=== PATIENT | male | born 1945 | race Caucasian/White ===

== ENCOUNTER 2020-02-05 09:10 | Outpatient (CLI) | payer MEDICARE, SELFPAY ==
[2020-02-05 10:41] LABS: Anion Gap 6 mmol/L (8-16); Blood Urea Nitrogen 26 mg/dL (9-20); Calcium 9.4 mg/dL (8.4-10.2); Carbon Dioxide 30 mmol/L (22-30); Chloride 105 mmol/L (98-107); Estimated Glomerular Filt Rate > 60; Glucose 106 mg/dL (75-110); Potassium 3.5 mmol/L (3.4-5.0); Sodium 141 mmol/L (137-145)
== END 2020-02-05 09:11 | disposition home or self-care (01) ==
PROVIDERS: PCP Nurse Practitioner Family; Visit Provider Nurse Practitioner Adult Health
DX: R79.89 Other specified abnormal findings of blood chemistry (principal)
CPT/HCPCS: 36415; 80048

== ENCOUNTER 2020-03-25 09:34 | Emergency (ER) | payer MEDICARE, SELFPAY ==
--- NOTE | ~2020-03-25 | XR_ITS ---
EXAMINATION: XR chest 1V portable DATE: 03/25/2020 11:19 INDICATION: Edema TECHNIQUE: frontal view of the chest was obtained. COMPARISON: Chest radiograph dated 06/01/2009 FINDINGS: Eventration along the right hemidiaphragm. Opacities at the lateral aspect of both the left and right lung bases and favor atelectasis over pneumonia. No pulmonary edema, pleural effusion or pneumothora x. Heart size is normal with small bilateral paracardial fat pads. Atherosclerotic aorta. IMPRESSION: 1. Bibasilar opacities and favor atelectasis over pneumonia. Reviewed, dictated and finalized at location A. UNITY RELATIONS SPECIALIST
[2020-03-25 10:17] VITALS: BP 119/77; PULSE 74; RESP 18; TEMP 36.6; O2SAT 97
--- NOTE | 2020-03-25 10:24 | ECG_ITS ---
Measurements Intervals [place] Rate: 66 P: 25 TX: 152 QRS: 30 QRSD: 100 T: 57 QT: 406 QTc: 428 Interpretive Statements SINUS RHYTHM DELAYED PRECORDIAL R/S TRANSITION BASELINE ARTIFACT- I, III, AVR, AVL BORDERLINE ECG Electronically Signed On 03-25-2020 10:37:47 DAY SPA MANAGER by All Morrison D.O.
--- NOTE | 2020-03-25 10:25 | ED.GENADULT ---
HPI - General Adult General Chief complaint: Extremity Injury, Lower Stated complaint: Bilateral Leg Edema Time Seen by Provider: 03/25/20 10:02 Source: patient Mode of arrival: ambulatory Limitations: no limitations History of Present Illness HPI narrative: 74 years old white male presented to the ED because of swelling of the lower extremity noticed yesterday slight itching, patient had similar symptoms in the past and got better on Lasix for 2 days and Adderall. Which he stopped because of possible kidney trouble. Patient denies any fever, chills, nausea, vomiting, chest pain, shortness of breath. History of varicose veins. Related Data Home Medications Medication Instructions Recorded Confirmed albuterol mcg INHALATION 03/25/20 amlodipine 10 mg PO DAILY 03/25/20 aspirin mg PO 03/25/20 finasteride 5 mg PO DAILY 03/25/20 fluoxetine 40 mg PO DAILY 03/25/20 hydrochlorothiazide 25 mg PO DAILY 03/25/20 losartan 100 mg PO DAILY 03/25/20 rosuvastatin 40 mg PO DAILY 03/25/20 umeclidinium-vilanterol [Anoro 1 inh INHALATION DAILY 03/25/20 Ellipta] Allergies Allergy/AdvReac Type Severity Reaction Status Date / Time Quinolones Allergy Mild RASH Verified 03/25/20 10:20 celecoxib Allergy Unknown Unknown Verified 03/25/20 10:20 levofloxacin Allergy Unknown Unknown Verified 03/25/20 10:20 Penicillins Allergy Unknown Unknown Verified 03/25/20 10:20 Review of Systems Review of Systems: Narrative: CONSTITUTIONAL: Denies fever, chills, or sweats. EYES: Denies visual changes, redness, or discharge. ENT: Denies rhinorrhea, congestion, sore throat, or otalgia. CARDIOVASCULAR: Denies chest pain, palpitations, or edema. RESPIRATORY: Denies cough or dyspnea. GASTROINTESTINAL: Denies abdominal pain, nausea, vomiting, or diarrhea. GENITOURINARY: Denies dysuria or hematuria. SKIN: Denies rash or itching. MUSCULOSKELETAL: Denies back pain, joint pain, or myalgia. NEUROLOGIC: Denies headache, numbness, or weakness. PSYCHIATRIC: Denies anxiety or depression. [facility] Social History Social History Smoking end date: 04/16/96 Alcohol intake: never Exam Narrative: Exam Narrative: General appearance: Well-developed, well-nourished Skin: Normal color, 1+ edema at the ankles bilaterally up to the mid lower legs, with slight erythematous changes, and diffuse tenderness anteriorly significant on the right lower extremity more than the left. Varicose veins bilaterally Head: Normocephalic, nontraumatic Eyes: Clear conjunctiva ENT: Oropharynx normal, ears normal, nose normal Neck: Supple, nontender Chest and respiratory: Airway patent, no respiratory distress, no accessory muscle use Heart: Regular rate/rhythm Abdomen: Soft, nontender, no organomegaly, quiet bowel sounds Vascular: Normal peripheral pulses, normal capillary refill. Musculoskeletal: Normal range of motion, nontender back Neurologic: Alert and oriented ?3, DRY DIP WORKER is normal as tested, no gross motor deficit Course Course Emergency Course: Stable DISTRIBUTION LINEMAN/PA Physician Supervision Dr. Tavares Consultations Date: 03/25/20 Time: 13:35 Vital Signs Vital signs: Vital Signs Temperature 36.6 C 03/25/20 10:17 Pulse Rate 74 03/25/20 10:17 Respiratory Rate 18 03/25/20 10:17 Blood Pressure 119/77 03/25/20 10:17 Pulse Oximetry 97 03/25/20 10:17 Temperature 36.6 C 03/25/20 10:17 Pulse Rate 74 03/25/20 10:17 Respiratory Rate 18 03/25/20 10:17 Blood Pressure 119/77 03/25/20 10:17 Pulse Oximetry 97 03/25/20 10:17 Medical Decision Making MDM Narrative Medical decision making narrative: Varicose vein insufficiency with
[2020-03-25 10:47] LABS: Basophils Percent Auto 0.3 % (0.2-1.2); Eosinophils Absolute Auto 0.2 K/mm3 (0-0.3); Eosinophils Percent Auto 2.4 % (0-4.4); Hematocrit 42.4 % (42.0-52.0); Immature Granulocyte Absolute 0.02 K/mm3 (0.00-0.031); Immature Granulocyte Percent A 0.3 % (0-0.5); Lymphocytes Absolute Auto 1.15 K/mm3 (0.9-3.2); Mean Corpuscular Volume 84.8 fl (80-100); Mean Platelet Volume 10.5 fl (7.4-10.4); Monocytes Absolute Auto 0.7 K/mm3 (0.1-0.6); Monocytes Percent Auto 9.7 % (2.6-8.5); Neutrophils Absolute Auto 5.5 K/mm3 (1.3-6.7); Neutrophils Percent Auto 72.3 % (45.5-73.1); Platelet Count Result 173 k/mm3 (150-375); Red Cell Distribution Width 14.6 % (11.5-14.5); White Blood Count 7.7 K/mm3 (4.5-10.0)
[2020-03-25 10:48] LABS: Add Urine Microscopic? NO; Appearance Urine Clear (Clear); Bilirubin Urine Negative (Negative); Blood Urine Negative (Negative); Color Urine Straw (Yellow); Glucose Urine UA Negative (Negative); Ketones Urine Negative (Negative); Leukocyte Esterase Ur Negative LEU/UL (Negative); Nitrate Urine Negative (Negative); Protein Urine Negative (Negative); Specific Grav Ur 1.012 (1.001-1.035); Urobilinogen Urine Negative mg/dL (<2.0)
[2020-03-25 11:02] LABS: Alanine Aminotransferase 30 U/L (4-50); Albumin Level 3.6 g/dL (3.5-5.1); Alkaline Phosphatase 91 U/L (38-126); Anion Gap 5 mmol/L (8-16); Aspartate Amino Transferase 24 U/L (17-59); Bilirubin,Total 0.3 mg/dL (0.2-1.3); Blood Urea Nitrogen 22 mg/dL (9-20); Calcium 9.4 mg/dL (8.4-10.2); Carbon Dioxide 28 mmol/L (22-30); Chloride 106 mmol/L (98-107); Estimated CRCL calculation 68 ml/min; Estimated Glomerular Filt Rate > 60; Glucose 120 mg/dL (75-110); Potassium 3.6 mmol/L (3.4-5.0); Sodium 139 mmol/L (137-145)
[2020-03-25 11:10] LABS: NT Pro B Type Natriuretic Pept 112 PG/ML (5-100)
[2020-03-25 13:45] VITALS: BP 122/78; PULSE 76; RESP 18; O2SAT 99
== END 2020-03-25 13:46 | disposition home or self-care (01) ==
PROVIDERS: Emergency Provider Emergency Medicine; PCP Nurse Practitioner Family
DX: R60.0 Localized edema (principal); L03.115 Cellulitis of right lower limb; Z79.82 Long term (current) use of aspirin; R94.31 Abnormal electrocardiogram [ECG] [EKG]
CPT/HCPCS: 36415; 71045; 80053; 81003; 83880; 85025; 93005; 99283

== ENCOUNTER 2021-07-08 10:14 | Outpatient (CLI) | payer MEDICARE, SELFPAY ==
--- NOTE | ~2021-07-08 | US_ITS ---
EXAMINATION: US carotid duplex BI DATE: 07/08/2021 10:50 INDICATION: Left carotid bruit TECHNIQUE: Grayscale, color Doppler, and pulsed Doppler images of the cervical carotid arteries were obtained. The degree of vessel stenosis is placed in one of the following categories: normal, <50%, 5 0-69%, >=70% but less than near-occlusion, near-occlusion, or total occlusion. Note that percent sten osis relative to normal distal artery lumen diameter is indirectly measured from velocity measurement s as described by Efra, et al. Radiology 2003; 229:340-346. COMPARISON: None. FINDINGS: RIGHT: The right common carotid artery (CCA) peak systolic velocity (PSV) is 150 cm/s. The right internal ca rotid artery (ICA) PSV is 77 cm/s. The right ICA end-diastolic velocity (EDV) is 6 cm/s. The right IC A/CCA PSV ratio is 0.5. Grayscale and color Doppler images yield an estimate of <50% diameter reducti on from plaque in the ICA. The external carotid artery (ECA) PSV is 192 cm/s. There is antegrade flow in the right vertebral artery. LEFT: The left CCA PSV is 108 cm/s. The left ICA PSV is 124 cm/s. The left ICA EDV is 27 cm/s. The left ICA /CCA PSV ratio is 1.2. Grayscale and color Doppler images yield an estimate of <50% diameter reductio n from plaque in the ICA. The ECA PSV is 185 cm/s. There is antegrade flow in the left vertebral meryl ry. IMPRESSION: 1. <50% stenosis in the right internal carotid artery. 2. <50% stenosis in the left internal carotid artery. Reviewed, dictated and finalized at location A.
== END 2021-07-08 10:15 | disposition home or self-care (01) ==
PROVIDERS: PCP Hospitalist; Visit Provider Internal Medicine Cardiovascular Disease
DX: R09.89 Other specified symptoms and signs involving the circulatory and respiratory systems (principal); I65.23 Occlusion and stenosis of bilateral carotid arteries
CPT/HCPCS: 93880

== ENCOUNTER 2024-04-28 09:46 | Outpatient (CLI) | payer MEDICARE, SELFPAY ==
--- NOTE | 2024-04-28 09:54 | ECG_ITS ---
Test Date: 2024-04-28 10:21:02 Measurements Intervals [place] Rate: 67 P: 62 PA: 205 QRS: 30 QRSD: 113 T: 71 QT: 408 QTc: 433 Interpretive Statements SINUS RHYTHM MODERATE INTRAVENTRICULAR CONDUCTION DELAY [110+ ms QRS DURATION] Poor R wave progression WARNING: DATA QUALITY MAY AFFECT INTERPRETATION No previous ECG available for comparison Electronically Signed On 04-28-2024 13:09:40 BOOT LINER MAKER by Maria A Seymour M.D.
[2024-04-28 10:43] LABS: Hematocrit 42.5 % (42.0-52.0); Hemoglobin 13.2 g/dL (14.0-18.0); Prothrombin Time 14.1 Seconds (11.1-14.7)
[2024-04-28 10:44] LABS: Partial Thromboplastin Time 27.9 Seconds (22.3-36.8)
[2024-04-28 10:45] LABS: Anion Gap 9 mmol/L (4-12); Blood Urea Nitrogen 25 mg/dL (9-20); Calcium 9.5 mg/dL (8.4-10.2); Carbon Dioxide 24 mmol/L (22-30); Chloride 109 mmol/L (98-107); Estimated Glomerular Filt Rate 44; Glucose 100 mg/dL (65-110); Potassium 3.7 mmol/L (3.4-5.0); Sodium 142 mmol/L (137-145)
== END 2024-04-28 09:47 | disposition home or self-care (01) ==
LOC: ANHSURGERY 09:51
PROVIDERS: Anesthesiology; PCP Hospitalist; Visit Provider Urology
DX: E78.5 Hyperlipidemia, unspecified (principal); D64.9 Anemia, unspecified; I12.9 Hypertensive chronic kidney disease with stage 1 through stage 4 chronic kidney disease, or unspecified chronic kidney disease; N18.32 Chronic kidney disease, stage 3b; Z01.818 Encounter for other preprocedural examination
CPT/HCPCS: 36415; 80048; 85014; 85018; 85610; 85730; 93005

== ENCOUNTER 2024-08-02 10:48 | Emergency (ER) | payer MEDICARE, SELFPAY ==
--- NOTE | ~2024-08-02 | CT_ITS ---
EXAMINATION: CT abdomen pelvis w con DATE: 08/02/2024 12:34 INDICATION: Right lower quadrant abdominal pain TECHNIQUE: Computed tomography (CT) of the abdomen and pelvis was performed with 100 mL Omnipaque-350 intravenous contrast. Automated exposure control and iterative reconstruction technique were employe d. The dose-length product was 870.17 mGy-cm. COMPARISON: CT dated 11/25/2008 FINDINGS: There is some irregular septal line thickening at the periphery of the bilateral lung bases which cou ld be due to atelectasis, mild pulmonary edema or chronic interstitial lung disease with nonspecific interstitial pneumonia (NSIP) pattern. Heart size is normal. No pericardial or pleural effusion. Subc entimeter hepatic cyst. Gallbladder, spleen, pancreas, bilateral adrenal glands and kidneys are tawana l. Small bowel and appendix are normal. There is moderate diverticula along the sigmoid colon with fo steve wall thickening and inflammatory stranding centered about a diverticulum at the mid sigmoid colon consistent with diverticular colitis. No abscess or free peritoneal gas or fluid. Bladder is normal. Small to moderate-sized fat-containing left inguinal hernia. No pathologically enlarged abdominal or pelvic lymphadenopathy. There is calcified atherosclerosis of the aorta and many of the other arteri es. Mild lumbar and lower thoracic spondylosis. IMPRESSION: 1. Radiographically uncomplicated sigmoid diverticulitis. 2. Small to moderate-sized fat-containing left inguinal hernia. 3. Mild paraseptal and thickening at the bilateral lung bases which could be due to atelectasis, mild pulmonary edema or NSIP pattern chronic interstitial lung disease. Reviewed, dictated and finalized at location A. IMPRESSION: 1. Radiographically uncomplicated sigmoid diverticulitis. 2. Small to moderate-sized fat-containing left inguinal hernia. 3. Mild paraseptal and thickening at the bilateral lung bases which could be du e to atelectasis, mild pulmonary edema or NSIP pattern chronic interstitial yumiko g disease.
--- OUTSIDE RECORDS SUMMARY | 2024-08-02 10:50 | XMS_ITS | Patient Health Record ---
Author Organization [facility] Address [address] [place] [address] Care Team Providers Care Industrial Equipment Wirer Name Role Phone Jony Wilcox Unavailable [phone] REASON FOR REFERRAL No Information MEDICATIONS Medication SIG (Take, Route, Frequency, Duration) Notes Start Date End Date Status Losartan Potassium 50 MG TAKE 1 TABLET B Y MOUTH DAILY for 90 Active PROBLEMS Problem Type ICD Code Onset Dates Problem Status W/U Status Risk SNOMED Code Notes Problem Type 2 diabetes mellitus with hyperglycemia (E11.65) Active confirmed Hyperglycemia due to type 2 diabetes mellitus (765287695214978 ) Problem Obesity, unspecified (E66.9) Active confirmed Obesity (602685646) Problem Anxiety disorder, unspecified (F41.9) Active confirmed Anxiety disorde r (876455665) Problem Essential (primary) hypertension (I10) Active confirmed Essential hypertension (86718848) Problem Chronic kidney disease, stage 3b (N18.32) Active confirmed Chronic kidney disease stage 3B (disorder) (217806493) Encounters Encounter Location [place] [address] 09/12/2023 Jony Wilcox Chronic kidney disease, stage 3b N18.32 ; Essential (primary) hypertension I10 ; Type 2 diabetes mellitus with hyperglycemia E11.65 ; Obesity, unspecified E66.9 and Anxiety disorder, unspecified F41.9 [place] [address] 11/14/2023 Jony Wilcox Chronic kidney disease, stage 3b N18.32 ; Essential (primary) hypertension I10 ; Type 2 diabetes mellitus with hyperglycemia E11.65 ; Obesity, unspecified E66.9 and Anxiety disorder, unspecified F41.9 [place] [address] 02/07/2024 [place] [address] 02/08/2024 Jony Wilcox [place] [facility] [address] [facility] [address] [place] [address] 09/12/2023 Jony Wilcox ASSESSMENTS Encounter Date Diagnosis Assessment Notes Treatment Notes Treatment Clinical Notes Section Notes 09/12/2023 Chronic kidney disease, stage 3b (ICD-10 - N18.32) 11/14/2023 Chronic kidney disease, stage 3b (ICD-10 - N18.32) 09/12/2023 Essential (primary) hypertension (ICD-10 - I10) 11/14/2023 Essential (primary) hypertension (ICD-10 - I10) 11/14/2023 Type 2 diabetes mellitus with hyperglycemia (ICD-10 - E11.65) 09/12/2023 Type 2 diabetes mellitus with hyperglycemia (ICD-10 - E11.65) 09/12/2023 Obesity, unspecified (ICD-10 - E66.9) 11/14/2023 Obesity, unspecified (ICD-10 - E66.9) 11/14/2023 Anxiety disorder, unspecified (ICD-10 - F41.9) 09/12/2023 Anxiety disorder, unspecified (ICD-10 - F41.9) PLAN OF TREATMENT No Information
--- OUTSIDE RECORDS SUMMARY | 2024-08-02 10:50 | XMS_ITS ---
Author Organization [facility] Address [address] [address] Care Team Providers Care Embedded Nurse Name Role Phone Jony Wilcox Unavailable [phone] MEDICATIONS Medication SIG (Take, Route, Frequency, Duration) Notes Start Date End Date Status Ergocalciferol 1.25 MG (45400 UT) 1 capsule Orally Once a week for 90 day(s) 09/12/2023 06/07/2024 Active Farxiga 10 MG 1 tablet Orally Once a day for 90 09/12/2023 06/07/2024 Active Losartan Potassium 50 MG 1 tablet Orally Once a day for 90 07/11/2023 Active Calcitriol 0.25 MCG 1 capsule Orally Onc e a day for 90 day(s) 07/11/2023 04/05/2024 Active Ergocalciferol 1.25 MG (04081 UT) 1 capsule Orally Once a week for 90 day(s) 07/11/2023 04/05/2024 Active Calcitriol 0.25 MCG 1 capsule Orally Onc e a day for 90 day(s) 09/12/2023 06/07/2024 Active Allopurinol 100 MG 1 tablet Orally Once a day for 90 day(s) 09/12/2023 06/07/2024 Active Encounters Encounter Location Date Provider Diagnosis Jairo Bruno [address] [place] [address] 11/14/2023 Jony Wilcox Chronic kidney disea se, stage 3b N18.32 ; Essential (primary) hypertension I10 ; Type 2 diabetes mellitus with hyperglycemia E11.65 ; Obesity, unspecified E66.9 and Anxiety disorder, unspecified F41.9 ASSESSMENTS Encounter Date Diagnosis Assessment Notes Treatment Notes Treatment Clinical Notes Section Notes 11/14/2023 Chronic kidney disease, stage 3b (ICD-10 - N18.32) 11/14/2023 Essential (primary) hypertension (ICD-10 - I10) 11/14/2023 Type 2 diabetes mellitus with hyperglycemia (ICD-10 - E11.65) 11/14/2023 Obesity, unspecified (ICD-10 - E66.9) 11/14/2023 Anxiety disorder, unspecified (ICD-10 - F41.9) PLAN OF TREATMENT No Information Progress Notes * Ravinder HINOJOSA EDOB:[birth year] (78 yo M)Acc No.[id number]:11/14/2023 Progress Notes Patient: Ravinder HINOJOSA Provider: MD JEANIE, F.A.C.P, F.A.S.N. :1945 Age:77 Y Sex:Male Date:11/14/2023 Address:[address] [place] [address] Subjective: * Chief Complaints: * * Medical History: * Medications: Taking Losartan Potassium 50 MG Tablet 1 tablet Orally Once a day , Taking Calcitriol 0.25 MCG Capsule 1 capsule Orally Once a day , stop date 04/05/2024, Taking Ergocalciferol 1.25 MG (28376 UT) Capsule 1 capsule Orally Once a week , stop date 04/05/2024, Taking Calcitriol 0.25 MCG Capsule 1 capsule Orally Once a day , stop date 06/07/2024, Taking Allopurinol 100 MG Tablet 1 tablet Orally Once a day , stop date 06/07/2024, Taking Farxiga 10 MG Tablet 1 tablet Orally Once a day , stop date 06/07/2024, Taking Ergocalciferol 1.25 MG (60896 UT) Capsule 1 capsule Orally Once a week , stop date 06/07/2024 Objective: Assessment: * Assessment: 1. Chronic kidney disease, stage 3b - N18.32 (Primary) 2. Essential (primary) hypertension - I10 3. Type 2 diabetes mellitus with hyperglycemia - E11.65 4. Obesity, unspecified - E66.9 5. Anxiety disorder, unspecified - F41.9 Plan: * Treatment: * Billing Information: * Visit Code: 13654 Office Visit, Est Pt., Level 4. * Procedure Codes: * Sign off status: Pending * Provider: MD JEANIE, F.A.C.P, F.A.S.N. Date: 11/14/2023
--- OUTSIDE RECORDS SUMMARY | 2024-08-02 10:50 | XMS_ITS | Continuity of Care Document ---
Author Organization [email or web address] [facility] Address [address] [place] [address] Phone Care Team Providers Care Refinery Operator Visbreaking Name Role Phone Lucas KRAUSE, Jamal Unavailable Unavailable Allergies, Adverse Reactions, Alerts Substance Reaction Status Criticality carbocysteine Active No Information levofloxacin Active No Information PENICILLIN Active No Information Medications Medication Instructions Dosage Effective Dates (start - stop) Status Comments Vigamox 0.5 % eye drops Instill 1 drop in the operated eye QID x 1 week, and then TID until bottle runs out - Active ok to substitute Polytrim with same instructions 5ML bottle prednisolone acetate 1 % eye drops,suspension instill 1 drop in the operated eye QID x 1 week, TIDx 1 week, BID x 1 week then Qday x 1 week then stop - Active ketorolac 0.5 % eye drops instill 1 drop in the operated eye 3 times a day for 4 weeks - Active Vigamox 0.5 % eye drops Instill 1 drop in the operated eye QID x 1 week, and then TID until bottle runs out - Active ok to substitute Polytrim with same instructions 5ML bottle prednisolone acetate 1 % eye drops,suspension instill 1 drop in the operated eye QID x 1 week, TIDx 1 week, BID x 1 week then Qday x 1 week then stop - Active ketorolac 0.5 % eye drops instill 1 drop in the operated eye 3 times a day for 4 weeks - Active Aspirin Low Dose 81 mg tablet,delayed release take 1 tablet by oral route every day 81 MG - Active Fish Oil 1,000 mg (120 mg-180 mg) capsule take 1 capsule by oral route every day 1 capsule - Active Crestor 20 mg tablet take 1 tablet by oral route every day 20 MG - Active fluoxetine 40 mg capsule take 1 capsule by oral route every day in the morning 40 MG - Active amlodipine 10 mg tablet take 1 tablet by oral route every day 10 MG - Active losartan 25 mg tablet take 1 tablet by oral route every day 25 MG - Active Anoro Ellipta 62.5 mcg-25 mcg/actuation powder for inhalation inhale 1 puff by inhalation route every day at the same time each day 1.00 puff - Active Procedures Procedure Date Remove Cataract, Insert Lens IOLMaster-Professional Remove Cataract, Insert Lens IOLMaster-Professional No Charge Orbscan No Charge Refraction IOLMaster-Technical No Charge AScan No Charge GDX Retina Office/outpatient Visit, [facility] Advance Directives Directive Yes / No Effective Date File Name No Information Encounters Encounter Description Practice Location Reason(s) For Visit Diagnoses Date Provider Providers Copied on Encounter [facility], [address] [place], [place] [address], [place], [place], [id number], tel:[phone] [facility] No Information Jan- 0 9 Lucas Berry. [address] [place], [place], [address], [place]. tel:[phone] Referring Provider: Agnieszka Rodriguez OD, [place], [address]. tel:[phone] [facility], [address] [place] [address] [address], [place], [place], [address], tel:[phone] [facility] Professional No Information Jan- 9-201 9 Lucas Berry. [address] [facility] [place], [address], [place]. tel:[phone] Referring Provider: Agnieszka Rodriguez OD, [place], [address]. tel:[phone] [facility], [address], [place], [place], [address], [place] tel:[phone] SEC Idalia Greenberg No Information Oct-1 7- 9 Lucas Berry. [address], [place], [place], [address], [place]. tel:[phone] [facility], [address], [place], [place], [address], [place] tel:[phone] [facility] No Information Oct-0 2- 9 Lucas Berry. [address], [place], [place], [address], [place]. tel:[phone] Referring Provider: Agnieszka Rodriguez OD, [address] [place], [address]. tel:[phone] [facility], [address], [place], [place], [address], [place] tel:[phone] SEC Reed ESTEBAN Professional No Information Oct-0 9 Lucas Berry. [address] [facility], [address], [place], [place], [address], [place]. tel:[phone] Referring Provider: Agnieszka Rodriguez OD, [address] [place], [address]. tel:[phone] [facility], [address], [place], [place], [address], [place] [phone] SEC Idalia Greenberg No Information Sep-2 9 Lucas Berry. [address], [address] [place], [address], [place]. tel:[phone] Office/outpa tient Visit, [facility], [address], [place], [place], [address], tel:[phone] SEC Idalia Greenberg Cataract evaluation (chief complaint) Combined forms of age-related cataract, bilateralVitr eous degeneration, left eyePinguecula , bilateralCorn eal opacity of left eye Dec- 0201 9 Lucas Berry. [address], [place], [place], [address], [place]. tel:[phone] Specialist : Agnieszka Rodriguez OD, [address], [place], [address]. tel:[phone] erring Provider: Agnieszka Rodriguez OD, [address] [place], [address]. tel:[phone] Family History Family Member Type Diagnosis Age At Onset No Information Payers Payer name Insurance type Covered green party ID Lul garcía(s) [facility] Mdcr Adv CI [id number] Social History Type Description Quantity Date Captured Comments Sex Male Smoking Status No Information Chief Complaint And Reason For Visit No Information Reason For Referral Reason For Referral No Information Plan Of Treatment Date Type Action Status Patient Education Cataract Surgery: What to Expect at H~ completed History Of Present Illness Encounter Date Complaint History Of Prese nt Illness Cataract evaluation The 73 year old male presents for evaluation of Cataract evaluation in the right eye and left eye. Pt referred by Dr. Rodriguez in [place], [place] - waiting on notes. Pt states that vision in OS seems to be darker than with OD. Pt reports this morning his eyes have been itching. Pt denies flashes and floaters OU. Pt reports noticing more difficulty driving on bright days or at night because of glare. Pt states reading has been a little more difficult OU with glasses. Pt reports in spiritism if the light is shining in the windows he has difficulty recognizing peoples faces. Pt reports these have all been gradual over the past 6 months or so. Functional Status Date Functional Assessmen t No Information Instructions Date Instruction Additional Infor mak Impression/Plan Assessments Type Assessment Date No Information Patient Care Teams Name Effective Dates (start - stop) Status Members No Information
--- OUTSIDE RECORDS SUMMARY | 2024-08-02 10:51 | XMS_ITS | Clinical Summary ---
Author Organization [facility] [employer] Address [address] [place] [address] Care Team Providers Care Certified Alcohol And Drug Counselor Name Role Phone Michael Cheney MD Unavailable [phone] Nick Almanzar MD Primary Care Provider [phone] Source Comments [facility],non-owned Affiliates and Associated Physician Practices is amultiple site organization consisting of ambulatory clinics and hospital sitesin [place], [place], [place] and [place]. This disclosure is being madepursuant to the Care Everywhere program and may not contain all information available regarding this patient. Last updated 18.[facility] [employer] Allergies Active Allergy Reactions Criticality Noted Date Comments Levofloxacin Other Reaction: feels funny, Moxifloxacin Other Reaction: didnt feel well, Penicillins Other Reaction: hair loss, dents in arms, Medications * Be aware that medications may not be up to date on this document. Alwaysverify current medications with the patient. losartan (COZAAR) 50 MG tablet 8 Active hydroCHLOROthia zide (HYDRODIURIL) 25 MG tablet 8 Active finasteride (PROSCAR) 5 MG tablet 8 Active amLODIPine (NORVASC) 10 MG tablet 8 Active albuterol (PROVENTIL;VENT ROSEANNE) (2.5 MG/3ML) 0.083% nebulizer solution 8 Active acetaminophen-c odeine (TYLENOL #3) 300-30 MG tablet TK 1 T PO Q 4 H PRN P 0 8 Active tiZANidine (ZANAFLEX) 4 MG tabletIndicatio ns:Muscle Spasm Take 1 tablet by mouth every 8 hours as needed for Muscle Spasms Reasons: Muscle Spasm 50 tablet 1 0 Active Additional Information Patient not taking.Reported on 04/05/2021 sertraline (ZOLOFT) 100 MG tablet Take 100 mg by mouth once daily 1 Active Quinwood-3 1000 MG Take 1 capsule by mouth once daily 1 Active Fluticasone-Ume clidin-Vilant (TRELEGY ELLIPTA) 200-62.5-25 MCG/INH AEPB Inhale 1 puff by mouth once daily Active clotrimazole (MYCELEX) 10 MG loco Take 10 mg by mouth as needed 1 Active ferrous sulfate 325 (65 FE) MG tablet Take 325 mg by mouth once daily Active benzonatate (TESSALON) 200 MG capsule Take 200 mg by mouth 3 times daily 1 Active cetirizine (ZYRTEC) 10 MG tablet Take 10 mg by mouth once daily Active fluticasone propionate (FLONASE) 50 MCG/ACT nasal spray 1 Active losartan (COZAAR) 100 MG tablet Take 100 mg by mouth once daily 1 Active albuterol HFA (PROVENTIL; VENTOLIN; PROAIR) 108 (90 Base) MCG/ACT inhaler INHALE 2 PUFFS BY MOUTH EVERY 4 TO 6 HOURS NEEDED 1 Active rosuvastatin (CRESTOR) 40 MG tablet Take 40 mg by mouth once daily 1 Active aspirin (ASPIRIN) 81 MG chew tablet Take 81 mg by mouth once daily Active Active Problems Problem Noted Date Diagnosed Date Personal history of colonic polyps 01/27/2021 Overview (01/16/2024): Added automatically from request for surgery [id number] IMO Replacement Utility 01/16/2024 Bilateral primary osteoarthritis of knee 021 AMAYA on CPAP 12/23/2020 CAP (community acquired pneumonia) 10/27/2020 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 09/16/2020 Overview (02/25/2021): Last Assessment & Plan: Vestibular rehab for vestibular dysfunction Good hydration Dry skin dermatitis 07/19/2020 Overview (02/25/2021): Last Assessment & Plan: Will check TSH, CMP. Gave triamcinolone cream to use and encouraged to continue good lotion usage. Generalized weakness 07/19/2020 Overview (02/25/2021): Last Assessment & Plan: Encouraged exericse/ walking. Will check labs as ordered. Change antidepressants. F/u 1 month LBBB (left bundle branch block) 06/08/2020 COPD (chronic obstructive pulmonary disease) Overview (02/25/2021): Last Assessment & Plan: Continues to have significant cough, barking cough; no wheezes and good air movement; completed pulmonary rehab -some improvement with use of nebulizer and standing up from sitting -continue with albuterol nebulizer, will evaluate hiatal hernia as source of GERD and/or coughing; consider starting PPI if limted response BPH (benign prostatic hyperplasia) 05/06/2020 Overview (02/25/2021): Last Assessment & Plan: Patient does report increased urine frequency. UA negative for UTI. On Finasteride at home. Replaced with Dutasteride while here. Vertigo 04/07/2020 Overview (02/25/2021): Last Assessment & Plan: Vestibular rehab for vestibular dysfunction Good hydration Coronary artery calcification 03/27/2019 Primary osteoarthritis of left knee 01/25/2018 Synovial cyst of left popliteal space 11/04/2017 Benign paroxysmal positional vertigo due to bilateral vestibular disorder 10/03/2016 Overview (01/25/2018): Last Assessment & Plan: Will try meclizine, PT and obtain EKG today. Labs just drawn and were normal. Immunizations Immunization Administration Dates Next Due Covid Pfizer primary monoval ent 12+ yr 0.3mL Purple cap 01/26/2021,06/29/2020,06/08/2020 Family History Medical History Relation Name Comments Alzheimer's Disease Father CVA Father Hypertension Father CVA Mother Cancer - Breast Mother Hypertension Mother Relation Name Status Comments Father Mother Social History Tobacco Use Types Packs/Day Years Used Date Smoking Tobacco: Former Cigarettes Q uit: 1996 Smokeless Tobacco: Never Alcohol Use Standard Drinks/Week Comments Yes 0 (1 standard drink = 0.6 oz pur e alcohol) Seldomly Sex and Gender Information Value Date Recorded Sex Assigned at Male 03/25/2021 3:11 PM 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 OPERATOR Legal Sex Male 6:25 AM FRINGING MACHINE OPERATOR Gender Identity Male 03/25/2021 3:11 PM FRINGING MACHINE OPERATOR Sexual Orientation Straight 03/25/2021 3: 11 PM FRINGING MACHINE OPERATOR Last Filed Vital Signs Vital Sign Reading Time Taken Comments Blood Pressure - - Pulse - - Temperature - - Respiratory Rate - - Oxygen Saturation - - Inhaled Oxygen Concentration - - Weight 93.9 kg (207 lb) 04/05/2021 2:31 PM FRINGING MACHINE OPERATOR Height 171.5 cm (5' 7.5 ) 04/05/2021 2:31 PM FRINGING MACHINE OPERATOR Body Mass Index 31.94 04/05/2021 2:31 PM FRINGING MACHINE OPERATOR Plan of Treatment Health Maintenance Due Date Last Done Comments HEPATITIS C SCREENING 11/23/1964 DTAP/TDAP/TD VACCINES (1 - Tdap) 1965 PNEUMOCOCCAL VACCINE 50+ (1 of 2 - PCV) 1965 ZOSTER VACCINE (1 of 2) 1996 Respiratory Syncytial Virus (RSV) Vaccine Pt: or over 60 yrs (1 - 1-dose 75+ series) 2021 COVID-19 VACCINE ( season) 2023 01/26/2021, 06/29/2020, 06/08/2020 DEPRESSION SCREENING 04/16/2024 MEDICARE AWV CALENDAR YEAR 2024 INFLUENZA VACCINE (Season Ended) 2024 03/04/2019, 03/12/2018, 03/12/2018, Additional history exists HEPATITIS B VACCINE Aged Out No longe r eligible based on patient's age to complete this topic HIB VACCINE Aged Out No longer eligi ble based on patient's age to complete this topic HPV VACCINE Aged Out No longer eligi ble based on patient's age to complete this topic MENINGOCOCCAL (Group B) VACCINE SHARED DECISION-MAKING Aged Out No longer eligible based on patient's age to complete this topic MENINGOCOCCAL GROUPS A/C/Y/W VACCINE Aged Out No longer eligible based on patient's age to complete this topic Insurance [facility] MANAGED MEDICARE ADV AETNA MEDICARE ADV SELF PAY NO INSURANCE Member Subscriber Plan / Payer (Ef fective for All Dates) Name:Ravinder Hinojosa Member ID:Not on file Relation to Subscriber:Not on file Name:RAVINDER HINOJOSA Subscriber ID:Not on file (Home) Address: [address] [place] [id number] Payer ID:Not on file Group ID:Not on file Type:Self Pay Address: [place], [place] Care Teams Certified Alcohol And Drug Counselor Relationship Specialty Start Date End Date Nick Almanzar MD [address] [place] [address] PCP - General Family Medicine 02/25/21 [place] [address] [address] [address] Orthopedic Surgery 01/25/18
--- OUTSIDE RECORDS SUMMARY | 2024-08-02 10:51 | XMS_ITS ---
Author Organization [facility] Address [address] [facility] [address] [facility] [address] [place] [address] Care Team Providers Care Pilot Plant Technician Name Role Phone Jony Wilcox Unavailable [phone] Encounters Encounter Location Date Provider Diagnosis Jairo Bruno [address] [place] [address] 02/07/2024 I maykel Wilcox PLAN OF TREATMENT No Information Progress Notes * Ravinder HINOJOSA EDOB:[birth year] (78 yo M)Acc No.[id number]:02/07/2024 Progress Notes Patient: Ravinder HINOJOSA Provider: MD JEANIE, Ester.Lorin.C.P, F.A.S.N. :1945 Age:78 Y Sex:Male Date:02/07/2024 Address:[address] [place] [address] Subjective: * Chief Complaints: * * Medical History: Objective: Assessment: Plan: * Treatment: * Billing Information: * Visit Code: * Procedure Codes: * Sign off status: Pending * Provider: MD JEANIE, Ester.Lorin.C.P, F.A.S.N. Date: 02/07/2024
--- OUTSIDE RECORDS SUMMARY | 2024-08-02 10:51 | XMS_ITS ---
Author Organization [facility] Address [address] [facility] [address] [facility] [address] [place] [address] Care Team Providers Care Supervisor Finish End Name Role Phone Jony Wilcox Unavailable [phone] Encounters Encounter Location Date Provider Diagnosis Jairo Bruno [address] [place] [address] 02/08/2024 Ivonne Wilcox PLAN OF TREATMENT No Information Progress Notes * Ravinder CHAPMAN EDOB:[birth year] (78 yo M)Acc No.[id number]:02/08/2024 Patient: Ravinder CHAPMAN Provider: MD JEANIE, Ester.Lorin.C.P, F.A.S.N. :1945 Age:78 Y Sex:Male Date:02/08/2024 Address:[address] [place], [place] [id number] Subjective: * Chief Complaints: Objective: Assessment: Plan: * Billing Information: * Visit Code: * Procedure Codes: * Sign off status: Pending * Provider: MD JEANIE, Ester.Lorin.C.P, F.A.S.N. Date: 02/08/2024
[2024-08-02 10:57] VITALS: BP 177/67; PULSE 62; RESP 20; TEMP 36.6; O2SAT 96
--- OUTSIDE RECORDS SUMMARY | 2024-08-02 11:07 | XMS_ITS | Continuity of Care Document ---
Author Organization [employer] [facility] Address [address] [facility] [address] [place] [address] Phone Care Team Providers Care Level Vial Sealer Name Role Phone Lucas KRAUSE, Jamal Unavailable [...] AScan No Charge GDX Retina Office/outpatient Visit, [facility] Advance Directives Directive Yes / No Effective Date File Name No Information Encounters Encounter Description Practice Location Reason(s) For Visit Diagnoses Date Provider Providers Copied on Encounter [facility], [address] [place], [place] [address], [place], [place], [address], tel:[phone] [facility] No Information Jan- 0 9 Lucas Berry. [address] [place], [place], [address], [place]. tel:[phone] Referring Provider: Agnieszka Rodriguez OD, [place], [address]. tel:[phone] [facility] [place] [facility], [address] [place] [address] [address], [place], [place], [address], tel:[phone] [facility] Professional No Information Jan- 9-201 9 Lucas Berry. [address] [facility], [facility] [place], [address], [place]. tel:[phone] Referring Provider: Agnieszka Rodriguez OD, [place], [address]. tel:[phone] [facility] [place] [facility], [address], [place], [place], [address], [place] tel:[phone] SEC Idalia Greenberg No Information Oct-1 7- 9 Lucas Berry. [address], [place], [place], [address], [place]. tel:[phone] [facility], [address], [place], [place], [address], [place] tel:[phone] [facility] No Information Oct-0 2- 9 Lucas Berry. [address], [place], [place], [address], [place]. tel:[phone] Referring Provider: Agnieszka Rodriguez OD, [address] [place], [address]. tel:[phone] [facility], [address], [place], [place], [address], [place] tel:[phone] SEC Reed ESTEBAN Professional No Information Oct-0 9 Lucas Berry. [address] [facility], [address], [place], [place], [address], [place]. tel:[phone] Referring Provider: Agnieszka Rodriguez OD, [address] [place], [address]. tel:[phone] [facility], [address], [place], [place], [address], [place] [phone] SEC Idalia Greenberg No Information Sep-2 9 Lucas Berry. [address] [place], [address], [place]. tel:[phone] Office/outpa tient Visit, [facility], [address], [place], [place], [address], tel:[phone] SEC Idalia Greenberg Cataract evaluation (chief complaint) Combined forms of age-related cataract, bilateralVitr eous degeneration, left eyePinguecula , bilateralCorn eal opacity of left eye Dec- 0201 9 Lucas Berry. [address], [place], [place], [address], [place]. tel:[phone] Specialist : Agnieszka Rodriguez OD, [address] [place], [place], [address]. tel:[phone] erring Provider: Agnieszka Rodriguez OD, [address] [place], [address]. tel:[phone] Family History Family Member Type Diagnosis Age At Onset No Information Payers Payer name Insurance type Covered libertarian ID Lul garcía(s) [facility] Mdcr Adv CI [id number] Social History Type Description Quantity Date Captured [...] eye. Pt referred by Dr. Rodriguez in [place], [place] - waiting on notes. Pt states that vision in OS seems to be darker than with OD. Pt reports this morning his eyes have been itching. Pt denies flashes and floaters OU. Pt reports noticing more difficulty driving on bright days or at night because of glare. Pt states reading has been a little more difficult OU with glasses. Pt reports in sabianism if the light is shining in the [...]
--- OUTSIDE RECORDS SUMMARY | 2024-08-02 11:07 | XMS_ITS | Encounter Summary ---
Author Organization [facility] Healthcare Address [address] [place] [address] Care Team Providers Care Rn Clinical Coordinator Name Role Phone Luke Santiago MD Unavailable Michael Lynch MD Unavailable Nick Almanzar MD Primary Care Provider [phone] Maribell Diaz LPN Unavailable [phone] Savannah Staton MA Unavailable [phone] Savannah Staton MA Unavailable Emmanuel Rodriguez LPN Unavailable Jony Wilcox MD Unavailable [phone] Maria A Seymour MD Unavailable [phone] Alex Urbina MD Unavailable Millicent Mccracken RN Unavailable Vanessa Darling NP Unavailable Encounter Details Date Type Department Care Team (Latest Contact Info) Description 05/23/2022 Documentation Neurology Ana Mendez MD Social History Tobacco Use Types Packs/Day Years Used Date Smoking Tobacco: Former Cigarettes 1 30.6 1 967 - 1996 Smokeless Tobacco: Never Alcohol Use Standard Drinks/Week Comments No 0 (1 standard drink = 0.6 oz pur e alcohol) Social Connection and Isolat ion Panel [NHANES] Answer Date Recorded In a typical week, how many times do you talk on the phone with family, friends, or neighbors? More than three times a week 04/07/2022 How often do you get togethe r with friends or relatives? More than three times a week 04/07/2022 How often do you attend chur or mandaen services? More than 4 times per year 04/07/2022 Do you belong to any clubs o r organizations such as latter-day groups, unions, fraternal or athletic groups, or school groups? No 04/07/2022 How often do you attend meet ings of the clubs or organizations you belong to? Never 04/07/2022 Are you , , di vorced, , never , or living with a partner? 04/07/2022 AUDIT-C Answer Date Recorded Q1: How often do you have a drink containing alc ohol? Monthly or less 03/15/2022 Q2: How many drinks containi ng alcohol do you have on a typical day when you are drinking? 1 or 2 03/15/2022 Q3: How often do you have si x or more drinks on one occasion? Never 03/15/2022 Overall Financial Resource Strain (CARDIA) Answe r Date Recorded How hard is it for you to pa y for the very basics like food, housing, medical care, and heating? Not hard at all 04/07/2022 PHQ-2 Answer Date Recorded PHQ-2 Total Score 1 12/14/2021 Hunger Vital Sign Answer Date Recorded Within the past 12 months, y ou worried that your food would run out before you got the money to buy more. Never true 04/07/20 22 Within the past 12 months, t he food you bought just didn't last and you didn't have money to get more. Never true 04/07/2022 PRAPARE - Transportation Answer Date Re corded In the past 12 months, has l ack of transportation kept you from medical appointments or from getting medications? No 03/17 In the past 12 months, has l ack of transportation kept you from meetings, work, or from getting things needed for daily living? No 04/07/2022 Housing Stability Vital Sign Answer José Miguel e Recorded In the last 12 months, was t here a time when you were not able to pay the mortgage or rent on time? No 04/07/2022 In the last 12 months, how many places have you lived? 1 04/07/2022 In the last 12 months, was t here a time when you did not have a steady place to sleep or slept in a snf (including now)? No 04/07/2022 Sex and Gender Information Value Date Recorded Sex Assigned at Not on file Legal Sex Male 1:30 PM [employer]ARITY DEVELOPER Gender Identity Male 02/21/2021 12:31 PM [employer]ARITY DEVELOPER Sexual Orientation Straight 12/22/2020 11 :36 AM CDT documented as of this encounter Plan of Treatment Not on file documented as of this encounter Visit Diagnoses Not on filedocumented in this encounter Additional Health Concerns Infection Onset Date Last Indicated Resolved Time COVID: Suspected 05/30/2022 05/30/2022 05/30/2022 6:01 AM CLARITY DEVELOPER Coronavirus, contact + droplet 05/30/2022 05/30/2022 06/10/2022 10:20 AM CLARITY DEVELOPER COVID19 Comment:06/10/2022 This patient has recovered from a previous COVID infection and can be managed with routine PPE Opal Sorto RN 05/30/2022 05/30/2022 06/10/2022 10:17 AM CLARITY DEVELOPER COVID: Recovered Comment:Added based on recent COVID infection. 06/10/2022 06/10/2022 09/08/2022 3:05 AM C DT COVID: Suspected 07/18/2022 07/18/2022 07/18/2022 10:05 AM CDT COVID19 Comment:Patient is COVID recovered. 07/18/2022 Lei Arnold 07/18/2022 07/18/2022 07/18/2022 11:47 AM CDT COVID: Recovered Comment:Added based on recent COVID infection. 07/18/2022 09/14/2022 10/16/2022 3:05 AM C DT COVID: Suspected 06/16/2023 06/16/2023 06/16/2023 6:46 PM CLARITY DEVELOPER documented as of this encounter Care Teams Rn Clinical Coordinator Relationship Specialty Start Date End Date Nick Almanzar MD [address] [place] [address] PCP - General Family Medicine 12/23/20 Luke Santiago MD Consulting Physician Pulmonary Disease 05/15/20 [place] [address] [facility] [address] [place] [address] Consulting Physician Pulmonary Disease 11/02/20 Maribell Diaz LPN [address] [place] [address] [address] [place] [address] Account Officer 08/16/22 09/06/22 Savannah Staton MA [address] [place] [address] [address] [place] [address] ACO Care Visual C Developer 02/22/23 02/22/23 Savannah Staton MA [address] [place] [address] [address] [place] [address] ACO Care Visual C Developer 02/23/23 02/23/23 Emmanuel Rodriguez LPN [address] [place] [address] [address] [place] [address] ACO Care Visual C Developer 05/21/23 06/20/23 Jony Wilcox MD [address] [place] [address] [address] [place] [address] Consulting Physician Nephrology 06/19/23 Maria A Seymour MD [address] [facility] [address], [place] [id number] Consulting Physician Interventional Cardiology 06/19/23 Alex Urbina MD [address] [facility] [address] [place], [place] [id number] Consulting Physician Cardiology 06/19/23 Millicent Mccracken, RN [address] [place] [address] [address] [place] [address] Account Officer 06/20/23 07/18/23 [place] [address] [address] [facility] [address] [place] [address] Nurse Practitioner Order Booker 02/27/24 documented as of this encounter
--- OUTSIDE RECORDS SUMMARY | 2024-08-02 11:07 | XMS_ITS ---
Author Organization [facility] Address [address] [place] [address] Care Team Providers Care Photogrammetric Technician Name Role Phone Luke Santiago MD Unavailable Michael Lynch MD Unavailable [phone] Nick Almanzar MD Primary Care Provider [phone] Jony Wilcox MD Unavailable [phone] Maria A Seymour MD Unavailable [phone] Alex Urbina MD Unavailable Vanessa Darling NP Unavailable Dialysis Access Sites Type Status Location Placement Date Removal Da te Hemodialysis Cath Double 05/02/22 Tunneled catheter Right Internal Jugular Inactive Right Neck (side) - Anterior 05/02/2022 05/25/2022 Hemodialysis Cath Triple 04/30/22 Non-tunneled catheter Left Femoral Inactive Left Thigh - Anterior 04/30/202204/16 Hemodialysis Cath Triple 04/11/22 Right Internal Jugular Inactive Right Neck (side) - Anterior 04/11/2022 04/30/2022 Hemodialysis Cath Triple 03/30/22 Right Femoral Inactive Right Thigh - Anterior 03/30/2022 Procedures Procedure Name Priority Date/Time Associated Diagnosis Comments EGFR Routine 07/09/2024 10:04 AM CDT PROTEIN / CREATININE RATIO, URINE, RANDOM Routine 07/09/2024 10:04 AM CDT PTH Routine 07/09/2024 10:04 AM CDT RENAL FUNCTION PANEL Routine 07/09/2024 10:04 AM CDT URIC ACID Routine 07/09/2024 10:04 AM CDT CBC WITHOUT DIFFERENTIAL Routine 07/09/2024 10:04 AM CDT VITAMIN D 25 HYDROXY Routine 07/09/2024 10:04 AM CDT VITAMIN D 25 HYDROXY Routine 06/18/2024 10:33 AM HOG SAWYER Age-related osteoporosis without current pathological fracture Vitamin D deficiency DEXA TBS AXIAL SKELETON BONE DENSITY 1 OR MORE SITES Schedule Routine, Read Routine (OP Routine) 06/17/2024 12:57 PM HOG SAWYER Age-related osteoporosis without current pathological fracture US ABDOMINAL AORTIC ANEURYSM SCREENING Schedule Routine, Read Routine (OP Routine) 02/12/2024 9:07 AM CDT Screening for abdominal aortic aneurysm COLONOSCOPY 03/28/2021 7:23 AM HOG SAWYER HEPATITIS C ANTIBODY Routine 01/19/2020 2:11 PM CDT Encounter for hepatitis C screening test for low risk patient from Last 3 Months or Most Recently Relevant to Health Maintenance Allergies Active Allergy Reactions Criticality Noted Date Comments Doxycycline Muscle pain Medium 05/23/2023 Levofloxacin Other (See comments) Low Reaction: feels funny, Moxifloxacin Other (See comments) Low Reaction: didnt feel well, Penicillins Other (See comments) Low Reaction: hair loss, dents in arms, Spironolactone Other (See comments) Low 06/27/2021 Gynecomastia Medications albuterol HFA (PROVENTIL HFA,VENTOLIN HFA,PROAIR HFA) 90 mcg/actuation inhaler Inhale 2 puffs every 6 (six) hours as needed for wheezing or shortness of breath 05/26/19 21 Active albuterol 2.5 mg /3 mL (0.083 %) nebulizer solution Take 3 mL (2.5 mg total) by nebulization every 6 (six) hours as needed for shortness of breath 05/26/19 21 Active ferrous sulfate 325 mg (65 mg of elemental iron) tabletIndications: Iron Deficiency Anemia Take 1 tablet (325 mg total) by mouth daily with breakfast Currently taking one tablet of 27 mg ferrous gluconate by mouth daily. Active omega-3 fatty acids 1,000 mg capsuleIndications :per md advisement Take 1 capsule by mouth every morning fish oil; patient taking 1200 mg softgels. 10/28/19 21 Active Trelegy Ellipta 200-62.5-25 mcg inhaler USE 1 INHALATION BY MOUTH DAILY 120 each 5 02/10/20 22 Active acetaminophen (TYLENOL) 500 mg tabletIndications: Pain Take 1 tablet (500 mg total) by mouth every 6 (six) hours as needed for pain Active finasteride (PROSCAR) 5 mg tablet Take 1 tablet (5 mg total) by mouth daily 90 tablet 3 08/17/19 23 Active aspirin 81 mg enteric coated tablet Take 1 tablet (81 mg total) by mouth daily Active meclizine (ANTIVERT) 12.5 mg tabletIndications: Middle ear effusion, bilateral,Dizzines s Take 1 tablet (12.5 mg total) by mouth 3 (three) times a day as needed for dizziness 90 tablet 05/15/19 24 Active nitroglycerin (NITROSTAT) 0.4 mg SL tabletIndications: Coronary artery disease of [place] artery of [place] heart with stable angina pectoris Place 1 tablet (0.4 mg total) under the tongue every 5 (five) minutes as needed for chest pain May repeat dose every 5 minutes for up to 3 doses total. 25 tablet 3 07/19/19 24 Active amLODIPine (NORVASC) 10 mg tablet Take 1 tablet (10 mg total) by mouth daily 90 tablet 3 08/13/19 24 Active sertraline (ZOLOFT) 25 mg tablet Take 1 tablet (25 mg total) by mouth daily 90 tablet 4 08/13/[address] (CYMBALTA) 30 mg capsule Take 1 capsule (30 mg total) by mouth daily 90 capsule 3 08/15/19 24 025 Active carvediloL (COREG) 25 mg tablet Take 1 tablet (25 mg total) by mouth 2 (two) times a day with meals 180 tablet 3 08/27/19 24 025 Active dapagliflozin propanediol (Farxiga) 10 mg tablet Take 1 tablet (10 mg total) by mouth daily 90 tablet 3 12/12/19 24 Active HYDROcodone-acetam inophen (NORCO) 5-325 mg per tabletIndications: Pain Take 1 tablet by mouth every 8 (eight) hours as needed for pain 10 tablet 02/13/20 24 Active rosuvastatin (CRESTOR) 40 mg tabletIndications: Mixed hyperlipidemia Take 1 tablet (40 mg total) by mouth daily 100 tablet 3 05/23/19 25 Active ergocalciferol (VITAMIN D) 50,000 unit capsuleIndications :Osteoporosis,Mallorie min D Deficiency Take 1 capsule (50,000 Units total) by mouth every 14 (fourteen) days 6 capsule 3 06/18/19 25 026 Active allopurinoL (ZYLOPRIM) 100 mg tablet Take 1 tablet (100 mg total) by mouth daily 90 tablet 3 06/25/19 25 026 Active losartan (COZAAR) 50 mg tablet Take 1 tablet (50 mg total) by mouth daily 90 tablet 3 06/25/19 25 026 Active Active Problems Problem Noted Date Diagnosed Date Secondary hyperparathyroidism, not elsewhere cla ssified 06/02/2024 Lumbar stenosis with neurogenic claudication Atrophy of muscle of back at cervical level 10/14 Cervical post-laminectomy syndrome 11/01/2023 Chest pain, unspecified type 06/16/2023 Unstable angina 06/16/2023 Assessment & Plan (12/27/2023 1:35 PM CDT): Stable, well controlled; no significant episodes of chest pain; recent cardiac catheterization demonstrated moderate disease with no need for intervention; continue with aggressive lifestyle and risk modification Continue rosuvastatin 40 mg daily, ASA 81 mg daily Assessment & Plan (10/16/2023 4:10 PM CDT): Continues to have some chest pain Continue ASA 81 mg daily, rosuvastatin 40 mg daily Assessment & Plan (07/17/2023 4:24 PM CDT): Patient admitted for chest pain; cardiac workup generally negative; continue to reduce risk of cardiac disease, continue ASA 81 mg daily, rosuvastatin 40 mg daily History of DVT (deep vein thrombosis) 03/18/2023 Chronic anticoagulation 03/18/2023 Stage 3b chronic kidney disease (CKD) 03/18/2023 Assessment & Plan (12/27/2023 1:34 PM CDT): Stable, follows with nephrology; no major advancement disease; patient would like 2nd opinion, will refer to Dr. Mcduffie Continue Farxiga 10 mg daily Assessment & Plan (10/16/2023 4:10 PM CDT): Stable, EGFR sitting around 38-42; will continue to monitor closely Assessment & Plan (07/17/2023 4:24 PM CDT): Stable, well controlled; no major changes to EGFR; will continue to monitor, avoid nephrotoxic agents; control blood pressure Mild cognitive impairment 12/20/2022 Assessment & Plan (12/27/2023 1:35 PM CDT): Stable, improving; patient reports he continues to have some word-finding difficulty forgetfulness, but generally improved since brain injury approximately 2 years ago; continue with regular physical activity; Assessment & Plan (10/16/2023 4:10 PM CDT): Stable, 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; difficulty with word finding, helps with answering some questions, at plateau in recovery and patient accepts where use Functions well around the house without assistance, is able to drive short distances Assessment & Plan (12/20/2022 1:09 PM CDT): Has been improving; was acutely worsened after hospitlaization; has beeni ncognitive rehab -starting to read again; starting to perform old activities Given TBI occurred approximately 9 months ago; patient may continue to benefit from cognitive rehabilitation; will provide referral options for patient Swelling of both lower extremities 08/07/2022 Assessment & Plan (08/07/2022 3:07 PM CDT): Elevate legs, Anupam hose on in am and off at hour of sleep. Muscle weakness (generalized) 07/25/2022 Assessment & Plan (11/10/2022 9:32 AM CDT): Stable, improving; continues to engage with physical therapy, using cane for movement and ambulation outside; does not require cane inside the house Continue with regular physical exercise, home exercises to regain strength Assessment & Plan (08/07/2022 3:08 PM CDT): Physical and occupational therapy for strengthening. Maintain respiratory droplet precautions per pandemic. Vital signs every shift including oxygen saturation. Assessment & Plan (07/31/2022 11:47 AM CDT): Physical and occupational therapy for strengthening. Maintain respiratory droplet precautions per pandemic. Vital signs every shift including oxygen saturation. Assessment & Plan (07/25/2022 5:08 PM CDT): Physical and occupational therapy for strengthening Left shoulder pain 07/24/2022 Assessment & Plan (07/31/2022 11:47 AM CDT): Discussed with the nurse to give pain medication. On Tylenol 500 mg po every 6 hours as needed and Tramadol 25 mg po twice daily. Continue with Ice Hot on neck and shoulder application. Assessment & Plan (07/24/2022 2:21 PM CDT): Discussed with the nurse to give pain medication. On Tylenol 500 mg po every 6 hours as needed. Started Ice Hot on neck and shoulder application. Iron deficiency anemia 07/22/2022 Overview (07/22/2022): Ferrous sulfate patient do a CBC with diff Assessment & Plan (10/30/2022 4:54 PM CDT): Anemia generally stable from prior; no increase from 2 months ago Will continue to monitor closely, evaluate if continues to need iron supplementation Vomiting 06/17/2022 Assessment & Plan (07/16/2022 10:07 AM CDT): Intermittent vomiting noted on TF in June. - GI consulted 06/26 - recommend scheduled Zofran, reglan, n/v now resolved will trial off scheduled anti-emetics Assessment & Plan (06/26/2022 5:17 PM CDT): Per nursing over last few weeks has had intermittent vomiting. - Changed from continuous to bolus TF to see if this helped. Recurrent emesis with suspected aspiration 06/21 on bolus feeds based on suctioning tube feeds from mouth. CXR neg for PNA. Added reglan 5mg q8hrs for GERD, then DCed. D/w IR and converted G to GJ tube 06/21/22 Resumed TF via J tube 06/21 and initially tolerating. Park Worker re advanced TFlushes & spot bolus IVF to match losses. Continue Strict aspiration precautions. KUB recently NAD, no constipation. Recurrent emesis of tube feed 06/25. Verified TF via J port. Antiemetics PRN, advance as needed. CT abd/p w/o 06/[address] findings in the abdomen or pelvis. No bowel obstruction. Appropriately positioned gastrojejunostomy tube. Stranding throughout the left omentum is decreased compared to prior and likely represents resolving inflammatory surgical changes. Trace bibasilar aspiration. Afebrile, no leukocytosis. GI consulted 06/26 - recommend scheduled Zofran. If persistent vomiting vent G tube and resume J feeds at 50% 06/26 post MRI Assessment & Plan (06/25/2022 10:25 AM CDT): Per nursing over last few weeks has had intermittent vomiting. - Changed from continuous to bolus TF to see if this helped. Recurrent emesis with suspected aspiration 06/21 on bolus feeds based on suctioning tube feeds from mouth. CXR neg for PNA. Added reglan 5mg q8hrs for GERD, then DCed. D/w IR and converted G to GJ tube 06/21/22 Resumed TF via J tube 38 and initially tolerating. Park Worker re advanced TFlushes & spot bolus IVF to match losses. Continue Strict aspiration precautions. - KUBhargavi recently NAD, no constipation. Recurrent emesis of tube feed 06/25. Verified TF via J port. Antiemetics PRN, advance as needed. CT abd/p w/o 06/[address] findings in the abdomen or pelvis. No bowel obstruction. Appropriately positioned gastrojejunostomy tube. Stranding throughout the left omentum is decreased compared to prior and likely represents resolving inflammatory surgical changes. Trace bibasilar aspiration. Afebrile, no leukocytosis. Assessment & Plan (06/24/2022 5:08 PM HOG SAWYER): Per nursing over last few weeks has had intermittent vomiting. - Changed from continuous to bolus TF to see if this helped. Recurrent emesis with suspected aspiration 3/8 on bolus feeds based on suctioning tube feeds from mouth. CXR neg for PNA. Added reglan 5mg q8hrs for GERD, then DCed. D/w IR and converted G to GJ tube 06/21/22 Resumed TF via J tube 06/21 and tolerating. Park Worker re TFlushes. Continue Strict aspiration precautions. - ANIA recently NAD, no constipation. Assessment & Plan (06/23/2022 4:00 PM HOG SAWYER): Per nursing over last few weeks has had intermittent vomiting. - Started bolus TF to see if this helps. Recurrence with suspected aspiration 3/8 on bolus feeds based on suctioning tube feeds from mouth. CXR neg for PNA. Added reglan 5mg q8hrs for GERD. D/w IR and converted G to GJ tube 06/21/22 Resumed TF via J tube 8. Continue Strict aspiration precautions. - KUBhargavi recently NAD, no constipation. Assessment & Plan (06/22/2022 4:16 PM HOG SAWYER): Per nursing over last few weeks has had intermittent vomiting. - Started bolus TF to see if this helps. Rrecurrence with suspected aspiration 3/8 on bolus feeds. CXR neg for PNA. Add reglan q8hrs for GERD D/w IR and converted G to GJ tube 06/21/22 Resumed TF via J tube 06/21. Add low dose reglan for reflux 06/21. Continue Strict aspiration precautions. - Cont to observe. - KUB recently NAD. Assessment & Plan (06/21/2022 3:29 PM HOG SAWYER): Per nursing over last few weeks has had intermittent vomiting. - Started bolus TF to see if this helps. Rrecurrence with suspected aspiration 06/21 on bolus feeds. CXR neg for PNA. Add reglan q8hrs for GERD D/w IR and converted G to GJ tube 06/21/22 Resumed TF via J tube 06/21. Continue Strict aspiration precautions. - Cont to observe. - KUB recently NAD. Assessment & Plan (06/20/2022 6:17 PM HOG SAWYER): Per nursing over last few weeks has had intermittent vomiting. - Started bolus TF to see if this helps. No recurrence on bolus feeds. Strict aspiration precautions. - Cont to observe. - KUB recently NAD. UTI due to Klebsiella species 06/15/2022 Assessment & Plan (07/24/2022 2:19 PM CDT): S/p hospitalization. Patient treated for Klebsiella variicola which included ceftriaxone. Completed 14 doy course on 06/29/2022 Assessment & Plan (07/14/2022 12:14 PM CDT): Urine Cx 06/15 growing Klebsiella variicola. Sensitivities include ceftriaxone. Completed ~14d treatment course 06/29/22. Checked for urinary retention, bladder scan negative. Assessment & Plan (06/26/2022 5:15 PM CDT): UA on 06/15 with nitrates and >50 WBC. No urine cultures with MDR. Started IV ceftriaxone. Might be adding some component to the AMS, but no change noted with treatment with IV Ceftriaxone (06/15-c). Urine Cx growing Klebsiella variicola. Sensitivities include ceftriaxone. Completed 7 day course 06/22/22. Checked for urinary retention, bladder scan negative. Assessment & Plan (06/25/2022 10:21 AM CDT): UA on 3/2 with nitrates and >50 WBC. No urine cultures with MDR. Started IV ceftriaxone. Might be adding some component to the AMS, but no change noted with treatment with IV Ceftriaxone (3/2-c). Urine Cx growing Klebsiella variicola. Sensitivities include ceftriaxone. Completed 7 day course 06/22/22. Checked for urinary retention, bladder scan negative. Assessment & Plan (06/24/2022 5:06 PM HOG SAWYER): UA on 3/2 with nitrates and >50 WBC. No urine cultures with MDR. Started IV ceftriaxone. Might be adding some component to the AMS, but no change noted with treatment with IV Ceftriaxone (3/2-c). Urine Cx growing Klebsiella variicola. Sensitivities include ceftriaxone. Pt completed 7 day course 06/22/22. Checked for urinary retention, bladder scan negative. Assessment & Plan (06/23/2022 3:59 PM HOG SAWYER): UA on 3/2 with nitrates and >50 WBC. No urine cultures with MDR. Started IV ceftriaxone. Might be adding some component to the AMS, but no change noted with treatment with IV Ceftriaxone (3/2-c). Urine Cx growing Klebsiella variicola. Sensitivities include ceftriaxone. Pt completed 7 day course 06/22/22. Checked for urinary retention, bladder scan negative. Assessment & Plan (06/22/2022 4:16 PM HOG SAWYER): UA on 3/2 with nitrates and >50 WBC. No urine cultures with MDR. Started IV ceftriaxone. Might be adding some component to the AMS, but no change noted with treatment with IV Ceftriaxone (3/2-c). Pt completed 7 day course 06/22/22. Checked for urinary retention, bladder scan negative. -Urine Cx growing Klebsiella variicola. Sensitivities back. S to CTX Assessment & Plan (06/21/2022 3:31 PM HOG SAWYER): UA on 3/2 with nitrates and >50 WBC. No urine cultures with MDR. Started IV ceftriaxone. Might be adding some component to the AMS. -Ceftriaxone 3/2- completes 7 day course on 06/22/22. Check for urinary retention, bladder scan negative. -Urine Cx growing Klebsiella variicola. Sensitivities back. S to CTX Assessment & Plan (06/19/2022 10:12 PM HOG SAWYER): UA on 32 with nitrates and >50 WBC. No urine cultures with MDR. Will start him on ceftriaxone while urine culture results. Might be adding some component to the AMS. -Ceftriaxone 3/2- complete 7 day course. Check for urinary retention. -Urine Cx growing Klebsiella variicola. Sensitivities back. S to CTX Assessment & Plan (06/16/2022 12:04 PM HOG SAWYER): UA on 32 with nitrates and >50 WBC. No urine cultures with MDR. Will start him on ceftriaxone while urine culture results. Might be adding some component to the AMS. -Ceftriaxone 3/2- -Urine Cx growing Klebsiella variicola. Sensitivities pending. Assessment & Plan (06/15/2022 1:24 PM HOG SAWYER): UA on 06/15 with nitrates and >50 WBC. No urine cultures with MDR. Will start him on ceftriaxone while urine culture results. -Ceftriaxone 3/2- Anemia 05/26/2022 Assessment & Plan (12/20/2022 1:08 PM CDT): Stable, mildly improving since hospitalization; recheck CBC today to look for continued improvement Assessment & Plan (07/22/2022 12:25 PM CDT): Patient is on ferrous sulfate CBC with diff Assessment & Plan (07/17/2022 11:51 AM CDT): Normocytic. AOCD pattern on labs. Likely from GIN, serious illness, frequent blood draws, etc. -Intermittently requiring PRBC last 07/05/22. F/u Hb stable in 7's-9's, limit routine labs. No evidence of hematuria, melena or hematochezia. CT abd/p w/o 06/25 unremarkable. Tsat 15% (07/04/22)-- IV Fe x1 dose (07/05) Assessment & Plan (06/26/2022 5:11 PM CDT): Normocytic. AOCD pattern on labs. Likely from GIN, serious illness, frequent blood draws, etc. -Intermittently requiring PRBC last 06/03/22. F/u Hb stable in 7's, limit routine labs. No evidence of hematuria, melena or hematochezia. CT abd/p w/o 06/25 unremarkable. Assessment & Plan (06/25/2022 10:19 AM CDT): Normocytic. AOCD pattern on labs. Likely from GIN, serious illness, frequent blood draws, etc. -Intermittently requiring PRBC last 06/03/22. F/u Hb 7.8, limit routine labs. No evidence of hematuria, melena or hematochezia. CT abd/p w/o 06/25 unremarkable. Assessment & Plan (06/24/2022 5:03 PM HOG SAWYER): Normocytic. AOCD pattern on labs. Likely from GIN, serious illness, frequent blood draws, etc. -Intermittently requiring PRBC last 06/03/22. F/u Hb 7.8, limit routine labs. No evidence of hematuria, melena or hematochezia. Assessment & Plan (06/23/2022 3:48 PM HOG SAWYER): Normocytic. AOCD pattern on labs. Likely from GIN, serious illness, frequent blood draws, etc. -Intermittently requiring PRBC last 06/03/22. F/u Hb 7.3, limit routine labs. No evidence of hematuria, melena or hematochezia. Assessment & Plan (06/22/2022 4:08 PM HOG SAWYER): Normocytic. AOCD pattern on labs. Likely from GIN, serious illness, frequent blood draws, etc. -Intermittently requiring PRBC last 06/03/22. F/u Hb 7.3, limit routine labs. No evidence of hematuria, melena or hematochezia. Assessment & Plan (06/21/2022 3:23 PM HOG SAWYER): Normocytic. AOCD pattern on labs. Likely from GIN, serious illness, frequent blood draws, etc. -Intermittently requiring PRBC last 06/03/22. F/u Hb 7.5, limit routine labs. Assessment & Plan (06/20/2022 6:09 PM HOG SAWYER): Normocytic. AOCD pattern on labs. Likely from GIN, serious illness, frequent blood draws, etc. -Intermittently requiring PRBC last 06/03/21. F/u Hb 7.5, limit routine labs. Assessment & Plan (06/16/2022 11:57 AM HOG SAWYER): Normocytic. AOCD pattern on labs. Likely from GIN, serious illness, frequent blood draws, etc. -Intermittently requiring PRBC last 06/03/21. Assessment & Plan (06/15/2022 1:22 PM HOG SAWYER): Normocytic. AOCD pattern on labs. Likely from GIN, serious illness, frequent blood draws, etc. -Intermittently requiring PRBC last 06/03/21. Assessment & Plan (06/14/2022 2:26 PM HOG SAWYER): Normocytic. AOCD pattern on labs. Likely from GIN, serious illness, frequent blood draws, etc. -Intermittently requiring PRBC last 06/03/21. F/u Hb 8.1. Assessment & Plan (06/13/2022 4:10 PM HOG SAWYER): Normocytic. AOCD pattern on labs. Likely from GIN, serious illness, frequent blood draws, etc. -Intermittently requiring PRBC last 06/03/21. F/u Hb 8.1. Assessment & Plan (06/12/2022 6:17 PM HOG SAWYER): Normocytic. AOCD pattern on labs. Likely from GIN, serious illness, frequent blood draws, etc. - intermittently requiring PRBC last 06/03/21. F/u Hb 8.1. Billing statement. I have reviewed current Hb 8.5, remains stable post recent transfusion with HD stability. Plan to limit blood draws, monitor serial counts for additional needs. Transfuse PRN Hb<7. Assessment & Plan (06/11/2022 4:33 PM HOG SAWYER): Normocytic. AOCD pattern on labs. Likely from GIN, serious illness, frequent blood draws, etc. - intermittently requiring PRBC last 06/03/21. F/u Hb 8.1. Billing statement. I have reviewed current Hb 8.5, remains stable post recent transfusion with HD stability. Plan to limit blood draws, monitor serial counts for additional needs. Transfuse PRN Hb<7 Assessment & Plan (06/10/2022 3:23 PM HOG SAWYER): Normocytic. AOCD pattern on labs. Likely from GIN, serious illness, frequent blood draws, etc. - intermittently requiring PRBC last 06/03/21. F/u Hb 8.1. Billing statement. I have reviewed current Hb 8.1, remains stable post recent transfusion with HD stability. Plan to limit blood draws, monitor serial counts for additional needs. Transfuse PRN Hb<7 Assessment & Plan (06/10/2022 9:24 AM HOG SAWYER): Normocytic. AOCD pattern on labs. Likely from GIN, serious illness, frequent blood draws, etc. - intermittently requiring PRBC last 06/03/21. F/u Hb 8.1. Billing statement. I have reviewed current Hb 8.1, remains stable post recent transfusion with HD stability. Plan to limit blood draws, monitor serial counts for additional needs. Transfuse PRN Hb<7 Assessment & Plan (06/08/2022 4:02 PM HOG SAWYER): Normocytic. AOCD pattern on labs. Likely from GIN, serious illness, frequent blood draws, etc. - intermittently requiring PRBC last 06/03/21. F/u Hb 8.1. Billing statement. I have reviewed current Hb 8.1, remains stable post recent transfusion with HD stability. Plan to limit blood draws, monitor serial counts for additional needs. Assessment & Plan (06/07/2022 11:00 AM HOG SAWYER): Normocytic. AOCD pattern on labs. Likely from GIN, serious illness, frequent blood draws, etc. - intermittently requiring PRBC last 06/03/21 Billing statement. I have reviewed current Hb 8.1, remains stable post recent transfusion with HD stability. Plan to limit blood draws, monitor serial counts for additional needs. Assessment & Plan (06/06/2022 6:31 PM HOG SAWYER): Normocytic. 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 - intermittently requiring PRBC last 06/03 Billing statement. I have reviewed current Hb 8.1, remains stable post transfusion. Plan to limit blood draws, monitor serial counts. Assessment & Plan (06/05/2022 2:00 PM HOG SAWYER): - Normocytic. 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 - intermittently requiring PRBC last 06/03 Assessment & Plan (06/04/2022 11:09 AM HOG SAWYER): - Normocytic. 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 - f/u CBC today p 1 unit PRBC 06/03 Assessment & Plan (06/03/2022 2:57 PM HOG SAWYER): - Normocytic. 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 - requiring 1 unit PRBC today for slow drop likely AOCD and lab draws Assessment & Plan (06/02/2022 2:26 PM HOG SAWYER): - Normocytic. 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 - cont to monitor H/H, transfuse for Hb < 7, remains relatively stable but at borderline of requiring PRBC Assessment & Plan (06/01/2022 2:18 PM [facility]OG [facility]WYER): - Normocytic. 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 - cont to monitor H/H, transfuse for Hb < 7, remains relatively stable but at borderline of requiring PRBC Assessment & Plan (05/31/2022 2:57 PM [facility]OG SAWYER): - Normocytic. 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 - cont to monitor H/H, transfuse for Hb < 7 Assessment & Plan (05/30/2022 2:03 PM [facility]OG [facility]WYER): - Normocytic. 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 - cont to monitor H/H, transfuse for Hb < 7 Assessment & Plan (05/29/2022 3:13 PM [facility]OG SAWYER): Normocytic. B12, folate normal. Likely from GIN, serious illness, frequent blood draws, etc. Drop over last 24 hrs likely dilutional due to IVF. No e/o bleeding - cont to monitor H/H, transfuse for Hb < 7 - ferritin high, c/w anemia of chronic dz Assessment & Plan (05/28/2022 1:53 PM [facility]OG SAWYER): Normocytic. B12, folate normal. Likely from GIN, serious illness, frequent blood draws, etc. Drop over last 24 hrs likely dilutional due to IVF. No e/o bleeding - cont to monitor H/H, transfuse for Hb < 7 - ferritin high, c/w anemia of chronic dz Assessment & Plan (05/27/2022 3:53 PM [facility]OG SAWYER): Normocytic. B12, folate normal. Likely from GIN, serious illness, frequent blood draws, etc. Drop over last 24 hrs likely dilutional due to IVF. No e/o bleeding - cont to monitor H/H, transfuse for Hb < 7 - ferritin high, c/w anemia of chronic dz Assessment & Plan (05/26/2022 1:22 PM [facility]OG SAWYER): Normocytic. B12, folate normal. Likely from GIN, serious illness, frequent blood draws, etc. Drop over last 24 hrs likely dilutional due to IVF. No e/o bleeding - cont to monitor H/H, transfuse for Hb < 7 - check iron profile, ferritin Hypercalcemia 05/25/2022 Assessment & Plan (07/14/2022 12:13 PM CDT): Normocalcemic on arrival. Uncorrected Ca as high as 13s this admission. Vit D, PTH are WNL. 1,25 Vit D low. Likely 2/2 renal dysfunction. Now resolved after denosumab on 06/20. Assessment & Plan (06/26/2022 5:15 PM CDT): Normocalcemic on arrival. Uncorrected Ca as high as 13s this admission. Vit D, PTH are WNL. 1,25 Vit D low. No evidence of malignancy on imaging; trended up as renal function worsened. Etiology not completely clear but overall workup most c/f secondary hyperparathyroidism in s/o renal failure vs immobility, though hasn't fully improved as renal failure has improved (would expect low PTH if it was all just immobility), rest of workup has been negative (low vit D levels, neg immunofix on SPEP/UPEP) -Apparently can get denosumab but would need DIRECTOR OF EPIDEMIOLOGY approval. Appreciate nephrology help sensipar not an option. -Very clearly related to renal fxn- started rising after HD discontinued. Consult nephrology tomorrow regarding crushing sensipar given literature that suggest it can be done. -Has already had SPEP/UPEP -Manage immobility contribution by mobilize in bed given current confusion, appreciate nursing input on getting him further mobilized safely. Ideally OOB daily to chair initially quite hampered by persistent safety concerns with agitated behavior. Daily trials pending level of agitation. -S/p spot IV NS to help with dehydration associated with hypercalcemia -Obtained iCa and elevated 5.98 off saline, renal input greatly appreciated. Spoke with pharmacy regarding inpt denosumab approval and Denosumab 60mg SQ x1 given on 06/20. Monitor response, tx hypernatremia. Repeat iCa slightly improved, serum calcium normalized with marked improvement in mental status. Assessment & Plan (06/25/2022 10:21 AM CDT): Normocalcemic on arrival. Uncorrected Ca as high as 13s this admission. Vit D, PTH are WNL. 1,25 Vit D low. No evidence of malignancy on imaging; trended up as renal function worsened. Etiology not completely clear but overall workup most c/f secondary hyperparathyroidism in s/o renal failure vs immobility, though hasn't fully improved as renal failure has improved (would expect low PTH if it was all just immobility), rest of workup has been negative (low vit D levels, neg immunofix on SPEP/UPEP) -Apparently can get denosumab but would need DIRECTOR OF EPIDEMIOLOGY approval. Appreciate nephrology help sensipar not an option. -Very clearly related to renal fxn- started rising after HD discontinued. Consult nephrology tomorrow regarding crushing sensipar given literature that suggest it can be done. -Has already had SPEP/UPEP -Manage immobility contribution by mobilize in bed given current confusion, appreciate nursing input on getting him further mobilized safely. Ideally OOB daily to chair hampered by persistent safety concerns with agitated behavior. Daily trials pending level of agitation. -S/p spot IV NS to help with dehydration associated with hypercalcemia -Obtained iCa and elevated 5.98 off saline, renal input greatly appreciated. Spoke with pharmacy regarding inpt denosumab approval and Denosumab 60mg SQ x1 given on 06/20. Monitor response, tx hypernatremia. Repeat iCa slightly improved. No change in mental status. Assessment & Plan (06/24/2022 5:06 PM [facility]OG SAWYER): Normocalcemic on arrival. Uncorrected Ca as high as 13s this admission. Vit D, PTH are WNL. 1,25 Vit D low. No evidence of malignancy on imaging; trended up as renal function worsened. Etiology not completely clear but overall workup most c/f secondary hyperparathyroidism in s/o renal failure vs immobility, though hasn't fully improved as renal failure has improved (would expect low PTH if it was all just immobility), rest of workup has been negative (low vit D levels, neg immunofix on SPEP/UPEP) -Apparently can get denosumab but would need DIRECTOR OF EPIDEMIOLOGY approval. Appreciate nephrology help sensipar not an option. -Very clearly related to renal fxn- started rising after HD discontinued. Consult nephrology tomorrow regarding crushing sensipar given literature that suggest it can be done. -Has already had SPEP/UPEP -Manage immobility contribution by mobilize in bed given current confusion, appreciate nursing input on getting him further mobilized safely. Ideally OOB daily to chair hampered by persistent safety concerns with agitated behavior. Daily trials pending level of agitation. -S/p spot IV NS to help with dehydration associated with hypercalcemia -Obtained iCa and elevated 5.98 off saline, renal input greatly appreciated. Spoke with pharmacy regarding inpt denosumab approval and Denosumab 60mg SQ x1 given on 06/20. Monitor response, tx hypernatremia. Repeat iCa unchanged 06/23. Repeat in am. Assessment & Plan (06/23/2022 3:58 PM HOG SAWYER): Normocalcemic on arrival. Uncorrected Ca as high as 13s this admission. Vit D, PTH are WNL. 1,25 Vit D low. No evidence of malignancy on imaging; trended up as renal function worsened. Etiology not completely clear but overall workup most c/f secondary hyperparathyroidism in s/o renal failure vs immobility, though hasn't fully improved as renal failure has improved (would expect low PTH if it was all just immobility), rest of workup has been negative (low vit D levels, neg immunofix on SPEP/UPEP) -Apparently can get denosumab but would need DIRECTOR OF EPIDEMIOLOGY approval. Appreciate nephrology help sensipar not an option. -Very clearly related to renal fxn- started rising after HD discontinued. Consult nephrology tomorrow regarding crushing sensipar given literature that suggest it can be done. -Has already had SPEP/UPEP -Manage immobility contribution by mobilize in bed given current confusion, appreciate nursing input on getting him further mobilized safely. Ideally OOB daily to chair hampered by persistent safety concerns with agitated behavior. -S/p spot IV NS to help with dehydration associated with hypercalcemia -Obtained iCa and elevated 5.98 off saline, renal input greatly appreciated. Spoke with pharmacy regarding inpt denosumab approval and Denosumab 60mg SQ x1 given on 06/20. Monitor response, tx hypernatremia. Repeat iCa unchanged 06/23. Assessment & Plan (06/22/2022 4:15 PM HOG [facility]WYER): Normocalcemic on arrival. Uncorrected Ca as high as 13s this admission. Vit D, PTH are WNL. 1,25 Vit D low. No evidence of malignancy on imaging; trended up as renal function worsened. Etiology not completely clear but overall workup most c/f secondary hyperparathyroidism in s/o renal failure vs immobility, though hasn't fully improved as renal failure has improved (would expect low PTH if it was all just immobility), rest of workup has been negative (low vit D levels, neg immunofix on SPEP/UPEP) -Apparently can get denosumab but would need DIRECTOR OF EPIDEMIOLOGY approval. Appreciate nephrology help sensipar not an option. -Very clearly related to renal fxn- started rising after HD discontinued. Consult nephrology tomorrow regarding crushing sensipar given literature that suggest it can be done. -Has already had SPEP/UPEP -Manage immobility contribution by mobilize in bed given current confusion, appreciate nursing input on getting him further mobilized safely. Ideally OOB daily to chair, but persistent safety concerns with agitated behavior. -S/p spot IV NS to help with dehydration associated with hypercalcemia -Obtained iCa and elevated 5.98 off saline, renal input greatly appreciated. Spoke with pharmacy regarding inpt denosumab approval and Denosumab 60mg SQ x1 given on 06/20. Monitor response, tx hypernatremia. Repeat iCa. Assessment & Plan (06/21/2022 3:27 PM HOG SAWYER): Normocalcemic on arrival. Uncorrected Ca as high as 13s this admission. Vit D, PTH are WNL. 1,25 Vit D low. No evidence of malignancy on imaging; trended up as renal function worsened. Etiology not completely clear but overall workup most c/f secondary hyperparathyroidism in s/o renal failure vs immobility, though hasn't fully improved as renal failure has improved (would expect low PTH if it was all just immobility), rest of workup has been negative (low vit D levels, neg immunofix on SPEP/UPEP) -Apparently can get denosumab but would need DIRECTOR OF EPIDEMIOLOGY approval. Appreciate nephrology help sensipar not an option. -Very clearly related to renal fxn- started rising after HD discontinued. Consult nephrology tomorrow regarding crushing sensipar given literature that suggest it can be done. -Has already had SPEP/UPEP -Manage immobility contribution by mobilize in bed given current confusion, appreciate nursing input on getting him further mobilized safely. OOB daily to chair. -S/p spot IV NS to help with dehydration associated with hypercalcemia -Obtained iCa and elevated 5.98 off saline, renal input greatly appreciated. Spoke with pharmacy regarding inpt denosumab approval and Denosumab 60mg SQ x1 given on 06/20. Monitor response. Assessment & Plan (06/20/2022 6:15 PM HOG SAWYER): Normocalcemic on arrival. Uncorrected Ca as high as 13s this admission. Vit D, PTH are WNL. 1,25 Vit D low. No evidence of malignancy on imaging; trended up as renal function worsened. Etiology not completely clear but overall workup most c/f secondary hyperparathyroidism in s/o renal failure vs immobility, though hasn't fully improved as renal failure has improved (would expect low PTH if it was all just immobility), rest of workup has been negative (low vit D levels, neg immunofix on SPEP/UPEP) -Apparently can get denosumab but would need DIRECTOR OF EPIDEMIOLOGY approval. Appreciate nephrology help sensipar not an option. -Very clearly related to renal fxn- started rising after HD discontinued. Consult nephrology tomorrow regarding crushing sensipar given literature that suggest it can be done. -Has already had SPEP/UPEP -Manage immobility contribution by mobilize in bed given current confusion- high fowlers- will need nursing input on getting him further mobilized safely. -S/p spot IV NS to help with dehydration associated with hypercalcemia -Obtained iCa and elevated 5.98 off saline, renal input greatly appreciated. Spoke with pharmacy regarding inpt denosumab approval. Assessment & Plan (06/16/2022 11:57 AM HOG SAWYER): Normocalcemic on arrival. Uncorrected Ca as high as 13s this admission. Vit D, PTH are WNL. 1,25 Vit D low. No evidence of malignancy on imaging; trended up as renal function worsened. Etiology not completely clear but overall workup most c/f secondary hyperparathyroidism in s/o renal failure vs immobility, though hasn't fully improved as renal failure has improved (would expect low PTH if it was all just immobility), rest of workup has been negative (low vit D levels, neg immunofix on SPEP/UPEP) -May be contributing to encephalopathy and unfortunately can't get bisphosphonate (renal failure) or denosumab (not on hospital formulary), also considered sensipar but can't be crushed via tube so unless passes swallow eval or renal failure improves may be stuck with low level hyperCa. Recommend continued NPO by [facility] [place] 06/08. - Continue water flushes per tube (300 q4). - Ca++ increased today: 12.1 (11.9). - if Cr continues to downtrend may be able to consider bisphosphonate. 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 - Cosyntropin test within normal limits, AI ruled out. - 1L of IVF today Assessment & Plan (06/15/2022 1:22 PM HOG SAWYER): Normocalcemic on arrival. Uncorrected Ca as high as 13s this admission. Vit D, PTH are WNL. 1,25 Vit D low. No evidence of malignancy on imaging; trended up as renal function worsened. Etiology not completely clear but overall workup most c/f secondary hyperparathyroidism in s/o renal failure vs immobility, though hasn't fully improved as renal failure has improved (would expect low PTH if it was all just immobility), rest of workup has been negative (low vit D levels, neg immunofix on SPEP/UPEP) -May be contributing to encephalopathy and unfortunately can't get bisphosphonate (renal failure) or denosumab (not on hospital formulary), also considered sensipar but can't be crushed via tube so unless passes swallow eval or renal failure improves may be stuck with low level hyperCa. Recommend continued NPO by [facility] [place] 06/08. - Continue water flushes per tube (300 q4). - Ca++ increased today: 12.1 (11.9). - if Cr continues to downtrend may be able to consider bisphosphonate. 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 - Cosyntropin test within normal limits, AI ruled out. Assessment & Plan (06/14/2022 2:26 PM HOG SAWYER): Normocalcemic on arrival. Uncorrected Ca as high as 13s this admission. Vit D, PTH are WNL. 1,25 Vit D low. No evidence of malignancy on imaging; trended up as renal function worsened. Etiology not completely clear but overall workup most c/f secondary hyperparathyroidism in s/o renal failure though hasn't fully improved as renal failure has improved (would expect low PTH if it was all just immobility), rest of workup has been negative (low vit D levels, neg immunofix on SPEP/UPEP) -May be contributing to encephalopathy and unfortunately can't get bisphosphonate (renal failure) or denosumab (not on hospital formulary), also considered sensipar but can't be crushed via tube so unless passes swallow eval or renal failure improves may be stuck with low level hyperCa. Recommend continued NPO by [facility] [place] 06/08. - Continue water flushes per tube (300 q4). - Ca++ increased today: 12.1 (11.9). - if Cr continues to downtrend may be able to consider bisphosphonate. 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 Recommending ordering cosyntropin to rule out adrenal insufficiency. Assessment & Plan (06/13/2022 4:03 PM HOG SAWYER): Normocalcemic on arrival. Uncorrected Ca as high as 13s this admission. Vit D, PTH are WNL. 1,25 Vit D low. No evidence of malignancy on imaging; trended up as renal function worsened. Etiology not completely clear but overall workup most c/f secondary hyperparathyroidism in s/o renal failure though hasn't fully improved as renal failure has improved (would expect low PTH if it was all just immobility), rest of workup has been negative (low vit D levels, neg immunofix on SPEP/UPEP) -May be contributing to encephalopathy and unfortunately can't get bisphosphonate (renal failure) or denosumab (not on hospital formulary), also considered sensipar but can't be crushed via tube so unless passes swallow eval or renal failure improves may be stuck with low level hyperCa. Recommend continued NPO by [facility] [place] 06/08. - Continue water flushes per tube (300 q4). - Ca++ decreased today: 11.9 (12.8). - if Cr continues to downtrend may be able to consider bisphosphonate. - Continue to monitor Assessment & Plan (06/12/2022 6:20 PM HOG SAWYER): Normocalcemic on arrival. Uncorrected Ca as high as 13s this admission. Vit D, PTH are WNL. 1,25 Vit D low. No evidence of malignancy on imaging; trended up as renal function worsened. Etiology not completely clear but overall workup most c/f secondary hyperparathyroidism in s/o renal failure though hasn't fully improved as renal failure has improved (would expect low PTH if it was all just immobility), rest of workup has been negative (low vit D levels, neg immunofix on SPEP/UPEP) - may be contributing to encephalopathy and unfortunately can't get bisphosphonate (renal failure) or denosumab (not on hospital formulary), also considered sensipar but can't be crushed via tube so unless passes swallow eval or renal failure improves may be stuck with low level hyperCa. Recommend continued NPO by [facility] 06/08. - cont water per tube (300 q4 is relatively high volume already), Ca remains stable but high despite increased water per tube; still NPO so can't take in sufficient po water to assist in treatment - if Cr continues to downtrend may be able to consider bisphosphonate which may help as CrCl now just under 30 (uptodate recommends GFR >35) or if passes speech eval to take some po can consider cinacalcet 30 bid, but can't be crushed so can't start now Billing statement. I have personally reviewed hypercalcemia trends and f/u lab - with stabilization of renal dysfunction. Plan NPO, on tube feeds. Plan OP consideration of sensipar 30mg PO daily if able to tolerate PO and to continue hydration per tube, serial calcium monitoring, & avoid supplementation. Assessment & Plan (06/11/2022 4:35 PM HOG SAWYER): Normocalcemic on arrival. Uncorrected Ca as high as 13s this admission. Vit D, PTH are WNL. 1,25 Vit D low. No evidence of malignancy on imaging; trended up as renal function worsened. Etiology not completely clear but overall workup most c/f secondary hyperparathyroidism in s/o renal failure though hasn't fully improved as renal failure has improved (would expect low PTH if it was all just immobility), rest of workup has been negative (low vit D levels, neg immunofix on SPEP/UPEP) - may be contributing to encephalopathy and unfortunately can't get bisphosphonate (renal failure) or denosumab (not on hospital formulary), also considered sensipar but can't be crushed via tube so unless passes swallow eval or renal failure improves may be stuck with low level hyperCa. Recommend continued NPO by [facility] [place] 06/08. - cont water per tube (300 q4 is relatively high volume already), Ca remains stable but high despite increased water per tube; still NPO so can't take in sufficient po water to assist in treatment - if Cr continues to downtrend may be able to consider bisphosphonate which may help as CrCl now just under 30 (uptodate recommends GFR >35) or if passes speech eval to take some po can consider cinacalcet 30 bid, but can't be crushed so can't start now Billing statement. I have personally reviewed hypercalcemia trends and f/u lab - with stabilization of renal dysfunction. Plan NPO, on tube feeds. Plan OP consideration of sensipar 30mg PO daily and to continue hydration per tube, serial calcium monitoring, & avoid supplementation. Assessment & Plan (06/10/2022 3:28 PM HOG SAWYER): Normocalcemic on arrival. Uncorrected Ca as high as 13s this admission. Vit D, PTH are WNL. 1,25 Vit D low. No evidence of malignancy on imaging; trended up as renal function worsened. Etiology not completely clear but overall workup most c/f secondary hyperparathyroidism in s/o renal failure though hasn't fully improved as renal failure has improved (would expect low PTH if it was all just immobility), rest of workup has been negative (low vit D levels, neg immunofix on SPEP/UPEP) - may be contributing to encephalopathy and unfortunately can't get bisphosphonate (renal failure) or denosumab (not on hospital formulary), also considered sensipar but can't be crushed via tube so unless passes swallow eval or renal failure improves may be stuck with low level hyperCa. Recommend continued NPO by [facility] [place] 06/08. - cont water per tube (300 q4 is relatively high volume already), Ca remains stable but high despite increased water per tube; still NPO so can't take in sufficient po water to assist in treatment - if Cr continues to downtrend may be able to consider bisphosphonate which may help as CrCl now just under 30 (uptodate recommends GFR >35) or if passes speech eval to take some po can consider cinacalcet 30 bid, but can't be crushed so can't start now Billing statement. I have personally reviewed hypercalcemia trends and f/u lab 10-11 with stabilization of renal dysfunction. Plan NPO, on tube feeds. Plan OP consideration of sensipar 30mg PO daily and to continue hydration per tube, serial calcium monitoring, & avoid supplementation. Assessment & Plan (06/10/2022 9:27 AM HOG SAWYER): Normocalcemic on arrival. Uncorrected Ca as high as 13s this admission. Vit D, PTH are WNL. 1,25 Vit D low. 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 Advanced tolerance of PO by [facility] [place] 06/08. - cont water per tube (300 q4 is relatively high volume already), Ca remains stable but high despite increased water per tube; still NPO so can't take in sufficient po water to assist in treatment - if Cr continues to downtrend may be able to consider bisphosphonate which may help as CrCl now just under 30 (uptodate recommends GFR >35) or if passes speech eval to take some po can consider cinacalcet 30 bid, but can't be crushed so can't start now Billing statement. I have reviewed hypercalcemia trends and f/u lab 10-11 with stabilization. Plan OP consideration of sensipar 30mg PO daily and to continue hydration per tube, serial calcium monitoring, & avoid supplementation. Assessment & Plan (06/08/2022 4:09 PM HOG SAWYER): Normocalcemic on arrival. Uncorrected Ca as high as 13s this admission. Vit D, PTH are WNL. 1,25 Vit D low. 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 Advanced tolerance of PO by [facility] [place] 06/08. Start sensipar and monitor response. - cont water per tube (300 q4 is relatively high volume already), Ca remains stable but high despite increased water per tube; still NPO so can't take in sufficient po water to assist in treatment - if Cr continues to downtrend may be able to consider bisphosphonate which may help as CrCl now just under 30 (uptodate recommends GFR >35) or if passes speech eval to take some po can consider cinacalcet 30 bid, but can't be crushed so can't start now Billing statement. I have reviewed hypercalcemia trends and f/u lab - with stabilization. Plan sensipar 30mg PO daily and to continue hydration per tube, serial calcium monitoring, & avoid supplementation. Assessment & Plan (06/07/2022 11:04 AM HOG [facility]WYER): Normocalcemic on arrival. Uncorrected Ca as high as 13s this admission. Vit D, PTH are WNL. 1,25 Vit D low. No evidence of malignancy on imaging; trended up as renal function worsened - Etiology not completely clear but overall workup most c/f hyperPTH in s/o renal failure though hasn't fully improved as renal failure has improved (would expect low PTH if it was all just immobility), rest of workup has been negative (low vit D levels, neg immunofix on SPEP/UPEP) - may be contributing to encephalopathy and unfortunately can't get bisphosphonate (renal failure) or denosumab (not on hospital formulary), also considered sensipar but can't be crushed via tube so unless passes swallow eval or renal failure improves may be stuck with low level hyperCa - cont water per tube (300 q4 is relatively high volume already), Ca remains stable but high despite increased water per tube; still NPO so can't take in sufficient po water to assist in treatment - if Cr continues to downtrend may be able to consider bisphosphonate which may help as CrCl now just under 30 (uptodate recommends GFR >35) or if passes speech eval to take some po can consider cinacalcet 30 bid, but can't be crushed so can't start now Billing statement. I have reviewed hypercalcemia trends and f/u lab 10- with stabilization. Plan to continue hydration per tube, serial calcium monitoring, & avoid supplementation. Assessment & Plan (06/06/2022 6:40 PM HOG SAWYER): Normocalcemic on arrival. Uncorrected Ca as high as 13s this admission. Vit D, PTH are WNL. 1,25 Vit D low. No evidence of malignancy on imaging; trended up as renal function worsened - Etiology not completely clear but overall workup most c/f hyperPTH in s/o renal failure though hasn't fully improved as renal failure has improved (would expect low PTH if it was all just immobility), rest of workup has been negative (low vit D levels, neg immunofix on SPEP/UPEP) - may be contributing to encephalopathy and unfortunately can't get bisphosphonate (renal failure) or denosumab (not on hospital formulary), also considered sensipar but can't be crushed via tube so unless passes swallow eval or renal failure improves may be stuck with low level hyperCa - cont water per tube (300 q4 is relatively high volume already), Ca remains stable but high despite increased water per tube; still NPO so can't take in sufficient po water to assist in treatment - if Cr continues to downtrend may be able to consider bisphosphonate which may help as CrCl now just under 30 (uptodate recommends GFR >35) or if passes speech eval to take some po can consider cinacalcet 30 bid, but can't be crushed so can't start now Billing statement. I have reviewed hypercalcemia trends and f/u lab 10.6 with some improvement. Plan to continue hydration per tube, serial monitoring, avoid supplementation. Assessment & Plan (06/05/2022 1:59 PM HOG SAWYER): - Normocalcemic on arrival. Uncorrected Ca as high as 13s this admission. Vit D, PTH are WNL. 1,25 Vit D low. No evidence of malignancy on imaging; trended up as renal function worsened - Etiology not completely clear but overall workup most c/f hyperPTH in s/o renal failure though hasn't fully improved as renal failure has improved (would expect low PTH if it was all just immobility), rest of workup has been negative (low vit D levels, neg immunofix on SPEP/UPEP) - may be contributing to encephalopathy and unfortunately can't get bisphosphonate (renal failure) or denosumab (not on hospital formulary), also considered sensipar but can't be crushed via tube so unless passes swallow eval or renal failure improves may be stuck with low level hyperCa - cont water per tube (300 q4 is relatively high volume already), Ca remains stable but high despite increased water per tube; still NPO so can't take in sufficient po water to assist in treatment - if Cr continues to downtrend may be able to consider bisphosphonate which may help as CrCl now just under 30 (uptodate recommends GFR >35) or if passes speech eval to take some po can consider cinacalcet 30 bid, but can't be crushed so can't start now Assessment & Plan (06/04/2022 11:09 AM HOG SAWYER): - Normocalcemic on arrival. Uncorrected Ca as high as 13s this admission. Vit D, PTH are WNL. 1,25 Vit D low. No evidence of malignancy on imaging - Likely due to immobility +/- volume status, though PTH is unusual and may have some mild Hyper PTH effect > will repeat PTH - SPEP/UPEP negative on immunofixation - may be contributing to encephalopathy and unfortunately can't get bisphosphonate (renal failure) or denosumab (not on hospital formulary) - cont water per tube, Ca remains stable but high despite increased water per tube; still NPO so can't take in sufficient po water to assist in treatment; will check repeat PTH and Ca+2; dont' have much more room on [facility] as already getting 300 q4 but if cont to rise will need to consider it - if Cr continues to downtrend may be able to consider bisphosphonate which may help as CrCl now just under 30 (uptodate recommends GFR >35); if can't and PTH remains normal/high suggestive of primary HyperPTH then cinacalcet 30 bid could be considered Assessment & Plan (06/03/2022 2:56 PM HOG SAWYER): - Normocalcemic on arrival. Uncorrected Ca as high as 13s this admission. Vit D, PTH are WNL. 1,25 Vit D low. No evidence of malignancy on imaging - Likely due to immobility +/- volume status - SPEP/UPEP negative on immunofixation - may be contributing to encephalopathy and unfortunately can't get bisphosphonate (renal failure) or denosumab (not on hospital formulary) - cont water per tube > uptitrate further to 300 q4 as Ca still 11.4 Assessment & Plan (06/02/2022 2:25 PM HOG SAWYER): - Normocalcemic on arrival. Uncorrected Ca as high as 13s this admission. Vit D, PTH are WNL. 1,25 Vit D low. No evidence of malignancy on imaging - Likely due to immobility +/- volume status - SPEP/UPEP negative on immunofixation - may be contributing to encephalopathy and unfortunately can't get bisphosphonate (renal failure) or denosumab (not on hospital formulary) - cont water per tube > uptitrate from 200 to 250 q4, Ca cont to slowly improve, hold on resuming IVF Assessment & Plan (06/01/2022 2:18 PM HOG SAWYER): - Normocalcemic on arrival. Uncorrected Ca as high as 13s this admission. Vit D, PTH are WNL. 1,25 Vit D low. No evidence of malignancy on imaging - Likely due to immobility +/- volume status - SPEP/UPEP negative on immunofixation - may be contributing to encephalopathy and unfortunately can't get bisphosphonate (renal failure) or denosumab (not on hospital formulary) - cont water per tube, Ca cont to slowly improve, will stop IVF today and monitor Ca w/out IVF to ensure stable/improving prior to d/c Assessment & Plan (05/31/2022 2:57 PM HOG [facility]WYER): - Normocalcemic on arrival. Uncorrected Ca as high as 13s this admission. Vit D, PTH are WNL. 1,25 Vit D low. No evidence of malignancy on imaging - Likely due to immobility +/- volume status - SPEP/UPEP negative on immunofixation - may be contributing to encephalopathy and unfortunately can't get bisphosphonate (renal failure) or denosumab (not on hospital formulary) - cont water per tube, on 75/hr IVF and will need to d/c prior to transfer to SNF; repeat Ca level tonight and will cont to down titrate the IVF if Ca stable/downtrending Assessment & Plan (05/30/2022 2:01 PM HOG SAWYER): - Normocalcemic on arrival. Uncorrected Ca as high as 13s this admission. Vit D, PTH are WNL. 1,25 Vit D low. No evidence of malignancy on imaging - Likely due to immobility +/- volume status - SPEP/UPEP negative on immunofixation - likely contributing to encephalopathy and unfortunately can't get bisphosphonate (renal failure) or denosumab (not on hospital formulary) - received 1 dose of calcitonin earlier this hospitalization; consider given additional doses if calcium worsens, though this would only have short-term effect - cont water per tube, on 75/hr IVF and will need to d/c prior to transfer to SNF; will reduce IVF to 50/hr today and monitor Ca level - check daily BMP - continues to slowly improve Assessment & Plan (05/29/2022 3:13 PM [facility]OG [facility]WYER): - Normocalcemic on arrival. Uncorrected Ca as high as 13s this admission. Vit D, PTH are WNL. 1,25 Vit D low. No evidence of malignancy on imaging - Likely due to immobility +/- volume status - SPEP/UPEP pending - likely contributing to encephalopathy and unfortunately can't get bisphosphonate (renal failure) or denosumab (not on hospital formulary) - received 1 dose of calcitonin earlier this hospitalization; consider given additional doses if calcium worsens, though this would only have short-term effect - cont IVF and per tube water - check daily BMP - continues to slowly improve Assessment & Plan (05/28/2022 1:52 PM HOG [facility]WYER): - Normocalcemic on arrival. Uncorrected Ca as high as 13s this admission. Vit D, PTH are WNL. 1,25 Vit D low. No evidence of malignancy on imaging - Likely due to immobility +/- volume status - SPEP/UPEP pending - likely contributing to encephalopathy and unfortunately can't get bisphosphonate (renal failure) or denosumab (not on hospital formulary) - received 1 dose of calcitonin earlier this hospitalization; consider given additional doses if calcium worsens, though this would only have short-term effect - cont IVF and per tube water - check daily BMP - continues to slowly improve Assessment & Plan (05/27/2022 3:52 PM HOG [facility]WYER): - Normocalcemic on arrival. Uncorrected Ca as high as 13s this admission. Vit D, PTH are WNL. 1,25 Vit D low. No evidence of malignancy on imaging - Likely due to immobility +/- volume status - SPEP/UPEP pending - likely contributing to encephalopathy and unfortunately can't get bisphosphonate (renal failure) or denosumab (not on hospital formulary) - received 1 dose of calcitonin earlier this hospitalization; consider given additional doses if calcium worsens, though this would only have short-term effect - cont IVF and per tube water - check daily BMP - slightly improved today Assessment & Plan (05/26/2022 1:19 PM HOG [facility]WYER): - Normocalcemic on arrival. Uncorrected Ca as high as 13s this admission. Vit D, PTH are WNL. 1,25 Vit D low. No evidence of malignancy on imaging - Likely due to immobility +/- volume status - SPEP/UPEP pending - likely contributing to encephalopathy and unfortunately can't get bisphosphonate (renal failure) or denosumab (not on hospital formulary) - cont IVF and per tube water - check daily BMP, check ionized calcium in the am Hypernatremia 05/25/2022 Assessment & Plan (07/16/2022 10:06 AM CDT): - Has been hypo- and hypernatremic during course. Most recently, hypernatremic in setting of NPO after GJ pulled out, now on dysphagia diet, tolerating well, Na wnl off IVF Assessment & Plan (05/27/2022 3:53 PM HOG [facility]WYER): - Has been hypo- and hypernatremic during course Sodium now normal, cont to monitor daily BMP Assessment & Plan (05/26/2022 1:19 PM HOG [facility]WYER): - Has been hypo- and hypernatremic during course Sodium now normal, cont to monitor daily BMP Cervical stenosis of spine 09/19/2021 Overview (09/19/2021): Added automatically from request for surgery [id number] Assessment & Plan (11/10/2022 9:33 AM CDT): Patient reports decreased pain of neck; continues to have weakness as part of post surgical recovery Continue to monitor Assessment & Plan (10/30/2022 4:55 PM CDT): Patient reports improvement in pain since surgery; has improved mobility Continues to have weakness, now graduated from walker, using cane for balance, but walk short distances without cane Has low endurance, continues engage closely physical therapy twice weekly Independent at home Continue tramadol 50 mg p.r.n. for severe pain Assessment & Plan (08/16/2022 5:37 PM CDT): Stable, improving; continues to have some pain in neck, as well as lumbar spine Continue tramadol 25 mg p.r.n. for severe pain, duloxetine 30 mg daily Assessment & Plan (07/22/2022 12:17 PM CDT): Presented for elective C 3-5 ACDF and C3-7 posterior fusion on 03/17/22. Sutures out. NSurg f/u appreciated. 06/26/22: Repeat brain, spinal C/T MRIs under anesthesia 06/26 to further evaluate for structural or demyelinating process: per NSGY no new findings of concern, no new recommendations. Will need NSGY to arrange OP follow up. Surgical incision healed well. No muscular spasticity noted on LE exam. Bilateral strength intact. Patient do physical and occupational therapy for strengthening Assessment & Plan (07/17/2022 11:46 AM CDT): Presented for elective C 3-5 ACDF and C3-7 posterior fusion on 03/17/22. Sutures out. NSurg f/u appreciated. MRI C-T spine done 06/26: Postoperative changes of anterior and posterior cervical instrumented fusion; No significant cervicothoracic spinal canal stenosis or signal abnormality within the cervicothoracic spinal cord Will need NSGY clinic OP follow up at [place]; NSGY to arrange; Dr. Casas no longer at [facility] Assessment & Plan (06/26/2022 5:11 PM CDT): Presented for elective C 3-5 ACDF and C3-7 posterior fusion on 03/17/22. Sutures out. NSurg f/u appreciated. Plan MRI c/t spine as above, assess for structural or occult infection (unlikely). Touch base with neurosurgery when imaging available Elevated ESR, CRP. Will need NSGY clinic OP follow up at [place]. Surgical incision healed well. No muscular spasticity noted on LE exam. Bilateral strength intact. Therapy per neurosurgery, if able to participate, currently doesn't follow commands. Assessment & Plan (06/25/2022 10:20 AM CDT): Presented for elective C 3-5 ACDF and C3-7 posterior fusion on 03/17/22. Sutures out. NSurg f/u appreciated. Plan MRI c/t spine as above, assess for structural or occult infection (unlikely). Elevated ESR, CRP. Will need NSGY clinic OP follow up at [place]. Surgical incision healed well. No muscular spasticity noted on LE exam. Bilateral strength intact. Therapy per neurosurgery, if able to participate, currently doesn't follow commands. Assessment & Plan (06/24/2022 5:04 PM HOG [facility]WYER): Presented for elective C 3-5 ACDF and C3-7 posterior fusion on 03/17/22. Sutures out. NSurg f/u appreciated. Plan MRI c/t spine as above, assess for structural or occult infection (unlikely). Will need NSGY clinic OP follow up at [place]. Surgical incision healed well. No muscular spasticity noted on LE exam. Bilateral strength intact. Therapy per neurosurgery, if able to participate, currently doesn't follow commands. Assessment & Plan (06/23/2022 3:49 PM HOG [facility]WYER): Presented for elective C 3-5 ACDF and C3-7 posterior fusion on 03/17/22. Sutures out. NSurg f/u appreciated. Will need NSGY clinic OP follow up at [place]. Surgical incision healed well. No muscular spasticity noted on LE exam. Bilateral strength intact. Therapy per neurosurgery, if able to participate, currently doesn't follow commands. Assessment & Plan (06/22/2022 4:10 PM HOG SAWYER): Presented for elective C 3-5 ACDF and C3-7 posterior fusion on 03/17/22. Sutures out. Will need NSGY clinic OP follow up at [place]. Surgical incision healed well. No muscular spasticity noted on LE exam. Bilateral strength intact. Therapy per neurosurgery, if able to participate, currently doesn't follow commands. Assessment & Plan (06/21/2022 3:24 PM HOG SAWYER): Presented for elective C 3-5 ACDF and C3-7 posterior fusion on 03/17/22. Sutures out. Will need NSGY clinic OP follow up at [place]. Surgical incision healed well. No muscular spasticity noted on LE exam. Therapy per neurosurgery, if able to participate. Assessment & Plan (06/20/2022 6:10 PM HOG SAWYER): Presented for elective C 3-5 ACDF and C3-7 posterior fusion on 03/17/22. Sutures out. Will need NSGY clinic OP follow up at [place]. Surgical incision healed well. No muscular spasticity noted on LE exam. Therapy per neurosurgery, if able to participate. Assessment & Plan (06/16/2022 11:56 AM HOG [facility]WYER): Presented for elective C 3-5 ACDF and C3-7 posterior fusion on 03/17/22. Sutures out. Will need NSGY clinic OP follow up at [place]. Surgical incision healed well. No muscular spasticity noted on LE exam. Therapy per neurosurgery, if able to participate. Assessment & Plan (06/15/2022 1:19 PM HOG SAWYER): Presented for elective C 3-5 ACDF and C3-7 posterior fusion on 03/17/22. Sutures out. Will need NSGY clinic OP follow up at [place]. Surgical incision healed well. No muscular spasticity noted on LE exam. Therapy per neurosurgery, if able to participate. Assessment & Plan (06/14/2022 2:19 PM HOG SAWYER): Presented for elective C 3-5 ACDF and C3-7 posterior fusion on 03/17/22. Sutures out. Will need NSGY clinic OP follow up at [place]. Surgical incision healed well. No muscular spasticity noted on LE exam. Therapy per neurosurgery, if able to participate. Assessment & Plan (06/13/2022 3:58 PM HOG SAWYER): Presented for elective C 3-5 ACDF and C3-7 posterior fusion on 03/17/22. Sutures out. Will need NSGY clinic OP follow up at [place]. Surgical incision healed well. No muscular spasticity noted on LE exam. Therapy per neurosurgery, if able to participate. Assessment & Plan (06/12/2022 6:18 PM HOG SAWYER): Presented for elective C 3-5 ACDF and C3-7 posterior fusion on 03/17/22. Sutures out. Will need NSGY clinic OP follow up at [place]. Surgical incision healed well. No muscular spasticity noted on LE exam. Therapy per neurosurgery, if able to participate. Plan DC to SNF once bed available. Assessment & Plan (06/11/2022 4:33 PM HOG SAWYER): Presented for elective C 3-5 ACDF and C3-7 posterior fusion on 03/17/22. Sutures out. Will need NSGY clinic OP follow up at [place]. Surgical incision healed well. No muscular spasticity noted on exam. Therapy per neurosurgery. Plan DC to SNF once bed available. Assessment & Plan (06/10/2022 3:23 PM HOG SAWYER): Presented for elective C 3-5 ACDF and C3-7 posterior fusion on 03/17/22. Sutures out. Will need NSGY clinic OP follow up at [place]. Surgical incision healing well. No muscular spasticity noted on exam. Therapy per neurosurgery. Plan DC to SNF once bed available. Assessment & Plan (06/10/2022 9:24 AM HOG SAWYER): Presented for elective C 3-5 ACDF and C3-7 posterior fusion on 03/17/22. Sutures out. Will need NSGY clinic OP follow up at [place]. Surgical incision healing well. No muscular spasticity noted on exam. Therapy per neurosurgery. Plan DC to SNF Assessment & Plan (06/08/2022 3:56 PM HOG SAWYER): Presented for elective C 3-5 ACDF and C3-7 posterior fusion on 03/17/22. Sutures out. Will need NSGY clinic OP follow up at [place]. Surgical incision healing well. No muscular spasticity noted on exam. Assessment & Plan (06/07/2022 10:57 AM HOG SAWYER): Presented for elective C 3-5 ACDF and C3-7 posterior fusion on 03/17/22. Sutures out. Will need NSGY clinic OP follow up [place]. Surgical incision healing well. No muscular spasticity noted on exam. Assessment & Plan (06/06/2022 6:33 PM HOG SAWYER): Presented for elective C 3-5 ACDF and C3-7 posterior fusion on 03/17. Sutures out. Will need NSGY follow up at [place]. Surgical incision healing well. No muscular spasticity noted on exam. Assessment & Plan (06/05/2022 2:02 PM HOG SAWYER): - Presented for elective C 3-5 ACDF and C3-7 posterior fusion on 03/17. Sutures out. Will need NSGY follow up [place]. Assessment & Plan (05/31/2022 2:57 PM HOG SAWYER): - Presented for elective C 3-5 ACDF and C3-7 posterior fusion on 03/17. Sutures out. Will need NSGY follow up [place]. Assessment & Plan (05/30/2022 2:04 PM HOG SAWYER): - Presented for elective C 3-5 ACDF and C3-7 posterior fusion on 03/17. Sutures out. Will need NSGY follow up [place]. Assessment & Plan (05/29/2022 3:13 PM HOG SAWYER): - Presented for elective C 3-5 ACDF and C3-7 posterior fusion on 03/17. Sutures out. Will need NSGY follow up [place]. Assessment & Plan (05/28/2022 1:53 PM HOG SAWYER): - Presented for elective C 3-5 ACDF and C3-7 posterior fusion on 03/17. Sutures out. Will need NSGY follow up [place]. Assessment & Plan (05/27/2022 3:53 PM HOG SAWYER): - Presented for elective C 3-5 ACDF and C3-7 posterior fusion on 03/17. Sutures out. Will need NSGY follow up [place]. Assessment & Plan (05/25/2022 3:16 PM HOG SAWYER): - Presented for elective C 3-5 ACDF and C3-7 posterior fusion on 03/17. Sutures out. Will need [place]GY follow up [place]. Strangulated inguinal hernia 09/19/2021 Overview (04/09/2022): Added automatically from request for surgery [id number] Assessment & Plan (08/16/2022 5:36 PM CDT): Stable, surgically treated; no further episodes of abdominal pain; Assessment & Plan (07/11/2022 12:48 PM CDT): S/p ex lap and repair 04/09. Had evidence of intestinal ischemia. Well healed incision. F/u CT 3 no obstruction, improving left sided stranding. Assessment & Plan (06/26/2022 5:18 PM CDT): S/p ex lap and repair 04/09. Had evidence of intestinal ischemia. Well healed incision. -Still NPO, swallow study redone given his being more awake, but speech recommends continued NPO status. On J tube feeds with complications as elsewhere. F/u CT 3 no obstruction, improving left sided stranding. Improved mental status, will ask speech to reassess swallow. Assessment & Plan (06/25/2022 10:24 AM CDT): S/p ex lap and repair 04/09. Had evidence of intestinal ischemia. Well healed incision. -Still NPO, swallow study redone given his being more awake, but speech recommends continued NPO status. On J tube feeds. F/u CT 3 no obstruction, improving left sided stranding. Assessment & Plan (06/23/2022 4:00 PM HOG SAWYER): S/p ex lap and repair 04/09. Had evidence of intestinal ischemia. Well healed incision. -Still NPO, swallow study redone given his being more awake, but speech recommends continued NPO status. On J tube feeds. Assessment & Plan (06/22/2022 4:16 PM HOG SAWYER): S/p ex lap and repair 04/09. Had evidence of intestinal ischemia. Well healed incision. -Still NPO, swallow study redone given his being more awake, but speech recommends continued NPO status. Assessment & Plan (06/21/2022 3:27 PM HOG SAWYER): S/p ex lap and repair 04/09. Had evidence of intestinal ischemia. Well healed incision. -Still NPO, swallow study redone given his being more awake, but speech recommends continued NPO status. Assessment & Plan (06/20/2022 6:16 PM HOG SAWYER): S/p ex lap and repair 04/09. Had evidence of intestinal ischemia. Well healed incision. -Still NPO, swallow study redone given his being more awake, but speech recommends continued NPO status. Assessment & Plan (06/16/2022 11:56 AM HOG SAWYER): S/p ex lap and repair 04/09. Had evidence of intestinal ischemia. Well healed incision. -Tolerating TF at goal per Gtube. Nutritional needs appear to be getting met. -Remains NPO per speech follow up on 06/14. Ok to do ice chips. Assessment & Plan (06/15/2022 1:20 PM HOG SAWYER): S/p ex lap and repair 04/09. Had evidence of intestinal ischemia. Well healed incision. -Tolerating TF at goal per Gtube. Nutritional needs appear to be getting met. -Remains NPO per speech follow up on 06/14. Ok to do ice chips. Assessment & Plan (06/14/2022 2:20 PM HOG SAWYER): S/p ex lap and repair 04/09. Had evidence of intestinal ischemia. Well healed incision. -Tolerating TF at goal per Gtube. Nutritional needs appear to be getting met. -Remains NPO per speech follow up on 06/08. Ok to do ice chips. Assessment & Plan (06/13/2022 3:59 PM HOG SAWYER): S/p ex lap and repair 04/09. Had evidence of intestinal ischemia. Well healed incision. -Tolerating TF at goal per Gtube. Nutritional needs appear to be getting met. -Remains NPO per speech follow up on 06/08. Assessment & Plan (06/12/2022 6:20 PM HOG SAWYER): S/p ex lap and repair 04/09. Had evidence of intestinal ischemia. Well healed incision. - tolerating TF per Gtube. Nutritional needs appear to be getting met. -Remains NPO per speech f/u 06/08. Billing statement I have reviewed electrolytes, K 3.6, ca 12.5. Discussed with RN and no tube feed residuals. Plan strict aspiration precautions, further advance diet and adjust tube feeds per senior sql server developer. Plan to recheck bed weight. Assessment & Plan (06/11/2022 4:35 PM HOG SAWYER): S/p ex lap and repair 04/09. Had evidence of intestinal ischemia. Well healed incision. - tolerating TF per Gtube. Nutritional needs appear to be getting met. -Remains NPO per speech f/u 06/08. Billing statement I have reviewed electrolytes, K 3.6, ca 12.5. Discussed with RN and no tube feed residuals. Plan strict aspiration precautions, further advance diet and adjust tube feeds per senior sql server developer. Plan to recheck bed weight. Assessment & Plan (06/10/2022 3:30 PM HOG SAWYER): S/p ex lap and repair 04/09. Had evidence of intestinal ischemia. Well healed incision. - tolerating TF per Gtube. Nutritional needs appear to be getting met. -Remains NPO per speech f/u 06/08. Billing statement I have reviewed electrolytes, K 3.6, ca 12.8. Discussed with RN and no tube feed residuals. Plan strict aspiration precautions, further advance diet and adjust tube feeds per senior sql server developer. Plan to recheck bed weight. Assessment & Plan (06/10/2022 9:27 AM HOG SAWYER): S/p ex lap and repair 04/09. Had evidence of intestinal ischemia. Well healed incision. - tolerating TF per Gtube. Nutritional needs appear to be getting met. - ADAT per speech. Billing statement I have reviewed electrolytes, K 3.3, ca 10.6. Discussed with RN and no tube feed residuals. Plan strict aspiration precautions, further advance diet and adjust tube feeds per senior sql server developer. Plan to recheck bed weight. Assessment & Plan (06/08/2022 4:11 PM HOG SAWYER): S/p ex lap and repair 04/09. Had evidence of intestinal ischemia. Well healed incision. - tolerating TF per Gtube. Nutritional needs appear to be getting met. - ADAT per speech. Billing statement I have reviewed electrolytes, K 3.3, ca 10.6. Discussed with RN and no tube feed residuals. Plan further advance diet and adjust tube feeds per senior sql server developer. Plan to recheck bed weight. Assessment & Plan (06/07/2022 11:08 AM HOG SAWYER): S/p ex lap and repair 04/09. Had evidence of intestinal ischemia. Well healed incision. - tolerating TF per Gtube. Nutritional needs appear to be getting met. - NPO per speech. Billing statement I have reviewed electrolytes, K 3.3, ca 10.6. Discussed with RN and no tube feed residuals. Plan to continue tube feeds at current rate. Plan to recheck bed weight. Assessment & Plan (06/06/2022 6:41 PM HOG SAWYER): - S/p ex lap and repair 04/09. Had evidence of intestinal ischemia. Well healed incision. - tolerating TF per Gtube. - NPO per speech. Billing statement I have reviewed electrolytes, K 3.3, ca 10.6. Discussed with RN and no tube feed residuals. Plan to continue tube feeds at current rate. Assessment & Plan (06/05/2022 2:01 PM HOG SAWYER): - S/p ex lap and repair 04/09. Had evidence of intestinal ischemia. Well healed incision. - tolerating TF - NPO per speech Assessment & Plan (06/04/2022 11:09 AM HOG SAWYER): - S/p ex lap and repair 04/09. Had evidence of intestinal ischemia. Well healed incision. - tolerating TF - NPO per speech Assessment & Plan (06/02/2022 2:26 PM HOG SAWYER): - S/p ex lap and repair 04/09. Had evidence of intestinal ischemia. Well healed incision. - tolerating TF - NPO per speech Assessment & Plan (06/01/2022 2:18 PM HOG SAWYER): - S/p ex lap and repair 04/09. Had evidence of intestinal ischemia. Well healed incision. - tolerating TF - NPO per speech Assessment & Plan (05/31/2022 2:57 PM HOG SAWYER): - S/p ex lap and repair 04/09. Had evidence of intestinal ischemia. Well healed incision. - tolerating TF - NPO per speech Assessment & Plan (05/30/2022 2:04 PM HOG SAWYER): - S/p ex lap and repair 04/09. Had evidence of intestinal ischemia. Well healed incision. - tolerating TF - NPO 2/2 mental status Assessment & Plan (05/29/2022 3:13 PM HOG SAWYER): - S/p ex lap and repair 04/09. Had evidence of intestinal ischemia. Well healed incision. Assessment & Plan (05/28/2022 1:53 PM HOG SAWYER): - S/p ex lap and repair 04/09. Had evidence of intestinal ischemia. Well healed incision. Assessment & Plan (05/27/2022 3:53 PM HOG SAWYER): - S/p ex lap and repair 04/09. Had evidence of intestinal ischemia. Well healed incision. Assessment & Plan (05/25/2022 3:17 PM HOG SAWYER): - S/p ex lap and repair 04/09. Had evidence of intestinal ischemia. Well healed incision. Age-related osteoporosis wit hout current pathological fracture 08/23/2021 Assessment & Plan (10/25/2021 3:35 PM CDT): Not well controlled, patient also has hypo vitamin-D Will start alendronate 70 mg weekly Continue ergocalciferol 14295 units weekly Ensure calcium approximately 1000 mg daily Assessment & Plan (08/23/2021 10:51 AM CDT): Diagnosed on DEXA scan; patient referred to bone health clinic; however appointment is over one year out DEXA reviewed, z-score of -2.7% in left femoral neck -will get Vitamin D, PTH and Calcium levels; if appropriate can start bisphosphonate thearpy DDD (degenerative disc disease), lumbar 08/03/19 22 Lumbar radiculopathy 08/02/2021 Assessment & Plan (12/27/2023 1:34 PM CDT): Stable, generally well controlled, though does have some chronic back pain; follows with pain management; recent injection Has some possible neurogenic claudication at nighttime Assessment & Plan (10/16/2023 4:09 PM CDT): Completed physical therapy, continues to have low back pain; to get MRI and x- ray to evaluate symptoms Pain radiates to both legs Uses cushions to relieve low back pain; can not stand for long durations Facet hypertrophy of lumbar region 08/02/2021 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 Assessment & Plan (08/23/2021 10:48 AM CDT): Well controlled; patient reports good response to injections from pain management. Left carotid bruit 06/20/2021 Personal history of colonic polyps 01/27/2021 Overview (01/27/2021): Added automatically from request for surgery [id number] Bilateral primary osteoarthritis of knee 021 Assessment & Plan (12/20/2021 2:08 PM CDT): Not well controlled, continues to have significant pain in bilateral legs Continue to monitor encourage follow-up with orthopedics as needed AMAYA on CPAP 12/23/2020 Assessment & Plan (12/27/2023 1:34 PM CDT): Stable well controlled, uses CPAP Assessment & Plan (10/16/2023 4:09 PM CDT): Uses CPAP nightly Assessment & Plan (12/20/2021 2:08 PM CDT): Stable, continues to CPAP at night History of 2019 novel coronavirus disease (COVID -19) 09/22/2020 Assessment & Plan (07/18/2022 1:55 PM CDT): Patient has history of COVID 19 infection and tested positive on 05/30/22. He is considered Covid recovered and has no COVID related symptoms. A test was ordered today at request of accepting facility, and returned positive (07/18/22). Hospital policy is typically not to retest asymptomatic patients within a 3 month period as it can be persistently positive. Do not believe that patient has an active COVID infection. Assessment & Plan (09/22/2020 9:05 PM CDT): Post covid syndrome with fatigue, cough, vertigo. Treating symptoms Medicare annual wellness visit, subsequent 09/22 Assessment & Plan (12/27/2023 1:32 PM CDT): 78-year-old male in fair overall health; chronic medical conditions generally well controlled, with improvement in cognitive function and general activity since prolonged hospitalization Assessment & Plan (09/22/2020 9:10 PM CDT): -Recommended: Healthy diet. Avoiding junk food/fast food. -30 minutes of exercise most days of the week. Increase to 45 minutes for weight loss. Immunizations: Recommended shingrex at his convenience increase physical activity, follow low fat diet, call if any problems Follow-up in 1 month. 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 09/16/2020 Assessment & Plan (12/27/2023 1:34 PM CDT): Stable, well controlled; patient uses cane when leaving house, does not need support when it home No recent falls The patient remains unstable, has increased risk of falls or has multiple falls, would refer to physical therapy Assessment & Plan (08/23/2021 10:47 AM CDT): Continues to have some gait instability, uses cane for ambulation Assessment & Plan (04/29/2021 11:06 AM HOG SAWYER): Stable, patient reports occasional episodes of vertigo, generally well controlled, uses cane as needed for steadiness Assessment & Plan (09/16/2020 11:50 AM CDT): Vestibular rehab for vestibular dysfunction Good hydration LBBB (left bundle branch block) 06/08/2020 Thrush 05/14/2020 Hypophosphatemia 05/10/2020 Hyperglycemia 05/08/2020 COPD (chronic obstructive pulmonary disease) Assessment & Plan (12/27/2023 1:33 PM CDT): Stable, well controlled; breathing is generally good with some coughing at night Continue Trelegy Ellipta 1 puff daily; recommend use of nebulizer solution at bedtime to help reduce nighttime coughing Assessment & Plan (10/16/2023 4:08 PM CDT): Stable, gets dyspneic at time; uses nebulizer p.r.n. Continue albuterol nebulizer; Trelegy Ellipta 1 puff daily Assessment & Plan (07/17/2023 4:24 PM CDT): Stable, well controlled; no issues with breathing; continue Trelegy Ellipta 1 puff daily Assessment & Plan (12/20/2022 1:08 PM CDT): Stable, well controlled; no significant dyspnea; the patient has limited physical activity Continue Trelegy Ellipta 1 puff daily, albuterol p.r.n. Assessment & Plan (11/10/2022 9:32 AM CDT): Stable, generally well controlled; continue Trelegy Ellipta 1 puff daily Assessment & Plan (10/30/2022 4:54 PM CDT): Stable, well controlled; no major issues with breathing Continue Trelegy Ellipta 1 puff daily, nebulizer p.r.n. for dyspnea Assessment & Plan (08/16/2022 5:37 PM CDT): Stable, generally well controlled, continue Trelegy Ellipta 1 puff daily Assessment & Plan (07/22/2022 12:07 PM CDT): Patient on Trelegy and on albuterol nebulizers as well as Atrovent nebs Patient minimal shortness of breath Assessment & Plan (07/16/2022 10:06 AM CDT): History of COPD. Managed with Budesonide nebs and PRN albuterol. Prior exacerbation treatment this stay, currently controlled, on RA. Assessment & Plan (06/26/2022 5:12 PM CDT): History of COPD. Managed with Budesonide nebs and PRN albuterol. Prior exacerbation treatment this stay, currently controlled. Currently on RA, no wheezing. Quie a long duration of being unable to follow commands for MDI, continue nebulizers with RT and doing well. Stable pulmonary status. Improving mental status, as above. Assessment & Plan (06/25/2022 10:20 AM CDT): History of COPD. Managed with Budesonide nebs and PRN albuterol. Prior exacerbation treatment this stay, currently controlled. Currently on RA, no wheezing. Unable to follow commands for MDI, continue nebulizers with RT and doing well. Stable. Assessment & Plan (06/24/2022 5:04 PM HOG SAWYER): History of COPD. Managed with Budesonide nebs and PRN albuterol. Prior exacerbation treatment this stay, currently controlled. Currently on RA, no wheezing. Unable to follow commands for MDI, continue nebulizers with RT and doing well. Stable. Assessment & Plan (06/23/2022 3:49 PM HOG SAWYER): History of COPD. Managed with Budesonide nebs and PRN albuterol. Prior exacerbation treatment this stay, currently controlled. Currently on RA, no wheezing. -Unable to follow commands for MDI, continue nebulizers with RT and doing well. Assessment & Plan (06/22/2022 4:10 PM HOG SAWYER): History of COPD. Managed with Budesonide nebs and PRN albuterol. Prior exacerbation treatment this stay, currently controlled. Currently on RA, no wheezing. -Unable to follow commands for MDI, continue nebulizers and doing well. Assessment & Plan (06/21/2022 3:24 PM HOG SAWYER): History of COPD. Managed with Budesonide nebs and PRN albuterol. Prior exacerbation treatment this stay, currently controlled. Currently on RA, no wheezing. -Unable to follow commands for MDI, continue nebs. Doing well. Assessment & Plan (06/20/2022 6:10 PM HOG SAWYER): History of COPD. Managed with Budesonide nebs and PRN albuterol. Prior exacerbation treatment this stay, currently controlled. Currently on RA, no wheezing. -Unable to follow commands for MDI, continue nebs. Doing well. Assessment & Plan (06/16/2022 11:50 AM HOG SAWYER): History of COPD. Managed with Budesonide nebs and PRN albuterol. Prior exacerbation treatment this stay, currently controlled. Currently on RA, no wheezing. -Unable to follow commands for MDI, continue nebs. Assessment & Plan (06/15/2022 1:18 PM HOG SAWYER): History of COPD. Managed with Budesonide nebs and PRN albuterol. Prior exacerbation treatment this stay, currently controlled. Currently on RA, no wheezing. -Unable to follow commands for MDI, continue nebs. Assessment & Plan (06/14/2022 2:19 PM HOG SAWYER): History of COPD. Managed with Budesonide nebs and PRN albuterol. Prior exacerbation treatment this stay, currently controlled. Currently on RA, no wheezing. -Unable to follow commands for MDI, continue nebs. Assessment & Plan (06/13/2022 3:55 PM HOG SAWYER): History of COPD. Managed with Budesonide nebs and PRN albuterol. Prior exacerbation treatment this stay, currently controlled. Currently on RA, no wheezing. -Unable to follow commands for MDI, continue nebs. Assessment & Plan (06/12/2022 6:18 PM HOG SAWYER): Hx COPD. Managed Budesonide nebs and PRN albuterol. Prior exacerbation treatment this stay, currently controlled On 2L, weaned to RA. Unable to follow commands for MDI, continue nebs. Stable. Billing statement Reviewed O2 requirements last 24hrs and recent chest imaging, exam without wheezing but encephalopathy limits use of MDIs. Plan to continue nebs as prescribed. No change in current plan. Assessment & Plan (06/11/2022 4:33 PM HOG SAWYER): Hx COPD. Managed Budesonide nebs and PRN albuterol. Prior exacerbation treatment this stay, currently controlled On 2L, weaned to RA. Unable to follow commands for MDI, continue nebs. Billing statement Reviewed O2 requirements last 24hrs and recent chest imaging, exam without wheezing but encephalopathy limits use of MDIs. Plan to continue nebs as prescribed. No change in current plan. Assessment & Plan (06/10/2022 3:24 PM HOG SAWYER): Hx COPD. Managed Budesonide nebs and PRN albuterol. Prior exacerbation treatment this stay, currently controlled On 2L-RA. Unable to follow commands for MDI, continue nebs. Billing statement Reviewed O2 requirements last 24hrs and recent chest imaging, exam without wheezing but encephalopathy limits use of MDIs. Plan to continue nebs as prescribed. No change in current plan. Assessment & Plan (06/10/2022 9:25 AM HOG SAWYER): Hx COPD. Managed Budesonide nebs and PRN albuterol. Prior exacerbation treatment this stay, currently controlled On 2L-RA. Billing statement Reviewed O2 requirements last 24hrs and recent chest imaging, exam without wheezing but encephalopathy limits use of MDIs. Plan to continue nebs as prescribed. No change in current plan. Assessment & Plan (06/08/2022 4:03 PM HOG SAWYER): Hx COPD. Managed Budesonide nebs and PRN albuterol. Prior exacerbation treatment this stay, currently controlled On 2L-RA. Billing statement Reviewed O2 requirements last 24hrs and recent chest imaging, exam without wheezing but encephalopathy limits use of MDIs. Plan to continue nebs as prescribed. Assessment & Plan (06/07/2022 11:02 AM HOG SAWYER): - Budesonide nebs and PRN albuterol. Prior exacerbation treatment this stay, currently controlled On RA Billing statement Reviewed O2 requirements last 24hrs and recent chest imaging, exam without wheezing but encephalopathy limits use of MDIs. Plan to continue nebs as prescribed. Assessment & Plan (06/06/2022 6:34 PM HOG SAWYER): - Budesonide nebs and PRN albuterol. Prior exacerbation treatment this stay, currently controlled On RA Billing statement Reviewed O2 requirements and recent chest imaging. Plan DC continuous O2 sat monitoring. Assessment & Plan (06/05/2022 2:02 PM HOG SAWYER): - Budesonide nebs and PRN albuterol. Prior exacerbation treatment this stay, currently controlled On RA Assessment & Plan (05/30/2022 2:04 PM HOG SAWYER): - Budesonide nebs and PRN albuterol. Prior exacerbation treatment this stay, currently controlled On RA Assessment & Plan (05/29/2022 3:13 PM HOG SAWYER): - Budesonide nebs and PRN albuterol. Prior exacerbation treatment this stay, currently controlled On RA Assessment & Plan (05/28/2022 1:53 PM HOG SAWYER): - Budesonide nebs and PRN albuterol. Prior exacerbation treatment this stay, currently controlled On RA Assessment & Plan (05/27/2022 3:53 PM HOG SAWYER): - Budesonide nebs and PRN albuterol. Prior exacerbation treatment this stay, currently controlled On RA Assessment & Plan (05/26/2022 1:17 PM HOG SAWYER): - Budesonide nebs and PRN albuterol. Prior exacerbation treatment this stay, currently controlled On RA Assessment & Plan (12/20/2021 2:07 PM CDT): Stable, generally well controlled; the patient reports difficulty when wearing N95 mask Uses rescue inhaler 1-2 times per day Continue albuterol p.r.n.; Trelegy Ellipta 1 puff daily Assessment & Plan (08/23/2021 10:49 AM CDT): Stable, well controlled; continue with Trelegy Ellipta Assessment & Plan (06/07/2021 4:52 PM HOG SAWYER): Stable, well controlled; quit smoking approximately 24 years ago Active in pulmonary rehab, walking for up to 60 minutes at a time new line rare use of rescue inhaler Continue Trelegy Ellipta 1 puff daily Assessment & Plan (04/29/2021 11:07 AM HOG SAWYER): Stable, well controlled; patient reports he does get dyspneic especially significant exertion Follows with pulmonology for management Continue Trelegy Ellipta 1 puff daily, albuterol p.r.n. for dyspnea Assessment & Plan (02/21/2021 8:31 PM HOG SAWYER): Continues to have significant cough, barking cough; no wheezes and good air movement; completed pulmonary rehab -some improvement with use of nebulizer and standing up from sitting -continue with albuterol nebulizer, will evaluate hiatal hernia as source of GERD and/or coughing; consider starting PPI if limted response BPH (benign prostatic hyperplasia) 05/06/2020 Assessment & Plan (12/27/2023 1:33 PM CDT): Stable, generally well controlled with some difficulty at night Continue finasteride 5 mg daily Assessment & Plan (10/16/2023 4:09 PM CDT): Stable, well controlled, urination is improving, occasional urinary incontinence with consist serial Continue finasteride 5 mg daily Assessment & Plan (12/20/2021 2:06 PM CDT): Stable, well controlled; good urination Continue finasteride 5 mg daily Assessment & Plan (06/07/2021 4:51 PM HOG SAWYER): Stable, well controlled; continue to monitor Assessment & Plan (04/29/2021 11:07 AM HOG SAWYER): Stable, well controlled; patient reports occasional episodes of nocturia x1 Continue finasteride 5 mg daily Assessment & Plan (05/06/2020 12:57 PM HOG SAWYER): Patient does report increased urine frequency. UA negative for UTI. On Finasteride at home. Replaced with Dutasteride while here. 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 p.r.n. for vertigo. He is going to start the sertraline 50 mg daily while he is tapering off of the fluoxetine. Refer to ear nose and throat for possible BPPV. I would also like him to see Neurology for his ongoing complaint of vertigo and balance issues. Assessment & Plan (05/06/2020 12:56 PM HOG SAWYER): Continue meclizine prn. Assessment & Plan (04/08/2020 3:22 AM HOG SAWYER): Patient feels ataxic but [id number] and [id number] were normal. MRI is pending. Neurology has been consulted. Meclizine has not helped. Fall precautions. May need PT after MRI is completed. Assessment & Plan (04/07/2020 1:52 PM HOG SAWYER): With new lethargy, orthostatic hypotension- I believe pt needs lab work and CT head to r/o cva/ bleed. Differential includes dehydration or vertigo. Pt was agreeable to ER for evaluation Gynecomastia 03/27/2019 Coronary artery calcification 03/27/2019 Assessment & Plan (10/16/2023 4:09 PM CDT): No chest pain or pressure Continue ASA 81 mg daily; rosuvastatin 40 mg daily Numbness and tingling 03/04/2019 Assessment & Plan (03/04/2019 2:55 PM HOG SAWYER): Will do emg/ncs . Recommended cock-up wrist brace, especially to be worn at night. Nsaids. Primary osteoarthritis of left knee 01/25/2018 Synovial cyst of left popliteal space 11/04/2017 Essential hypertension 02/26/2013 Overview (07/20/2016): Hypertension Assessment & Plan (12/27/2023 1:32 PM CDT): Stable, well controlled, blood pressure at goal; no chest pain pressure or orthostatics Continue amlodipine 10 mg daily, carvedilol 25 mg b.i.d., losartan 50 mg daily Assessment & Plan (10/16/2023 4:08 PM CDT): Stable, well controlled, blood pressure at goal Continue losartan 50 mg daily, carvedilol 25 mg b.i.d., amlodipine 10 mg daily Assessment & Plan (07/17/2023 4:24 PM CDT): Stable, well controlled, blood pressure goal; Continue amlodipine 10 mg daily, carvedilol 25 mg b.i.d. Assessment & Plan (12/20/2022 1:07 PM CDT): Stable, well controlled; BP at goal; continue amlodipine 10 mg daily, carvedilol 25 mg daily Assessment & Plan (11/10/2022 9:32 AM CDT): Not well controlled, blood pressure mildly elevated today; no chest pain or headaches Continue amlodipine 10 mg daily, carvedilol 25 mg b.i.d. Assessment & Plan (08/16/2022 5:35 PM CDT): Stable, well controlled; blood pressure at target today No episodes of orthostatics Continue amlodipine 10 mg daily, carvedilol 25 mg b.i.d. Assessment & Plan (07/22/2022 12:09 PM CDT): Patient to continue Norvasc, aspirin and Coreg basic metabolic panel Assessment & Plan (07/11/2022 12:49 PM CDT): Continue amlodipine 10 mg daily. Discontinued home HCTZ on admit. On coreg and uptitrated to 50mg BID - Mostly normotensive, will continue to monitor serial renal function, volume status. Assessment & Plan (06/26/2022 5:12 PM CDT): Continue amlodipine 10 mg daily. Discontinued home HCTZ on admit. On coreg and uptitrated to 25 BID on 06/05/22. Volume stable off dialysis. No peripheral edema. -Mostly normotensive, will continue to monitor serial renal function, volume status. Assessment & Plan (06/25/2022 10:20 AM CDT): Continue amlodipine 10 mg daily. Discontinued home HCTZ on admit. On coreg and uptitrated to 25 BID on 06/05/22. Volume stable off dialysis. No peripheral edema. -Mostly normotensive, will continue to monitor. Assessment & Plan (06/24/2022 5:05 PM HOG SAWYER): Continue amlodipine 10 mg daily. Discontinued home HCTZ on admit. On coreg and uptitrated to 25 BID on 06/05/22. Volume stable off dialysis. No peripheral edema. -Mostly normotensive, will continue to monitor. Assessment & Plan (06/23/2022 3:49 PM HOG SAWYER): Continue amlodipine 10 mg daily. Discontinued home HCTZ on admit. On coreg and uptitrated to 25 BID on 06/05/22. Volume stable off dialysis. -Mostly normotensive, will continue to monitor. Assessment & Plan (06/22/2022 4:11 PM HOG SAWYER): Continue amlodipine 10 mg daily. Discontinued home HCTZ on admit. On coreg and uptitrated to 25 BID on 06/05/22. Volume stable off dialysis. -Mostly normotensive, will continue to monitor. Assessment & Plan (06/21/2022 3:25 PM HOG SAWYER): Continue amlodipine 10 mg daily. Discontinued home HCTZ on admit. On coreg and uptitrated to 25 BID on 06/05. Volume stable. -Mostly normotensive, will continue to monitor. Assessment & Plan (06/20/2022 6:10 PM HOG SAWYER): -Continue amlodipine 10 mg daily -Continue coreg. Uptitrated coreg 25 BID on 06/05. Volume stable. -Mostly normotensive, will continue to monitor. Assessment & Plan (06/16/2022 11:50 AM HOG SAWYER): -Continue amlodipine 10 mg daily -Continue coreg. Uptitrated coreg 25 BID on 06/05. -Mostly normotensive, will continue to monitor. Assessment & Plan (06/15/2022 1:17 PM HOG SAWYER): -Continue amlodipine 10 mg daily -Continue coreg. Uptitrated coreg 25 BID on 06/05. -Mostly normotensive, will continue to monitor. Assessment & Plan (06/14/2022 2:19 PM HOG SAWYER): -Continue amlodipine 10 mg daily -Continue coreg. Uptitrated coreg 25 BID on 06/05. -Mostly normotensive, will continue to monitor. Assessment & Plan (06/13/2022 3:54 PM HOG SAWYER): -Continue amlodipine 10 mg daily -Continue coreg. Uptitrated coreg 25 BID on 06/05. -Mostly normotensive, will continue to monitor. Assessment & Plan (06/12/2022 6:19 PM HOG SAWYER): Cont amlodipine, coreg, uptitrated coreg to 25 bid given persistent HTN 2/20. Improved trend, continue dosing at this level. Billing statement Plan continue dual agent control. Plan monitor renal function as OP. Assessment & Plan (06/11/2022 4:34 PM HOG SAWYER): Cont amlodipine, coreg, uptitrated coreg to 25 bid given persistent HTN 2/20. Improved trend, continue dosing at this level. Billing statement Plan continue dual agent control. Plan monitor renal function. Assessment & Plan (06/10/2022 3:25 PM HOG SAWYER): Cont amlodipine, coreg, uptitrated coreg to 25 bid given persistent HTN 2/20. Improved trend, continue dosing at this level. Billing statement Plan continue dual agent control. Plan monitor renal function. Assessment & Plan (06/10/2022 9:25 AM HOG SAWYER): Cont amlodipine, coreg, uptitrated coreg to 25 bid given persistent HTN 2/20. Improved trend, continue dosing at this level. Billing statement Plan continue dual agent control. Assessment & Plan (06/08/2022 4:04 PM HOG SAWYER): Cont amlodipine, coreg, uptitrated coreg to 25 bid given persistent HTN 2/20. Improved trend, continue dosing at this level. Billing statement Plan dual agent control. Assessment & Plan (06/07/2022 11:03 AM HOG SAWYER): Cont amlodipine, coreg, uptitrated coreg to 25 bid given persistent HTN 2/20. Improved trend, continue dosing at this level. Assessment & Plan (06/06/2022 6:35 PM HOG SAWYER): Cont amlodipine, coreg, uptitrated coreg to 25 bid given persistent HTN 2/20. Improved trend, will hold dosing at this level. Assessment & Plan (06/05/2022 2:02 PM HOG SAWYER): Cont amlodipine, coreg, uptitrated coreg to 25 bid given persistent HTN 06/05 Assessment & Plan (05/30/2022 2:05 PM HOG SAWYER): Cont amlodipine, coreg Assessment & Plan (05/29/2022 3:13 PM HOG SAWYER): Cont current meds Assessment & Plan (05/28/2022 1:53 PM HOG SAWYER): Cont current meds Assessment & Plan (05/27/2022 3:53 PM HOG SAWYER): Cont current meds Assessment & Plan (05/26/2022 1:17 PM HOG SAWYER): Cont current meds Assessment & Plan (12/20/2021 2:04 PM CDT): Stable, well controlled; blood pressure at target, with no headaches, no chest pain No orthostatics Continue amlodipine 10 mg daily, hydrochlorothiazide 25 mg daily, losartan 100 mg daily, metoprolol 25 mg daily Assessment & Plan (08/23/2021 10:46 AM CDT): -stable, mildly elevated today, has some gait instability but denies orhostatics -continue amlodipine 10 mg daily, HCTZ 25 mg, Losartan 100 mg, Metoprolol 25 mg Assessment & Plan (06/07/2021 4:50 PM HOG SAWYER): Stable, well controlled; blood pressure at target today Continue hydrochlorothiazide 25 mg daily Assessment & Plan (04/29/2021 11:04 AM HOG SAWYER): Controlled; blood pressure at target Continue amlodipine 10 mg, to chlorothiazide 25 mg, losartan 100 mg Assessment & Plan (07/20/2020 7:39 AM CDT): Rechecked in office and was 136/78. Will continue to monitor. May need to change medication. Pt also sees cardiology. Will see him back next month and will recheck Assessment & Plan (05/06/2020 12:55 PM HOG SAWYER): Presented with elevated BP. Presently well controlled. Continue home Amlodipine and Losartan. HCTZ is on hold as patient is currently on iv fluids. Assessment & Plan (04/08/2020 3:18 AM HOG SAWYER): Amlodipine and losartan have been resumed with hold parameters. Holding hydrochlorothiazide as it can cause vertigo. Assessment & Plan (03/24/2020 8:24 AM HOG SAWYER): Blood pressure is adequately controlled on current medication. We will not make any medication changes today. Will have him follow-up in 6 months for continued monitoring and management Assessment & Plan (09/22/2019 4:36 PM CDT): Stable. Continue current medication. Assessment & Plan (10/02/2018 2:25 PM CDT): Hypertension is improving with treatment. Continue current medications. Blood pressure will be reassessed Four weeks. Assessment & Plan (01/14/2018 2:32 PM CDT): Hypertension is improving with treatment. Continue current medications. Blood pressure will be reassessed 6 months and prn. Assessment & Plan (10/03/2016 8:53 AM CDT): Hypertension is improving with treatment. Continue current treatment regimen. Blood pressure will be reassessed at the next regular appointment 6 months. Recurrent major depressive disorder, in full rem ission 02/26/2013 Overview (07/21/2016): Depression, major Assessment & Plan (12/27/2023 1:32 PM CDT): Stable, well controlled; no major issues at this time; patient is feeling improved in his functional status Continue duloxetine 30 mg daily Assessment & Plan (10/16/2023 4:07 PM CDT): Stable, improving; depression is improving as patient is more familiar with what he can and can not do anymore Continue duloxetine 30 mg daily, trazodone 100 mg nightly Assessment & Plan (10/30/2022 4:54 PM CDT): No episodes of depression, the patient reports intrusive dreams; had prolonged hospitalization with ICU Continue duloxetine 30 mg daily, sertraline 25 mg daily Assessment & Plan (08/16/2022 5:36 PM CDT): Improving, patient continues to have some disorientation related to prolonged hospitalization as well as prolonged delirium Continue duloxetine 30 mg daily, will taper sertraline Continue trazodone 100 mg nightly p.r.n. for insomnia Assessment & Plan (12/30/2021 3:01 PM CDT): Mild worsening depression secondary to delay in surgery Continue sertraline 100 mg daily Assessment & Plan (08/23/2021 10:48 AM CDT): Stable, well controlled with Zoloft 100 mg -patient reports he has some mood changes given uncertain treatment plan, having unanswered questions and lack of control going forward -will get recommended labs today and evaluate for starting treatment of osteoporosis as recommended. Assessment & Plan (06/07/2021 4:51 PM HOG SAWYER): Stable, well controlled; continue sertraline 100 mg Assessment & Plan (09/22/2020 9:06 PM CDT): Stable if not improved on zoloft. Not worsened. Will continue zoloft 100mg daily. May f/u 6 months Assessment & Plan (07/19/2020 1:10 PM CDT): Will decrease prozac to 20mg x 15 days, then 10mg x 15 days while concurrently switching him to sertraline 50mg x 15 days, then increase to 100mg x 15 days. Have him f/u in 1 month for recheck. Call in interim if any problems/concerns with medication change. Assessment & Plan (05/06/2020 12:54 PM HOG SAWYER): Continue home Prozac. Mood is stable at this time. Assessment & Plan (04/08/2020 3:18 AM HOG SAWYER): Continue SSRI Assessment & Plan (03/24/2020 8:24 AM HOG SAWYER): Stable on current medication. Continue fluoxetine as ordered. May follow up in 6 months Assessment & Plan (09/22/2019 4:36 PM CDT): Stable. Continue fluoxetine Assessment & Plan (10/02/2018 2:28 PM CDT): Psychological condition is worsening. Medication changes per orders. Psychological condition will be reassessed in 4 weeks He has been on Prozac for many years. Will increase to 40 mg daily. Will have him follow up in 1 month. If no improvement will consider changing to different SSRI . Mixed hyperlipidemia 02/26/2013 Overview (07/21/2016): Hyperlipidemia Assessment & Plan (12/27/2023 1:33 PM CDT): Stable, well controlled; last lipids near optimal; however has been for improvement target of LDL less than 70 for CAD Continue rosuvastatin 40 mg daily Assessment & Plan (10/16/2023 4:08 PM CDT): Stable, well controlled continue to monitor closely Assessment & Plan (12/20/2022 1:08 PM CDT): Stable, well controlled; tolerating medication well Continue rosuvastatin 40 mg daily Assessment & Plan (08/07/2022 3:09 PM CDT): No myalgia, continue with statin Assessment & Plan (12/20/2021 2:05 PM CDT): Stable, well controlled; continue rosuvastatin 40 mg daily Assessment & Plan (08/23/2021 10:46 AM CDT): Stable, continue Rosuvastatin 40 mg Assessment & Plan (06/07/2021 4:50 PM HOG SAWYER): Stable, well controlled; no side effects from current medication Continue rosuvastatin 40 mg daily Assessment & Plan (04/29/2021 11:05 AM HOG SAWYER): Stable, well controlled LDL less than 100; continues to have elevated ASCVD risk score 24.8% Continue rosuvastatin 40 mg daily, good blood pressure control Assessment & Plan (05/06/2020 12:54 PM HOG SAWYER): Continue home statin Assessment & Plan (04/08/2020 3:18 AM HOG SAWYER): Continue Crestor Assessment & Plan (03/24/2020 8:24 AM HOG SAWYER): Lipid abnormalities are stable, reviewed previous lipid levels in [facility]. Pharmacotherapy as ordered. Order for lipid panel was given today to be obtained. Pt voiced understanding of lab drawn and continuation of current medication regimen. Assessment & Plan (09/22/2019 4:35 PM CDT): Lipid abnormalities are stable. Pharmacotherapy as ordered. Lipids will be reassessed in 6 months. Assessment & Plan (10/02/2018 2:25 PM CDT): Lipid abnormalities are unchanged. Pharmacotherapy as ordered. Lipids will be reassessed in 6 months Orders for labs given. Assessment & Plan (01/14/2018 2:32 PM CDT): Lipid abnormalities are improving with treatment. Pharmacotherapy as ordered. Lipids will be reassessed in 6 months. Assessment & Plan (10/03/2016 8:54 AM CDT): Lipid abnormalities are improving with treatment. Pharmacotherapy as ordered. Lipids will be reassessed in 6 months. Immunizations Immunization Administration Dates Next Due Influenza, Quad, Adjuvantate d, Intramuscular 12/26/2021 Influenza, Quadrivalent, Hig h Dose, Preservative Free, Intrr 01/17/2021,02/05/2020 Influenza, Split 02/26/2013 Influenza, Trivalent, High D ose, Split, Preservative Free, Intramuscular 03/04/2019,03/12/2018 Influenza, Trivalent, IM (MDV) 02/26/2013 Influenza, Unspecified 01/08/2024,2022,12/20/2022(Defer red: Patient Refused),12/15/2020(Deferred: Patient Refused),12/15/2020(Deferred: Patient Refused),12/16/2019(Deferred: Patient Refused),12/16/2019(Deferred: Patient Refused),03/12/2018,03/22/2017(Deferre d: Patient Refused) Pfizer SARS-CoV-2 Monovalent Vaccination (12+ Yrs) PURPLE 12/26/2021,08/18/2021,01/26/2021 Pneumococcal Conjugate PCV 13 01/06/2019 Pneumococcal Polysaccharide PPV23 11/30/2019 Tdap 03/12/2018 Social History Tobacco Use Types Packs/Day Years Used Date Smoking Tobacco: Former Cigarettes 1 30.6 1 967 - 1996 Smokeless Tobacco: Never Tobacco Cessation:Counseling Given: Not Answered Alcohol Use Standard Drinks/Week Comments No 0 (1 standard drink = 0.6 oz pur e alcohol) OASIS D0700: Social Isolation Answer Da te Recorded Frequency of experiencing loneliness or isolatio n Never 10/09/2022 OASIS A1250: Transportation Answer Date Recorded Lack of Transportation (Medical) No 10/09/2022 Lack of Transportation (Non-Medical) No 10/09/2022 Patient Unable or Declines to Respond No 10/09/2022 OASIS B1300: Health Literacy Answer José Miguel e Recorded Frequency of needing help to read materials from doctor or pharmacy Sometimes 10/09/2022 [facility] Utilities Answer Date Recorded In the past 12 months has th e [employer], oil, or water [employer] threatened to shut off services in your home? No 06/20/2023 Social Connection and Isolat ion Panel [NHANES] Answer Date Recorded In a typical week, how many times do you talk on the phone with family, friends, or neighbors? Three times a week 06/20/2023 How often do you get togethe r with friends or relatives? Once a week 06/20/2023 How often do you attend chur ch or scientologist services? More than 4 times per year 06/20/2023 Do you belong to any clubs o r organizations such as confucianism groups, unions, fraternal or athletic groups, or school groups? No 06/20/2023 How often do you attend meet ings of the clubs or organizations you belong to? Never 06/20/2023 Are you , , di vorced, , never , or living with a partner? 06/20/2023 AUDIT-C Answer Date Recorded Q1: How often do you have a drink containing alcohol? Never 06/19/2023 Q2: How many drinks containi ng alcohol do you have on a typical day when you are drinking? Patient does not drink Q3: How often do you have si x or more drinks on one occasion? Never 06/19/2023 Overall Financial Resource Strain (CARDIA) Answe r Date Recorded How hard is it for you to pa y for the very basics like food, housing, medical care, and heating? Not hard at all 06/20/2023 PHQ-2 Answer Date Recorded PHQ-2 Total Score (If total score is 3 or more points, staff should administer the PHQ-9) 0 12/27/2023 Hunger Vital Sign Answer Date Recorded Within the past 12 months, y ou worried that your food would run out before you got the money to buy more. Never true 06/20/19 24 Within the past 12 months, t he food you bought just didn't last and you didn't have money to get more. Never true 06/20/2023 PRAPARE - Transportation Answer Date Re corded In the past 12 months, has l ack of transportation kept you from medical appointments or from getting medications? No 09/2023 In the past 12 months, has l ack of transportation kept you from meetings, work, or from getting things needed for daily living? No 06/20/2023 Housing Stability Vital Sign Answer José Miguel e Recorded In the last 12 months, was t here a time when you were not able to pay the mortgage or rent on time? No 06/20/2023 In the last 12 months, how many places have you lived? 1 06/20/2023 In the last 12 months, was t here a time when you did not have a steady place to sleep or slept in a senior living (including now)? No 06/20/2023 Personal Safety Answer Date Recorded Have you ever been in or are you currently in a harmful physical or emotional relationship or is someone making you feel afraid or unsafe? Denies 06/16/2023 Sex and Gender Information Value Date Recorded Sex Assigned at Not on file Legal Sex Male 1:30 PM HOG SAWYER Gender Identity Male 02/21/2021 12:31 PM HOG SAWYER Sexual Orientation Straight 12/22/2020 11 :36 AM CDT Last Filed Vital Signs Vital Sign Reading Time Taken Comments Blood Pressure 155/69 02/27/2024 11:30 AM HOG SAWYER Pulse 64 02/27/2024 11:30 AM HOG SAWYER Temperature 36.8 C (98.3 F) 02/13/2024 8:35 AM CDT Respiratory Rate 18 02/27/2024 11:30 AM HOG SAWYER Oxygen Saturation 95% 02/27/2024 11:30 AM HOG SAWYER Inhaled Oxygen Concentration - - Weight 92.4 kg (203 lb 9.6 oz) 06/17/2024 1:18 P M HOG SAWYER Height 172.7 cm (5' 8 ) 06/17/2024 1:18 PM HOG SAWYER Body Mass Index 30.96 06/17/2024 1:18 PM HOG SAWYER Results * (ABNORMAL) eGFR (07/09/2024 10:04 AM CDT) eGFR 39(L) >=60 mL/min/1. 73 m2 Comment: Interpretive Data Reference Interval Normal >/= 90 mL/min/1.73m2 Mildly decreased* 60 - 89 mL/min/1.73m2 Mildly to moderately decreased 45 - 59 mL/min/1.73m2 Moderately to severely decreased 30 - 44 mL/min/1.73m2 Severely decreased 15 - 29 mL/min/1.73m2 Kidney Failure < 15 mL/min/1.73m2 *Relative to young adult level Estimated glomerular filtration rate is determined by the 2020 CKD-EPI equation recommended by the National Kidney Foundation (A Unifying Approach to GFR Estimation: Recommendations of the NKF-ASK Task Force on Reassessing the Inclusion of Race in Diagnosing Kidney Disease, JASN 2021). The CKD-EPI equation should not be used for patients with unstable renal function and has not been validated in children and those over 70. Current interpretive data was last reviewed 2021. Testing performed by: [address] [id number] Blood 07/09/2024 10:0 4 AM CDT 07/09/2024 1:21 PM CDT Sanford Mcduffie MD LAB BLOOD ORDERABLES Final R esult Performing Organization Address [facility] Co de Phone Number SHONA FRY (MEDFORD) 1 [facility] [place] [address] * Protein / creatinine ratio, urine, random (07/09/2024 10:04 AM CDT) Protein, ur, quant 16.4 mg/dL Comment: Interpretive Data No reference range established. Current interpretive data was last revised 2018. Testing performed by: [facility], [address] [place] [address]., [id number] Creatinine Ur 182.8 mg/dL SHONA FRY (PAM) Comment: Interpretive Data No reference range established. Current interpretive data was last revised 2018. Testing performed by: [facility], [address] [place] [address]., [id number] Protein/creatinin e ratio 89.7 0.0 - 180.0 mg/g CR SHONA FRY (PAM) Comment:Testing performed by : [address] [address] Urine 07/09/2024 10:0 4 AM CDT 07/09/2024 10:05 AM CDT Sanford Mcduffie MD LAB URINE ORDERABLES Final R esult Performing Organization Address [facility] Co de Phone Number SHONA FRY (PAM) 1 [facility] [place] [address] * Vitamin D 25 hydroxy (07/09/2024 10:04 AM CDT) Pathologist [facility] Vitamin D 25-OH 72 30 - 80 ng/mL Comment:Testing performed by : [facility], [address] [place] [address], [id number] Blood 07/09/2024 10:0 4 AM CDT 07/09/2024 10:04 AM CDT Sanford Mcduffie MD LAB BLOOD ORDERABLES Final R esult [facility] (PAM) 1 [facility] Department [place] [address] * (ABNORMAL) CBC without differential (07/09/2024 10:04 AM CDT) [facility] WBC 7.6 3.8 - 9.9 K/cumm Comment:Testing performed by : [facility], [address] [place] [address], [id number] Hgb 12.3(L) 13.0 - 17.5 g/dL [facility] (PAM) Comment:Testing performed by : [address], [address] Hct 40.4 38.9 - 50.3 % [facility] (PAM) Comment:Testing performed by : [address], [address] Plt 173 150 - 400 K/cumm [facility] (PAM) Comment:Testing performed by : [address], [address] MPV 11.8 9.1 - 12.3 fL [facility] (PAM) Comment:Testing performed by : [address], [address] RBC 4.62 4.30 - 5.80 M/cumm [facility] (PAM) Comment:Testing performed by : [address], [address] MCV 87.4 81.3 - 96.4 fL [facility] (PAM) Comment:Testing performed by : [address], [address] MCH 26.6(L) 27.1 - 33.3 pg [facility] (PAM) Comment:Testing performed by : [facility], [address] [place] [address], [id number] MCHC 30.4(L) 32.3 - 35.7 g/dL SHONA FRY (PAM) Comment:Testing performed by : [facility], [address] [place] [address], [id number] RDW CV 15.7(H) 11.1 - 14.9 % SHONA FRY (PAM) Comment:Testing performed by : [facility], [address] [place] [address], [id number] RDW SD 49.9(H) 35.7 - 48.1 fL SHONA FRY (PAM) Comment:Testing performed by : [facility], [address] [place] [address], [id number] NRBC abs 0.00 0.00 - 0.01 K/cumm SHONA FRY (PAM) Comment:Testing performed by : [facility], [address] [place] [address], [id number] Blood 07/09/2024 10:0 4 AM CDT 07/09/2024 10:04 AM CDT Snaford Mcduffie MD LAB BLOOD ORDERABLES Final R esult Performing Organization Address City/[facility]/ZIP Co de Phone Number SHONA FRY (MEDFORD) 1 [facility] [place] [address] * Uric acid (07/09/2024 10:04 AM CDT) Uric acid 5.0 3.0 - 8.0 mg/dL Comment:Testing performed by : [facility], [address] [place] [address], [id number] Blood 07/09/2024 10:0 4 AM CDT 07/09/2024 10:05 AM CDT Sanford Mcduffie MD LAB BLOOD ORDERABLES Final R esult SHONA FRY (MEDFORD) 1 [facility] [place] [address] * PTH (07/09/2024 10:04 AM CDT) PTH 65 15 - 65 pg/mL Comment:Testing performed by : [address], [address] Blood 07/09/2024 10:0 4 AM CDT 07/09/2024 10:05 AM CDT Sanford Mcduffie MD LAB BLOOD ORDERABLES Final R esult [facility] (PAM) 1 [facility] Department [place] [address] * (ABNORMAL) Renal function panel (07/09/2024 10:04 AM CDT) Pathologist [facility] Sodium 145 135 - 145 mmol/L Comment:Testing performed by : [address], [address] Potassium, pl 4.2 3.3 - 4.9 mmol/L [facility] (PAM) Comment:Testing performed by : [address], [address] Chloride 111(H) 97 - 110 mmol/L [facility] (PAM) Comment:Testing performed by : [address], [address] CO2 26 22 - 32 mmol/L [facility] (PAM) Comment:Testing performed by : [address], [address] Anion gap 8 2 - 15 mmol/L [facility] (PAM) Comment:Testing performed by : [address], [address] BUN 37(H) 6 - 25 mg/dL [facility] (PAM) Comment:Testing performed by : [address], [address] Creatinine 1.76(H) 0.80 - 1.30 mg/dL [facility] (PAM) Comment:Testing performed by : [address], [address] Glucose 98 70 - 199 mg/dL [facility] (PAM) Comment: Interpretive Data Fasting glucose >/= 126 mg/dl is diagnostic for diabetes. Fasting is defined as no caloric intake for at least 8 hours. Fasting glucose between 100 mg/dl to 125 mg/dl is diagnostic of prediabetes. In a patient with classic symptoms of hyperglycemia or hyperglycemic crisis, a random glucose >/= 200 mg/dl is diagnostic for diabetes. In the absence of unequivocal hyperglycemia, results should be confirmed by repeat testing. The classification and Diagnosis of Diabetes Diabetes Care 2021; 46: S19-S40. Current interpretive data was last revised 2022. Testing performed by: [facility], [address] [place] [address]., [id number] Calcium 10.0 8.5 - 10.3 mg/dL SHONA FRY (PAM) Comment:Testing performed by : [address] [address] Phosphorus, pl 3.7 2.3 - 4.5 mg/dL SHONA FRY (PAM) Comment:Testing performed by : [facility], [address] [place] [address], [id number] Albumin 3.9 3.5 - 5.0 g/dL [facility] (PAM) Comment:Testing performed by : [facility], [address] [place] [address]., [id number] Blood 07/09/2024 10:0 4 AM CDT 07/09/2024 10:05 AM CDT Sanford Mcduffie MD LAB BLOOD ORDERABLES Final R esult SHONA FRY ([place]) 1 [facility] Department [place] [address] * Vitamin D 25 hydroxy (06/18/2024 10:33 AM HOG SAWYER) [facility] Vitamin D 25-OH 63 30 - 80 ng/mL Comment:Testing performed by : [address], [address] Blood 06/18/2024 10:3 3 AM HOG SAWYER 06/18/2024 6:40 PM HOG SAWYER Venita Granda DNP LAB BLOOD ORDERABLES Final Resu lt SHONA FRY PAM 1 [facility] Department [place] [address] * Dexa TBS Axial Skeleton Bone Density 1 or more sites (06/17/2024 12:57 PM HOG SAWYER) Anatomical Region Laterality Modality Wrist, Body N/A Radiographic Jenna ging Narrative 06/17/2024 1:15 PM [facility] Patient Name: Ravinder Chapman Date of : 1945 Date of scan: 06/17/2024 Bone mineral density was performed on a [employer] Discovery Densitometer. Based on machine cross-calibration and precision studies the least significant changes of this densitometer is 0.024 g/cm2 at the spine, 0.020 g/cm2 at the total proximal femur, and 0.014g/cm2 at the forearm. HISTORY: This is a 78 y.o. male with a history of asthma, osteoporosis, and vitamin D deficiency. He reports that he quit smoking about 27 years ago. His smoking use included cigarettes. He started smoking about 58 years ago. He has a 30.6 pack-year smoking history. He has never used smokeless tobacco. Currently on treatment with vitamin D and anticoagulants, previously treated with zoledronic acid (Reclast), and current complaint of leg pain. INDICATIONS: Vitamin D deficiency, history of osteoporosis, and male over age 70. FINDINGS: BONE MINERAL DENSITY OF THE LUMBAR SPINE Bone Mineral Density (BMD) of the lumbar spine was measured from L1-L4 and the average density was calculated to be 0.945 gm/cm2. This corresponds to a T-score (standard deviations from the mean of young adults) of -1.3. When compared to the previous study of 01/31/2023 there has been no significant changes in bone density. BONE MINERAL DENSITY OF THE PROXIMAL FEMUR Bone Mineral Density (BMD) of the left hip total was found to be 0.839 gm/cm2. This corresponds to a T-score standard deviations from the mean of young adults of -1.3. Femoral neck is 0.612 gm/cm2 with a T-score (standard deviations from the mean of young adults) of -2.3. When compared to the previous study of 01/31/2023 there has been no significant changes in bone density. BONE MINERAL DENSITY OF THE FOREARM Bone Mineral density (BMD) of the right proximal 1/3 of the radius measures 0.753 gm/cm2. This corresponds to a T-score (standard deviations from the mean of young adults) of -1.2. When compared to the previous study of 01/31/2023 there has been no significant changes in bone density. A forearm bone density study was performed in addition to the routine study due to the need to provide a comparison to the previous exam. SUMMARY: Bone mineral density shows evidence of low bone mass at the lumbar spine, proximal femur, and forearm and moderately increased fracture risk (Osteopenia). There has been no significant changes in bone density since previous measurement. The lumbar spine Trabecular Bone Score is 1.264 which suggests partially degraded bone microarchitecture compared to the general population. Final decisions regarding diagnostic or therapeutic recommendations should include BMD, TBS, additional clinical risk factors as well the clinical context of the patient. Please see attached TBS results for further details. ADDITIONAL COMMENTS: Postmenopausal Women and Men Over 50: Diagnostic criteria: Osteoporosis: BMD at or below -2.5 T-score; Osteopenia (low bone mass): BMD between -1.0 and -2.5 T-score. If the patient has a history of a fragility fracture, a fracture that occurred with trauma equivalent to a fall from a standing position or less, then the diagnosis is osteoporosis regardless of bone density. The history and data sections of the bone mineral density scan were prepared by Elin Rainey (R)([facility]) who is accredited by the International Society of Clinical Densitometry. The overall patient assessment and scan interpretation were performed by Erin Long M.D. who is certified by the International Society of Clinical Densitometry. [id number] Venita Granda [facility] DXA PROCEDURES Final Result * US Abdominal Aortic Aneurysm Screening (02/12/2024 9:07 AM CDT) Anatomical Region Laterality Modality Abdomen Ultrasound 02/12/2024 9:46 AM CDT Impressions 02/12/2024 9:46 AM CDT There is no abdominal aortic aneurysm. Electronically signed by: Lani Simmons M.D. Narrative 02/12/2024 9:46 AM CDT EXAMINATION: US ABDOMINAL AORTIC ANEURYSM SCREENING HISTORY: The patient is a 78-year-old male who is having screening for abdominal aortic aneurysm. TECHNIQUE: Transverse and sagittal images were obtained through the abdominal aorta with grayscale imaging. FINDINGS: The proximal abdominal aorta measures 2.1 x 2.2 cm in diameter. The mid abdominal aorta measures 1.5 x 1.5 cm in diameter. The distal abdominal aorta measures 1.5 x 1.5 cm in diameter. Procedure Note Lani Simmons MD - 02/12/2024 EXAMINATION: US ABDOMINAL AORTIC ANEURYSM SCREENING HISTORY: The patient is a 78-year-old male who is having screening for abdominal aortic aneurysm. TECHNIQUE: Transverse and sagittal images were obtained through the abdominal aorta with grayscale imaging. FINDINGS: The proximal abdominal aorta measures 2.1 x 2.2 cm in diameter. The mid abdominal aorta measures 1.5 x 1.5 cm in diameter. The distal abdominal aorta measures 1.5 x 1.5 cm in diameter. IMPRESSION: There is no abdominal aortic aneurysm. Electronically signed by: Lani Simmons M.D. Reymundo Bloom MD [facility] [place] US PROCEDURES Final Result * COLONOSCOPY (03/28/2021 7:23 AM [facility]) Anatomical Region Laterality Modality Other Narrative Procedure Note Roe Dior MD - 03/28/2021 7:23 AM CST [facility] Patient Name: Ravinder Chapman Procedure Date: 03/28/2021 7:23 AM Date of : 1945 Admit Type: Outpatient Age: 75 Gender: Male Attending MD: Roe Dior M.D. Room: [facility] ENDOSCOPY ROOM 2 Note Status: Finalized Patient Profile: Refer to note in patient chart for documentation of history and physical. Procedure: Colonoscopy Indications: High risk colon cancer surveillance: Personalhistory of colonic polyps, Last colonoscopy: March2017 Referring MD: Nick Almanzar M.D. Providers: Roe Dior M.D. Impression: - Hemorrhoids found on perianal exam. - One 5 mm polyp in the transverse colon, removedwith a cold snare. Resected and retrieved. - Diverticulosis in the sigmoid colon. - The examination was otherwise normal. Recommendation: - Discharge patient to home. - Resume previous diet. - Continue present medications. - Await pathology results. - Repeat colonoscopy in 5 years for surveillance. - Return to primary care physician as previously scheduled. Medicines: Propofol per Anesthesia Complications: No immediate complications. Estimated Blood Loss: Estimated blood loss: none. Procedure: Pre-Anesthesia Assessment: - This assessment was completed [Time ofAssessment] prior to the administration of sedation. The benefits, risks and alternatives of theprocedure and sedation were discussed and informed consentwas obtained. All questions were answered. Please referto the signed informed consent document in the medical record. The bowel preparation used was Miralax via single dose instruction. The bowel preparation used was bisacodyl tablets via single dose instruction.The scope was passed under direct vision. TheColonoscope [id number] was introduced through the anus and advanced to the the cecum, identified by appendiceal orifice and ileocecal valve. The colonoscopy was performed without difficulty. The patient tolerated the procedure well. The qualityof the bowel preparation was adequate to identifypolyps 6 mm and larger in size. Findings: Hemorrhoids were found on perianal exam. A 5 mm polyp was found in the transverse colon. The polyp wassessile. The polyp was removed with a cold snare. Resection and retrieval were complete. Verification of patient identification for the specimen was done by the physician and nurse using the patient's name and birthdate. Estimated blood loss was minimal. Multiple small and large-mouthed diverticula were found in thesigmoid colon. The exam was otherwise without abnormality. Electronically signed by Roe Dior M.D. Roe Dior M.D. 03/28/2021 9:09:32 AM Number of Addenda: 0 Note Initiated On: 03/28/2021 7:23 AM Procedure Code(s): --- Professional --- 61990, Colonoscopy, flexible; with removal of tumor(s), polyp(s), or other lesion(s) by snare technique Diagnosis Code(s): --- Professional --- K57.30, Diverticulosis of large intestine without perforation orabscess without bleeding K63.5, Polyp of colon K64.9, Unspecified hemorrhoids Z86.010, Personal history of colonic polyps CPT copyright 2019 [employer] [place] [employer]. All rights reserved. The codes documented in this report are preliminary and upon academic counselor reviewmay be revised to meet current compliance requirements. Recognized by the [place] [employer] for promoting quality in endoscopy us Roe Dior MD ENDOSCOPY PROCEDURES Final Re sult * Hepatitis C antibody (01/19/2020 2:11 PM CDT) Hep C Ab Nonreactive Nonreactive [facility] Comment: Interpretive Data Nonreactive: Antibodies to HCV not detected. Does NOT exclude the possibility of recent exposure to HCV. Equivocal: Equivocal for HCV antibodies. Supplemental molecular testing will be automatically performed to determine infection status in accordance with current CDC screening recommendations. Reactive: Positive for HCV antibodies. This may represent current or past HCV infection. Supplemental molecular testing will be automatically performed to determine current infection status in accordance with current CDC screening recommendations. Interpretive data was last revised on 2019. Blood specimen (specimen) 01/19/2020 2:11 PM CDT 01/19/2020 7:17 PM CDT Dana Hernandez NP LAB MICROBIOLOGY - GENERAL OR DERABLES Final Result [facility] [id number] [address] [place] [address] from Last 3 Months or Most Recently Relevant to Health Maintenance
--- OUTSIDE RECORDS SUMMARY | 2024-08-02 11:08 | XMS_ITS | Referral Summary ---
Author Organization [facility] Address [address] [place] [address] Care Team Providers Care Inspector Metal Can Name Role Phone Luke Santiago MD Unavailable Michael Lynch MD Unavailable Nick Almanzar MD Primary Care Provider [phone] Jony Wilcox MD Unavailable [phone] Maria A Seymour MD Unavailable [phone] Alex Urbina MD Unavailable Vanessa Darling NP Unavailable Encounters Date Type Department Care Team Description 07/09/2024 9:55 AM CDT Lab [facility] [address] [place] [facility] [place] [address] 06/19/2024 Results Follow-Up [address] [place] [address] Venita Granda DNP 06/18/2024 10:35 AM LOGISTICS PROGRAM MANAGER Lab [facility] [address] [place] [address] Age-related osteoporosis without current pathological fracture; Vitamin D deficiency 06/17/[address] [place] [address] Venita Granda DNP 06/17/2024 1:10 PM LOGISTICS PROGRAM MANAGER Clinical Support [address] [place] [address] Age-related osteoporosis without current pathological fracture 06/17/2024 1:40 PM LOGISTICS PROGRAM MANAGER Office Visit [address] [place] [address] Venita Granda DNP Age-related osteoporosis without current pathological fracture (Primary Dx); Vitamin D deficiency 06/02/2024 Telephone [facility] [address] [address] Nick Almanzar MD Reschedule 05/20/2024 Orders Only [address] 5[address] [place] [address] [place] [address] Venita Granda DNP Age-related osteoporosis without current pathological fracture (Primary Dx) from Last 3 Months Allergies Active Allergy Reactions Criticality Noted Date [...] mg SL tabletIndications: Coronary artery disease of [place] artery of [place] heart with stable angina pectoris Place 1 [...] tube 06/21/22 Resumed TF via J tube 8 and initially tolerating. Animal Biologist re advanced TFlushes & spot bolus IVF [...] via J tube 06/21 and initially tolerating. Animal Biologist re advanced TFlushes & spot bolus IVF to match losses. Continue Strict aspiration precautions. - KUB recently NAD, no constipation. Recurrent emesis [...] leukocytosis. Assessment & Plan (06/24/2022 5:08 PM LOGISTICS PROGRAM MANAGER): Per nursing over last few weeks has [...] Resumed TF via J tube 38 and tolerating. Animal Biologist re TFlushes. Continue Strict aspiration precautions. - ANIA recently NAD, no constipation. Assessment & Plan (06/23/2022 4:00 PM LOGISTICS PROGRAM MANAGER): Per nursing over last few weeks has had intermittent vomiting. - Started bolus TF to see if this helps. Recurrence with suspected aspiration 3/8 on bolus feeds based on suctioning tube feeds from mouth. CXR neg for PNA. Added reglan 5mg q8hrs for GERD. D/w IR and converted G to GJ tube 06/21/22 Resumed TF via J tube 38. Continue Strict aspiration precautions. - ANIA recently NAD, no constipation. Assessment & Plan (06/22/2022 4:16 PM LOGISTICS PROGRAM MANAGER): Per nursing over last few weeks has had intermittent vomiting. - Started bolus TF to see if this helps. Rrecurrence with suspected aspiration 3/8 on bolus feeds. CXR neg for PNA. Add reglan q8hrs for GERD D/w IR and converted G to GJ tube 06/21/22 Resumed TF via J tube 38. Add low dose reglan for reflux 3/8. Continue Strict aspiration precautions. - Cont to observe. - ANIA recently [place]. Assessment & Plan (06/21/2022 3:29 PM LOGISTICS PROGRAM MANAGER): Per nursing over last few weeks has [...] NAD. Assessment & Plan (06/20/2022 6:17 PM LOGISTICS PROGRAM MANAGER): Per nursing over last few weeks has [...] change noted with treatment with IV Ceftriaxone (32-c). Urine Cx growing Klebsiella variicola. Sensitivities include ceftriaxone. Completed 7 day course 06/22/22. Checked for urinary retention, bladder scan negative. Assessment & Plan (06/25/2022 10:21 AM CDT): UA on 06/15 with nitrates and >50 WBC. No urine cultures with MDR. Started IV ceftriaxone. Might be adding some component to the AMS, but no change noted with treatment with IV Ceftriaxone (32-c). Urine Cx growing Klebsiella variicola. Sensitivities include ceftriaxone. Completed 7 day course 06/22/22. Checked for urinary retention, bladder scan negative. Assessment & Plan (06/24/2022 5:06 PM LOGISTICS PROGRAM MANAGER): UA on 3/2 with nitrates and >50 WBC. No urine cultures with MDR. Started IV ceftriaxone. Might be adding some component to the AMS, but no change noted with treatment with IV Ceftriaxone (3/2-c). Urine Cx growing Klebsiella variicola. Sensitivities include ceftriaxone. Pt completed 7 day course 06/22/22. Checked for urinary retention, bladder scan negative. Assessment & Plan (06/23/2022 3:59 PM LOGISTICS PROGRAM MANAGER): UA on 32 with nitrates and >50 WBC. No urine cultures with MDR. Started IV ceftriaxone. Might be adding some component to the AMS, but no change noted with treatment with IV Ceftriaxone (3/2-c). Urine Cx growing Klebsiella variicola. Sensitivities include ceftriaxone. Pt completed 7 day course 06/22/22. Checked for urinary retention, bladder scan negative. Assessment & Plan (06/22/2022 4:16 PM LOGISTICS PROGRAM MANAGER): UA on 3 with nitrates and >50 WBC. No urine cultures with MDR. Started IV ceftriaxone. Might be adding some component to the AMS, but no change noted with treatment with IV Ceftriaxone (3/2-c). Pt completed 7 day course 06/22/22. Checked for urinary retention, bladder scan negative. -Urine Cx growing Klebsiella variicola. Sensitivities back. S to CTX Assessment & Plan (06/21/2022 3:31 PM LOGISTICS PROGRAM MANAGER): UA on 3/2 with nitrates and >50 WBC. No urine cultures with MDR. Started IV ceftriaxone. Might be adding some component to the AMS. -Ceftriaxone 3/2- completes 7 day course on 06/22/22. Check for urinary retention, bladder scan negative. -Urine Cx growing Klebsiella variicola. Sensitivities back. S to CTX Assessment & Plan (06/19/2022 10:12 PM LOGISTICS PROGRAM MANAGER): UA on 3/2 with nitrates and >50 WBC. No urine cultures with MDR. Will start him on ceftriaxone while urine culture results. Might be adding some component to the AMS. -Ceftriaxone 3/2- complete 7 day course. Check for urinary retention. -Urine Cx growing Klebsiella variicola. Sensitivities back. S to CTX Assessment & Plan (06/16/2022 12:04 PM LOGISTICS PROGRAM MANAGER): UA on 06/15 with nitrates and >50 WBC. No urine cultures with MDR. Will start him on ceftriaxone while urine culture results. Might be adding some component to the AMS. -Ceftriaxone 06/15- -Urine Cx growing Klebsiella variicola. Sensitivities pending. Assessment & Plan (06/15/2022 1:24 PM LOGISTICS PROGRAM MANAGER): UA on 06/15 with nitrates and >50 WBC. No urine cultures with MDR. Will start him on ceftriaxone while urine culture results. -Ceftriaxone 06/15- Anemia 05/26/2022 Assessment & Plan (12/20/2022 1:08 [...] unremarkable. Assessment & Plan (06/24/2022 5:03 PM LOGISTICS PROGRAM MANAGER): Normocytic. AOCD pattern on labs. Likely from GIN, serious illness, frequent blood draws, etc. -Intermittently requiring PRBC last 06/03/22. F/u Hb 7.8, limit routine labs. No evidence of hematuria, melena or hematochezia. Assessment & Plan (06/23/2022 3:48 PM LOGISTICS PROGRAM MANAGER): Normocytic. AOCD pattern on labs. Likely from GIN, serious illness, frequent blood draws, etc. -Intermittently requiring PRBC last 06/03/22. F/u Hb 7.3, limit routine labs. No evidence of hematuria, melena or hematochezia. Assessment & Plan (06/22/2022 4:08 PM LOGISTICS PROGRAM MANAGER): Normocytic. AOCD pattern on labs. Likely from GIN, serious illness, frequent blood draws, etc. -Intermittently requiring PRBC last 06/03/22. F/u Hb 7.3, limit routine labs. No evidence of hematuria, melena or hematochezia. Assessment & Plan (06/21/2022 3:23 PM LOGISTICS PROGRAM MANAGER): Normocytic. AOCD pattern on labs. Likely from GIN, serious illness, frequent blood draws, etc. -Intermittently requiring PRBC last 06/03/22. F/u Hb 7.5, limit routine labs. Assessment & Plan (06/20/2022 6:09 PM LOGISTICS PROGRAM MANAGER): Normocytic. AOCD pattern on labs. Likely from GIN, serious illness, frequent blood draws, etc. -Intermittently requiring PRBC last 06/03/21. F/u Hb 7.5, limit routine labs. Assessment & Plan (06/16/2022 11:57 AM LOGISTICS PROGRAM MANAGER): Normocytic. AOCD pattern on labs. Likely from GIN, serious illness, frequent blood draws, etc. -Intermittently requiring PRBC last 06/03/21. Assessment & Plan (06/15/2022 1:22 PM LOGISTICS PROGRAM MANAGER): Normocytic. AOCD pattern on labs. Likely from GIN, serious illness, frequent blood draws, etc. -Intermittently requiring PRBC last 06/03/21. Assessment & Plan (06/14/2022 2:26 PM LOGISTICS PROGRAM MANAGER): Normocytic. AOCD pattern on labs. Likely from GIN, serious illness, frequent blood draws, etc. -Intermittently requiring PRBC last 06/03/21. F/u Hb 8.1. Assessment & Plan (06/13/2022 4:10 PM LOGISTICS PROGRAM MANAGER): Normocytic. AOCD pattern on labs. Likely from GIN, serious illness, frequent blood draws, etc. -Intermittently requiring PRBC last 06/03/21. F/u Hb 8.1. Assessment & Plan (06/12/2022 6:17 PM LOGISTICS PROGRAM MANAGER): Normocytic. AOCD pattern on labs. Likely from GIN, serious illness, frequent blood draws, etc. - intermittently requiring PRBC last 06/03/21. F/u Hb 8.1. Billing statement. I have reviewed current Hb 8.5, remains stable post recent transfusion with HD stability. Plan to limit blood draws, monitor serial counts for additional needs. Transfuse PRN Hb<7. Assessment & Plan (06/11/2022 4:33 PM LOGISTICS PROGRAM MANAGER): Normocytic. AOCD pattern on labs. Likely from GIN, serious illness, frequent blood draws, etc. - intermittently requiring PRBC last 06/03/21. F/u Hb 8.1. Billing statement. I have reviewed current Hb 8.5, remains stable post recent transfusion with HD stability. Plan to limit blood draws, monitor serial counts for additional needs. Transfuse PRN Hb<7 Assessment & Plan (06/10/2022 3:23 PM LOGISTICS PROGRAM MANAGER): Normocytic. AOCD pattern on labs. Likely from GIN, serious illness, frequent blood draws, etc. - intermittently requiring PRBC last 06/03/21. F/u Hb 8.1. Billing statement. I have reviewed current Hb 8.1, remains stable post recent transfusion with HD stability. Plan to limit blood draws, monitor serial counts for additional needs. Transfuse PRN Hb<7 Assessment & Plan (06/10/2022 9:24 AM LOGISTICS PROGRAM MANAGER): Normocytic. AOCD pattern on labs. Likely from GIN, serious illness, frequent blood draws, etc. - intermittently requiring PRBC last 06/03/21. F/u Hb 8.1. Billing statement. I have reviewed current Hb 8.1, remains stable post recent transfusion with HD stability. Plan to limit blood draws, monitor serial counts for additional needs. Transfuse PRN Hb<7 Assessment & Plan (06/08/2022 4:02 PM LOGISTICS PROGRAM MANAGER): Normocytic. AOCD pattern on labs. Likely from GIN, serious illness, frequent blood draws, etc. - intermittently requiring PRBC last 06/03/21. F/u Hb 8.1. Billing statement. I have reviewed current Hb 8.1, remains stable post recent transfusion with HD stability. Plan to limit blood draws, monitor serial counts for additional needs. Assessment & Plan (06/07/2022 11:00 AM LOGISTICS PROGRAM MANAGER): Normocytic. AOCD pattern on labs. Likely from GIN, serious illness, frequent blood draws, etc. - intermittently requiring PRBC last 06/03/21 Billing statement. I have reviewed current Hb 8.1, remains stable post recent transfusion with HD stability. Plan to limit blood draws, monitor serial counts for additional needs. Assessment & Plan (06/06/2022 6:31 PM LOGISTICS PROGRAM MANAGER): Normocytic. 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 - intermittently requiring PRBC last 06/03 Billing statement. I have reviewed current Hb 8.1, remains stable post transfusion. Plan to limit blood draws, monitor serial counts. Assessment & Plan (06/05/2022 2:00 PM LOGISTICS PROGRAM MANAGER): - Normocytic. 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 - intermittently requiring PRBC last 06/03 Assessment & Plan (06/04/2022 11:09 AM LOGISTICS PROGRAM MANAGER): - Normocytic. 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 - f/u CBC today p 1 unit PRBC 06/03 Assessment & Plan (06/03/2022 2:57 PM LOGISTICS PROGRAM MANAGER): - Normocytic. AOCD pattern on labs > Likely from IGN, serious illness, frequent blood draws, etc. - requiring 1 unit PRBC today for slow drop likely AOCD and lab draws Assessment & Plan (06/02/2022 2:26 PM LOGISTICS PROGRAM MANAGER): - Normocytic. 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 - cont to monitor H/H, transfuse for Hb < 7, remains relatively stable but at borderline of requiring PRBC Assessment & Plan (06/01/2022 2:18 PM LOGISTICS PROGRAM MANAGER): - Normocytic. 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 - cont to monitor H/H, transfuse for Hb < 7, remains relatively stable but at borderline of requiring PRBC Assessment & Plan (05/31/2022 2:57 PM LOGISTICS PROGRAM MANAGER): - Normocytic. 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 - cont to monitor H/H, transfuse for Hb < 7 Assessment & Plan (05/30/2022 2:03 PM LOGISTICS PROGRAM MANAGER): - Normocytic. 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 - cont to monitor H/H, transfuse for Hb < 7 Assessment & Plan (05/29/2022 3:13 PM LOGISTICS PROGRAM MANAGER): Normocytic. B12, folate normal. Likely from GIN, serious illness, frequent blood draws, etc. Drop over last 24 hrs likely dilutional due to IVF. No e/o bleeding - cont to monitor H/H, transfuse for Hb < 7 - ferritin high, c/w anemia of chronic dz Assessment & Plan (05/28/2022 1:53 PM LOGISTICS PROGRAM MANAGER): Normocytic. B12, folate normal. Likely from GIN, serious illness, frequent blood draws, etc. Drop over last 24 hrs likely dilutional due to IVF. No e/o bleeding - cont to monitor H/H, transfuse for Hb < 7 - ferritin high, c/w anemia of chronic dz Assessment & Plan (05/27/2022 3:53 PM LOGISTICS PROGRAM MANAGER): Normocytic. B12, folate normal. Likely from GIN, serious illness, frequent blood draws, etc. Drop over last 24 hrs likely dilutional due to IVF. No e/o bleeding - cont to monitor H/H, transfuse for Hb < 7 - ferritin high, c/w anemia of chronic dz Assessment & Plan (05/26/2022 1:22 PM LOGISTICS PROGRAM MANAGER): Normocytic. B12, folate normal. Likely from GIN, [...] -Apparently can get denosumab but would need NUCLEAR AUXILIARY OPERATOR approval. Appreciate nephrology help sensipar not an [...] -Apparently can get denosumab but would need NUCLEAR AUXILIARY OPERATOR approval. Appreciate nephrology help sensipar not an [...] status. Assessment & Plan (06/24/2022 5:06 PM LOGISTICS PROGRAM MANAGER): Normocalcemic on arrival. Uncorrected Ca as high [...] -Apparently can get denosumab but would need NUCLEAR AUXILIARY OPERATOR approval. Appreciate nephrology help sensipar not an [...] am. Assessment & Plan (06/23/2022 3:58 PM LOGISTICS PROGRAM MANAGER): Normocalcemic on arrival. Uncorrected Ca as high [...] -Apparently can get denosumab but would need NUCLEAR AUXILIARY OPERATOR approval. Appreciate nephrology help sensipar not an [...] 06/23. Assessment & Plan (06/22/2022 4:15 PM LOGISTICS PROGRAM MANAGER): Normocalcemic on arrival. Uncorrected Ca as high [...] -Apparently can get denosumab but would need NUCLEAR AUXILIARY OPERATOR approval. Appreciate nephrology help sensipar not an [...] iCa. Assessment & Plan (06/21/2022 3:27 PM LOGISTICS PROGRAM MANAGER): Normocalcemic on arrival. Uncorrected Ca as high [...] -Apparently can get denosumab but would need NUCLEAR AUXILIARY OPERATOR approval. Appreciate nephrology help sensipar not an [...] response. Assessment & Plan (06/20/2022 6:15 PM LOGISTICS PROGRAM MANAGER): Normocalcemic on arrival. Uncorrected Ca as high [...] -Apparently can get denosumab but would need NUCLEAR AUXILIARY OPERATOR approval. Appreciate nephrology help sensipar not an [...] approval. Assessment & Plan (06/16/2022 11:57 AM LOGISTICS PROGRAM MANAGER): Normocalcemic on arrival. Uncorrected Ca as high [...] Recommend continued NPO by [facility] 06/08. - Continue water flushes per tube (300 q4). - Ca++ increased today: 12.1 (11.9). - if Cr continues to downtrend may be able to consider bisphosphonate. 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 - Cosyntropin test within normal limits, AI ruled out. - 1L of IVF today Assessment & Plan (06/15/2022 1:22 PM LOGISTICS PROGRAM MANAGER): Normocalcemic on arrival. Uncorrected Ca as high [...] low level hyperCa. Recommend continued NPO by [facility] 06/08. - Continue water flushes per tube (300 q4). - Ca++ increased today: 12.1 (11.9). - if Cr continues to downtrend may be able to consider bisphosphonate. 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 - Cosyntropin test within normal limits, AI ruled out. Assessment & Plan (06/14/2022 2:26 PM LOGISTICS PROGRAM MANAGER): Normocalcemic on arrival. Uncorrected Ca as high [...] low level hyperCa. Recommend continued NPO by [facility] 06/08. - Continue water flushes per tube (300 q4). - Ca++ increased today: 12.1 (11.9). - if Cr continues to downtrend may be able to consider bisphosphonate. 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 Recommending ordering cosyntropin to rule out adrenal insufficiency. Assessment & Plan (06/13/2022 4:03 PM LOGISTICS PROGRAM MANAGER): Normocalcemic on arrival. Uncorrected Ca as high [...] low level hyperCa. Recommend continued NPO by [facility] 06/08. - Continue water flushes per tube (300 q4). - Ca++ decreased today: 11.9 (12.8). - if Cr continues to downtrend may be able to consider bisphosphonate. - Continue to monitor Assessment & Plan (06/12/2022 6:20 PM LOGISTICS PROGRAM MANAGER): Normocalcemic on arrival. Uncorrected Ca as high [...] low level hyperCa. Recommend continued NPO by [facility] 06/08. - cont water per tube (300 [...] supplementation. Assessment & Plan (06/11/2022 4:35 PM LOGISTICS PROGRAM MANAGER): Normocalcemic on arrival. Uncorrected Ca as high [...] low level hyperCa. Recommend continued NPO by [facility] 06/08. - cont water per tube (300 [...] supplementation. Assessment & Plan (06/10/2022 3:28 PM LOGISTICS PROGRAM MANAGER): Normocalcemic on arrival. Uncorrected Ca as high [...] low level hyperCa. Recommend continued NPO by [facility] 06/08. - cont water per tube (300 [...] supplementation. Assessment & Plan (06/10/2022 9:27 AM LOGISTICS PROGRAM MANAGER): Normocalcemic on arrival. Uncorrected Ca as high [...] level hyperCa. Advanced tolerance of PO by [facility] 06/08. - cont water per tube (300 [...] and f/u lab 10- with stabilization. Plan OP consideration of sensipar 30mg PO daily and to continue hydration per tube, serial calcium monitoring, & avoid supplementation. Assessment & Plan (06/08/2022 4:09 PM LOGISTICS PROGRAM MANAGER): Normocalcemic on arrival. Uncorrected Ca as high [...] level hyperCa. Advanced tolerance of PO by [facility] 06/08. Start sensipar and monitor response. - [...] have reviewed hypercalcemia trends and f/u lab 01-24 with stabilization. Plan sensipar 30mg PO daily and to continue hydration per tube, serial calcium monitoring, & avoid supplementation. Assessment & Plan (06/07/2022 11:04 AM LOGISTICS PROGRAM MANAGER): Normocalcemic on arrival. Uncorrected Ca as high [...] and f/u lab 10-11 with stabilization. Plan to continue hydration per tube, serial calcium monitoring, & avoid supplementation. Assessment & Plan (06/06/2022 6:40 PM LOGISTICS PROGRAM MANAGER): Normocalcemic on arrival. Uncorrected Ca as high [...] supplementation. Assessment & Plan (06/05/2022 1:59 PM LOGISTICS PROGRAM MANAGER): - Normocalcemic on arrival. Uncorrected Ca as [...] now Assessment & Plan (06/04/2022 11:09 AM LOGISTICS PROGRAM MANAGER): - Normocalcemic on arrival. Uncorrected Ca as [...] considered Assessment & Plan (06/03/2022 2:56 PM LOGISTICS PROGRAM MANAGER): - Normocalcemic on arrival. Uncorrected Ca as [...] 11.4 Assessment & Plan (06/02/2022 2:25 PM LOGISTICS PROGRAM MANAGER): - Normocalcemic on arrival. Uncorrected Ca as [...] IVF Assessment & Plan (06/01/2022 2:18 PM LOGISTICS PROGRAM MANAGER): - Normocalcemic on arrival. Uncorrected Ca as [...] d/c Assessment & Plan (05/31/2022 2:57 PM LOGISTICS PROGRAM MANAGER): - Normocalcemic on arrival. Uncorrected Ca as [...] stable/downtrending Assessment & Plan (05/30/2022 2:01 PM LOGISTICS PROGRAM MANAGER): - Normocalcemic on arrival. Uncorrected Ca as [...] improve Assessment & Plan (05/29/2022 3:13 PM LOGISTICS PROGRAM MANAGER): - Normocalcemic on arrival. Uncorrected Ca as [...] improve Assessment & Plan (05/28/2022 1:52 PM LOGISTICS PROGRAM MANAGER): - Normocalcemic on arrival. Uncorrected Ca as [...] improve Assessment & Plan (05/27/2022 3:52 PM LOGISTICS PROGRAM MANAGER): - Normocalcemic on arrival. Uncorrected Ca as [...] today Assessment & Plan (05/26/2022 1:19 PM LOGISTICS PROGRAM MANAGER): - Normocalcemic on arrival. Uncorrected Ca as [...] IVF Assessment & Plan (05/27/2022 3:53 PM LOGISTICS PROGRAM MANAGER): - Has been hypo- and hypernatremic during course Sodium now normal, cont to monitor daily BMP Assessment & Plan (05/26/2022 1:19 PM LOGISTICS PROGRAM MANAGER): - Has been hypo- and hypernatremic during course Sodium now normal, cont to monitor daily BMP Cervical stenosis of spine 09/19/2021 Overview (09/19/2021): Added automatically from request for surgery [id number] Assessment & Plan (11/10/2022 9:33 AM CDT): [...] need NSGY clinic OP follow up at [place]; NSGY to arrange; Dr. Casas no longer [...] need NSGY clinic OP follow up at [place]. Surgical incision healed well. No muscular spasticity [...] need NSGY clinic OP follow up at [place]. Surgical incision healed well. No muscular spasticity noted on LE exam. Bilateral strength intact. Therapy per neurosurgery, if able to participate, currently doesn't follow commands. Assessment & Plan (06/24/2022 5:04 PM LOGISTICS PROGRAM MANAGER): Presented for elective C 3-5 ACDF and C3-7 posterior fusion on 03/17/22. Sutures out. NSurg f/u appreciated. Plan MRI c/t spine as above, assess for structural or occult infection (unlikely). Will need NSGY clinic OP follow up at [place]. Surgical incision healed well. No muscular spasticity noted on LE exam. Bilateral strength intact. Therapy per neurosurgery, if able to participate, currently doesn't follow commands. Assessment & Plan (06/23/2022 3:49 PM LOGISTICS PROGRAM MANAGER): Presented for elective C 3-5 ACDF and C3-7 posterior fusion on 03/17/22. Sutures out. NSurg f/u appreciated. Will need NSGY clinic OP follow up at [place]. Surgical incision healed well. No muscular spasticity noted on LE exam. Bilateral strength intact. Therapy per neurosurgery, if able to participate, currently doesn't follow commands. Assessment & Plan (06/22/2022 4:10 PM LOGISTICS PROGRAM MANAGER): Presented for elective C 3-5 ACDF and C3-7 posterior fusion on 03/17/22. Sutures out. Will need NSGY clinic OP follow up at [place]. Surgical incision healed well. No muscular spasticity noted on LE exam. Bilateral strength intact. Therapy per neurosurgery, if able to participate, currently doesn't follow commands. Assessment & Plan (06/21/2022 3:24 PM LOGISTICS PROGRAM MANAGER): Presented for elective C 3-5 ACDF and C3-7 posterior fusion on 03/17/22. Sutures out. Will need NSGY clinic OP follow up at [place]. Surgical incision healed well. No muscular spasticity noted on LE exam. Therapy per neurosurgery, if able to participate. Assessment & Plan (06/20/2022 6:10 PM LOGISTICS PROGRAM MANAGER): Presented for elective C 3-5 ACDF and C3-7 posterior fusion on 03/17/22. Sutures out. Will need NSGY clinic OP follow up at [place]. Surgical incision healed well. No muscular spasticity noted on LE exam. Therapy per neurosurgery, if able to participate. Assessment & Plan (06/16/2022 11:56 AM LOGISTICS PROGRAM MANAGER): Presented for elective C 3-5 ACDF and C3-7 posterior fusion on 03/17/22. Sutures out. Will need NSGY clinic OP follow up at [place]. Surgical incision healed well. No muscular spasticity noted on LE exam. Therapy per neurosurgery, if able to participate. Assessment & Plan (06/15/2022 1:19 PM LOGISTICS PROGRAM MANAGER): Presented for elective C 3-5 ACDF and C3-7 posterior fusion on 03/17/22. Sutures out. Will need NSGY clinic [place] at [place] Surgical incision healed well. No muscular spasticity noted on LE exam. Therapy per neurosurgery, if able to participate. Assessment & Plan (06/14/2022 2:19 PM LOGISTICS PROGRAM MANAGER): Presented for elective C 3-5 ACDF and C3-7 posterior fusion on 03/17/22. Sutures out. Will need NSGY clinic [place] Surgical incision healed well. No muscular spasticity noted on LE exam. Therapy per neurosurgery, if able to participate. Assessment & Plan (06/13/2022 3:58 PM LOGISTICS PROGRAM MANAGER): Presented for elective C 3-5 ACDF and C3-7 posterior fusion on 03/17/22. Sutures out. Will need NSGY clinic [place] Surgical incision healed well. No muscular spasticity noted on LE exam. Therapy per neurosurgery, if able to participate. Assessment & Plan (06/12/2022 6:18 PM LOGISTICS PROGRAM MANAGER): Presented for elective C 3-5 ACDF and C3-7 posterior fusion on 03/17/22. Sutures out. Will need NSGY clinic [place] Surgical incision healed well. No muscular spasticity noted on LE exam. Therapy per neurosurgery, if able to participate. Plan DC to SNF once bed available. Assessment & Plan (06/11/2022 4:33 PM LOGISTICS PROGRAM MANAGER): Presented for elective C 3-5 ACDF and C3-7 posterior fusion on 03/17/22. Sutures out. Will need NSGY clinic [place] Surgical incision healed well. No muscular spasticity noted on exam. Therapy per neurosurgery. Plan DC to SNF once bed available. Assessment & Plan (06/10/2022 3:23 PM LOGISTICS PROGRAM MANAGER): Presented for elective C 3-5 ACDF and C3-7 posterior fusion on 03/17/22. Sutures out. Will need NSGY clinic OP follow up at [place]. Surgical incision healing well. No muscular spasticity noted on exam. Therapy per neurosurgery. Plan DC to SNF once bed available. Assessment & Plan (06/10/2022 9:24 AM LOGISTICS PROGRAM MANAGER): Presented for elective C 3-5 ACDF and C3-7 posterior fusion on 03/17/22. Sutures out. Will need NSGY clinic [place] Surgical incision healing well. No muscular spasticity noted on exam. Therapy per neurosurgery. Plan DC to SNF Assessment & Plan (06/08/2022 3:56 PM LOGISTICS PROGRAM MANAGER): Presented for elective C 3-5 ACDF and C3-7 posterior fusion on 03/17/22. Sutures out. Will need NSGY clinic OP follow up at [place]. Surgical incision healing well. No muscular spasticity noted on exam. Assessment & Plan (06/07/2022 10:57 AM LOGISTICS PROGRAM MANAGER): Presented for elective C 3-5 ACDF and C3-7 posterior fusion on 03/17/22. Sutures out. Will need NSGY clinic OP follow up at [place]. Surgical incision healing well. No muscular spasticity noted on exam. Assessment & Plan (06/06/2022 6:33 PM LOGISTICS PROGRAM MANAGER): Presented for elective C 3-5 ACDF and C3-7 posterior fusion on 03/17. Sutures out. Will need NSGY follow up at [place]. Surgical incision healing well. No muscular spasticity noted on exam. Assessment & Plan (06/05/2022 2:02 PM LOGISTICS PROGRAM MANAGER): - Presented for elective C 3-5 ACDF and C3-7 posterior fusion on 03/17. Sutures out. Will need [place]GY follow up at [place]. Assessment & Plan (05/31/2022 2:57 PM LOGISTICS PROGRAM MANAGER): - Presented for elective C 3-5 ACDF and C3-7 posterior fusion on 03/17. Sutures out. Will need [place]GY follow up at [place]. Assessment & Plan (05/30/2022 2:04 PM LOGISTICS PROGRAM MANAGER): - Presented for elective C 3-5 ACDF and C3-7 posterior fusion on 03/17. Sutures out. [place] need [place]. Assessment & Plan (05/29/2022 3:13 PM LOGISTICS PROGRAM MANAGER): - Presented for elective C 3-5 ACDF and C3-7 posterior fusion on 03/17. Sutures out. [place] need [place]. Assessment & Plan (05/28/2022 1:53 PM LOGISTICS PROGRAM MANAGER): - Presented for elective C 3-5 ACDF and C3-7 posterior fusion on 03/17. Sutures out. [place] need [place]. Assessment & Plan (05/27/2022 3:53 PM LOGISTICS PROGRAM MANAGER): - Presented for elective C 3-5 ACDF and C3-7 posterior fusion on 03/17. Sutures out. [place] need [place]. Assessment & Plan (05/25/2022 3:16 PM LOGISTICS PROGRAM MANAGER): - Presented for elective C 3-5 ACDF and C3-7 posterior fusion on 03/17. Sutures out. [place] need [place]. Strangulated inguinal hernia 09/19/2021 Overview (04/09/2022): Added automatically from request for surgery [id number] Assessment & Plan (08/16/2022 5:36 PM CDT): Stable, surgically treated; no further episodes of abdominal pain; Assessment & Plan (07/11/2022 12:48 PM CDT): S/p ex lap and repair 04/09. Had evidence of intestinal ischemia. Well healed incision. F/u CT 06/25 no obstruction, improving left sided stranding. Assessment & Plan (06/26/2022 5:18 PM CDT): S/p ex lap and repair 04/09. Had evidence of intestinal ischemia. Well healed incision. -Still NPO, swallow study redone given his being more awake, but speech recommends continued NPO status. On J tube feeds with complications as elsewhere. F/u CT 06/25 no obstruction, improving left sided stranding. Improved mental status, will ask speech to reassess swallow. Assessment & Plan (06/25/2022 10:24 AM CDT): S/p ex lap and repair 04/09. Had evidence of intestinal ischemia. Well healed incision. -Still NPO, swallow study redone given his being more awake, but speech recommends continued NPO status. On J tube feeds. F/u CT 06/25 no obstruction, improving left sided stranding. Assessment & Plan (06/23/2022 4:00 PM LOGISTICS PROGRAM MANAGER): S/p ex lap and repair 04/09. Had evidence of intestinal ischemia. Well healed incision. -Still NPO, swallow study redone given his being more awake, but speech recommends continued NPO status. On J tube feeds. Assessment & Plan (06/22/2022 4:16 PM LOGISTICS PROGRAM MANAGER): S/p ex lap and repair 04/09. Had evidence of intestinal ischemia. Well healed incision. -Still NPO, swallow study redone given his being more awake, but speech recommends continued NPO status. Assessment & Plan (06/21/2022 3:27 PM LOGISTICS PROGRAM MANAGER): S/p ex lap and repair 04/09. Had evidence of intestinal ischemia. Well healed incision. -Still NPO, swallow study redone given his being more awake, but speech recommends continued NPO status. Assessment & Plan (06/20/2022 6:16 PM LOGISTICS PROGRAM MANAGER): S/p ex lap and repair 04/09. Had evidence of intestinal ischemia. Well healed incision. -Still NPO, swallow study redone given his being more awake, but speech recommends continued NPO status. Assessment & Plan (06/16/2022 11:56 AM LOGISTICS PROGRAM MANAGER): S/p ex lap and repair 04/09. Had evidence of intestinal ischemia. Well healed incision. -Tolerating TF at goal per Gtube. Nutritional needs appear to be getting met. -Remains NPO per speech follow up on 3/1. Ok to do ice chips. Assessment & Plan (06/15/2022 1:20 PM LOGISTICS PROGRAM MANAGER): S/p ex lap and repair 04/09. Had evidence of intestinal ischemia. Well healed incision. -Tolerating TF at goal per Gtube. Nutritional needs appear to be getting met. -Remains NPO per speech follow up on 06/14. Ok to do ice chips. Assessment & Plan (06/14/2022 2:20 PM LOGISTICS PROGRAM MANAGER): S/p ex lap and repair 04/09. Had evidence of intestinal ischemia. Well healed incision. -Tolerating TF at goal per Gtube. Nutritional needs appear to be getting met. -Remains NPO per speech follow up on 06/08. Ok to do ice chips. Assessment & Plan (06/13/2022 3:59 PM LOGISTICS PROGRAM MANAGER): S/p ex lap and repair 04/09. Had evidence of intestinal ischemia. Well healed incision. -Tolerating TF at goal per Gtube. Nutritional needs appear to be getting met. -Remains NPO per speech follow up on 06/08. Assessment & Plan (06/12/2022 6:20 PM LOGISTICS PROGRAM MANAGER): S/p ex lap and repair 04/09. Had evidence of intestinal ischemia. Well healed incision. - tolerating TF per Gtube. Nutritional needs appear to be getting met. -Remains NPO per speech f/u 06/08. Billing statement I have reviewed electrolytes, K 3.6, ca 12.5. Discussed with RN and no tube feed residuals. Plan strict aspiration precautions, further advance diet and adjust tube feeds per packager or packer and weigher. Plan to recheck bed weight. Assessment & Plan (06/11/2022 4:35 PM LOGISTICS PROGRAM MANAGER): S/p ex lap and repair 04/09. Had evidence of intestinal ischemia. Well healed incision. - tolerating TF per Gtube. Nutritional needs appear to be getting met. -Remains NPO per speech f/u 06/08. Billing statement I have reviewed electrolytes, K 3.6, ca 12.5. Discussed with RN and no tube feed residuals. Plan strict aspiration precautions, further advance diet and adjust tube feeds per packager or packer and weigher. Plan to recheck bed weight. Assessment & Plan (06/10/2022 3:30 PM LOGISTICS PROGRAM MANAGER): S/p ex lap and repair 04/09. Had evidence of intestinal ischemia. Well healed incision. - tolerating TF per Gtube. Nutritional needs appear to be getting met. -Remains NPO per speech f/u 06/08. Billing statement I have reviewed electrolytes, K 3.6, ca 12.8. Discussed with RN and no tube feed residuals. Plan strict aspiration precautions, further advance diet and adjust tube feeds per packager or packer and weigher. Plan to recheck bed weight. Assessment & Plan (06/10/2022 9:27 AM LOGISTICS PROGRAM MANAGER): S/p ex lap and repair 04/09. Had evidence of intestinal ischemia. Well healed incision. - tolerating TF per Gtube. Nutritional needs appear to be getting met. - ADAT per speech. Billing statement I have reviewed electrolytes, K 3.3, ca 10.6. Discussed with RN and no tube feed residuals. Plan strict aspiration precautions, further advance diet and adjust tube feeds per packager or packer and weigher. Plan to recheck bed weight. Assessment & Plan (06/08/2022 4:11 PM LOGISTICS PROGRAM MANAGER): S/p ex lap and repair 04/09. Had evidence of intestinal ischemia. Well healed incision. - tolerating TF per Gtube. Nutritional needs appear to be getting met. - ADAT per speech. Billing statement I have reviewed electrolytes, K 3.3, ca 10.6. Discussed with RN and no tube feed residuals. Plan further advance diet and adjust tube feeds per packager or packer and weigher. Plan to recheck bed weight. Assessment & Plan (06/07/2022 11:08 AM LOGISTICS PROGRAM MANAGER): S/p ex lap and repair 04/09. Had [...] weight. Assessment & Plan (06/06/2022 6:41 PM LOGISTICS PROGRAM MANAGER): - S/p ex lap and repair 04/09. Had evidence of intestinal ischemia. Well healed incision. - tolerating TF per Gtube. - NPO per speech. Billing statement I have reviewed electrolytes, K 3.3, ca 10.6. Discussed with RN and no tube feed residuals. Plan to continue tube feeds at current rate. Assessment & Plan (06/05/2022 2:01 PM LOGISTICS PROGRAM MANAGER): - S/p ex lap and repair 04/09. Had evidence of intestinal ischemia. Well healed incision. - tolerating TF - NPO per speech Assessment & Plan (06/04/2022 11:09 AM LOGISTICS PROGRAM MANAGER): - S/p ex lap and repair 04/09. Had evidence of intestinal ischemia. Well healed incision. - tolerating TF - NPO per speech Assessment & Plan (06/02/2022 2:26 PM LOGISTICS PROGRAM MANAGER): - S/p ex lap and repair 04/09. Had evidence of intestinal ischemia. Well healed incision. - tolerating TF - NPO per speech Assessment & Plan (06/01/2022 2:18 PM LOGISTICS PROGRAM MANAGER): - S/p ex lap and repair 04/09. Had evidence of intestinal ischemia. Well healed incision. - tolerating TF - NPO per speech Assessment & Plan (05/31/2022 2:57 PM LOGISTICS PROGRAM MANAGER): - S/p ex lap and repair 04/09. Had evidence of intestinal ischemia. Well healed incision. - tolerating TF - NPO per speech Assessment & Plan (05/30/2022 2:04 PM LOGISTICS PROGRAM MANAGER): - S/p ex lap and repair 04/09. Had evidence of intestinal ischemia. Well healed incision. - tolerating TF - NPO 2/2 mental status Assessment & Plan (05/29/2022 3:13 PM LOGISTICS PROGRAM MANAGER): - S/p ex lap and repair 04/09. Had evidence of intestinal ischemia. Well healed incision. Assessment & Plan (05/28/2022 1:53 PM LOGISTICS PROGRAM MANAGER): - S/p ex lap and repair 04/09. Had evidence of intestinal ischemia. Well healed incision. Assessment & Plan (05/27/2022 3:53 PM LOGISTICS PROGRAM MANAGER): - S/p ex lap and repair 04/09. Had evidence of intestinal ischemia. Well healed incision. Assessment & Plan (05/25/2022 3:17 PM LOGISTICS PROGRAM MANAGER): - S/p ex lap and repair 04/09. Had evidence of intestinal ischemia. Well healed incision. Age-related osteoporosis wit hout current pathological fracture 08/23/2021 Assessment & Plan (10/25/2021 3:35 PM CDT): Not well controlled, patient also has hypo vitamin-D Will start alendronate 70 mg weekly Continue ergocalciferol 54447 units weekly Ensure calcium approximately 1000 mg [...] (01/27/2021): Added automatically from request for surgery [id number] Bilateral primary osteoarthritis of knee 021 Assessment [...] ambulation Assessment & Plan (04/29/2021 11:06 AM LOGISTICS PROGRAM MANAGER): Stable, patient reports occasional episodes of vertigo, [...] Stable. Assessment & Plan (06/24/2022 5:04 PM LOGISTICS PROGRAM MANAGER): History of COPD. Managed with Budesonide nebs and PRN albuterol. Prior exacerbation treatment this stay, currently controlled. Currently on RA, no wheezing. Unable to follow commands for MDI, continue nebulizers with RT and doing well. Stable. Assessment & Plan (06/23/2022 3:49 PM LOGISTICS PROGRAM MANAGER): History of COPD. Managed with Budesonide nebs and PRN albuterol. Prior exacerbation treatment this stay, currently controlled. Currently on RA, no wheezing. -Unable to follow commands for MDI, continue nebulizers with RT and doing well. Assessment & Plan (06/22/2022 4:10 PM LOGISTICS PROGRAM MANAGER): History of COPD. Managed with Budesonide nebs and PRN albuterol. Prior exacerbation treatment this stay, currently controlled. Currently on RA, no wheezing. -Unable to follow commands for MDI, continue nebulizers and doing well. Assessment & Plan (06/21/2022 3:24 PM LOGISTICS PROGRAM MANAGER): History of COPD. Managed with Budesonide nebs and PRN albuterol. Prior exacerbation treatment this stay, currently controlled. Currently on RA, no wheezing. -Unable to follow commands for MDI, continue nebs. Doing well. Assessment & Plan (06/20/2022 6:10 PM LOGISTICS PROGRAM MANAGER): History of COPD. Managed with Budesonide nebs and PRN albuterol. Prior exacerbation treatment this stay, currently controlled. Currently on RA, no wheezing. -Unable to follow commands for MDI, continue nebs. Doing well. Assessment & Plan (06/16/2022 11:50 AM LOGISTICS PROGRAM MANAGER): History of COPD. Managed with Budesonide nebs and PRN albuterol. Prior exacerbation treatment this stay, currently controlled. Currently on RA, no wheezing. -Unable to follow commands for MDI, continue nebs. Assessment & Plan (06/15/2022 1:18 PM LOGISTICS PROGRAM MANAGER): History of COPD. Managed with Budesonide nebs and PRN albuterol. Prior exacerbation treatment this stay, currently controlled. Currently on RA, no wheezing. -Unable to follow commands for MDI, continue nebs. Assessment & Plan (06/14/2022 2:19 PM LOGISTICS PROGRAM MANAGER): History of COPD. Managed with Budesonide nebs and PRN albuterol. Prior exacerbation treatment this stay, currently controlled. Currently on RA, no wheezing. -Unable to follow commands for MDI, continue nebs. Assessment & Plan (06/13/2022 3:55 PM LOGISTICS PROGRAM MANAGER): History of COPD. Managed with Budesonide nebs and PRN albuterol. Prior exacerbation treatment this stay, currently controlled. Currently on RA, no wheezing. -Unable to follow commands for MDI, continue nebs. Assessment & Plan (06/12/2022 6:18 PM LOGISTICS PROGRAM MANAGER): Hx COPD. Managed Budesonide nebs and PRN [...] plan. Assessment & Plan (06/11/2022 4:33 PM LOGISTICS PROGRAM MANAGER): Hx COPD. Managed Budesonide nebs and PRN [...] plan. Assessment & Plan (06/10/2022 3:24 PM LOGISTICS PROGRAM MANAGER): Hx COPD. Managed Budesonide nebs and PRN albuterol. Prior exacerbation treatment this stay, currently controlled On 2L-RA. Unable to follow commands for MDI, continue nebs. Billing statement Reviewed O2 requirements last 24hrs and recent chest imaging, exam without wheezing but encephalopathy limits use of MDIs. Plan to continue nebs as prescribed. No change in current plan. Assessment & Plan (06/10/2022 9:25 AM LOGISTICS PROGRAM MANAGER): Hx COPD. Managed Budesonide nebs and PRN albuterol. Prior exacerbation treatment this stay, currently controlled On 2L-RA. Billing statement Reviewed O2 requirements last 24hrs and recent chest imaging, exam without wheezing but encephalopathy limits use of MDIs. Plan to continue nebs as prescribed. No change in current plan. Assessment & Plan (06/08/2022 4:03 PM LOGISTICS PROGRAM MANAGER): Hx COPD. Managed Budesonide nebs and PRN albuterol. Prior exacerbation treatment this stay, currently controlled On 2L-RA. Billing statement Reviewed O2 requirements last 24hrs and recent chest imaging, exam without wheezing but encephalopathy limits use of MDIs. Plan to continue nebs as prescribed. Assessment & Plan (06/07/2022 11:02 AM LOGISTICS PROGRAM MANAGER): - Budesonide nebs and PRN albuterol. Prior exacerbation treatment this stay, currently controlled On RA Billing statement Reviewed O2 requirements last 24hrs and recent chest imaging, exam without wheezing but encephalopathy limits use of MDIs. Plan to continue nebs as prescribed. Assessment & Plan (06/06/2022 6:34 PM LOGISTICS PROGRAM MANAGER): - Budesonide nebs and PRN albuterol. Prior exacerbation treatment this stay, currently controlled On RA Billing statement Reviewed O2 requirements and recent chest imaging. Plan DC continuous O2 sat monitoring. Assessment & Plan (06/05/2022 2:02 PM LOGISTICS PROGRAM MANAGER): - Budesonide nebs and PRN albuterol. Prior exacerbation treatment this stay, currently controlled On RA Assessment & Plan (05/30/2022 2:04 PM LOGISTICS PROGRAM MANAGER): - Budesonide nebs and PRN albuterol. Prior exacerbation treatment this stay, currently controlled On RA Assessment & Plan (05/29/2022 3:13 PM LOGISTICS PROGRAM MANAGER): - Budesonide nebs and PRN albuterol. Prior exacerbation treatment this stay, currently controlled On RA Assessment & Plan (05/28/2022 1:53 PM LOGISTICS PROGRAM MANAGER): - Budesonide nebs and PRN albuterol. Prior exacerbation treatment this stay, currently controlled On RA Assessment & Plan (05/27/2022 3:53 PM LOGISTICS PROGRAM MANAGER): - Budesonide nebs and PRN albuterol. Prior exacerbation treatment this stay, currently controlled On RA Assessment & Plan (05/26/2022 1:17 PM LOGISTICS PROGRAM MANAGER): - Budesonide nebs and PRN albuterol. Prior [...] Ellipta Assessment & Plan (06/07/2021 4:52 PM LOGISTICS PROGRAM MANAGER): Stable, well controlled; quit smoking approximately 24 years ago Active in pulmonary rehab, walking for up to 60 minutes at a time new line rare use of rescue inhaler Continue Trelegy Ellipta 1 puff daily Assessment & Plan (04/29/2021 11:07 AM LOGISTICS PROGRAM MANAGER): Stable, well controlled; patient reports he does get dyspneic especially significant exertion Follows with pulmonology for management Continue Trelegy Ellipta 1 puff daily, albuterol p.r.n. for dyspnea Assessment & Plan (02/21/2021 8:31 PM LOGISTICS PROGRAM MANAGER): Continues to have significant cough, barking cough; [...] daily Assessment & Plan (06/07/2021 4:51 PM LOGISTICS PROGRAM MANAGER): Stable, well controlled; continue to monitor Assessment & Plan (04/29/2021 11:07 AM LOGISTICS PROGRAM MANAGER): Stable, well controlled; patient reports occasional episodes of nocturia x1 Continue finasteride 5 mg daily Assessment & Plan (05/06/2020 12:57 PM LOGISTICS PROGRAM MANAGER): Patient does report increased urine frequency. UA [...] issues. Assessment & Plan (05/06/2020 12:56 PM LOGISTICS PROGRAM MANAGER): Continue meclizine prn. Assessment & Plan (04/08/2020 3:22 AM LOGISTICS PROGRAM MANAGER): Patient feels ataxic but [id number] and [id number] were normal. MRI is pending. Neurology has been consulted. Meclizine has not helped. Fall precautions. May need PT after MRI is completed. Assessment & Plan (04/07/2020 1:52 PM LOGISTICS PROGRAM MANAGER): With new lethargy, orthostatic hypotension- I believe [...] 03/04/2019 Assessment & Plan (03/04/2019 2:55 PM LOGISTICS PROGRAM MANAGER): Will do emg/ncs . Recommended cock-up wrist [...] monitor. Assessment & Plan (06/24/2022 5:05 PM LOGISTICS PROGRAM MANAGER): Continue amlodipine 10 mg daily. Discontinued home HCTZ on admit. On coreg and uptitrated to 25 BID on 06/05/22. Volume stable off dialysis. No peripheral edema. -Mostly normotensive, will continue to monitor. Assessment & Plan (06/23/2022 3:49 PM LOGISTICS PROGRAM MANAGER): Continue amlodipine 10 mg daily. Discontinued home HCTZ on admit. On coreg and uptitrated to 25 BID on 06/05/22. Volume stable off dialysis. -Mostly normotensive, will continue to monitor. Assessment & Plan (06/22/2022 4:11 PM LOGISTICS PROGRAM MANAGER): Continue amlodipine 10 mg daily. Discontinued home HCTZ on admit. On coreg and uptitrated to 25 BID on 06/05/22. Volume stable off dialysis. -Mostly normotensive, will continue to monitor. Assessment & Plan (06/21/2022 3:25 PM LOGISTICS PROGRAM MANAGER): Continue amlodipine 10 mg daily. Discontinued home HCTZ on admit. On coreg and uptitrated to 25 BID on 06/05. Volume stable. -Mostly normotensive, will continue to monitor. Assessment & Plan (06/20/2022 6:10 PM LOGISTICS PROGRAM MANAGER): -Continue amlodipine 10 mg daily -Continue coreg. Uptitrated coreg 25 BID on 06/05. Volume stable. -Mostly normotensive, will continue to monitor. Assessment & Plan (06/16/2022 11:50 AM LOGISTICS PROGRAM MANAGER): -Continue amlodipine 10 mg daily -Continue coreg. Uptitrated coreg 25 BID on 06/05. -Mostly normotensive, will continue to monitor. Assessment & Plan (06/15/2022 1:17 PM LOGISTICS PROGRAM MANAGER): -Continue amlodipine 10 mg daily -Continue coreg. Uptitrated coreg 25 BID on 06/05. -Mostly normotensive, will continue to monitor. Assessment & Plan (06/14/2022 2:19 PM LOGISTICS PROGRAM MANAGER): -Continue amlodipine 10 mg daily -Continue coreg. Uptitrated coreg 25 BID on 06/05. -Mostly normotensive, will continue to monitor. Assessment & Plan (06/13/2022 3:54 PM LOGISTICS PROGRAM MANAGER): -Continue amlodipine 10 mg daily -Continue coreg. Uptitrated coreg 25 BID on 06/05. -Mostly normotensive, will continue to monitor. Assessment & Plan (06/12/2022 6:19 PM LOGISTICS PROGRAM MANAGER): Cont amlodipine, coreg, uptitrated coreg to 25 bid given persistent HTN 06/05. Improved trend, continue dosing at this level. Billing statement Plan continue dual agent control. Plan monitor renal function as OP. Assessment & Plan (06/11/2022 4:34 PM LOGISTICS PROGRAM MANAGER): Cont amlodipine, coreg, uptitrated coreg to 25 bid given persistent HTN 2/20. Improved trend, continue dosing at this level. Billing statement Plan continue dual agent control. Plan monitor renal function. Assessment & Plan (06/10/2022 3:25 PM LOGISTICS PROGRAM MANAGER): Cont amlodipine, coreg, uptitrated coreg to 25 bid given persistent HTN 2/20. Improved trend, continue dosing at this level. Billing statement Plan continue dual agent control. Plan monitor renal function. Assessment & Plan (06/10/2022 9:25 AM LOGISTICS PROGRAM MANAGER): Cont amlodipine, coreg, uptitrated coreg to 25 bid given persistent HTN 2/20. Improved trend, continue dosing at this level. Billing statement Plan continue dual agent control. Assessment & Plan (06/08/2022 4:04 PM LOGISTICS PROGRAM MANAGER): Cont amlodipine, coreg, uptitrated coreg to 25 bid given persistent HTN 2/20. Improved trend, continue dosing at this level. Billing statement Plan dual agent control. Assessment & Plan (06/07/2022 11:03 AM LOGISTICS PROGRAM MANAGER): Cont amlodipine, coreg, uptitrated coreg to 25 bid given persistent HTN 2/20. Improved trend, continue dosing at this level. Assessment & Plan (06/06/2022 6:35 PM LOGISTICS PROGRAM MANAGER): Cont amlodipine, coreg, uptitrated coreg to 25 bid given persistent HTN 2/20. Improved trend, will hold dosing at this level. Assessment & Plan (06/05/2022 2:02 PM LOGISTICS PROGRAM MANAGER): Cont amlodipine, coreg, uptitrated coreg to 25 bid given persistent HTN 2/20 Assessment & Plan (05/30/2022 2:05 PM LOGISTICS PROGRAM MANAGER): Cont amlodipine, coreg Assessment & Plan (05/29/2022 3:13 PM LOGISTICS PROGRAM MANAGER): Cont current meds Assessment & Plan (05/28/2022 1:53 PM LOGISTICS PROGRAM MANAGER): Cont current meds Assessment & Plan (05/27/2022 3:53 PM LOGISTICS PROGRAM MANAGER): Cont current meds Assessment & Plan (05/26/2022 1:17 PM LOGISTICS PROGRAM MANAGER): Cont current meds Assessment & Plan (12/20/2021 [...] mg Assessment & Plan (06/07/2021 4:50 PM LOGISTICS PROGRAM MANAGER): Stable, well controlled; blood pressure at target today Continue hydrochlorothiazide 25 mg daily Assessment & Plan (04/29/2021 11:04 AM LOGISTICS PROGRAM MANAGER): Controlled; blood pressure at target Continue amlodipine 10 mg, to chlorothiazide 25 mg, losartan 100 mg Assessment & Plan (07/20/2020 7:39 AM CDT): Rechecked in office and was 136/78. Will continue to monitor. May need to change medication. Pt also sees cardiology. Will see him back next month and will recheck Assessment & Plan (05/06/2020 12:55 PM LOGISTICS PROGRAM MANAGER): Presented with elevated BP. Presently well controlled. Continue home Amlodipine and Losartan. HCTZ is on hold as patient is currently on iv fluids. Assessment & Plan (04/08/2020 3:18 AM LOGISTICS PROGRAM MANAGER): Amlodipine and losartan have been resumed with hold parameters. Holding hydrochlorothiazide as it can cause vertigo. Assessment & Plan (03/24/2020 8:24 AM LOGISTICS PROGRAM MANAGER): Blood pressure is adequately controlled on current [...] recommended. Assessment & Plan (06/07/2021 4:51 PM LOGISTICS PROGRAM MANAGER): Stable, well controlled; continue sertraline 100 mg [...] change. Assessment & Plan (05/06/2020 12:54 PM LOGISTICS PROGRAM MANAGER): Continue home Prozac. Mood is stable at this time. Assessment & Plan (04/08/2020 3:18 AM LOGISTICS PROGRAM MANAGER): Continue SSRI Assessment & Plan (03/24/2020 8:24 AM LOGISTICS PROGRAM MANAGER): Stable on current medication. Continue fluoxetine as [...] mg Assessment & Plan (06/07/2021 4:50 PM LOGISTICS PROGRAM MANAGER): Stable, well controlled; no side effects from current medication Continue rosuvastatin 40 mg daily Assessment & Plan (04/29/2021 11:05 AM LOGISTICS PROGRAM MANAGER): Stable, well controlled LDL less than 100; continues to have elevated ASCVD risk score 24.8% Continue rosuvastatin 40 mg daily, good blood pressure control Assessment & Plan (05/06/2020 12:54 PM LOGISTICS PROGRAM MANAGER): Continue home statin Assessment & Plan (04/08/2020 3:18 AM LOGISTICS PROGRAM MANAGER): Continue Crestor Assessment & Plan (03/24/2020 8:24 AM LOGISTICS PROGRAM MANAGER): Lipid abnormalities are stable, reviewed previous lipid levels in [facility]. Pharmacotherapy as ordered. Order for lipid panel [...] Lipids will be reassessed in 6 months. Resolved Problems Problem Noted Date Diagnosed Date Resolved Date Deep vein thrombosis (DVT) d uring current hospitalization 03/18/2023 10/08/2023 Intermittent headache 07/17/20222022 Assessment & Plan (07/31/2022 11:45 AM CDT): Complains of headache since yesterday. States it is worse when moving a certain way. Tylenol given. Patient is on Tylenol 500 mg po every 6 hours as needed, Tramadol 25 mg po twice daily. Continue with the same. Assessment & Plan (07/17/2022 11:56 AM CDT): Patient reports intermittent frontal headache x 2 weeks, 5/10 at worst. No associated neurological symptoms and no n/v. Perhaps scheduled zofran was contributing. -zofran prn -continue tylenol PRN as provides relief. Malnutrition 07/14/2022 12/27/2023 Assessment & Plan (07/17/2022 11:53 AM CDT): Was tube feed dependent d/t encephalopathy, pulled out GJ tube 07/11, passed MBS for dysphagia 2 diet 07/13. He is doing well with dysphagia 2 diet. - monitor PO intake - aspiration precautions Hyperkalemia 07/09/2022 07/14/2022 Assessment & Plan (07/11/2022 12:48 PM CDT): K 5.8 on 07/05. No EKG changes. S/p lokelma - Changed TF's to Nepro w/ improved K Laboratory confirmed diagnosis of COVID-19 05/30/2022 03/18/2023 Assessment & Plan (06/17/2022 5:35 PM LOGISTICS PROGRAM MANAGER): New dx after mild coughing noted and then called in 05/29 to note she tested positive at home. Remdesivir x 3 doses. No hypoxia/fever. COVID RECOVERED Assessment & Plan (06/16/2022 11:58 AM LOGISTICS PROGRAM MANAGER): New dx after mild coughing noted and then called in 05/29 to note she tested positive at home. Remdesivir x 3 doses. No hypoxia/fever. COVID RECOVERED Assessment & Plan (06/15/2022 1:22 PM LOGISTICS PROGRAM MANAGER): New dx after mild coughing noted and then called in 05/29 to note she tested positive at home. Remdesivir x 3 doses. No hypoxia/fever. COVID RECOVERED Assessment & Plan (06/14/2022 2:26 PM LOGISTICS PROGRAM MANAGER): New dx after mild coughing noted and then called in 05/29 to note she tested positive at home. Remdesivir x 3 doses. No hypoxia/fever. COVID RECOVERED Assessment & Plan (06/13/2022 4:14 PM LOGISTICS PROGRAM MANAGER): New dx after mild coughing noted and then called in 05/29 to note she tested positive at home. Remdesivir x 3 doses. No hypoxia/fever. COVID RECOVERED Assessment & Plan (06/12/2022 6:19 PM LOGISTICS PROGRAM MANAGER): - new dx after mild coughing noted and then called in 05/29 to note she tested positive at home - given high risk for worsening and has mild cough gave remdesivir x 3 doses - remains on isolation (05/30 day 1) - anticipate 10 days - thus far no hypoxia/fever, still having intermittent cough, no oxygen requirement. Await SNF bed, medically stable for transfer. Spoke with Infection Prevention. Now COVID RECOVERED Billing statement I have reviewed labs, venous doppler results and O2 requirements. Clinically resolved infection, Completed quarantine for total of 10d per hospital policy 06/10, awaiting private room at SNF. Assessment & Plan (06/11/2022 4:34 PM LOGISTICS PROGRAM MANAGER): - new dx after mild coughing noted and then called in 05/29 to note she tested positive at home - given high risk for worsening and has mild cough gave remdesivir x 3 doses - remains on isolation (05/30 day 1) - anticipate 10 days - thus far no hypoxia/fever, still having intermittent cough, no oxygen requirement. Await SNF bed, medically stable for transfer. Spoke with Infection Prevention. Now COVID RECOVERED Billing statement I have reviewed labs, venous doppler results and O2 requirements. Clinically resolved infection, Completed quarantine for total of 10d per hospital policy 06/10, awaiting private room at SNF. Assessment & Plan (06/10/2022 3:25 PM LOGISTICS PROGRAM MANAGER): - new dx after mild coughing noted and then called in 05/29 to note she tested positive at home - given high risk for worsening and has mild cough gave remdesivir x 3 doses - remains on isolation (05/30 day 1) - anticipate 10 days - thus far no hypoxia/fever, still having intermittent cough, no oxygen requirement. Await SNF bed, medically stable for transfer. Spoke with Infection Prevention. Await IP clearance of precautions. Billing statement I have reviewed labs, venous doppler results and O2 requirements. Clinically resolved infection, Completed quarantine for total of 10d per hospital policy, awaiting private room at SNF. Assessment & Plan (06/10/2022 9:25 AM LOGISTICS PROGRAM MANAGER): - new dx after mild coughing noted and then called in 05/29 to note she tested positive at home - given high risk for worsening and has mild cough gave remdesivir x 3 doses - remains on isolation (05/30 day 1) - anticipate 10 days - thus far no hypoxia/fever, still having intermittent cough, no oxygen requirement. Await SNF bed, medically stable for transfer. Await IP clearance of precautions. Billing statement I have reviewed labs, venous doppler results and O2 requirements. Clinically resolved infection, Plan continue quarantine for total of 10d per hospital policy, awaiting private room at SNF. Assessment & Plan (06/08/2022 4:04 PM LOGISTICS PROGRAM MANAGER): - new dx after mild coughing noted and then called in 05/29 to note she tested positive at home - given high risk for worsening and has mild cough gave remdesivir x 3 doses - remains on isolation (05/30 day 1) - anticipate 10 days - thus far no hypoxia/fever, still having intermittent cough, no oxygen requirement. Await SNF bed, medically stable for transfer. Billing statement I have reviewed labs, venous doppler results and O2 requirements. Clinically resolved infection, Plan continue quarantine for total of 10d per hospital policy, awaiting private room at SNF. Assessment & Plan (06/07/2022 11:03 AM LOGISTICS PROGRAM MANAGER): - new dx after mild coughing noted and then called in 05/29 to note she tested positive at home - given high risk for worsening and has mild cough gave remdesivir x 3 doses - remains on isolation (05/30 day 1) - anticipate 10 days - thus far no hypoxia/fever, still having intermittent cough, no oxygen requirement. Billing statement I have reviewed labs, venous doppler results and O2 requirements. Clinically resolved infection, Plan continue quarantine for total of 10d per hospital policy, awaiting private room at SNF. Assessment & Plan (06/06/2022 6:33 PM LOGISTICS PROGRAM MANAGER): - new dx after mild coughing noted and then called in 05/29 to note she tested positive at home - given high risk for worsening and has mild cough gave remdesivir x 3 doses - remains on isolation (05/30 day 1) - anticipate 10 days - thus far no hypoxia/fever, still having intermittent cough, no oxygen requirement. Billing statement I have reviewed labs, dopplers and O2 requirements. Clinically resolved infection, Plan continue quarantine for total of 10d per hospital policy. Assessment & Plan (06/05/2022 1:56 PM LOGISTICS PROGRAM MANAGER): - new dx after mild coughing noted and then called in 05/29 to note she tested positive at home - given high risk for worsening and has mild cough gave remdesivir x 3 doses - remains on isolation (05/30 day 1) - anticipate 10 days - thus far no hypoxia/fever, still having intermittent cough Assessment & Plan (06/04/2022 11:00 AM LOGISTICS PROGRAM MANAGER): - new dx after mild coughing noted and then called in 05/29 to note she tested positive at home - given high risk for worsening and has mild cough gave remdesivir x 3 doses - remains on isolation (05/30 day 1) - anticipate 10 days - thus far no hypoxia/fever and cough slowly improving Assessment & Plan (06/03/2022 2:56 PM LOGISTICS PROGRAM MANAGER): - new dx after mild coughing noted and then called in 05/29 to note she tested positive at home - given high risk for worsening and has mild cough gave remdesivir x 3 doses - cough seems to be improving today, remains on isolation (05/30 day 1) - monitor for hypoxia/fever Assessment & Plan (06/02/2022 2:25 PM LOGISTICS PROGRAM MANAGER): - new dx after mild coughing noted and then called in 05/29 to note she tested positive at home - given high risk for worsening and has mild cough gave remdesivir x 3 doses - thus far still coughing, had one cough induced emesis event 06/01 PM - monitor for hypoxia/fever Assessment & Plan (06/01/2022 2:17 PM LOGISTICS PROGRAM MANAGER): - new dx after mild coughing noted and then called in 05/29 to note she tested positive at home - given high risk for worsening and has mild cough gave remdesivir x 3 doses which he finishes today; no further complication as of now - monitor for hypoxia, currently on RA Assessment & Plan (05/31/2022 2:56 PM LOGISTICS PROGRAM MANAGER): - new dx after mild coughing noted and then called in 05/29 to note she tested positive at home - given high risk for worsening and has mild cough will complete Remdesivir 200 mg x1 then 100 mg x 2 additional doses (completes 06/01) - monitor for hypoxia, currently on RA Assessment & Plan (05/30/2022 1:59 PM LOGISTICS PROGRAM MANAGER): - new dx after mild coughing noted and then called in last night to note she tested positive at home - given high risk for worsening and has mild cough will start Remdesivir 200 mg x1 then 100 mg x 2 additional doses - monitor for hypoxia, currently on RA Transaminitis 05/30/2022 06/17/2022 Assessment & Plan (06/17/2022 5:35 PM LOGISTICS PROGRAM MANAGER): Mild increase noted when diagnosed with Covid. Statin held. Now resolved. -Continue Crestor 10mg Assessment & Plan (06/16/2022 11:58 AM LOGISTICS PROGRAM MANAGER): Mild increase noted when diagnosed with Covid. Statin held. Now resolved. -Continue Crestor 10mg Assessment & Plan (06/15/2022 1:23 PM LOGISTICS PROGRAM MANAGER): Mild increase noted when diagnosed with Covid. Statin held. Now resolved. -Re-starting Crestor 10mg Assessment & Plan (06/14/2022 2:26 PM LOGISTICS PROGRAM MANAGER): Mild increase noted when diagnosed with Covid. Statin held. Now resolved. -Re-starting Crestor 10mg Assessment & Plan (06/13/2022 4:19 PM LOGISTICS PROGRAM MANAGER): Mild increase noted when diagnosed with Covid. Statin held. Now resolved. -Re-starting Crestor 10mg Assessment & Plan (06/05/2022 2:01 PM LOGISTICS PROGRAM MANAGER): - mild noted on recent labs, ?2/2 covid - still mild uptrend - holding statin as well in meantime, reviewed med list and rest of meds aren't big offenders for LFT issues Assessment & Plan (06/03/2022 2:57 PM LOGISTICS PROGRAM MANAGER): - mild noted on recent labs, ?viral vs. Other >meds - cont to hold statin and monitor > mildly better today, cont to watch Assessment & Plan (06/02/2022 2:26 PM LOGISTICS PROGRAM MANAGER): - mild noted on recent labs, ?viral vs. Other >meds - cont to hold statin and monitor Assessment & Plan (06/01/2022 2:19 PM LOGISTICS PROGRAM MANAGER): - mild noted on recent labs, ?viral vs. Other >meds - still mildly worsening so will hold statin at this point and observe course Assessment & Plan (05/31/2022 2:58 PM LOGISTICS PROGRAM MANAGER): - mild noted on recent labs, ?viral vs. Other; repeat CMP this evening and assess Acute deep vein thrombosis ( DVT) of femoral vein of right lower extremity 05/30/2022 12/27/2023 Assessment & Plan (11/10/2022 9:33 AM CDT): Well controlled, no significant bruising or bleeding; continue Eliquis 5 mg b.i.d. Assessment & Plan (08/16/2022 5:35 PM CDT): Patient has history of DVT during prolonged hospitalization; will continue apixaban 5 mg b.i.d.; re-evaluate in 3 months, discontinue if no further risk factors for developing DVTs Assessment & Plan (07/17/2022 11:53 AM CDT): R femoral v DVT noted on US 05/08. No pitting edema appreciated on RLE. Was on apixaban, but transitioned to lovenox during hospitalization. Transitioned to PO apixaban today, prior to discharge. Assessment & Plan (06/26/2022 5:10 PM CDT): R femoral v DVT noted on US 05/08. No pitting edema appreciated on RLE. Plan: Continue Apixaban 5 BID. Monitoring serial blood counts and Hb remains stable on serial monitoring. Assessment & Plan (06/25/2022 10:18 AM CDT): R femoral v DVT noted on US 05/08. No pitting edema appreciated on RLE. Plan: Continue Apixaban 5 BID. Monitoring serial blood counts and Hb remains stable on serial monitoring. Assessment & Plan (06/24/2022 5:02 PM LOGISTICS PROGRAM MANAGER): R femoral v DVT noted on US 05/08. No pitting edema appreciated on RLE. Plan: Continue Apixaban 5 BID. Monitoring serial blood counts and Hb remains stable on serial monitoring. Assessment & Plan (06/23/2022 3:48 PM LOGISTICS PROGRAM MANAGER): R femoral v DVT noted on US 05/08. No pitting edema appreciated on RLE. Plan: - Continue Apixaban 5 BID. Monitoring serial blood counts and Hb remains stable on serial monitoring. Assessment & Plan (06/22/2022 4:07 PM LOGISTICS PROGRAM MANAGER): R femoral v DVT noted on US 05/08. No pitting edema appreciated on RLE. - Continue Apixaban 5 BID. Monitoring serial blood counts and Hb remains stable. Assessment & Plan (06/21/2022 3:22 PM LOGISTICS PROGRAM MANAGER): R femoral v DVT noted on US 05/08. No pitting edema appreciated on RLE. - Continue Apixaban 5 BID. Monitoring serial blood counts and remains stable. Assessment & Plan (06/20/2022 6:08 PM LOGISTICS PROGRAM MANAGER): R femoral v DVT noted on US 05/08. No pitting edema appreciated on RLE. - Continue Apixaban 5 BID. Assessment & Plan (06/16/2022 12:00 PM LOGISTICS PROGRAM MANAGER): R femoral v DVT noted on US 05/08. No pitting edema appreciated on RLE. - Continue Apixaban 5 BID Assessment & Plan (06/15/2022 1:23 PM LOGISTICS PROGRAM MANAGER): R femoral v DVT noted on US 05/08. No pitting edema appreciated on RLE. - Continue Apixaban 5 BID Assessment & Plan (06/14/2022 2:26 PM LOGISTICS PROGRAM MANAGER): R femoral v DVT noted on US 05/08. No pitting edema appreciated on RLE. - Continue Apixaban 5 BID Assessment & Plan (06/13/2022 4:20 PM LOGISTICS PROGRAM MANAGER): R femoral v DVT noted on US 05/08. No pitting edema appreciated on RLE. - Continue Apixaban 5 BID Assessment & Plan (06/12/2022 6:16 PM LOGISTICS PROGRAM MANAGER): R femoral v DVT noted on US 05/08. Treating with apixaban 5 bid No pitting edema appreciated on RLE. F/u Hb 8.5 on anticoagulation. Billing statement Personally reviewed doppler results with RLE DVT and agree with continued plan for apixiban therapy for acute DVT for 3mo duration (triggered). Assessment & Plan (06/11/2022 4:32 PM LOGISTICS PROGRAM MANAGER): R femoral v DVT noted on US 05/08. Treating with apixaban 5 bid No pitting edema appreciated on RLE. F/u Hb 8.5 on anticoagulation. Billing statement Personally reviewed doppler results with RLE DVT and agree with continued plan for apixiban therapy for acute DVT for 3mo duration (triggered). Assessment & Plan (06/10/2022 3:21 PM LOGISTICS PROGRAM MANAGER): R femoral v DVT noted on US 05/08. Treating with apixaban 5 bid No pitting edema appreciated on RLE. F/u Hb 8.1 on anticoagulation. Billing statement I have reviewed doppler results with RLE DVT and agree with continued plan for apixiban therapy for acute DVT for 3mo duration (triggered). Assessment & Plan (06/10/2022 9:23 AM LOGISTICS PROGRAM MANAGER): R femoral v DVT noted on US 05/08. Treating with apixaban 5 bid No pitting edema appreciated on RLE. F/u Hb 8.1 on anticoagulation. Billing statement I have reviewed doppler results with RLE DVT and agree with continuing apixiban therapy for acute DVT for 3mo duration (triggered). Assessment & Plan (06/08/2022 4:01 PM LOGISTICS PROGRAM MANAGER): R femoral v DVT noted on US 05/08 - cont apixaban 5 bid No pitting edema appreciated. F/u Hb 8.1 on anticoagulation. Billing statement I have reviewed doppler results with RLE DVT and agree with continuing apixiban therapy for acute DVT for 3mo duration (triggered). Assessment & Plan (06/07/2022 10:59 AM LOGISTICS PROGRAM MANAGER): - noted on US 05/08 - cont apixaban 5 bid No pitting edema appreciated. Billing statement I have reviewed doppler results with RLE DVT and agree with continuing apixiban therapy for acute DVT for 3mo duration (triggered). Assessment & Plan (06/06/2022 6:28 PM LOGISTICS PROGRAM MANAGER): - noted on US 05/08 - cont apixaban 5 bid No pitting edema appreciated. Billing statement I have reviewed doppler results with RLE DVT and agree with continuing apixiban therapy for acute DVT. Assessment & Plan (06/05/2022 2:01 PM LOGISTICS PROGRAM MANAGER): - noted on US 05/08 - cont apixaban 5 bid Assessment & Plan (06/04/2022 11:09 AM LOGISTICS PROGRAM MANAGER): - noted on US 05/08 - cont apixaban 5 bid Assessment & Plan (06/03/2022 2:57 PM LOGISTICS PROGRAM MANAGER): - noted on US 05/08 - cont apixaban 5 bid Assessment & Plan (06/02/2022 2:26 PM LOGISTICS PROGRAM MANAGER): - noted on US 05/08 - cont apixaban 5 bid Assessment & Plan (06/01/2022 2:18 PM LOGISTICS PROGRAM MANAGER): - noted on US 05/08 - cont apixaban 5 bid Assessment & Plan (05/31/2022 2:57 PM LOGISTICS PROGRAM MANAGER): - noted on US 05/08 - cont apixaban 5 bid Assessment & Plan (05/30/2022 2:04 PM LOGISTICS PROGRAM MANAGER): - noted on US 05/08 - cont apixaban 5 bid Goals of care, counseling/discussion 05/27/2022 03/18/2023 Assessment & Plan (07/14/2022 12:11 PM CDT): Multiple discussions throughout prolonged course, present goal is short term SNF placement w/ eventual goal of returning home. 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 Much appreciated. Assessment & Plan (06/26/2022 5:14 PM CDT): Poor prognosis for most of hospitalization with severe encephalopathy. Was not following commands with behavioral issues that prevented patient from going SNF as skilled (insurance will not cover SNF if he is unable to skill for rehab, which requires following commands). Awaited family decision on facility for penitentiary care at SNF (vs [facility] with private duty, which family declines). CM following and spoke with in f/u 06/21, 06/22, 06/23. Remains full code. Concern for recurrent aspiration events despite tube feeds and ongoing lack of progress seen in mental status. Marked improvement with normalization of calcium 06/26. Will ask PT/OT to reassess. Anticipate family meeting once MRI results obtained to firm up DC plans. 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 Much appreciated. Assessment & Plan (06/25/2022 10:21 AM CDT): Poor prognosis. Really not following commands and has behavioral issues that are preventing patient from going SNF as skilled (insurance will not cover SNF if he is unable to skill for rehab, which requires following commands). Awaiting family decision on facility for penitentiary care at SNF (vs [facility] with private duty, which family declines). CM following and spoke with in f/u 06/21, 06/22, 06/23. Remains full code. Concern for recurrent aspiration events despite tube feeds and ongoing lack of progress seen in mental status. Anticipate family meeting once MRI results obtained to firm up DC plans. Consulted palliative care for assistance in jail goals. Much appreciated. Assessment & Plan (06/24/2022 5:05 PM LOGISTICS PROGRAM MANAGER): Poor prognosis. Really not following commands and has behavioral issues that are preventing patient from going SNF as skilled (insurance will not cover SNF if he is unable to skill for rehab, which requires following commands). Awaiting family decision on facility for penitentiary care at SNF (vs [facility] with private duty, which family declines). CM following and spoke with in f/u 06/21, 06/22, 06/23. Remains full code. Concern for recurrent aspiration events despite tube feeds and ongoing lack of progress seen in mental status. Anticipate family meeting once MRI results obtained to firm up DC plans. 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 Much appreciated. Assessment & Plan (06/23/2022 3:57 PM LOGISTICS PROGRAM MANAGER): Really not following commands and has behavioral issues that are preventing patient from going SNF as skilled (insurance will not cover SNF if he is unable to skill for rehab, which requires following commands). Awaiting family decision on facility for penitentiary care at SNF (vs [facility] with private duty, which family declines). CM following and spoke with in f/u 06/21, 06/22. Remains full code. Concern for recurrent aspiration events despite tube feeds and ongoing lack of progress seen in mental status. Anticipate family meeting once MRI results obtained to firm up DC plans. 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 Much appreciated. Assessment & Plan (06/22/2022 4:13 PM LOGISTICS PROGRAM MANAGER): Really not following commands and has behavioral issues that are preventing patient from going SNF (insurance will not cover SNF if he is unable to skill for rehab, which requires following commands). Looking at [facility] care at SNF as OP (vs [facility] with private duty, family declines). CM following and spoke with in f/u 3. Remains full code. Concern for recurrent aspiration events despite tube feeds and ongoing lack of progress seen in mental status. Anticipate family meeting once MRI results obtained to firm up DC plans. Consulted palliative care for assistance in jail goals. Assessment & Plan (06/21/2022 3:26 PM LOGISTICS PROGRAM MANAGER): Really not following commands and has behavioral issues that are preventing patient from going SNF (insurance will not cover SNF if he is unable to skill for rehab, which requires following commands). Looking at penitentiary care at SNF as OP vs [facility] with private duty. CM following and spoke with in f/u 38. Remains full code. Anticipate family meeting once MRI results obtained to firm up DC plans. Consider palliative care involvement. Assessment & Plan (06/20/2022 6:11 PM LOGISTICS PROGRAM MANAGER): Really not following commands and has behavioral issues that are preventing patient from going SNF (insurance will not cover SNF if he is unable to skill for rehab, which requires following commands). CM following and spoke with in f/u 3. Remains full code. Assessment & Plan (06/16/2022 11:58 AM LOGISTICS PROGRAM MANAGER): Multiple discussions with from prior teams (Dr. Barksdale and Dr. Marley) > cont supportive treatments with goal of improvement of encephalopathy and d/c to SNF; remains Full Code. - Spouse, Normal, willing to accept MRI after today's discussion. - Anticipate d/c to SNF, however not medically ready yet. Assessment & Plan (06/15/2022 1:22 PM LOGISTICS PROGRAM MANAGER): Multiple discussions with from prior teams (Dr. Barksdael and Dr. Marley) > cont supportive treatments with goal of improvement of encephalopathy and d/c to SNF; remains Full Code. - Spouse, Normal, willing to accept MRI after today's discussion. - Anticipate d/c to SNF, however not medically ready yet. Assessment & Plan (06/14/2022 2:26 PM LOGISTICS PROGRAM MANAGER): Multiple discussions with from prior teams (Dr. Barksdale and Dr. Marley) > cont supportive treatments with goal of improvement of encephalopathy and d/c to SNF; remains Full Code. - Spouse, Normal, willing to accept MRI after today's discussion. - Anticipate d/c to SNF, however not medically ready yet. Assessment & Plan (06/13/2022 4:22 PM LOGISTICS PROGRAM MANAGER): Multiple discussions with from prior teams (Dr. Barksdale and Dr. Marley) > cont supportive treatments with goal of improvement of encephalopathy and d/c to SNF; remains Full Code. - Spouse, Normal, willing to accept MRI after today's discussion. - Anticipate d/c to SNF, however not medically ready yet. Assessment & Plan (06/12/2022 6:19 PM LOGISTICS PROGRAM MANAGER): multiple discussions with , several times over past week and she reiterated similar goals as to Dr. Marley's note from 05/29 > cont supportive treatments with goal of improvement of encephalopathy and d/c to SNF; remains Full Code; does not want to pursue MRI for now at least - denied at [facility]; anticipate d/c to SNF once bed available, has accepting facility but no beds until late in week ([facility], [place], [facility]). Needs private room for nebulizer use (??), as unable to use MDIs. Additional updated 06/11 with same plan for full code and no MRI. Assessment & Plan (06/11/2022 4:34 PM LOGISTICS PROGRAM MANAGER): multiple discussions with , several times over past week and she reiterated similar goals as to Dr. Marley's note from 05/29 > cont supportive treatments with goal of improvement of encephalopathy and d/c to SNF; remains Full Code; does not want to pursue MRI for now at least - denied at [facility]; anticipate d/c to SNF once bed available, has accepting facility but no beds until late in week ([facility], [place], [facility]). Needs private room for nebulizer use, as unable to use MDIs. Additional updated 06/11 with same plan for full code and no MRI. Assessment & Plan (06/10/2022 3:25 PM LOGISTICS PROGRAM MANAGER): multiple discussions with , several times over past week and she reiterated similar goals as to Dr. Marley's note from 05/29 > cont supportive treatments with goal of improvement of encephalopathy and d/c to SNF; remains Full Code; does not want to pursue MRI for now at least - denied at [facility]; anticipate d/c to SNF once bed available, has accepting facility but no beds until late in week ([facility] extended care, [facility]). Needs private room for nebulizer use, as unable to use MDIs. Assessment & Plan (06/10/2022 9:26 AM LOGISTICS PROGRAM MANAGER): multiple discussions with , several times over past week and she reiterated similar goals as to Dr. Marley's note from 05/29 > cont supportive treatments with goal of improvement of encephalopathy and d/c to SNF; remains Full Code; does not want to pursue MRI for now at least - denied at [facility]; anticipate d/c to SNF once bed available, has accepting facility but no beds until late in week ([facility], [place], [facility]). Needs private room for nebulizer use, as unable to use MDIs. Assessment & Plan (06/08/2022 4:05 PM LOGISTICS PROGRAM MANAGER): multiple discussions with , several times over past week and she reiterated similar goals as to Dr. Marley's note from 05/29 > cont supportive treatments with goal of improvement of encephalopathy and d/c to SNF; remains FC; does not want to pursue MRI for now at least - denied at [facility]; anticipate d/c to SNF once bed available, has accepting facility but no beds until late in week ([facility] extended care, [facility]). Needs private room for Covid, nebulizer use. Assessment & Plan (06/07/2022 11:04 AM LOGISTICS PROGRAM MANAGER): multiple discussions with , several times over past week and she reiterated similar goals as to Dr. Marley's note from 05/29 > cont supportive treatments with goal of improvement of encephalopathy and d/c to SNF; remains FC; does not want to pursue MRI for now at least - denied at [facility]; anticipate d/c to SNF once bed available, has accepting facility but no beds until late in week ([facility], [place], [facility]) Assessment & Plan (06/06/2022 6:38 PM LOGISTICS PROGRAM MANAGER): multiple discussions with , several times over past week and she reiterated similar goals as to Dr. Marley's note from 05/29 > cont supportive treatments with goal of improvement of encephalopathy and d/c to SNF; remains FC; does not want to pursue MRI for now at least - denied at [facility]; anticipate d/c to SNF once bed available, has accepting facility but no beds until late in week ([facility], [place]) Assessment & Plan (06/05/2022 2:00 PM LOGISTICS PROGRAM MANAGER): - as above again d/w'd multiple times over past week and she reiterated similar goals as to Dr. Marley's note from 05/29 > cont supportive treatments with goal of improvement of encephalopathy and d/c to SNF; remains FC; does not want to pursue MRI for now at least - denied at [facility]; anticipate d/c to SNF later this week if stable, has accepting facility but no beds until late in week ([facility], [place]) Assessment & Plan (06/04/2022 11:09 AM LOGISTICS PROGRAM MANAGER): - as above again d/w'd 05/30 and she reiterated similar goals as to Dr. Marley's note from 05/29 > cont supportive treatments with goal of improvement of encephalopathy and d/c to SNF; remains FC; does not want to pursue MRI for now at least - denied at [facility]; anticipate d/c to SNF later this week if stable, has accepting facility but no beds until late in week ([facility], [place]) Assessment & Plan (06/03/2022 2:58 PM LOGISTICS PROGRAM MANAGER): - as above again d/w'd 05/30 and she reiterated similar goals as to Dr. Marley's note from 05/29 > cont supportive treatments with goal of improvement of encephalopathy and d/c to SNF; remains FC; does not want to pursue MRI for now at least - denied at [facility]; anticipate d/c to SNF next week if stable, has accepting facility but no beds until late in week ([facility], [place]) Assessment & Plan (06/02/2022 2:26 PM LOGISTICS PROGRAM MANAGER): - as above again d/w'd 05/30 and she reiterated similar goals as to Dr. Marley's note from 05/29 > cont supportive treatments with goal of improvement of encephalopathy and d/c to SNF; remains FC; does not want to pursue MRI for now at least Assessment & Plan (06/01/2022 2:18 PM LOGISTICS PROGRAM MANAGER): - as above again d/w'd 05/30 and she reiterated similar goals as to Dr. Marley's note from 05/29 > cont supportive treatments with goal of improvement of encephalopathy and d/c to SNF; remains FC; does not want to pursue MRI for now at least Assessment & Plan (05/31/2022 2:57 PM LOGISTICS PROGRAM MANAGER): - as above again d/w'd 05/30 and she reiterated similar goals as to Dr. Marley's note from 05/29 > cont supportive treatments with goal of improvement of encephalopathy and d/c to SNF; remains FC; does not want to pursue MRI for now at least Assessment & Plan (05/30/2022 2:03 PM LOGISTICS PROGRAM MANAGER): - as above again d/w'd and she reiterated similar goals as to Dr. Marley's note from 05/29 > cont supportive treatments with goal of improvement of encephalopathy and d/c to SNF; remains FC; does not want to pursue MRI for now at least Assessment & Plan (05/29/2022 3:14 PM LOGISTICS PROGRAM MANAGER): Ongoing discussions with patient's that I am unsure how much his mental status will improve, or how quickly. Also, he has now been essentially bedbound for 3 months, lessening his chances of good functional recovery. For now she would like to continue aggressive care, though she realizes that his prognosis will worsen as more time elapses without improvement. Full Code Assessment & Plan (05/28/2022 1:54 PM LOGISTICS PROGRAM MANAGER): Discussed with patient's yesterday and today that I am unsure how much his mental status will improve, or how quickly. Also, he has now been essentially bedbound for 3 months, lessening his chances of good functional recovery. For now she would like to continue aggressive care, though she realizes that his prognosis will worsen as more time elapses without improvement. Will continue goals of care discussions. Assessment & Plan (05/27/2022 3:55 PM LOGISTICS PROGRAM MANAGER): Discussed with patient's yesterday and today that I am unsure how much his mental status will improve, or how quickly. Also, he has now been essentially bedbound for 3 months, lessening his chances of good functional recovery. For now she would like to continue aggressive care, though she realizes that his prognosis will worsen as more time elapses without improvement. Will continue goals of care discussions. Encephalopathy 05/25/2022 03/18/2023 Assessment & Plan (07/14/2022 12:09 PM CDT): Likely multifactorial. Thought to be acute delirium and toxic-metabolic encephalopathy in setting of prolonged, complicated hospital course. Now improved to A&Ox2, actively participating in therapy, taking PO. - of note, rEEG 05/23/22 showed mod gen slowing without seizure activity, MRI under general anesthesia 06/26 without acute intercranial abnormality and Generalized brain atrophy and probable superimposed mild chronic microvascular ischemic change, similar to prior exams. - 07/05 placed in L shoe 05/18 c/f foot drop - Has accepting facility, has to be off of restraints for 48 hours which pt has been as off 07/14 Assessment & Plan (06/26/2022 5:09 PM CDT): Likely multifactorial. Initially thought to be acute delirium and toxic- metabolic encephalopathy, however a structural pathology hasn't been ruled out with MRI despite extensive counseling. Pt had complicated, prolonged course with PNA/aspiration, UTI, renal failure, pneumothorax, hypotension, ischemic bowel s/p ex lap. His rEEG showed mod gen slowing without seizure activity. CTH in past with frontal lesion but motion limited brain MR shows no evidence of acute large CVA. Apparently some concern about anoxic injury in the notes from earlier in hospitalization. - Awake, initially responded with high pitched moaning, shouting out episodically. Short words/phrases occasionally, but not conversational and not appropriate responses to questions and not redirect, so uanble to work with therapy at that time. No significant improvement over extended duration, trials of various meds outlined as below. 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 - E- Has become more awake with lower calcium levels p IV saline (family has noticed this pattern too). Recur when IVF stopped (TF with extra free water doesn't help). However recurrent hypernatremia with TF held 06/21 and increased vocalizations. Managing mobility limited by chair safely given his agitation. Cont to address this with nursing, family and ongoing fall concerns. Unclear source of water losses, not having diarrhea per RN, occasional small volume emesis, advanced TF flushes and IVF boluses. Replace condom cath as tolreated for more accurate I&O's - L- nurses have noticed that he seems to be in pain but has a hard time verbalizing it, cont ATC APAP. Low dose oxycodone bid (david given his CKD). Trial off the oxycodone 06/19-06/21 with increased agitation, vocalizations. Improved with resuming dosing. - I- Finish treatment of Klebsiella UTI, bryant removed, bladder scan neg for retention. Repeat tx Klebsiella UTI (?colonization) w/o significant change. - R- N/A - I- Plan MRI under general anesthesia. & son wish to proceed, knowing it might cause worsened cognition that might be long lasting, but also understand difficulty of not being sure there isn't a subtle process going on since he was fairly functional before surgery and now has had 3 months of lack of significant improvement in mental status. -u-bladder scan no retention, managed constipation BM with scheduled laxatives, recent KUB not acute. -M- no evidence of active cardiopulm process. -Treat hypercalcemia per renal, d/w pharmacist on approval & s/p denusumab 60mg x1 on 06/20 as inpt. Slow trend with improvement. - Trial of bolus TF in attempt to reduce time tethered to machine (thus less chemical and physical restraints), complicated by aspiration event 06/21. See elsewhere. Await repeat brain, spinal C/T MRIs under anesthesia 06/26 to further evaluate for structural or demyelinating process. Continue TF via GJ tube as of 06/21. No residuals noted. Remains unable to participate in rehab due to encephalopathy, routine services ordered for passive ROM, although near constant movement of extremities with good strength. No evidence of foot drop. DIspo planning: ongoing discussions with & son regarding options. Decline home with [facility] & private duty, agreeable to pursing [facility]it[facility]iary SNF at [place]. [place] requests SNF with therapy . Ongoing CM//SW discussions without decision on facility, ongoing encouragement. 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 Palliative care consulted 06/22 & appreciated. Discussed above at length with son 06/24 at bedside, [place] daily when present (most days). Marked improvement with resolution of hypercalcemia. Able to tolerate up to chair daily. Plan family meeting once MRI results obtained. Plan PT/OT reevaluation and SNF at [place]. List provided by CM. Await family decision. Assessment & Plan (06/25/2022 10:18 AM CDT): Likely multifactorial. Initially thought to be acute delirium and toxic- metabolic encephalopathy, however a structural pathology hasn't been ruled out with MRI despite extensive counseling. Pt had complicated, prolonged course with PNA/aspiration, UTI, renal failure, pneumothorax, hypotension, ischemic bowel s/p ex lap. His rEEG showed mod gen slowing without seizure activity. CTH in past with frontal lesion but motion limited brain MR shows no evidence of acute large CVA. Apparently some concern about anoxic injury in the notes from earlier in hospitalization. - Awake, but responds with high pitched moaning, shouting out episodically. Short words/phrases occasionally, but not conversational and not appropriate responses to questions. Does not redirect, uanble to work with therapy. No significant improvement over extended duration, trials of various meds outlined as below. 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 - E- Has become more awake with lower calcium levels p IV saline (family has noticed this pattern too). Recur when IVF stopped (TF with extra free water doesn't help). However recurrent hypernatremia with TF held 06/21 and increased vocalizations. Managing mobility limited by chair safely given his agitation. Cont to address this with nursing, family and ongoing fall concerns. Unclear source of water losses, not having diarrhea per RN, occasional small volume emesis, advanced TF flushes and IVF boluses. Replace condom cath as tolreated for more accurate I&O's - L- nurses have noticed that he seems to be in pain but has a hard time verbalizing it, cont ATC APAP. Low dose oxycodone bid (david given his CKD). Trial off the oxycodone 06/19-06/21 with increased agitation, vocalizations. Improved with resuming dosing. - I- Finish treatment of Klebsiella UTI, bryant removed, bladder scan neg for retention. Repeat tx Klebsiella UTI (?colonization) w/o significant change. - R- N/A - I- Plan MRI under general anesthesia. & son wish to proceed, knowing it might cause worsened cognition that might be long lasting, but also understand difficulty of not being sure there isn't a subtle process going on since he was fairly functional before surgery and now has had 3 months of lack of significant improvement in mental status. -u-bladder scan no retention, managed constipation BM with scheduled laxatives, recent KUB not acute. -M- no evidence of active cardiopulm process. -Treat hypercalcemia per renal, d/w pharmacist on approval & s/p denusumab 60mg x1 on 06/20 as inpt. Slow trend with improvement. - Trial of bolus TF in attempt to reduce time tethered to machine (thus less chemical and physical restraints), complicated by aspiration event 06/21. See elsewhere. Await repeat brain, spinal C/T MRIs under anesthesia 06/26 to further evaluate for structural or demyelinating process. Continue TF via GJ tube as of 06/21. No residuals noted. Remains unable to participate in rehab due to encephalopathy, routine services ordered for passive ROM, although near constant movement of extremities with good strength. No evidence of foot drop. DIspo planning: ongoing discussions with & son regarding options. Decline home with [facility] & private duty, agreeable to pursing [facility] SNF at [place]. [place] requests SNF with therapy . Ongoing CM//SW discussions without decision on facility, ongoing encouragement. Reiterated time may allow brain to heal, discussed benefits of set routine in managing behaviors jail. Palliative care consulted 06/22 & appreciated. Discussed above at length with son 06/24 at bedside. Plan family meeting once MRI results obtained. Plan [facility] SNF at [place]. List provided by CM. Await family decision. Assessment & Plan (06/24/2022 5:02 PM LOGISTICS PROGRAM MANAGER): Likely multifactorial. Initially thought to be acute delirium and toxic- metabolic encephalopathy, however a structural pathology hasn't been ruled out with MRI despite extensive counseling. Pt had complicated, prolonged course with PNA/aspiration, UTI, renal failure, pneumothorax, hypotension, ischemic bowel s/p ex lap. His rEEG showed mod gen slowing without seizure activity. CTH in past with frontal lesion but motion limited brain MR shows no evidence of acute large CVA. Apparently some concern about anoxic injury in the notes from earlier in hospitalization. - Awake, but responds with high pitched moaning, shouting out episodically. Short words/phrases occasionally, but not conversational and not appropriate responses to questions. Does not redirect, uanble to work with therapy. No significant improvement over extended duration, trials of various meds outlined as below. 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 - E- Has become more awake with lower calcium levels p IV saline (family has noticed this pattern too). Recur when IVF stopped (TF with extra free water doesn't help). However recurrent hypernatremia with TF held 06/21 and increased vocalizations. Managing mobility limited by chair safely given his agitation. Cont to address this with nursing, family and ongoing fall concerns. - L- nurses have noticed that he seems to be in pain but has a hard time verbalizing it, cont ATC APAP. Low dose oxycodone bid (david given his CKD). Trial off the oxycodone 06/19-06/21 with increased agitation, vocalizations. Improved with resuming dosing. - I- Finish treatment of Klebsiella UTI, bryant removed, bladder scan neg for retention. Repeat tx Klebsiella UTI (?colonization) w/o significant change. - R- N/A - I- Plan MRI under general anesthesia. & son wish to proceed, knowing it might cause worsened cognition that might be long lasting, but also understand difficulty of not being sure there isn't a subtle process going on since he was fairly functional before surgery and now has had 3 months of lack of significant improvement in mental status. -u-bladder scan no retention, managed constipation BM with scheduled laxatives, recent KUB not acute. -M- no evidence of active cardiopulm process. -Treat hypercalcemia per renal, d/w pharmacist on approval & s/p denusumab 60mg x1 on 06/20 as inpt. - Trial of bolus TF in attempt to reduce time tethered to machine (thus less chemical and physical restraints), complicated by aspiration event 06/21. See elsewhere. Await repeat brain, spinal C/T MRIs under anesthesia 06/26 to further evaluate for structural or demyelinating process. Continue TF via GJ tube as of 06/21. No residuals noted. Remains unable to participate in rehab due to encephalopathy, routine services ordered for passive ROM, although near constant movement of extremities with good strength. No evidence of foot drop. DIspo planning: ongoing discussions with & son regarding options. Decline home with HH & private duty, agreeable to pursing [facility] SNF at [place]. [place] requests SNF with therapy . Ongoing CM//SW discussions without decision on facility, ongoing encouragement. Reiterated time may allow brain to heal, discussed benefits of set routine in managing behaviors jail. Palliative care consulted 06/22 & appreciated. Discussed above at length with son 06/24 at bedside. Plan family meeting once MRI results obtained. Plan SNF at [place]. List provided by CM. Await family decision. Assessment & Plan (06/23/2022 3:47 PM LOGISTICS PROGRAM MANAGER): Likely multifactorial. Initially thought to be acute delirium and toxic- metabolic encephalopathy, however a structural pathology hasn't been ruled out with MRI. Pt had prolonged course with PNA/aspiration, UTI, renal failure, pneumothorax, hypotension, ischemic bowel s/p ex lap. His rEEG showed mod gen slowing without seizure activity. CTH in past with frontal lesion but motion limited brain MR shows no evidence of acute large CVA. Apparently some concern about anoxic injury in the notes from earlier in hospitalization. - Awake, but responds with high pitched moaning, shouting out episodically. Short words/phrases occasionally, but not conversational and not appropriate responses to questions. Does not redirect. 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 - E- Has become more awake again with his calcium being driven down with IV saline (family has noticed this pattern too). Likely will recur when IVF stopped (TF with extra free water doesn't help). However recurrent hypernatremia with TF held 06/21 and increased vocalizations. Not sure how get him out of bed into a chair safely given his agitation. Cont to address this with nursing and ongoing fall concerns. - L- nurses have noticed that he seems to be in pain but has a hard time verbalizing it, cont ATC APAP. Low dose oxycodone bid (david given his CKD). Trial off the oxycodone 06/19-06/21 with increased agitation, vocalizations. - I- Finish treatment of Klebsiella UTI, bryant removed, bladder scan neg for retention. Repeat tx Klebsiella UTI (?colonization) w/o significant change. - R- N/A - I- Plan MRbrain under general anesthesia. wishes to proceed, knowing it might cause worsened cognition that might be long lasting, but also understand difficulty of not being sure there isn't a subtle process going on since he was fairly functional before surgery and now has had 3 months of delirium. -u-bladder scan no retention, managed constipation BM with scheduled laxatives, recent KUB not acute. -M- no evidence of active cardiopulm process. -Treat hypercalcemia per renal, d/w pharmacist on approval & s/p denusumab 60mg x1 on 06/20 as inpt. - Trial of bolus TF in attempt to reduce time tethered to machine (thus less chemical and physical restraints), complicated by aspiration event 06/21. See elsewhere. Await repeat brain MRI under anesthesia 06/26 to further evaluate for structural or demyelinating process. Continue TF via GJ tube as of 06/21. No residuals noted. Unable to participate in rehab due to encephalopathy, routine services ordered for passive ROM. No evidence of foot drop with good strength intact bilaterally. DIspo planning: ongoing discussions with regarding options of home with [facility] & private duty vs penitentiary SNF at [place]. Ayaka requests SNF with therapy . Ongoing CM//SW discussions without decision. Palliative care consulted 06/22. Anticipate son to arrive 06/24. Plan family meeting once MRI results obtained. Assessment & Plan (06/22/2022 4:09 PM LOGISTICS PROGRAM MANAGER): Likely multifactorial. Thought to be acute delirium and toxic-metabolic encephalopathy, however a structural pathology hasn't been ruled out with MRI. Pt had prolonged course with PNA/aspiration, UTI, renal failure, pneumothorax, hypotension, ischemic bowel s/p ex lap. His rEEG showed mod gen slowing without seizure activity. CTH in past with frontal lesion but MR yesterday shows no evidence of acute CVA. Apparently some concerned about anoxic injury in the notes from earlier in hospitalization. - Awake, but responds with high pitched moaning, shouting out episodically. Short words/phrases occasionally, but not conversational and not appropriate responses to questions. 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 - E- Has become more awake again with his calcium being driven down with IV saline (family has noticed this pattern too). Likely will recur when IVF stopped (TF with extra free water doesn't help). However recurrent hypernatremia with TF held 06/21 and increased vocalizations. Not sure how get him out of bed into a chair safely given his agitation. Cont to address this with nursing and ongoing fall concerns. - L- nurses have noticed that he seems to be in pain but has a hard time verbalizing it, cont ATC APAP. Low dose oxycodone bid (david given his CKD). Trial off the oxycodone 06/19-06/21 with increased agitation, vocalizations. - I- Finish treatment of Klebsiella UTI, bryant removed, bladder scan neg for retention. Repeat tx Klebsiella UTI (?colonization) w/o significant change. - R- N/A - I- Plan MRbrain under general anesthesia. wishes to proceed, knowing it might cause worsened cognition that might be long lasting, but also understand difficulty of not being sure there isn't a subtle process going on since he was fairly functional before surgery and now has had 3 months of delirium. -u-bladder scan no retention, managed constipation BM with scheduled laxatives, recent KUB not acute. -M- no evidence of active cardiopulm process. -Treat hypercalcemia per renal, d/w pharmacist on approval & s/p denusumab 60mg x1 on 06/20 as inpt. - Trial of bolus TF in attempt to reduce time tethered to machine (thus less chemical and physical restraints), complicated by aspiration event 06/21. See elsewhere. Await repeat MRI under anesthesia 06/26 to further evaluate for structural or demyelinating process. Continue TF via GJ tube as of 06/21. No residuals noted. Unable to participate in rehab due to encephalopathy, routine services ordered for passive ROM. No evidence of foot drop with good strength intact bilaterally. DIspo planning: ongoing discussions with regarding options of home with [facility] & private duty vs penitentiary SNF at [place]. Ayaka requests SNF with therapy . Ongoing CM//SW discussions without decision. Palliative care consulted 06/22. Plan family meeting once MRI results obtained. Assessment & Plan (06/21/2022 3:22 PM LOGISTICS PROGRAM MANAGER): Likely multifactorial. Thought to be acute delirium and toxic-metabolic encephalopathy, however a structural pathology hasn't been ruled out with MRI. Pt had prolonged course with PNA/aspiration, UTI, renal failure, pneumothorax, hypotension, ischemic bowel s/p ex lap. His rEEG showed mod gen slowing without seizure activity. CTH in past with frontal lesion but MR yesterday shows no evidence of acute CVA. Apparently some concerned about anoxic injury in the notes from earlier in hospitalization. - Much more awake, now but he responds with high pitched moaning at times. 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 - E- Has become more awake again with his calcium being driven down with IV saline (family has noticed this pattern too). Likely will recur when IVF stopped (TF with extra free water doesn't help). Not sure how get him out of bed into a chair safely given his agitation. Cont to address this with nursing. - L- nurses have noticed that he seems to be in pain but has a hard time verbalizing it, cont ATC APAP. Low dose oxycodone bid (david given his CKD). Can trial off the oxycodone too to see if it helps. - I- Finish treatment of Klebsiella UTI, bryant removed, check bladder scan to see if he's retaining. - R- N/A - I- Cont discussions regarding MRbrain under general anesthesia knowing it might cause worsened cognition that might be long lasting, but also understand difficulty of not being sure there isn't a subtle process going on since he was fairly functional before surgery and now has had 3 months of delirium. -u-bladder scan no retention, managed constipation BM with scheduled laxatives, recent KUB not acute. -M- no evidence of active cardiopulm process. -Treat hypercalcemia per renal, d/w pharmacist on approval & s/p denusumab 60mg x1 on 06/20 as inpt. - Trial of bolus TF to reduce time tethered to machine (thus less chemical and physical restraints), complicated by aspiration event 06/21. See elsewhere. Await repeat MRI under anesthesia to further evaluate for structural or demyelinating process. Unable to participate in rehab due to encephalopathy, plan home with [facility] vs penitentiary SNF at [place]. Ongoing CM//SW discussions for dispo planning. Will attempt family meeting once MRI results obtained. Assessment & Plan (06/20/2022 6:08 PM LOGISTICS PROGRAM MANAGER): Likely multifactorial. Thought to be acute delirium and toxic-metabolic encephalopathy, however a structural pathology hasn't been ruled out with MRI. Pt had prolonged course with PNA/aspiration, UTI, renal failure, pneumothorax, hypotension, ischemic bowel s/p ex lap. His rEEG showed mod gen slowing without seizure activity. CTH in past with frontal lesion but MR yesterday shows no evidence of acute CVA. Apparently some concerned about anoxic injury in the notes from earlier in hospitalization. - Much more awake, now but he responds with high pitched moaning at times. 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 - E- Has become more awake again with his calcium being driven down with IV saline (family has noticed this pattern too). Likely will recur when IVF stopped (TF with extra free water doesn't help). Not sure how get him out of bed into a chair safely given his agitation. Cont to address this with nursing. - L- nurses have noticed that he seems to be in pain but has a hard time verbalizing it, cont ATC APAP. Low dose oxycodone bid (david given his CKD). Can trial off the oxycodone too to see if it helps. - I- Finish treatment of Klebsiella UTI, bryant removed, check bladder scan to see if he's retaining. - R- N/A - I- Cont discussions regarding MRbrain under general anesthesia knowing it might cause worsened cognition that might be long lasting, but also understand difficulty of not being sure there isn't a subtle process going on since he was fairly functional before surgery and now has had 3 months of delirium. -u-bladder scan pending, no BM the last few days started on laxatives, recent KUB not acute. -M- no evidence of active cardiopulm process. -Treat hypercalcemia per renal, d/w pharmacist on approval for dosing denusumab as inpt. - bolus TF to reduce time tethered to machine (thus less chemical and physical restraints). Assessment & Plan (06/16/2022 11:57 AM LOGISTICS PROGRAM MANAGER): Likely multifactorial. Thought to be acute delirium and toxic-metabolic encephalopathy, however a structural pathology hasn't been ruled out with MRI. Pt had prolonged course with PNA/aspiration, UTI, renal failure, pneumothorax, hypotension, ischemic bowel s/p ex lap. His rEEG showed mod gen slowing without seizure activity. CT head most recently with apparent new area of hypodensity in anterior right frontal lobe which may be artifactual vs infarction, which Neuro thinks better from prior. - Neurology recommended brain MRI. Initially with CrCl<30 and family deferring test. Readdressed it today and , Ayaka, is willing to accept getting the MRI. We will make medication changes today and reassess tomorrow. - Ayaka understands overall that this is going to be a long recovery (if he's able to fully recover), but wants to continue supportive measures to help his encephalopathy - continue management of hypercalcemia as below - possible this is contributing some though confusion seemed to precede Ca issues too - renal function continues to stabilize so uremia less likely to be playing an ongoing role -S/p PEG tube for feeding, seen by speech 05/30 NPO. Advanced to dysphagia 1 diet with nectar thick liquids, poor tolerance and resumed NPO status. -Continue Zoloft to 50 mg -Discontinue Seroquel -Scheduling tylenol q6h for its benefit with acute agitation. -Not medically ready to discharge. -Continue aspiration precautions. -Trial dose of oxycodone Assessment & Plan (06/15/2022 1:22 PM LOGISTICS PROGRAM MANAGER): Likely multifactorial. Thought to be acute delirium and toxic-metabolic encephalopathy, however a structural pathology hasn't been ruled out with MRI. Pt had prolonged course with PNA/aspiration, UTI, renal failure, pneumothorax, hypotension, ischemic bowel s/p ex lap. His rEEG showed mod gen slowing without seizure activity. CT head most recently with apparent new area of hypodensity in anterior right frontal lobe which may be artifactual vs infarction, which Neuro thinks better from prior. - Neurology recommended brain MRI. Initially with CrCl<30 and family deferring test. Readdressed it today and , Ayaka, is willing to accept getting the MRI. We will make medication changes today and reassess tomorrow. - Ayaka understands overall that this is going to be a long recovery (if he's able to fully recover), but wants to continue supportive measures to help his encephalopathy - continue management of hypercalcemia as below - possible this is contributing some though confusion seemed to precede Ca issues too - renal function continues to stabilize so uremia less likely to be playing an ongoing role -S/p PEG tube for feeding, seen by speech 05/30 NPO. Advanced to dysphagia 1 diet with nectar thick liquids, poor tolerance and resumed NPO status. -Continue Zoloft to 50 mg -Discontinue Seroquel -Scheduling tylenol q6h for its benefit with acute agitation. -Not medically ready to discharge. -Continue aspiration precautions. Assessment & Plan (06/14/2022 2:26 PM LOGISTICS PROGRAM MANAGER): Likely multifactorial. Thought to be acute delirium and toxic-metabolic encephalopathy, however a structural pathology hasn't been ruled out with MRI. Pt had prolonged course with PNA/aspiration, UTI, renal failure, pneumothorax, hypotension, ischemic bowel s/p ex lap. His rEEG showed mod gen slowing without seizure activity. CT head most recently with apparent new area of hypodensity in anterior right frontal lobe which may be artifactual vs infarction, which Neuro thinks better from prior. - Neurology recommended brain MRI. Initially with CrCl<30 and family deferring test. Readdressed it today and , Ayaka, is willing to accept getting the MRI. We will make medication changes today and reassess tomorrow. - Ayaka understands overall that this is going to be a long recovery (if he's able to fully recover), but wants to continue supportive measures to help his encephalopathy - continue management of hypercalcemia as below - possible this is contributing some though confusion seemed to precede Ca issues too - renal function continues to stabilize so uremia less likely to be playing an ongoing role -S/p PEG tube for feeding, seen by speech 05/30 NPO. Advanced to dysphagia 1 diet with nectar thick liquids, poor tolerance and resumed NPO status. -Continue Zoloft to 50 mg -Discontinue Seroquel -Scheduling tylenol q6h for its benefit with acute agitation. -Not medically ready to discharge. -Continue aspiration precautions. Assessment & Plan (06/13/2022 4:10 PM LOGISTICS PROGRAM MANAGER): Likely multifactorial. Thought to be acute delirium and toxic-metabolic encephalopathy, however a structural pathology hasn't been ruled out with MRI. Pt had prolonged course with PNA/aspiration, UTI, renal failure, pneumothorax, hypotension, ischemic bowel s/p ex lap. His rEEG showed mod gen slowing without seizure activity. CT head most recently with apparent new area of hypodensity in anterior right frontal lobe which may be artifactual vs infarction, which Neuro thinks better from prior. - Neurology recommended brain MRI. Initially with CrCl<30 and family deferring test. Readdressed it today and , Ayaka, is willing to accept getting the MRI. We will make medication changes today and reassess tomorrow. - Ayaka understands overall that this is going to be a long recovery (if he's able to fully recover), but wants to continue supportive measures to help his encephalopathy - continue management of hypercalcemia as below - possible this is contributing some though confusion seemed to precede Ca issues too - renal function continues to stabilize so uremia less likely to be playing an ongoing role -S/p PEG tube for feeding, seen by speech 05/30 NPO. Advanced to dysphagia 1 diet with nectar thick liquids, poor tolerance and resumed NPO status. -Continue Zoloft to 50 mg -Discontinue Seroquel -Scheduling tylenol q6h for its benefit with acute agitation. -Not medically ready to discharge. -Continue aspiration precautions. Assessment & Plan (06/12/2022 6:16 PM LOGISTICS PROGRAM MANAGER): Likely multifactorial ISO initial delirium and toxic-metabolic encephalopathy. Pt had prolonged course with PNA/aspiration, UTI, renal failure, pneumothorax, hypotension, ischemic bowel s/p ex lap. His rEEG showed mod gen slowing without seizure activity. CT head most recently with apparent new area of hypodensity in anterior right frontal lobe which may be artifactual vs infarction, which Neuro thinks better from prior. - Neurology recommended brain MRI. Shouldn't get IV contrast due to current creat clearance (30), and he may need it under anesthesia . Ultimately his said she'd like to defer MRI for now (readdressed multiple times over last week , including 06/11 and she wants to defer) - Ayaka understands overall that this is going to be a long recovery (if he's able to fully recover), but wants to continue supportive measures to help his encephalopathy - continue management of hypercalcemia as below - possible this is contributing some though confusion seemed to precede Ca issues too - renal function continues to stabilize so uremia less likely to be playing an ongoing role -S/p PEG tube for feeding, seen by speech 05/30 NPO. Advanced to dysphagia 1 diet with nectar thick liquids, poor tolerance and resumed NPO status. - decreased Zoloft to 50 mg at 's request - Stable new baseline, potential for very slow recover from this prolonged encephalopathy/hospitalization. NO significant change in weeks. - cont nightly Seroquel (started 05/28) -unclear contribution of recent covid diagnosis, but unlikely given symptoms predated infection. Continue aspiration precautions. Awaiting SNF, medically stable for transfer. DCed tylenol PRN.Covid precautions lifted, spoke with IP to clear. Billing statement I have personally reviewed HCT findings with R frontal lobe abnormality, neurology recs for brain MRI & assessed clinical response to seroquel Plan to follow family wishes to defer imaging at this time. No acute decline in clinical status. Plan to continue current medications (SSRI, seroquel) and ADAT. Removed covid Precautions. Plan transfer to SNF once bed available. Discussed with CM expanding SNF search 06/12 Assessment & Plan (06/11/2022 4:30 PM LOGISTICS PROGRAM MANAGER): Likely multifactorial ISO initial delirium and toxic-metabolic encephalopathy. Pt had prolonged course with PNA/aspiration, UTI, renal failure, pneumothorax, hypotension, ischemic bowel s/p ex lap. His rEEG showed mod gen slowing without seizure activity. CT head most recently with apparent new area of hypodensity in anterior right frontal lobe which may be artifactual vs infarction, which Neuro thinks better from prior. - Neurology recommended brain MRI. Shouldn't get IV contrast due to current creat clearance (30), and he may need it under anesthesia . Ultimately his said she'd like to defer MRI for now (readdressed multiple times over last week , including 06/11 and she wants to defer) - Ayaka understands overall that this is going to be a long recovery (if he's able to fully recover), but wants to continue supportive measures to help his encephalopathy - continue management of hypercalcemia as below - possible this is contributing some though confusion seemed to precede Ca issues too - renal function continues to stabilize so uremia less likely to be playing an ongoing role -S/p PEG tube for feeding, seen by speech 05/30 NPO. Advanced to dysphagia 1 diet with nectar thick liquids. - decreased Zoloft to 50 mg at 's request - May be developing new baseline, or may be very slow to recover from this prolonged delirium/hospitalization. NO significant change in weeks. - cont nightly Seroquel (started 05/28) -unclear contributing of recent covid diagnosis, but unlikely given predating symptoms. Continue aspiration precautions. Calorie count. Awaiting SNF, medically stable for transfer. DCed tylenol PRN. Await covid precautions lifted, spoke with IP to clear. Billing statement I have personally reviewed HCT findings with R frontal lobe abnormality, neurology recs for brain MRI & assessed clinical response to seroquel Plan to follow family wishes to defer imaging at this time. No acute decline in clinical status. Plan to continue current medications (SSRI, seroquel) and ADAT. Removed covid Precautions. Plan transfer to SNF once bed available. Assessment & Plan (06/10/2022 3:21 PM LOGISTICS PROGRAM MANAGER): 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 Pt had prolonged course with PNA/aspiration, UTI, renal failure, pneumothorax, hypotension, ischemic bowel s/p ex lap. His rEEG showed mod gen slowing without seizure activity. CT head most recently with apparent new area of hypodensity in anterior right frontal lobe which may be artifactual vs infarction, which Neuro thinks better from prior. - Neurology recommended brain MRI. Shouldn't get IV contrast due to current creat clearance (30), and he may need it under anesthesia . Ultimately his said she'd like to defer MRI for now (readdressed multiple times over last week > she wants to defer) - Ayaka understands overall that this is going to be a long recovery (if he's able to fully recover), but wants to continue supportive measures to help his encephalopathy - continue management of hypercalcemia as below - possible this is contributing some though delirium seemed to precede Ca issues too - renal function continues to stabilize so uremia less likely to be playing an ongoing role -PEG tube for feeding, seen by speech 05/30 NPO. Advanced to dysphagia 1 diet with nectar thick liquids. - decreased Zoloft to 50 mg at 's request - May be developing new baseline, or may be very slow to recover from this prolonged delirium/hospitalization - cont nightly Seroquel (started 05/28) -unclear contributing of recent covid diagnosis, but unlikely given predating symptoms. MBS 06/08 advanced to regular diet with nectar thick liquids. Continue aspiration precautions. Calorie count. Awaiting SNF, medically stable for transfer. DCed tylenol PRN. Await covid precautions lifted, spoke with IP to clear. Billing statement I have personally reviewed HCT findings with R frontal lobe abnormality, neurology recs for brain MRI & assessed clinical response to seroquel Plan to follow family wishes to defer imaging at this time. No acute decline in clinical status. Plan to continue current medications (SSRI, seroquel) and ADAT. Plan remove covid Precautions and transfer to SNF once bed available. Assessment & Plan (06/10/2022 9:22 AM LOGISTICS PROGRAM MANAGER): 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 Pt had prolonged course with PNA/aspiration, UTI, renal failure, pneumothorax, hypotension, ischemic bowel s/p ex lap. His rEEG showed mod gen slowing without seizure activity. CT head most recently with apparent new area of hypodensity in anterior right frontal lobe which may be artifactual vs infarction, which Neuro thinks better from prior. - Neurology recommended brain MRI. Shouldn't get IV contrast due to current creat clearance (30), and he may need it under anesthesia . Ultimately his said she'd like to defer MRI for now (readdressed multiple times over last week > she wants to defer) - Ayaka understands overall that this is going to be a long recovery (if he's able to fully recover), but wants to continue supportive measures to help his encephalopathy - continue management of hypercalcemia as below - possible this is contributing some though delirium seemed to precede Ca issues too - renal function continues to stabilize so uremia less likely to be playing an ongoing role -PEG tube for feeding, seen by speech 2/14 NPO. Advanced to dysphagia 1 diet with nectar thick liquids. - decreased Zoloft to 50 mg at 's request - May be developing new baseline, or may be very slow to recover from this prolonged delirium/hospitalization - cont nightly Seroquel (started 05/28) -unclear contributing of recent covid diagnosis, but unlikely given predating symptoms. MBS 06/08 advanced to regular diet with nectar thick liquids. Continue aspiration precautions. Calorie count. Awaiting SNF, medically stable for transfer. Await covid precautions lifted. Billing statement I have personally reviewed HCT findings with R frontal lobe abnormality, neurology recs for brain MRI & assessed clinical response to seroquel Plan to follow family wishes to defer imaging at this time. No acute decline in clinical status. Plan to continue current medications (SSRI, seroquel) and ADAT. 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 Pt had prolonged course with PNA/aspiration, UTI, renal failure, pneumothorax, hypotension, ischemic bowel s/p ex lap. His rEEG showed mod gen slowing without seizure activity. CT head most recently with apparent new area of hypodensity in anterior right frontal lobe which may be artifactual vs infarction, which Neuro thinks better from prior. - Neurology recommended brain MRI. Shouldn't get IV contrast due to current creat clearance (30), and he may need it under anesthesia . Ultimately his said she'd like to defer MRI for now (readdressed multiple times over last week > she wants to defer) - Ayaka understands overall that this is going to be a long recovery (if he's able to fully recover), but wants to continue supportive measures to help his encephalopathy - continue management of hypercalcemia as below - possible this is contributing some though delirium seemed to precede Ca issues too - renal function continues to stabilize so uremia less likely to be playing an ongoing role -PEG tube for feeding, seen by speech 2/14 NPO. Advanced to dysphagia 1 diet with nectar thick liquids. - decreased Zoloft to 50 mg at 's request - May be developing new baseline, or may be very slow to recover from this prolonged delirium/hospitalization - cont nightly Seroquel (started 05/28) -unclear contributing of recent covid diagnosis, but unlikely given predating symptoms. MBS 06/08 advanced to regular diet with nectar thick liquids. Continue aspiration precautions. Calorie count. Awaiting SNF, medically stable for transfer. Billing statement I have personally reviewed HCT findings with R frontal lobe abnormality, neurology recs for brain MRI & assessed clinical response to seroquel Plan to follow family wishes to defer imaging at this time. No acute decline in clinical status. Plan to continue current medications (SSRI, seroquel) and ADAT until reaches calorie goals/adequacy. 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 Pt had prolonged course with PNA/aspiration, UTI, renal failure, pneumothorax, hypotension, ischemic bowel s/p ex lap. His rEEG showed mod gen slowing without seizure activity. CT head most recently with apparent new area of hypodensity in anterior right frontal lobe which may be artifactual vs infarction, which Neuro thinks better from prior. - Neurology recommended brain MRI. Shouldn't get IV contrast due to current creat clearance (30), and he may need it under anesthesia . Ultimately his said she'd like to defer MRI for now (readdressed multiple times over last week > she wants to defer) - Ayaka understands overall that this is going to be a long recovery (if he's able to fully recover), but wants to continue supportive measures to help his encephalopathy - continue management of hypercalcemia as below - possible this is contributing some though delirium seemed to precede Ca issues too - renal function continues to stabilize so uremia less likely to be playing an ongoing role -PEG tube for feeding, seen by speech 05/30 still recommend NPO - decreased Zoloft to 50 mg at 's request - May be developing new baseline, or may be very slow to recover from this prolonged delirium/hospitalization - cont nightly Seroquel (started 05/28) -unclear contributing of recent covid diagnosis, but unlikely given predating symptoms. Billing statement I have personally reviewed HCT findings with R frontal lobe abnormality, neurology recs for brain MRI & assessed clinical response to seroquel Plan to follow family wishes and consistently wishes to defer imaging at this time. No acute decline in clinical status. 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 Pt had prolonged course with PNA/aspiration, UTI, renal failure, pneumothorax, hypotension, ischemic bowel s/p ex lap. His rEEG showed mod gen slowing without seizure activity. CT head most recently with apparent new area of hypodensity in anterior right frontal lobe which may be artifactual vs infarction, which Neuro thinks better from prior. - Neurology recommended brain MRI. Shouldn't get IV contrast due to current creat clearance (30), and he may need it under anesthesia . Ultimately his said she'd like to defer MRI for now (readdressed multiple times over last week > she wants to defer) - Ayaka understands overall that this is going to be a long recovery (if he's able to fully recover), but wants to continue supportive measures to help his encephalopathy - continue management of hypercalcemia as below - possible this is contributing some though delirium seemed to precede Ca issues too - renal function continues to stabilize so uremia less likely to be playing an ongoing role -PEG tube for feeding, seen by speech 05/30 still recommend NPO - decreased Zoloft to 50 mg at 's request - May be developing new baseline, or may be very slow to recover from this prolonged delirium/hospitalization - cont nightly Seroquel (started 05/28) -unclear contributing of recent covid diagnosis, but unlikely given predating symptoms. Billing statement I have personally reviewed HCT findings with R frontal lobe abnormality, neurology recs for brain MRI Plan to follow family wishes and defer imaging at this time. No acute decline in clinical status. 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 Pt had prolonged course with PNA/aspiration, UTI, renal failure, pneumothorax, hypotension, ischemic bowel s/p ex lap. His rEEG showed mod gen slowing without seizure activity. CT head most recently with apparent new area of hypodensity in anterior right frontal lobe which may be artifactual vs infarction, which Neuro thinks better from prior. - Neurology recommended brain MRI. Shouldn't get IV contrast due to current creat clearance, and he may need it under anesthesia . Ultimately his said she'd like to defer MRI for now (readdressed multiple times over last week > she wants to defer) - Ayaka understands overall that this is going to be a long recovery (if he's able to fully recover), but wants to continue supportive measures to help his encephalopathy - continue management of hypercalcemia as below - possible this is contributing some though delirium seemed to precede Ca issues too - renal function continues to stabilize so uremia less likely to be playing an ongoing role -PEG tube for feeding, seen by speech 05/30 still recommend NPO - decreased Zoloft to 50 mg at 's request - May be developing new baseline, or may be very slow to recover from this prolonged delirium/hospitalization - cont nightly Seroquel (started 05/28) Assessment & Plan (06/04/2022 10:59 AM LOGISTICS PROGRAM MANAGER): - 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 Pt had prolonged course with PNA/aspiration, UTI, renal failure, pneumothorax, hypotension, ischemic bowel s/p ex lap. His rEEG showed mod gen slowing without seizure activity. CT head most recently with apparent new area of hypodensity in anterior right frontal lobe which may be artifactual vs infarction, which Neuro thinks better from prior. - Neurology recommended brain MRI. Shouldn't get IV contrast due to current creat clearance, and he would likely need it under anesthesia . Ultimately his said she'd like to defer MRI for now (readdressed again on 06/03 > again wants to defer) - Ayaka understands overall that this is going to be a long recovery (if he's able to fully recover), but wants to continue supportive measures to help his encephalopathy - continue management of hypercalcemia as below - possible this is contributing some though delirium seemed to precede Ca issues too - renal function continues to stabilize so uremia less likely to be playing an ongoing role -PEG tube for feeding, seen by speech 05/30 still recommend NPO - decreased Zoloft to 50 mg at 's request - May be developing new baseline, or may be very slow to recover from this prolonged delirium/hospitalization - cont nightly Seroquel (started 05/28) Assessment & Plan (06/03/2022 2:55 PM LOGISTICS PROGRAM MANAGER): - 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 Pt had prolonged course with PNA/aspiration, UTI, renal failure, pneumothorax, hypotension, ischemic bowel s/p ex lap. His rEEG showed mod gen slowing without seizure activity. CT head most recently with apparent new area of hypodensity in anterior right frontal lobe which may be artifactual vs infarction, which Neuro thinks better from prior. - Neurology recommended brain MRI. Shouldn't get IV contrast due to current creat clearance, and he would likely need it under anesthesia . Ultimately his said she'd like to defer MRI for now (readdressed again on 06/03 > again wants to defer) - Ayaka understands overall that this is going to be a long recovery (if he's able to fully recover), but wants to continue supportive measures to help his encephalopathy -continue management of hypercalcemia as below - renal function continues to stabilize so uremia less likely to be playing an ongoing role -PEG tube for feeding, seen by speech 05/30 still recommend NPO - decreased Zoloft to 50 mg at 's request - May be developing new baseline, or may be very slow to recover from this prolonged delirium/hospitalization - cont nightly Seroquel (started 05/28) Assessment & Plan (06/02/2022 2:24 PM LOGISTICS PROGRAM MANAGER): - 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 Pt had prolonged course with PNA/aspiration, UTI, renal failure, pneumothorax, hypotension, ischemic bowel s/p ex lap. His rEEG showed mod gen slowing without seizure activity. CT head most recently with apparent new area of hypodensity in anterior right frontal lobe which may be artifactual vs infarction, which Neuro thinks better from prior. - Neurology recommended brain MRI. Shouldn't get IV contrast due to current creat clearance, and he would likely need it under anesthesia . Ultimately his said she'd like to defer MRI for now - Ayaka understands overall that this is going to be a long recovery (if he's able to fully recover), but wants to continue supportive measures to help his encephalopathy -continue management of hypercalcemia as below - renal function continues to stabilize so uremia less likely to be playing an ongoing role -PEG tube for feeding, seen by speech 05/30 still recommend NPO - decreased Zoloft to 50 mg at 's request - May be developing new baseline, or may be very slow to recover from this prolonged delirium/hospitalization - cont nightly Seroquel (started 05/28) Assessment & Plan (06/01/2022 2:17 PM LOGISTICS PROGRAM MANAGER): - 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 Pt had prolonged course with PNA/aspiration, UTI, renal failure, pneumothorax, hypotension, ischemic bowel s/p ex lap. His rEEG showed mod gen slowing without seizure activity. CT head most recently with apparent new area of hypodensity in anterior right frontal lobe which may be artifactual vs infarction, which Neuro thinks better from prior. - Neurology recommended brain MRI. Shouldn't get IV contrast due to current creat clearance, and he would likely need it under anesthesia . Ultimately his said she'd like to defer MRI for now - Ayaka understands overall that this is going to be a long recovery (if he's able to fully recover), but wants to continue supportive measures to help his encephalopathy -continue management of hypercalcemia as below > improving - renal function continues to slowly improve so uremia less likely to be playing an ongoing role -PEG tube for feeding, seen by speech 05/30 still recommend NPO - decreased Zoloft to 50 mg at 's request - May be developing new baseline, or may be very slow to recover from this prolonged delirium/hospitalization - cont nightly Seroquel (started 05/28) Assessment & Plan (05/31/2022 2:55 PM LOGISTICS PROGRAM MANAGER): - 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 Pt had prolonged course with PNA/aspiration, UTI, renal failure, pneumothorax, hypotension, ischemic bowel s/p ex lap. His rEEG showed mod gen slowing without seizure activity. CT head most recently with apparent new area of hypodensity in anterior right frontal lobe which may be artifactual vs infarction, which Neuro thinks better from prior. - Neurology recommended brain MRI. Shouldn't get IV contrast due to current creat clearance, and he would likely need it under anesthesia . Ultimately his said she'd like to defer MRI for now - I updated his Ayaka 05/30 and 05/31 via phone > She understands overall that this is going to be a long recovery (if he's able to fully recover), but wants to continue supportive measures to help his encephalopathy -continue management of hypercalcemia as below - renal function stable but mild uremia could be playing a role -PEG tube for feeding, seen by speech 05/30 still recommend NPO - decreased Zoloft to 50 mg at 's request -May be developing new baseline, or may be very slow to recover from this prolonged delirium/hospitalization - cont nightly Seroquel (started 05/28) Assessment & Plan (05/30/2022 1:58 PM LOGISTICS PROGRAM MANAGER): - 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 Pt had prolonged course with PNA/aspiration, UTI, renal failure, pneumothorax, hypotension, ischemic bowel s/p ex lap. His rEEG showed mod gen slowing without seizure activity. CT head most recently with apparent new area of hypodensity in anterior right frontal lobe which may be artifactual vs infarction, which Neuro thinks better from prior. - , Neurology recommended brain MRI. Probably can't get IV contrast due to current creat clearance, and concerned that he might need it under anesthesia though he was calmer and more cooperative on 05/29. Ultimately his said she'd like to defer MRI for now, can continue to discuss. - I updated his Ayaka via phone 05/30 and she reiterated her wishes - does not want MRI under anesthesia and may reconsider MRI if he gets to a point where he may tolerate it (I think at this point he would not sit still for it). 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 Pt had prolonged course with PNA/aspiration, UTI, renal failure, pneumothorax, hypotension, ischemic bowel s/p ex lap. His rEEG showed mod gen slowing without seizure activity. CT head most recently with apparent new area of hypodensity in anterior right frontal lobe which may be artifactual vs infarction, which Neuro thinks better from prior. -As above, Neurology recommended brain MRI. Probably can't get IV contrast due to current creat clearance, and concerned that he might need it under anesthesia though he was calmer and more cooperative on 05/29. Ultimately his said she'd like to defer MRI for now, can continue to discuss. -Recent ammonia, tsh, lactate, HIV, ABG are negative or normal -continue management of hypernatremia (now resolved) and hypercalcemia - renal function stable but mild uremia could be playing a role -PEG tube for feeding -appreciate neurology recommendations, discussed with Dr. 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 Pt had prolonged course with PNA/aspiration, UTI, renal failure, pneumothorax, hypotension, ischemic bowel s/p ex lap. His rEEG showed mod gen slowing without seizure activity. CT head most recently with apparent new area of hypodensity in anterior right frontal lobe which may be artifactual vs infarction, which Neuro thinks better from prior. -Currently unable to obtain recommend bMRI w con due to resolving GIN and inability to cooperate; will obtain when able, or ultimately might have to do with anesthesia. His is very hesitant for him to undergo anesthesia, and brain MRI seems unlikely to roll changer. -Recent ammonia, tsh, lactate, HIV, ABG are negative or normal -continue management of hypernatremia (now resolved) and hypercalcemia -PEG tube for feeding -appreciate neurology recommendations, discussed with Dr. 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 Pt had prolonged course with PNA/aspiration, UTI, renal failure, pneumothorax, hypotension, ischemic bowel s/p ex lap. His rEEG showed mod gen slowing without seizure activity. CT head most recently with apparent new area of hypodensity in anterior right frontal lobe which may be artifactual vs infarction, which Neuro thinks better from prior. -Currently unable to obtain recommend bMRI w con due to resolving GIN and inability to cooperate; will obtain when able, or ultimately might have to do with anesthesia. His is very hesitant for him to undergo anesthesia, and brain MRI seems unlikely to roll changer. 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 Pt had prolonged course with PNA/aspiration, UTI, renal failure, pneumothorax, hypotension, ischemic bowel s/p ex lap. His rEEG showed mod gen slowing without seizure activity. CT head most recently with apparent new area of hypodensity in anterior right frontal lobe which may be artifactual vs infarction, which Neuro thinks better from prior. -Currently unable to obtain recommend bMRI w con due to resolving GIN and inability to cooperate; will obtain when able, or ultimately might have to do with anesthesia -Recent ammonia, tsh, lactate, HIV, ABG are negative -continue management of hypernatremia (now resolved) and hypercalcemia -PEG tube for feeding -appreciate neurology recommendations -May be developing new baseline, or may be very slow to recover from this prolonged delirium/hospitalization Pneumothorax 03/21/2022 05/25/2022 Cervical myelopathy 03/17/2022 05/25/19 23 Acute hypoxemic respiratory failure 09/19/2021 06/17/2022 Overview (04/03/2022): Added automatically from request for surgery [id number] Assessment & Plan (06/17/2022 5:35 PM LOGISTICS PROGRAM MANAGER): In setting of shock, PNA, pneumothorax, and AMS in post-op setting. Tracheostomy placed in ICU and decannulated 05/13, did well on 2L, weaned to RA. Remains stable. Small anterior cervical os with tiny air leak, occlusion dressing placed. Pt unable to stent when speaking due to encephalopathy. Assessment & Plan (06/16/2022 11:56 AM LOGISTICS PROGRAM MANAGER): In setting of shock, PNA, pneumothorax, and AMS in post-op setting. Tracheostomy placed in ICU and decannulated 05/13, did well on 2L, weaned to RA. Remains stable. Small anterior cervical os with tiny air leak, occlusion dressing placed. Pt unable to stent when speaking due to encephalopathy. Assessment & Plan (06/15/2022 1:20 PM LOGISTICS PROGRAM MANAGER): In setting of shock, PNA, pneumothorax, and AMS in post-op setting. Tracheostomy placed in ICU and decannulated 05/13, did well on 2L, weaned to RA. Remains stable. Small anterior cervical os with tiny air leak, occlusion dressing placed. Pt unable to stent when speaking due to encephalopathy. Assessment & Plan (06/14/2022 2:20 PM LOGISTICS PROGRAM MANAGER): In setting of shock, PNA, pneumothorax, and AMS in post-op setting. Tracheostomy placed in ICU and decannulated 05/13, did well on 2L, weaned to RA. Remains stable. Small anterior cervical os with tiny air leak, occlusion dressing placed. Pt unable to stent when speaking due to encephalopathy. Assessment & Plan (06/13/2022 3:58 PM LOGISTICS PROGRAM MANAGER): In setting of shock, PNA, pneumothorax, and AMS in post-op setting. Tracheostomy placed in ICU and decannulated 05/13, did well on 2L, weaned to RA. Remains stable. Small anterior cervical os with tiny air leak, occlusion dressing placed. Pt unable to stent when speaking due to encephalopathy. Assessment & Plan (06/12/2022 6:20 PM LOGISTICS PROGRAM MANAGER): In setting of shock, PNA, pneumothorax, and AMS in post-op setting. Tracheostomy placed in ICU and decannulated 05/13, now doing well on 2L, weaned to RA. Remains stable. Small anterior cervical os with tiny air leak, occlusion dressing placed. Pt unable to stent when speaking due to encephalopathy. Assessment & Plan (06/10/2022 3:30 PM LOGISTICS PROGRAM MANAGER): In setting of shock, PNA, pneumothorax, and AMS in post-op setting. Tracheostomy placed in ICU and decannulated 05/13, now doing well on 2L, weaned to RA. Remains stable. Small anterior cervical os with tiny air leak, occlusion dressing placed. Pt unable to stent when speaking due to encephalopathy. Assessment & Plan (06/10/2022 9:27 AM LOGISTICS PROGRAM MANAGER): In setting of shock, PNA, pneumothorax, and AMS in post-op setting. Tracheostomy placed in ICU and decannulated 05/13, now doing well on 2L, wean to RA Assessment & Plan (06/08/2022 4:11 PM LOGISTICS PROGRAM MANAGER): In setting of shock, PNA, pneumothorax, and AMS in post-op setting. Tracheostomy placed in ICU and decannulated 05/13, now doing well on 2L, wean to RA Assessment & Plan (05/30/2022 2:04 PM LOGISTICS PROGRAM MANAGER): - In setting of shock, PNA, pneumothorax, and AMS in post-op setting. Tracheostomy placed in ICU and decannulated 05/13, now doing well on RA Assessment & Plan (05/29/2022 3:13 PM LOGISTICS PROGRAM MANAGER): - In setting of shock, PNA, pneumothorax, and AMS in post-op setting. Tracheostomy placed in ICU and decannulated 05/13, now doing well on RA Assessment & Plan (05/28/2022 1:53 PM LOGISTICS PROGRAM MANAGER): - In setting of shock, PNA, pneumothorax, and AMS in post-op setting. Tracheostomy placed in ICU and decannulated 05/13, now doing well on RA Assessment & Plan (05/27/2022 3:53 PM LOGISTICS PROGRAM MANAGER): - In setting of shock, PNA, pneumothorax, and AMS in post-op setting. Tracheostomy placed in ICU and decannulated 05/13, now doing well on RA Assessment & Plan (05/25/2022 3:17 PM LOGISTICS PROGRAM MANAGER): - In setting of shock, PNA, pneumothorax, and AMS in post-op setting. Tracheostomy placed in ICU and decannulated 05/13, now doing well on RA Assessment & Plan (04/05/2022 12:16 PM LOGISTICS PROGRAM MANAGER): Ravinder Chapman is a 76 y.o. male with a PMHx of cervical myelopathy, COPD/AMAYA (CPAP at home), and obesity initially admitted to the [facility] floor s/p C3-7 ACDF and C3-7 PSF then transferred to the NNICU on 03/20 with ARDS secondary to aspiration PNA. 1. ARDS 2. Aspiration pneumonitis 3. COPD 4. Severe AMAYA (2013 PSG) 5. HSV + (BAL) Overt aspiration event 03/20 (intubated) with subsequent worsening oxygenation and decreased P/F. Paralyzed 03/29-03/31. CXR with RUL predominant infiltrates (though appearing more homogenous on R lung subsequent CXR). Overall picture suggests aspiration pneumonitis complicated by ARDS. Some component of fluid overload in setting of acute renal failure is contributing to hypoxemia. Oxygenation is significantly improving, now off paralytic, pressures on ventilator are at goal. Bronch with BAL 03/30 -- studies negative thus far except for +HSV in BAL. Underwent surgical tracheostomy (ENT, [facility]s 6-0) on 04/04. He has been on PSV since 04/04 evening. Overall, pulmonary mechanics are markedly improved and appears to be on the right trajectory Recommendations: - vent weaning per ICU team/protocols - continue fluid removal as tolerated by hemodynamics with CRRT - consider treatment of the +HSV in BAL, typically with acyclovir x 14 days. Unclear to what extent this may be contributing to respiratory failure, but not felt to be an oral contaminant Spinal stenosis of lumbar re gion with neurogenic claudication 08/02/2021 05/25/2022 CAP (community acquired pneumonia) 10/27/2020 10/30/2022 Dry skin dermatitis 07/19/2020 03/18/20 23 Assessment & Plan (07/19/2020 1:12 PM CDT): Will check TSH, CMP. Gave triamcinolone cream to use and encouraged to continue good lotion usage. Generalized weakness 07/19/2020 023 Assessment & Plan (07/24/2022 2:22 PM CDT): Physical and occupational therapy for strengthening. Maintain respiratory droplet precautions per pandemic. Vital signs every shift including oxygen saturation. Assessment & Plan (04/05/2021 5:48 PM LOGISTICS PROGRAM MANAGER): Patient reports no significant vertigo, but loses balance when walking on treadmill; walks with cane speak disease sensation of falling however does not fall to 1 side Occasional episodes of word searching will refer to neurology for further evaluation, concerns for Parkinson's disease or other movement disorders Assessment & Plan (07/19/2020 1:12 PM CDT): Encouraged exericse/ walking. Will check labs as ordered. Change antidepressants. F/u 1 month Hyponatremia 05/19/2020 07/19/2020 Hypokalemia 05/08/2020 07/19/2020 Positive D dimer 05/06/2020 07/19/2020 Assessment & Plan (05/06/2020 12:58 PM LOGISTICS PROGRAM MANAGER): D- dimer is 815. Slightly elevated as age adjusted normal value for this patient is 730. Possibly secondary to current inflammatory process given acute colitis. Do not suspect PE or DVT. Colitis 05/05/2020 07/19/2020 Assessment & Plan (05/06/2020 12:54 PM LOGISTICS PROGRAM MANAGER): Presented with abdominalo pain X 2 days. CRP elevated to 32. CT abdomen pelvis with contrast reported minimal focal fat stranding along the lateral margin of the cecum that could be due to minimal edema or inflammation. Patient was started on antibiotics for suspected acute colitis, and admitted with a GI consultation. Will continue Ceftriaxone and Flagyl. on clear liquid diet at this time. Advance as toelrated. Continued iv fludis. Monitor for fevers or leukocytosis. Continue pain meds prn. Nipple pain 03/04/2019 09/22/2019 Assessment & Plan (03/04/2019 2:55 PM LOGISTICS PROGRAM MANAGER): Family hx of breast ca. Will order mammogram and us if needed Preoperative clearance 01/06/201903/27 Assessment & Plan (01/06/2019 8:46 AM CDT): Low risk for cataract surgery. Doing well. Chronic conditions controlled. Class 2 drug-induced obesity with serious comorbidity and body mass index (BMI) of 36.0 to 36.9 in adult 12/23/2018 08/16/2022 Assessment & Plan (12/20/2021 2:05 PM CDT): Not well controlled, worsening; patient has had increasing weight; patient generally has a light diet, but is limited activity due to low back pain Continue to encourage regular exercise, including water aerobics in order to reduce weight-bearing; Assessment & Plan (04/29/2021 11:06 AM LOGISTICS PROGRAM MANAGER): Stable, patient has been working on weight loss, working with for dietary changes; working decreasing portion sizes Assessment & Plan (09/22/2019 4:37 PM CDT): BMI Follow-up includes: exercise counseling. History of depression 12/23/20182019 Other chest pain 10/15/2018 09/22/2019 Assessment & Plan (10/17/2018 8:09 AM CDT): No further incidents. F/u from hospital. Referral to cardiology for outpatient stress testing Acute midline thoracic back pain 08/16/2018 03/27/2019 New daily persistent headache (ndph) 01/14/2018 07/19/2020 Assessment & Plan (01/14/2018 2:34 PM CDT): - persistent pain in left occipital area of head. Persistent over last week. Differentials include migraine, bleed, cva Will order labs and CT hold and call, of head. OME (otitis media with effusion), right 04/10/2017 01/14/2018 Assessment & Plan (04/10/2017 9:35 AM LOGISTICS PROGRAM MANAGER): Will treat with omnicef. Overall he's improved. Lung sounds have improved. Explained it may take him up to a month or more to feel a lot better. Benign paroxysmal positional vertigo due to bilateral vestibular disorder 10/03/2016 10/02/2018 Assessment & Plan (10/03/2016 8:11 AM CDT): Will try meclizine, PT and obtain EKG today. Labs just drawn and were normal. Altered mental status 2022 Acute renal failure (ARF) Assessment & Plan (07/15/2022 10:46 AM CDT): Severe GIN/ATN requiring APPLICATION OPERATIONS ENGINEER in setting of critical illness. Making reasonable amount of urine, creatinine stabilized off dialysis. Tunneled line removed 05/25. Cr appears to have improved to 1.2-1.3. GIN resolved. 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 -Continue to avoid nephrotoxins - encourage PO intake Assessment & Plan (06/26/2022 5:10 PM CDT): Severe GIN/ATN requiring APPLICATION OPERATIONS ENGINEER in setting of critical illness. Making reasonable amount of urine, creatinine stabilized off dialysis. Tunneled line removed 05/25. Cr appears to be plateaued <2. GIN resolved. 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 -Continue to avoid nephrotoxins -Cont intermittent IVF as needed for hypernatremia, as TF FW flushes doesn't seem to help as much, but further advanced. Animal Biologist reconsulted to address volume of flushes, water needs. -Volume status on exam appears good. Tx hypercalcemia as elsewhere, iCr 1.90 with holding of TF for recurrent vomiting. Assessment & Plan (06/25/2022 10:19 AM CDT): Severe GIN/ATN requiring APPLICATION OPERATIONS ENGINEER in setting of critical illness. Making reasonable amount of urine, creatinine stabilized off dialysis. Tunneled line removed 05/25. Cr appears to be plateaued <2. GIN resolved. 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 -Continue to avoid nephrotoxins -Cont intermittent IVF as needed for hypernatremia, as TF FW flushes doesn't seem to help as much, but further advanced. Animal Biologist reconsulted to address volume of flushes, water needs. -Volume status on exam appears good. Tx hypercalcemia as elsewhere, improvign trend. Assessment & Plan (06/24/2022 5:03 PM LOGISTICS PROGRAM MANAGER): Severe GIN/ATN requiring APPLICATION OPERATIONS ENGINEER in setting of critical illness. Making reasonable amount of urine, creatinine stabilized off dialysis. Tunneled line removed 05/25. Cr appears to be plateaued <2. GIN resolved. 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 -Continue to avoid nephrotoxins -Cont intermittent IVF as needed for hypernatremia, as TF FW flushes doesn't seem to help as much. Animal Biologist reconsulted to address volume of flushes, water needs. -Volume status on exam appears good. Tx hypercalcemia as elsewhere. Assessment & Plan (06/23/2022 3:48 PM LOGISTICS PROGRAM MANAGER): Severe GIN/ATN requiring APPLICATION OPERATIONS ENGINEER in setting of critical illness. Making reasonable amount of urine, creatinine stabilized off dialysis. Tunneled line removed 05/25. Cr appears to be plateaued <2. GIN resolved. 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 -Continue to avoid nephrotoxins -Cont intermittent IVF as needed for hypernatremia, as TF FW flushes doesn't seem to help as much. -Volume status on exam appears good. Tx hypercalcemia as elsewhere. Assessment & Plan (06/22/2022 4:08 PM LOGISTICS PROGRAM MANAGER): Severe GIN/ATN requiring APPLICATION OPERATIONS ENGINEER in setting of critical illness. Making reasonable amount of urine, creatinine stabilized off dialysis. Tunneled line removed 2. Cr appears to be plateaued <2. GIN resolved. 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 -Continue to avoid nephrotoxins -Cont intermittent IVF as needed for hypernatremia, as TF FW flushes doesn't seem to help as much. Tx hypercalcemia as elsewhere. Assessment & Plan (06/21/2022 3:23 PM LOGISTICS PROGRAM MANAGER): Severe GIN/ATN requiring APPLICATION OPERATIONS ENGINEER in setting of critical illness. Making reasonable amount of urine, creatinine stabilizing off dialysis. Tunneled line removed 2. Cr appears to be plateaued <2. GIN resolved. 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 -Continue to avoid nephrotoxins -Cont intermittent D5w IV as needed for hypernatremia, as TF FW flushes doesn't seem to help as much. Assessment & Plan (06/20/2022 6:09 PM LOGISTICS PROGRAM MANAGER): Severe GIN/ATN requiring APPLICATION OPERATIONS ENGINEER in setting of critical illness. Making reasonable amount of urine, creatinine stabilizing off dialysis. Tunneled line removed 2. Cr appears to be plateaued <2. GIN resolved. 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 -Continue to avoid nephrotoxins -Cont NS IV as needed for hypernatremia, -TF FW flushes doesn't seem to help as much. Assessment & Plan (06/16/2022 11:56 AM LOGISTICS PROGRAM MANAGER): Severe GIN/ATN requiring APPLICATION OPERATIONS ENGINEER in setting of critical illness. Making reasonable amount of urine, creatinine stabilizing off dialysis. Tunneled line removed 2. Cr appears to be plateaued <2. GIN resolved. -Continue to avoid nephrotoxins Assessment & Plan (06/15/2022 1:19 PM LOGISTICS PROGRAM MANAGER): Severe GIN/ATN requiring APPLICATION OPERATIONS ENGINEER in setting of critical illness. Making reasonable amount of urine, creatinine stabilizing off dialysis. Tunneled line removed 2. Cr appears to be plateaued <2. GIN resolved. -Continue to avoid nephrotoxins Assessment & Plan (06/14/2022 2:19 PM LOGISTICS PROGRAM MANAGER): Severe GIN/ATN requiring APPLICATION OPERATIONS ENGINEER in setting of critical illness. Making reasonable amount of urine, creatinine stabilizing off dialysis. Tunneled line removed 2/9. Cr appears to be plateaued <2. GIN resolved. -Continue to avoid nephrotoxins Assessment & Plan (06/13/2022 3:57 PM LOGISTICS PROGRAM MANAGER): Severe GIN/ATN requiring APPLICATION OPERATIONS ENGINEER in setting of critical illness. Making reasonable amount of urine, creatinine stabilizing off dialysis. Tunneled line removed 2/9. Cr appears to be plateaued <2. GIN resolved. -Continue to avoid nephrotoxins Assessment & Plan (06/12/2022 6:17 PM LOGISTICS PROGRAM MANAGER): Severe GIN/ATN requiring APPLICATION OPERATIONS ENGINEER in setting of critical illness. Making reasonable amount of urine, creatinine stabilizing off dialysis - tunneled line removed 2/9 - cont to avoid nephrotoxins - Cr appears to be plateaued <2 , f/u 1.8-1.9. No pitting edema peripherally. On RA. GIN resolved. Billing statement I have personally reviewed prior renal function labs and current Cr 1.84. I conclude GIN has resolved, now below baseline, and plan to monitor electrolytes, off telemetry and volume status on serial exams. Plan OP f/u with PCP Assessment & Plan (06/11/2022 4:33 PM LOGISTICS PROGRAM MANAGER): Severe GIN/ATN requiring APPLICATION OPERATIONS ENGINEER in setting of critical illness. Making reasonable amount of urine, creatinine stabilizing off dialysis - tunneled line removed 2/9 - cont to avoid nephrotoxins - Cr appears to be plateaued <2 , f/u 1.84 Billing statement I have personally reviewed prior renal function labs and current Cr 1.84. I conclude GIN has resolved, now below baseline, and plan to monitor electrolytes, off telemetry and volume status on serial exams. Plan OP f/u with PCP Assessment & Plan (06/10/2022 3:23 PM LOGISTICS PROGRAM MANAGER): Severe GIN/ATN requiring APPLICATION OPERATIONS ENGINEER in setting of critical illness. Making reasonable amount of urine, creatinine stabilizing off dialysis - tunneled line removed 2/9 - cont to avoid nephrotoxins - Cr appears to be plateaued <2 , f/u 1.83 Billing statement I have personally reviewed prior renal function labs and current Cr 1.83. I conclude GIN has resolved, now below baseline, and plan to monitor electrolytes, off telemetry and volume status on serial exams. Assessment & Plan (06/10/2022 9:23 AM LOGISTICS PROGRAM MANAGER): Severe GIN/ATN requiring APPLICATION OPERATIONS ENGINEER in setting of critical illness. Making reasonable amount of urine, creatinine stabilizing off dialysis - tunneled line removed 2/9 - cont to avoid nephrotoxins - Cr appears to be leveling off around 2 thus far, f/u 1.91 Billing statement I have reviewed prior renal function labs and current Cr 1.83. I conclude GIN has resolved, now below baseline, and plan to monitor electrolytes, off telemetry and volume status on serial exams. Assessment & Plan (06/08/2022 4:02 PM LOGISTICS PROGRAM MANAGER): Severe GIN/ATN requiring APPLICATION OPERATIONS ENGINEER in setting of critical illness. Making reasonable amount of urine, creatinine stabilizing off dialysis - tunneled line removed 2/9 - cont to avoid nephrotoxins - Cr appears to be leveling off around 2 thus far, f/u 1.91 Billing statement I have reviewed prior renal function labs and current Cr 1.91. I conclude GIN has resolved, now below baseline, and plan to monitor electrolytes, off telemetry and volume status on serial exams. Assessment & Plan (06/07/2022 11:00 AM LOGISTICS PROGRAM MANAGER): Severe GIN/ATN requiring APPLICATION OPERATIONS ENGINEER in setting of critical illness. Making reasonable amount of urine, creatinine stabilizing off dialysis - tunneled line removed 2/9 - cont to avoid nephrotoxins - Cr appears to be leveling off around 2 thus far Billing statement I have reviewed prior renal function labs and current Cr 1.92. I conclude GIN is improving, now below baseline, and plan to continue monitoring of electrolytes, off telemetry and monitoring volume status on serial exams. Assessment & Plan (06/06/2022 6:29 PM LOGISTICS PROGRAM MANAGER): - Severe GIN/ATN requiring APPLICATION OPERATIONS ENGINEER in setting of critical illness. Making reasonable amount of urine, creatinine stabilizing off dialysis - tunneled line removed 2/9 - cont to avoid nephrotoxins - Cr appears to be leveling off around 2 thus far Billing statement I have reviewed prior renal function labs and current Cr 1.95. I conclude GIN is improving and plan to continue monitoring of electrolytes, DC telemetry and monitor volume status on serial exams. Assessment & Plan (06/05/2022 2:00 PM LOGISTICS PROGRAM MANAGER): - Severe GIN/ATN requiring APPLICATION OPERATIONS ENGINEER in setting of critical illness. Making reasonable amount of urine, creatinine stabilizing off dialysis - tunneled line removed 2/9 - cont to avoid nephrotoxins - Cr appears to be leveling off around 2 thus far Assessment & Plan (06/04/2022 11:03 AM LOGISTICS PROGRAM MANAGER): - Severe GIN/ATN requiring APPLICATION OPERATIONS ENGINEER in setting of critical illness. Making reasonable amount of urine, creatinine stabilizing off dialysis - tunneled line removed 2/9 - cont to avoid nephrotoxins Assessment & Plan (06/03/2022 2:56 PM LOGISTICS PROGRAM MANAGER): - Severe GIN/ATN requiring APPLICATION OPERATIONS ENGINEER in setting of critical illness. Making reasonable amount of urine, creatinine stabilizing off dialysis - tunneled line removed 2/9 - cont to avoid nephrotoxins Assessment & Plan (06/02/2022 2:25 PM LOGISTICS PROGRAM MANAGER): - Severe GIN/ATN requiring APPLICATION OPERATIONS ENGINEER in setting of critical illness. Making reasonable amount of urine, creatinine stabilizing off dialysis - tunneled line removed 2/9 - cont to avoid nephrotoxins Assessment & Plan (06/01/2022 2:18 PM LOGISTICS PROGRAM MANAGER): - Severe GIN/ATN requiring APPLICATION OPERATIONS ENGINEER in setting of critical illness. Making reasonable amount of urine, creatinine stabilizing off dialysis - tunneled line removed 2/9 - cont to avoid nephrotoxins Assessment & Plan (05/31/2022 2:57 PM LOGISTICS PROGRAM MANAGER): - Severe GIN/ATN requiring APPLICATION OPERATIONS ENGINEER in setting of critical illness. Making reasonable amount of urine, creatinine stabilizing off dialysis - tunneled line removed 2/9 - cont to avoid nephrotoxins Assessment & Plan (05/30/2022 2:02 PM LOGISTICS PROGRAM MANAGER): - Severe GIN/ATN requiring APPLICATION OPERATIONS ENGINEER in setting of critical illness. Making reasonable amount of urine, creatinine stabilizing off dialysis - tunneled line removed 2/9 - cont to avoid nephrotoxins Assessment & Plan (05/29/2022 3:13 PM LOGISTICS PROGRAM MANAGER): - Severe GIN/ATN requiring APPLICATION OPERATIONS ENGINEER in setting of critical illness. Making good urine, creatinine stable off dialysis - tunneled line removed 2/9 - cont to avoid nephrotoxins Assessment & Plan (05/28/2022 1:53 PM LOGISTICS PROGRAM MANAGER): - Severe GIN/ATN requiring APPLICATION OPERATIONS ENGINEER in setting of critical illness. Making good urine, creatinine stable off dialysis - tunneled line removed 2/9 - cont to avoid nephrotoxins Assessment & Plan (05/27/2022 3:52 PM LOGISTICS PROGRAM MANAGER): - Severe GIN/ATN requiring APPLICATION OPERATIONS ENGINEER in setting of critical illness. Making good urine, creatinine slowly improving off dialysis - tunneled line removed 2 - cont to avoid nephrotoxins Assessment & Plan (05/26/2022 1:17 PM LOGISTICS PROGRAM MANAGER): - Severe GIN/ATN requiring APPLICATION OPERATIONS ENGINEER in setting of critical illness. Making good urine, creatinine has stabilized off dialysis - tunneled line removed 2 - cont to avoid nephrotoxins Immunizations Immunization Administration Dates Next Due Influenza, [...] materials from doctor or pharmacy Sometimes 10/09/2022 [facility] Utilities Answer Date Recorded In the past 12 months has th e trippiece, oil, or water [employer] threatened to shut off services in your home? No 06/20/2023 Social Connection and Isolat ion Panel [NHANES] Answer Date Recorded In a typical week, how many times do you talk on the phone with family, friends, or neighbors? Three times a week 06/20/2023 How often do you get togethe r with friends or relatives? Once a week 06/20/2023 How often do you attend [facility] or evangelical services? More than 4 times per year 06/20/2023 Do you belong to any clubs o r organizations such as mormon groups, unions, fraternal or athletic groups, or [...] place to sleep or slept in a prison (including now)? No 06/20/2023 Personal Safety Answer Date Recorded Have you ever been in or are you currently in a harmful physical or emotional relationship or is someone making you feel afraid or unsafe? Denies 06/16/2023 Sex and Gender Information Value Date Recorded Sex Assigned at Not on file Legal Sex Male 1:30 PM LOGISTICS PROGRAM MANAGER Gender Identity Male 02/21/2021 12:31 PM LOGISTICS PROGRAM MANAGER Sexual Orientation Straight 12/22/2020 11 :36 AM CDT Last Filed Vital Signs Vital Sign Reading Time Taken Comments Blood Pressure 155/69 02/27/2024 11:30 AM LOGISTICS PROGRAM MANAGER Pulse 64 02/27/2024 11:30 AM LOGISTICS PROGRAM MANAGER Temperature 36.8 C (98.3 F) 02/13/2024 8:35 AM CDT Respiratory Rate 18 02/27/2024 11:30 AM LOGISTICS PROGRAM MANAGER Oxygen Saturation 95% 02/27/2024 11:30 AM LOGISTICS PROGRAM MANAGER Inhaled Oxygen Concentration - - Weight 92.4 kg (203 lb 9.6 oz) 06/17/2024 1:18 P M LOGISTICS PROGRAM MANAGER Height 172.7 cm (5' 8 ) 06/17/2024 1:18 PM LOGISTICS PROGRAM MANAGER Body Mass Index 30.96 06/17/2024 1:18 PM LOGISTICS PROGRAM MANAGER Plan of Treatment Not on file Medical Devices Implanted Type Area Customer Care Associate Device Identifier Shelf Expiration Date Model / Serial / Lot [employer] Device Vascular Closure Femoral Artery Bioabsorbable Dual Method Vascade 6-7fr Collagen [id number] - [id number] Implanted:Qty: 1 on 06/18/2023 by Maria A Seymour MD at [facility] Right: Common Femoral Artery [employer] 02/07/2025 [id number] / / [id number] [employer] Allograft Bone Putty 2.5cc 700-025 - [id number] Implanted:Qty: 1 on 03/17/2022 by Boogie Casas MD at [facility] Spine Cervical [employer] [id number] 09/13/2024 700-025 / / [id number] [employer] Screw Trelloss-C Sa 3.5x12mm [id number] - [id number] Implanted:Qty: 1 on 03/17/2022 by Boogie Casas MD at [facility] Spine Cervical [employer] [id number] 01/04/2027 [id number] / / [id number] [employer] Spacer Trelloss-C Sa [id number] 6deg [id number] - [id number] Implanted:Qty: 1 on 03/17/2022 by Boogie Casas MD at [facility] Spine Cervical [employer] [id number] 02/10/2025 [id number] / / [id number] [employer] Spacer Trelloss-C Sa [id number] 6deg [id number] - [id number] Implanted:Qty: 1 on 03/17/2022 by Boogie Casas MD at [facility] Spine Cervical [employer] [id number] 01/28/2025 [id number] / / [id number] [employer] Inqu Paste Mix Plus Shore Hand Dredge Or Barge 10cc Bone Graft Hyaluronic Acid Poly [id number] - [id number] Implanted:Qty: 1 on 03/17/2022 by Boogie Casas MD at [facility] Spine Cervical [employer] 08/31/2022 [id number] / / [id number] [employer] Virage 3.5mm 16mm Polyaxial Spine Screw Bone Nonsterile 07.73672.009 - [id number] Implanted:Qty: 7 on 03/17/2022 by Boogie Casas MD at [facility] Spine Cervical [employer] [id number] / / [employer] Virage 3.5mm 14mm Polyaxial Spine Screw Bone Nonsterile 07.43959.007 - [id number] Implanted:Qty: 2 on 03/17/2022 by Boogie Casas MD at [facility] Spine Cervical [employer] [id number]. [id number] / / [employer] Virage 4mm 20mm Self Tap Polyaxial Spine Screw Bone Titanium Gold 07.55006.056 - [id number] Implanted:Qty: 1 on 03/17/2022 by Boogie Casas MD at [facility] Spine Cervical [employer] [id number]. [id number] / / Prasanna Straight Cocr 3.5mm X 400mm - [id number] Implanted:Qty: 1 on 03/17/2022 by Boogie Casas MD at [facility] Spine Cervical [employer] 07.01170. 002 / / [employer] Virage Closure Top Lid Sterilization Nonsterile Disposable Screw 07.59062.001 - [id number] Implanted:Qty: 10 on 03/17/2022 by Boogie Casas MD at [facility] Spine Cervical [employer] 07.97775. 001 / / [employer] Nonpurge Frozen Graft 50cc Bone [id number] - [id number] Implanted:Qty: 1 on 03/17/2022 by Boogie Casas MD at [facility] Spine Cervical [employer] 06/23/2026 [id number] / / [id number] [employer] Screw Trelloss-C Sa 3.5x14mm [id number] - [id number] Implanted:Qty: 1 on 03/17/2022 by Boogie Casas MD at [facility] Spine Cervical [employer] [id number] 03/01/2025 [id number] / / [id number] Procedures Procedure Name Priority Date/Time Associated Diagnosis [...] D 25 HYDROXY Routine 06/18/2024 10:33 AM LOGISTICS PROGRAM MANAGER Age-related osteoporosis without current pathological fracture Vitamin D deficiency DEXA TBS AXIAL SKELETON BONE DENSITY 1 OR MORE SITES Schedule Routine, Read Routine (OP Routine) 06/17/2024 12:57 PM LOGISTICS PROGRAM MANAGER Age-related osteoporosis without current pathological fracture US ABDOMINAL AORTIC ANEURYSM SCREENING Schedule Routine, Read Routine (OP Routine) 02/12/2024 9:07 AM CDT Screening for abdominal aortic aneurysm COLONOSCOPY 03/28/2021 7:23 AM LOGISTICS PROGRAM MANAGER HEPATITIS C ANTIBODY Routine 01/19/2020 2:11 PM CDT Encounter for hepatitis C screening test for low risk patient from Last 3 Months or Most Recently Relevant to Health Maintenance Results * (ABNORMAL) eGFR (07/09/2024 10:04 AM [...] of Race in Diagnosing Kidney Disease, JASN 2020). The CKD-EPI equation should not be used for patients with unstable renal function and has not been validated in children and those over 70. Current interpretive data was last reviewed 2021. Testing performed by: [address] [place]., [address] Blood 07/09/2024 10:0 4 AM CDT 07/09/2024 1:21 PM CDT us Sanford Mcduffie MD LAB BLOOD ORDERABLES Final R esult NWJKPS OVD ([place]) 8 [facility] Department [place] [address] * Protein / creatinine ratio, urine, random (07/09/2024 10:04 AM CDT) Protein, ur, quant 16.4 mg/dL Comment: Interpretive Data No reference range established. Current interpretive data was last revised 2018. Testing performed by: [address], [place]., [address] Creatinine Ur 182.8 mg/dL SHONA FRY (PAM) Comment: Interpretive Data No reference range established. Current interpretive data was last revised 2018. Testing performed by: [address] [address] Protein/creatinin e ratio 89.7 0.0 - 180.0 mg/g CR SHONA FRY (PAM) Comment:Testing performed by : [address], [address] Urine 07/09/2024 10:0 4 AM CDT 07/09/2024 10:05 AM CDT Sanford Mcduffie MD LAB URINE ORDERABLES Final R esult Performing Organization Address [facility] Co de Phone Number SHONA FRY (PAM) 1 [facility] [place] [address] * Vitamin D 25 hydroxy (07/09/2024 10:04 AM CDT) Pathologist [facility] [place] Vitamin D 25-OH 72 30 - 80 ng/mL Comment:Testing performed by : [facility], [address] [place] [address], [address] Blood 07/09/2024 10:0 4 AM CDT 07/09/2024 10:04 AM CDT Sanford Mcduffie MD LAB BLOOD ORDERABLES Final R esult Performing Organization Address [facility]/ZIP Co de Phone Number SHONA FRY (PAM) 1 [facility] [place] [address] * (ABNORMAL) CBC without differential (07/09/2024 10:04 AM CDT) Pathologist [facility] [place] WBC 7.6 3.8 - 9.9 K/cumm Comment:Testing performed by : [address], [address] Hgb 12.3(L) 13.0 - 17.5 g/dL SHONA FRY (PAM) Comment:Testing performed by : [address], [address] Hct 40.4 38.9 - 50.3 % [facility] (PAM) Comment:Testing performed by : [address], [address] Plt 173 150 - 400 K/cumm [facility] (PAM) Comment:Testing performed by : [address], [address] MPV 11.8 9.1 - 12.3 fL [facility] (PAM) Comment:Testing performed by : [address], [address] RBC 4.62 4.30 - 5.80 M/cumm [facility] (PAM) Comment:Testing performed by : [address], [address] MCV 87.4 81.3 - 96.4 fL [facility] (PAM) Comment:Testing performed by : [address], [address] MCH 26.6(L) 27.1 - 33.3 pg [facility] (PAM) Comment:Testing performed by : [address], [address] MCHC 30.4(L) 32.3 - 35.7 g/dL [facility] (PAM) Comment:Testing performed by : [address], [address] RDW CV 15.7(H) 11.1 - 14.9 % [facility] (PAM) Comment:Testing performed by : [address], [address] RDW SD 49.9(H) 35.7 - 48.1 fL [facility] (PAM) Comment:Testing performed by : [address], [address] NRBC abs 0.00 0.00 - 0.01 K/cumm [facility] (PAM) Comment:Testing performed by : [address], [address] Blood 07/09/2024 10:0 4 AM CDT 07/09/2024 10:04 AM CDT Sanford Mcduffie MD LAB BLOOD ORDERABLES Final R esult Performing Organization Address [facility] Co de Phone Number SHONA ANG ([place]) 1 [facility] [place] [address] * Uric acid (07/09/2024 10:04 AM CDT) Uric acid 5.0 3.0 - 8.0 mg/dL Comment:Testing performed by : [facility], [address] [place] [address], [address] Blood 07/09/2024 10:0 4 AM CDT 07/09/2024 10:05 AM CDT Sanford Mcduffie MD LAB BLOOD ORDERABLES Final R esult Performing Organization Address [facility] Co de Phone Number SHONA FRY ([place]) 1 [facility] [place] [address] * PTH (07/09/2024 10:04 AM CDT) PTH 65 15 - 65 pg/mL Comment:Testing performed by : [facility], [address] [place] [address], [address] Blood 07/09/2024 10:0 4 AM CDT 07/09/2024 10:05 AM CDT Sanford Mcduffie MD LAB BLOOD ORDERABLES Final R esult Performing Organization Address [facility] Co de Phone Number SHONA FRY ([place]) 1 [place] [address] * (ABNORMAL) Renal function panel (07/09/2024 10:04 AM CDT) Sodium 145 135 - 145 mmol/L Comment:Testing performed by : [facility], [address] [place] [address], [facility], [address] Potassium, pl 4.2 3.3 - 4.9 mmol/L [facility] (PAM) Comment:Testing performed by : [facility], [address] [place] [address]., [address] Chloride 111(H) 97 - 110 mmol/L [facility] (PAM) Comment:Testing performed by : [facility], [address] [place] [address]., [address] CO2 26 22 - 32 mmol/L [facility] (PAM) Comment:Testing performed by : [address], [address] Anion gap 8 2 - 15 mmol/L [facility] (PAM) Comment:Testing performed by : [facility], [address] [place] [address], [address] BUN 37(H) 6 - 25 mg/dL [facility] (PAM) Comment:Testing performed by : [address], [address] Creatinine 1.76(H) 0.80 - 1.30 mg/dL [facility] (PAM) Comment:Testing performed by : [address], [address] Glucose 98 70 - 199 mg/dL CERNER [...] classification and Diagnosis of Diabetes Diabetes Care 202; 46: S19-S40. Current interpretive data was last revised 2022. Testing performed by: [facility], [address] [place] [address]., [address] Calcium 10.0 8.5 - 10.3 mg/dL [facility] (PAM) Comment:Testing performed by : [address] [address] Phosphorus, pl 3.7 2.3 - 4.5 mg/dL [facility] (PAM) Comment:Testing performed by : [address], [address] Albumin 3.9 3.5 - 5.0 g/dL SHONA FRY ([place]) Comment:Testing performed by : [facility], [address] [place] [address], [address] Blood 07/09/2024 10:0 4 AM CDT 07/09/2024 10:05 AM CDT us Sanford Mcduffie MD LAB BLOOD ORDERABLES Final R esult Performing Organization Address [facility] de Phone Number SHONA FRY ([place]) 1 [facility] [place] [address] * Vitamin D 25 hydroxy (06/18/2024 10:33 AM LOGISTICS PROGRAM MANAGER) [facility] Vitamin D 25-OH 63 30 - 80 ng/mL Comment:Testing performed by : [facility], [address] [place] [address], [address] Blood 06/18/2024 10:3 3 AM LOGISTICS PROGRAM MANAGER 06/18/2024 6:40 PM LOGISTICS PROGRAM MANAGER us Venita Granda DNP LAB BLOOD ORDERABLES Final Resu lt Performing Organization Address [facility] de Phone Number SHONA FRY ([place]) 1 [facility] [place] [address] * Dexa TBS Axial Skeleton Bone Density 1 or more sites (06/17/2024 12:57 PM LOGISTICS PROGRAM MANAGER) Anatomical Region Laterality Modality Wrist, Body N/A Radiographic Jenna ging Narrative 06/17/2024 1:15 PM LOGISTICS PROGRAM MANAGER Patient Name: Ravinder Chapman Date of : 1945 Date of scan: 06/17/2024 Bone mineral density was performed on a [email or web address] Discovery Densitometer. Based on machine cross-calibration and [...] density scan were prepared by Elin Rainey (R)(CBDT) who is accredited by the International Society of Clinical Densitometry. The overall patient assessment and scan interpretation were performed by Erin Long M.D. who is certified by the International Society of Clinical Densitometry. [id number] Venita Granda [facility] IM DXA PROCEDURES Final Result * US Abdominal [...] by: Lani Simmons M.D. Reymundo Bloom MD [facility] PROCEDURES Final Result * COLONOSCOPY (03/28/2021 7:23 AM LOGISTICS PROGRAM MANAGER) Anatomical Region Laterality Modality Other Narrative Procedure Note Roe Dior MD - 03/28/2021 7:23 AM CST [facility] Patient Name: Ravinder Chapman Procedure Date: 03/28/2021 7:23 AM Date of : 1945 Admit Type: Outpatient Age: 75 Gender: Male Attending MD: Roe Dior M.D. Room: [facility] ENDOSCOPY ROOM 2 Note Status: Finalized Patient [...] scope was passed under direct vision. TheColonoscope [id number] was introduced through the anus and advanced [...] 7:23 AM Procedure Code(s): --- Professional --- 38376, Colonoscopy, flexible; with removal of tumor(s), polyp(s), or other lesion(s) by snare technique Diagnosis Code(s): --- Professional --- K57.30, Diverticulosis of large intestine without perforation orabscess without bleeding K63.5, Polyp of colon K64.9, Unspecified hemorrhoids Z86.010, Personal history of colonic polyps CPT copyright 2019 [employer]. All rights reserved. The codes documented in this report are preliminary and upon office clerk assistant reviewmay be revised to meet current compliance requirements. Recognized by the [employer] for promoting quality in endoscopy Roe Dior MD ENDOSCOPY PROCEDURES Final Re [...] - GENERAL OR DERABLES Final Result SHONA SQUIRES [address] Department of [place] [address] from Last 3 Months or Most Recently Relevant to Health Maintenance Insurance A[employer] MEDICARE AET MEDICARE AET MEDICARE AETNA MEDICARE Advance Directives For more information, please contact: [phone] Documents on File Type Date Recorded Patient Therapy Administrative Assistant Expl anation ADVANCE DIRECTIVE 01/03/2022 2:56 PM POWER OF CONDUIT CLEANER[employer]ICAL * Full Code (Latest Code Status on File) Date Activated Date Inactivated Comments 06/16/2023 10:55 PM 06/19/2023 9:22 PM * Full Code Date Activated Date Inactivated Comments 03/17/2022 9:36 PM 07/19/2022 2:28 AM * Full Code Date Activated Date Inactivated Comments 03/28/2021 7:23 AM 03/28/2021 2:13 PM * Full Code Date Activated Date Inactivated Comments 10/27/2020 1:42 PM 11/02/2020 5:01 PM * Full Code Date Activated Date Inactivated Comments 05/19/2020 6:30 PM 05/24/2020 4:53 PM Care Teams Inspector Metal Can Relationship Specialty Start Date End Date Nick Almanzar MD [address] [place] [address] PCP - General Family Medicine 12/23/20 Luke Santiago MD Consulting Physician Pulmonary Disease 05/15/20 [place] [address] [facility] [address] [place] [address] Consulting Physician Pulmonary Disease 11/02/20 Jony Wilcox MD [address] [place] [address] [address] [place] [address] Consulting Physician Nephrology 06/19/23 Maria A Seymour MD [address] [facility] [address], [place] [address] Consulting Physician Interventional Cardiology 06/19/23 Alex Urbina MD [address] [facility] [address] [place], [place] [id number] Consulting Physician Cardiology 06/19/23 [place] [address] [address] [facility] [address] [place] [address] Nurse Practitioner Feed Handler 02/27/24
--- OUTSIDE RECORDS SUMMARY | 2024-08-02 11:08 | XMS_ITS | Encounter Summary ---
Author Organization [facility] Address [address] [place] [address] Phone Care Team Providers Care Spring Coiler Name Role Phone Luke Santiago MD Unavailable Michael Lynch MD Unavailable Nick Almanzar MD Primary Care Provider [phone] Jony Wilcox MD Unavailable [phone] Maria A Seymour MD Unavailable [phone] Alex Urbina MD Unavailable Vanessa Darling NP Unavailable [phone] Encounter Details Date Type Department Care Team (Late st Contact Info) Description 06/19/2024 Results Follow-Up [facility] [address] [facility] [address] [place] [address] Venita Granda DNP [address] [place] [address] [address] [place], [place] [id number] Social History Tobacco Use Types Packs/Day Years [...] materials from doctor or pharmacy Sometimes 10/09/2022 [facility] Utilities Answer Date Recorded In the past 12 months has e [employer], gas, oil, or water [employer] threatened to shut off services in your [...] often do you attend chur ch or buddhist services? More than 4 times per year 06/20/2023 Do you belong to any clubs o r organizations such as denominational groups, unions, fraternal or athletic groups, or [...] place to sleep or slept in a nursing home (including now)? No 06/20/2023 Personal Safety Answer Date Recorded Have you ever been in or are you currently in a harmful physical or emotional relationship or is someone making you feel afraid or unsafe? Denies 06/16/2023 Sex and Gender Information Value Date Recorded Sex Assigned at Not on file Legal Sex Male 1:30 PM PARTS SALVAGER Gender Identity Male 02/21/2021 12:31 PM PARTS SALVAGER Sexual Orientation Straight 12/22/2020 11 :36 AM CDT documented as of this encounter Plan of Treatment Not on file documented as of this encounter Visit Diagnoses Not on filedocumented in this encounter Care Teams Spring Coiler Relationship Specialty Start Date End Date Nick Almanzar MD [address] [place] [place] [address] PCP - General Family Medicine 12/23/20 Luke Santiago MD Consulting Physician Pulmonary Disease 05/15/20 [place] [address] [address] [place], [place] [id number] Consulting Physician Pulmonary Disease 11/02/20 Jony Wilcox MD [address] [place] [address] [address] [place], [place] [id number] Consulting Physician Nephrology 06/19/23 Maria A Seymour MD [address] [facility] [address] [place] [address] Consulting Physician Interventional Cardiology 06/19/23 Alex Urbina MD [address] [facility] [address] [place] [address] Consulting Physician Cardiology 06/19/23 [place] [address] [address] [place] [address] Nurse Practitioner Residential Direct Support Professional 02/27/24 documented as of this encounter
--- OUTSIDE RECORDS SUMMARY | 2024-08-02 11:08 | XMS_ITS | Clinical Summary ---
Author Organization [facility] Address [address] [place] [address] Care Team Providers Care Metal Technician Name Role Phone Luke Santiago MD Unavailable [phone] Michael Lynch MD Unavailable [phone] Nick Almanzar MD Primary Care Provider [phone] Jony Wilcox MD Unavailable [phone] Maria A Seymour MD Unavailable [phone] Alex Urbina MD Unavailable [phone] Vanessa Darling NP Unavailable Allergies Active Allergy Reactions Criticality Noted Date [...] mg SL tabletIndications: Coronary artery disease of [place] artery of [place] heart with stable angina pectoris Place 1 [...] this helped. Recurrent emesis with suspected aspiration 3/ on bolus feeds based on suctioning tube feeds from mouth. CXR neg for PNA. Added reglan 5mg q8hrs for GERD, then DCed. D/w IR and converted G to GJ tube 06/21/22 Resumed TF via J tube 06/21 and initially tolerating. Lead Welder re advanced TFlushes & spot bolus IVF [...] via J tube 06/21 and initially tolerating. Lead Welder re advanced TFlushes & spot bolus IVF [...] leukocytosis. Assessment & Plan (06/24/2022 5:08 PM RN ONCOLOGY): Per nursing over last few weeks has [...] TF via J tube 06/21 and tolerating. Lead Welder re TFlushes. Continue Strict aspiration precautions. - ANIA recently NAD, no constipation. Assessment & Plan (06/23/2022 4:00 PM RN ONCOLOGY): Per nursing over last few weeks has [...] constipation. Assessment & Plan (06/22/2022 4:16 PM RN ONCOLOGY): Per nursing over last few weeks has had intermittent vomiting. - Started bolus TF to see if this helps. Rrecurrence with suspected aspiration 3/8 on bolus feeds. CXR neg for PNA. Add reglan q8hrs for GERD D/w IR and converted G to GJ tube 06/21/22 Resumed TF via J tube 8. Add low dose reglan for reflux 3/8. Continue Strict aspiration precautions. - Cont to observe. - ANIA recently NAD. Assessment & Plan (06/21/2022 3:29 PM RN ONCOLOGY): Per nursing over last few weeks has had intermittent vomiting. - Started bolus TF to see if this helps. Rrecurrence with suspected aspiration 06/21 on bolus feeds. CXR neg for PNA. Add reglan q8hrs for GERD D/w IR and converted G to GJ tube 06/21/22 Resumed TF via J tube 06/21. Continue Strict aspiration precautions. - Cont to observe. - ANIA recently NAD. Assessment & Plan (06/20/2022 6:17 PM RN ONCOLOGY): Per nursing over last few weeks has had intermittent vomiting. - Started bolus TF to see if this helps. No recurrence on bolus feeds. Strict aspiration precautions. - Cont to observe. - ANIA recently NAD. UTI due to Klebsiella species [...] negative. Assessment & Plan (06/24/2022 5:06 PM RN ONCOLOGY): UA on 3/2 with nitrates and >50 WBC. No urine cultures with MDR. Started IV ceftriaxone. Might be adding some component to the AMS, but no change noted with treatment with IV Ceftriaxone (3/2-c). Urine Cx growing Klebsiella variicola. Sensitivities include ceftriaxone. Pt completed 7 day course 06/22/22. Checked for urinary retention, bladder scan negative. Assessment & Plan (06/23/2022 3:59 PM RN ONCOLOGY): UA on 3/2 with nitrates and >50 WBC. No urine cultures with MDR. Started IV ceftriaxone. Might be adding some component to the AMS, but no change noted with treatment with IV Ceftriaxone (3/2-c). Urine Cx growing Klebsiella variicola. Sensitivities include ceftriaxone. Pt completed 7 day course 06/22/22. Checked for urinary retention, bladder scan negative. Assessment & Plan (06/22/2022 4:16 PM RN ONCOLOGY): UA on 3 with nitrates and >50 WBC. No urine cultures with MDR. Started IV ceftriaxone. Might be adding some component to the AMS, but no change noted with treatment with IV Ceftriaxone (3/2-c). Pt completed 7 day course 06/22/22. Checked for urinary retention, bladder scan negative. -Urine Cx growing Klebsiella variicola. Sensitivities back. S to CTX Assessment & Plan (06/21/2022 3:31 PM RN ONCOLOGY): UA on 3/2 with nitrates and >50 WBC. No urine cultures with MDR. Started IV ceftriaxone. Might be adding some component to the AMS. -Ceftriaxone 3/2- completes 7 day course on 06/22/22. Check for urinary retention, bladder scan negative. -Urine Cx growing Klebsiella variicola. Sensitivities back. S to CTX Assessment & Plan (06/19/2022 10:12 PM RN ONCOLOGY): UA on 3/2 with nitrates and >50 WBC. No urine cultures with MDR. Will start him on ceftriaxone while urine culture results. Might be adding some component to the AMS. -Ceftriaxone 3/2- complete 7 day course. Check for urinary retention. -Urine Cx growing Klebsiella variicola. Sensitivities back. S to CTX Assessment & Plan (06/16/2022 12:04 PM RN ONCOLOGY): UA on 3/2 with nitrates and >50 WBC. No urine cultures with MDR. Will start him on ceftriaxone while urine culture results. Might be adding some component to the AMS. -Ceftriaxone 3/2- -Urine Cx growing Klebsiella variicola. Sensitivities pending. Assessment & Plan (06/15/2022 1:24 PM RN ONCOLOGY): UA on 3/2 with nitrates and >50 [...] unremarkable. Assessment & Plan (06/24/2022 5:03 PM RN ONCOLOGY): Normocytic. AOCD pattern on labs. Likely from GIN, serious illness, frequent blood draws, etc. -Intermittently requiring PRBC last 06/03/22. F/u Hb 7.8, limit routine labs. No evidence of hematuria, melena or hematochezia. Assessment & Plan (06/23/2022 3:48 PM RN ONCOLOGY): Normocytic. AOCD pattern on labs. Likely from GIN, serious illness, frequent blood draws, etc. -Intermittently requiring PRBC last 06/03/22. F/u Hb 7.3, limit routine labs. No evidence of hematuria, melena or hematochezia. Assessment & Plan (06/22/2022 4:08 PM RN ONCOLOGY): Normocytic. AOCD pattern on labs. Likely from GIN, serious illness, frequent blood draws, etc. -Intermittently requiring PRBC last 06/03/22. F/u Hb 7.3, limit routine labs. No evidence of hematuria, melena or hematochezia. Assessment & Plan (06/21/2022 3:23 PM RN ONCOLOGY): Normocytic. AOCD pattern on labs. Likely from GIN, serious illness, frequent blood draws, etc. -Intermittently requiring PRBC last 06/03/22. F/u Hb 7.5, limit routine labs. Assessment & Plan (06/20/2022 6:09 PM RN ONCOLOGY): Normocytic. AOCD pattern on labs. Likely from GIN, serious illness, frequent blood draws, etc. -Intermittently requiring PRBC last 06/03/21. F/u Hb 7.5, limit routine labs. Assessment & Plan (06/16/2022 11:57 AM RN ONCOLOGY): Normocytic. AOCD pattern on labs. Likely from GIN, serious illness, frequent blood draws, etc. -Intermittently requiring PRBC last 06/03/21. Assessment & Plan (06/15/2022 1:22 PM RN ONCOLOGY): Normocytic. AOCD pattern on labs. Likely from GIN, serious illness, frequent blood draws, etc. -Intermittently requiring PRBC last 06/03/21. Assessment & Plan (06/14/2022 2:26 PM RN ONCOLOGY): Normocytic. AOCD pattern on labs. Likely from GIN, serious illness, frequent blood draws, etc. -Intermittently requiring PRBC last 06/03/21. F/u Hb 8.1. Assessment & Plan (06/13/2022 4:10 PM RN ONCOLOGY): Normocytic. AOCD pattern on labs. Likely from GIN, serious illness, frequent blood draws, etc. -Intermittently requiring PRBC last 06/03/21. F/u Hb 8.1. Assessment & Plan (06/12/2022 6:17 PM RN ONCOLOGY): Normocytic. AOCD pattern on labs. Likely from GIN, serious illness, frequent blood draws, etc. - intermittently requiring PRBC last 06/03/21. F/u Hb 8.1. Billing statement. I have reviewed current Hb 8.5, remains stable post recent transfusion with HD stability. Plan to limit blood draws, monitor serial counts for additional needs. Transfuse PRN Hb<7. Assessment & Plan (06/11/2022 4:33 PM RN ONCOLOGY): Normocytic. AOCD pattern on labs. Likely from GIN, serious illness, frequent blood draws, etc. - intermittently requiring PRBC last 06/03/21. F/u Hb 8.1. Billing statement. I have reviewed current Hb 8.5, remains stable post recent transfusion with HD stability. Plan to limit blood draws, monitor serial counts for additional needs. Transfuse PRN Hb<7 Assessment & Plan (06/10/2022 3:23 PM RN ONCOLOGY): Normocytic. AOCD pattern on labs. Likely from GIN, serious illness, frequent blood draws, etc. - intermittently requiring PRBC last 06/03/21. F/u Hb 8.1. Billing statement. I have reviewed current Hb 8.1, remains stable post recent transfusion with HD stability. Plan to limit blood draws, monitor serial counts for additional needs. Transfuse PRN Hb<7 Assessment & Plan (06/10/2022 9:24 AM RN ONCOLOGY): Normocytic. AOCD pattern on labs. Likely from GIN, serious illness, frequent blood draws, etc. - intermittently requiring PRBC last 06/03/21. F/u Hb 8.1. Billing statement. I have reviewed current Hb 8.1, remains stable post recent transfusion with HD stability. Plan to limit blood draws, monitor serial counts for additional needs. Transfuse PRN Hb<7 Assessment & Plan (06/08/2022 4:02 PM RN ONCOLOGY): Normocytic. AOCD pattern on labs. Likely from GIN, serious illness, frequent blood draws, etc. - intermittently requiring PRBC last 06/03/21. F/u Hb 8.1. Billing statement. I have reviewed current Hb 8.1, remains stable post recent transfusion with HD stability. Plan to limit blood draws, monitor serial counts for additional needs. Assessment & Plan (06/07/2022 11:00 AM RN ONCOLOGY): Normocytic. AOCD pattern on labs. Likely from GIN, serious illness, frequent blood draws, etc. - intermittently requiring PRBC last 06/03/21 Billing statement. I have reviewed current Hb 8.1, remains stable post recent transfusion with HD stability. Plan to limit blood draws, monitor serial counts for additional needs. Assessment & Plan (06/06/2022 6:31 PM RN ONCOLOGY): Normocytic. 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 - intermittently requiring PRBC last 06/03 Billing statement. I have reviewed current Hb 8.1, remains stable post transfusion. Plan to limit blood draws, monitor serial counts. Assessment & Plan (06/05/2022 2:00 PM RN ONCOLOGY): - Normocytic. 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 - intermittently requiring PRBC last 06/03 Assessment & Plan (06/04/2022 11:09 AM RN ONCOLOGY): - Normocytic. 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 - f/u CBC today p 1 unit PRBC 06/03 Assessment & Plan (06/03/2022 2:57 PM RN ONCOLOGY): - Normocytic. 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 - requiring 1 unit PRBC today for slow drop likely AOCD and lab draws Assessment & Plan (06/02/2022 2:26 PM RN ONCOLOGY): - Normocytic. 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 - cont to monitor H/H, transfuse for Hb < 7, remains relatively stable but at borderline of requiring PRBC Assessment & Plan (06/01/2022 2:18 PM RN ONCOLOGY): - Normocytic. 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 - cont to monitor H/H, transfuse for Hb < 7, remains relatively stable but at borderline of requiring PRBC Assessment & Plan (05/31/2022 2:57 PM RN ONCOLOGY): - Normocytic. 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 - cont to monitor H/H, transfuse for Hb < 7 Assessment & Plan (05/30/2022 2:03 PM RN ONCOLOGY): - Normocytic. 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 - cont to monitor H/H, transfuse for Hb < 7 Assessment & Plan (05/29/2022 3:13 PM RN ONCOLOGY): Normocytic. B12, folate normal. Likely from GIN, serious illness, frequent blood draws, etc. Drop over last 24 hrs likely dilutional due to IVF. No e/o bleeding - cont to monitor H/H, transfuse for Hb < 7 - ferritin high, c/w anemia of chronic dz Assessment & Plan (05/28/2022 1:53 PM RN ONCOLOGY): Normocytic. B12, folate normal. Likely from GIN, serious illness, frequent blood draws, etc. Drop over last 24 hrs likely dilutional due to IVF. No e/o bleeding - cont to monitor H/H, transfuse for Hb < 7 - ferritin high, c/w anemia of chronic dz Assessment & Plan (05/27/2022 3:53 PM RN ONCOLOGY): Normocytic. B12, folate normal. Likely from GIN, serious illness, frequent blood draws, etc. Drop over last 24 hrs likely dilutional due to IVF. No e/o bleeding - cont to monitor H/H, transfuse for Hb < 7 - ferritin high, c/w anemia of chronic dz Assessment & Plan (05/26/2022 1:22 PM RN ONCOLOGY): Normocytic. B12, folate normal. Likely from GIN, [...] -Apparently can get denosumab but would need COMMUNICATIONS STRATEGIST approval. Appreciate nephrology help sensipar not an [...] -Apparently can get denosumab but would need COMMUNICATIONS STRATEGIST approval. Appreciate nephrology help sensipar not an [...] status. Assessment & Plan (06/24/2022 5:06 PM RN ONCOLOGY): Normocalcemic on arrival. Uncorrected Ca as high [...] -Apparently can get denosumab but would need COMMUNICATIONS STRATEGIST approval. Appreciate nephrology help sensipar not an [...] am. Assessment & Plan (06/23/2022 3:58 PM RN ONCOLOGY): Normocalcemic on arrival. Uncorrected Ca as high [...] -Apparently can get denosumab but would need COMMUNICATIONS STRATEGIST approval. Appreciate nephrology help sensipar not an [...] 06/23. Assessment & Plan (06/22/2022 4:15 PM RN ONCOLOGY): Normocalcemic on arrival. Uncorrected Ca as high [...] -Apparently can get denosumab but would need COMMUNICATIONS STRATEGIST approval. Appreciate nephrology help sensipar not an [...] iCa. Assessment & Plan (06/21/2022 3:27 PM RN ONCOLOGY): Normocalcemic on arrival. Uncorrected Ca as high [...] -Apparently can get denosumab but would need COMMUNICATIONS STRATEGIST approval. Appreciate nephrology help sensipar not an [...] response. Assessment & Plan (06/20/2022 6:15 PM RN ONCOLOGY): Normocalcemic on arrival. Uncorrected Ca as high [...] -Apparently can get denosumab but would need COMMUNICATIONS STRATEGIST approval. Appreciate nephrology help sensipar not an [...] approval. Assessment & Plan (06/16/2022 11:57 AM RN ONCOLOGY): Normocalcemic on arrival. Uncorrected Ca as high [...] today Assessment & Plan (06/15/2022 1:22 PM RN ONCOLOGY): Normocalcemic on arrival. Uncorrected Ca as high [...] low level hyperCa. Recommend continued NPO by [facility] 06/08. - Continue water flushes per tube (300 q4). - Ca++ increased today: 12.1 (11.9). - if Cr continues to downtrend may be able to consider bisphosphonate. 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 - Cosyntropin test within normal limits, AI ruled out. Assessment & Plan (06/14/2022 2:26 PM RN ONCOLOGY): Normocalcemic on arrival. Uncorrected Ca as high [...] low level hyperCa. Recommend continued NPO by [facility] 06/08. - Continue water flushes per tube (300 q4). - Ca++ increased today: 12.1 (11.9). - if Cr continues to downtrend may be able to consider bisphosphonate. 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 Recommending ordering cosyntropin to rule out adrenal insufficiency. Assessment & Plan (06/13/2022 4:03 PM RN ONCOLOGY): Normocalcemic on arrival. Uncorrected Ca as high [...] low level hyperCa. Recommend continued NPO by [facility] 06/08. - Continue water flushes per tube (300 q4). - Ca++ decreased today: 11.9 (12.8). - if Cr continues to downtrend may be able to consider bisphosphonate. - Continue to monitor Assessment & Plan (06/12/2022 6:20 PM RN ONCOLOGY): Normocalcemic on arrival. Uncorrected Ca as high [...] supplementation. Assessment & Plan (06/11/2022 4:35 PM RN ONCOLOGY): Normocalcemic on arrival. Uncorrected Ca as high [...] low level hyperCa. Recommend continued NPO by [facility] 06/08. - cont water per tube (300 [...] personally reviewed hypercalcemia trends and f/u lab 10- with stabilization of renal dysfunction. Plan NPO, on tube feeds. Plan OP consideration of sensipar 30mg PO daily and to continue hydration per tube, serial calcium monitoring, & avoid supplementation. Assessment & Plan (06/10/2022 3:28 PM RN ONCOLOGY): Normocalcemic on arrival. Uncorrected Ca as high [...] low level hyperCa. Recommend continued NPO by [facility] 06/08. - cont water per tube (300 [...] supplementation. Assessment & Plan (06/10/2022 9:27 AM RN ONCOLOGY): Normocalcemic on arrival. Uncorrected Ca as high [...] level hyperCa. Advanced tolerance of PO by [facility] 06/08. - cont water per tube (300 [...] supplementation. Assessment & Plan (06/08/2022 4:09 PM RN ONCOLOGY): Normocalcemic on arrival. Uncorrected Ca as high [...] level hyperCa. Advanced tolerance of PO by [facility] 06/08. Start sensipar and monitor response. - [...] supplementation. Assessment & Plan (06/07/2022 11:04 AM RN ONCOLOGY): Normocalcemic on arrival. Uncorrected Ca as high [...] and f/u lab - with stabilization. Plan to continue hydration per tube, serial calcium monitoring, & avoid supplementation. Assessment & Plan (06/06/2022 6:40 PM RN ONCOLOGY): Normocalcemic on arrival. Uncorrected Ca as high [...] supplementation. Assessment & Plan (06/05/2022 1:59 PM RN ONCOLOGY): - Normocalcemic on arrival. Uncorrected Ca as [...] now Assessment & Plan (06/04/2022 11:09 AM RN ONCOLOGY): - Normocalcemic on arrival. Uncorrected Ca as [...] considered Assessment & Plan (06/03/2022 2:56 PM RN ONCOLOGY): - Normocalcemic on arrival. Uncorrected Ca as [...] 11.4 Assessment & Plan (06/02/2022 2:25 PM RN ONCOLOGY): - Normocalcemic on arrival. Uncorrected Ca as [...] IVF Assessment & Plan (06/01/2022 2:18 PM RN ONCOLOGY): - Normocalcemic on arrival. Uncorrected Ca as [...] d/c Assessment & Plan (05/31/2022 2:57 PM RN ONCOLOGY): - Normocalcemic on arrival. Uncorrected Ca as [...] stable/downtrending Assessment & Plan (05/30/2022 2:01 PM RN ONCOLOGY): - Normocalcemic on arrival. Uncorrected Ca as [...] improve Assessment & Plan (05/29/2022 3:13 PM RN ONCOLOGY): - Normocalcemic on arrival. Uncorrected Ca as [...] improve Assessment & Plan (05/28/2022 1:52 PM RN ONCOLOGY): - Normocalcemic on arrival. Uncorrected Ca as [...] improve Assessment & Plan (05/27/2022 3:52 PM RN ONCOLOGY): - Normocalcemic on arrival. Uncorrected Ca as [...] today Assessment & Plan (05/26/2022 1:19 PM RN ONCOLOGY): - Normocalcemic on arrival. Uncorrected Ca as [...] IVF Assessment & Plan (05/27/2022 3:53 PM RN ONCOLOGY): - Has been hypo- and hypernatremic during course Sodium now normal, cont to monitor daily BMP Assessment & Plan (05/26/2022 1:19 PM RN ONCOLOGY): - Has been hypo- and hypernatremic during course Sodium now normal, cont to monitor daily BMP Cervical stenosis of spine 09/19/2021 Overview (09/19/2021): Added automatically from request for surgery [id number] Assessment & Plan (11/10/2022 9:33 AM CDT): [...] to arrange; Dr. Casas no longer at [facility] Assessment & Plan (06/26/2022 5:11 PM [...] commands. Assessment & Plan (06/24/2022 5:04 PM RN ONCOLOGY): Presented for elective C 3-5 ACDF and [...] commands. Assessment & Plan (06/23/2022 3:49 PM RN ONCOLOGY): Presented for elective C 3-5 ACDF and C3-7 posterior fusion on 03/17/22. Sutures out. NSurg f/u appreciated. Will need NSGY clinic OP follow up at [place]. Surgical incision healed well. No muscular spasticity noted on LE exam. Bilateral strength intact. Therapy per neurosurgery, if able to participate, currently doesn't follow commands. Assessment & Plan (06/22/2022 4:10 PM RN ONCOLOGY): Presented for elective C 3-5 ACDF and C3-7 posterior fusion on 03/17/22. Sutures out. Will need NSGY clinic OP follow up at [place]. Surgical incision healed well. No muscular spasticity noted on LE exam. Bilateral strength intact. Therapy per neurosurgery, if able to participate, currently doesn't follow commands. Assessment & Plan (06/21/2022 3:24 PM RN ONCOLOGY): Presented for elective C 3-5 ACDF and C3-7 posterior fusion on 03/17/22. Sutures out. Will need NSGY clinic OP follow up at [place]. Surgical incision healed well. No muscular spasticity noted on LE exam. Therapy per neurosurgery, if able to participate. Assessment & Plan (06/20/2022 6:10 PM RN ONCOLOGY): Presented for elective C 3-5 ACDF and C3-7 posterior fusion on 03/17/22. Sutures out. Will need NSGY clinic OP follow up at [place]. Surgical incision healed well. No muscular spasticity noted on LE exam. Therapy per neurosurgery, if able to participate. Assessment & Plan (06/16/2022 11:56 AM RN ONCOLOGY): Presented for elective C 3-5 ACDF and C3-7 posterior fusion on 03/17/22. Sutures out. Will need NSGY clinic OP follow up at [place]. Surgical incision healed well. No muscular spasticity noted on LE exam. Therapy per neurosurgery, if able to participate. Assessment & Plan (06/15/2022 1:19 PM RN ONCOLOGY): Presented for elective C 3-5 ACDF and C3-7 posterior fusion on 03/17/22. Sutures out. Will need NSGY clinic OP follow up at [place]. Surgical incision healed well. No muscular spasticity noted on LE exam. Therapy per neurosurgery, if able to participate. Assessment & Plan (06/14/2022 2:19 PM RN ONCOLOGY): Presented for elective C 3-5 ACDF and C3-7 posterior fusion on 03/17/22. Sutures out. Will need NSGY clinic OP follow up at [place]. Surgical incision healed well. No muscular spasticity noted on LE exam. Therapy per neurosurgery, if able to participate. Assessment & Plan (06/13/2022 3:58 PM RN ONCOLOGY): Presented for elective C 3-5 ACDF and C3-7 posterior fusion on 03/17/22. Sutures out. Will need NSGY clinic OP follow up at [place] Surgical incision healed well. No muscular spasticity noted on LE exam. Therapy per neurosurgery, if able to participate. Assessment & Plan (06/12/2022 6:18 PM RN ONCOLOGY): Presented for elective C 3-5 ACDF and C3-7 posterior fusion on 03/17/22. Sutures out. Will need NSGY clinic OP follow up at [place] Surgical incision healed well. No muscular spasticity noted on LE exam. Therapy per neurosurgery, if able to participate. Plan DC to SNF once bed available. Assessment & Plan (06/11/2022 4:33 PM RN ONCOLOGY): Presented for elective C 3-5 ACDF and C3-7 posterior fusion on 03/17/22. Sutures out. Will need NSGY clinic OP follow up [place] Surgical incision healed well. No muscular spasticity noted on exam. Therapy per neurosurgery. Plan DC to SNF once bed available. Assessment & Plan (06/10/2022 3:23 PM RN ONCOLOGY): Presented for elective C 3-5 ACDF and C3-7 posterior fusion on 03/17/22. Sutures out. Will need NSGY clinic OP follow up at [place]. Surgical incision healing well. No muscular spasticity noted on exam. Therapy per neurosurgery. Plan DC to SNF once bed available. Assessment & Plan (06/10/2022 9:24 AM RN ONCOLOGY): Presented for elective C 3-5 ACDF and C3-7 posterior fusion on 03/17/22. Sutures out. Will need NSGY clinic OP follow up [place] Surgical incision healing well. No muscular spasticity noted on exam. Therapy per neurosurgery. Plan DC to SNF Assessment & Plan (06/08/2022 3:56 PM RN ONCOLOGY): Presented for elective C 3-5 ACDF and C3-7 posterior fusion on 03/17/22. Sutures out. Will need NSGY clinic OP follow up at [place] Surgical incision healing well. No muscular spasticity noted on exam. Assessment & Plan (06/07/2022 10:57 AM RN ONCOLOGY): Presented for elective C 3-5 ACDF and C3-7 posterior fusion on 03/17/22. Sutures out. Will need NSGY clinic OP follow up at [place] Surgical incision healing well. No muscular spasticity noted on exam. Assessment & Plan (06/06/2022 6:33 PM RN ONCOLOGY): Presented for elective C 3-5 ACDF and C3-7 posterior fusion on 03/17. Sutures out. Will need NSGY follow up at [place]. Surgical incision healing well. No muscular spasticity noted on exam. Assessment & Plan (06/05/2022 2:02 PM RN ONCOLOGY): - Presented for elective C 3-5 ACDF and C3-7 posterior fusion on 03/17. Sutures out. Will need NSGY follow up at [place]. Assessment & Plan (05/31/2022 2:57 PM RN ONCOLOGY): - Presented for elective C 3-5 ACDF and C3-7 posterior fusion on 03/17. Sutures out. Will need NSGY follow up at [place]. Assessment & Plan (05/30/2022 2:04 PM RN ONCOLOGY): - Presented for elective C 3-5 ACDF and C3-7 posterior fusion on 03/17. Sutures out. Will need NSGY follow up at [place]. Assessment & Plan (05/29/2022 3:13 PM RN ONCOLOGY): - Presented for elective C 3-5 ACDF and C3-7 posterior fusion on 03/17. Sutures out. Will need [facility]GY follow up at [place]. Assessment & Plan (05/28/2022 1:53 PM RN ONCOLOGY): - Presented for elective C 3-5 ACDF and C3-7 posterior fusion on 03/17. Sutures out. Will need NSGY follow up at [place]. Assessment & Plan (05/27/2022 3:53 PM RN ONCOLOGY): - Presented for elective C 3-5 ACDF and C3-7 posterior fusion on 03/17. Sutures out. Will need NSGY follow up at [place]. Assessment & Plan (05/25/2022 3:16 PM RN ONCOLOGY): - Presented for elective C 3-5 ACDF and C3-7 posterior fusion on 03/17. Sutures out. Will need NSGY follow up at [place]. Strangulated inguinal hernia 09/19/2021 Overview (04/09/2022): Added automatically from request for surgery [id number] Assessment & Plan (08/16/2022 5:36 PM CDT): [...] stranding. Assessment & Plan (06/23/2022 4:00 PM RN ONCOLOGY): S/p ex lap and repair 04/09. Had evidence of intestinal ischemia. Well healed incision. -Still NPO, swallow study redone given his being more awake, but speech recommends continued NPO status. On J tube feeds. Assessment & Plan (06/22/2022 4:16 PM RN ONCOLOGY): S/p ex lap and repair 04/09. Had evidence of intestinal ischemia. Well healed incision. -Still NPO, swallow study redone given his being more awake, but speech recommends continued NPO status. Assessment & Plan (06/21/2022 3:27 PM RN ONCOLOGY): S/p ex lap and repair 04/09. Had evidence of intestinal ischemia. Well healed incision. -Still NPO, swallow study redone given his being more awake, but speech recommends continued NPO status. Assessment & Plan (06/20/2022 6:16 PM RN ONCOLOGY): S/p ex lap and repair 04/09. Had evidence of intestinal ischemia. Well healed incision. -Still NPO, swallow study redone given his being more awake, but speech recommends continued NPO status. Assessment & Plan (06/16/2022 11:56 AM RN ONCOLOGY): S/p ex lap and repair 04/09. Had evidence of intestinal ischemia. Well healed incision. -Tolerating TF at goal per Gtube. Nutritional needs appear to be getting met. -Remains NPO per speech follow up on 06/14. Ok to do ice chips. Assessment & Plan (06/15/2022 1:20 PM RN ONCOLOGY): S/p ex lap and repair 04/09. Had evidence of intestinal ischemia. Well healed incision. -Tolerating TF at goal per Gtube. Nutritional needs appear to be getting met. -Remains NPO per speech follow up on 06/14. Ok to do ice chips. Assessment & Plan (06/14/2022 2:20 PM RN ONCOLOGY): S/p ex lap and repair 04/09. Had evidence of intestinal ischemia. Well healed incision. -Tolerating TF at goal per Gtube. Nutritional needs appear to be getting met. -Remains NPO per speech follow up on 06/08. Ok to do ice chips. Assessment & Plan (06/13/2022 3:59 PM RN ONCOLOGY): S/p ex lap and repair 04/09. Had evidence of intestinal ischemia. Well healed incision. -Tolerating TF at goal per Gtube. Nutritional needs appear to be getting met. -Remains NPO per speech follow up on 06/08. Assessment & Plan (06/12/2022 6:20 PM RN ONCOLOGY): S/p ex lap and repair 04/09. Had evidence of intestinal ischemia. Well healed incision. - tolerating TF per Gtube. Nutritional needs appear to be getting met. -Remains NPO per speech f/u 06/08. Billing statement I have reviewed electrolytes, K 3.6, ca 12.5. Discussed with RN and no tube feed residuals. Plan strict aspiration precautions, further advance diet and adjust tube feeds per sap pi architect. Plan to recheck bed weight. Assessment & Plan (06/11/2022 4:35 PM RN ONCOLOGY): S/p ex lap and repair 04/09. Had evidence of intestinal ischemia. Well healed incision. - tolerating TF per Gtube. Nutritional needs appear to be getting met. -Remains NPO per speech f/u 06/08. Billing statement I have reviewed electrolytes, K 3.6, ca 12.5. Discussed with RN and no tube feed residuals. Plan strict aspiration precautions, further advance diet and adjust tube feeds per sap pi architect. Plan to recheck bed weight. Assessment & Plan (06/10/2022 3:30 PM RN ONCOLOGY): S/p ex lap and repair 04/09. Had evidence of intestinal ischemia. Well healed incision. - tolerating TF per Gtube. Nutritional needs appear to be getting met. -Remains NPO per speech f/u 06/08. Billing statement I have reviewed electrolytes, K 3.6, ca 12.8. Discussed with RN and no tube feed residuals. Plan strict aspiration precautions, further advance diet and adjust tube feeds per sap pi architect. Plan to recheck bed weight. Assessment & Plan (06/10/2022 9:27 AM RN ONCOLOGY): S/p ex lap and repair 04/09. Had evidence of intestinal ischemia. Well healed incision. - tolerating TF per Gtube. Nutritional needs appear to be getting met. - ADAT per speech. Billing statement I have reviewed electrolytes, K 3.3, ca 10.6. Discussed with RN and no tube feed residuals. Plan strict aspiration precautions, further advance diet and adjust tube feeds per sap pi architect. Plan to recheck bed weight. Assessment & Plan (06/08/2022 4:11 PM RN ONCOLOGY): S/p ex lap and repair 04/09. Had evidence of intestinal ischemia. Well healed incision. - tolerating TF per Gtube. Nutritional needs appear to be getting met. - ADAT per speech. Billing statement I have reviewed electrolytes, K 3.3, ca 10.6. Discussed with RN and no tube feed residuals. Plan further advance diet and adjust tube feeds per sap pi architect. Plan to recheck bed weight. Assessment & Plan (06/07/2022 11:08 AM RN ONCOLOGY): S/p ex lap and repair 04/09. Had [...] weight. Assessment & Plan (06/06/2022 6:41 PM RN ONCOLOGY): - S/p ex lap and repair 04/09. Had evidence of intestinal ischemia. Well healed incision. - tolerating TF per Gtube. - NPO per speech. Billing statement I have reviewed electrolytes, K 3.3, ca 10.6. Discussed with RN and no tube feed residuals. Plan to continue tube feeds at current rate. Assessment & Plan (06/05/2022 2:01 PM RN ONCOLOGY): - S/p ex lap and repair 04/09. Had evidence of intestinal ischemia. Well healed incision. - tolerating TF - NPO per speech Assessment & Plan (06/04/2022 11:09 AM RN ONCOLOGY): - S/p ex lap and repair 04/09. Had evidence of intestinal ischemia. Well healed incision. - tolerating TF - NPO per speech Assessment & Plan (06/02/2022 2:26 PM RN ONCOLOGY): - S/p ex lap and repair 04/09. Had evidence of intestinal ischemia. Well healed incision. - tolerating TF - NPO per speech Assessment & Plan (06/01/2022 2:18 PM RN ONCOLOGY): - S/p ex lap and repair 04/09. Had evidence of intestinal ischemia. Well healed incision. - tolerating TF - NPO per speech Assessment & Plan (05/31/2022 2:57 PM RN ONCOLOGY): - S/p ex lap and repair 04/09. Had evidence of intestinal ischemia. Well healed incision. - tolerating TF - NPO per speech Assessment & Plan (05/30/2022 2:04 PM RN ONCOLOGY): - S/p ex lap and repair 04/09. Had evidence of intestinal ischemia. Well healed incision. - tolerating TF - NPO 2/2 mental status Assessment & Plan (05/29/2022 3:13 PM RN ONCOLOGY): - S/p ex lap and repair 04/09. Had evidence of intestinal ischemia. Well healed incision. Assessment & Plan (05/28/2022 1:53 PM RN ONCOLOGY): - S/p ex lap and repair 04/09. Had evidence of intestinal ischemia. Well healed incision. Assessment & Plan (05/27/2022 3:53 PM RN ONCOLOGY): - S/p ex lap and repair 04/09. Had evidence of intestinal ischemia. Well healed incision. Assessment & Plan (05/25/2022 3:17 PM RN ONCOLOGY): - S/p ex lap and repair 04/09. Had evidence of intestinal ischemia. Well healed incision. Age-related osteoporosis wit hout current pathological fracture 08/23/2021 Assessment & Plan (10/25/2021 3:35 PM CDT): Not well controlled, patient also has hypo vitamin-D Will start alendronate 70 mg weekly Continue ergocalciferol 71334 units weekly Ensure calcium approximately 1000 mg [...] (01/27/2021): Added automatically from request for surgery [id number] Bilateral primary osteoarthritis of knee 021 Assessment [...] ambulation Assessment & Plan (04/29/2021 11:06 AM RN ONCOLOGY): Stable, patient reports occasional episodes of vertigo, [...] Stable. Assessment & Plan (06/24/2022 5:04 PM RN ONCOLOGY): History of COPD. Managed with Budesonide nebs and PRN albuterol. Prior exacerbation treatment this stay, currently controlled. Currently on RA, no wheezing. Unable to follow commands for MDI, continue nebulizers with RT and doing well. Stable. Assessment & Plan (06/23/2022 3:49 PM RN ONCOLOGY): History of COPD. Managed with Budesonide nebs and PRN albuterol. Prior exacerbation treatment this stay, currently controlled. Currently on RA, no wheezing. -Unable to follow commands for MDI, continue nebulizers with RT and doing well. Assessment & Plan (06/22/2022 4:10 PM RN ONCOLOGY): History of COPD. Managed with Budesonide nebs and PRN albuterol. Prior exacerbation treatment this stay, currently controlled. Currently on RA, no wheezing. -Unable to follow commands for MDI, continue nebulizers and doing well. Assessment & Plan (06/21/2022 3:24 PM RN ONCOLOGY): History of COPD. Managed with Budesonide nebs and PRN albuterol. Prior exacerbation treatment this stay, currently controlled. Currently on RA, no wheezing. -Unable to follow commands for MDI, continue nebs. Doing well. Assessment & Plan (06/20/2022 6:10 PM RN ONCOLOGY): History of COPD. Managed with Budesonide nebs and PRN albuterol. Prior exacerbation treatment this stay, currently controlled. Currently on RA, no wheezing. -Unable to follow commands for MDI, continue nebs. Doing well. Assessment & Plan (06/16/2022 11:50 AM RN ONCOLOGY): History of COPD. Managed with Budesonide nebs and PRN albuterol. Prior exacerbation treatment this stay, currently controlled. Currently on RA, no wheezing. -Unable to follow commands for MDI, continue nebs. Assessment & Plan (06/15/2022 1:18 PM RN ONCOLOGY): History of COPD. Managed with Budesonide nebs and PRN albuterol. Prior exacerbation treatment this stay, currently controlled. Currently on RA, no wheezing. -Unable to follow commands for MDI, continue nebs. Assessment & Plan (06/14/2022 2:19 PM RN ONCOLOGY): History of COPD. Managed with Budesonide nebs and PRN albuterol. Prior exacerbation treatment this stay, currently controlled. Currently on RA, no wheezing. -Unable to follow commands for MDI, continue nebs. Assessment & Plan (06/13/2022 3:55 PM RN ONCOLOGY): History of COPD. Managed with Budesonide nebs and PRN albuterol. Prior exacerbation treatment this stay, currently controlled. Currently on RA, no wheezing. -Unable to follow commands for MDI, continue nebs. Assessment & Plan (06/12/2022 6:18 PM RN ONCOLOGY): Hx COPD. Managed Budesonide nebs and PRN [...] plan. Assessment & Plan (06/11/2022 4:33 PM RN ONCOLOGY): Hx COPD. Managed Budesonide nebs and PRN [...] plan. Assessment & Plan (06/10/2022 3:24 PM RN ONCOLOGY): Hx COPD. Managed Budesonide nebs and PRN albuterol. Prior exacerbation treatment this stay, currently controlled On 2L-RA. Unable to follow commands for MDI, continue nebs. Billing statement Reviewed O2 requirements last 24hrs and recent chest imaging, exam without wheezing but encephalopathy limits use of MDIs. Plan to continue nebs as prescribed. No change in current plan. Assessment & Plan (06/10/2022 9:25 AM RN ONCOLOGY): Hx COPD. Managed Budesonide nebs and PRN albuterol. Prior exacerbation treatment this stay, currently controlled On 2L-RA. Billing statement Reviewed O2 requirements last 24hrs and recent chest imaging, exam without wheezing but encephalopathy limits use of MDIs. Plan to continue nebs as prescribed. No change in current plan. Assessment & Plan (06/08/2022 4:03 PM RN ONCOLOGY): Hx COPD. Managed Budesonide nebs and PRN albuterol. Prior exacerbation treatment this stay, currently controlled On 2L-RA. Billing statement Reviewed O2 requirements last 24hrs and recent chest imaging, exam without wheezing but encephalopathy limits use of MDIs. Plan to continue nebs as prescribed. Assessment & Plan (06/07/2022 11:02 AM RN ONCOLOGY): - Budesonide nebs and PRN albuterol. Prior exacerbation treatment this stay, currently controlled On RA Billing statement Reviewed O2 requirements last 24hrs and recent chest imaging, exam without wheezing but encephalopathy limits use of MDIs. Plan to continue nebs as prescribed. Assessment & Plan (06/06/2022 6:34 PM RN ONCOLOGY): - Budesonide nebs and PRN albuterol. Prior exacerbation treatment this stay, currently controlled On RA Billing statement Reviewed O2 requirements and recent chest imaging. Plan DC continuous O2 sat monitoring. Assessment & Plan (06/05/2022 2:02 PM RN ONCOLOGY): - Budesonide nebs and PRN albuterol. Prior exacerbation treatment this stay, currently controlled On RA Assessment & Plan (05/30/2022 2:04 PM RN ONCOLOGY): - Budesonide nebs and PRN albuterol. Prior exacerbation treatment this stay, currently controlled On RA Assessment & Plan (05/29/2022 3:13 PM RN ONCOLOGY): - Budesonide nebs and PRN albuterol. Prior exacerbation treatment this stay, currently controlled On RA Assessment & Plan (05/28/2022 1:53 PM RN ONCOLOGY): - Budesonide nebs and PRN albuterol. Prior exacerbation treatment this stay, currently controlled On RA Assessment & Plan (05/27/2022 3:53 PM RN ONCOLOGY): - Budesonide nebs and PRN albuterol. Prior exacerbation treatment this stay, currently controlled On RA Assessment & Plan (05/26/2022 1:17 PM RN ONCOLOGY): - Budesonide nebs and PRN albuterol. Prior [...] Ellipta Assessment & Plan (06/07/2021 4:52 PM RN ONCOLOGY): Stable, well controlled; quit smoking approximately 24 years ago Active in pulmonary rehab, walking for up to 60 minutes at a time new line rare use of rescue inhaler Continue Trelegy Ellipta 1 puff daily Assessment & Plan (04/29/2021 11:07 AM RN ONCOLOGY): Stable, well controlled; patient reports he does get dyspneic especially significant exertion Follows with pulmonology for management Continue Trelegy Ellipta 1 puff daily, albuterol p.r.n. for dyspnea Assessment & Plan (02/21/2021 8:31 PM RN ONCOLOGY): Continues to have significant cough, barking cough; [...] daily Assessment & Plan (06/07/2021 4:51 PM RN ONCOLOGY): Stable, well controlled; continue to monitor Assessment & Plan (04/29/2021 11:07 AM RN ONCOLOGY): Stable, well controlled; patient reports occasional episodes of nocturia x1 Continue finasteride 5 mg daily Assessment & Plan (05/06/2020 12:57 PM RN ONCOLOGY): Patient does report increased urine frequency. UA [...] issues. Assessment & Plan (05/06/2020 12:56 PM RN ONCOLOGY): Continue meclizine prn. Assessment & Plan (04/08/2020 3:22 AM RN ONCOLOGY): Patient feels ataxic but [id number] and [id number] were normal. MRI is pending. Neurology has been consulted. Meclizine has not helped. Fall precautions. May need PT after MRI is completed. Assessment & Plan (04/07/2020 1:52 PM RN ONCOLOGY): With new lethargy, orthostatic hypotension- I believe [...] 03/04/2019 Assessment & Plan (03/04/2019 2:55 PM RN ONCOLOGY): Will do emg/ncs . Recommended cock-up wrist [...] monitor. Assessment & Plan (06/24/2022 5:05 PM RN ONCOLOGY): Continue amlodipine 10 mg daily. Discontinued home HCTZ on admit. On coreg and uptitrated to 25 BID on 06/05/22. Volume stable off dialysis. No peripheral edema. -Mostly normotensive, will continue to monitor. Assessment & Plan (06/23/2022 3:49 PM RN ONCOLOGY): Continue amlodipine 10 mg daily. Discontinued home HCTZ on admit. On coreg and uptitrated to 25 BID on 06/05/22. Volume stable off dialysis. -Mostly normotensive, will continue to monitor. Assessment & Plan (06/22/2022 4:11 PM RN ONCOLOGY): Continue amlodipine 10 mg daily. Discontinued home HCTZ on admit. On coreg and uptitrated to 25 BID on 06/05/22. Volume stable off dialysis. -Mostly normotensive, will continue to monitor. Assessment & Plan (06/21/2022 3:25 PM RN ONCOLOGY): Continue amlodipine 10 mg daily. Discontinued home HCTZ on admit. On coreg and uptitrated to 25 BID on 06/05. Volume stable. -Mostly normotensive, will continue to monitor. Assessment & Plan (06/20/2022 6:10 PM RN ONCOLOGY): -Continue amlodipine 10 mg daily -Continue coreg. Uptitrated coreg 25 BID on 06/05. Volume stable. -Mostly normotensive, will continue to monitor. Assessment & Plan (06/16/2022 11:50 AM RN ONCOLOGY): -Continue amlodipine 10 mg daily -Continue coreg. Uptitrated coreg 25 BID on 06/05. -Mostly normotensive, will continue to monitor. Assessment & Plan (06/15/2022 1:17 PM RN ONCOLOGY): -Continue amlodipine 10 mg daily -Continue coreg. Uptitrated coreg 25 BID on 06/05. -Mostly normotensive, will continue to monitor. Assessment & Plan (06/14/2022 2:19 PM RN ONCOLOGY): -Continue amlodipine 10 mg daily -Continue coreg. Uptitrated coreg 25 BID on 06/05. -Mostly normotensive, will continue to monitor. Assessment & Plan (06/13/2022 3:54 PM RN ONCOLOGY): -Continue amlodipine 10 mg daily -Continue coreg. Uptitrated coreg 25 BID on 06/05. -Mostly normotensive, will continue to monitor. Assessment & Plan (06/12/2022 6:19 PM RN ONCOLOGY): Cont amlodipine, coreg, uptitrated coreg to 25 bid given persistent HTN 2/20. Improved trend, continue dosing at this level. Billing statement Plan continue dual agent control. Plan monitor renal function as OP. Assessment & Plan (06/11/2022 4:34 PM RN ONCOLOGY): Cont amlodipine, coreg, uptitrated coreg to 25 bid given persistent HTN 2/20. Improved trend, continue dosing at this level. Billing statement Plan continue dual agent control. Plan monitor renal function. Assessment & Plan (06/10/2022 3:25 PM RN ONCOLOGY): Cont amlodipine, coreg, uptitrated coreg to 25 bid given persistent HTN 2/20. Improved trend, continue dosing at this level. Billing statement Plan continue dual agent control. Plan monitor renal function. Assessment & Plan (06/10/2022 9:25 AM RN ONCOLOGY): Cont amlodipine, coreg, uptitrated coreg to 25 bid given persistent HTN 2/20. Improved trend, continue dosing at this level. Billing statement Plan continue dual agent control. Assessment & Plan (06/08/2022 4:04 PM RN ONCOLOGY): Cont amlodipine, coreg, uptitrated coreg to 25 bid given persistent HTN 2/20. Improved trend, continue dosing at this level. Billing statement Plan dual agent control. Assessment & Plan (06/07/2022 11:03 AM RN ONCOLOGY): Cont amlodipine, coreg, uptitrated coreg to 25 bid given persistent HTN 2/20. Improved trend, continue dosing at this level. Assessment & Plan (06/06/2022 6:35 PM RN ONCOLOGY): Cont amlodipine, coreg, uptitrated coreg to 25 bid given persistent HTN 2/20. Improved trend, will hold dosing at this level. Assessment & Plan (06/05/2022 2:02 PM RN ONCOLOGY): Cont amlodipine, coreg, uptitrated coreg to 25 bid given persistent HTN 2/20 Assessment & Plan (05/30/2022 2:05 PM RN ONCOLOGY): Cont amlodipine, coreg Assessment & Plan (05/29/2022 3:13 PM RN ONCOLOGY): Cont current meds Assessment & Plan (05/28/2022 1:53 PM RN ONCOLOGY): Cont current meds Assessment & Plan (05/27/2022 3:53 PM RN ONCOLOGY): Cont current meds Assessment & Plan (05/26/2022 1:17 PM RN ONCOLOGY): Cont current meds Assessment & Plan (12/20/2021 [...] mg Assessment & Plan (06/07/2021 4:50 PM RN ONCOLOGY): Stable, well controlled; blood pressure at target today Continue hydrochlorothiazide 25 mg daily Assessment & Plan (04/29/2021 11:04 AM RN ONCOLOGY): Controlled; blood pressure at target Continue amlodipine 10 mg, to chlorothiazide 25 mg, losartan 100 mg Assessment & Plan (07/20/2020 7:39 AM CDT): Rechecked in office and was 136/78. Will continue to monitor. May need to change medication. Pt also sees cardiology. Will see him back next month and will recheck Assessment & Plan (05/06/2020 12:55 PM RN ONCOLOGY): Presented with elevated BP. Presently well controlled. Continue home Amlodipine and Losartan. HCTZ is on hold as patient is currently on iv fluids. Assessment & Plan (04/08/2020 3:18 AM RN ONCOLOGY): Amlodipine and losartan have been resumed with hold parameters. Holding hydrochlorothiazide as it can cause vertigo. Assessment & Plan (03/24/2020 8:24 AM RN ONCOLOGY): Blood pressure is adequately controlled on current [...] recommended. Assessment & Plan (06/07/2021 4:51 PM RN ONCOLOGY): Stable, well controlled; continue sertraline 100 mg [...] change. Assessment & Plan (05/06/2020 12:54 PM RN ONCOLOGY): Continue home Prozac. Mood is stable at this time. Assessment & Plan (04/08/2020 3:18 AM RN ONCOLOGY): Continue SSRI Assessment & Plan (03/24/2020 8:24 AM RN ONCOLOGY): Stable on current medication. Continue fluoxetine as [...] mg Assessment & Plan (06/07/2021 4:50 PM RN ONCOLOGY): Stable, well controlled; no side effects from current medication Continue rosuvastatin 40 mg daily Assessment & Plan (04/29/2021 11:05 AM RN ONCOLOGY): Stable, well controlled LDL less than 100; continues to have elevated ASCVD risk score 24.8% Continue rosuvastatin 40 mg daily, good blood pressure control Assessment & Plan (05/06/2020 12:54 PM RN ONCOLOGY): Continue home statin Assessment & Plan (04/08/2020 3:18 AM RN ONCOLOGY): Continue Crestor Assessment & Plan (03/24/2020 8:24 AM RN ONCOLOGY): Lipid abnormalities are stable, reviewed previous lipid levels in [facility]. Pharmacotherapy as ordered. Order for lipid [...] 03/18/2023 Assessment & Plan (06/17/2022 5:35 PM RN ONCOLOGY): New dx after mild coughing noted and then called in 05/29 to note she tested positive at home. Remdesivir x 3 doses. No hypoxia/fever. COVID RECOVERED Assessment & Plan (06/16/2022 11:58 AM RN ONCOLOGY): New dx after mild coughing noted and then called in 05/29 to note she tested positive at home. Remdesivir x 3 doses. No hypoxia/fever. COVID RECOVERED Assessment & Plan (06/15/2022 1:22 PM RN ONCOLOGY): New dx after mild coughing noted and then called in 05/29 to note she tested positive at home. Remdesivir x 3 doses. No hypoxia/fever. COVID RECOVERED Assessment & Plan (06/14/2022 2:26 PM RN ONCOLOGY): New dx after mild coughing noted and then called in 05/29 to note she tested positive at home. Remdesivir x 3 doses. No hypoxia/fever. COVID RECOVERED Assessment & Plan (06/13/2022 4:14 PM RN ONCOLOGY): New dx after mild coughing noted and then called in 05/29 to note she tested positive at home. Remdesivir x 3 doses. No hypoxia/fever. COVID RECOVERED Assessment & Plan (06/12/2022 6:19 PM RN ONCOLOGY): - new dx after mild coughing noted [...] SNF. Assessment & Plan (06/11/2022 4:34 PM RN ONCOLOGY): - new dx after mild coughing noted [...] SNF. Assessment & Plan (06/10/2022 3:25 PM RN ONCOLOGY): - new dx after mild coughing noted [...] SNF. Assessment & Plan (06/10/2022 9:25 AM RN ONCOLOGY): - new dx after mild coughing noted [...] SNF. Assessment & Plan (06/08/2022 4:04 PM RN ONCOLOGY): - new dx after mild coughing noted [...] SNF. Assessment & Plan (06/07/2022 11:03 AM RN ONCOLOGY): - new dx after mild coughing noted [...] per hospital policy, awaiting private room at [facility]. Assessment & Plan (06/06/2022 6:33 PM RN ONCOLOGY): - new dx after mild coughing noted [...] policy. Assessment & Plan (06/05/2022 1:56 PM RN ONCOLOGY): - new dx after mild coughing noted and then called in 05/29 to note she tested positive at home - given high risk for worsening and has mild cough gave remdesivir x 3 doses - remains on isolation (05/30 day 1) - anticipate 10 days - thus far no hypoxia/fever, still having intermittent cough Assessment & Plan (06/04/2022 11:00 AM RN ONCOLOGY): - new dx after mild coughing noted and then called in 05/29 to note she tested positive at home - given high risk for worsening and has mild cough gave remdesivir x 3 doses - remains on isolation (05/30 day 1) - anticipate 10 days - thus far no hypoxia/fever and cough slowly improving Assessment & Plan (06/03/2022 2:56 PM RN ONCOLOGY): - new dx after mild coughing noted and then called in 05/29 to note she tested positive at home - given high risk for worsening and has mild cough gave remdesivir x 3 doses - cough seems to be improving today, remains on isolation ( 1) - monitor for hypoxia/fever Assessment & Plan (06/02/2022 2:25 PM RN ONCOLOGY): - new dx after mild coughing noted and then called in 05/29 to note she tested positive at home - given high risk for worsening and has mild cough gave remdesivir x 3 doses - thus far still coughing, had one cough induced emesis event 06/01 PM - monitor for hypoxia/fever Assessment & Plan (06/01/2022 2:17 PM RN ONCOLOGY): - new dx after mild coughing noted and then called in 05/29 to note she tested positive at home - given high risk for worsening and has mild cough gave remdesivir x 3 doses which he finishes today; no further complication as of now - monitor for hypoxia, currently on RA Assessment & Plan (05/31/2022 2:56 PM RN ONCOLOGY): - new dx after mild coughing noted and then called in 05/29 to note she tested positive at home - given high risk for worsening and has mild cough will complete Remdesivir 200 mg x1 then 100 mg x 2 additional doses (completes 06/01) - monitor for hypoxia, currently on RA Assessment & Plan (05/30/2022 1:59 PM RN ONCOLOGY): - new dx after mild coughing noted and then called in last night to note she tested positive at home - given high risk for worsening and has mild cough will start Remdesivir 200 mg x1 then 100 mg x 2 additional doses - monitor for hypoxia, currently on RA Transaminitis 05/30/2022 06/17/2022 Assessment & Plan (06/17/2022 5:35 PM RN ONCOLOGY): Mild increase noted when diagnosed with Covid. Statin held. Now resolved. -Continue Crestor 10mg Assessment & Plan (06/16/2022 11:58 AM RN ONCOLOGY): Mild increase noted when diagnosed with Covid. Statin held. Now resolved. -Continue Crestor 10mg Assessment & Plan (06/15/2022 1:23 PM RN ONCOLOGY): Mild increase noted when diagnosed with Covid. Statin held. Now resolved. -Re-starting Crestor 10mg Assessment & Plan (06/14/2022 2:26 PM RN ONCOLOGY): Mild increase noted when diagnosed with Covid. Statin held. Now resolved. -Re-starting Crestor 10mg Assessment & Plan (06/13/2022 4:19 PM RN ONCOLOGY): Mild increase noted when diagnosed with Covid. Statin held. Now resolved. -Re-starting Crestor 10mg Assessment & Plan (06/05/2022 2:01 PM RN ONCOLOGY): - mild noted on recent labs, ?2/2 covid - still mild uptrend - holding statin as well in meantime, reviewed med list and rest of meds aren't big offenders for LFT issues Assessment & Plan (06/03/2022 2:57 PM RN ONCOLOGY): - mild noted on recent labs, ?viral vs. Other >meds - cont to hold statin and monitor > mildly better today, cont to watch Assessment & Plan (06/02/2022 2:26 PM RN ONCOLOGY): - mild noted on recent labs, ?viral vs. Other >meds - cont to hold statin and monitor Assessment & Plan (06/01/2022 2:19 PM RN ONCOLOGY): - mild noted on recent labs, ?viral vs. Other >meds - still mildly worsening so will hold statin at this point and observe course Assessment & Plan (05/31/2022 2:58 PM RN ONCOLOGY): - mild noted on recent labs, ?viral [...] monitoring. Assessment & Plan (06/24/2022 5:02 PM RN ONCOLOGY): R femoral v DVT noted on US 05/08. No pitting edema appreciated on RLE. Plan: Continue Apixaban 5 BID. Monitoring serial blood counts and Hb remains stable on serial monitoring. Assessment & Plan (06/23/2022 3:48 PM RN ONCOLOGY): R femoral v DVT noted on US 05/08. No pitting edema appreciated on RLE. Plan: - Continue Apixaban 5 BID. Monitoring serial blood counts and Hb remains stable on serial monitoring. Assessment & Plan (06/22/2022 4:07 PM RN ONCOLOGY): R femoral v DVT noted on US 05/08. No pitting edema appreciated on RLE. - Continue Apixaban 5 BID. Monitoring serial blood counts and Hb remains stable. Assessment & Plan (06/21/2022 3:22 PM RN ONCOLOGY): R femoral v DVT noted on US 05/08. No pitting edema appreciated on RLE. - Continue Apixaban 5 BID. Monitoring serial blood counts and remains stable. Assessment & Plan (06/20/2022 6:08 PM RN ONCOLOGY): R femoral v DVT noted on US 05/08. No pitting edema appreciated on RLE. - Continue Apixaban 5 BID. Assessment & Plan (06/16/2022 12:00 PM RN ONCOLOGY): R femoral v DVT noted on US 05/08. No pitting edema appreciated on RLE. - Continue Apixaban 5 BID Assessment & Plan (06/15/2022 1:23 PM RN ONCOLOGY): R femoral v DVT noted on US 05/08. No pitting edema appreciated on RLE. - Continue Apixaban 5 BID Assessment & Plan (06/14/2022 2:26 PM RN ONCOLOGY): R femoral v DVT noted on US 05/08. No pitting edema appreciated on RLE. - Continue Apixaban 5 BID Assessment & Plan (06/13/2022 4:20 PM RN ONCOLOGY): R femoral v DVT noted on US 05/08. No pitting edema appreciated on RLE. - Continue Apixaban 5 BID Assessment & Plan (06/12/2022 6:16 PM RN ONCOLOGY): R femoral v DVT noted on US 05/08. Treating with apixaban 5 bid No pitting edema appreciated on RLE. F/u Hb 8.5 on anticoagulation. Billing statement Personally reviewed doppler results with RLE DVT and agree with continued plan for apixiban therapy for acute DVT for 3mo duration (triggered). Assessment & Plan (06/11/2022 4:32 PM RN ONCOLOGY): R femoral v DVT noted on US 05/08. Treating with apixaban 5 bid No pitting edema appreciated on RLE. F/u Hb 8.5 on anticoagulation. Billing statement Personally reviewed doppler results with RLE DVT and agree with continued plan for apixiban therapy for acute DVT for 3mo duration (triggered). Assessment & Plan (06/10/2022 3:21 PM RN ONCOLOGY): R femoral v DVT noted on US 05/08. Treating with apixaban 5 bid No pitting edema appreciated on RLE. F/u Hb 8.1 on anticoagulation. Billing statement I have reviewed doppler results with RLE DVT and agree with continued plan for apixiban therapy for acute DVT for 3mo duration (triggered). Assessment & Plan (06/10/2022 9:23 AM RN ONCOLOGY): R femoral v DVT noted on US 05/08. Treating with apixaban 5 bid No pitting edema appreciated on RLE. F/u Hb 8.1 on anticoagulation. Billing statement I have reviewed doppler results with RLE DVT and agree with continuing apixiban therapy for acute DVT for 3mo duration (triggered). Assessment & Plan (06/08/2022 4:01 PM RN ONCOLOGY): R femoral v DVT noted on US 05/08 - cont apixaban 5 bid No pitting edema appreciated. F/u Hb 8.1 on anticoagulation. Billing statement I have reviewed doppler results with RLE DVT and agree with continuing apixiban therapy for acute DVT for 3mo duration (triggered). Assessment & Plan (06/07/2022 10:59 AM RN ONCOLOGY): - noted on US 05/08 - cont apixaban 5 bid No pitting edema appreciated. Billing statement I have reviewed doppler results with RLE DVT and agree with continuing apixiban therapy for acute DVT for 3mo duration (triggered). Assessment & Plan (06/06/2022 6:28 PM RN ONCOLOGY): - noted on US 05/08 - cont apixaban 5 bid No pitting edema appreciated. Billing statement I have reviewed doppler results with RLE DVT and agree with continuing apixiban therapy for acute DVT. Assessment & Plan (06/05/2022 2:01 PM RN ONCOLOGY): - noted on US 05/08 - cont apixaban 5 bid Assessment & Plan (06/04/2022 11:09 AM RN ONCOLOGY): - noted on US 05/08 - cont apixaban 5 bid Assessment & Plan (06/03/2022 2:57 PM RN ONCOLOGY): - noted on 05/08 - cont apixaban 5 bid Assessment & Plan (06/02/2022 2:26 PM RN ONCOLOGY): - noted on 05/08 - cont apixaban 5 bid Assessment & Plan (06/01/2022 2:18 PM RN ONCOLOGY): - noted on 05/08 - cont apixaban 5 bid Assessment & Plan (05/31/2022 2:57 PM RN ONCOLOGY): - noted on 05/08 - cont apixaban 5 bid Assessment & Plan (05/30/2022 2:04 PM RN ONCOLOGY): - noted on US 05/08 - cont apixaban 5 bid Goals of care, counseling/discussion 05/27/2022 03/18/2023 Assessment & Plan (07/14/2022 12:11 PM CDT): Multiple discussions throughout prolonged course, present goal is short term SNF placement w/ eventual goal of returning home. - Consulted palliative care for assistance in alf goals. Much appreciated. Assessment & Plan (06/26/2022 5:14 PM CDT): Poor prognosis for most of hospitalization with severe encephalopathy. Was not following commands with behavioral issues that prevented patient from going SNF as skilled (insurance will not cover SNF if he is unable to skill for rehab, which requires following commands). Awaited family decision on facility for chcf care at SNF (vs [facility] with private duty, which family declines). CM following and spoke with in f/u 06/21, 06/22, 06/23. Remains full code. Concern for recurrent aspiration events despite tube feeds and ongoing lack of progress seen in mental status. Marked improvement with normalization of calcium 3/13. Will ask PT/OT to reassess. Anticipate family meeting once MRI results obtained to firm up DC plans. Consulted palliative care for assistance in social security benefits interviewer goals. Much appreciated. Assessment & Plan (06/25/2022 10:21 AM CDT): Poor prognosis. Really not following commands and has behavioral issues that are preventing patient from going SNF as skilled (insurance will not cover SNF if he is unable to skill for rehab, which requires following commands). Awaiting family decision on facility for chcf care at SNF (vs [facility] with private duty, which family declines). CM following and spoke with in f/u 06/21, 06/22, 06/23. Remains full code. Concern for recurrent aspiration events despite tube feeds and ongoing lack of progress seen in mental status. Anticipate family meeting once MRI results obtained to firm up DC plans. Consulted palliative care for assistance in alf goals. Much appreciated. Assessment & Plan (06/24/2022 5:05 PM RN ONCOLOGY): Poor prognosis. Really not following commands and has behavioral issues that are preventing patient from going SNF as skilled (insurance will not cover SNF if he is unable to skill for rehab, which requires following commands). Awaiting family decision on facility for chcf care at SNF (vs [facility] with private duty, which family declines). CM following and spoke with in f/u 06/21, 06/22, 06/23. Remains full code. Concern for recurrent aspiration events despite tube feeds and ongoing lack of progress seen in mental status. Anticipate family meeting once MRI results obtained to firm up DC plans. Consulted palliative care for assistance in social security benefits interviewer goals. Much appreciated. Assessment & Plan (06/23/2022 3:57 PM RN ONCOLOGY): Really not following commands and has behavioral issues that are preventing patient from going SNF as skilled (insurance will not cover SNF if he is unable to skill for rehab, which requires following commands). Awaiting family decision on facility for chcf care at SNF (vs [facility] with private duty, which family declines). CM following and spoke with in f/u 06/21, 06/22. Remains full code. Concern for recurrent aspiration events despite tube feeds and ongoing lack of progress seen in mental status. Anticipate family meeting once MRI results obtained to firm up DC plans. Consulted palliative care for assistance in social security benefits interviewer goals. Much appreciated. Assessment & Plan (06/22/2022 4:13 PM RN ONCOLOGY): Really not following commands and has behavioral issues that are preventing patient from going SNF (insurance will not cover SNF if he is unable to skill for rehab, which requires following commands). Looking at chcf care at SNF as OP (vs [facility] with private duty, family declines). CM following and spoke with in f/u 38. Remains full code. Concern for recurrent aspiration events despite tube feeds and ongoing lack of progress seen in mental status. Anticipate family meeting once MRI results obtained to firm up DC plans. Consulted palliative care for assistance in social security benefits interviewer goals. Assessment & Plan (06/21/2022 3:26 PM RN ONCOLOGY): Really not following commands and has behavioral issues that are preventing patient from going SNF (insurance will not cover SNF if he is unable to skill for rehab, which requires following commands). Looking at chcf care at SNF as OP vs [facility] with private duty. CM following and spoke with in f/u 38. Remains full code. Anticipate family meeting once MRI results obtained to firm up DC plans. Consider palliative care involvement. Assessment & Plan (06/20/2022 6:11 PM RN ONCOLOGY): Really not following commands and has behavioral issues that are preventing patient from going SNF (insurance will not cover SNF if he is unable to skill for rehab, which requires following commands). CM following and spoke with in f/u 38. Remains full code. Assessment & Plan (06/16/2022 11:58 AM RN ONCOLOGY): Multiple discussions with from prior teams (Dr. Barksdale and Dr. Marley) > cont supportive treatments with goal of improvement of encephalopathy and d/c to SNF; remains Full Code. - Spouse, Normal, willing to accept MRI after today's discussion. - Anticipate d/c to SNF, however not medically ready yet. Assessment & Plan (06/15/2022 1:22 PM RN ONCOLOGY): Multiple discussions with from prior teams (Dr. Barksdale and Dr. Marley) > cont supportive treatments with goal of improvement of encephalopathy and d/c to SNF; remains Full Code. - Spouse, Normal, willing to accept MRI after today's discussion. - Anticipate d/c to SNF, however not medically ready yet. Assessment & Plan (06/14/2022 2:26 PM RN ONCOLOGY): Multiple discussions with from prior teams (Dr. Barksdale and Dr. Marley) > cont supportive treatments with goal of improvement of encephalopathy and d/c to SNF; remains Full Code. - Spouse, Normal, willing to accept MRI after today's discussion. - Anticipate d/c to SNF, however not medically ready yet. Assessment & Plan (06/13/2022 4:22 PM RN ONCOLOGY): Multiple discussions with from prior teams (Dr. Barksdale and Dr. Marley) > cont supportive treatments with goal of improvement of encephalopathy and d/c to SNF; remains Full Code. - Spouse, Normal, willing to accept MRI after today's discussion. - Anticipate d/c to SNF, however not medically ready yet. Assessment & Plan (06/12/2022 6:19 PM RN ONCOLOGY): multiple discussions with , several times over [...] but no beds until late in week ([facility], [facility]). Needs private room for nebulizer use (??), as unable to use MDIs. Additional updated 06/11 with same plan for full code and no MRI. Assessment & Plan (06/11/2022 4:34 PM RN ONCOLOGY): multiple discussions with , several times over [...] but no beds until late in week ([facility], [facility]). Needs private room for nebulizer use, as unable to use MDIs. Additional updated 06/11 with same plan for full code and no MRI. Assessment & Plan (06/10/2022 3:25 PM RN ONCOLOGY): multiple discussions with , several times over [...] but no beds until late in week ([facility], [facility]). Needs private room for nebulizer use, as unable to use MDIs. Assessment & Plan (06/10/2022 9:26 AM RN ONCOLOGY): multiple discussions with , several times over [...] but no beds until late in week ([facility], [facility]). Needs private room for nebulizer use, as unable to use MDIs. Assessment & Plan (06/08/2022 4:05 PM RN ONCOLOGY): multiple discussions with , several times over [...] but no beds until late in week ([facility], [facility]). Needs private room for Covid, nebulizer use. Assessment & Plan (06/07/2022 11:04 AM RN ONCOLOGY): multiple discussions with , several times over [...] but no beds until late in week ([facility] Assessment & Plan (06/06/2022 6:38 PM RN ONCOLOGY): multiple discussions with , several times over [...] but no beds until late in week ([facility]) Assessment & Plan (06/05/2022 2:00 PM RN ONCOLOGY): - as above again d/w'd multiple times [...] but no beds until late in week ([facility]) Assessment & Plan (06/04/2022 11:09 AM RN ONCOLOGY): - as above again d/w'd 05/30 and [...] but no beds until late in week ([facility]) Assessment & Plan (06/03/2022 2:58 PM RN ONCOLOGY): - as above again d/miod 05/30 and she reiterated similar goals as to Dr. Marley's note from 05/29 > cont supportive treatments with goal of improvement of encephalopathy and d/c to SNF; remains FC; does not want to pursue MRI for now at least - denied at [facility]; anticipate d/c to SNF next week if stable, has accepting facility but no beds until late in week ([facility]) Assessment & Plan (06/02/2022 2:26 PM RN ONCOLOGY): - as above again d/miod 05/30 and she reiterated similar goals as to Dr. Marley's note from 05/29 > cont supportive treatments with goal of improvement of encephalopathy and d/c to SNF; remains FC; does not want to pursue MRI for now at least Assessment & Plan (06/01/2022 2:18 PM RN ONCOLOGY): - as above again d/wYamilkad 05/30 and she reiterated similar goals as to Dr. Marley's note from 05/29 > cont supportive treatments with goal of improvement of encephalopathy and d/c to SNF; remains FC; does not want to pursue MRI for now at least Assessment & Plan (05/31/2022 2:57 PM RN ONCOLOGY): - as above again d/wYamilkad 05/30 and she reiterated similar goals as to Dr. Marley's note from 05/29 > cont supportive treatments with goal of improvement of encephalopathy and d/c to SNF; remains FC; does not want to pursue MRI for now at least Assessment & Plan (05/30/2022 2:03 PM RN ONCOLOGY): - as above again d/miod and she reiterated similar goals as to Dr. Marley's note from 05/29 > cont supportive treatments with goal of improvement of encephalopathy and d/c to SNF; remains FC; does not want to pursue MRI for now at least Assessment & Plan (05/29/2022 3:14 PM RN ONCOLOGY): Ongoing discussions with patient's that I am [...] Code Assessment & Plan (05/28/2022 1:54 PM RN ONCOLOGY): Discussed with patient's yesterday and today that [...] discussions. Assessment & Plan (05/27/2022 3:55 PM RN ONCOLOGY): Discussed with patient's yesterday and today that [...] exams. - 07/05 placed in L shoe 2/ c/f foot drop - Has accepting facility, [...] & son regarding options. Decline home with [facility] & private duty, agreeable to pursing chcf SNF at [place]. [place] requests SNF with therapy . Ongoing CM//SW discussions without decision on facility, ongoing encouragement. Reiterated time may allow brain to heal, discussed benefits of set routine in managing behaviors social security benefits interviewer. Palliative care consulted 06/22 & appreciated. Discussed [...] [facility] & private duty, agreeable to pursing chcf SNF at [place]. [place] requests SNF with therapy . Ongoing CM//SW discussions without decision on facility, ongoing encouragement. Reiterated time may allow brain to heal, discussed benefits of set routine in managing behaviors social security benefits interviewer. Palliative care consulted 06/22 & appreciated. Discussed above at length with son 06/24 at bedside. Plan family meeting once MRI results obtained. Plan chcf SNF at [place]. List provided by CM. Await family decision. Assessment & Plan (06/24/2022 5:02 PM RN ONCOLOGY): Likely multifactorial. Initially thought to be acute [...] & son regarding options. Decline home with [facility] & private duty, agreeable to pursing chcf SNF at [place]. [place] requests SNF with therapy . Ongoing CM//SW discussions without decision on facility, ongoing encouragement. Reiterated time may allow brain to heal, discussed benefits of set routine in managing behaviors social security benefits interviewer. Palliative care consulted 06/22 & appreciated. Discussed above at length with son 06/24 at bedside. Plan family meeting once MRI results obtained. Plan SNF at [place]. List provided by CM. Await family decision. Assessment & Plan (06/23/2022 3:47 PM RN ONCOLOGY): Likely multifactorial. Initially thought to be acute [...] discussions with regarding options of home with [facility] & private duty vs [facility] SNF at [place]. [place] requests SNF with therapy . Ongoing CM//SW discussions without decision. Palliative care consulted 06/22. Anticipate son to arrive 06/24. Plan family meeting once MRI results obtained. Assessment & Plan (06/22/2022 4:09 PM RN ONCOLOGY): Likely multifactorial. Thought to be acute delirium [...] discussions with regarding options of home with [facility] & private duty vs [facility] SNF at [place]. [place] requests SNF with therapy . Ongoing CM//SW discussions without decision. Palliative care consulted 06/22. Plan family meeting once MRI results obtained. Assessment & Plan (06/21/2022 3:22 PM RN ONCOLOGY): Likely multifactorial. Thought to be acute delirium [...] rehab due to encephalopathy, plan home with [facility] vs [facility] SNF at [place]. Ongoing CM//SW discussions for dispo planning. Will attempt family meeting once MRI results obtained. Assessment & Plan (06/20/2022 6:08 PM RN ONCOLOGY): Likely multifactorial. Thought to be acute delirium [...] restraints). Assessment & Plan (06/16/2022 11:57 AM RN ONCOLOGY): Likely multifactorial. Thought to be acute delirium [...] oxycodone Assessment & Plan (06/15/2022 1:22 PM RN ONCOLOGY): Likely multifactorial. Thought to be acute delirium [...] precautions. Assessment & Plan (06/14/2022 2:26 PM RN ONCOLOGY): Likely multifactorial. Thought to be acute delirium [...] PEG tube for feeding, seen by speech 2/14 NPO. Advanced to dysphagia 1 diet with nectar thick liquids, poor tolerance and resumed NPO status. -Continue Zoloft to 50 mg -Discontinue Seroquel -Scheduling tylenol q6h for its benefit with acute agitation. -Not medically ready to discharge. -Continue aspiration precautions. Assessment & Plan (06/13/2022 4:10 PM RN ONCOLOGY): Likely multifactorial. Thought to be acute delirium [...] PEG tube for feeding, seen by speech 2/14 NPO. Advanced to dysphagia 1 diet with nectar thick liquids, poor tolerance and resumed NPO status. -Continue Zoloft to 50 mg -Discontinue Seroquel -Scheduling tylenol q6h for its benefit with acute agitation. -Not medically ready to discharge. -Continue aspiration precautions. Assessment & Plan (06/12/2022 6:16 PM RN ONCOLOGY): Likely multifactorial ISO initial delirium and toxic-metabolic [...] 06/12 Assessment & Plan (06/11/2022 4:30 PM RN ONCOLOGY): Likely multifactorial ISO initial delirium and toxic-metabolic [...] available. Assessment & Plan (06/10/2022 3:21 PM RN ONCOLOGY): 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 [...] available. Assessment & Plan (06/10/2022 9:22 AM RN ONCOLOGY): 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 [...] ADAT. Assessment & Plan (06/08/2022 4:00 PM RN ONCOLOGY): 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 [...] goals/adequacy. Assessment & Plan (06/07/2022 10:58 AM RN ONCOLOGY): 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 [...] -PEG tube for feeding, seen by speech 214 still recommend NPO - decreased Zoloft to [...] seroquel) Assessment & Plan (06/06/2022 6:37 PM RN ONCOLOGY): 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 [...] status. Assessment & Plan (06/05/2022 1:56 PM RN ONCOLOGY): - Likely multifactorial ISO delirium and toxic-metabolic [...] 05/28) Assessment & Plan (06/04/2022 10:59 AM RN ONCOLOGY): - Likely multifactorial ISO delirium and toxic-metabolic [...] 05/28) Assessment & Plan (06/03/2022 2:55 PM RN ONCOLOGY): - Likely multifactorial ISO delirium and toxic-metabolic [...] -PEG tube for feeding, seen by speech 14 still recommend NPO - decreased Zoloft to 50 mg at 's request - May be developing new baseline, or may be very slow to recover from this prolonged delirium/hospitalization - cont nightly Seroquel (started 05/28) Assessment & Plan (06/02/2022 2:24 PM RN ONCOLOGY): - Likely multifactorial ISO delirium and toxic-metabolic [...] 05/28) Assessment & Plan (06/01/2022 2:17 PM RN ONCOLOGY): - Likely multifactorial ISO delirium and toxic-metabolic [...] 05/28) Assessment & Plan (05/31/2022 2:55 PM RN ONCOLOGY): - Likely multifactorial ISO delirium and toxic-metabolic [...] 05/28) Assessment & Plan (05/30/2022 1:58 PM RN ONCOLOGY): - Likely multifactorial ISO delirium and toxic-metabolic [...] 05/28) Assessment & Plan (05/29/2022 3:12 PM RN ONCOLOGY): 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 [...] 05/28) Assessment & Plan (05/28/2022 1:53 PM RN ONCOLOGY): 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 [...] anesthesia, and brain MRI seems unlikely to [employer]. -Recent ammonia, tsh, lactate, HIV, ABG are [...] [email or web address] Assessment & Plan (05/27/2022 3:51 PM RN ONCOLOGY): 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 [...] anesthesia, and brain MRI seems unlikely to [employer]. -Recent ammonia, tsh, lactate, HIV, ABG are negative or normal -continue management of hypernatremia (now resolved) and hypercalcemia -PEG tube for feeding -appreciate neurology recommendations -May be developing new baseline, or may be very slow to recover from this prolonged delirium/hospitalization; seemed slightly improved this am Assessment & Plan (05/26/2022 1:25 PM RN ONCOLOGY): 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 [...] (04/03/2022): Added automatically from request for surgery [id number] Assessment & Plan (06/17/2022 5:35 PM RN ONCOLOGY): In setting of shock, PNA, pneumothorax, and AMS in post-op setting. Tracheostomy placed in ICU and decannulated 05/13, did well on 2L, weaned to RA. Remains stable. Small anterior cervical os with tiny air leak, occlusion dressing placed. Pt unable to stent when speaking due to encephalopathy. Assessment & Plan (06/16/2022 11:56 AM RN ONCOLOGY): In setting of shock, PNA, pneumothorax, and AMS in post-op setting. Tracheostomy placed in ICU and decannulated 05/13, did well on 2L, weaned to RA. Remains stable. Small anterior cervical os with tiny air leak, occlusion dressing placed. Pt unable to stent when speaking due to encephalopathy. Assessment & Plan (06/15/2022 1:20 PM RN ONCOLOGY): In setting of shock, PNA, pneumothorax, and AMS in post-op setting. Tracheostomy placed in ICU and decannulated 05/13, did well on 2L, weaned to RA. Remains stable. Small anterior cervical os with tiny air leak, occlusion dressing placed. Pt unable to stent when speaking due to encephalopathy. Assessment & Plan (06/14/2022 2:20 PM RN ONCOLOGY): In setting of shock, PNA, pneumothorax, and AMS in post-op setting. Tracheostomy placed in ICU and decannulated 05/13, did well on 2L, weaned to RA. Remains stable. Small anterior cervical os with tiny air leak, occlusion dressing placed. Pt unable to stent when speaking due to encephalopathy. Assessment & Plan (06/13/2022 3:58 PM RN ONCOLOGY): In setting of shock, PNA, pneumothorax, and AMS in post-op setting. Tracheostomy placed in ICU and decannulated 05/13, did well on 2L, weaned to RA. Remains stable. Small anterior cervical os with tiny air leak, occlusion dressing placed. Pt unable to stent when speaking due to encephalopathy. Assessment & Plan (06/12/2022 6:20 PM RN ONCOLOGY): In setting of shock, PNA, pneumothorax, and AMS in post-op setting. Tracheostomy placed in ICU and decannulated 05/13, now doing well on 2L, weaned to RA. Remains stable. Small anterior cervical os with tiny air leak, occlusion dressing placed. Pt unable to stent when speaking due to encephalopathy. Assessment & Plan (06/10/2022 3:30 PM RN ONCOLOGY): In setting of shock, PNA, pneumothorax, and AMS in post-op setting. Tracheostomy placed in ICU and decannulated 05/13, now doing well on 2L, weaned to RA. Remains stable. Small anterior cervical os with tiny air leak, occlusion dressing placed. Pt unable to stent when speaking due to encephalopathy. Assessment & Plan (06/10/2022 9:27 AM RN ONCOLOGY): In setting of shock, PNA, pneumothorax, and AMS in post-op setting. Tracheostomy placed in ICU and decannulated 05/13, now doing well on 2L, wean to RA Assessment & Plan (06/08/2022 4:11 PM RN ONCOLOGY): In setting of shock, PNA, pneumothorax, and AMS in post-op setting. Tracheostomy placed in ICU and decannulated 05/13, now doing well on 2L, wean to RA Assessment & Plan (05/30/2022 2:04 PM RN ONCOLOGY): - In setting of shock, PNA, pneumothorax, and AMS in post-op setting. Tracheostomy placed in ICU and decannulated 05/13, now doing well on RA Assessment & Plan (05/29/2022 3:13 PM RN ONCOLOGY): - In setting of shock, PNA, pneumothorax, and AMS in post-op setting. Tracheostomy placed in ICU and decannulated 05/13, now doing well on RA Assessment & Plan (05/28/2022 1:53 PM RN ONCOLOGY): - In setting of shock, PNA, pneumothorax, and AMS in post-op setting. Tracheostomy placed in ICU and decannulated 05/13, now doing well on RA Assessment & Plan (05/27/2022 3:53 PM RN ONCOLOGY): - In setting of shock, PNA, pneumothorax, and AMS in post-op setting. Tracheostomy placed in ICU and decannulated 05/13, now doing well on RA Assessment & Plan (05/25/2022 3:17 PM RN ONCOLOGY): - In setting of shock, PNA, pneumothorax, and AMS in post-op setting. Tracheostomy placed in ICU and decannulated 05/13, now doing well on RA Assessment & Plan (04/05/2022 12:16 PM RN ONCOLOGY): Ravinder Chapman is a 76 y.o. male with a PMHx of cervical myelopathy, COPD/AMAYA (CPAP at home), and obesity initially admitted to the [facility] spine floor s/p C3-7 ACDF and C3-7 [...] saturation. Assessment & Plan (04/05/2021 5:48 PM RN ONCOLOGY): Patient reports no significant vertigo, but loses [...] 07/19/2020 Assessment & Plan (05/06/2020 12:58 PM RN ONCOLOGY): D- dimer is 815. Slightly elevated as age adjusted normal value for this patient is 730. Possibly secondary to current inflammatory process given acute colitis. Do not suspect PE or DVT. Colitis 05/05/2020 07/19/2020 Assessment & Plan (05/06/2020 12:54 PM RN ONCOLOGY): Presented with abdominalo pain X 2 days. [...] 09/22/2019 Assessment & Plan (03/04/2019 2:55 PM RN ONCOLOGY): Family hx of breast ca. Will order [...] weight-bearing; Assessment & Plan (04/29/2021 11:06 AM RN ONCOLOGY): Stable, patient has been working on weight [...] 01/14/2018 Assessment & Plan (04/10/2017 9:35 AM RN ONCOLOGY): Will treat with omnicef. Overall he's improved. [...] (07/15/2022 10:46 AM CDT): Severe GIN/ATN requiring DYE AUTOMATION OPERATOR in setting of critical illness. Making reasonable amount of urine, creatinine stabilized off dialysis. Tunneled line removed 05/25. Cr appears to have improved to 1.2-1.3. GIN resolved. 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 -Continue to avoid nephrotoxins - encourage PO intake Assessment & Plan (06/26/2022 5:10 PM CDT): Severe GIN/ATN requiring DYE AUTOMATION OPERATOR in setting of critical illness. Making reasonable amount of urine, creatinine stabilized off dialysis. Tunneled line removed 05/25. Cr appears to be plateaued <2. GIN resolved. 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 -Continue to avoid nephrotoxins -Cont intermittent IVF as needed for hypernatremia, as TF FW flushes doesn't seem to help as much, but further advanced. Lead Welder reconsulted to address volume of flushes, water needs. -Volume status on exam appears good. Tx hypercalcemia as elsewhere, iCr 1.90 with holding of TF for recurrent vomiting. Assessment & Plan (06/25/2022 10:19 AM CDT): Severe GIN/ATN requiring DYE AUTOMATION OPERATOR in setting of critical illness. Making reasonable amount of urine, creatinine stabilized off dialysis. Tunneled line removed 05/25. Cr appears to be plateaued <2. GIN resolved. 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 -Continue to avoid nephrotoxins -Cont intermittent IVF as needed for hypernatremia, as TF FW flushes doesn't seem to help as much, but further advanced. Lead Welder reconsulted to address volume of flushes, water needs. -Volume status on exam appears good. Tx hypercalcemia as elsewhere, improvign trend. Assessment & Plan (06/24/2022 5:03 PM RN ONCOLOGY): Severe GIN/ATN requiring DYE AUTOMATION OPERATOR in setting of critical illness. Making reasonable amount of urine, creatinine stabilized off dialysis. Tunneled line removed 05/25. Cr appears to be plateaued <2. GNI resolved. 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 -Continue to avoid nephrotoxins -Cont intermittent IVF as needed for hypernatremia, as TF FW flushes doesn't seem to help as much. Lead Welder reconsulted to address volume of flushes, water needs. -Volume status on exam appears good. Tx hypercalcemia as elsewhere. Assessment & Plan (06/23/2022 3:48 PM RN ONCOLOGY): Severe GIN/ATN requiring DYE AUTOMATION OPERATOR in setting of critical illness. Making reasonable [...] elsewhere. Assessment & Plan (06/22/2022 4:08 PM RN ONCOLOGY): Severe GIN/ATN requiring DYE AUTOMATION OPERATOR in setting of critical illness. Making reasonable amount of urine, creatinine stabilized off dialysis. Tunneled line removed 2. Cr appears to be plateaued <2. GIN resolved. 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 -Continue to avoid nephrotoxins -Cont intermittent IVF as needed for hypernatremia, as TF FW flushes doesn't seem to help as much. Tx hypercalcemia as elsewhere. Assessment & Plan (06/21/2022 3:23 PM RN ONCOLOGY): Severe GIN/ATN requiring DYE AUTOMATION OPERATOR in setting of critical illness. Making reasonable amount of urine, creatinine stabilizing off dialysis. Tunneled line removed 2. Cr appears to be plateaued <2. GIN resolved. 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 -Continue to avoid nephrotoxins -Cont intermittent D5w IV as needed for hypernatremia, as TF FW flushes doesn't seem to help as much. Assessment & Plan (06/20/2022 6:09 PM RN ONCOLOGY): Severe GIN/ATN requiring DYE AUTOMATION OPERATOR in setting of critical illness. Making reasonable amount of urine, creatinine stabilizing off dialysis. Tunneled line removed 05/25. Cr appears to be plateaued <2. GIN resolved. 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 -Continue to avoid nephrotoxins -Cont NS IV as needed for hypernatremia, -TF FW flushes doesn't seem to help as much. Assessment & Plan (06/16/2022 11:56 AM RN ONCOLOGY): Severe GIN/ATN requiring DYE AUTOMATION OPERATOR in setting of critical illness. Making reasonable amount of urine, creatinine stabilizing off dialysis. Tunneled line removed 2. Cr appears to be plateaued <2. GIN resolved. -Continue to avoid nephrotoxins Assessment & Plan (06/15/2022 1:19 PM RN ONCOLOGY): Severe GIN/ATN requiring DYE AUTOMATION OPERATOR in setting of critical illness. Making reasonable amount of urine, creatinine stabilizing off dialysis. Tunneled line removed 2/9. Cr appears to be plateaued <2. GIN resolved. -Continue to avoid nephrotoxins Assessment & Plan (06/14/2022 2:19 PM RN ONCOLOGY): Severe GIN/ATN requiring DYE AUTOMATION OPERATOR in setting of critical illness. Making reasonable amount of urine, creatinine stabilizing off dialysis. Tunneled line removed 29. Cr appears to be plateaued <2. GIN resolved. -Continue to avoid nephrotoxins Assessment & Plan (06/13/2022 3:57 PM RN ONCOLOGY): Severe GIN/ATN requiring DYE AUTOMATION OPERATOR in setting of critical illness. Making reasonable amount of urine, creatinine stabilizing off dialysis. Tunneled line removed 2. Cr appears to be plateaued <2. GIN resolved. -Continue to avoid nephrotoxins Assessment & Plan (06/12/2022 6:17 PM RN ONCOLOGY): Severe GIN/ATN requiring DYE AUTOMATION OPERATOR in setting of critical illness. Making reasonable [...] PCP Assessment & Plan (06/11/2022 4:33 PM RN ONCOLOGY): Severe GIN/ATN requiring DYE AUTOMATION OPERATOR in setting of critical illness. Making reasonable [...] PCP Assessment & Plan (06/10/2022 3:23 PM RN ONCOLOGY): Severe GIN/ATN requiring DYE AUTOMATION OPERATOR in setting of critical illness. Making reasonable [...] exams. Assessment & Plan (06/10/2022 9:23 AM RN ONCOLOGY): Severe GIN/ATN requiring DYE AUTOMATION OPERATOR in setting of critical illness. Making reasonable [...] exams. Assessment & Plan (06/08/2022 4:02 PM RN ONCOLOGY): Severe GIN/ATN requiring DYE AUTOMATION OPERATOR in setting of critical illness. Making reasonable [...] exams. Assessment & Plan (06/07/2022 11:00 AM RN ONCOLOGY): Severe GIN/ATN requiring DYE AUTOMATION OPERATOR in setting of critical illness. Making reasonable [...] exams. Assessment & Plan (06/06/2022 6:29 PM RN ONCOLOGY): - Severe GIN/ATN requiring DYE AUTOMATION OPERATOR in setting of critical illness. Making reasonable [...] exams. Assessment & Plan (06/05/2022 2:00 PM RN ONCOLOGY): - Severe GIN/ATN requiring DYE AUTOMATION OPERATOR in setting of critical illness. Making reasonable amount of urine, creatinine stabilizing off dialysis - tunneled line removed 2/9 - cont to avoid nephrotoxins - Cr appears to be leveling off around 2 thus far Assessment & Plan (06/04/2022 11:03 AM RN ONCOLOGY): - Severe GIN/ATN requiring DYE AUTOMATION OPERATOR in setting of critical illness. Making reasonable amount of urine, creatinine stabilizing off dialysis - tunneled line removed 2/9 - cont to avoid nephrotoxins Assessment & Plan (06/03/2022 2:56 PM RN ONCOLOGY): - Severe GIN/ATN requiring DYE AUTOMATION OPERATOR in setting of critical illness. Making reasonable amount of urine, creatinine stabilizing off dialysis - tunneled line removed 2/9 - cont to avoid nephrotoxins Assessment & Plan (06/02/2022 2:25 PM RN ONCOLOGY): - Severe GIN/ATN requiring DYE AUTOMATION OPERATOR in setting of critical illness. Making reasonable amount of urine, creatinine stabilizing off dialysis - tunneled line removed 2/9 - cont to avoid nephrotoxins Assessment & Plan (06/01/2022 2:18 PM RN ONCOLOGY): - Severe GIN/ATN requiring DYE AUTOMATION OPERATOR in setting of critical illness. Making reasonable amount of urine, creatinine stabilizing off dialysis - tunneled line removed 2/9 - cont to avoid nephrotoxins Assessment & Plan (05/31/2022 2:57 PM RN ONCOLOGY): - Severe GIN/ATN requiring DYE AUTOMATION OPERATOR in setting of critical illness. Making reasonable amount of urine, creatinine stabilizing off dialysis - tunneled line removed 2/9 - cont to avoid nephrotoxins Assessment & Plan (05/30/2022 2:02 PM RN ONCOLOGY): - Severe GIN/ATN requiring DYE AUTOMATION OPERATOR in setting of critical illness. Making reasonable amount of urine, creatinine stabilizing off dialysis - tunneled line removed 2/9 - cont to avoid nephrotoxins Assessment & Plan (05/29/2022 3:13 PM RN ONCOLOGY): - Severe GIN/ATN requiring DYE AUTOMATION OPERATOR in setting of critical illness. Making good urine, creatinine stable off dialysis - tunneled line removed 2/9 - cont to avoid nephrotoxins Assessment & Plan (05/28/2022 1:53 PM RN ONCOLOGY): - Severe GIN/ATN requiring DYE AUTOMATION OPERATOR in setting of critical illness. Making good urine, creatinine stable off dialysis - tunneled line removed 2/9 - cont to avoid nephrotoxins Assessment & Plan (05/27/2022 3:52 PM RN ONCOLOGY): - Severe GIN/ATN requiring DYE AUTOMATION OPERATOR in setting of critical illness. Making good urine, creatinine slowly improving off dialysis - tunneled line removed 2/9 - cont to avoid nephrotoxins Assessment & Plan (05/26/2022 1:17 PM RN ONCOLOGY): - Severe GIN/ATN requiring DYE AUTOMATION OPERATOR in setting of critical illness. Making good urine, creatinine has stabilized off dialysis - tunneled line removed 2/9 - cont to avoid nephrotoxins Encounters Date Type Department Care Team Description 07/09/2024 9:55 AM CDT Lab [facility] [address] [place] [address] 06/19/2024 Results Follow-Up [address] [place] [address] Venita Granda DNP 06/18/2024 10:35 AM RN ONCOLOGY Lab [facility] [address] [place] [address] Age-related osteoporosis without current pathological fracture; Vitamin D deficiency 06/17/2024 1:40 PM RN ONCOLOGY Office Visit [address] [place] [phone] Venita Granda DNP Age-related osteoporosis without current pathological fracture (Primary Dx); Vitamin D deficiency 06/17/2024 1:10 PM RN ONCOLOGY Clinical Support [address] [place] [phone] Age-related osteoporosis without current pathological fracture 06/17/[address] [place] [phone] Venita Granda DNP 06/02/2024 Telephone [facility] [address] [address] Nick Almanzar MD Reschedule 05/20/2024 Orders Only [address] [place] [address] [place] [address] Venita Granda DNP Age-related osteoporosis without current pathological fracture (Primary Dx) from Last 3 Months Immunizations Immunization Administration Dates Next Due Influenza, [...] 01/06/2019 Pneumococcal Polysaccharide PPV23 11/30/2019 Tdap 03/12/2018 Surgical History Surgery Date Site/Laterality Comments CARPAL TUNNEL RELEASE 04/16/2006 - 04/15/2007 HEMORROIDECTOMY 04/16/1975 - 04/15/1976 CARDIAC CATHETERIZATION 04/16/2001 - 04/15/2002 cardiac cath FRACTURE SURGERY 04/16/1961 - 04/15/1962 compound fracture left arm COLONOSCOPY 03/28/2021, 03/2017 CATARACT EXTRACTION 04/16/2018 - 04/15/2019 TUNNELED LINE PLACEMENT > 5 YEARS 05/02/2022 N/A REMOVE TUNNELED LINE 05/25/2022 Left G TO GJ-TUBE REPLACEMENT 06/21/2022 N/A OTHER SURGICAL HISTORY 04/16/2021 - 04/15/2022 spinal surgery OTHER SURGICAL HISTORY 03/16/2022 - 04/15/2022 small intestinal surgery FLUORO GUIDED ASPIRATION TMJ LEFT 02/13/2024 Left Medical History Medical History Date Comments Sleep apnea Asthma Chronic obstructive pulmonary disease (HCC) COPD Hypertension Hyperlipidemia Fracture compound fractur e Primary osteoarthritis of left knee 01/25/2018 BPH (benign prostatic hyperplasia) Hemorrhoids Coronary artery calcification 03/27/2019 Smoking Quit in 1996 Cataract 2019 Bilateral Pneumonia 2020 Colon polyp Depression 1985 Infection 2020 Cervical stenosis of spinal canal PONV (postoperative nausea and vomiting) x1 as teenager, none since Family History Medical History Relation Name Comments Hip replacement three times Brother Alzheimer's disease Father Memory loss Father Stroke Father Stroke; Breast cancer Mother Kim Cancer Mother Kim Hypertension Mother Kim Stroke Mother Kim Thyroid disease Mother Kim Breast cancer Other 1 Family history of Cancer, breast; Hypertension Other 2 Family history of Hypertension; Stroke Other 3 Family history of Stroke; Anesthesia problems Neg Hx Broken bones Neg Hx Hip fracture Neg Hx Kyphosis Neg Hx Osteoporosis Neg Hx Scoliosis Neg Hx Relation Name Status Comments Brother Alive Father (Age 88) Mother Kim (Age 92) Other 1 Other 2 Other 3 Social History Tobacco Use Types Packs/Day Years [...] materials from doctor or pharmacy Sometimes 10/09/2022 [facility] Utilities Answer Date Recorded In the past 12 months has th e electric, gas, oil, or water company threatened to shut off services in your [...] often do you attend chur ch or yarsanism services? More than 4 times per year 06/20/2023 Do you belong to any clubs o r organizations such as congregational groups, unions, fraternal or athletic groups, or [...] place to sleep or slept in a retirement (including now)? No 06/20/2023 Personal Safety Answer Date Recorded Have you ever been in or are you currently in a harmful physical or emotional relationship or is someone making you feel afraid or unsafe? Denies 06/16/2023 Sex and Gender Information Value Date Recorded Sex Assigned at Not on file Legal Sex Male 1:30 PM RN ONCOLOGY Gender Identity Male 02/21/2021 12:31 PM RN ONCOLOGY Sexual Orientation Straight 12/22/2020 11 :36 AM CDT Obstetrics History Last Filed Vital Signs Vital Sign Reading Time Taken Comments Blood Pressure 155/69 02/27/2024 11:30 AM RN ONCOLOGY Pulse 64 02/27/2024 11:30 AM RN ONCOLOGY Temperature 36.8 C (98.3 F) 02/13/2024 8:35 AM CDT Respiratory Rate 18 02/27/2024 11:30 AM RN ONCOLOGY Oxygen Saturation 95% 02/27/2024 11:30 AM RN ONCOLOGY Inhaled Oxygen Concentration - - Weight 92.4 kg (203 lb 9.6 oz) 06/17/2024 1:18 P M RN ONCOLOGY Height 172.7 cm (5' 8 ) 06/17/2024 1:18 PM RN ONCOLOGY Body Mass Index 30.96 06/17/2024 1:18 PM RN ONCOLOGY Plan of Treatment Health Maintenance Due Date Last Done Comments Hepatitis B Screening 1963 Zoster Vaccine (1 of 2) 1996 Covid-19 Vaccine (2023-2 5 season) 2023 12/26/2021, 12/26/2021, 08/18/2021, Additional history exists Well Visit 65+ 12/21/2023 12/20/2022, 11/16, 09/22/2020 Depression Screening 12/26/2024 12/27/2023, 06/16/2023, 06/16/2023, Additional history exists Fall Risk Assessment 02/26/2025 02/27/2024, 12/27/2023, 05/23/2023, Additional history exists DTaP/Tdap/Td Vaccine (2 - Td or Tdap) 03/12/2028 03/12/2018 Pneumococcal vaccine 65+ Completed 11/30/2019, 12/16 Hepatitis C Screening Completed 01/19/2020 Colon Cancer Screening-CT Colonography Discontinued 03/28/2021, 03/28/2021, 12/28/2015, Additional history exists Colon Cancer Screening-Colonoscopy Discontinued 03/28/2021, 03/28/2021, 12/28/2015, Additional history exists Colon Cancer Screening-DNA Stool Discontinued 03/28/2021, 03/28/2021, 12/28/2015, Additional history exists Colon Cancer Screening-FIT Discontinued 03/28, 03/28/2021, 12/28/2015, Additional history exists Colon Cancer Screening-FOBT Discontinued 03/16, 03/28/2021, 12/28/2015, Additional history exists Colon Cancer Screening-Sigmoidoscopy Discontinued 03/28/2021, 03/28/2021, 12/28/2015, Additional history exists Colorectal Cancer Screening Discontinued Influenza Vaccine Completed 01/08/2024, , 12/26/2021, Additional history exists Abdominal Aortic Aneurysm (A AA) Screen Completed 02/12/2024, 02/21/2023, 06/25/2022, Additional history exists Medical Devices Implanted Type Area Arborist Device Identifier Shelf Expiration Date Model / Serial / Lot [employer] Device Vascular Closure Femoral Artery Bioabsorbable Dual Method Vascade 6-7fr Collagen [id number] - [id number] Implanted:Qty: 1 on 06/18/2023 by Maria A Seymour MD at [facility] Right: Common Femoral Artery [employer] 02/07/2025 [id number] / / [id number] [employer] Inc Allograft Bone Putty 2.5cc 700-025 - [id number] Implanted:Qty: 1 on 03/17/2022 by Boogie Casas MD at [facility] Spine Cervical [employer] [id number] 09/13/2024 700-025 / / [id number] [employer] Screw Trelloss-C Sa 3.5x12mm [id number] - [id number] Implanted:Qty: 1 on 03/17/2022 by Boogie Casas MD at [facility] Spine Cervical [employer] [id number] 01/04/2027 [id number] / / [id number] [employer] Spacer Trelloss-C Sa [id number] 6deg [id number] - [id number] Implanted:Qty: 1 on 03/17/2022 by Boogie Casas MD at [facility] Spine Cervical [employer] [id number] 02/10/2025 [id number] / / [id number] [employer] Spacer Trelloss-C Sa [id number] 6deg [id number] - [id number] Implanted:Qty: 1 on 03/17/2022 by Boogie Casas MD at [facility] Spine Cervical [employer] [id number] 01/28/2025 [id number] / / [id number] [employer] Inqu Paste Mix Plus Stripper And Taper 10cc Bone Graft Hyaluronic Acid Poly [id number] - [id number] Implanted:Qty: 1 on 03/17/2022 by Boogie Casas MD at [facility] Spine Cervical [employer] 08/31/2022 [id number] / / [id number] [employer] Virage 3.5mm 16mm Polyaxial Spine Screw Bone Nonsterile 07.85469.009 - [id number] Implanted:Qty: 7 on 03/17/2022 by Boogie Casas MD at [facility] Spine Cervical [employer] [id number]. [id number] / / [employer] Virage 3.5mm 14mm Polyaxial Spine Screw Bone Nonsterile 07.34173.007 - [id number] Implanted:Qty: 2 on 03/17/2022 by Boogie Casas MD at [facility] Spine Cervical [employer] [id number]. [id number] / / [employer] Virage 4mm 20mm Self Tap Polyaxial Spine Screw Bone Titanium Gold 07.19736.056 - [id number] Implanted:Qty: 1 on 03/17/2022 by Boogie Casas MD at [facility] Spine Cervical [employer] [id number]. [id number] / / Prasanna Straight Cocr 3.5mm X 400mm - [id number] Implanted:Qty: 1 on 03/17/2022 by Boogie Casas MD at [facility] Spine Cervical [employer] [id number]. [id number] / / [employer] Virage Closure Top Lid Sterilization Nonsterile Disposable Screw 07.46154.001 - [id number] Implanted:Qty: 10 on 03/17/2022 by Boogie Casas MD at [facility] Spine Cervical [employer] [id number]. [id number] / / [employer] Canpac Nonpurge Frozen Graft 50cc Bone [id number] - [id number] Implanted:Qty: 1 on 03/17/2022 by Boogie Casas MD at [facility] Spine Cervical [employer] 06/23/2026 [id number] / / [id number] [employer] Screw Trelloss-C Sa 3.5x14mm [id number] - [id number] Implanted:Qty: 1 on 03/17/2022 by Boogie Casas MD at [facility] Spine Cervical [employer] [id number] 03/01/2025 [id number] / / [id number] Procedures Procedure Name Priority Date/Time Associated Diagnosis [...] D 25 HYDROXY Routine 06/18/2024 10:33 AM RN ONCOLOGY Age-related osteoporosis without current pathological fracture Vitamin D deficiency DEXA TBS AXIAL SKELETON BONE DENSITY 1 OR MORE SITES Schedule Routine, Read Routine (OP Routine) 06/17/2024 12:57 PM RN ONCOLOGY Age-related osteoporosis without current pathological fracture US ABDOMINAL AORTIC ANEURYSM SCREENING Schedule Routine, Read Routine (OP Routine) 02/12/2024 9:07 AM CDT Screening for abdominal aortic aneurysm COLONOSCOPY 03/28/2021 7:23 AM RN ONCOLOGY HEPATITIS C ANTIBODY Routine 01/19/2020 2:11 PM [...] was last reviewed 2021. Testing performed by: [address] [address] Blood 07/09/2024 10:0 4 AM CDT 07/09/2024 1:21 PM CDT Sanford Mcduffie MD LAB BLOOD ORDERABLES Final R esult [facility]ONA [facility]Y ([place]) [address] [facility] Department of Laboratories [place], [place] [id number] * Protein / creatinine ratio, urine, random (07/09/2024 10:04 AM CDT) Protein, ur, quant 16.4 mg/dL Comment: Interpretive Data No reference range established. Current interpretive data was last revised 2018. Testing performed by: [address] [address] Creatinine Ur 182.8 mg/dL [facility]ONA [facility] ([facility]) Comment: Interpretive Data No reference range established. Current interpretive data was last revised 2018. Testing performed by: [address] [address] Protein/creatinin e ratio 89.7 0.0 - 180.0 mg/g CR [facility] ([place]) Comment:Testing performed by : [address] [address] Urine 07/09/2024 10:0 4 AM CDT 07/09/2024 10:05 AM CDT Sanford Mcduffie MD LAB URINE ORDERABLES Final R esult Performing Organization Address City/[facility]/ZIP Co de Phone Number SHONA FRY ([place]) 1 [facility] [place] [address] * Vitamin D 25 hydroxy (07/09/2024 10:04 AM CDT) Pathologist [facility] Vitamin D 25-OH 72 30 - 80 ng/mL Comment:Testing performed by : [address], [address] Blood 07/09/2024 10:0 4 AM CDT 07/09/2024 10:04 AM CDT Sanford Mcduffie MD LAB BLOOD ORDERABLES Final R esult Performing Organization Address City/[facility] Co de Phone Number SHONA FRY ([place]) 1 [place] [address] * (ABNORMAL) CBC without differential (07/09/2024 10:04 AM CDT) [facility] WBC 7.6 3.8 - 9.9 K/cumm Comment:Testing performed by : [facility], [address] [place] [address], [address] Hgb 12.3(L) 13.0 - 17.5 g/dL [facility] ([place]) Comment:Testing performed by : [address], [address] Hct 40.4 38.9 - 50.3 % [facility] ([place]) Comment:Testing performed by : [address], [address] Plt 173 150 - 400 K/cumm [facility] ([place]) Comment:Testing performed by : [address], [address] MPV 11.8 9.1 - 12.3 fL [facility] ([place]) Comment:Testing performed by : [facility], [address] [place] [address], [address] RBC 4.62 4.30 - 5.80 M/cumm [facility] ([place]) Comment:Testing performed by : [facility], [address] [place] [address], [address] MCV 87.4 81.3 - 96.4 fL [facility] ([place]) Comment:Testing performed by : [facility], [address] [place] [address], [address] MCH 26.6(L) 27.1 - 33.3 pg [facility] ([place]) Comment:Testing performed by : [facility], [address] [place] [address], [address] MCHC 30.4(L) 32.3 - 35.7 g/dL [facility] ([place]) Comment:Testing performed by : [address], [address] RDW CV 15.7(H) 11.1 - 14.9 % [facility] ([place]) Comment:Testing performed by : [address], [address] RDW SD 49.9(H) 35.7 - 48.1 fL [facility] ([place]) Comment:Testing performed by : [address], [address] NRBC abs 0.00 0.00 - 0.01 K/cumm [facility] ([place]) Comment:Testing performed by : [address], [address] Blood 07/09/2024 10:0 4 AM CDT 07/09/2024 10:04 AM CDT us Sanford Mcduffie MD LAB BLOOD ORDERABLES Final R esult SHONA FRY ([place]) [address] [facility] Department [place] [address] * Uric acid (07/09/2024 10:04 AM CDT) Uric acid 5.0 3.0 - 8.0 mg/dL Comment:Testing performed by : [address] [address] Blood 07/09/2024 10:0 4 AM CDT 07/09/2024 10:05 AM CDT Sanford Mcduffie MD LAB BLOOD ORDERABLES Final R esult Performing Organization Address [facility]/ZIP Co de Phone Number SHONA FRY ([place]) 1 [facility] [place] [address] * PTH (07/09/2024 10:04 AM CDT) PTH 65 15 - 65 pg/mL Comment:Testing performed by : [address], [address] Blood 07/09/2024 10:0 4 AM CDT 07/09/2024 10:05 AM CDT Sanford Mcduffie MD LAB BLOOD ORDERABLES Final R esult Performing Organization Address [facility] Co de Phone Number SHONA FRY ([place]) 1 [place] [address] * (ABNORMAL) Renal function panel (07/09/2024 10:04 AM CDT) Sodium 145 135 - 145 mmol/L Comment:Testing performed by : [facility], [address] [place] [address]., [address] Potassium, pl 4.2 3.3 - 4.9 mmol/L [facility] ([place]) Comment:Testing performed by : [facility], [address] [place] [address]., [address] Chloride 111(H) 97 - 110 mmol/L [facility] ([place]) Comment:Testing performed by : [address] [address] CO2 26 22 - 32 mmol/L [facility] ([place]) Comment:Testing performed by : [address], [address] Anion gap 8 2 - 15 mmol/L [facility] ([place]) Comment:Testing performed by : [facility], [address] [place] [address]., [address] BUN 37(H) 6 - 25 mg/dL [facility] ([place]) Comment:Testing performed by : [facility], [address] [place] [address]., [address] Creatinine 1.76(H) 0.80 - 1.30 mg/dL [facility] ([place]) Comment:Testing performed by : [facility], [address] [place] [address], [address] Glucose 98 70 - 199 mg/dL CERNER [...] was last revised 2022. Testing performed by: [facility], [address] [place] [address]., [address] Calcium 10.0 8.5 - 10.3 mg/dL [facility] ([place]) Comment:Testing performed by : [facility], [address] [place] [address]., [address] Phosphorus, pl 3.7 2.3 - 4.5 mg/dL [facility] ([place]) Comment:Testing performed by : [address] [address] Albumin 3.9 3.5 - 5.0 g/dL [facility] ([place]) Comment:Testing performed by : [address] [address] Blood 07/09/2024 10:0 4 AM CDT 07/09/2024 10:05 AM CDT us Sanford Mcduffie MD LAB BLOOD ORDERABLES Final R esult SHONA FRY ([place]) [address] [facility] Department [place] [address] * Vitamin D 25 hydroxy (06/18/2024 10:33 AM RN ONCOLOGY) Vitamin D 25-OH 63 30 - 80 ng/mL Comment:Testing performed by : [facility], [address] [place] [address], [place]., [address] Blood 06/18/2024 10:3 3 AM RN ONCOLOGY 06/18/2024 6:40 PM RN ONCOLOGY us Venita Granda DNP LAB BLOOD ORDERABLES Final Resu lt [facility] ([place]) [address] [facility] Department [place] [address] * Dexa TBS Axial Skeleton Bone Density 1 or more sites (06/17/2024 12:57 PM RN ONCOLOGY) Anatomical Region Laterality Modality Wrist, Body N/A Radiographic Jenna ging Narrative 06/17/2024 1:15 PM RN ONCOLOGY Patient Name: Ravinder Chapman Date of : 1945 Date of scan: 06/17/2024 Bone mineral density was performed on a Hologic Discovery Densitometer. Based on machine cross-calibration and [...] by the International Society of Clinical Densitometry. [id number] Venita Granda DNP IMG DXA PROCEDURES Final Result * US Abdominal [...] by: Lani Simmons M.D. Reymundo Bloom MD IMG US PROCEDURES Final Result * COLONOSCOPY (03/28/2021 7:23 AM RN ONCOLOGY) Anatomical Region Laterality Modality Other Narrative Procedure Note Roe Dior MD - 03/28/2021 7:23 AM CST [facility] Patient Name: Ravinder Chapman Procedure Date: 03/28/2021 7:23 AM Date of : 1945 Admit Type: Outpatient Age: 75 Gender: Male Attending MD: Roe Dior M.D. Room: [facility] ROOM 2 Note Status: Finalized Patient [...] scope was passed under direct vision. TheColonoscope [id number] was introduced through the anus and advanced [...] 7:23 AM Procedure Code(s): --- Professional --- 34835, Colonoscopy, flexible; with removal of tumor(s), polyp(s), or other lesion(s) by snare technique Diagnosis Code(s): --- Professional --- K57.30, Diverticulosis of large intestine without perforation orabscess without bleeding K63.5, Polyp of colon K64.9, Unspecified hemorrhoids Z86.010, Personal history of colonic polyps CPT copyright 2019 [employer]. All rights reserved. The codes documented in this report are preliminary and upon certified medical records coder reviewmay be revised to meet current compliance requirements. Recognized by the [employer] for promoting quality [...] - GENERAL OR DERABLES Final Result SHONA [id number] [address] Department [place] [address] from Last 3 Months or Most Recently Relevant to Health Maintenance Insurance AET MEDICARE [facility] MEDICARE [facility] MEDICARE [facility] MEDICARE Advance Directives For more information, please contact: [phone] Documents on File Type Date Recorded Patient Trommel Tender Expl anation ADVANCE DIRECTIVE 01/03/2022 2:56 PM POWER OF EQUAL OPPORTUNITY COUNSELOR-MEDICAL * Full Code (Latest Code Status on [...] 6:30 PM 05/24/2020 4:53 PM Care Teams Metal Technician Relationship Specialty Start Date End Date Nick Almanzar MD [address] [place] [address] PCP - General Family Medicine 12/23/20 Luke Santiago MD Consulting Physician Pulmonary Disease 05/15/20 [place] [address] [facility] [address] [place] [address] Consulting Physician Pulmonary Disease 11/02/20 Jony Wilcox MD [address] [place] [address] [address] [place] [address] Consulting Physician Nephrology 06/19/23 Maria A Seymour MD [address] [facility] [address], [place] [id number] Consulting Physician Interventional Cardiology 06/19/23 Alex Urbina MD [address] [facility] [address] [place] [address] Consulting Physician Cardiology 06/19/23 [place] [address] [address] Nurse Practitioner Copy Chaser 02/27/24
[2024-08-02 11:14] LABS: Basophils Percent Auto 0.1 % (0.2-1.2); Eosinophils Absolute Auto 0.2 K/mm3 (0-0.3); Eosinophils Percent Auto 2.1 % (0-4.4); Hematocrit 41.1 % (42.0-52.0); Hemoglobin 12.3 g/dL (14.0-18.0); Immature Granulocyte Absolute 0.02 K/mm3 (0.00-0.031); Immature Granulocyte Percent A 0.3 % (0-0.5); Lymphocytes Absolute Auto 1.17 K/mm3 (0.9-3.2); Lymphocytes Percent Auto 14.7 % (18.3-44.2); Mean Corpuscular HGB Conc 29.9 g/dl (32-36); Mean Corpuscular Hemoglobin 26.7 pg (26-34); Mean Corpuscular Volume 89.3 fl (80-100); Mean Platelet Volume 10.4 fl (7.4-10.4); Monocytes Absolute Auto 0.7 K/mm3 (0.1-0.6); Monocytes Percent Auto 8.7 % (2.6-8.5); Neutrophils Absolute Auto 5.9 K/mm3 (1.3-6.7); Neutrophils Percent Auto 74.1 % (45.5-73.1); Platelet Count Result 129 k/mm3 (150-375); Red Cell Distribution Width 16.2 % (11.5-14.5)
--- NOTE | 2024-08-02 11:22 | PC.NURSE ---
Bedside report provided provided by ABRAHAM Ruiz. Pt. has no requests at this time. This RN to assume care as primary, RN.
[2024-08-02 11:33] LABS: Hypochromasia 1+; Platelet Estimate Slightly Decreased (Adequate); Schistocytes None Seen
[2024-08-02 11:43] LABS: Alanine Aminotransferase 14 U/L (6-50); Albumin Level 3.9 g/dL (3.5-5.1); Alkaline Phosphatase 74 U/L (38-126); Anion Gap 10 mmol/L (4-12); Aspartate Amino Transferase 19 U/L (17-59); Bilirubin,Total 0.5 mg/dL (0.2-1.3); Blood Urea Nitrogen 25 mg/dL (9-20); Calcium 9.4 mg/dL (8.4-10.2); Carbon Dioxide 20 mmol/L (22-30); Chloride 112 mmol/L (98-107); Estimated CRCL calculation 39 ml/min; Estimated Glomerular Filt Rate 44; Glucose 92 mg/dL (65-110); Lipase 56 U/L (23-300); Potassium 4.4 mmol/L (3.4-5.0); Sodium 142 mmol/L (137-145)
[2024-08-02 11:57] LABS: Add Urine Microscopic? YES; Appearance Urine Clear (Clear); Bacteria Urine None Seen /hpf; Bilirubin Urine Negative (Negative); Blood Urine Negative (Negative); Color Urine Yellow (Yellow); Glucose Urine UA 3+ mg/dL (Negative); Ketones Urine Negative (Negative); Leukocyte Esterase Ur Negative LEU/UL (Negative); Nitrate Urine Negative (Negative); Protein Urine 1+ mg/dL (Negative); RBC Urine 0-2 /hpf (0-2); Specific Grav Ur 1.024 (1.001-1.035); Squamous Epithelial Cell Urine None Seen /hpf (Few); Urobilinogen Urine 0.2 mg/dL (<2.0); WBC Urine 0-5 /hpf (0-3)
--- NOTE | 2024-08-02 12:33 | PC.NURSE ---
Dr. Weller at bedside speaking with pt. and pt. visitor.
--- NOTE | 2024-08-02 12:43 | ED_ITS ---
HPI - General Adult General Chief complaint: Abdominal Pain Stated complaint: abd pain Time Seen by Provider: 08/02/24 10:56 History of Present Illness HPI narrative: 78-year-old male presents emergency department for evaluation for diffuse lower abdominal pain and issues with constipation. Patient states symptoms have been going on for the last 3 days. Patient does have a prior history of possible volvulus approximately 2 years ago that was treated at [facility]. Patient denies any current nausea or vomiting. Related Data Home Medications ?Medication ?Instructions ?Recorded ?Confirmed ?Last Taken ?Type albuterol 90 mcg/actuation aerosol 90 mcg inhalation .as needed PRN 03/25/20 07/22/24 Unknown History inhaler bronchospasm amlodipine 10 mg tablet 10 mg PO DAILY 03/25/20 07/22/24 Unknown History aspirin 81 mg capsule,delayed 81 mg PO DAILY 03/25/20 07/22/24 Unknown History release finasteride 5 mg tablet 5 mg PO DAILY 03/25/20 07/22/24 Unknown History rosuvastatin 40 mg tablet 40 mg PO DAILY 03/25/20 07/22/24 Unknown History umeclidinium 62.5 mcg-vilanterol 1 inh inhalation DAILY 03/25/20 07/22/24 Unknown History 25 mcg/actuation powdr for inhalation (Anoro Ellipta) allopurinol 100 mg tablet 100 mg PO DAILY 01/22/24 07/22/24 Unknown History calcitriol 0.25 mcg capsule 0.25 mcg PO DAILY 01/22/24 07/22/24 Unknown History carvedilol 25 mg tablet 25 mg PO Q12H 01/22/24 07/22/24 Unknown History duloxetine 30 mg capsule,delayed 30 mg PO DAILY 01/22/24 07/22/24 Unknown History release ferrous sulfate 325 mg (65 mg 325 mg PO DAILY 01/22/24 07/22/24 04/25/24 History iron) tablet,delayed release losartan 50 mg tablet 50 mg PO DAILY 01/22/24 07/22/24 Unknown History meclizine 12.5 mg tablet 12.5 mg PO TID PRN dizziness 01/22/24 07/22/24 Unknown History nitroglycerin 0.4 mg sublingual 0.4 mg sublingual Q5M PRN chest 01/22/24 07/22/24 Unknown History tablet pain omega-3 fatty acids 1,000 mg 1,000 mg PO DAILY 01/22/24 07/22/24 Unknown History capsule sertraline 25 mg tablet 25 mg PO DAILY 01/22/24 07/22/24 Unknown History Allergies Allergy/AdvReac Type Severity Reaction Status Date / Time Quinolones Allergy Mild RASH Verified 08/02/24 11:07 celecoxib Allergy Unknown Unknown Verified 08/02/24 11:07 levofloxacin Allergy Unknown Unknown Verified 08/02/24 11:07 Penicillins Allergy Unknown Unknown Verified 08/02/24 11:07 Review of Systems 2 Review of Systems: All systems reviewed & are unremarkable except as noted in HPI and below [facility] Social History Social History Smoking packs per day: 1 Smoking cigarettes per day: 20.0 Years smoked: 25 Smoking pack-years: 25.00 Smoking status: Former smoker Smoking end date: 04/16/96 Alcohol intake: never Substance use: never Do You Feel Safe in your Home?: Yes Lack of Transportation: No Lack of Food: Never True Current Housing: I Have Housing Concerned About Future Housing: No Difficulty Paying Gas/Electric Bills: No Difficulty Paying for Meds: No Currently Unemployed: No Difficulty w/ Childcare or Family Care: No Living arrangements: with family Additional living arrangements comments: Gender identity (if verbalized by the patient): Male Sexual Orientation (if Verbalized by the Patient): Straight or Heterosexual Spiritual care concerns: No Exam 2 Narrative: APPEARANCE: Well appearing, no pain, no distress, well-nourished. HEAD: normocephalic, atraumatic. EYES: PERRLA/EOMI, conjunctivae clear. NOSE: Normal no drainage EARS:TMS clear with good light reflex. THROAT: Pharynx clear, no exudate. NECK: Supple. No adenopathy, no masses. RESPIRATORY: Airway patent, respirations nonlabored. Clear to auscultation bilaterally, no rales, rhonchi, wheezing. CARDIOVASCULAR: Regular rate and rhythm without murmurs rubs or gallops. ABDOMINAL: Diffuse lower abdominal tenderness to palpation MUSCULOSKELETAL: Moves all extremities. Strength/ROM intact, No edema, No calf tenderness. NEURO: Alert. Cranial nerves II through XII intact. Good gait. Good coordination SKIN: Warm, dry. Normal Color PSYCHIATRIC: Normal affect/mood. Course Vital Signs Vital signs: Vital Signs Temperature 97.8 F 08/02/24 10:57 Pulse Rate 62 08/02/24 10:57 Respiratory Rate 20 08/02/24 10:57 Blood Pressure 177/67 H 08/02/24 10:57 Pulse Oximetry 96 08/02/24 10:57 Temperature 97.8 F 08/02/24 10:57 Pulse Rate 68 08/02/24 14:14 Respiratory Rate 16 08/02/24 14:14 Blood Pressure 143/118 H 08/02/24 14:14 Pulse Oximetry 98 08/02/24 14:14 Medical Decision Making MDM Narrative Medical decision making narrative: 78-year-old male presents emergency department for evaluation for diffuse lower abdominal pain. Patient is afebrile with no leukocytosis and hemoglobin 12.3. Patient has a creatinine of 1.54 which is similar to his baseline with no other significant acute abnormalities on his CMP UA was negative for infection. CT does show acute uncomplicated diverticulitis. Patient does have allergies to quinolones, levofloxacin and penicillins. Patient will be started on Bactrim and Flagyl. This was started in the emergency department. Patient was encouraged close follow-up with his primary care physician along with GI. Patient and family are also educated on reasons to return to the emergency department. All questions concerns were addressed. Differential Diagnosis Differential Diagnosis: Colitis, diverticulitis, appendicitis, small-bowel obstruction Vital Signs Vital Signs: Vital Signs Temperature 97.8 F 08/02/24 10:57 Pulse Rate 62 08/02/24 10:57 Respiratory Rate 20 08/02/24 10:57 Blood Pressure 177/67 H 08/02/24 10:57 Pulse Oximetry 96 08/02/24 10:57 Temperature 97.8 F 08/02/24 10:57 Pulse Rate 68 08/02/24 14:14 Respiratory Rate 16 08/02/24 14:14 Blood Pressure 143/118 H 08/02/24 14:14 Pulse Oximetry 98 08/02/24 14:14 Lab Data Lab results reviewed: Yes I reviewed the patient's lab results. 08/02/24 11:08 08/02/24 11:08 Labs: Lab Results 08/02/24 08/02/24 Range/Units 11:08 11:48 WBC 8.0 (4.5-10.0) K/mm3 RBC 4.60 (4.6-6.20) M/mm3 Hgb 12.3 L (14.0-18.0) g/dL Hct 41.1 L (42.0-52.0) % MCV 89.3 (80-100) fl MCH 26.7 (26-34) pg MCHC 29.9 L (32-36) g/dl RDW 16.2 H (11.5-14.5) % Plt Count 129 L (150-375) k/mm3 MPV 10.4 (7.4-10.4) fl Immature Gran % (Auto) 0.3 (0-0.5) % Neut % (Auto) 74.1 H (45.5-73.1) % Lymph % (Auto) 14.7 L (18.3-44.2) % Brewster % (Auto) 8.7 H (2.6-8.5) % Eos % (Auto) 2.1 (0-4.4) % Baso % (Auto) 0.1 L (0.2-1.2) % Lymph # (Auto) 1.17 (0.9-3.2) K/mm3 Brewster # (Auto) 0.7 H (0.1-0.6) K/mm3 Eos # (Auto) 0.2 (0-0.3) K/mm3 Baso # (Auto) 0.0 (0.0-0.1) K/mm3 Abs Immat Gran (auto) 0.02 (0.00-0.031) K/mm3 Absolute Neuts (auto) 5.9 (1.3-6.7) K/mm3 Absolute Nucleated RBC 0.000 (0.0-0.012) K/mm3 Band Neutrophils % Not Reportable Nucleated RBC % 0.0 (0.0-0.2) % Platelet Estimate Slightly decreased (Adequate) Hypochromasia 1+ Schistocytes None seen Sodium 142 (137-145) mmol/L Potassium 4.4 (3.4-5.0) mmol/L Chloride 112 H (98-107) mmol/L Carbon Dioxide 20 L (22-30) mmol/L Anion Gap 10 (4-12) mmol/L BUN 25 H (9-20) mg/dL Creatinine 1.54 H (0.7-1.3) mg/dL Estim Creat Clear Calc 39 ml/min Estimated GFR 44 L (59 - ) Glucose 92 (65-110) mg/dL Calcium 9.4 (8.4-10.2) mg/dL Total Bilirubin 0.5 (0.2-1.3) mg/dL AST 19 (17-59) U/L ALT 14 (6-50) U/L Alkaline Phosphatase 74 (38-126) U/L Total Protein 6.0 L (6.3-8.2) g/dL Albumin 3.9 (3.5-5.1) g/dL Lipase 56 (23-300) U/L Urine Color Yellow (Yellow) Urine Appearance Clear (Clear) Urine pH 5.0 (5.0-9.0) Ur Specific [place] 1.024 (1.001-1.035) Urine Protein 1+ H (Negative) mg/dL Urine Glucose (UA) 3+ H (Negative) mg/dL Urine Ketones Negative (Negative) mg/dL Ur Blood (Man) Negative (Negative) Urine Nitrate Negative (Negative) Urine Bilirubin Negative (Negative) Urine Urobilinogen 0.2 (<2.0) mg/dL Leukocyte Esterase Rfl Negative (Negative) MARIA DE JESUS/UL Urine RBC 0-2 (0-2) /hpf Urine WBC 0-5 (0-3) /hpf Ur Squamous Epith Cells None seen (Few) /hpf Urine Bacteria None seen /hpf Urine Casts 3-5 Imaging Data Radiologist's impression: Impressions Abdomen/Pelvis CT 08/02/24 12:59 IMPRESSION: 1. Radiographically uncomplicated sigmoid diverticulitis. 2. Small to moderate-sized fat-containing left inguinal hernia. 3. Mild paraseptal and thickening at the bilateral lung bases which could be due to atelectasis, mild pulmonary edema or NSIP pattern chronic interstitial lung disease. Discharge Plan Discharge Clinical Impression: Diverticulitis Patient Disposition: Home Condition: Stable Instructions: Antibiotic Form, Diverticulitis (DC) Additional Instructions: Antibiotic as directed until completed. Have close follow-up with GI. Have close follow-up with your primary care physician. If you have any worsening symptoms then please call or return to the emergency department. Patient Language: Lithuanian Prescriptions: New sulfamethoxazole-trimethoprim [Bactrim DS] 800-160 mg tablet 1 tablet PO Q12H 7 Days Qty: 14 0RF metronidazole 500 mg tablet 500 mg PO Q12H 7 Days Qty: 14 0RF No Action losartan 50 mg tablet 50 mg PO DAILY allopurinol 100 mg tablet 100 mg PO DAILY calcitriol 0.25 mcg capsule 0.25 mcg PO DAILY carvedilol 25 mg tablet 25 mg PO Q12H Rx Instructions: must administer with a meal/food duloxetine 30 mg capsule,delayed release(DR/EC) 30 mg PO DAILY ferrous sulfate 325 mg (65 mg iron) tablet,delayed release (DR/EC) 325 mg PO DAILY meclizine 12.5 mg tablet 12.5 mg PO TID PRN (Reason: dizziness) nitroglycerin 0.4 mg tablet, sublingual 0.4 mg sublingual Q5M PRN (Reason: chest pain) Rx Instructions: do not exceed 3 doses per episode omega-3 fatty acids 1,000 mg capsule 1,000 mg PO DAILY sertraline 25 mg tablet 25 mg PO DAILY ergocalciferol (vitamin D2) 1,250 mcg (50,000 unit) capsule 1,250 mcg PO .2 weeks Qty: 7 3RF Rx Instructions: 1 cap every 2 weeks aspirin 81 mg Capsule,Delayed Release(Dr/Ec) 81 mg PO DAILY Patient Comments: Pt holding [address] Jeffrey, last dose 04/23/24 amlodipine 10 mg Tablet 10 mg PO DAILY albuterol 90 mcg/actuation Aerosol 90 mcg INHALATION .as needed PRN (Reason: bronchospasm) finasteride 5 mg Tablet 5 mg PO DAILY rosuvastatin 40 mg Tablet 40 mg PO DAILY Anoro Ellipta 62.5-25 mcg/actuation Blister With Device 1 inh INHALATION DAILY dapagliflozin propanediol [Farxiga] 10 mg tablet 10 mg PO DAILY Qty: 30 8RF Follow-up/Referrals: Yohan,MD Nick [Primary Care Provider] - Moreno Templeton MD [Physician] -
[2024-08-02 14:14] VITALS: BP 143/118; PULSE 68; RESP 16; O2SAT 98
[2024-08-02] MEDS: SULFAMETHOXAZOLE/TRIMETHOPRIM 800/160 MG DS TABLET 1 TAB PO (14:16)
[2024-08-02] MEDS: metroNIDAZOLE 500 MG TABLET PO (14:16)
== END 2024-08-02 14:33 | disposition home or self-care (01) ==
PROVIDERS: Emergency Provider Emergency Medicine; PCP Hospitalist
DX: K57.32 Diverticulitis of large intestine without perforation or abscess without bleeding (principal); Z87.891 Personal history of nicotine dependence; Z79.899 Other long term (current) drug therapy; Z79.82 Long term (current) use of aspirin; R91.8 Other nonspecific abnormal finding of lung field; K40.90 Unilateral inguinal hernia, without obstruction or gangrene, not specified as recurrent
CPT/HCPCS: 36415; 74177; 80053; 81001; 83690; 85025; 99284; A9270; Q9967

== ENCOUNTER 2024-10-02 01:43 | Day surgery (SDC) | payer MEDICARE, SELFPAY ==
[2024-09-17 14:53] VITALS: BMI 33.1
--- NOTE | 2024-10-01 09:45 | WPDANESEPP ---
Anes - Eval Pre Procedure Procedure: Operation Date: 10/02/24 11:00 Proposed Procedures p Colonoscopy - Moreno Templeton MD Date/Time: 10/01/24 09:45 Pre Op Diagnosis: Diverticulitis of large intestine Patient Data Age: 78 Gender: M Height: 1.7 m Weight: 96 kg Allergies Allergy/AdvReac Type Severity Reaction Status Date / Time Quinolones Allergy Mild RASH Verified 09/17/24 14:50 celecoxib Allergy Unknown Unknown Verified 09/17/24 14:50 levofloxacin Allergy Unknown Unknown Verified 09/17/24 14:50 Penicillins Allergy Unknown Unknown Verified 09/17/24 14:50 Home Medications ?Medication ?Instructions ?Recorded ?Confirmed ?Type albuterol 90 mcg/actuation aerosol 90 mcg inhalation .as needed PRN 03/25/20 09/17/24 History inhaler bronchospasm amlodipine 10 mg tablet 10 mg PO DAILY 03/25/20 09/17/24 History aspirin 81 mg capsule,delayed 81 mg PO DAILY 03/25/20 09/17/24 History release finasteride 5 mg tablet 5 mg PO DAILY 03/25/20 09/17/24 History rosuvastatin 40 mg tablet 40 mg PO DAILY 03/25/20 09/17/24 History umeclidinium 62.5 mcg-vilanterol 1 inh inhalation DAILY 03/25/20 09/17/24 History 25 mcg/actuation powdr for inhalation (Anoro Ellipta) allopurinol 100 mg tablet 100 mg PO DAILY 01/22/24 09/17/24 History carvedilol 25 mg tablet 25 mg PO Q12H 01/22/24 09/17/24 History duloxetine 30 mg capsule,delayed 30 mg PO DAILY 01/22/24 09/17/24 History release ferrous sulfate 325 mg (65 mg 325 mg PO DAILY 01/22/24 09/17/24 History iron) tablet,delayed release losartan 50 mg tablet 50 mg PO DAILY 01/22/24 09/17/24 History meclizine 12.5 mg tablet 12.5 mg PO TID PRN dizziness 01/22/24 09/17/24 History nitroglycerin 0.4 mg sublingual 0.4 mg sublingual Q5M PRN chest 01/22/24 09/17/24 History tablet pain omega-3 fatty acids 1,000 mg 1,000 mg PO DAILY 10/08/24 06/04/25 History capsule sertraline 25 mg tablet 25 mg PO DAILY 01/22/24 09/17/24 History ergocalciferol (vitamin D2) 1,250 1,250 mcg PO .2 weeks #7 caps 07/21/24 09/17/24 Rx mcg (50,000 unit) capsule Farxiga 10 mg tablet 10 mg PO DAILY #30 tabs 07/30/24 09/17/24 Rx (dapagliflozin propanediol) calcitriol 0.25 mcg capsule 0.25 mcg PO DAILY #90 caps 09/09/24 09/17/24 Rx Results Review: All pre-operative results and documents have been reviewed as part of the pre-operative evaluation. [facility] Past Medical History Medical History (Updated 10/01/24 @ 09:46 by Ravinder Farias DO) DVT (deep venous thrombosis) COPD (chronic obstructive pulmonary disease) Chronic kidney disease, stage 3b Essential (primary) hypertension Hyperlipidemia, unspecified AMAYA (obstructive sleep apnea) CAD (coronary artery disease) Surgical History Surgical History (Updated 10/01/24 @ 09:46 by Ravinder Farias DO) Hx of fusion of cervical spine Social History Social History Smoking packs per day: 1 Smoking cigarettes per day: 20.0 Years smoked: 20 Smoking pack-years: 20.00 Smoking status: Former smoker Tobacco type: cigarettes Smoking end date: 04/16/96 Alcohol intake: never Substance use: never Substance use type: does not use Do You Feel Safe in your Home?: Yes Lack of Transportation: No Lack of Food: Never True Current Housing: I Have Housing Concerned About Future Housing: No Difficulty Paying Gas/Electric Bills: No Difficulty Paying for Meds: No Currently Unemployed: No Difficulty w/ Childcare or Family Care: No Living arrangements: with family Additional living arrangements comments: Gender identity (if verbalized by the patient): Male Sexual Orientation (if Verbalized by the Patient): Straight or Heterosexual Spiritual care concerns: No Exam Day of Procedure 10/01/24 09:45
--- OUTSIDE RECORDS SUMMARY | 2024-10-02 01:51 | XMS_ITS ---
Author Organization [facility] Office Address [address] [facility] [address] [place] [address] Care Team Providers Care Heavy Equipment Supervisor Name Role Phone Brenden Jony Unavailable [phone] Encounters Encounter Location Date Provider Diagnosis Jairo Bruno [address] [place] [address] 02/08/2024 Ivonne Wilcox Plan Of Treatment No Information Progress Notes * Ravinder HINOJOSA EDOB:[birth year] (78 yo M)Acc No.[id number]:02/08/2024 Patient: Ravinder NIÑO Provider: Ivonne WEIR MD, F.A.C.P, F.A.S.N. :1945 A ge:78 Y S ex:Male Date:02/08/2024 Address:[address] [place] [address] Subjective: * Chief Complaints: Objective: Assessment: Plan: * Billing Information: * Visit Code: * Procedure Codes: * Electronic signature of Ad Wilcox MD on 10/02/2024 at 01:51 AM CDT Sign off status: Pending * Provider: Ivonne WEIR MD, F.Lorin.C.P, F.A.S.N. Date: Generated for Printing/Faxing/eTransmitting on: 0 10/02/2024 01:51 AM CDT
--- OUTSIDE RECORDS SUMMARY | 2024-10-02 01:51 | XMS_ITS | Continuity of Care Document ---
Author Organization [facility] [place] Address [address] [place] [address] Phone Care Team Providers Care Graphic Design Teacher Name Role Phone Lucas KRAUSE, Jamal Unavailable [...] Charge [facility]/outpatient Visit, [facility] Advance Directives Directive Yes / No Effective Date File Name No Information Encounters Encounter Description Practice Location Reason(s) For Visit Diagnoses Date Provider Providers Copied on Encounter [facility], [address] [place], [place] [address], [place], [place], [id number], tel:[phone] [facility] No Information Jan- 0 9 Lucas Berry. [address] [place], [place], [address], [place]. tel:[phone] Referring Provider: Agnieszka Rodriguez OD, [place], [address]. tel:[phone] [facility], [address] [place] [address] [address], [place], [place], [address], tel:[phone] [facility] Professional No Information Jan- 9-201 9 Lucas Berry. [address] [facility], [facility] [place], [address], [place]. tel:[phone] Referring Provider: Agnieszka Rodriguez OD, [place], [address]. tel:[phone] [facility], [address], [place], [place], [address], [place] tel:[phone] [facility] No Information Oct-1 7- 9 Lucas Berry. [address], [place], [place], [address], [place]. tel:[phone] [facility], [address], [place], [place], [address], [place] tel:[phone] [facility] No Information Oct-0 2- 9 Lucas Berry. [address], [place], [place], [address], [place]. tel:[phone] Referring Provider: Agnieszka Rodriguez OD, [address] [place], [address]. tel:[phone] [facility], [address], [place], [place], [address], [place] tel:[phone] SEC [facility] Professional No Information Oct-0 9 Lucas Berry. [address] [facility], [place], [place], [address], [place]. tel:[phone] Referring Provider: Agnieszka Rodriguez OD, [address] [place], [address]. tel:[phone] [facility], [address], [place], [place], [address], [place] [phone] [facility] No Information Sep-2 9 Lucas Berry. [address] [place], [address], [place]. tel:[phone] Office/outpa tient Visit, [facility], [address], [place], [place], [address], tel:[phone] [facility] Idalia Greenberg Cataract evaluation (chief complaint) Combined forms of age-related cataract, bilateralVitr eous degeneration, left eyePinguecula , bilateralCorn eal opacity of left eye Dec- 0201 9 Lucas Berry. [address], [place], [place], [address], [place]. tel:[phone] Specialist : Agnieszka Rodriguez OD, [address], [place], [address]. tel:[phone] erring Provider: Agnieszka Rodriguez OD, [address] [place], [address]. tel:[phone] Family History Family Member Type Diagnosis Age At Onset No Information Payers Payer name Insurance type Covered alliance party ID Lul garcía(s) [facility] Mdcr Adv CI [id number] Social History Type Description Quantity Date Captured [...] eye. Pt referred by Dr. Rodriguez in [place], [place] - waiting on notes. Pt states that vision in [place] seems to be darker than with OD. Pt reports this morning his eyes have been itching. Pt denies flashes and floaters OU. Pt reports noticing more difficulty driving on bright days or at night because of glare. Pt states reading has been a little more difficult OU with glasses. Pt reports in [place] if the light is shining in the [...]
--- OUTSIDE RECORDS SUMMARY | 2024-10-02 01:51 | XMS_ITS | Encounter Summary ---
Author Organization [facility] Healthcare Address [address] [place] [address] Care Team Providers Care Ccnp Name Role Phone Luke Santiago MD Unavailable [phone] Michael Lynch MD Unavailable Nick Almanzar MD Primary Care Provider [phone] Maribell Diaz LPN Unavailable Savannah Staton MA Unavailable Savannah Staton MA Unavailable Emmanuel Rodriguez LPN Unavailable Jony Wilcox MD Unavailable [phone] Maria A Seymour MD Unavailable [phone] Alex Urbina MD Unavailable Millicent Mccracken RN Unavailable Vanessa Darling NP Unavailable [phone] Encounter Details Date Type Department Care Team [...] How often do you attend chur or sabianist services? More than 4 times per year 04/07/2022 Do you belong to any clubs o r organizations such as gnosticism groups, unions, fraternal or athletic groups, or [...] place to sleep or slept in a mcfp (including now)? No 04/07/2022 Sex and Gender Information Value Date Recorded Sex Assigned at Not on file Legal Sex Male 1:30 PM ROUGH RICE TENDER Gender Identity Male 02/21/2021 12:31 PM ROUGH RICE TENDER Sexual Orientation Straight 12/22/2020 11 :36 AM CDT documented as of this encounter Plan of Treatment Not on file documented as of this encounter Visit Diagnoses Not on filedocumented in this encounter Additional Health Concerns Infection Onset Date Last Indicated Resolved Time COVID: Suspected 05/30/2022 05/30/2022 05/30/2022 6:01 AM ROUGH RICE TENDER Coronavirus, contact + droplet 05/30/2022 05/30/2022 06/10/2022 10:20 AM ROUGH RICE TENDER COVID19 Comment:06/10/2022 This patient has recovered from a previous COVID infection and can be managed with routine PPE Opal Sorto RN 05/30/2022 05/30/2022 06/10/2022 10:17 AM ROUGH RICE TENDER COVID: Recovered Comment:Added based on recent COVID infection. 06/10/2022 06/10/2022 09/08/2022 3:05 AM C DT COVID: Suspected 07/18/2022 07/18/2022 07/18/2022 10:05 AM CDT COVID19 Comment:Patient is COVID recovered. 07/18/2022 Lei Arnold 07/18/2022 07/18/2022 07/18/2022 11:47 AM CDT COVID: Recovered Comment:Added based on recent COVID infection. 07/18/2022 09/14/2022 10/16/2022 3:05 AM C DT COVID: Suspected 06/16/2023 06/16/2023 06/16/2023 6:46 PM ROUGH RICE TENDER documented as of this encounter Care Teams Ccnp Relationship Specialty Start Date End Date Nick Almanzar MD [address] [place] [address] PCP - General Family Medicine 12/23/20 Luke Santiago MD Consulting Physician Pulmonary Disease 05/15/20 [place] [address] [facility] [address] [place] [address] Consulting Physician Pulmonary Disease 11/02/20 Maribell Diaz LPN [address] [place] [address] [address] [place] [address] Agricultural Aircraft Pilot 08/16/22 09/06/22 Savannah Staton MA [address] [place] [address] [address] [place] [address] ACO Care Anesthesiologist/Physician 02/22/23 02/22/23 Savannah Staton MA [address] [place] [address] [address] [place] [address] ACO Care Anesthesiologist/Physician 02/23/23 02/23/23 Emmanuel Rodriguez LPN [address] [place] [address] [address] [place] [address] ACO Care Anesthesiologist/Physician 05/21/23 06/20/23 Jony Wilcox MD [address] [place] [address] [address] [place] [address] Consulting Physician Nephrology 06/19/23 Maria A Seymour MD [address] [facility] [address], [place] [address] Consulting Physician Interventional Cardiology 06/19/23 Alex Urbina MD [address] [facility] [address], [facility] [address] [place], [place] [id number] Consulting Physician Cardiology 06/19/23 Millicent Mccracken, RN [address] [place] [address] [facility] [address] [place] [address] Agricultural Aircraft Pilot 06/20/23 07/18/23 [place] [address] [facility] [address] [place] [address] Nurse Practitioner Drug And Alcohol Counselor 02/27/24 documented as of this encounter
--- OUTSIDE RECORDS SUMMARY | 2024-10-02 01:51 | XMS_ITS | Patient Health Record ---
Author Organization [facility] Address [address] [facility] [address] [place] [address] Care Team Providers Care Cotton Picking Machine Operator Name Role Phone Jony Wilcox Unavailable [phone] Reason For Referral No Information Medications Medication SIG (Take, Route, Frequency, Duration) Notes Start Date End Date Status Losartan Potassium 50 MG TAKE 1 TABLET B Y MOUTH DAILY for 90 Active Problems Problem Type SNOMED Code ICD Code Onset Dates Problem Status W/U Status Risk Notes Problem Hyperglycemia due to type 2 diabetes mellitus (622913190557688) Type 2 diabetes mellitus with hyperglycemia (E11.65) Active confirmed Problem Obesity (532447151) Obesity, unspecified (E66.9) Active confirmed Problem Anxiety disorder (024835854) Anxiety disorder, unspecified (F41.9) Active confirmed Problem Essential hypertension (01383455) Essential (primary) hypertension (I10) Active confirmed Problem Chronic kidney disease stage 3B (disorder) (915118155) Chronic kidney disease, stage 3b (N18.32) Active confirmed Encounters Encounter Location Date Provider Diagnosis Jairo Bruno [address] [place] [address] 11/14/2023 Jony Wilcox Chronic kidney disea se, [...]
--- OUTSIDE RECORDS SUMMARY | 2024-10-02 01:52 | XMS_ITS ---
Author Organization [facility] Address [address] [place] [address] Care Team Providers Care Compound Finisher Name Role Phone Luke Santiago MD Unavailable [phone] Michael Lynch MD Unavailable Nick Almanzar MD Primary Care Provider [phone] Jony Wilcox MD Unavailable [phone] Maria A Seymour MD Unavailable [phone] Alex Urbina MD Unavailable Vanessa Darling NP [...] Procedure Name Priority Date/Time Associated Diagnosis Comments POCT LIPID PANEL Routine 09/10/2024 8:18 AM CDT Lipid screening EGFR Routine 07/09/2024 10:04 AM CDT PROTEIN / CREATININE RATIO, URINE, RANDOM Routine 07/09/2024 10:04 AM CDT PTH Routine 07/09/2024 10:04 AM CDT RENAL FUNCTION PANEL Routine 07/09/2024 10:04 AM CDT URIC ACID Routine 07/09/2024 10:04 AM CDT CBC WITHOUT DIFFERENTIAL Routine 07/09/2024 10:04 AM CDT VITAMIN D 25 HYDROXY Routine 07/09/2024 10:04 AM CDT US ABDOMINAL AORTIC ANEURYSM SCREENING Schedule Routine, Read Routine (OP Routine) 02/12/2024 9:07 AM CDT Screening for abdominal aortic aneurysm COLONOSCOPY 03/28/2021 7:23 AM NEEDLE CONTROL CHENILLER HEPATITIS C ANTIBODY Routine 01/19/2020 2:11 PM [...] for dizziness 90 tablet 05/15/19 24 Active Additional Information Patient not taking.Reported on 09/10/2024 nitroglycerin (NITROSTAT) 0.4 mg SL tabletIndications: Coronary artery disease of [place] artery of [place] heart with stable angina pectoris Place 1 tablet (0.4 mg total) under the tongue every 5 (five) minutes as needed for chest pain May repeat dose every 5 minutes for up to 3 doses total. 25 tablet 3 07/19/19 24 Active dapagliflozin propanediol (Farxiga) 10 mg tablet Take 1 tablet (10 mg total) by mouth daily 90 tablet 3 12/12/19 24 Active HYDROcodone-acetam inophen (NORCO) 5-325 mg per tabletIndications: Pain Take 1 tablet by mouth every 8 (eight) hours as needed for pain 10 tablet 02/13/20 24 Active Additional Information Patient not taking.Reported on 09/10/2024 rosuvastatin (CRESTOR) 40 mg tabletIndications: Mixed hyperlipidemia [...] 90 tablet 3 06/25/19 25 026 Active sertraline (ZOLOFT) 25 mg tablet Take 1 tablet (25 mg total) by mouth daily 90 tablet 4 08/26/[address] (CYMBALTA) 30 mg capsule Take 1 capsule (30 mg total) by mouth daily 90 capsule 3 08/26/19 25 026 Active amLODIPine (NORVASC) 10 mg tablet Take 1 tablet (10 mg total) by mouth daily 90 tablet 3 08/26/19 25 Active carvediloL (COREG) 25 mg tablet Take 1 tablet (25 mg total) by mouth 2 (two) times a day with meals 180 tablet 3 09/30/19 25 026 Active carvediloL (COREG) 25 mg tablet Take 1 tablet (25 mg total) by mouth 2 (two) times a day with meals 180 tablet 3 08/27/19 24 025 Discontin ued(Reord er) Active Problems Problem Noted Date Diagnosed Date [...] via J tube 06/21 and initially tolerating. [employer] re advanced TFlushes & spot bolus IVF [...] via J tube 06/21 and initially tolerating. [employer] re advanced TFlushes & spot bolus IVF to match losses. Continue Strict aspiration precautions. - ANIA recently NAD, no constipation. Recurrent emesis of [...] leukocytosis. Assessment & Plan (06/24/2022 5:08 PM NEEDLE CONTROL CHENILLER): Per nursing over last few weeks has [...] TF via J tube 06/21 and tolerating. [employer] re TFlushes. Continue Strict aspiration precautions. - ANIA recently NAD, no constipation. Assessment & Plan (06/23/2022 4:00 PM NEEDLE CONTROL CHENILLER): Per nursing over last few weeks has [...] tube 06/21. Continue Strict aspiration precautions. - ANIA recently NAD, no constipation. Assessment & Plan (06/22/2022 4:16 PM NEEDLE CONTROL CHENILLER): Per nursing over last few weeks has [...] NAD. Assessment & Plan (06/21/2022 3:29 PM NEEDLE CONTROL CHENILLER): Per nursing over last few weeks has [...] NAD. Assessment & Plan (06/20/2022 6:17 PM NEEDLE CONTROL CHENILLER): Per nursing over last few weeks has [...] negative. Assessment & Plan (06/24/2022 5:06 PM NEEDLE CONTROL CHENILLER): UA on 3/2 with nitrates and >50 WBC. No urine cultures with MDR. Started IV ceftriaxone. Might be adding some component to the AMS, but no change noted with treatment with IV Ceftriaxone (3/2-c). Urine Cx growing Klebsiella variicola. Sensitivities include ceftriaxone. Pt completed 7 day course 06/22/22. Checked for urinary retention, bladder scan negative. Assessment & Plan (06/23/2022 3:59 PM NEEDLE CONTROL CHENILLER): UA on 3/2 with nitrates and >50 WBC. No urine cultures with MDR. Started IV ceftriaxone. Might be adding some component to the AMS, but no change noted with treatment with IV Ceftriaxone (3/2-c). Urine Cx growing Klebsiella variicola. Sensitivities include ceftriaxone. Pt completed 7 day course 06/22/22. Checked for urinary retention, bladder scan negative. Assessment & Plan (06/22/2022 4:16 PM NEEDLE CONTROL CHENILLER): UA on 3/2 with nitrates and >50 WBC. No urine cultures with MDR. Started IV ceftriaxone. Might be adding some component to the AMS, but no change noted with treatment with IV Ceftriaxone (3/2-c). Pt completed 7 day course 06/22/22. Checked for urinary retention, bladder scan negative. -Urine Cx growing Klebsiella variicola. Sensitivities back. S to CTX Assessment & Plan (06/21/2022 3:31 PM NEEDLE CONTROL CHENILLER): UA on 3/2 with nitrates and >50 WBC. No urine cultures with MDR. Started IV ceftriaxone. Might be adding some component to the AMS. -Ceftriaxone 3/2- completes 7 day course on 06/22/22. Check for urinary retention, bladder scan negative. -Urine Cx growing Klebsiella variicola. Sensitivities back. S to CTX Assessment & Plan (06/19/2022 10:12 PM NEEDLE CONTROL CHENILLER): UA on 3/2 with nitrates and >50 WBC. No urine cultures with MDR. Will start him on ceftriaxone while urine culture results. Might be adding some component to the AMS. -Ceftriaxone 3/2- complete 7 day course. Check for urinary retention. -Urine Cx growing Klebsiella variicola. Sensitivities back. S to CTX Assessment & Plan (06/16/2022 12:04 PM NEEDLE CONTROL CHENILLER): UA on 3/2 with nitrates and >50 WBC. No urine cultures with MDR. Will start him on ceftriaxone while urine culture results. Might be adding some component to the AMS. -Ceftriaxone 3/2- -Urine Cx growing Klebsiella variicola. Sensitivities pending. Assessment & Plan (06/15/2022 1:24 PM NEEDLE CONTROL CHENILLER): UA on 32 with nitrates and >50 [...] unremarkable. Assessment & Plan (06/24/2022 5:03 PM NEEDLE CONTROL CHENILLER): Normocytic. AOCD pattern on labs. Likely from GIN, serious illness, frequent blood draws, etc. -Intermittently requiring PRBC last 06/03/22. F/u Hb 7.8, limit routine labs. No evidence of hematuria, melena or hematochezia. Assessment & Plan (06/23/2022 3:48 PM NEEDLE CONTROL CHENILLER): Normocytic. AOCD pattern on labs. Likely from GIN, serious illness, frequent blood draws, etc. -Intermittently requiring PRBC last 06/03/22. F/u Hb 7.3, limit routine labs. No evidence of hematuria, melena or hematochezia. Assessment & Plan (06/22/2022 4:08 PM NEEDLE CONTROL CHENILLER): Normocytic. AOCD pattern on labs. Likely from GIN, serious illness, frequent blood draws, etc. -Intermittently requiring PRBC last 06/03/22. F/u Hb 7.3, limit routine labs. No evidence of hematuria, melena or hematochezia. Assessment & Plan (06/21/2022 3:23 PM NEEDLE CONTROL CHENILLER): Normocytic. AOCD pattern on labs. Likely from GIN, serious illness, frequent blood draws, etc. -Intermittently requiring PRBC last 06/03/22. F/u Hb 7.5, limit routine labs. Assessment & Plan (06/20/2022 6:09 PM NEEDLE CONTROL CHENILLER): Normocytic. AOCD pattern on labs. Likely from GIN, serious illness, frequent blood draws, etc. -Intermittently requiring PRBC last 06/03/21. F/u Hb 7.5, limit routine labs. Assessment & Plan (06/16/2022 11:57 AM NEEDLE CONTROL CHENILLER): Normocytic. AOCD pattern on labs. Likely from GIN, serious illness, frequent blood draws, etc. -Intermittently requiring PRBC last 06/03/21. Assessment & Plan (06/15/2022 1:22 PM NEEDLE CONTROL CHENILLER): Normocytic. AOCD pattern on labs. Likely from GIN, serious illness, frequent blood draws, etc. -Intermittently requiring PRBC last 06/03/21. Assessment & Plan (06/14/2022 2:26 PM NEEDLE CONTROL CHENILLER): Normocytic. AOCD pattern on labs. Likely from GIN, serious illness, frequent blood draws, etc. -Intermittently requiring PRBC last 06/03/21. F/u Hb 8.1. Assessment & Plan (06/13/2022 4:10 PM NEEDLE CONTROL CHENILLER): Normocytic. AOCD pattern on labs. Likely from GIN, serious illness, frequent blood draws, etc. -Intermittently requiring PRBC last 06/03/21. F/u Hb 8.1. Assessment & Plan (06/12/2022 6:17 PM NEEDLE CONTROL CHENILLER): Normocytic. AOCD pattern on labs. Likely from GIN, serious illness, frequent blood draws, etc. - intermittently requiring PRBC last 06/03/21. F/u Hb 8.1. Billing statement. I have reviewed current Hb 8.5, remains stable post recent transfusion with HD stability. Plan to limit blood draws, monitor serial counts for additional needs. Transfuse PRN Hb<7. Assessment & Plan (06/11/2022 4:33 PM NEEDLE CONTROL CHENILLER): Normocytic. AOCD pattern on labs. Likely from GIN, serious illness, frequent blood draws, etc. - intermittently requiring PRBC last 06/03/21. F/u Hb 8.1. Billing statement. I have reviewed current Hb 8.5, remains stable post recent transfusion with HD stability. Plan to limit blood draws, monitor serial counts for additional needs. Transfuse PRN Hb<7 Assessment & Plan (06/10/2022 3:23 PM NEEDLE CONTROL CHENILLER): Normocytic. AOCD pattern on labs. Likely from GIN, serious illness, frequent blood draws, etc. - intermittently requiring PRBC last 06/03/21. F/u Hb 8.1. Billing statement. I have reviewed current Hb 8.1, remains stable post recent transfusion with HD stability. Plan to limit blood draws, monitor serial counts for additional needs. Transfuse PRN Hb<7 Assessment & Plan (06/10/2022 9:24 AM NEEDLE CONTROL CHENILLER): Normocytic. AOCD pattern on labs. Likely from GIN, serious illness, frequent blood draws, etc. - intermittently requiring PRBC last 06/03/21. F/u Hb 8.1. Billing statement. I have reviewed current Hb 8.1, remains stable post recent transfusion with HD stability. Plan to limit blood draws, monitor serial counts for additional needs. Transfuse PRN Hb<7 Assessment & Plan (06/08/2022 4:02 PM NEEDLE CONTROL CHENILLER): Normocytic. AOCD pattern on labs. Likely from GIN, serious illness, frequent blood draws, etc. - intermittently requiring PRBC last 06/03/21. F/u Hb 8.1. Billing statement. I have reviewed current Hb 8.1, remains stable post recent transfusion with HD stability. Plan to limit blood draws, monitor serial counts for additional needs. Assessment & Plan (06/07/2022 11:00 AM NEEDLE CONTROL CHENILLER): Normocytic. AOCD pattern on labs. Likely from GIN, serious illness, frequent blood draws, etc. - intermittently requiring PRBC last 06/03/21 Billing statement. I have reviewed current Hb 8.1, remains stable post recent transfusion with HD stability. Plan to limit blood draws, monitor serial counts for additional needs. Assessment & Plan (06/06/2022 6:31 PM NEEDLE CONTROL CHENILLER): Normocytic. 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 - intermittently requiring PRBC last 06/03 Billing statement. I have reviewed current Hb 8.1, remains stable post transfusion. Plan to limit blood draws, monitor serial counts. Assessment & Plan (06/05/2022 2:00 PM NEEDLE CONTROL CHENILLER): - Normocytic. 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 - intermittently requiring PRBC last 06/03 Assessment & Plan (06/04/2022 11:09 AM NEEDLE CONTROL CHENILLER): - Normocytic. 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 - f/u CBC today p 1 unit PRBC 06/03 Assessment & Plan (06/03/2022 2:57 PM NEEDLE CONTROL CHENILLER): - Normocytic. 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 - requiring 1 unit PRBC today for slow drop likely AOCD and lab draws Assessment & Plan (06/02/2022 2:26 PM NEEDLE CONTROL CHENILLER): - Normocytic. 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 - cont to monitor H/H, transfuse for Hb < 7, remains relatively stable but at borderline of requiring PRBC Assessment & Plan (06/01/2022 2:18 PM NEEDLE CONTROL CHENILLER): - Normocytic. 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 - cont to monitor H/H, transfuse for Hb < 7, remains relatively stable but at borderline of requiring PRBC Assessment & Plan (05/31/2022 2:57 PM NEEDLE CONTROL CHENILLER): - Normocytic. 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 - cont to monitor H/H, transfuse for Hb < 7 Assessment & Plan (05/30/2022 2:03 PM NEEDLE CONTROL CHENILLER): - Normocytic. 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 - cont to monitor H/H, transfuse for Hb < 7 Assessment & Plan (05/29/2022 3:13 PM NEEDLE CONTROL CHENILLER): Normocytic. B12, folate normal. Likely from GIN, serious illness, frequent blood draws, etc. Drop over last 24 hrs likely dilutional due to IVF. No e/o bleeding - cont to monitor H/H, transfuse for Hb < 7 - ferritin high, c/w anemia of chronic dz Assessment & Plan (05/28/2022 1:53 PM NEEDLE CONTROL CHENILLER): Normocytic. B12, folate normal. Likely from GIN, serious illness, frequent blood draws, etc. Drop over last 24 hrs likely dilutional due to IVF. No e/o bleeding - cont to monitor H/H, transfuse for Hb < 7 - ferritin high, c/w anemia of chronic dz Assessment & Plan (05/27/2022 3:53 PM NEEDLE CONTROL CHENILLER): Normocytic. B12, folate normal. Likely from GIN, serious illness, frequent blood draws, etc. Drop over last 24 hrs likely dilutional due to IVF. No e/o bleeding - cont to monitor H/H, transfuse for Hb < 7 - ferritin high, c/w anemia of chronic dz Assessment & Plan (05/26/2022 1:22 PM NEEDLE CONTROL CHENILLER): Normocytic. B12, folate normal. Likely from GIN, [...] -Apparently can get denosumab but would need HISTORY TEACHER approval. Appreciate nephrology help sensipar not an [...] -Apparently can get denosumab but would need HISTORY TEACHER approval. Appreciate nephrology help sensipar not an [...] status. Assessment & Plan (06/24/2022 5:06 PM NEEDLE CONTROL CHENILLER): Normocalcemic on arrival. Uncorrected Ca as high [...] -Apparently can get denosumab but would need HISTORY TEACHER approval. Appreciate nephrology help sensipar not an [...] am. Assessment & Plan (06/23/2022 3:58 PM NEEDLE CONTROL CHENILLER): Normocalcemic on arrival. Uncorrected Ca as high [...] -Apparently can get denosumab but would need HISTORY TEACHER approval. Appreciate nephrology help sensipar not an [...] 06/23. Assessment & Plan (06/22/2022 4:15 PM NEEDLE CONTROL CHENILLER): Normocalcemic on arrival. Uncorrected Ca as high [...] -Apparently can get denosumab but would need HISTORY TEACHER approval. Appreciate nephrology help sensipar not an [...] iCa. Assessment & Plan (06/21/2022 3:27 PM NEEDLE CONTROL CHENILLER): Normocalcemic on arrival. Uncorrected Ca as high [...] -Apparently can get denosumab but would need HISTORY TEACHER approval. Appreciate nephrology help sensipar not an [...] response. Assessment & Plan (06/20/2022 6:15 PM NEEDLE CONTROL CHENILLER): Normocalcemic on arrival. Uncorrected Ca as high [...] -Apparently can get denosumab but would need HISTORY TEACHER approval. Appreciate nephrology help sensipar not an [...] approval. Assessment & Plan (06/16/2022 11:57 AM NEEDLE CONTROL CHENILLER): Normocalcemic on arrival. Uncorrected Ca as high [...] low level hyperCa. Recommend continued NPO by [facility] 06/08. - Continue water flushes per tube (300 q4). - Ca++ increased today: 12.1 (11.9). - if Cr continues to downtrend may be able to consider bisphosphonate. 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 - Cosyntropin test within normal limits, AI ruled out. - 1L of IVF today Assessment & Plan (06/15/2022 1:22 PM NEEDLE CONTROL CHENILLER): Normocalcemic on arrival. Uncorrected Ca as high [...] low level hyperCa. Recommend continued NPO by [facility] [place] [place] 06/08. - Continue water flushes per tube (300 q4). - Ca++ increased today: 12.1 (11.9). - if Cr continues to downtrend may be able to consider bisphosphonate. 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 - Cosyntropin test within normal limits, AI ruled out. Assessment & Plan (06/14/2022 2:26 PM NEEDLE CONTROL CHENILLER): Normocalcemic on arrival. Uncorrected Ca as high [...] low level hyperCa. Recommend continued NPO by [facility] [place] 06/08. - Continue water flushes per tube (300 q4). - Ca++ increased today: 12.1 (11.9). - if Cr continues to downtrend may be able to consider bisphosphonate. 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 Recommending ordering cosyntropin to rule out adrenal insufficiency. Assessment & Plan (06/13/2022 4:03 PM NEEDLE CONTROL CHENILLER): Normocalcemic on arrival. Uncorrected Ca as high [...] low level hyperCa. Recommend continued NPO by [facility] 06/08. - Continue water flushes per tube (300 q4). - Ca++ decreased today: 11.9 (12.8). - if Cr continues to downtrend may be able to consider bisphosphonate. - Continue to monitor Assessment & Plan (06/12/2022 6:20 PM NEEDLE CONTROL CHENILLER): Normocalcemic on arrival. Uncorrected Ca as high [...] low level hyperCa. Recommend continued NPO by [facility] 06/08. - cont [...] supplementation. Assessment & Plan (06/11/2022 4:35 PM NEEDLE CONTROL CHENILLER): Normocalcemic on arrival. Uncorrected Ca as high [...] low level hyperCa. Recommend continued NPO by [facility] 06/08. - cont [...] supplementation. Assessment & Plan (06/10/2022 3:28 PM NEEDLE CONTROL CHENILLER): Normocalcemic on arrival. Uncorrected Ca as high [...] low level hyperCa. Recommend continued NPO by [facility] 06/08. - cont [...] supplementation. Assessment & Plan (06/10/2022 9:27 AM NEEDLE CONTROL CHENILLER): Normocalcemic on arrival. Uncorrected Ca as high [...] Advanced tolerance of PO by [facility] 06/08. - cont water per [...] supplementation. Assessment & Plan (06/08/2022 4:09 PM NEEDLE CONTROL CHENILLER): Normocalcemic on arrival. Uncorrected Ca as high [...] supplementation. Assessment & Plan (06/07/2022 11:04 AM NEEDLE CONTROL CHENILLER): Normocalcemic on arrival. Uncorrected Ca as high [...] supplementation. Assessment & Plan (06/06/2022 6:40 PM NEEDLE CONTROL CHENILLER): Normocalcemic on arrival. Uncorrected Ca as high [...] supplementation. Assessment & Plan (06/05/2022 1:59 PM NEEDLE CONTROL CHENILLER): - Normocalcemic on arrival. Uncorrected Ca as [...] now Assessment & Plan (06/04/2022 11:09 AM NEEDLE CONTROL CHENILLER): - Normocalcemic on arrival. Uncorrected Ca as [...] considered Assessment & Plan (06/03/2022 2:56 PM NEEDLE CONTROL CHENILLER): - Normocalcemic on arrival. Uncorrected Ca as [...] 11.4 Assessment & Plan (06/02/2022 2:25 PM NEEDLE CONTROL CHENILLER): - Normocalcemic on arrival. Uncorrected Ca as [...] IVF Assessment & Plan (06/01/2022 2:18 PM NEEDLE CONTROL CHENILLER): - Normocalcemic on arrival. Uncorrected Ca as [...] d/c Assessment & Plan (05/31/2022 2:57 PM NEEDLE CONTROL CHENILLER): - Normocalcemic on arrival. Uncorrected Ca as [...] stable/downtrending Assessment & Plan (05/30/2022 2:01 PM NEEDLE CONTROL CHENILLER): - Normocalcemic on arrival. Uncorrected Ca as [...] improve Assessment & Plan (05/29/2022 3:13 PM NEEDLE CONTROL CHENILLER): - Normocalcemic on arrival. Uncorrected Ca as [...] improve Assessment & Plan (05/28/2022 1:52 PM NEEDLE CONTROL CHENILLER): - Normocalcemic on arrival. Uncorrected Ca as [...] improve Assessment & Plan (05/27/2022 3:52 PM NEEDLE CONTROL CHENILLER): - Normocalcemic on arrival. Uncorrected Ca as [...] today Assessment & Plan (05/26/2022 1:19 PM NEEDLE CONTROL CHENILLER): - Normocalcemic on arrival. Uncorrected Ca as [...] IVF Assessment & Plan (05/27/2022 3:53 PM NEEDLE CONTROL CHENILLER): - Has been hypo- and hypernatremic during course Sodium now normal, cont to monitor daily BMP Assessment & Plan (05/26/2022 1:19 PM NEEDLE CONTROL CHENILLER): - Has been hypo- and hypernatremic during course Sodium now normal, cont to monitor daily BMP Cervical stenosis of spine 09/19/2021 Overview (09/19/2021): Added automatically from request for surgery [id number] Assessment & Plan (11/10/2022 9:33 AM CDT): [...] need NSGY clinic OP follow up at [place]; NSGY to arrange; Dr. Casas no longer at /[facility] Assessment & Plan (06/26/2022 5:11 PM CDT): Presented for elective C 3-5 ACDF and C3-7 posterior fusion on 03/17/22. Sutures out. NSurg f/u appreciated. Plan MRI c/t spine as above, assess for structural or occult infection (unlikely). Touch base with neurosurgery when imaging available Elevated ESR, CRP. Will need NSGY clinic OP follow up at [place]. Surgical incision healed well. No muscular spasticity [...] need NSGY clinic OP follow up at [place]. Surgical incision healed well. No muscular spasticity noted on LE exam. Bilateral strength intact. Therapy per neurosurgery, if able to participate, currently doesn't follow commands. Assessment & Plan (06/24/2022 5:04 PM NEEDLE CONTROL CHENILLER): Presented for elective C 3-5 ACDF and C3-7 posterior fusion on 03/17/22. Sutures out. NSurg f/u appreciated. Plan MRI c/t spine as above, assess for structural or occult infection (unlikely). Will need NSGY clinic OP follow up at [place]. Surgical incision healed well. No muscular spasticity noted on LE exam. Bilateral strength intact. Therapy per neurosurgery, if able to participate, currently doesn't follow commands. Assessment & Plan (06/23/2022 3:49 PM NEEDLE CONTROL CHENILLER): Presented for elective C 3-5 ACDF and C3-7 posterior fusion on 03/17/22. Sutures out. NSurg f/u appreciated. Will need NSGY clinic OP follow up at [place]. Surgical incision healed well. No muscular spasticity noted on LE exam. Bilateral strength intact. Therapy per neurosurgery, if able to participate, currently doesn't follow commands. Assessment & Plan (06/22/2022 4:10 PM NEEDLE CONTROL CHENILLER): Presented for elective C 3-5 ACDF and C3-7 posterior fusion on 03/17/22. Sutures out. Will need NSGY clinic OP follow up at [place]. Surgical incision healed well. No muscular spasticity noted on LE exam. Bilateral strength intact. Therapy per neurosurgery, if able to participate, currently doesn't follow commands. Assessment & Plan (06/21/2022 3:24 PM NEEDLE CONTROL CHENILLER): Presented for elective C 3-5 ACDF and C3-7 posterior fusion on 03/17/22. Sutures out. Will need NSGY clinic OP follow up at [place]. Surgical incision healed well. No muscular spasticity noted on LE exam. Therapy per neurosurgery, if able to participate. Assessment & Plan (06/20/2022 6:10 PM NEEDLE CONTROL CHENILLER): Presented for elective C 3-5 ACDF and C3-7 posterior fusion on 03/17/22. Sutures out. Will need NSGY clinic OP follow up at [place]. Surgical incision healed well. No muscular spasticity noted on LE exam. Therapy per neurosurgery, if able to participate. Assessment & Plan (06/16/2022 11:56 AM NEEDLE CONTROL CHENILLER): Presented for elective C 3-5 ACDF and C3-7 posterior fusion on 03/17/22. Sutures out. Will need NSGY clinic OP follow up at [place]. Surgical incision healed well. No muscular spasticity noted on LE exam. Therapy per neurosurgery, if able to participate. Assessment & Plan (06/15/2022 1:19 PM NEEDLE CONTROL CHENILLER): Presented for elective C 3-5 ACDF and C3-7 posterior fusion on 03/17/22. Sutures out. Will need NSGY clinic OP follow up at [place]. Surgical incision healed well. No muscular spasticity noted on LE exam. Therapy per neurosurgery, if able to participate. Assessment & Plan (06/14/2022 2:19 PM NEEDLE CONTROL CHENILLER): Presented for elective C 3-5 ACDF and C3-7 posterior fusion on 03/17/22. Sutures out. Will need NSGY clinic OP follow [place] at [facility]. Surgical incision healed well. No muscular spasticity noted on LE exam. Therapy per neurosurgery, if able to participate. Assessment & Plan (06/13/2022 3:58 PM NEEDLE CONTROL CHENILLER): Presented for elective C 3-5 ACDF and C3-7 posterior fusion on 03/17/22. Sutures out. Will need NSGY clinic OP follow up at [facility]. Surgical incision healed well. No muscular spasticity noted on LE exam. Therapy per neurosurgery, if able to participate. Assessment & Plan (06/12/2022 6:18 PM NEEDLE CONTROL CHENILLER): Presented for elective C 3-5 ACDF and C3-7 posterior fusion on 03/17/22. Sutures out. Will need NSGY clinic OP follow up at [facility]. Surgical incision healed well. No muscular spasticity noted on LE exam. Therapy per neurosurgery, if able to participate. Plan DC to SNF once bed available. Assessment & Plan (06/11/2022 4:33 PM NEEDLE CONTROL CHENILLER): Presented for elective C 3-5 ACDF and C3-7 posterior fusion on 03/17/22. Sutures out. Will need NSGY clinic OP follow up at [facility]. Surgical incision healed well. No muscular spasticity noted on exam. Therapy per neurosurgery. Plan DC to SNF once bed available. Assessment & Plan (06/10/2022 3:23 PM NEEDLE CONTROL CHENILLER): Presented for elective C 3-5 ACDF and C3-7 posterior fusion on 03/17/22. Sutures out. Will need NSGY clinic OP follow up at [facility]. Surgical incision healing well. No muscular spasticity noted on exam. Therapy per neurosurgery. Plan DC to SNF once bed available. Assessment & Plan (06/10/2022 9:24 AM NEEDLE CONTROL CHENILLER): Presented for elective C 3-5 ACDF and C3-7 posterior fusion on 03/17/22. Sutures out. Will need NSGY clinic OP follow up at [facility]. Surgical incision healing well. No muscular spasticity noted on exam. Therapy per neurosurgery. Plan DC to SNF Assessment & Plan (06/08/2022 3:56 PM NEEDLE CONTROL CHENILLER): Presented for elective C 3-5 ACDF and C3-7 posterior fusion on 03/17/22. Sutures out. Will need NSGY clinic OP follow up at [facility]. Surgical incision healing well. No muscular spasticity noted on exam. Assessment & Plan (06/07/2022 10:57 AM NEEDLE CONTROL CHENILLER): Presented for elective C 3-5 ACDF and C3-7 posterior fusion on 03/17/22. Sutures out. Will need NSGY clinic OP follow up at [facility]. Surgical incision healing well. No muscular spasticity noted on exam. Assessment & Plan (06/06/2022 6:33 PM NEEDLE CONTROL CHENILLER): Presented for elective C 3-5 ACDF and C3-7 posterior fusion on 03/17. Sutures out. Will need NSGY follow up at [facility]. Surgical incision healing well. No muscular spasticity noted on exam. Assessment & Plan (06/05/2022 2:02 PM NEEDLE CONTROL CHENILLER): - Presented for elective C 3-5 ACDF and C3-7 posterior fusion on 03/17. Sutures out. Will need [facility]GY follow up at [facility]. Assessment & Plan (05/31/2022 2:57 PM NEEDLE CONTROL CHENILLER): - Presented for elective C 3-5 ACDF and C3-7 posterior fusion on 03/17. Sutures out. Will need NSGY follow up at [facility]. Assessment & Plan (05/30/2022 2:04 PM NEEDLE CONTROL CHENILLER): - Presented for elective C 3-5 ACDF and C3-7 posterior fusion on 03/17. Sutures out. Will need NSGY follow up at [facility]. Assessment & Plan (05/29/2022 3:13 PM NEEDLE CONTROL CHENILLER): - Presented for elective C 3-5 ACDF and C3-7 posterior fusion on 03/17. Sutures out. Will need [facility]GY follow up at [facility]. Assessment & Plan (05/28/2022 1:53 PM NEEDLE CONTROL CHENILLER): - Presented for elective C 3-5 ACDF and C3-7 posterior fusion on 03/17. Sutures out. Will need [facility]GY follow up at [facility]. Assessment & Plan (05/27/2022 3:53 PM NEEDLE CONTROL CHENILLER): - Presented for elective C 3-5 ACDF and C3-7 posterior fusion on 03/17. Sutures out. Will need [facility]GY follow up at [facility]. Assessment & Plan (05/25/2022 3:16 PM NEEDLE CONTROL CHENILLER): - Presented for elective C 3-5 ACDF and C3-7 posterior fusion on 03/17. Sutures out. Will need [facility]GY follow up at [facility]. Strangulated inguinal hernia 09/19/2021 Overview (04/09/2022): Added automatically from request for surgery [id number] Assessment & Plan (08/16/2022 5:36 PM CDT): [...] stranding. Assessment & Plan (06/23/2022 4:00 PM NEEDLE CONTROL CHENILLER): S/p ex lap and repair 04/09. Had evidence of intestinal ischemia. Well healed incision. -Still NPO, swallow study redone given his being more awake, but speech recommends continued NPO status. On J tube feeds. Assessment & Plan (06/22/2022 4:16 PM NEEDLE CONTROL CHENILLER): S/p ex lap and repair 04/09. Had evidence of intestinal ischemia. Well healed incision. -Still NPO, swallow study redone given his being more awake, but speech recommends continued NPO status. Assessment & Plan (06/21/2022 3:27 PM NEEDLE CONTROL CHENILLER): S/p ex lap and repair 04/09. Had evidence of intestinal ischemia. Well healed incision. -Still NPO, swallow study redone given his being more awake, but speech recommends continued NPO status. Assessment & Plan (06/20/2022 6:16 PM NEEDLE CONTROL CHENILLER): S/p ex lap and repair 04/09. Had evidence of intestinal ischemia. Well healed incision. -Still NPO, swallow study redone given his being more awake, but speech recommends continued NPO status. Assessment & Plan (06/16/2022 11:56 AM NEEDLE CONTROL CHENILLER): S/p ex lap and repair 04/09. Had evidence of intestinal ischemia. Well healed incision. -Tolerating TF at goal per Gtube. Nutritional needs appear to be getting met. -Remains NPO per speech follow up on 06/14. Ok to do ice chips. Assessment & Plan (06/15/2022 1:20 PM NEEDLE CONTROL CHENILLER): S/p ex lap and repair 04/09. Had evidence of intestinal ischemia. Well healed incision. -Tolerating TF at goal per Gtube. Nutritional needs appear to be getting met. -Remains NPO per speech follow up on 06/14. Ok to do ice chips. Assessment & Plan (06/14/2022 2:20 PM NEEDLE CONTROL CHENILLER): S/p ex lap and repair 04/09. Had evidence of intestinal ischemia. Well healed incision. -Tolerating TF at goal per Gtube. Nutritional needs appear to be getting met. -Remains NPO per speech follow up on 06/08. Ok to do ice chips. Assessment & Plan (06/13/2022 3:59 PM NEEDLE CONTROL CHENILLER): S/p ex lap and repair 04/09. Had evidence of intestinal ischemia. Well healed incision. -Tolerating TF at goal per Gtube. Nutritional needs appear to be getting met. -Remains NPO per speech follow up on 06/08. Assessment & Plan (06/12/2022 6:20 PM NEEDLE CONTROL CHENILLER): S/p ex lap and repair 04/09. Had evidence of intestinal ischemia. Well healed incision. - tolerating TF per Gtube. Nutritional needs appear to be getting met. -Remains NPO per speech f/u 06/08. Billing statement I have reviewed electrolytes, K 3.6, ca 12.5. Discussed with RN and no tube feed residuals. Plan strict aspiration precautions, further advance diet and adjust tube feeds per animal sitter. Plan to recheck bed weight. Assessment & Plan (06/11/2022 4:35 PM NEEDLE CONTROL CHENILLER): S/p ex lap and repair 04/09. Had evidence of intestinal ischemia. Well healed incision. - tolerating TF per Gtube. Nutritional needs appear to be getting met. -Remains NPO per speech f/u 06/08. Billing statement I have reviewed electrolytes, K 3.6, ca 12.5. Discussed with RN and no tube feed residuals. Plan strict aspiration precautions, further advance diet and adjust tube feeds per animal sitter. Plan to recheck bed weight. Assessment & Plan (06/10/2022 3:30 PM NEEDLE CONTROL CHENILLER): S/p ex lap and repair 04/09. Had evidence of intestinal ischemia. Well healed incision. - tolerating TF per Gtube. Nutritional needs appear to be getting met. -Remains NPO per speech f/u 06/08. Billing statement I have reviewed electrolytes, K 3.6, ca 12.8. Discussed with RN and no tube feed residuals. Plan strict aspiration precautions, further advance diet and adjust tube feeds per animal sitter. Plan to recheck bed weight. Assessment & Plan (06/10/2022 9:27 AM NEEDLE CONTROL CHENILLER): S/p ex lap and repair 04/09. Had evidence of intestinal ischemia. Well healed incision. - tolerating TF per Gtube. Nutritional needs appear to be getting met. - ADAT per speech. Billing statement I have reviewed electrolytes, K 3.3, ca 10.6. Discussed with RN and no tube feed residuals. Plan strict aspiration precautions, further advance diet and adjust tube feeds per animal sitter. Plan to recheck bed weight. Assessment & Plan (06/08/2022 4:11 PM NEEDLE CONTROL CHENILLER): S/p ex lap and repair 04/09. Had evidence of intestinal ischemia. Well healed incision. - tolerating TF per Gtube. Nutritional needs appear to be getting met. - ADAT per speech. Billing statement I have reviewed electrolytes, K 3.3, ca 10.6. Discussed with RN and no tube feed residuals. Plan further advance diet and adjust tube feeds per animal sitter. Plan to recheck bed weight. Assessment & Plan (06/07/2022 11:08 AM NEEDLE CONTROL CHENILLER): S/p ex lap and repair 04/09. Had [...] weight. Assessment & Plan (06/06/2022 6:41 PM NEEDLE CONTROL CHENILLER): - S/p ex lap and repair 04/09. Had evidence of intestinal ischemia. Well healed incision. - tolerating TF per Gtube. - NPO per speech. Billing statement I have reviewed electrolytes, K 3.3, ca 10.6. Discussed with RN and no tube feed residuals. Plan to continue tube feeds at current rate. Assessment & Plan (06/05/2022 2:01 PM NEEDLE CONTROL CHENILLER): - S/p ex lap and repair 04/09. Had evidence of intestinal ischemia. Well healed incision. - tolerating TF - NPO per speech Assessment & Plan (06/04/2022 11:09 AM NEEDLE CONTROL CHENILLER): - S/p ex lap and repair 04/09. Had evidence of intestinal ischemia. Well healed incision. - tolerating TF - NPO per speech Assessment & Plan (06/02/2022 2:26 PM NEEDLE CONTROL CHENILLER): - S/p ex lap and repair 04/09. Had evidence of intestinal ischemia. Well healed incision. - tolerating TF - NPO per speech Assessment & Plan (06/01/2022 2:18 PM NEEDLE CONTROL CHENILLER): - S/p ex lap and repair 04/09. Had evidence of intestinal ischemia. Well healed incision. - tolerating TF - NPO per speech Assessment & Plan (05/31/2022 2:57 PM NEEDLE CONTROL CHENILLER): - S/p ex lap and repair 04/09. Had evidence of intestinal ischemia. Well healed incision. - tolerating TF - NPO per speech Assessment & Plan (05/30/2022 2:04 PM NEEDLE CONTROL CHENILLER): - S/p ex lap and repair 04/09. Had evidence of intestinal ischemia. Well healed incision. - tolerating TF - NPO 2/2 mental status Assessment & Plan (05/29/2022 3:13 PM NEEDLE CONTROL CHENILLER): - S/p ex lap and repair 04/09. Had evidence of intestinal ischemia. Well healed incision. Assessment & Plan (05/28/2022 1:53 PM NEEDLE CONTROL CHENILLER): - S/p ex lap and repair 04/09. Had evidence of intestinal ischemia. Well healed incision. Assessment & Plan (05/27/2022 3:53 PM NEEDLE CONTROL CHENILLER): - S/p ex lap and repair 04/09. Had evidence of intestinal ischemia. Well healed incision. Assessment & Plan (05/25/2022 3:17 PM NEEDLE CONTROL CHENILLER): - S/p ex lap and repair 04/09. Had evidence of intestinal ischemia. Well healed incision. Age-related osteoporosis wit hout current pathological fracture 08/23/2021 Assessment & Plan (10/25/2021 3:35 PM CDT): Not well controlled, patient also has hypo vitamin-D Will start alendronate 70 mg weekly Continue ergocalciferol 02361 units weekly Ensure calcium approximately 1000 mg [...] (01/27/2021): Added automatically from request for surgery [id number] Bilateral primary osteoarthritis of knee 021 Assessment [...] ambulation Assessment & Plan (04/29/2021 11:06 AM NEEDLE CONTROL CHENILLER): Stable, patient reports occasional episodes of vertigo, [...] Stable. Assessment & Plan (06/24/2022 5:04 PM NEEDLE CONTROL CHENILLER): History of COPD. Managed with Budesonide nebs and PRN albuterol. Prior exacerbation treatment this stay, currently controlled. Currently on RA, no wheezing. Unable to follow commands for MDI, continue nebulizers with RT and doing well. Stable. Assessment & Plan (06/23/2022 3:49 PM NEEDLE CONTROL CHENILLER): History of COPD. Managed with Budesonide nebs and PRN albuterol. Prior exacerbation treatment this stay, currently controlled. Currently on RA, no wheezing. -Unable to follow commands for MDI, continue nebulizers with RT and doing well. Assessment & Plan (06/22/2022 4:10 PM NEEDLE CONTROL CHENILLER): History of COPD. Managed with Budesonide nebs and PRN albuterol. Prior exacerbation treatment this stay, currently controlled. Currently on RA, no wheezing. -Unable to follow commands for MDI, continue nebulizers and doing well. Assessment & Plan (06/21/2022 3:24 PM NEEDLE CONTROL CHENILLER): History of COPD. Managed with Budesonide nebs and PRN albuterol. Prior exacerbation treatment this stay, currently controlled. Currently on RA, no wheezing. -Unable to follow commands for MDI, continue nebs. Doing well. Assessment & Plan (06/20/2022 6:10 PM NEEDLE CONTROL CHENILLER): History of COPD. Managed with Budesonide nebs and PRN albuterol. Prior exacerbation treatment this stay, currently controlled. Currently on RA, no wheezing. -Unable to follow commands for MDI, continue nebs. Doing well. Assessment & Plan (06/16/2022 11:50 AM NEEDLE CONTROL CHENILLER): History of COPD. Managed with Budesonide nebs and PRN albuterol. Prior exacerbation treatment this stay, currently controlled. Currently on RA, no wheezing. -Unable to follow commands for MDI, continue nebs. Assessment & Plan (06/15/2022 1:18 PM NEEDLE CONTROL CHENILLER): History of COPD. Managed with Budesonide nebs and PRN albuterol. Prior exacerbation treatment this stay, currently controlled. Currently on RA, no wheezing. -Unable to follow commands for MDI, continue nebs. Assessment & Plan (06/14/2022 2:19 PM NEEDLE CONTROL CHENILLER): History of COPD. Managed with Budesonide nebs and PRN albuterol. Prior exacerbation treatment this stay, currently controlled. Currently on RA, no wheezing. -Unable to follow commands for MDI, continue nebs. Assessment & Plan (06/13/2022 3:55 PM NEEDLE CONTROL CHENILLER): History of COPD. Managed with Budesonide nebs and PRN albuterol. Prior exacerbation treatment this stay, currently controlled. Currently on RA, no wheezing. -Unable to follow commands for MDI, continue nebs. Assessment & Plan (06/12/2022 6:18 PM NEEDLE CONTROL CHENILLER): Hx COPD. Managed Budesonide nebs and PRN [...] plan. Assessment & Plan (06/11/2022 4:33 PM NEEDLE CONTROL CHENILLER): Hx COPD. Managed Budesonide nebs and PRN [...] plan. Assessment & Plan (06/10/2022 3:24 PM NEEDLE CONTROL CHENILLER): Hx COPD. Managed Budesonide nebs and PRN albuterol. Prior exacerbation treatment this stay, currently controlled On 2L-RA. Unable to follow commands for MDI, continue nebs. Billing statement Reviewed O2 requirements last 24hrs and recent chest imaging, exam without wheezing but encephalopathy limits use of MDIs. Plan to continue nebs as prescribed. No change in current plan. Assessment & Plan (06/10/2022 9:25 AM NEEDLE CONTROL CHENILLER): Hx COPD. Managed Budesonide nebs and PRN albuterol. Prior exacerbation treatment this stay, currently controlled On 2L-RA. Billing statement Reviewed O2 requirements last 24hrs and recent chest imaging, exam without wheezing but encephalopathy limits use of MDIs. Plan to continue nebs as prescribed. No change in current plan. Assessment & Plan (06/08/2022 4:03 PM NEEDLE CONTROL CHENILLER): Hx COPD. Managed Budesonide nebs and PRN albuterol. Prior exacerbation treatment this stay, currently controlled On 2L-RA. Billing statement Reviewed O2 requirements last 24hrs and recent chest imaging, exam without wheezing but encephalopathy limits use of MDIs. Plan to continue nebs as prescribed. Assessment & Plan (06/07/2022 11:02 AM NEEDLE CONTROL CHENILLER): - Budesonide nebs and PRN albuterol. Prior exacerbation treatment this stay, currently controlled On RA Billing statement Reviewed O2 requirements last 24hrs and recent chest imaging, exam without wheezing but encephalopathy limits use of MDIs. Plan to continue nebs as prescribed. Assessment & Plan (06/06/2022 6:34 PM NEEDLE CONTROL CHENILLER): - Budesonide nebs and PRN albuterol. Prior exacerbation treatment this stay, currently controlled On RA Billing statement Reviewed O2 requirements and recent chest imaging. Plan DC continuous O2 sat monitoring. Assessment & Plan (06/05/2022 2:02 PM NEEDLE CONTROL CHENILLER): - Budesonide nebs and PRN albuterol. Prior exacerbation treatment this stay, currently controlled On RA Assessment & Plan (05/30/2022 2:04 PM NEEDLE CONTROL CHENILLER): - Budesonide nebs and PRN albuterol. Prior exacerbation treatment this stay, currently controlled On RA Assessment & Plan (05/29/2022 3:13 PM NEEDLE CONTROL CHENILLER): - Budesonide nebs and PRN albuterol. Prior exacerbation treatment this stay, currently controlled On RA Assessment & Plan (05/28/2022 1:53 PM NEEDLE CONTROL CHENILLER): - Budesonide nebs and PRN albuterol. Prior exacerbation treatment this stay, currently controlled On RA Assessment & Plan (05/27/2022 3:53 PM NEEDLE CONTROL CHENILLER): - Budesonide nebs and PRN albuterol. Prior exacerbation treatment this stay, currently controlled On RA Assessment & Plan (05/26/2022 1:17 PM NEEDLE CONTROL CHENILLER): - Budesonide nebs and PRN albuterol. Prior [...] Ellipta Assessment & Plan (06/07/2021 4:52 PM NEEDLE CONTROL CHENILLER): Stable, well controlled; quit smoking approximately 24 years ago Active in pulmonary rehab, walking for up to 60 minutes at a time new line rare use of rescue inhaler Continue Trelegy Ellipta 1 puff daily Assessment & Plan (04/29/2021 11:07 AM NEEDLE CONTROL CHENILLER): Stable, well controlled; patient reports he does get dyspneic especially significant exertion Follows with pulmonology for management Continue Trelegy Ellipta 1 puff daily, albuterol p.r.n. for dyspnea Assessment & Plan (02/21/2021 8:31 PM NEEDLE CONTROL CHENILLER): Continues to have significant cough, barking cough; [...] daily Assessment & Plan (06/07/2021 4:51 PM NEEDLE CONTROL CHENILLER): Stable, well controlled; continue to monitor Assessment & Plan (04/29/2021 11:07 AM NEEDLE CONTROL CHENILLER): Stable, well controlled; patient reports occasional episodes of nocturia x1 Continue finasteride 5 mg daily Assessment & Plan (05/06/2020 12:57 PM NEEDLE CONTROL CHENILLER): Patient does report increased urine frequency. UA [...] issues. Assessment & Plan (05/06/2020 12:56 PM NEEDLE CONTROL CHENILLER): Continue meclizine prn. Assessment & Plan (04/08/2020 3:22 AM NEEDLE CONTROL CHENILLER): Patient feels ataxic but [id number] and exov-ju-ikig were normal. MRI is pending. Neurology has been consulted. Meclizine has not helped. Fall precautions. May need PT after MRI is completed. Assessment & Plan (04/07/2020 1:52 PM NEEDLE CONTROL CHENILLER): With new lethargy, orthostatic hypotension- I believe [...] 03/04/2019 Assessment & Plan (03/04/2019 2:55 PM NEEDLE CONTROL CHENILLER): Will do emg/ncs . Recommended cock-up wrist [...] monitor. Assessment & Plan (06/24/2022 5:05 PM NEEDLE CONTROL CHENILLER): Continue amlodipine 10 mg daily. Discontinued home HCTZ on admit. On coreg and uptitrated to 25 BID on 06/05/22. Volume stable off dialysis. No peripheral edema. -Mostly normotensive, will continue to monitor. Assessment & Plan (06/23/2022 3:49 PM NEEDLE CONTROL CHENILLER): Continue amlodipine 10 mg daily. Discontinued home HCTZ on admit. On coreg and uptitrated to 25 BID on 06/05/22. Volume stable off dialysis. -Mostly normotensive, will continue to monitor. Assessment & Plan (06/22/2022 4:11 PM NEEDLE CONTROL CHENILLER): Continue amlodipine 10 mg daily. Discontinued home HCTZ on admit. On coreg and uptitrated to 25 BID on 06/05/22. Volume stable off dialysis. -Mostly normotensive, will continue to monitor. Assessment & Plan (06/21/2022 3:25 PM NEEDLE CONTROL CHENILLER): Continue amlodipine 10 mg daily. Discontinued home HCTZ on admit. On coreg and uptitrated to 25 BID on 06/05. Volume stable. -Mostly normotensive, will continue to monitor. Assessment & Plan (06/20/2022 6:10 PM NEEDLE CONTROL CHENILLER): -Continue amlodipine 10 mg daily -Continue coreg. Uptitrated coreg 25 BID on 06/05. Volume stable. -Mostly normotensive, will continue to monitor. Assessment & Plan (06/16/2022 11:50 AM NEEDLE CONTROL CHENILLER): -Continue amlodipine 10 mg daily -Continue coreg. Uptitrated coreg 25 BID on 06/05. -Mostly normotensive, will continue to monitor. Assessment & Plan (06/15/2022 1:17 PM NEEDLE CONTROL CHENILLER): -Continue amlodipine 10 mg daily -Continue coreg. Uptitrated coreg 25 BID on 06/05. -Mostly normotensive, will continue to monitor. Assessment & Plan (06/14/2022 2:19 PM NEEDLE CONTROL CHENILLER): -Continue amlodipine 10 mg daily -Continue coreg. Uptitrated coreg 25 BID on 06/05. -Mostly normotensive, will continue to monitor. Assessment & Plan (06/13/2022 3:54 PM NEEDLE CONTROL CHENILLER): -Continue amlodipine 10 mg daily -Continue coreg. Uptitrated coreg 25 BID on 06/05. -Mostly normotensive, will continue to monitor. Assessment & Plan (06/12/2022 6:19 PM NEEDLE CONTROL CHENILLER): Cont amlodipine, coreg, uptitrated coreg to 25 bid given persistent HTN 2/20. Improved trend, continue dosing at this level. Billing statement Plan continue dual agent control. Plan monitor renal function as OP. Assessment & Plan (06/11/2022 4:34 PM NEEDLE CONTROL CHENILLER): Cont amlodipine, coreg, uptitrated coreg to 25 bid given persistent HTN 2/20. Improved trend, continue dosing at this level. Billing statement Plan continue dual agent control. Plan monitor renal function. Assessment & Plan (06/10/2022 3:25 PM NEEDLE CONTROL CHENILLER): Cont amlodipine, coreg, uptitrated coreg to 25 bid given persistent HTN 2/20. Improved trend, continue dosing at this level. Billing statement Plan continue dual agent control. Plan monitor renal function. Assessment & Plan (06/10/2022 9:25 AM NEEDLE CONTROL CHENILLER): Cont amlodipine, coreg, uptitrated coreg to 25 bid given persistent HTN 2/20. Improved trend, continue dosing at this level. Billing statement Plan continue dual agent control. Assessment & Plan (06/08/2022 4:04 PM NEEDLE CONTROL CHENILLER): Cont amlodipine, coreg, uptitrated coreg to 25 bid given persistent HTN 2/20. Improved trend, continue dosing at this level. Billing statement Plan dual agent control. Assessment & Plan (06/07/2022 11:03 AM NEEDLE CONTROL CHENILLER): Cont amlodipine, coreg, uptitrated coreg to 25 bid given persistent HTN 2/20. Improved trend, continue dosing at this level. Assessment & Plan (06/06/2022 6:35 PM NEEDLE CONTROL CHENILLER): Cont amlodipine, coreg, uptitrated coreg to 25 bid given persistent HTN 06/05. Improved trend, will hold dosing at this level. Assessment & Plan (06/05/2022 2:02 PM NEEDLE CONTROL CHENILLER): Cont amlodipine, coreg, uptitrated coreg to 25 bid given persistent HTN 06/05 Assessment & Plan (05/30/2022 2:05 PM NEEDLE CONTROL CHENILLER): Cont amlodipine, coreg Assessment & Plan (05/29/2022 3:13 PM NEEDLE CONTROL CHENILLER): Cont current meds Assessment & Plan (05/28/2022 1:53 PM NEEDLE CONTROL CHENILLER): Cont current meds Assessment & Plan (05/27/2022 3:53 PM NEEDLE CONTROL CHENILLER): Cont current meds Assessment & Plan (05/26/2022 1:17 PM NEEDLE CONTROL CHENILLER): Cont current meds Assessment & Plan (12/20/2021 [...] mg Assessment & Plan (06/07/2021 4:50 PM NEEDLE CONTROL CHENILLER): Stable, well controlled; blood pressure at target today Continue hydrochlorothiazide 25 mg daily Assessment & Plan (04/29/2021 11:04 AM NEEDLE CONTROL CHENILLER): Controlled; blood pressure at target Continue amlodipine 10 mg, to chlorothiazide 25 mg, losartan 100 mg Assessment & Plan (07/20/2020 7:39 AM CDT): Rechecked in office and was 136/78. Will continue to monitor. May need to change medication. Pt also sees cardiology. Will see him back next month and will recheck Assessment & Plan (05/06/2020 12:55 PM NEEDLE CONTROL CHENILLER): Presented with elevated BP. Presently well controlled. Continue home Amlodipine and Losartan. HCTZ is on hold as patient is currently on iv fluids. Assessment & Plan (04/08/2020 3:18 AM NEEDLE CONTROL CHENILLER): Amlodipine and losartan have been resumed with hold parameters. Holding hydrochlorothiazide as it can cause vertigo. Assessment & Plan (03/24/2020 8:24 AM NEEDLE CONTROL CHENILLER): Blood pressure is adequately controlled on current [...] recommended. Assessment & Plan (06/07/2021 4:51 PM NEEDLE CONTROL CHENILLER): Stable, well controlled; continue sertraline 100 mg [...] change. Assessment & Plan (05/06/2020 12:54 PM NEEDLE CONTROL CHENILLER): Continue home Prozac. Mood is stable at this time. Assessment & Plan (04/08/2020 3:18 AM NEEDLE CONTROL CHENILLER): Continue SSRI Assessment & Plan (03/24/2020 8:24 AM NEEDLE CONTROL CHENILLER): Stable on current medication. Continue fluoxetine as [...] mg Assessment & Plan (06/07/2021 4:50 PM NEEDLE CONTROL CHENILLER): Stable, well controlled; no side effects from current medication Continue rosuvastatin 40 mg daily Assessment & Plan (04/29/2021 11:05 AM NEEDLE CONTROL CHENILLER): Stable, well controlled LDL less than 100; continues to have elevated ASCVD risk score 24.8% Continue rosuvastatin 40 mg daily, good blood pressure control Assessment & Plan (05/06/2020 12:54 PM NEEDLE CONTROL CHENILLER): Continue home statin Assessment & Plan (04/08/2020 3:18 AM NEEDLE CONTROL CHENILLER): Continue Crestor Assessment & Plan (03/24/2020 8:24 AM NEEDLE CONTROL CHENILLER): Lipid abnormalities are stable, reviewed previous lipid levels in epic. Pharmacotherapy as ordered. Order for lipid panel [...] materials from doctor or pharmacy Sometimes 10/09/[address] [facility] Utilities Answer Date Recorded In the past 12 months has th e [employer], gas, oil, or water [employer] threatened to shut off services in your [...] often do you attend chur ch or jewish services? More than 4 times per year 06/20/2023 Do you belong to any clubs o r organizations such as druze groups, unions, fraternal or athletic groups, or [...] place to sleep or slept in a [place] [facility] [place] facility (including now)? No 06/20/2023 Personal Safety Answer Date Recorded Have you ever been in or are you currently in a harmful physical or emotional relationship or is someone making you feel afraid or unsafe? Denies 06/16/2023 Sex and Gender Information Value Date Recorded Sex Assigned at Not on file Legal Sex Male 1:30 PM NEEDLE CONTROL CHENILLER Gender Identity Male 02/21/2021 12:31 PM NEEDLE CONTROL CHENILLER Sexual Orientation Straight 12/22/2020 11 :36 AM CDT Last Filed Vital Signs Vital Sign Reading Time Taken Comments Blood Pressure 132/70 09/10/2024 8:23 AM CDT Pulse 59 09/10/2024 8:23 AM CDT Temperature 36.8 C (98.3 F) 02/13/2024 8:35 AM CDT Respiratory Rate 18 09/10/2024 8:23 AM CDT Oxygen Saturation 96% 09/10/2024 8:23 AM CDT Inhaled Oxygen Concentration - - Weight 94.8 kg (209 lb) 09/10/2024 8:23 AM CDT Height 170.2 cm (5' 7) 09/10/2024 8:23 AM CDT Body Mass Index 32.73 09/10/2024 8:23 AM CDT Results * POCT lipid panel (09/10/2024 8:18 AM CDT) Cholesterol, POC 131 <200 MG/DL HDL, POC 48 >=40 mg/dL Triglycerides, POC 94 <=149 mg/dL LDL Cholesterol POC 65 <=129 mg/dL Chol/HDL Ratio, POC 1.3 NONE Non-HDL Cholesterol, POC 83 NONE mg/dL Cholesterol Total, POC 131 30 - 199 mg/dL Capillary blood 09/10/2024 8 :18 AM CDT us Reymundo Bloom MD POINT OF CARE TEST ORDERABLES Fi nal Result * (ABNORMAL) eGFR (07/09/2024 10:04 AM CDT) [...] was last reviewed 2021. Testing performed by: [address] [address] Blood 07/09/2024 10:0 4 AM CDT 07/09/2024 1:21 PM CDT Sanford Mcduffie MD LAB BLOOD ORDERABLES Final R esult [facility] ([place]) 1 [facility] Department [place] [address] * Protein / creatinine ratio, urine, random (07/09/2024 10:04 AM CDT) Protein, ur, quant 16.4 mg/dL Comment: Interpretive Data No reference range established. Current interpretive data was last revised 2018. Testing performed by: [address] [address] Creatinine Ur 182.8 mg/dL [facility] ([place]) Comment: Interpretive Data No reference range established. Current interpretive data was last revised 2018. Testing performed by: [address] [address] Protein/creatinin e ratio 89.7 0.0 - 180.0 mg/g CR [facility] ([place]) Comment:Testing performed by : [facility], [address] [place] [address], [address] Urine 07/09/2024 10:0 4 AM CDT 07/09/2024 10:05 AM CDT Sanford Mcduffie MD LAB URINE ORDERABLES Final R esult Performing Organization Address [facility] Co de Phone Number [facility] ([place]) 1 [facility] [place] [address] * Vitamin D 25 hydroxy (07/09/2024 10:04 AM CDT) [facility] Vitamin D 25-OH 72 30 - 80 ng/mL Comment:Testing performed by : [facility], [address] [place] [address], [address] Blood 07/09/2024 10:0 4 AM CDT 07/09/2024 10:04 AM CDT Sanford Mcduffie MD LAB BLOOD ORDERABLES Final R [facility] Performing Organization Address [facility] de Phone Number [facility] ([place]) 1 [place] [address] * (ABNORMAL) CBC without differential (07/09/2024 10:04 AM CDT) [facility] WBC 7.6 3.8 - 9.9 K/cumm Comment:Testing performed by : [facility], [address] [place] [address], [address] Hgb 12.3(L) 13.0 - 17.5 g/dL [facility] ([place]) Comment:Testing performed by : [facility], [address] [place] [address], [address] Hct 40.4 38.9 - 50.3 % [facility] ([place]) Comment:Testing performed by : [facility], [address] [place] [address], [address] Plt 173 150 - 400 K/cumm [facility] ([place]) Comment:Testing performed by : [facility], [address] [place] [address], [address] MPV 11.8 9.1 - 12.3 fL [facility] ([place]) Comment:Testing performed by : [facility], [address] [place] [address], [address] RBC 4.62 4.30 - 5.80 M/cumm [facility] ([place]) Comment:Testing performed by : [facility], [address] [place] [address], [address] MCV 87.4 81.3 - 96.4 fL [facility] ([place]) Comment:Testing performed by : [address], [address] MCH 26.6(L) 27.1 - 33.3 pg [facility] ([place]) Comment:Testing performed by : [facility], [address] [place] [address], [address] MCHC 30.4(L) 32.3 - 35.7 g/dL [facility] ([place]) Comment:Testing performed by : [address], [address] RDW CV 15.7(H) 11.1 - 14.9 % [facility] ([place]) Comment:Testing performed by : [address], [address] RDW SD 49.9(H) 35.7 - 48.1 fL [facility] ([place]) Comment:Testing performed by : [address], [address] NRBC abs 0.00 0.00 - 0.01 K/cumm [facility] ([place]) Comment:Testing performed by : [address], [address] Blood 07/09/2024 10:0 4 AM CDT 07/09/2024 10:04 AM CDT us Sanford Mcduffie MD LAB BLOOD ORDERABLES Final R esult [facility] ([place]) 1 [facility] [place] [address] * Uric acid (07/09/2024 10:04 AM CDT) [facility] Uric acid 5.0 3.0 - 8.0 mg/dL Comment:Testing performed by : [facility], [address] [place] [address]., [address] Blood 07/09/2024 10:0 4 AM CDT 07/09/2024 10:05 AM CDT Sanford Mcduffie MD LAB BLOOD ORDERABLES Final R esult [facility] ([place]) 1 [facility] [place] [address] * PTH (07/09/2024 10:04 AM CDT) [facility] PTH 65 15 - 65 pg/mL Comment:Testing performed by : [facility], [address] [place] [address], [address] Blood 07/09/2024 10:0 4 AM CDT 07/09/2024 10:05 AM CDT Sanford Mcduffie MD LAB BLOOD ORDERABLES Final R esult [facility] ([place]) 1 [place] [address] * (ABNORMAL) Renal function panel (07/09/2024 10:04 AM CDT) [facility] Sodium 145 135 - 145 mmol/L Comment:Testing performed by : [facility], [address] [place] [address]., [address] Potassium, pl 4.2 3.3 - 4.9 mmol/L [facility] ([place]) Comment:Testing performed by : [facility], [address] [place] [address]., [address] Chloride 111(H) 97 - 110 mmol/L [facility] ([place]) Comment:Testing performed by : [facility], [address] [place] [address]., [address] CO2 26 22 - 32 mmol/L [facility] ([place]) Comment:Testing performed by : [facility], [address] [place] [address], [address] Anion gap 8 2 - 15 mmol/L [facility] ([place]) Comment:Testing performed by : [facility], [address] [place] [address], [address] BUN 37(H) 6 - 25 mg/dL [facility] ([place]) Comment:Testing performed by : [address], [address] Creatinine 1.76(H) 0.80 - 1.30 mg/dL [facility] ([place]) Comment:Testing performed by : [address], [address] Glucose 98 70 - 199 mg/dL [facility] [...] was last revised 2022. Testing performed by: [facility], [address] [place] [address], [address] Calcium 10.0 8.5 - 10.3 mg/dL [facility] ([place]) Comment:Testing performed by : [address], [address] Phosphorus, pl 3.7 2.3 - 4.5 mg/dL [facility] ([place]) Comment:Testing performed by : [address], [address] Albumin 3.9 3.5 - 5.0 g/dL [facility] ([place]) Comment:Testing performed by : [address], [address] Blood 07/09/2024 10:0 4 AM CDT 07/09/2024 10:05 AM CDT Sanford Mcduffie MD LAB BLOOD ORDERABLES Final R esult [facility] [place] 1 [facility] [place] [address] * US Abdominal Aortic Aneurysm Screening (02/12/2024 [...] by: Lani Simmons M.D. Reymundo Bloom MD [facility] [place]ED[place] Final Result * COLONOSCOPY (03/28/2021 7:23 AM NEEDLE CONTROL CHENILLER) Anatomical Region Laterality Modality Other Narrative Procedure Note Roe Dior MD - 03/28/2021 7:23 AM CST [facility] Patient Name: Ravinder Chapman Procedure Date: 03/28/2021 7:23 AM Date of : 1945 Admit Type: Outpatient Age: 75 Gender: Male Attending MD: Roe Dior M.D. Room: [facility] ROOM 2 Note Status: Finalized Patient [...] scope was passed under direct vision. TheColonoscope [id number] was introduced through the anus and advanced [...] 7:23 AM Procedure Code(s): --- Professional --- 66307, Colonoscopy, flexible; with removal of tumor(s), polyp(s), or other lesion(s) by snare technique Diagnosis Code(s): --- Professional --- K57.30, Diverticulosis of large intestine without perforation orabscess without bleeding K63.5, Polyp of colon K64.9, Unspecified hemorrhoids Z86.010, Personal history of colonic polyps CPT copyright 2019 [employer]. All rights reserved. The codes documented in this report are preliminary and upon medical insurance coder reviewmay be revised to meet current compliance requirements. Recognized by the [employer] for promoting quality [...] GENERAL OR DERABLES Final Result [facility] [address] Department [place] [address] from Last 3 Months or Most Recently Relevant to Health Maintenance
--- OUTSIDE RECORDS SUMMARY | 2024-10-02 01:52 | XMS_ITS ---
Author Organization [facility] Office Address [address] [place] [address] Care Team Providers Care Weekend Anchor Name Role Phone Brenden Jony Unavailable [phone] Encounters Encounter Location Date Provider Diagnosis Jairo Bruno [address] [place] [address] 02/07/2024 Ivonne Wilcox Plan Of Treatment No Information Progress Notes * Ravinder HINOJOSA EDOB:[birth year] (78 yo M)Acc No.[id number]:02/07/2024 Progress Notes Patient: Ravinder NIÑO Provider: Ivonne WEIR MD, F.Lorin.C.P, F.A.S.N. :1945 A ge:78 Y S ex:Male Date:02/07/2024 Address:[address] [place] [address] Subjective: * Chief Complaints: * * Medical History: Objective: * Vitals: Assessment: Plan: * Treatment: * Billing Information: * Visit Code: * Procedure Codes: * Electronic signature of Ad Wilcox MD on 10/02/2024 at 01:51 AM CDT Sign off status: Pending * Provider: Ivonne WEIR MD, F.Lorin.C.P, F.A.S.N. Date: Generated for Printing/Faxing/eTransmitting on: 10/02/2024 01:51 AM CDT
--- OUTSIDE RECORDS SUMMARY | 2024-10-02 01:52 | XMS_ITS | Referral Summary ---
Author Organization [facility] Address [address] [place] [address] Care Team Providers Care Enterprise Resource Planning Consultant Name Role Phone Luke Santiago MD Unavailable Michael Lynch MD Unavailable [phone] Nick Almanzar MD Primary Care Provider [phone] Jony Wilcox MD Unavailable [phone] Maria A Seymour MD Unavailable [phone] Alex Urbina MD Unavailable Vanessa Darling NP Unavailable Encounters Date Type Department Care Team Description 09/25/2024 Telephone [facility] [address] [place] [address] Janet Ricks MA Unsuccessful Phone Call 1 ([employer] med adh) 09/10/2024 8:45 AM CDT Office Visit [facility] [address] [place] [address] Reymundo Bloom MD Coronary artery disease of [place] artery of [place] heart with stable angina pectoris (Primary Dx); LBBB (left bundle branch block); Chronic diastolic congestive heart failure (HCC); Essential hypertension; Stage 3b chronic kidney disease (HCC); AMAYA on CPAP; History of DVT (deep vein thrombosis); Lipid screening; History of tobacco abuse 07/09/2024 9:55 AM CDT Lab [facility] [address] [place] [address] from Last 3 Months Allergies Active Allergy [...] via J tube 06/21 and initially tolerating. Earth Science Technical Officer re advanced TFlushes & spot bolus IVF to match losses. Continue Strict aspiration precautions. KUB recently NAD, no constipation. Recurrent emesis of tube feed 3. Verified TF via J port. Antiemetics PRN, advance as needed. CT abd/p w/o [address] findings in the abdomen [...] via J tube 06/21 and initially tolerating. Earth Science Technical Officer re advanced TFlushes & spot bolus IVF [...] leukocytosis. Assessment & Plan (06/24/2022 5:08 PM GEOGRAPHIC INFORMATION SYSTEM ANALYST): Per nursing over last few weeks has [...] TF via J tube 06/21 and tolerating. Earth Science Technical Officer re TFlushes. Continue Strict aspiration precautions. - ANIA recently NAD, no constipation. Assessment & Plan (06/23/2022 4:00 PM GEOGRAPHIC INFORMATION SYSTEM ANALYST): Per nursing over last few weeks has [...] Continue Strict aspiration precautions. - ANIA recently KELTON, no constipation. Assessment & Plan (06/22/2022 4:16 PM GEOGRAPHIC INFORMATION SYSTEM ANALYST): Per nursing over last few weeks has had intermittent vomiting. - Started bolus TF to see if this helps. Rrecurrence with suspected aspiration 38 on bolus feeds. CXR neg for PNA. Add reglan q8hrs for GERD D/w IR and converted G to GJ tube 06/21/22 Resumed TF via J tube 06/21. Add low dose reglan for reflux 06/21. Continue Strict aspiration precautions. - Cont to observe. - ANIA recently KELTON. Assessment & Plan (06/21/2022 3:29 PM GEOGRAPHIC INFORMATION SYSTEM ANALYST): Per nursing over last few weeks has [...] NAD. Assessment & Plan (06/20/2022 6:17 PM GEOGRAPHIC INFORMATION SYSTEM ANALYST): Per nursing over last few weeks has [...] Plan (07/14/2022 12:14 PM CDT): Urine Cx 3/2 growing Klebsiella variicola. Sensitivities include ceftriaxone. Completed [...] negative. Assessment & Plan (06/24/2022 5:06 PM GEOGRAPHIC INFORMATION SYSTEM ANALYST): UA on 2 with nitrates and >50 WBC. No urine cultures with MDR. Started IV ceftriaxone. Might be adding some component to the AMS, but no change noted with treatment with IV Ceftriaxone (3/2-c). Urine Cx growing Klebsiella variicola. Sensitivities include ceftriaxone. Pt completed 7 day course 06/22/22. Checked for urinary retention, bladder scan negative. Assessment & Plan (06/23/2022 3:59 PM GEOGRAPHIC INFORMATION SYSTEM ANALYST): UA on 3 with nitrates and >50 WBC. No urine cultures with MDR. Started IV ceftriaxone. Might be adding some component to the AMS, but no change noted with treatment with IV Ceftriaxone (32-c). Urine Cx growing Klebsiella variicola. Sensitivities include ceftriaxone. Pt completed 7 day course 06/22/22. Checked for urinary retention, bladder scan negative. Assessment & Plan (06/22/2022 4:16 PM GEOGRAPHIC INFORMATION SYSTEM ANALYST): UA on 3/2 with nitrates and >50 WBC. No urine cultures with MDR. Started IV ceftriaxone. Might be adding some component to the AMS, but no change noted with treatment with IV Ceftriaxone (32-c). Pt completed 7 day course 06/22/22. Checked for urinary retention, bladder scan negative. -Urine Cx growing Klebsiella variicola. Sensitivities back. S to CTX Assessment & Plan (06/21/2022 3:31 PM GEOGRAPHIC INFORMATION SYSTEM ANALYST): UA on 32 with nitrates and >50 WBC. No urine cultures with MDR. Started IV ceftriaxone. Might be adding some component to the AMS. -Ceftriaxone 3/2- completes 7 day course on 06/22/22. Check for urinary retention, bladder scan negative. -Urine Cx growing Klebsiella variicola. Sensitivities back. S to CTX Assessment & Plan (06/19/2022 10:12 PM GEOGRAPHIC INFORMATION SYSTEM ANALYST): UA on 3/2 with nitrates and >50 WBC. No urine cultures with MDR. Will start him on ceftriaxone while urine culture results. Might be adding some component to the AMS. -Ceftriaxone 3/2- complete 7 day course. Check for urinary retention. -Urine Cx growing Klebsiella variicola. Sensitivities back. S to CTX Assessment & Plan (06/16/2022 12:04 PM GEOGRAPHIC INFORMATION SYSTEM ANALYST): UA on 3/2 with nitrates and >50 WBC. No urine cultures with MDR. Will start him on ceftriaxone while urine culture results. Might be adding some component to the AMS. -Ceftriaxone 3/2- -Urine Cx growing Klebsiella variicola. Sensitivities pending. Assessment & Plan (06/15/2022 1:24 PM GEOGRAPHIC INFORMATION SYSTEM ANALYST): UA on 3/2 with nitrates and >50 [...] unremarkable. Assessment & Plan (06/24/2022 5:03 PM GEOGRAPHIC INFORMATION SYSTEM ANALYST): Normocytic. AOCD pattern on labs. Likely from GIN, serious illness, frequent blood draws, etc. -Intermittently requiring PRBC last 06/03/22. F/u Hb 7.8, limit routine labs. No evidence of hematuria, melena or hematochezia. Assessment & Plan (06/23/2022 3:48 PM GEOGRAPHIC INFORMATION SYSTEM ANALYST): Normocytic. AOCD pattern on labs. Likely from GIN, serious illness, frequent blood draws, etc. -Intermittently requiring PRBC last 06/03/22. F/u Hb 7.3, limit routine labs. No evidence of hematuria, melena or hematochezia. Assessment & Plan (06/22/2022 4:08 PM GEOGRAPHIC INFORMATION SYSTEM ANALYST): Normocytic. AOCD pattern on labs. Likely from GIN, serious illness, frequent blood draws, etc. -Intermittently requiring PRBC last 06/03/22. F/u Hb 7.3, limit routine labs. No evidence of hematuria, melena or hematochezia. Assessment & Plan (06/21/2022 3:23 PM GEOGRAPHIC INFORMATION SYSTEM ANALYST): Normocytic. AOCD pattern on labs. Likely from GIN, serious illness, frequent blood draws, etc. -Intermittently requiring PRBC last 06/03/22. F/u Hb 7.5, limit routine labs. Assessment & Plan (06/20/2022 6:09 PM GEOGRAPHIC INFORMATION SYSTEM ANALYST): Normocytic. AOCD pattern on labs. Likely from GIN, serious illness, frequent blood draws, etc. -Intermittently requiring PRBC last 06/03/21. F/u Hb 7.5, limit routine labs. Assessment & Plan (06/16/2022 11:57 AM GEOGRAPHIC INFORMATION SYSTEM ANALYST): Normocytic. AOCD pattern on labs. Likely from GIN, serious illness, frequent blood draws, etc. -Intermittently requiring PRBC last 06/03/21. Assessment & Plan (06/15/2022 1:22 PM GEOGRAPHIC INFORMATION SYSTEM ANALYST): Normocytic. AOCD pattern on labs. Likely from GIN, serious illness, frequent blood draws, etc. -Intermittently requiring PRBC last 06/03/21. Assessment & Plan (06/14/2022 2:26 PM GEOGRAPHIC INFORMATION SYSTEM ANALYST): Normocytic. AOCD pattern on labs. Likely from GIN, serious illness, frequent blood draws, etc. -Intermittently requiring PRBC last 06/03/21. F/u Hb 8.1. Assessment & Plan (06/13/2022 4:10 PM GEOGRAPHIC INFORMATION SYSTEM ANALYST): Normocytic. AOCD pattern on labs. Likely from GIN, serious illness, frequent blood draws, etc. -Intermittently requiring PRBC last 06/03/21. F/u Hb 8.1. Assessment & Plan (06/12/2022 6:17 PM GEOGRAPHIC INFORMATION SYSTEM ANALYST): Normocytic. AOCD pattern on labs. Likely from GIN, serious illness, frequent blood draws, etc. - intermittently requiring PRBC last 06/03/21. F/u Hb 8.1. Billing statement. I have reviewed current Hb 8.5, remains stable post recent transfusion with HD stability. Plan to limit blood draws, monitor serial counts for additional needs. Transfuse PRN Hb<7. Assessment & Plan (06/11/2022 4:33 PM GEOGRAPHIC INFORMATION SYSTEM ANALYST): Normocytic. AOCD pattern on labs. Likely from GIN, serious illness, frequent blood draws, etc. - intermittently requiring PRBC last 06/03/21. F/u Hb 8.1. Billing statement. I have reviewed current Hb 8.5, remains stable post recent transfusion with HD stability. Plan to limit blood draws, monitor serial counts for additional needs. Transfuse PRN Hb<7 Assessment & Plan (06/10/2022 3:23 PM GEOGRAPHIC INFORMATION SYSTEM ANALYST): Normocytic. AOCD pattern on labs. Likely from GIN, serious illness, frequent blood draws, etc. - intermittently requiring PRBC last 06/03/21. F/u Hb 8.1. Billing statement. I have reviewed current Hb 8.1, remains stable post recent transfusion with HD stability. Plan to limit blood draws, monitor serial counts for additional needs. Transfuse PRN Hb<7 Assessment & Plan (06/10/2022 9:24 AM GEOGRAPHIC INFORMATION SYSTEM ANALYST): Normocytic. AOCD pattern on labs. Likely from GIN, serious illness, frequent blood draws, etc. - intermittently requiring PRBC last 06/03/21. F/u Hb 8.1. Billing statement. I have reviewed current Hb 8.1, remains stable post recent transfusion with HD stability. Plan to limit blood draws, monitor serial counts for additional needs. Transfuse PRN Hb<7 Assessment & Plan (06/08/2022 4:02 PM GEOGRAPHIC INFORMATION SYSTEM ANALYST): Normocytic. AOCD pattern on labs. Likely from GIN, serious illness, frequent blood draws, etc. - intermittently requiring PRBC last 06/03/21. F/u Hb 8.1. Billing statement. I have reviewed current Hb 8.1, remains stable post recent transfusion with HD stability. Plan to limit blood draws, monitor serial counts for additional needs. Assessment & Plan (06/07/2022 11:00 AM GEOGRAPHIC INFORMATION SYSTEM ANALYST): Normocytic. AOCD pattern on labs. Likely from GIN, serious illness, frequent blood draws, etc. - intermittently requiring PRBC last 06/03/21 Billing statement. I have reviewed current Hb 8.1, remains stable post recent transfusion with HD stability. Plan to limit blood draws, monitor serial counts for additional needs. Assessment & Plan (06/06/2022 6:31 PM GEOGRAPHIC INFORMATION SYSTEM ANALYST): Normocytic. 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 - intermittently requiring PRBC last 06/03 Billing statement. I have reviewed current Hb 8.1, remains stable post transfusion. Plan to limit blood draws, monitor serial counts. Assessment & Plan (06/05/2022 2:00 PM GEOGRAPHIC INFORMATION SYSTEM ANALYST): - Normocytic. 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 - intermittently requiring PRBC last 06/03 Assessment & Plan (06/04/2022 11:09 AM GEOGRAPHIC INFORMATION SYSTEM ANALYST): - Normocytic. 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 - f/u CBC today p 1 unit PRBC 06/03 Assessment & Plan (06/03/2022 2:57 PM GEOGRAPHIC INFORMATION SYSTEM ANALYST): - Normocytic. 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 - requiring 1 unit PRBC today for slow drop likely AOCD and lab draws Assessment & Plan (06/02/2022 2:26 PM GEOGRAPHIC INFORMATION SYSTEM ANALYST): - Normocytic. 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 - cont to monitor H/H, transfuse for Hb < 7, remains relatively stable but at borderline of requiring PRBC Assessment & Plan (06/01/2022 2:18 PM GEOGRAPHIC INFORMATION SYSTEM ANALYST): - Normocytic. 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 - cont to monitor H/H, transfuse for Hb < 7, remains relatively stable but at borderline of requiring PRBC Assessment & Plan (05/31/2022 2:57 PM GEOGRAPHIC INFORMATION SYSTEM ANALYST): - Normocytic. 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 - cont to monitor H/H, transfuse for Hb < 7 Assessment & Plan (05/30/2022 2:03 PM GEOGRAPHIC INFORMATION SYSTEM ANALYST): - Normocytic. 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 - cont to monitor H/H, transfuse for Hb < 7 Assessment & Plan (05/29/2022 3:13 PM GEOGRAPHIC INFORMATION SYSTEM ANALYST): Normocytic. B12, folate normal. Likely from GIN, serious illness, frequent blood draws, etc. Drop over last 24 hrs likely dilutional due to IVF. No e/o bleeding - cont to monitor H/H, transfuse for Hb < 7 - ferritin high, c/w anemia of chronic dz Assessment & Plan (05/28/2022 1:53 PM GEOGRAPHIC INFORMATION SYSTEM ANALYST): Normocytic. B12, folate normal. Likely from GIN, serious illness, frequent blood draws, etc. Drop over last 24 hrs likely dilutional due to IVF. No e/o bleeding - cont to monitor H/H, transfuse for Hb < 7 - ferritin high, c/w anemia of chronic dz Assessment & Plan (05/27/2022 3:53 PM GEOGRAPHIC INFORMATION SYSTEM ANALYST): Normocytic. B12, folate normal. Likely from GIN, serious illness, frequent blood draws, etc. Drop over last 24 hrs likely dilutional due to IVF. No e/o bleeding - cont to monitor H/H, transfuse for Hb < 7 - ferritin high, c/w anemia of chronic dz Assessment & Plan (05/26/2022 1:22 PM GEOGRAPHIC INFORMATION SYSTEM ANALYST): Normocytic. B12, folate normal. Likely from GIN, [...] -Apparently can get denosumab but would need [employer] approval. Appreciate nephrology help sensipar not an [...] -Apparently can get denosumab but would need [employer] W[employer] approval. Appreciate nephrology help sensipar not an [...] status. Assessment & Plan (06/24/2022 5:06 PM GEOGRAPHIC INFORMATION SYSTEM ANALYST): Normocalcemic on arrival. Uncorrected Ca as high [...] -Apparently can get denosumab but would need [employer]OX [employer] W[employer]ER approval. Appreciate nephrology help sensipar not an [...] am. Assessment & Plan (06/23/2022 3:58 PM GEOGRAPHIC INFORMATION SYSTEM ANALYST): Normocalcemic on arrival. Uncorrected Ca as high [...] -Apparently can get denosumab but would need [employer]OX [employer] W[employer]ER approval. Appreciate nephrology help sensipar not an [...] 06/23. Assessment & Plan (06/22/2022 4:15 PM GEOGRAPHIC INFORMATION SYSTEM ANALYST): Normocalcemic on arrival. Uncorrected Ca as high [...] -Apparently can get denosumab but would need [employer]OX [employer] W[employer]ER approval. Appreciate nephrology help sensipar not an [...] iCa. Assessment & Plan (06/21/2022 3:27 PM GEOGRAPHIC INFORMATION SYSTEM ANALYST): Normocalcemic on arrival. Uncorrected Ca as high [...] -Apparently can get denosumab but would need [employer]OX [employer] W[employer]ER approval. Appreciate nephrology help sensipar not an [...] response. Assessment & Plan (06/20/2022 6:15 PM GEOGRAPHIC INFORMATION SYSTEM ANALYST): Normocalcemic on arrival. Uncorrected Ca as high [...] -Apparently can get denosumab but would need [employer] W[employer]ER approval. Appreciate nephrology help sensipar not an [...] approval. Assessment & Plan (06/16/2022 11:57 AM GEOGRAPHIC INFORMATION SYSTEM ANALYST): Normocalcemic on arrival. Uncorrected Ca as high [...] today Assessment & Plan (06/15/2022 1:22 PM GEOGRAPHIC INFORMATION SYSTEM ANALYST): Normocalcemic on arrival. Uncorrected Ca as high [...] low level hyperCa. Recommend continued NPO by [facility] [place] 06/08. - Continue water flushes per tube (300 q4). - Ca++ increased today: 12.1 (11.9). - if Cr continues to downtrend may be able to consider bisphosphonate. 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 - Cosyntropin test within normal limits, AI ruled out. Assessment & Plan (06/14/2022 2:26 PM GEOGRAPHIC INFORMATION SYSTEM ANALYST): Normocalcemic on arrival. Uncorrected Ca as high [...] low level hyperCa. Recommend continued NPO by [facility] 06/08. - Continue water flushes per tube (300 q4). - Ca++ increased today: 12.1 (11.9). - if Cr continues to downtrend may be able to consider bisphosphonate. 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 Recommending ordering cosyntropin to rule out adrenal insufficiency. Assessment & Plan (06/13/2022 4:03 PM GEOGRAPHIC INFORMATION SYSTEM ANALYST): Normocalcemic on arrival. Uncorrected Ca as high [...] low level hyperCa. Recommend continued NPO by [facility] [place] [place] 06/08. - Continue water flushes per tube (300 q4). - Ca++ decreased today: 11.9 (12.8). - if Cr continues to downtrend may be able to consider bisphosphonate. - Continue to monitor Assessment & Plan (06/12/2022 6:20 PM GEOGRAPHIC INFORMATION SYSTEM ANALYST): Normocalcemic on arrival. Uncorrected Ca as high [...] low level hyperCa. Recommend continued NPO by [facility] [place] [place] 06/08. - cont [...] supplementation. Assessment & Plan (06/11/2022 4:35 PM GEOGRAPHIC INFORMATION SYSTEM ANALYST): Normocalcemic on arrival. Uncorrected Ca as high [...] low level hyperCa. Recommend continued NPO by [facility] 06/08. - cont [...] supplementation. Assessment & Plan (06/10/2022 3:28 PM GEOGRAPHIC INFORMATION SYSTEM ANALYST): Normocalcemic on arrival. Uncorrected Ca as high [...] supplementation. Assessment & Plan (06/10/2022 9:27 AM GEOGRAPHIC INFORMATION SYSTEM ANALYST): Normocalcemic on arrival. Uncorrected Ca as high [...] level hyperCa. Advanced tolerance of PO by [facility] 06/08. - cont [...] and f/u lab - with stabilization. Plan OP consideration of sensipar 30mg PO daily and to continue hydration per tube, serial calcium monitoring, & avoid supplementation. Assessment & Plan (06/08/2022 4:09 PM GEOGRAPHIC INFORMATION SYSTEM ANALYST): Normocalcemic on arrival. Uncorrected Ca as high [...] level hyperCa. Advanced tolerance of PO by [facility] [place] 06/08. Start sensipar [...] and f/u lab 10-11 with stabilization. Plan sensipar 30mg PO daily and to continue hydration per tube, serial calcium monitoring, & avoid supplementation. Assessment & Plan (06/07/2022 11:04 AM GEOGRAPHIC INFORMATION SYSTEM ANALYST): Normocalcemic on arrival. Uncorrected Ca as high [...] supplementation. Assessment & Plan (06/06/2022 6:40 PM GEOGRAPHIC INFORMATION SYSTEM ANALYST): Normocalcemic on arrival. Uncorrected Ca as high [...] supplementation. Assessment & Plan (06/05/2022 1:59 PM GEOGRAPHIC INFORMATION SYSTEM ANALYST): - Normocalcemic on arrival. Uncorrected Ca as [...] now Assessment & Plan (06/04/2022 11:09 AM GEOGRAPHIC INFORMATION SYSTEM ANALYST): - Normocalcemic on arrival. Uncorrected Ca as [...] considered Assessment & Plan (06/03/2022 2:56 PM GEOGRAPHIC INFORMATION SYSTEM ANALYST): - Normocalcemic on arrival. Uncorrected Ca as [...] 11.4 Assessment & Plan (06/02/2022 2:25 PM GEOGRAPHIC INFORMATION SYSTEM ANALYST): - Normocalcemic on arrival. Uncorrected Ca as [...] IVF Assessment & Plan (06/01/2022 2:18 PM GEOGRAPHIC INFORMATION SYSTEM ANALYST): - Normocalcemic on arrival. Uncorrected Ca as [...] d/c Assessment & Plan (05/31/2022 2:57 PM GEOGRAPHIC INFORMATION SYSTEM ANALYST): - Normocalcemic on arrival. Uncorrected Ca as [...] stable/downtrending Assessment & Plan (05/30/2022 2:01 PM GEOGRAPHIC INFORMATION SYSTEM ANALYST): - Normocalcemic on arrival. Uncorrected Ca as [...] improve Assessment & Plan (05/29/2022 3:13 PM GEOGRAPHIC INFORMATION SYSTEM ANALYST): - Normocalcemic on arrival. Uncorrected Ca as [...] improve Assessment & Plan (05/28/2022 1:52 PM GEOGRAPHIC INFORMATION SYSTEM ANALYST): - Normocalcemic on arrival. Uncorrected Ca as [...] improve Assessment & Plan (05/27/2022 3:52 PM GEOGRAPHIC INFORMATION SYSTEM ANALYST): - Normocalcemic on arrival. Uncorrected Ca as [...] today Assessment & Plan (05/26/2022 1:19 PM GEOGRAPHIC INFORMATION SYSTEM ANALYST): - Normocalcemic on arrival. Uncorrected Ca as [...] IVF Assessment & Plan (05/27/2022 3:53 PM GEOGRAPHIC INFORMATION SYSTEM ANALYST): - Has been hypo- and hypernatremic during course Sodium now normal, cont to monitor daily BMP Assessment & Plan (05/26/2022 1:19 PM GEOGRAPHIC INFORMATION SYSTEM ANALYST): - Has been hypo- and hypernatremic during course Sodium now normal, cont to monitor daily BMP Cervical stenosis of spine 09/19/2021 Overview (09/19/2021): Added automatically from request for surgery [id number] Assessment & Plan (11/10/2022 9:33 AM CDT): [...] need NSGY clinic OP follow up at [place]; NSGY to arrange; Dr. Casas no longer at /[facility] Assessment & Plan (06/26/2022 5:11 PM CDT): Presented for elective C 3-5 ACDF and C3-7 posterior fusion on 03/17/22. Sutures out. NSurg f/u appreciated. Plan MRI c/t spine as above, assess for structural or occult infection (unlikely). Touch base with neurosurgery when imaging available Elevated ESR, CRP. Will need NSGY clinic OP follow up at [place]. Surgical incision healed well. No muscular spasticity [...] need NSGY clinic OP follow up at [place]. Surgical incision healed well. No muscular spasticity noted on LE exam. Bilateral strength intact. Therapy per neurosurgery, if able to participate, currently doesn't follow commands. Assessment & Plan (06/24/2022 5:04 PM GEOGRAPHIC INFORMATION SYSTEM ANALYST): Presented for elective C 3-5 ACDF and C3-7 posterior fusion on 03/17/22. Sutures out. NSurg f/u appreciated. Plan MRI c/t spine as above, assess for structural or occult infection (unlikely). Will need NSGY clinic OP follow up at [place]. Surgical incision healed well. No muscular spasticity noted on LE exam. Bilateral strength intact. Therapy per neurosurgery, if able to participate, currently doesn't follow commands. Assessment & Plan (06/23/2022 3:49 PM GEOGRAPHIC INFORMATION SYSTEM ANALYST): Presented for elective C 3-5 ACDF and C3-7 posterior fusion on 03/17/22. Sutures out. NSurg f/u appreciated. Will need NSGY clinic OP follow up at [place]. Surgical incision healed well. No muscular spasticity noted on LE exam. Bilateral strength intact. Therapy per neurosurgery, if able to participate, currently doesn't follow commands. Assessment & Plan (06/22/2022 4:10 PM GEOGRAPHIC INFORMATION SYSTEM ANALYST): Presented for elective C 3-5 ACDF and C3-7 posterior fusion on 03/17/22. Sutures out. Will need NSGY clinic OP follow up at [place]. Surgical incision healed well. No muscular spasticity noted on LE exam. Bilateral strength intact. Therapy per neurosurgery, if able to participate, currently doesn't follow commands. Assessment & Plan (06/21/2022 3:24 PM GEOGRAPHIC INFORMATION SYSTEM ANALYST): Presented for elective C 3-5 ACDF and C3-7 posterior fusion on 03/17/22. Sutures out. Will need NSGY clinic OP follow up at [place]. Surgical incision healed well. No muscular spasticity noted on LE exam. Therapy per neurosurgery, if able to participate. Assessment & Plan (06/20/2022 6:10 PM GEOGRAPHIC INFORMATION SYSTEM ANALYST): Presented for elective C 3-5 ACDF and C3-7 posterior fusion on 03/17/22. Sutures out. Will need NSGY clinic OP follow up at [place]. Surgical incision healed well. No muscular spasticity noted on LE exam. Therapy per neurosurgery, if able to participate. Assessment & Plan (06/16/2022 11:56 AM GEOGRAPHIC INFORMATION SYSTEM ANALYST): Presented for elective C 3-5 ACDF and C3-7 posterior fusion on 03/17/22. Sutures out. Will need NSGY clinic OP follow up at [place]. Surgical incision healed well. No muscular spasticity noted on LE exam. Therapy per neurosurgery, if able to participate. Assessment & Plan (06/15/2022 1:19 PM GEOGRAPHIC INFORMATION SYSTEM ANALYST): Presented for elective C 3-5 ACDF and C3-7 posterior fusion on 03/17/22. Sutures out. Will need NSGY clinic OP follow up at [place]. Surgical incision healed well. No muscular spasticity noted on LE exam. Therapy per neurosurgery, if able to participate. Assessment & Plan (06/14/2022 2:19 PM GEOGRAPHIC INFORMATION SYSTEM ANALYST): Presented for elective C 3-5 ACDF and C3-7 posterior fusion on 03/17/22. Sutures out. Will need NSGY clinic OP follow up at [place]. Surgical incision healed well. No muscular spasticity noted on LE exam. Therapy per neurosurgery, if able to participate. Assessment & Plan (06/13/2022 3:58 PM GEOGRAPHIC INFORMATION SYSTEM ANALYST): Presented for elective C 3-5 ACDF and C3-7 posterior fusion on 03/17/22. Sutures out. Will need NSGY clinic OP follow up at [place]. Surgical incision healed well. No muscular spasticity noted on LE exam. Therapy per neurosurgery, if able to participate. Assessment & Plan (06/12/2022 6:18 PM GEOGRAPHIC INFORMATION SYSTEM ANALYST): Presented for elective C 3-5 ACDF and C3-7 posterior fusion on 03/17/22. Sutures out. Will need NSGY clinic OP follow up at [place]. Surgical incision healed well. No muscular spasticity noted on LE exam. Therapy per neurosurgery, if able to participate. Plan DC to SNF once bed available. Assessment & Plan (06/11/2022 4:33 PM GEOGRAPHIC INFORMATION SYSTEM ANALYST): Presented for elective C 3-5 ACDF and C3-7 posterior fusion on 03/17/22. Sutures out. Will need NSGY clinic OP follow up at [place]. Surgical incision healed well. No muscular spasticity noted on exam. Therapy per neurosurgery. Plan DC to SNF once bed available. Assessment & Plan (06/10/2022 3:23 PM GEOGRAPHIC INFORMATION SYSTEM ANALYST): Presented for elective C 3-5 ACDF and C3-7 posterior fusion on 03/17/22. Sutures out. Will need NSGY clinic OP follow up at [place]. Surgical incision healing well. No muscular spasticity noted on exam. Therapy per neurosurgery. Plan DC to SNF once bed available. Assessment & Plan (06/10/2022 9:24 AM GEOGRAPHIC INFORMATION SYSTEM ANALYST): Presented for elective C 3-5 ACDF and C3-7 posterior fusion on 03/17/22. Sutures out. Will need NSGY clinic OP follow up at [place]. Surgical incision healing well. No muscular spasticity noted on exam. Therapy per neurosurgery. Plan DC to SNF Assessment & Plan (06/08/2022 3:56 PM GEOGRAPHIC INFORMATION SYSTEM ANALYST): Presented for elective C 3-5 ACDF and C3-7 posterior fusion on 03/17/22. Sutures out. Will need NSGY clinic OP follow up at [place]. Surgical incision healing well. No muscular spasticity noted on exam. Assessment & Plan (06/07/2022 10:57 AM GEOGRAPHIC INFORMATION SYSTEM ANALYST): Presented for elective C 3-5 ACDF and C3-7 posterior fusion on 03/17/22. Sutures out. Will need NSGY clinic OP follow up at [place]. Surgical incision healing well. No muscular spasticity noted on exam. Assessment & Plan (06/06/2022 6:33 PM GEOGRAPHIC INFORMATION SYSTEM ANALYST): Presented for elective C 3-5 ACDF and C3-7 posterior fusion on 03/17. Sutures out. Will need NSGY follow up at [place]. Surgical incision healing well. No muscular spasticity noted on exam. Assessment & Plan (06/05/2022 2:02 PM GEOGRAPHIC INFORMATION SYSTEM ANALYST): - Presented for elective C 3-5 ACDF and C3-7 posterior fusion on 03/17. Sutures out. Will need NSGY follow up at [place]. Assessment & Plan (05/31/2022 2:57 PM GEOGRAPHIC INFORMATION SYSTEM ANALYST): - Presented for elective C 3-5 ACDF and C3-7 posterior fusion on 03/17. Sutures out. Will need NSGY follow up at [place]. Assessment & Plan (05/30/2022 2:04 PM GEOGRAPHIC INFORMATION SYSTEM ANALYST): - Presented for elective C 3-5 ACDF and C3-7 posterior fusion on 03/17. Sutures out. Will need NSGY follow up at [place]. Assessment & Plan (05/29/2022 3:13 PM GEOGRAPHIC INFORMATION SYSTEM ANALYST): - Presented for elective C 3-5 ACDF and C3-7 posterior fusion on 03/17. Sutures out. Will need NSGY follow up at [place]. Assessment & Plan (05/28/2022 1:53 PM GEOGRAPHIC INFORMATION SYSTEM ANALYST): - Presented for elective C 3-5 ACDF and C3-7 posterior fusion on 03/17. Sutures out. Will need [place] follow up at [place]. Assessment & Plan (05/27/2022 3:53 PM GEOGRAPHIC INFORMATION SYSTEM ANALYST): - Presented for elective C 3-5 ACDF and C3-7 posterior fusion on 03/17. Sutures out. Will need [place] follow up at [place]. Assessment & Plan (05/25/2022 3:16 PM GEOGRAPHIC INFORMATION SYSTEM ANALYST): - Presented for elective C 3-5 ACDF and C3-7 posterior fusion on 03/17. Sutures out. Will need [place]GY follow up at [place]. Strangulated inguinal hernia 09/19/2021 Overview (04/09/2022): Added automatically from request for surgery [id number] Assessment & Plan (08/16/2022 5:36 PM CDT): [...] stranding. Assessment & Plan (06/23/2022 4:00 PM GEOGRAPHIC INFORMATION SYSTEM ANALYST): S/p ex lap and repair 04/09. Had evidence of intestinal ischemia. Well healed incision. -Still NPO, swallow study redone given his being more awake, but speech recommends continued NPO status. On J tube feeds. Assessment & Plan (06/22/2022 4:16 PM GEOGRAPHIC INFORMATION SYSTEM ANALYST): S/p ex lap and repair 04/09. Had evidence of intestinal ischemia. Well healed incision. -Still NPO, swallow study redone given his being more awake, but speech recommends continued NPO status. Assessment & Plan (06/21/2022 3:27 PM GEOGRAPHIC INFORMATION SYSTEM ANALYST): S/p ex lap and repair 04/09. Had evidence of intestinal ischemia. Well healed incision. -Still NPO, swallow study redone given his being more awake, but speech recommends continued NPO status. Assessment & Plan (06/20/2022 6:16 PM GEOGRAPHIC INFORMATION SYSTEM ANALYST): S/p ex lap and repair 04/09. Had evidence of intestinal ischemia. Well healed incision. -Still NPO, swallow study redone given his being more awake, but speech recommends continued NPO status. Assessment & Plan (06/16/2022 11:56 AM GEOGRAPHIC INFORMATION SYSTEM ANALYST): S/p ex lap and repair 04/09. Had evidence of intestinal ischemia. Well healed incision. -Tolerating TF at goal per Gtube. Nutritional needs appear to be getting met. -Remains NPO per speech follow up on 06/14. Ok to do ice chips. Assessment & Plan (06/15/2022 1:20 PM GEOGRAPHIC INFORMATION SYSTEM ANALYST): S/p ex lap and repair 04/09. Had evidence of intestinal ischemia. Well healed incision. -Tolerating TF at goal per Gtube. Nutritional needs appear to be getting met. -Remains NPO per speech follow up on 06/14. Ok to do ice chips. Assessment & Plan (06/14/2022 2:20 PM GEOGRAPHIC INFORMATION SYSTEM ANALYST): S/p ex lap and repair 04/09. Had evidence of intestinal ischemia. Well healed incision. -Tolerating TF at goal per Gtube. Nutritional needs appear to be getting met. -Remains NPO per speech follow up on 06/08. Ok to do ice chips. Assessment & Plan (06/13/2022 3:59 PM GEOGRAPHIC INFORMATION SYSTEM ANALYST): S/p ex lap and repair 04/09. Had evidence of intestinal ischemia. Well healed incision. -Tolerating TF at goal per Gtube. Nutritional needs appear to be getting met. -Remains NPO per speech follow up on 06/08. Assessment & Plan (06/12/2022 6:20 PM GEOGRAPHIC INFORMATION SYSTEM ANALYST): S/p ex lap and repair 04/09. Had evidence of intestinal ischemia. Well healed incision. - tolerating TF per Gtube. Nutritional needs appear to be getting met. -Remains NPO per speech f/u 06/08. Billing statement I have reviewed electrolytes, K 3.6, ca 12.5. Discussed with RN and no tube feed residuals. Plan strict aspiration precautions, further advance diet and adjust tube feeds per dry ice maker. Plan to recheck bed weight. Assessment & Plan (06/11/2022 4:35 PM GEOGRAPHIC INFORMATION SYSTEM ANALYST): S/p ex lap and repair 04/09. Had evidence of intestinal ischemia. Well healed incision. - tolerating TF per Gtube. Nutritional needs appear to be getting met. -Remains NPO per speech f/u 06/08. Billing statement I have reviewed electrolytes, K 3.6, ca 12.5. Discussed with RN and no tube feed residuals. Plan strict aspiration precautions, further advance diet and adjust tube feeds per dry ice maker. Plan to recheck bed weight. Assessment & Plan (06/10/2022 3:30 PM GEOGRAPHIC INFORMATION SYSTEM ANALYST): S/p ex lap and repair 04/09. Had evidence of intestinal ischemia. Well healed incision. - tolerating TF per Gtube. Nutritional needs appear to be getting met. -Remains NPO per speech f/u 06/08. Billing statement I have reviewed electrolytes, K 3.6, ca 12.8. Discussed with RN and no tube feed residuals. Plan strict aspiration precautions, further advance diet and adjust tube feeds per dry ice maker. Plan to recheck bed weight. Assessment & Plan (06/10/2022 9:27 AM GEOGRAPHIC INFORMATION SYSTEM ANALYST): S/p ex lap and repair 04/09. Had evidence of intestinal ischemia. Well healed incision. - tolerating TF per Gtube. Nutritional needs appear to be getting met. - ADAT per speech. Billing statement I have reviewed electrolytes, K 3.3, ca 10.6. Discussed with RN and no tube feed residuals. Plan strict aspiration precautions, further advance diet and adjust tube feeds per dry ice maker. Plan to recheck bed weight. Assessment & Plan (06/08/2022 4:11 PM GEOGRAPHIC INFORMATION SYSTEM ANALYST): S/p ex lap and repair 04/09. Had evidence of intestinal ischemia. Well healed incision. - tolerating TF per Gtube. Nutritional needs appear to be getting met. - ADAT per speech. Billing statement I have reviewed electrolytes, K 3.3, ca 10.6. Discussed with RN and no tube feed residuals. Plan further advance diet and adjust tube feeds per dry ice maker. Plan to recheck bed weight. Assessment & Plan (06/07/2022 11:08 AM GEOGRAPHIC INFORMATION SYSTEM ANALYST): S/p ex lap and repair 04/09. Had [...] weight. Assessment & Plan (06/06/2022 6:41 PM GEOGRAPHIC INFORMATION SYSTEM ANALYST): - S/p ex lap and repair 04/09. Had evidence of intestinal ischemia. Well healed incision. - tolerating TF per Gtube. - NPO per speech. Billing statement I have reviewed electrolytes, K 3.3, ca 10.6. Discussed with RN and no tube feed residuals. Plan to continue tube feeds at current rate. Assessment & Plan (06/05/2022 2:01 PM GEOGRAPHIC INFORMATION SYSTEM ANALYST): - S/p ex lap and repair 04/09. Had evidence of intestinal ischemia. Well healed incision. - tolerating TF - NPO per speech Assessment & Plan (06/04/2022 11:09 AM GEOGRAPHIC INFORMATION SYSTEM ANALYST): - S/p ex lap and repair 04/09. Had evidence of intestinal ischemia. Well healed incision. - tolerating TF - NPO per speech Assessment & Plan (06/02/2022 2:26 PM GEOGRAPHIC INFORMATION SYSTEM ANALYST): - S/p ex lap and repair 04/09. Had evidence of intestinal ischemia. Well healed incision. - tolerating TF - NPO per speech Assessment & Plan (06/01/2022 2:18 PM GEOGRAPHIC INFORMATION SYSTEM ANALYST): - S/p ex lap and repair 04/09. Had evidence of intestinal ischemia. Well healed incision. - tolerating TF - NPO per speech Assessment & Plan (05/31/2022 2:57 PM GEOGRAPHIC INFORMATION SYSTEM ANALYST): - S/p ex lap and repair 04/09. Had evidence of intestinal ischemia. Well healed incision. - tolerating TF - NPO per speech Assessment & Plan (05/30/2022 2:04 PM GEOGRAPHIC INFORMATION SYSTEM ANALYST): - S/p ex lap and repair 04/09. Had evidence of intestinal ischemia. Well healed incision. - tolerating TF - NPO 2/2 mental status Assessment & Plan (05/29/2022 3:13 PM GEOGRAPHIC INFORMATION SYSTEM ANALYST): - S/p ex lap and repair 04/09. Had evidence of intestinal ischemia. Well healed incision. Assessment & Plan (05/28/2022 1:53 PM GEOGRAPHIC INFORMATION SYSTEM ANALYST): - S/p ex lap and repair 04/09. Had evidence of intestinal ischemia. Well healed incision. Assessment & Plan (05/27/2022 3:53 PM GEOGRAPHIC INFORMATION SYSTEM ANALYST): - S/p ex lap and repair 04/09. Had evidence of intestinal ischemia. Well healed incision. Assessment & Plan (05/25/2022 3:17 PM GEOGRAPHIC INFORMATION SYSTEM ANALYST): - S/p ex lap and repair 04/09. Had evidence of intestinal ischemia. Well healed incision. Age-related osteoporosis wit hout current pathological fracture 08/23/2021 Assessment & Plan (10/25/2021 3:35 PM CDT): Not well controlled, patient also has hypo vitamin-D Will start alendronate 70 mg weekly Continue ergocalciferol 19632 units weekly Ensure calcium approximately 1000 mg [...] (01/27/2021): Added automatically from request for surgery [id number] Bilateral primary osteoarthritis of knee 021 Assessment [...] ambulation Assessment & Plan (04/29/2021 11:06 AM GEOGRAPHIC INFORMATION SYSTEM ANALYST): Stable, patient reports occasional episodes of vertigo, [...] Stable. Assessment & Plan (06/24/2022 5:04 PM GEOGRAPHIC INFORMATION SYSTEM ANALYST): History of COPD. Managed with Budesonide nebs and PRN albuterol. Prior exacerbation treatment this stay, currently controlled. Currently on RA, no wheezing. Unable to follow commands for MDI, continue nebulizers with RT and doing well. Stable. Assessment & Plan (06/23/2022 3:49 PM GEOGRAPHIC INFORMATION SYSTEM ANALYST): History of COPD. Managed with Budesonide nebs and PRN albuterol. Prior exacerbation treatment this stay, currently controlled. Currently on RA, no wheezing. -Unable to follow commands for MDI, continue nebulizers with RT and doing well. Assessment & Plan (06/22/2022 4:10 PM GEOGRAPHIC INFORMATION SYSTEM ANALYST): History of COPD. Managed with Budesonide nebs and PRN albuterol. Prior exacerbation treatment this stay, currently controlled. Currently on RA, no wheezing. -Unable to follow commands for MDI, continue nebulizers and doing well. Assessment & Plan (06/21/2022 3:24 PM GEOGRAPHIC INFORMATION SYSTEM ANALYST): History of COPD. Managed with Budesonide nebs and PRN albuterol. Prior exacerbation treatment this stay, currently controlled. Currently on RA, no wheezing. -Unable to follow commands for MDI, continue nebs. Doing well. Assessment & Plan (06/20/2022 6:10 PM GEOGRAPHIC INFORMATION SYSTEM ANALYST): History of COPD. Managed with Budesonide nebs and PRN albuterol. Prior exacerbation treatment this stay, currently controlled. Currently on RA, no wheezing. -Unable to follow commands for MDI, continue nebs. Doing well. Assessment & Plan (06/16/2022 11:50 AM GEOGRAPHIC INFORMATION SYSTEM ANALYST): History of COPD. Managed with Budesonide nebs and PRN albuterol. Prior exacerbation treatment this stay, currently controlled. Currently on RA, no wheezing. -Unable to follow commands for MDI, continue nebs. Assessment & Plan (06/15/2022 1:18 PM GEOGRAPHIC INFORMATION SYSTEM ANALYST): History of COPD. Managed with Budesonide nebs and PRN albuterol. Prior exacerbation treatment this stay, currently controlled. Currently on RA, no wheezing. -Unable to follow commands for MDI, continue nebs. Assessment & Plan (06/14/2022 2:19 PM GEOGRAPHIC INFORMATION SYSTEM ANALYST): History of COPD. Managed with Budesonide nebs and PRN albuterol. Prior exacerbation treatment this stay, currently controlled. Currently on RA, no wheezing. -Unable to follow commands for MDI, continue nebs. Assessment & Plan (06/13/2022 3:55 PM GEOGRAPHIC INFORMATION SYSTEM ANALYST): History of COPD. Managed with Budesonide nebs and PRN albuterol. Prior exacerbation treatment this stay, currently controlled. Currently on RA, no wheezing. -Unable to follow commands for MDI, continue nebs. Assessment & Plan (06/12/2022 6:18 PM GEOGRAPHIC INFORMATION SYSTEM ANALYST): Hx COPD. Managed Budesonide nebs and PRN [...] plan. Assessment & Plan (06/11/2022 4:33 PM GEOGRAPHIC INFORMATION SYSTEM ANALYST): Hx COPD. Managed Budesonide nebs and PRN [...] plan. Assessment & Plan (06/10/2022 3:24 PM GEOGRAPHIC INFORMATION SYSTEM ANALYST): Hx COPD. Managed Budesonide nebs and PRN albuterol. Prior exacerbation treatment this stay, currently controlled On 2L-RA. Unable to follow commands for MDI, continue nebs. Billing statement Reviewed O2 requirements last 24hrs and recent chest imaging, exam without wheezing but encephalopathy limits use of MDIs. Plan to continue nebs as prescribed. No change in current plan. Assessment & Plan (06/10/2022 9:25 AM GEOGRAPHIC INFORMATION SYSTEM ANALYST): Hx COPD. Managed Budesonide nebs and PRN albuterol. Prior exacerbation treatment this stay, currently controlled On 2L-RA. Billing statement Reviewed O2 requirements last 24hrs and recent chest imaging, exam without wheezing but encephalopathy limits use of MDIs. Plan to continue nebs as prescribed. No change in current plan. Assessment & Plan (06/08/2022 4:03 PM GEOGRAPHIC INFORMATION SYSTEM ANALYST): Hx COPD. Managed Budesonide nebs and PRN albuterol. Prior exacerbation treatment this stay, currently controlled On 2L-RA. Billing statement Reviewed O2 requirements last 24hrs and recent chest imaging, exam without wheezing but encephalopathy limits use of MDIs. Plan to continue nebs as prescribed. Assessment & Plan (06/07/2022 11:02 AM GEOGRAPHIC INFORMATION SYSTEM ANALYST): - Budesonide nebs and PRN albuterol. Prior exacerbation treatment this stay, currently controlled On RA Billing statement Reviewed O2 requirements last 24hrs and recent chest imaging, exam without wheezing but encephalopathy limits use of MDIs. Plan to continue nebs as prescribed. Assessment & Plan (06/06/2022 6:34 PM GEOGRAPHIC INFORMATION SYSTEM ANALYST): - Budesonide nebs and PRN albuterol. Prior exacerbation treatment this stay, currently controlled On RA Billing statement Reviewed O2 requirements and recent chest imaging. Plan DC continuous O2 sat monitoring. Assessment & Plan (06/05/2022 2:02 PM GEOGRAPHIC INFORMATION SYSTEM ANALYST): - Budesonide nebs and PRN albuterol. Prior exacerbation treatment this stay, currently controlled On RA Assessment & Plan (05/30/2022 2:04 PM GEOGRAPHIC INFORMATION SYSTEM ANALYST): - Budesonide nebs and PRN albuterol. Prior exacerbation treatment this stay, currently controlled On RA Assessment & Plan (05/29/2022 3:13 PM GEOGRAPHIC INFORMATION SYSTEM ANALYST): - Budesonide nebs and PRN albuterol. Prior exacerbation treatment this stay, currently controlled On RA Assessment & Plan (05/28/2022 1:53 PM GEOGRAPHIC INFORMATION SYSTEM ANALYST): - Budesonide nebs and PRN albuterol. Prior exacerbation treatment this stay, currently controlled On RA Assessment & Plan (05/27/2022 3:53 PM GEOGRAPHIC INFORMATION SYSTEM ANALYST): - Budesonide nebs and PRN albuterol. Prior exacerbation treatment this stay, currently controlled On RA Assessment & Plan (05/26/2022 1:17 PM GEOGRAPHIC INFORMATION SYSTEM ANALYST): - Budesonide nebs and PRN albuterol. Prior [...] Ellipta Assessment & Plan (06/07/2021 4:52 PM GEOGRAPHIC INFORMATION SYSTEM ANALYST): Stable, well controlled; quit smoking approximately 24 years ago Active in pulmonary rehab, walking for up to 60 minutes at a time new line rare use of rescue inhaler Continue Trelegy Ellipta 1 puff daily Assessment & Plan (04/29/2021 11:07 AM GEOGRAPHIC INFORMATION SYSTEM ANALYST): Stable, well controlled; patient reports he does get dyspneic especially significant exertion Follows with pulmonology for management Continue Trelegy Ellipta 1 puff daily, albuterol p.r.n. for dyspnea Assessment & Plan (02/21/2021 8:31 PM GEOGRAPHIC INFORMATION SYSTEM ANALYST): Continues to have significant cough, barking cough; [...] daily Assessment & Plan (06/07/2021 4:51 PM GEOGRAPHIC INFORMATION SYSTEM ANALYST): Stable, well controlled; continue to monitor Assessment & Plan (04/29/2021 11:07 AM GEOGRAPHIC INFORMATION SYSTEM ANALYST): Stable, well controlled; patient reports occasional episodes of nocturia x1 Continue finasteride 5 mg daily Assessment & Plan (05/06/2020 12:57 PM GEOGRAPHIC INFORMATION SYSTEM ANALYST): Patient does report increased urine frequency. UA [...] issues. Assessment & Plan (05/06/2020 12:56 PM GEOGRAPHIC INFORMATION SYSTEM ANALYST): Continue meclizine prn. Assessment & Plan (04/08/2020 3:22 AM GEOGRAPHIC INFORMATION SYSTEM ANALYST): Patient feels ataxic but [id number] and [id number] were normal. MRI is pending. Neurology has been consulted. Meclizine has not helped. Fall precautions. May need PT after MRI is completed. Assessment & Plan (04/07/2020 1:52 PM GEOGRAPHIC INFORMATION SYSTEM ANALYST): With new lethargy, orthostatic hypotension- I believe [...] 03/04/2019 Assessment & Plan (03/04/2019 2:55 PM GEOGRAPHIC INFORMATION SYSTEM ANALYST): Will do emg/ncs . Recommended cock-up wrist [...] monitor. Assessment & Plan (06/24/2022 5:05 PM GEOGRAPHIC INFORMATION SYSTEM ANALYST): Continue amlodipine 10 mg daily. Discontinued home HCTZ on admit. On coreg and uptitrated to 25 BID on 06/05/22. Volume stable off dialysis. No peripheral edema. -Mostly normotensive, will continue to monitor. Assessment & Plan (06/23/2022 3:49 PM GEOGRAPHIC INFORMATION SYSTEM ANALYST): Continue amlodipine 10 mg daily. Discontinued home HCTZ on admit. On coreg and uptitrated to 25 BID on 06/05/22. Volume stable off dialysis. -Mostly normotensive, will continue to monitor. Assessment & Plan (06/22/2022 4:11 PM GEOGRAPHIC INFORMATION SYSTEM ANALYST): Continue amlodipine 10 mg daily. Discontinued home HCTZ on admit. On coreg and uptitrated to 25 BID on 06/05/22. Volume stable off dialysis. -Mostly normotensive, will continue to monitor. Assessment & Plan (06/21/2022 3:25 PM GEOGRAPHIC INFORMATION SYSTEM ANALYST): Continue amlodipine 10 mg daily. Discontinued home HCTZ on admit. On coreg and uptitrated to 25 BID on 06/05. Volume stable. -Mostly normotensive, will continue to monitor. Assessment & Plan (06/20/2022 6:10 PM GEOGRAPHIC INFORMATION SYSTEM ANALYST): -Continue amlodipine 10 mg daily -Continue coreg. Uptitrated coreg 25 BID on 06/05. Volume stable. -Mostly normotensive, will continue to monitor. Assessment & Plan (06/16/2022 11:50 AM GEOGRAPHIC INFORMATION SYSTEM ANALYST): -Continue amlodipine 10 mg daily -Continue coreg. Uptitrated coreg 25 BID on 06/05. -Mostly normotensive, will continue to monitor. Assessment & Plan (06/15/2022 1:17 PM GEOGRAPHIC INFORMATION SYSTEM ANALYST): -Continue amlodipine 10 mg daily -Continue coreg. Uptitrated coreg 25 BID on 06/05. -Mostly normotensive, will continue to monitor. Assessment & Plan (06/14/2022 2:19 PM GEOGRAPHIC INFORMATION SYSTEM ANALYST): -Continue amlodipine 10 mg daily -Continue coreg. Uptitrated coreg 25 BID on 06/05. -Mostly normotensive, will continue to monitor. Assessment & Plan (06/13/2022 3:54 PM GEOGRAPHIC INFORMATION SYSTEM ANALYST): -Continue amlodipine 10 mg daily -Continue coreg. Uptitrated coreg 25 BID on 06/05. -Mostly normotensive, will continue to monitor. Assessment & Plan (06/12/2022 6:19 PM GEOGRAPHIC INFORMATION SYSTEM ANALYST): Cont amlodipine, coreg, uptitrated coreg to 25 bid given persistent HTN 06/05. Improved trend, continue dosing at this level. Billing statement Plan continue dual agent control. Plan monitor renal function as OP. Assessment & Plan (06/11/2022 4:34 PM GEOGRAPHIC INFORMATION SYSTEM ANALYST): Cont amlodipine, coreg, uptitrated coreg to 25 bid given persistent HTN 06/05. Improved trend, continue dosing at this level. Billing statement Plan continue dual agent control. Plan monitor renal function. Assessment & Plan (06/10/2022 3:25 PM GEOGRAPHIC INFORMATION SYSTEM ANALYST): Cont amlodipine, coreg, uptitrated coreg to 25 bid given persistent HTN 06/05. Improved trend, continue dosing at this level. Billing statement Plan continue dual agent control. Plan monitor renal function. Assessment & Plan (06/10/2022 9:25 AM GEOGRAPHIC INFORMATION SYSTEM ANALYST): Cont amlodipine, coreg, uptitrated coreg to 25 bid given persistent HTN 2/20. Improved trend, continue dosing at this level. Billing statement Plan continue dual agent control. Assessment & Plan (06/08/2022 4:04 PM GEOGRAPHIC INFORMATION SYSTEM ANALYST): Cont amlodipine, coreg, uptitrated coreg to 25 bid given persistent HTN 2/20. Improved trend, continue dosing at this level. Billing statement Plan dual agent control. Assessment & Plan (06/07/2022 11:03 AM GEOGRAPHIC INFORMATION SYSTEM ANALYST): Cont amlodipine, coreg, uptitrated coreg to 25 bid given persistent HTN 2/20. Improved trend, continue dosing at this level. Assessment & Plan (06/06/2022 6:35 PM GEOGRAPHIC INFORMATION SYSTEM ANALYST): Cont amlodipine, coreg, uptitrated coreg to 25 bid given persistent HTN 2/20. Improved trend, will hold dosing at this level. Assessment & Plan (06/05/2022 2:02 PM GEOGRAPHIC INFORMATION SYSTEM ANALYST): Cont amlodipine, coreg, uptitrated coreg to 25 bid given persistent HTN 2/20 Assessment & Plan (05/30/2022 2:05 PM GEOGRAPHIC INFORMATION SYSTEM ANALYST): Cont amlodipine, coreg Assessment & Plan (05/29/2022 3:13 PM GEOGRAPHIC INFORMATION SYSTEM ANALYST): Cont current meds Assessment & Plan (05/28/2022 1:53 PM GEOGRAPHIC INFORMATION SYSTEM ANALYST): Cont current meds Assessment & Plan (05/27/2022 3:53 PM GEOGRAPHIC INFORMATION SYSTEM ANALYST): Cont current meds Assessment & Plan (05/26/2022 1:17 PM GEOGRAPHIC INFORMATION SYSTEM ANALYST): Cont current meds Assessment & Plan (12/20/2021 [...] mg Assessment & Plan (06/07/2021 4:50 PM GEOGRAPHIC INFORMATION SYSTEM ANALYST): Stable, well controlled; blood pressure at target today Continue hydrochlorothiazide 25 mg daily Assessment & Plan (04/29/2021 11:04 AM GEOGRAPHIC INFORMATION SYSTEM ANALYST): Controlled; blood pressure at target Continue amlodipine 10 mg, to chlorothiazide 25 mg, losartan 100 mg Assessment & Plan (07/20/2020 7:39 AM CDT): Rechecked in office and was 136/78. Will continue to monitor. May need to change medication. Pt also sees cardiology. Will see him back next month and will recheck Assessment & Plan (05/06/2020 12:55 PM GEOGRAPHIC INFORMATION SYSTEM ANALYST): Presented with elevated BP. Presently well controlled. Continue home Amlodipine and Losartan. HCTZ is on hold as patient is currently on iv fluids. Assessment & Plan (04/08/2020 3:18 AM GEOGRAPHIC INFORMATION SYSTEM ANALYST): Amlodipine and losartan have been resumed with hold parameters. Holding hydrochlorothiazide as it can cause vertigo. Assessment & Plan (03/24/2020 8:24 AM GEOGRAPHIC INFORMATION SYSTEM ANALYST): Blood pressure is adequately controlled on current [...] recommended. Assessment & Plan (06/07/2021 4:51 PM GEOGRAPHIC INFORMATION SYSTEM ANALYST): Stable, well controlled; continue sertraline 100 mg [...] change. Assessment & Plan (05/06/2020 12:54 PM GEOGRAPHIC INFORMATION SYSTEM ANALYST): Continue home Prozac. Mood is stable at this time. Assessment & Plan (04/08/2020 3:18 AM GEOGRAPHIC INFORMATION SYSTEM ANALYST): Continue SSRI Assessment & Plan (03/24/2020 8:24 AM GEOGRAPHIC INFORMATION SYSTEM ANALYST): Stable on current medication. Continue fluoxetine as [...] mg Assessment & Plan (06/07/2021 4:50 PM GEOGRAPHIC INFORMATION SYSTEM ANALYST): Stable, well controlled; no side effects from current medication Continue rosuvastatin 40 mg daily Assessment & Plan (04/29/2021 11:05 AM GEOGRAPHIC INFORMATION SYSTEM ANALYST): Stable, well controlled LDL less than 100; continues to have elevated ASCVD risk score 24.8% Continue rosuvastatin 40 mg daily, good blood pressure control Assessment & Plan (05/06/2020 12:54 PM GEOGRAPHIC INFORMATION SYSTEM ANALYST): Continue home statin Assessment & Plan (04/08/2020 3:18 AM GEOGRAPHIC INFORMATION SYSTEM ANALYST): Continue Crestor Assessment & Plan (03/24/2020 8:24 AM GEOGRAPHIC INFORMATION SYSTEM ANALYST): Lipid abnormalities are stable, reviewed previous lipid [...] 03/18/2023 Assessment & Plan (06/17/2022 5:35 PM GEOGRAPHIC INFORMATION SYSTEM ANALYST): New dx after mild coughing noted and then called in 05/29 to note she tested positive at home. Remdesivir x 3 doses. No hypoxia/fever. COVID RECOVERED Assessment & Plan (06/16/2022 11:58 AM GEOGRAPHIC INFORMATION SYSTEM ANALYST): New dx after mild coughing noted and then called in 05/29 to note she tested positive at home. Remdesivir x 3 doses. No hypoxia/fever. COVID RECOVERED Assessment & Plan (06/15/2022 1:22 PM GEOGRAPHIC INFORMATION SYSTEM ANALYST): New dx after mild coughing noted and then called in 05/29 to note she tested positive at home. Remdesivir x 3 doses. No hypoxia/fever. COVID RECOVERED Assessment & Plan (06/14/2022 2:26 PM GEOGRAPHIC INFORMATION SYSTEM ANALYST): New dx after mild coughing noted and then called in 05/29 to note she tested positive at home. Remdesivir x 3 doses. No hypoxia/fever. COVID RECOVERED Assessment & Plan (06/13/2022 4:14 PM GEOGRAPHIC INFORMATION SYSTEM ANALYST): New dx after mild coughing noted and then called in 05/29 to note she tested positive at home. Remdesivir x 3 doses. No hypoxia/fever. COVID RECOVERED Assessment & Plan (06/12/2022 6:19 PM GEOGRAPHIC INFORMATION SYSTEM ANALYST): - new dx after mild coughing noted [...] SNF. Assessment & Plan (06/11/2022 4:34 PM GEOGRAPHIC INFORMATION SYSTEM ANALYST): - new dx after mild coughing noted [...] hospital policy 06/10, awaiting private room at [facility]. Assessment & Plan (06/10/2022 3:25 PM GEOGRAPHIC INFORMATION SYSTEM ANALYST): - new dx after mild coughing noted [...] SNF. Assessment & Plan (06/10/2022 9:25 AM GEOGRAPHIC INFORMATION SYSTEM ANALYST): - new dx after mild coughing noted [...] per hospital policy, awaiting private room at [facility]. Assessment & Plan (06/08/2022 4:04 PM GEOGRAPHIC INFORMATION SYSTEM ANALYST): - new dx after mild coughing noted [...] per hospital policy, awaiting private room at [facility]. Assessment & Plan (06/07/2022 11:03 AM GEOGRAPHIC INFORMATION SYSTEM ANALYST): - new dx after mild coughing noted [...] per hospital policy, awaiting private room at [facility]. Assessment & Plan (06/06/2022 6:33 PM GEOGRAPHIC INFORMATION SYSTEM ANALYST): - new dx after mild coughing noted [...] policy. Assessment & Plan (06/05/2022 1:56 PM GEOGRAPHIC INFORMATION SYSTEM ANALYST): - new dx after mild coughing noted and then called in 05/29 to note she tested positive at home - given high risk for worsening and has mild cough gave remdesivir x 3 doses - remains on isolation (05/30 day 1) - anticipate 10 days - thus far no hypoxia/fever, still having intermittent cough Assessment & Plan (06/04/2022 11:00 AM GEOGRAPHIC INFORMATION SYSTEM ANALYST): - new dx after mild coughing noted and then called in 05/29 to note she tested positive at home - given high risk for worsening and has mild cough gave remdesivir x 3 doses - remains on isolation (05/30 day 1) - anticipate 10 days - thus far no hypoxia/fever and cough slowly improving Assessment & Plan (06/03/2022 2:56 PM GEOGRAPHIC INFORMATION SYSTEM ANALYST): - new dx after mild coughing noted and then called in 05/29 to note she tested positive at home - given high risk for worsening and has mild cough gave remdesivir x 3 doses - cough seems to be improving today, remains on isolation (05/30 day 1) - monitor for hypoxia/fever Assessment & Plan (06/02/2022 2:25 PM GEOGRAPHIC INFORMATION SYSTEM ANALYST): - new dx after mild coughing noted and then called in 05/29 to note she tested positive at home - given high risk for worsening and has mild cough gave remdesivir x 3 doses - thus far still coughing, had one cough induced emesis event 06/01 PM - monitor for hypoxia/fever Assessment & Plan (06/01/2022 2:17 PM GEOGRAPHIC INFORMATION SYSTEM ANALYST): - new dx after mild coughing noted and then called in 05/29 to note she tested positive at home - given high risk for worsening and has mild cough gave remdesivir x 3 doses which he finishes today; no further complication as of now - monitor for hypoxia, currently on RA Assessment & Plan (05/31/2022 2:56 PM GEOGRAPHIC INFORMATION SYSTEM ANALYST): - new dx after mild coughing noted and then called in 05/29 to note she tested positive at home - given high risk for worsening and has mild cough will complete Remdesivir 200 mg x1 then 100 mg x 2 additional doses (completes 06/01) - monitor for hypoxia, currently on RA Assessment & Plan (05/30/2022 1:59 PM GEOGRAPHIC INFORMATION SYSTEM ANALYST): - new dx after mild coughing noted and then called in last night to note she tested positive at home - given high risk for worsening and has mild cough will start Remdesivir 200 mg x1 then 100 mg x 2 additional doses - monitor for hypoxia, currently on RA Transaminitis 05/30/2022 06/17/2022 Assessment & Plan (06/17/2022 5:35 PM GEOGRAPHIC INFORMATION SYSTEM ANALYST): Mild increase noted when diagnosed with Covid. Statin held. Now resolved. -Continue Crestor 10mg Assessment & Plan (06/16/2022 11:58 AM GEOGRAPHIC INFORMATION SYSTEM ANALYST): Mild increase noted when diagnosed with Covid. Statin held. Now resolved. -Continue Crestor 10mg Assessment & Plan (06/15/2022 1:23 PM GEOGRAPHIC INFORMATION SYSTEM ANALYST): Mild increase noted when diagnosed with Covid. Statin held. Now resolved. -Re-starting Crestor 10mg Assessment & Plan (06/14/2022 2:26 PM GEOGRAPHIC INFORMATION SYSTEM ANALYST): Mild increase noted when diagnosed with Covid. Statin held. Now resolved. -Re-starting Crestor 10mg Assessment & Plan (06/13/2022 4:19 PM GEOGRAPHIC INFORMATION SYSTEM ANALYST): Mild increase noted when diagnosed with Covid. Statin held. Now resolved. -Re-starting Crestor 10mg Assessment & Plan (06/05/2022 2:01 PM GEOGRAPHIC INFORMATION SYSTEM ANALYST): - mild noted on recent labs, ?05/18 covid - still mild uptrend - holding statin as well in meantime, reviewed med list and rest of meds aren't big offenders for LFT issues Assessment & Plan (06/03/2022 2:57 PM GEOGRAPHIC INFORMATION SYSTEM ANALYST): - mild noted on recent labs, ?viral vs. Other >meds - cont to hold statin and monitor > mildly better today, cont to watch Assessment & Plan (06/02/2022 2:26 PM GEOGRAPHIC INFORMATION SYSTEM ANALYST): - mild noted on recent labs, ?viral vs. Other >meds - cont to hold statin and monitor Assessment & Plan (06/01/2022 2:19 PM GEOGRAPHIC INFORMATION SYSTEM ANALYST): - mild noted on recent labs, ?viral vs. Other >meds - still mildly worsening so will hold statin at this point and observe course Assessment & Plan (05/31/2022 2:58 PM GEOGRAPHIC INFORMATION SYSTEM ANALYST): - mild noted on recent labs, ?viral [...] monitoring. Assessment & Plan (06/24/2022 5:02 PM GEOGRAPHIC INFORMATION SYSTEM ANALYST): R femoral v DVT noted on US 05/08. No pitting edema appreciated on RLE. Plan: Continue Apixaban 5 BID. Monitoring serial blood counts and Hb remains stable on serial monitoring. Assessment & Plan (06/23/2022 3:48 PM GEOGRAPHIC INFORMATION SYSTEM ANALYST): R femoral v DVT noted on US 05/08. No pitting edema appreciated on RLE. Plan: - Continue Apixaban 5 BID. Monitoring serial blood counts and Hb remains stable on serial monitoring. Assessment & Plan (06/22/2022 4:07 PM GEOGRAPHIC INFORMATION SYSTEM ANALYST): R femoral v DVT noted on US 05/08. No pitting edema appreciated on RLE. - Continue Apixaban 5 BID. Monitoring serial blood counts and Hb remains stable. Assessment & Plan (06/21/2022 3:22 PM GEOGRAPHIC INFORMATION SYSTEM ANALYST): R femoral v DVT noted on US 05/08. No pitting edema appreciated on RLE. - Continue Apixaban 5 BID. Monitoring serial blood counts and remains stable. Assessment & Plan (06/20/2022 6:08 PM GEOGRAPHIC INFORMATION SYSTEM ANALYST): R femoral v DVT noted on US 05/08. No pitting edema appreciated on RLE. - Continue Apixaban 5 BID. Assessment & Plan (06/16/2022 12:00 PM GEOGRAPHIC INFORMATION SYSTEM ANALYST): R femoral v DVT noted on US 05/08. No pitting edema appreciated on RLE. - Continue Apixaban 5 BID Assessment & Plan (06/15/2022 1:23 PM GEOGRAPHIC INFORMATION SYSTEM ANALYST): R femoral v DVT noted on US 05/08. No pitting edema appreciated on RLE. - Continue Apixaban 5 BID Assessment & Plan (06/14/2022 2:26 PM GEOGRAPHIC INFORMATION SYSTEM ANALYST): R femoral v DVT noted on US 05/08. No pitting edema appreciated on RLE. - Continue Apixaban 5 BID Assessment & Plan (06/13/2022 4:20 PM GEOGRAPHIC INFORMATION SYSTEM ANALYST): R femoral v DVT noted on US 05/08. No pitting edema appreciated on RLE. - Continue Apixaban 5 BID Assessment & Plan (06/12/2022 6:16 PM GEOGRAPHIC INFORMATION SYSTEM ANALYST): R femoral v DVT noted on US 05/08. Treating with apixaban 5 bid No pitting edema appreciated on RLE. F/u Hb 8.5 on anticoagulation. Billing statement Personally reviewed doppler results with RLE DVT and agree with continued plan for apixiban therapy for acute DVT for 3mo duration (triggered). Assessment & Plan (06/11/2022 4:32 PM GEOGRAPHIC INFORMATION SYSTEM ANALYST): R femoral v DVT noted on US 05/08. Treating with apixaban 5 bid No pitting edema appreciated on RLE. F/u Hb 8.5 on anticoagulation. Billing statement Personally reviewed doppler results with RLE DVT and agree with continued plan for apixiban therapy for acute DVT for 3mo duration (triggered). Assessment & Plan (06/10/2022 3:21 PM GEOGRAPHIC INFORMATION SYSTEM ANALYST): R femoral v DVT noted on US 05/08. Treating with apixaban 5 bid No pitting edema appreciated on RLE. F/u Hb 8.1 on anticoagulation. Billing statement I have reviewed doppler results with RLE DVT and agree with continued plan for apixiban therapy for acute DVT for 3mo duration (triggered). Assessment & Plan (06/10/2022 9:23 AM GEOGRAPHIC INFORMATION SYSTEM ANALYST): R femoral v DVT noted on US 05/08. Treating with apixaban 5 bid No pitting edema appreciated on RLE. F/u Hb 8.1 on anticoagulation. Billing statement I have reviewed doppler results with RLE DVT and agree with continuing apixiban therapy for acute DVT for 3mo duration (triggered). Assessment & Plan (06/08/2022 4:01 PM GEOGRAPHIC INFORMATION SYSTEM ANALYST): R femoral v DVT noted on US 05/08 - cont apixaban 5 bid No pitting edema appreciated. F/u Hb 8.1 on anticoagulation. Billing statement I have reviewed doppler results with RLE DVT and agree with continuing apixiban therapy for acute DVT for 3mo duration (triggered). Assessment & Plan (06/07/2022 10:59 AM GEOGRAPHIC INFORMATION SYSTEM ANALYST): - noted on US 05/08 - cont apixaban 5 bid No pitting edema appreciated. Billing statement I have reviewed doppler results with RLE DVT and agree with continuing apixiban therapy for acute DVT for 3mo duration (triggered). Assessment & Plan (06/06/2022 6:28 PM GEOGRAPHIC INFORMATION SYSTEM ANALYST): - noted on US 05/08 - cont apixaban 5 bid No pitting edema appreciated. Billing statement I have reviewed doppler results with RLE DVT and agree with continuing apixiban therapy for acute DVT. Assessment & Plan (06/05/2022 2:01 PM GEOGRAPHIC INFORMATION SYSTEM ANALYST): - noted on 05/08 - cont apixaban 5 bid Assessment & Plan (06/04/2022 11:09 AM GEOGRAPHIC INFORMATION SYSTEM ANALYST): - noted on 05/08 - cont apixaban 5 bid Assessment & Plan (06/03/2022 2:57 PM GEOGRAPHIC INFORMATION SYSTEM ANALYST): - noted on 05/08 - cont apixaban 5 bid Assessment & Plan (06/02/2022 2:26 PM GEOGRAPHIC INFORMATION SYSTEM ANALYST): - noted on 05/08 - cont apixaban 5 bid Assessment & Plan (06/01/2022 2:18 PM GEOGRAPHIC INFORMATION SYSTEM ANALYST): - noted on 05/08 - cont apixaban 5 bid Assessment & Plan (05/31/2022 2:57 PM GEOGRAPHIC INFORMATION SYSTEM ANALYST): - noted on US 05/08 - cont apixaban 5 bid Assessment & Plan (05/30/2022 2:04 PM GEOGRAPHIC INFORMATION SYSTEM ANALYST): - noted on US 05/08 - cont apixaban 5 bid Goals of care, counseling/discussion 05/27/2022 03/18/2023 Assessment & Plan (07/14/2022 12:11 PM CDT): Multiple discussions throughout prolonged course, present goal is short term SNF placement w/ eventual goal of returning home. - Consulted palliative care for assistance in care home goals. Much appreciated. Assessment & Plan (06/26/2022 5:14 PM CDT): Poor prognosis for most of hospitalization with severe encephalopathy. Was not following commands with behavioral issues that prevented patient from going SNF as skilled (insurance will not cover SNF if he is unable to skill for rehab, which requires following commands). Awaited family decision on facility for penitentiary care at SNF (vs [facility] with private duty, which family declines). CM following and spoke with in f/u 3, 06/22, 06/23. Remains full code. Concern for recurrent aspiration events despite tube feeds and ongoing lack of progress seen in mental status. Marked improvement with normalization of calcium 06/26. Will ask PT/OT to reassess. Anticipate family meeting once MRI results obtained to firm up DC plans. Consulted palliative care for assistance in terminal operations supervisor goals. Much appreciated. Assessment & Plan (06/25/2022 10:21 AM CDT): Poor prognosis. Really not following commands and has behavioral issues that are preventing patient from going SNF as skilled (insurance will not cover SNF if he is unable to skill for rehab, which requires following commands). Awaiting family decision on facility for penitentiary care at SNF (vs [facility] with private duty, which family declines). CM following and spoke with in f/u 38, 06/22, 06/23. Remains full code. Concern for recurrent aspiration events despite tube feeds and ongoing lack of progress seen in mental status. Anticipate family meeting once MRI results obtained to firm up DC plans. Consulted palliative care for assistance in care home goals. Much appreciated. Assessment & Plan (06/24/2022 5:05 PM GEOGRAPHIC INFORMATION SYSTEM ANALYST): Poor prognosis. Really not following commands and has behavioral issues that are preventing patient from going SNF as skilled (insurance will not cover SNF if he is unable to skill for rehab, which requires following commands). Awaiting family decision on facility for penitentiary care at SNF (vs [facility] with private duty, which family declines). CM following and spoke with in f/u 06/21, 06/22, 06/23. Remains full code. Concern for recurrent aspiration events despite tube feeds and ongoing lack of progress seen in mental status. Anticipate family meeting once MRI results obtained to firm up DC plans. Consulted palliative care for assistance in terminal operations supervisor goals. Much appreciated. Assessment & Plan (06/23/2022 3:57 PM GEOGRAPHIC INFORMATION SYSTEM ANALYST): Really not following commands and has behavioral issues that are preventing patient from going SNF as skilled (insurance will not cover SNF if he is unable to skill for rehab, which requires following commands). Awaiting family decision on facility for penitentiary care at SNF (vs [facility] with private duty, which family declines). CM following and spoke with in f/u 06/21, 06/22. Remains full code. Concern for recurrent aspiration events despite tube feeds and ongoing lack of progress seen in mental status. Anticipate family meeting once MRI results obtained to firm up DC plans. Consulted palliative care for assistance in terminal operations supervisor goals. Much appreciated. Assessment & Plan (06/22/2022 4:13 PM GEOGRAPHIC INFORMATION SYSTEM ANALYST): Really not following commands and has behavioral issues that are preventing patient from going SNF (insurance will not cover SNF if he is unable to skill for rehab, which requires following commands). Looking at penitentiary care at SNF as OP (vs [facility] with private duty, family declines). CM following and spoke with in f/u 06/21. Remains full code. Concern for recurrent aspiration events despite tube feeds and ongoing lack of progress seen in mental status. Anticipate family meeting once MRI results obtained to firm up DC plans. Consulted palliative care for assistance in care home goals. Assessment & Plan (06/21/2022 3:26 PM GEOGRAPHIC INFORMATION SYSTEM ANALYST): Really not following commands and has behavioral issues that are preventing patient from going SNF (insurance will not cover SNF if he is unable to skill for rehab, which requires following commands). Looking at penitentiary care at SNF as OP vs HHC with private duty. CM following and spoke with in f/u 06/21. Remains full code. Anticipate family meeting once MRI results obtained to firm up DC plans. Consider palliative care involvement. Assessment & Plan (06/20/2022 6:11 PM GEOGRAPHIC INFORMATION SYSTEM ANALYST): Really not following commands and has behavioral issues that are preventing patient from going SNF (insurance will not cover SNF if he is unable to skill for rehab, which requires following commands). CM following and spoke with in f/u 06/21. Remains full code. Assessment & Plan (06/16/2022 11:58 AM GEOGRAPHIC INFORMATION SYSTEM ANALYST): Multiple discussions with from prior teams (Dr. Barksdale and Dr. Marley) > cont supportive treatments with goal of improvement of encephalopathy and d/c to SNF; remains Full Code. - Spouse, Normal, willing to accept MRI after today's discussion. - Anticipate d/c to SNF, however not medically ready yet. Assessment & Plan (06/15/2022 1:22 PM GEOGRAPHIC INFORMATION SYSTEM ANALYST): Multiple discussions with from prior teams (Dr. Barksdale and Dr. Marley) > cont supportive treatments with goal of improvement of encephalopathy and d/c to SNF; remains Full Code. - Spouse, Normal, willing to accept MRI after today's discussion. - Anticipate d/c to SNF, however not medically ready yet. Assessment & Plan (06/14/2022 2:26 PM GEOGRAPHIC INFORMATION SYSTEM ANALYST): Multiple discussions with from prior teams (Dr. Barksdale and Dr. Marley) > cont supportive treatments with goal of improvement of encephalopathy and d/c to SNF; remains Full Code. - Spouse, Normal, willing to accept MRI after today's discussion. - Anticipate d/c to SNF, however not medically ready yet. Assessment & Plan (06/13/2022 4:22 PM GEOGRAPHIC INFORMATION SYSTEM ANALYST): Multiple discussions with from prior teams (Dr. Barksdale and Dr. Marley) > cont supportive treatments with goal of improvement of encephalopathy and d/c to SNF; remains Full Code. - Spouse, Normal, willing to accept MRI after today's discussion. - Anticipate d/c to SNF, however not medically ready yet. Assessment & Plan (06/12/2022 6:19 PM GEOGRAPHIC INFORMATION SYSTEM ANALYST): multiple discussions with , several times over [...] no beds until late in week ([facility], [facility]). Needs private room for nebulizer use (??), as unable to use MDIs. Additional updated 06/11 with same plan for full code and no MRI. Assessment & Plan (06/11/2022 4:34 PM GEOGRAPHIC INFORMATION SYSTEM ANALYST): multiple discussions with , several times over [...] no beds until late in week ([facility], [facility]). Needs private room for nebulizer use, as unable to use MDIs. Additional updated 06/11 with same plan for full code and no MRI. Assessment & Plan (06/10/2022 3:25 PM GEOGRAPHIC INFORMATION SYSTEM ANALYST): multiple discussions with , several times over [...] no beds until late in week ([facility], [facility]). Needs private room for nebulizer use, as unable to use MDIs. Assessment & Plan (06/10/2022 9:26 AM GEOGRAPHIC INFORMATION SYSTEM ANALYST): multiple discussions with , several times over [...] no beds until late in week ([facility], [facility]). Needs private room for nebulizer use, as unable to use MDIs. Assessment & Plan (06/08/2022 4:05 PM GEOGRAPHIC INFORMATION SYSTEM ANALYST): multiple discussions with , several times over [...] no beds until late in week ([facility], [facility]). Needs private room for Covid, nebulizer use. Assessment & Plan (06/07/2022 11:04 AM GEOGRAPHIC INFORMATION SYSTEM ANALYST): multiple discussions with , several times over [...] no beds until late in week ([facility], [facility]) Assessment & Plan (06/06/2022 6:38 PM GEOGRAPHIC INFORMATION SYSTEM ANALYST): multiple discussions with , several times over [...] no beds until late in week ([facility]) Assessment & Plan (06/05/2022 2:00 PM GEOGRAPHIC INFORMATION SYSTEM ANALYST): - as above again d/w'd multiple times [...] no beds until late in week ([facility]) Assessment & Plan (06/04/2022 11:09 AM GEOGRAPHIC INFORMATION SYSTEM ANALYST): - as above again d/w'd 05/30 and [...] no beds until late in week ([facility]) Assessment & Plan (06/03/2022 2:58 PM GEOGRAPHIC INFORMATION SYSTEM ANALYST): - as above again d/w'd 05/30 and [...] no beds until late in week ([facility]) Assessment & Plan (06/02/2022 2:26 PM GEOGRAPHIC INFORMATION SYSTEM ANALYST): - as above again d/w'd 05/30 and she reiterated similar goals as to Dr. Marley's note from 05/29 > cont supportive treatments with goal of improvement of encephalopathy and d/c to SNF; remains FC; does not want to pursue MRI for now at least Assessment & Plan (06/01/2022 2:18 PM GEOGRAPHIC INFORMATION SYSTEM ANALYST): - as above again d/w'd 05/30 and she reiterated similar goals as to Dr. Marley's note from 05/29 > cont supportive treatments with goal of improvement of encephalopathy and d/c to SNF; remains FC; does not want to pursue MRI for now at least Assessment & Plan (05/31/2022 2:57 PM GEOGRAPHIC INFORMATION SYSTEM ANALYST): - as above again d/w'd 05/30 and she reiterated similar goals as to Dr. Marley's note from 05/29 > cont supportive treatments with goal of improvement of encephalopathy and d/c to SNF; remains FC; does not want to pursue MRI for now at least Assessment & Plan (05/30/2022 2:03 PM GEOGRAPHIC INFORMATION SYSTEM ANALYST): - as above again d/w'd and she reiterated similar goals as to Dr. Marley's note from 05/29 > cont supportive treatments with goal of improvement of encephalopathy and d/c to SNF; remains FC; does not want to pursue MRI for now at least Assessment & Plan (05/29/2022 3:14 PM GEOGRAPHIC INFORMATION SYSTEM ANALYST): Ongoing discussions with patient's that I am [...] Code Assessment & Plan (05/28/2022 1:54 PM GEOGRAPHIC INFORMATION SYSTEM ANALYST): Discussed with patient's yesterday and today that [...] discussions. Assessment & Plan (05/27/2022 3:55 PM GEOGRAPHIC INFORMATION SYSTEM ANALYST): Discussed with patient's yesterday and today that [...] duty, agreeable to pursing [facility] [place]. Ayaka requests SNF with therapy. Ongoing CM//SW discussions without decision on facility, ongoing encouragement. 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 Palliative care consulted 06/22 & appreciated. Discussed above at length with son 06/24 at bedside, Ayaak daily when present (most days). Marked improvement with resolution of hypercalcemia. Able to tolerate up to chair daily. Plan family meeting once MRI results obtained. Plan PT/OT reevaluation and SNF at [place]. List provided by CM. Await family decision. [...] duty, agreeable to pursing [facility] at [place]. Ayaka requests SNF with therapy. Ongoing CM//SW discussions without decision on facility, ongoing encouragement. 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 Palliative care consulted 06/22 & appreciated. Discussed above at length with son 11 at bedside. Plan family meeting once MRI results obtained. Plan [facility] at [place]. List provided by CM. Await family decision. Assessment & Plan (06/24/2022 5:02 PM GEOGRAPHIC INFORMATION SYSTEM ANALYST): Likely multifactorial. Initially thought to be acute [...] duty, agreeable to pursing [facility] at [place]. Ayaka requests SNF with therapy. Ongoing CM//SW discussions without decision on facility, ongoing encouragement. Reiterated time may allow brain to heal, discussed benefits of set routine in managing behaviors care home. Palliative care consulted 06/22 & appreciated. Discussed above at length with son 06/24 at bedside. Plan family meeting once MRI results obtained. Plan SNF at [place]. List provided by CM. Await family decision. Assessment & Plan (06/23/2022 3:47 PM GEOGRAPHIC INFORMATION SYSTEM ANALYST): Likely multifactorial. Initially thought to be acute [...] discussions with regarding options of home with [facility] & private duty vs [facility] at [place]. Ayaka requests SNF with therapy. Ongoing CM//SW discussions without decision. Palliative care consulted 06/22. Anticipate son to arrive 06/24. Plan family meeting once MRI results obtained. Assessment & Plan (06/22/2022 4:09 PM GEOGRAPHIC INFORMATION SYSTEM ANALYST): Likely multifactorial. Thought to be acute delirium [...] discussions with regarding options of home with HH & private duty vs [facility] at [place]. Ayaka requests SNF with therapy. Ongoing CM//SW discussions without decision. Palliative care consulted 06/22. Plan family meeting once MRI results obtained. Assessment & Plan (06/21/2022 3:22 PM GEOGRAPHIC INFORMATION SYSTEM ANALYST): Likely multifactorial. Thought to be acute delirium [...] rehab due to encephalopathy, plan home with [facility] vs [facility] SN[facility] at [place]. Ongoing CM//SW discussions for dispo planning. Will attempt family meeting once MRI results obtained. Assessment & Plan (06/20/2022 6:08 PM GEOGRAPHIC INFORMATION SYSTEM ANALYST): Likely multifactorial. Thought to be acute delirium [...] restraints). Assessment & Plan (06/16/2022 11:57 AM GEOGRAPHIC INFORMATION SYSTEM ANALYST): Likely multifactorial. Thought to be acute delirium [...] oxycodone Assessment & Plan (06/15/2022 1:22 PM GEOGRAPHIC INFORMATION SYSTEM ANALYST): Likely multifactorial. Thought to be acute delirium [...] precautions. Assessment & Plan (06/14/2022 2:26 PM GEOGRAPHIC INFORMATION SYSTEM ANALYST): Likely multifactorial. Thought to be acute delirium [...] precautions. Assessment & Plan (06/13/2022 4:10 PM GEOGRAPHIC INFORMATION SYSTEM ANALYST): Likely multifactorial. Thought to be acute delirium [...] precautions. Assessment & Plan (06/12/2022 6:16 PM GEOGRAPHIC INFORMATION SYSTEM ANALYST): Likely multifactorial ISO initial delirium and toxic-metabolic [...] 06/12 Assessment & Plan (06/11/2022 4:30 PM GEOGRAPHIC INFORMATION SYSTEM ANALYST): Likely multifactorial ISO initial delirium and toxic-metabolic [...] available. Assessment & Plan (06/10/2022 3:21 PM GEOGRAPHIC INFORMATION SYSTEM ANALYST): 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 [...] covid diagnosis, but unlikely given predating symptoms. [facility] [place] [place] 06/08 advanced to regular diet with nectar [...] available. Assessment & Plan (06/10/2022 9:22 AM GEOGRAPHIC INFORMATION SYSTEM ANALYST): 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 [...] covid diagnosis, but unlikely given predating symptoms. [facility] [place] 06/08 advanced to regular diet with nectar [...] ADAT. Assessment & Plan (06/08/2022 4:00 PM GEOGRAPHIC INFORMATION SYSTEM ANALYST): 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 [...] covid diagnosis, but unlikely given predating symptoms. [facility] [place] 06/08 advanced to regular diet with nectar [...] goals/adequacy. Assessment & Plan (06/07/2022 10:58 AM GEOGRAPHIC INFORMATION SYSTEM ANALYST): 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 [...] seroquel) Assessment & Plan (06/06/2022 6:37 PM GEOGRAPHIC INFORMATION SYSTEM ANALYST): 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 [...] status. Assessment & Plan (06/05/2022 1:56 PM GEOGRAPHIC INFORMATION SYSTEM ANALYST): - Likely multifactorial ISO delirium and toxic-metabolic [...] 05/28) Assessment & Plan (06/04/2022 10:59 AM GEOGRAPHIC INFORMATION SYSTEM ANALYST): - Likely multifactorial ISO delirium and toxic-metabolic [...] 05/28) Assessment & Plan (06/03/2022 2:55 PM GEOGRAPHIC INFORMATION SYSTEM ANALYST): - Likely multifactorial ISO delirium and toxic-metabolic [...] 05/28) Assessment & Plan (06/02/2022 2:24 PM GEOGRAPHIC INFORMATION SYSTEM ANALYST): - Likely multifactorial ISO delirium and toxic-metabolic [...] 05/28) Assessment & Plan (06/01/2022 2:17 PM GEOGRAPHIC INFORMATION SYSTEM ANALYST): - Likely multifactorial ISO delirium and toxic-metabolic [...] 05/28) Assessment & Plan (05/31/2022 2:55 PM GEOGRAPHIC INFORMATION SYSTEM ANALYST): - Likely multifactorial ISO delirium and toxic-metabolic [...] 05/28) Assessment & Plan (05/30/2022 1:58 PM GEOGRAPHIC INFORMATION SYSTEM ANALYST): - Likely multifactorial ISO delirium and toxic-metabolic [...] 05/28) Assessment & Plan (05/29/2022 3:12 PM GEOGRAPHIC INFORMATION SYSTEM ANALYST): 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 [...] 05/28) Assessment & Plan (05/28/2022 1:53 PM GEOGRAPHIC INFORMATION SYSTEM ANALYST): 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 -Recent ammonia, tsh, lactate, HIV, ABG [...] trazoldone Assessment & Plan (05/27/2022 3:51 PM GEOGRAPHIC INFORMATION SYSTEM ANALYST): 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 -Recent ammonia, tsh, lactate, HIV, ABG are negative or normal -continue management of hypernatremia (now resolved) and hypercalcemia -PEG tube for feeding -appreciate neurology recommendations -May be developing new baseline, or may be very slow to recover from this prolonged delirium/hospitalization; seemed slightly improved this am Assessment & Plan (05/26/2022 1:25 PM GEOGRAPHIC INFORMATION SYSTEM ANALYST): 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 [...] (04/03/2022): Added automatically from request for surgery [id number] Assessment & Plan (06/17/2022 5:35 PM GEOGRAPHIC INFORMATION SYSTEM ANALYST): In setting of shock, PNA, pneumothorax, and AMS in post-op setting. Tracheostomy placed in ICU and decannulated 05/13, did well on 2L, weaned to RA. Remains stable. Small anterior cervical os with tiny air leak, occlusion dressing placed. Pt unable to stent when speaking due to encephalopathy. Assessment & Plan (06/16/2022 11:56 AM GEOGRAPHIC INFORMATION SYSTEM ANALYST): In setting of shock, PNA, pneumothorax, and AMS in post-op setting. Tracheostomy placed in ICU and decannulated 05/13, did well on 2L, weaned to RA. Remains stable. Small anterior cervical os with tiny air leak, occlusion dressing placed. Pt unable to stent when speaking due to encephalopathy. Assessment & Plan (06/15/2022 1:20 PM GEOGRAPHIC INFORMATION SYSTEM ANALYST): In setting of shock, PNA, pneumothorax, and AMS in post-op setting. Tracheostomy placed in ICU and decannulated 05/13, did well on 2L, weaned to RA. Remains stable. Small anterior cervical os with tiny air leak, occlusion dressing placed. Pt unable to stent when speaking due to encephalopathy. Assessment & Plan (06/14/2022 2:20 PM GEOGRAPHIC INFORMATION SYSTEM ANALYST): In setting of shock, PNA, pneumothorax, and AMS in post-op setting. Tracheostomy placed in ICU and decannulated 05/13, did well on 2L, weaned to RA. Remains stable. Small anterior cervical os with tiny air leak, occlusion dressing placed. Pt unable to stent when speaking due to encephalopathy. Assessment & Plan (06/13/2022 3:58 PM GEOGRAPHIC INFORMATION SYSTEM ANALYST): In setting of shock, PNA, pneumothorax, and AMS in post-op setting. Tracheostomy placed in ICU and decannulated 05/13, did well on 2L, weaned to RA. Remains stable. Small anterior cervical os with tiny air leak, occlusion dressing placed. Pt unable to stent when speaking due to encephalopathy. Assessment & Plan (06/12/2022 6:20 PM GEOGRAPHIC INFORMATION SYSTEM ANALYST): In setting of shock, PNA, pneumothorax, and AMS in post-op setting. Tracheostomy placed in ICU and decannulated 05/13, now doing well on 2L, weaned to RA. Remains stable. Small anterior cervical os with tiny air leak, occlusion dressing placed. Pt unable to stent when speaking due to encephalopathy. Assessment & Plan (06/10/2022 3:30 PM GEOGRAPHIC INFORMATION SYSTEM ANALYST): In setting of shock, PNA, pneumothorax, and AMS in post-op setting. Tracheostomy placed in ICU and decannulated 05/13, now doing well on 2L, weaned to RA. Remains stable. Small anterior cervical os with tiny air leak, occlusion dressing placed. Pt unable to stent when speaking due to encephalopathy. Assessment & Plan (06/10/2022 9:27 AM GEOGRAPHIC INFORMATION SYSTEM ANALYST): In setting of shock, PNA, pneumothorax, and AMS in post-op setting. Tracheostomy placed in ICU and decannulated 05/13, now doing well on 2L, wean to RA Assessment & Plan (06/08/2022 4:11 PM GEOGRAPHIC INFORMATION SYSTEM ANALYST): In setting of shock, PNA, pneumothorax, and AMS in post-op setting. Tracheostomy placed in ICU and decannulated 05/13, now doing well on 2L, wean to RA Assessment & Plan (05/30/2022 2:04 PM GEOGRAPHIC INFORMATION SYSTEM ANALYST): - In setting of shock, PNA, pneumothorax, and AMS in post-op setting. Tracheostomy placed in ICU and decannulated 05/13, now doing well on RA Assessment & Plan (05/29/2022 3:13 PM GEOGRAPHIC INFORMATION SYSTEM ANALYST): - In setting of shock, PNA, pneumothorax, and AMS in post-op setting. Tracheostomy placed in ICU and decannulated 05/13, now doing well on RA Assessment & Plan (05/28/2022 1:53 PM GEOGRAPHIC INFORMATION SYSTEM ANALYST): - In setting of shock, PNA, pneumothorax, and AMS in post-op setting. Tracheostomy placed in ICU and decannulated 05/13, now doing well on RA Assessment & Plan (05/27/2022 3:53 PM GEOGRAPHIC INFORMATION SYSTEM ANALYST): - In setting of shock, PNA, pneumothorax, and AMS in post-op setting. Tracheostomy placed in ICU and decannulated 05/13, now doing well on RA Assessment & Plan (05/25/2022 3:17 PM GEOGRAPHIC INFORMATION SYSTEM ANALYST): - In setting of shock, PNA, pneumothorax, and AMS in post-op setting. Tracheostomy placed in ICU and decannulated 05/13, now doing well on RA Assessment & Plan (04/05/2022 12:16 PM GEOGRAPHIC INFORMATION SYSTEM ANALYST): Ravinder Chapman is a 76 y.o. male with a PMHx of cervical myelopathy, COPD/AMAYA (CPAP at home), and obesity initially admitted to the [facility] [place] spine floor s/p C3-7 ACDF and C3-7 [...] 10/27/2020 10/30/2022 Dry skin dermatitis 07/19/2020 03/18/20 Assessment & Plan (07/19/2020 1:12 PM CDT): Will check TSH, CMP. Gave triamcinolone cream to use and encouraged to continue good lotion usage. Generalized weakness 07/19/2020 023 Assessment & Plan (07/24/2022 2:22 PM CDT): Physical and occupational therapy for strengthening. Maintain respiratory droplet precautions per pandemic. Vital signs every shift including oxygen saturation. Assessment & Plan (04/05/2021 5:48 PM GEOGRAPHIC INFORMATION SYSTEM ANALYST): Patient reports no significant vertigo, but loses [...] 07/19/2020 Assessment & Plan (05/06/2020 12:58 PM GEOGRAPHIC INFORMATION SYSTEM ANALYST): D- dimer is 815. Slightly elevated as age adjusted normal value for this patient is 730. Possibly secondary to current inflammatory process given acute colitis. Do not suspect PE or DVT. Colitis 05/05/2020 07/19/2020 Assessment & Plan (05/06/2020 12:54 PM GEOGRAPHIC INFORMATION SYSTEM ANALYST): Presented with abdominalo pain X 2 days. [...] 09/22/2019 Assessment & Plan (03/04/2019 2:55 PM GEOGRAPHIC INFORMATION SYSTEM ANALYST): Family hx of breast ca. Will order [...] weight-bearing; Assessment & Plan (04/29/2021 11:06 AM GEOGRAPHIC INFORMATION SYSTEM ANALYST): Stable, patient has been working on weight [...] 01/14/2018 Assessment & Plan (04/10/2017 9:35 AM GEOGRAPHIC INFORMATION SYSTEM ANALYST): Will treat with omnicef. Overall he's improved. [...] (07/15/2022 10:46 AM CDT): Severe GIN/ATN requiring HCC CODERS in setting of critical illness. Making reasonable amount of urine, creatinine stabilized off dialysis. Tunneled line removed 05/25. Cr appears to have improved to 1.2-1.3. GIN resolved. 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 -Continue to avoid nephrotoxins - encourage PO intake Assessment & Plan (06/26/2022 5:10 PM CDT): Severe GIN/ATN requiring HCC CODERS in setting of critical illness. Making reasonable amount of urine, creatinine stabilized off dialysis. Tunneled line removed 2. Cr appears to be plateaued <2. GIN resolved. 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 -Continue to avoid nephrotoxins -Cont intermittent IVF as needed for hypernatremia, as TF FW flushes doesn't seem to help as much, but further advanced. Earth Science Technical Officer reconsulted to address volume of flushes, water needs. -Volume status on exam appears good. Tx hypercalcemia as elsewhere, iCr 1.90 with holding of TF for recurrent vomiting. Assessment & Plan (06/25/2022 10:19 AM CDT): Severe GIN/ATN requiring HCC CODERS in setting of critical illness. Making reasonable amount of urine, creatinine stabilized off dialysis. Tunneled line removed 05/25. Cr appears to be plateaued <2. GIN resolved. 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 -Continue to avoid nephrotoxins -Cont intermittent IVF as needed for hypernatremia, as TF FW flushes doesn't seem to help as much, but further advanced. Earth Science Technical Officer reconsulted to address volume of flushes, water needs. -Volume status on exam appears good. Tx hypercalcemia as elsewhere, improvign trend. Assessment & Plan (06/24/2022 5:03 PM GEOGRAPHIC INFORMATION SYSTEM ANALYST): Severe GIN/ATN requiring HCC CODERS in setting of critical illness. Making reasonable amount of urine, creatinine stabilized off dialysis. Tunneled line removed 2. Cr appears to be plateaued <2. GIN resolved. 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 -Continue to avoid nephrotoxins -Cont intermittent IVF as needed for hypernatremia, as TF FW flushes doesn't seem to help as much. Earth Science Technical Officer reconsulted to address volume of flushes, water needs. -Volume status on exam appears good. Tx hypercalcemia as elsewhere. Assessment & Plan (06/23/2022 3:48 PM GEOGRAPHIC INFORMATION SYSTEM ANALYST): Severe GIN/ATN requiring HCC CODERS in setting of critical illness. Making reasonable [...] elsewhere. Assessment & Plan (06/22/2022 4:08 PM GEOGRAPHIC INFORMATION SYSTEM ANALYST): Severe GIN/ATN requiring HCC CODERS in setting of critical illness. Making reasonable amount of urine, creatinine stabilized off dialysis. Tunneled line removed 05/25. Cr appears to be plateaued <2. GIN resolved. 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 -Continue to avoid nephrotoxins -Cont intermittent IVF as needed for hypernatremia, as TF FW flushes doesn't seem to help as much. Tx hypercalcemia as elsewhere. Assessment & Plan (06/21/2022 3:23 PM GEOGRAPHIC INFORMATION SYSTEM ANALYST): Severe GIN/ATN requiring HCC CODERS in setting of critical illness. Making reasonable amount of urine, creatinine stabilizing off dialysis. Tunneled line removed 2. Cr appears to be plateaued <2. GIN resolved. 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 -Continue to avoid nephrotoxins -Cont intermittent D5w IV as needed for hypernatremia, as TF FW flushes doesn't seem to help as much. Assessment & Plan (06/20/2022 6:09 PM GEOGRAPHIC INFORMATION SYSTEM ANALYST): Severe GIN/ATN requiring HCC CODERS in setting of critical illness. Making reasonable amount of urine, creatinine stabilizing off dialysis. Tunneled line removed 05/25. Cr appears to be plateaued <2. GIN resolved. 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 -Continue to avoid nephrotoxins -Cont NS IV as needed for hypernatremia, -TF FW flushes doesn't seem to help as much. Assessment & Plan (06/16/2022 11:56 AM GEOGRAPHIC INFORMATION SYSTEM ANALYST): Severe GIN/ATN requiring HCC CODERS in setting of critical illness. Making reasonable amount of urine, creatinine stabilizing off dialysis. Tunneled line removed 05/25. Cr appears to be plateaued <2. GIN resolved. -Continue to avoid nephrotoxins Assessment & Plan (06/15/2022 1:19 PM GEOGRAPHIC INFORMATION SYSTEM ANALYST): Severe GIN/ATN requiring HCC CODERS in setting of critical illness. Making reasonable amount of urine, creatinine stabilizing off dialysis. Tunneled line removed 05/25. Cr appears to be plateaued <2. GIN resolved. -Continue to avoid nephrotoxins Assessment & Plan (06/14/2022 2:19 PM GEOGRAPHIC INFORMATION SYSTEM ANALYST): Severe GIN/ATN requiring HCC CODERS in setting of critical illness. Making reasonable amount of urine, creatinine stabilizing off dialysis. Tunneled line removed 05/25. Cr appears to be plateaued <2. GIN resolved. -Continue to avoid nephrotoxins Assessment & Plan (06/13/2022 3:57 PM GEOGRAPHIC INFORMATION SYSTEM ANALYST): Severe GIN/ATN requiring HCC CODERS in setting of critical illness. Making reasonable amount of urine, creatinine stabilizing off dialysis. Tunneled line removed 05/25. Cr appears to be plateaued <2. GIN resolved. -Continue to avoid nephrotoxins Assessment & Plan (06/12/2022 6:17 PM GEOGRAPHIC INFORMATION SYSTEM ANALYST): Severe GIN/ATN requiring HCC CODERS in setting of critical illness. Making reasonable [...] PCP Assessment & Plan (06/11/2022 4:33 PM GEOGRAPHIC INFORMATION SYSTEM ANALYST): Severe GIN/ATN requiring HCC CODERS in setting of critical illness. Making reasonable [...] PCP Assessment & Plan (06/10/2022 3:23 PM GEOGRAPHIC INFORMATION SYSTEM ANALYST): Severe GIN/ATN requiring HCC CODERS in setting of critical illness. Making reasonable [...] exams. Assessment & Plan (06/10/2022 9:23 AM GEOGRAPHIC INFORMATION SYSTEM ANALYST): Severe GIN/ATN requiring HCC CODERS in setting of critical illness. Making reasonable [...] exams. Assessment & Plan (06/08/2022 4:02 PM GEOGRAPHIC INFORMATION SYSTEM ANALYST): Severe GIN/ATN requiring HCC CODERS in setting of critical illness. Making reasonable [...] exams. Assessment & Plan (06/07/2022 11:00 AM GEOGRAPHIC INFORMATION SYSTEM ANALYST): Severe GIN/ATN requiring HCC CODERS in setting of critical illness. Making reasonable [...] exams. Assessment & Plan (06/06/2022 6:29 PM GEOGRAPHIC INFORMATION SYSTEM ANALYST): - Severe GIN/ATN requiring HCC CODERS in setting of critical illness. Making reasonable [...] exams. Assessment & Plan (06/05/2022 2:00 PM GEOGRAPHIC INFORMATION SYSTEM ANALYST): - Severe GIN/ATN requiring HCC CODERS in setting of critical illness. Making reasonable amount of urine, creatinine stabilizing off dialysis - tunneled line removed 2/9 - cont to avoid nephrotoxins - Cr appears to be leveling off around 2 thus far Assessment & Plan (06/04/2022 11:03 AM GEOGRAPHIC INFORMATION SYSTEM ANALYST): - Severe GIN/ATN requiring HCC CODERS in setting of critical illness. Making reasonable amount of urine, creatinine stabilizing off dialysis - tunneled line removed 2/9 - cont to avoid nephrotoxins Assessment & Plan (06/03/2022 2:56 PM GEOGRAPHIC INFORMATION SYSTEM ANALYST): - Severe GIN/ATN requiring HCC CODERS in setting of critical illness. Making reasonable amount of urine, creatinine stabilizing off dialysis - tunneled line removed 2/9 - cont to avoid nephrotoxins Assessment & Plan (06/02/2022 2:25 PM GEOGRAPHIC INFORMATION SYSTEM ANALYST): - Severe GIN/ATN requiring HCC CODERS in setting of critical illness. Making reasonable amount of urine, creatinine stabilizing off dialysis - tunneled line removed 2/9 - cont to avoid nephrotoxins Assessment & Plan (06/01/2022 2:18 PM GEOGRAPHIC INFORMATION SYSTEM ANALYST): - Severe GIN/ATN requiring HCC CODERS in setting of critical illness. Making reasonable amount of urine, creatinine stabilizing off dialysis - tunneled line removed 2/9 - cont to avoid nephrotoxins Assessment & Plan (05/31/2022 2:57 PM GEOGRAPHIC INFORMATION SYSTEM ANALYST): - Severe GIN/ATN requiring HCC CODERS in setting of critical illness. Making reasonable amount of urine, creatinine stabilizing off dialysis - tunneled line removed 2/9 - cont to avoid nephrotoxins Assessment & Plan (05/30/2022 2:02 PM GEOGRAPHIC INFORMATION SYSTEM ANALYST): - Severe GIN/ATN requiring HCC CODERS in setting of critical illness. Making reasonable amount of urine, creatinine stabilizing off dialysis - tunneled line removed 2/9 - cont to avoid nephrotoxins Assessment & Plan (05/29/2022 3:13 PM GEOGRAPHIC INFORMATION SYSTEM ANALYST): - Severe GIN/ATN requiring HCC CODERS in setting of critical illness. Making good urine, creatinine stable off dialysis - tunneled line removed 2/9 - cont to avoid nephrotoxins Assessment & Plan (05/28/2022 1:53 PM GEOGRAPHIC INFORMATION SYSTEM ANALYST): - Severe GIN/ATN requiring HCC CODERS in setting of critical illness. Making good urine, creatinine stable off dialysis - tunneled line removed 05/25 - cont to avoid nephrotoxins Assessment & Plan (05/27/2022 3:52 PM GEOGRAPHIC INFORMATION SYSTEM ANALYST): - Severe GIN/ATN requiring HCC CODERS in setting of critical illness. Making good urine, creatinine slowly improving off dialysis - tunneled line removed 05/25 - cont to avoid nephrotoxins Assessment & Plan (05/26/2022 1:17 PM GEOGRAPHIC INFORMATION SYSTEM ANALYST): - Severe GIN/ATN requiring HCC CODERS in setting of critical illness. Making good urine, creatinine has stabilized off dialysis - tunneled line removed 05/25 - cont to avoid nephrotoxins Immunizations Immunization [...] materials from doctor or pharmacy Sometimes 10/09/2022 [facility] Utilities Answer Date Recorded In the past 12 months has th e [employer], gas, oil, or water [employer] threatened to shut off services in your home? No 06/20/2023 Social Connection and Isolat ion Panel [NHANES] Answer Date Recorded In a typical week, how many times do you talk on the phone with family, friends, or neighbors? Three times a week 06/20/2023 How often do you get togethe r with friends or relatives? Once a week 06/20/2023 How often do you attend [facility] or pentecostal services? More than 4 times per year 06/20/2023 Do you belong to any clubs o r organizations such as quaker groups, unions, fraternal or athletic groups, or [...] place to sleep or slept in a longterm (including now)? No 06/20/2023 Personal Safety Answer Date Recorded Have you ever been in or are you currently in a harmful physical or emotional relationship or is someone making you feel afraid or unsafe? Denies 06/16/2023 Sex and Gender Information Value Date Recorded Sex Assigned at Not on file Legal Sex Male 1:30 PM GEOGRAPHIC INFORMATION SYSTEM ANALYST Gender Identity Male 02/21/2021 12:31 PM GEOGRAPHIC INFORMATION SYSTEM ANALYST Sexual Orientation Straight 12/22/2020 11 :36 AM [...] Mass Index 32.73 09/10/2024 8:23 AM CDT Plan of Treatment Not on file Medical Devices Implanted Type Area Head Tennis Coach Device Identifier Shelf Expiration Date Model / Serial / Lot [employer] Device Vascular Closure Femoral Artery Bioabsorbable Dual Method Vascade 6-7fr Collagen [id number] - [id number] Implanted:Qty: 1 on 06/18/2023 by Maria A Seymour MD at [facility] Right: Common Femoral Artery [employer] Inc 02/07/2025 [id number] / / [id number] Ceraped[employer] Inc Allograft Bone Putty 2.5cc 700-025 - [id number] Implanted:Qty: 1 on 03/17/2022 by Boogie Casas MD at [facility] Spine Cervical [employer] Inc [id number] 09/13/2024 700-025 / / [id number] [employer] Screw Trelloss-C Sa 3.5x12mm [id number] - [id number] Implanted:Qty: 1 on 03/17/2022 by Boogie Casas MD at [facility] Spine Cervical [employer] [id number] 01/04/2027 [id number] / / [id number] [employer] Spacer Trelloss-C Sa [id number] 6deg [id number] - [id number] Implanted:Qty: 1 on 03/17/2022 by Boogie Casas MD at [facility] Spine Cervical [employer] [id number] 02/10/2025 [id number] / / [id number] [employer] Spacer Trelloss-C Sa [id number] 6deg [id number] - [id number] Implanted:Qty: 1 on 03/17/2022 by Boogie Casas MD at [facility] Spine Cervical [employer] [id number] 01/28/2025 [id number] / / [id number] [employer] Llc Inqu Paste Mix Plus Cotton Broker 10cc Bone Graft Hyaluronic Acid Poly [id number] - [id number] Implanted:Qty: 1 on 03/17/2022 by Boogie Casas MD at [facility] Spine Cervical [employer] 08/31/2022 [id number] / / [id number] James [employer] Inc Virage 3.5mm 16mm Polyaxial Spine Screw Bone Nonsterile 07.11781.009 - [id number] Implanted:Qty: 7 on 03/17/2022 by Boogie Casas MD at [facility] Spine Cervical [employer] 07.62755. 009 / / Ajmes [employer] Inc Virage 3.5mm 14mm Polyaxial Spine Screw Bone Nonsterile 07.28449.007 - [id number] Implanted:Qty: 2 on 03/17/2022 by Boogie Casas MD at [facility] Spine Cervical [employer] 07.91174. 007 / / [employer] Inc Virage 4mm 20mm Self Tap Polyaxial Spine Screw Bone Titanium Gold 07.41030.056 - [id number] Implanted:Qty: 1 on 03/17/2022 by Boogie Casas MD at [facility] Spine Cervical [employer] 07.81725. 056 / / Prasanna Straight Cocr 3.5mm X 400mm - [id number] Implanted:Qty: 1 on 03/17/2022 by Boogie Casas MD at [facility] Spine Cervical [employer] 07.81612. 002 / / James [employer] Inc Virage Closure Top Lid Sterilization Nonsterile Disposable Screw 07.87392.001 - [id number] Implanted:Qty: 10 on 03/17/2022 by Boogie Casas MD at [facility] Spine Cervical [employer] 07.91044. 001 / / Allosource Canpac Nonpurge Frozen Graft 50cc Bone [id number] - [id number] Implanted:Qty: 1 on 03/17/2022 by Boogie Casas MD at [facility] Spine Cervical [employer] 06/23/2026 [id number] / / [id number] Nex[employer] Screw Trelloss-C Sa 3.5x14mm [id number] - [id number] Implanted:Qty: 1 on 03/17/2022 by Boogie Casas MD at [facility] Spine Cervical [employer] [id number] 03/01/2025 [id number] / / [id number] Procedures Procedure Name Priority Date/Time Associated Diagnosis [...] abdominal aortic aneurysm COLONOSCOPY 03/28/2021 7:23 AM GEOGRAPHIC INFORMATION SYSTEM ANALYST HEPATITIS C ANTIBODY Routine 01/19/2020 2:11 PM CDT Encounter for hepatitis C screening test for low risk patient from Last 3 Months or Most Recently Relevant to Health Maintenance Results * POCT lipid panel (09/10/2024 8:18 AM CDT) Cholesterol, POC 131 <200 MG/DL HDL, POC 48 >=40 mg/dL Triglycerides, POC 94 <=149 mg/dL LDL Cholesterol POC 65 <=129 mg/dL Chol/HDL Ratio, POC 1.3 NONE Non-HDL Cholesterol, POC 83 NONE mg/dL Cholesterol Total, POC 131 30 - 199 mg/dL Capillary blood 09/10/2024 8 :18 AM CDT Reymundo Bloom MD POINT OF CARE TEST [...] was last reviewed 2021. Testing performed by: [address] [address] Blood 07/09/2024 10:0 4 AM CDT 07/09/2024 1:21 PM CDT us Sanford Mcduffie MD LAB BLOOD ORDERABLES Final R esult [facility] [place] [facility] Department [place] [address] * Protein / creatinine ratio, urine, random (07/09/2024 10:04 AM CDT) Protein, ur, quant 16.4 mg/dL Comment: Interpretive Data No reference range established. Current interpretive data was last revised 2018. Testing performed by: [address] [address] Creatinine Ur 182.8 mg/dL [facility] (PAM) Comment: Interpretive Data No reference range established. Current interpretive data was last revised 2018. Testing performed by: [address] [address] Protein/creatinin e ratio 89.7 0.0 - 180.0 mg/g CR [facility] (PAM) Comment:Testing performed by : [address], [address] Urine 07/09/2024 10:0 4 AM CDT 07/09/2024 10:05 AM CDT Sanford Mcduffie MD LAB URINE ORDERABLES Final R esult Performing Organization Address City/[facility]/ZIP Co de Phone Number SHONA FRY (PAM) 1 [facility] [place] [address] * Vitamin D 25 hydroxy (07/09/2024 10:04 AM CDT) Pathologist [facility] Vitamin D 25-OH 72 30 - 80 ng/mL Comment:Testing performed by : [address], [address] Blood 07/09/2024 10:0 4 AM CDT 07/09/2024 10:04 AM CDT Sanford Mcduffie MD LAB BLOOD ORDERABLES Final R esult Performing Organization Address City/[facility]/ZIP Co de Phone Number [facility]ONA FRY (PAM) 1 [facility] [address] * (ABNORMAL) CBC without differential (07/09/2024 10:04 AM CDT) Pathologist [facility] WBC 7.6 3.8 - 9.9 K/cumm Comment:Testing performed by : [address], [address] Hgb 12.3(L) 13.0 - 17.5 g/dL [facility] FR[facility] (PAM) Comment:Testing performed by : [address], [address] Hct 40.4 38.9 - 50.3 % [facility] (PAM) Comment:Testing performed by : [address], [address] Plt 173 150 - 400 K/cumm [facility] (PAM) Comment:Testing performed by : [address], [address] MPV 11.8 9.1 - 12.3 fL [facility] ([facility]AM) Comment:Testing performed by : [address], [address] RBC 4.62 4.30 - 5.80 M/cumm [facility] ([facility]AM) Comment:Testing performed by : [address], [address] MCV 87.4 81.3 - 96.4 fL [facility] ([facility]AM) Comment:Testing performed by : [address], [address] MCH 26.6(L) 27.1 - 33.3 pg [facility] ([facility]AM) Comment:Testing performed by : [address], [address] MCHC 30.4(L) 32.3 - 35.7 g/dL [facility] ([facility]AM) Comment:Testing performed by : [address], [address] RDW CV 15.7(H) 11.1 - 14.9 % [facility] ([facility]AM) Comment:Testing performed by : [address], [address] RDW SD 49.9(H) 35.7 - 48.1 fL [facility] ([facility]AM) Comment:Testing performed by : [address], [address] NRBC abs 0.00 0.00 - 0.01 K/cumm [facility] ([facility]AM) Comment:Testing performed by : [address], [address] Blood 07/09/2024 10:0 4 AM CDT 07/09/2024 10:04 AM CDT Sanford Mcduffie MD LAB BLOOD ORDERABLES Final R esult Performing Organization Address [facility] Co de Phone Number [facility] ([place]) 1 [place] [address] * Uric acid (07/09/2024 10:04 AM CDT) Uric acid 5.0 3.0 - 8.0 mg/dL Comment:Testing performed by : [facility], [address] [place] [address], [address] Blood 07/09/2024 10:0 4 AM CDT 07/09/2024 10:05 AM CDT Sanford Mcduffie MD LAB BLOOD ORDERABLES Final R esult Performing Organization Address [facility] de Phone Number [facility] ([place]) 1 [place] [address] * PTH (07/09/2024 10:04 AM CDT) PTH 65 15 - 65 pg/mL Comment:Testing performed by : [address], [facility], [address] Blood 07/09/2024 10:0 4 AM CDT 07/09/2024 10:05 AM CDT Sanford Mcduffie MD LAB BLOOD ORDERABLES Final R esult Performing Organization Address [facility] Co de Phone Number [facility] ([place]) 1 [place] [address] * (ABNORMAL) Renal function panel (07/09/2024 10:04 AM CDT) Sodium 145 135 - 145 mmol/L Comment:Testing performed by : [address], [address] Potassium, pl 4.2 3.3 - 4.9 mmol/L [facility] (PAM) Comment:Testing performed by : [facility] [address] [place] [address]., [address] Chloride 111(H) 97 - 110 mmol/L [facility] ([facility]) Comment:Testing performed by : [address] [address] CO2 26 22 - 32 mmol/L [facility] (APM) Comment:Testing performed by : [address], [address] Anion gap 8 2 - 15 mmol/L [facility] ([facility]AM) Comment:Testing performed by : [address], [address] BUN 37(H) 6 - 25 mg/dL [facility] ([facility]) Comment:Testing performed by : [address], [address] Creatinine 1.76(H) 0.80 - 1.30 mg/dL [facility] ([facility]) Comment:Testing performed by : [address], [address] Glucose 98 70 - 199 mg/dL [facility] [...] was last revised 2022. Testing performed by: [address] [address] Calcium 10.0 8.5 - 10.3 mg/dL [facility] ([facility]) Comment:Testing performed by : [address] [address] Phosphorus, pl 3.7 2.3 - 4.5 mg/dL [facility] ([facility]) Comment:Testing performed by : [address], [address] Albumin 3.9 3.5 - 5.0 g/dL [facility] ([facility]) Comment:Testing performed by : [facility], [address] [place] [address], [place]., [address] Blood 07/09/2024 10:0 4 AM CDT 07/09/2024 10:05 AM CDT Sanford Mcduffie MD LAB BLOOD ORDERABLES Final R esult [facility] ([place]) 1 [facility] Department [place] [address] * US Abdominal Aortic Aneurysm Screening (02/12/2024 [...] by: Lani Simmons M.D. Reymundo Bloom MD [facility] PROCEDURES Final Result * COLONOSCOPY (03/28/2021 7:23 AM GEOGRAPHIC INFORMATION SYSTEM ANALYST) Anatomical Region Laterality Modality Other Narrative Procedure Note Roe Dior MD - 03/28/2021 7:23 AM CST [facility] Patient Name: Ravinder Chapman Procedure Date: 03/28/2021 7:23 AM Date of : 1945 Admit Type: Outpatient Age: 75 Gender: Male Attending MD: Roe Dior M.D. Room: [facility] ENDOSCOPY ROOM 2 Note Status: Finalized Patient [...] scope was passed under direct vision. TheColonoscope [id number] was introduced through the anus and advanced [...] 7:23 AM Procedure Code(s): --- Professional --- 81143, Colonoscopy, flexible; with removal of tumor(s), polyp(s), or other lesion(s) by snare technique Diagnosis Code(s): --- Professional --- K57.30, Diverticulosis of large intestine without perforation orabscess without bleeding K63.5, Polyp of colon K64.9, Unspecified hemorrhoids Z86.010, Personal history of colonic polyps CPT copyright 2019 [employer]. All rights reserved. The codes documented in this report are preliminary and upon cook room supervisor reviewmay be revised to meet current compliance requirements. Recognized by the [employer] for promoting quality [...] - GENERAL OR DERABLES Final Result [facility] [address] Department [place] [address] from Last 3 Months or Most Recently Relevant to Health Maintenance Insurance AETNA MEDICARE AETNA MEDICARE AETNA MEDICARE AETNA MEDICARE Advance Directives For more information, please contact: [phone] Documents on File Type Date Recorded Patient Neck Band Operator Expl anation ADVANCE DIRECTIVE 01/03/2022 2:56 PM POWER OF PHARMACY RETAIL SUPPORT SPECIALIST-MEDICAL * Full Code (Latest Code Status on [...] 6:30 PM 05/24/2020 4:53 PM Care Teams Enterprise Resource Planning Consultant Relationship Specialty Start Date End Date Nick Almanzar MD [address] [place] [address] PCP - General Family Medicine 12/23/20 Luke Santiago MD Consulting Physician Pulmonary Disease 05/15/20 [place] [address] [facility] [place] [address] [place] [address] Consulting Physician Pulmonary Disease 11/02/20 Jony Wilcox MD [address] [place] [address] [address] [place] [address] Consulting Physician Nephrology 06/19/23 Maria A Seymour MD [address] [facility] [address] [place], [place] [address] Consulting Physician Interventional Cardiology 06/19/23 Alex Urbina MD [address] [facility] [address], [facility] [address] [place] [address] Consulting Physician Cardiology 06/19/23 [place] [address] [facility] [address] [place] [address] Nurse Practitioner Dye House Vat Worker 02/27/24
--- OUTSIDE RECORDS SUMMARY | 2024-10-02 01:52 | XMS_ITS ---
Author Organization [facility] Address [address] [address] Care Team Providers Care Auto Body Estimator Name Role Phone Jony Wilcox Unavailable [phone] Medications Medication SIG (Take, Route, Frequency, Duration) Notes Start Date End Date Status Ergocalciferol 1.25 MG (94316 UT) 1 capsule Orally Once a week for 90 day(s) 09/12/2023 06/07/2024 Active Farxiga 10 MG 1 tablet Orally Once a day for 90 09/12/2023 06/07/2024 Active Losartan Potassium 50 MG 1 tablet Orally Once a day for 90 07/11/2023 Active Calcitriol 0.25 MCG 1 capsule Orally Onc e a day for 90 day(s) 07/11/2023 04/05/2024 Active Ergocalciferol 1.25 MG (10772 UT) 1 capsule Orally Once a week for 90 day(s) 07/11/2023 04/05/2024 Active Calcitriol 0.25 MCG 1 capsule Orally Onc e a day for 90 day(s) 09/12/2023 06/07/2024 Active Allopurinol 100 MG 1 tablet Orally Once a day for 90 day(s) 09/12/2023 06/07/2024 Active Encounters Encounter Location Date Provider Diagnosis Jairo Bruno [address] [place] [address] 11/14/2023 Jony Wilcox Chronic kidney disea se, [...] * Ravinder HINOJOSA EDOB:[birth year] (78 yo M)Acc No.[id number]:11/14/2023 Progress Notes Patient: Ravinder NIÑO Provider: Ivonne WEIR MD, F.A.C.P, F.A.S.N. :1945 A ge:77 Y S ex:Male Date:11/14/2023 Address:[address] [place] [address] Subjective: * Chief Complaints: * * Medical History: * Medications: T aking Losartan Potassium 50 MG Tablet 1 tablet Orally Once a day , Taking Calcitriol 0.25 MCG Capsule 1 capsule Orally Once a day , stop date 04/05/2024, Taking Ergocalciferol 1.25 MG (20015 UT) Capsule 1 capsule Orally Once a week , stop date 04/05/2024, Taking Calcitriol 0.25 MCG Capsule 1 capsule Orally Once a day , stop date 06/07/2024, Taking Allopurinol 100 MG Tablet 1 tablet Orally Once a day , stop date 06/07/2024, Taking Farxiga 10 MG Tablet 1 tablet Orally Once a day , stop date 06/07/2024, Taking Ergocalciferol 1.25 MG (23778 UT) Capsule 1 capsule Orally Once a [...] Treatment: * Billing Information: * Visit Code: 90274 Office Visit, Est Pt., Level 4. * Procedure Codes: * Electronic signature of Ad Wilcox MD on 10/02/2024 at 01:52 AM CDT Sign off status: Pending * Provider: Ivonne WEIR MD, F.A.C.P, F.A.S.N. Date: 11/14/2023 Generated for Printing/Faxing/eTransmitting on: 0 10/02/2024 01:52 AM CDT
--- OUTSIDE RECORDS SUMMARY | 2024-10-02 01:53 | XMS_ITS | Clinical Summary ---
Author Organization [facility] [employer] Address [address] [place] [address] Care Team Providers Care Technical Solutions Consultant Name Role Phone Michael Cheney MD Unavailable [phone] Nick Almanzar MD Primary Care Provider [phone] [facility],non-owned Affiliates and Associated Physician Practices is amultiple site organization consisting of ambulatory clinics and hospital sitesin [place], [place], [place] and [place]. This disclosure is being madepursuant to the Care Everywhere program and may not contain all information available regarding this patient. Last updated 18.[facility] [employer] Allergies Active Allergy Reactions Criticality Noted Date [...] mg by mouth once daily 1 Active [place]-3 1000 MG Take 1 capsule by mouth [...] (01/16/2024): Added automatically from request for surgery [id number] IMO Replacement Utility 01/16/2024 Bilateral primary osteoarthritis [...] Sex Assigned at Male 03/25/2021 3:11 PM OIL RIGGER Legal Sex Male 6:25 AM OIL RIGGER Gender Identity Male 03/25/2021 3:11 PM OIL RIGGER Sexual Orientation Straight 03/25/2021 3: 11 PM OIL RIGGER Last Filed Vital Signs Vital Sign Reading Time Taken Comments Blood Pressure - - Pulse - - Temperature - - Respiratory Rate - - Oxygen Saturation - - Inhaled Oxygen Concentration - - Weight 93.9 kg (207 lb) 04/05/2021 2:31 PM OIL RIGGER Height 171.5 cm (5' 7.5) 04/05/2021 2:31 PM OIL RIGGER Body Mass Index 31.94 04/05/2021 2:31 PM OIL RIGGER Plan of Treatment Health Maintenance Due Date [...] to complete this topic Insurance [facility] MANAGED MEDICARE ADV AETNA MEDICARE ADV SELF PAY NO INSURANCE Member Subscriber Plan / Payer (Ef fective for All Dates) Name:Ravinder Hinojosa Member ID:Not on file Relation to Subscriber:Not on file Name:RAVINDER HINOJOSA Subscriber ID:Not on file (Home) Address: [address] [place] [id number] Payer ID:Not on file Group ID:Not on file Type:Self Pay Address: [place], [place] Care Teams Technical Solutions Consultant Relationship Specialty Start Date End Date Nick Almanzar MD [address] [place] [address] PCP - General Family Medicine 02/25/21 [place] [address] [address] [address] Orthopedic Surgery 01/25/18
--- OUTSIDE RECORDS SUMMARY | 2024-10-02 01:53 | XMS_ITS | Clinical Summary ---
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 Home Weatherizing Worker re advanced TFlushes & spot bolus [...] via J tube 06/21 and initially tolerating. Home Weatherizing Worker re advanced TFlushes & spot bolus [...] leukocytosis. Assessment & Plan (06/24/2022 5:08 PM COMMERCIAL COLLECTIONS DRIVER): Per nursing over last few weeks has had intermittent vomiting. - Changed from continuous to bolus TF to see if this helped. Recurrent emesis with suspected aspiration 3 on bolus feeds based on suctioning tube feeds from mouth. CXR neg for PNA. Added reglan 5mg q8hrs for GERD, then DCed. D/w IR and converted G to GJ tube 06/21/22 Resumed TF via J tube 06/21 and tolerating. Home Weatherizing Worker re TFlushes. Continue Strict aspiration precautions. - ANIA recently NAD, no constipation. Assessment & Plan (06/23/2022 4:00 PM COMMERCIAL COLLECTIONS DRIVER): Per nursing over last few weeks has [...] tube 06/21. Continue Strict aspiration precautions. - KUBhargavi recently NAD, no constipation. Assessment & Plan (06/22/2022 4:16 PM COMMERCIAL COLLECTIONS DRIVER): Per nursing over last few weeks has [...] NAD. Assessment & Plan (06/21/2022 3:29 PM COMMERCIAL COLLECTIONS DRIVER): Per nursing over last few weeks has [...] NAD. Assessment & Plan (06/20/2022 6:17 PM COMMERCIAL COLLECTIONS DRIVER): Per nursing over last few weeks has [...] negative. Assessment & Plan (06/24/2022 5:06 PM COMMERCIAL COLLECTIONS DRIVER): UA on 3/2 with nitrates and >50 WBC. No urine cultures with MDR. Started IV ceftriaxone. Might be adding some component to the AMS, but no change noted with treatment with IV Ceftriaxone (3/2-c). Urine Cx growing Klebsiella variicola. Sensitivities include ceftriaxone. Pt completed 7 day course 06/22/22. Checked for urinary retention, bladder scan negative. Assessment & Plan (06/23/2022 3:59 PM COMMERCIAL COLLECTIONS DRIVER): UA on 3/2 with nitrates and >50 WBC. No urine cultures with MDR. Started IV ceftriaxone. Might be adding some component to the AMS, but no change noted with treatment with IV Ceftriaxone (3/2-c). Urine Cx growing Klebsiella variicola. Sensitivities include ceftriaxone. Pt completed 7 day course 06/22/22. Checked for urinary retention, bladder scan negative. Assessment & Plan (06/22/2022 4:16 PM COMMERCIAL COLLECTIONS DRIVER): UA on 3/2 with nitrates and >50 WBC. No urine cultures with MDR. Started IV ceftriaxone. Might be adding some component to the AMS, but no change noted with treatment with IV Ceftriaxone (3/2-c). Pt completed 7 day course 06/22/22. Checked for urinary retention, bladder scan negative. -Urine Cx growing Klebsiella variicola. Sensitivities back. S to CTX Assessment & Plan (06/21/2022 3:31 PM COMMERCIAL COLLECTIONS DRIVER): UA on 3/2 with nitrates and >50 WBC. No urine cultures with MDR. Started IV ceftriaxone. Might be adding some component to the AMS. -Ceftriaxone 3/2- completes 7 day course on 06/22/22. Check for urinary retention, bladder scan negative. -Urine Cx growing Klebsiella variicola. Sensitivities back. S to CTX Assessment & Plan (06/19/2022 10:12 PM COMMERCIAL COLLECTIONS DRIVER): UA on 3/2 with nitrates and >50 WBC. No urine cultures with MDR. Will start him on ceftriaxone while urine culture results. Might be adding some component to the AMS. -Ceftriaxone 3/2- complete 7 day course. Check for urinary retention. -Urine Cx growing Klebsiella variicola. Sensitivities back. S to CTX Assessment & Plan (06/16/2022 12:04 PM COMMERCIAL COLLECTIONS DRIVER): UA on 3/2 with nitrates and >50 WBC. No urine cultures with MDR. Will start him on ceftriaxone while urine culture results. Might be adding some component to the AMS. -Ceftriaxone 3/2- -Urine Cx growing Klebsiella variicola. Sensitivities pending. Assessment & Plan (06/15/2022 1:24 PM COMMERCIAL COLLECTIONS DRIVER): UA on 32 with nitrates and >50 [...] CT abd/p w/o 06/25 unremarkable. Tsat 15% (3/21/23)-- IV Fe x1 dose (07/05) Assessment & [...] unremarkable. Assessment & Plan (06/24/2022 5:03 PM COMMERCIAL COLLECTIONS DRIVER): Normocytic. AOCD pattern on labs. Likely from GIN, serious illness, frequent blood draws, etc. -Intermittently requiring PRBC last 06/03/22. F/u Hb 7.8, limit routine labs. No evidence of hematuria, melena or hematochezia. Assessment & Plan (06/23/2022 3:48 PM COMMERCIAL COLLECTIONS DRIVER): Normocytic. AOCD pattern on labs. Likely from GIN, serious illness, frequent blood draws, etc. -Intermittently requiring PRBC last 06/03/22. F/u Hb 7.3, limit routine labs. No evidence of hematuria, melena or hematochezia. Assessment & Plan (06/22/2022 4:08 PM COMMERCIAL COLLECTIONS DRIVER): Normocytic. AOCD pattern on labs. Likely from GIN, serious illness, frequent blood draws, etc. -Intermittently requiring PRBC last 06/03/22. F/u Hb 7.3, limit routine labs. No evidence of hematuria, melena or hematochezia. Assessment & Plan (06/21/2022 3:23 PM COMMERCIAL COLLECTIONS DRIVER): Normocytic. AOCD pattern on labs. Likely from GIN, serious illness, frequent blood draws, etc. -Intermittently requiring PRBC last 06/03/22. F/u Hb 7.5, limit routine labs. Assessment & Plan (06/20/2022 6:09 PM COMMERCIAL COLLECTIONS DRIVER): Normocytic. AOCD pattern on labs. Likely from GIN, serious illness, frequent blood draws, etc. -Intermittently requiring PRBC last 06/03/21. F/u Hb 7.5, limit routine labs. Assessment & Plan (06/16/2022 11:57 AM COMMERCIAL COLLECTIONS DRIVER): Normocytic. AOCD pattern on labs. Likely from GIN, serious illness, frequent blood draws, etc. -Intermittently requiring PRBC last 06/03/21. Assessment & Plan (06/15/2022 1:22 PM COMMERCIAL COLLECTIONS DRIVER): Normocytic. AOCD pattern on labs. Likely from GIN, serious illness, frequent blood draws, etc. -Intermittently requiring PRBC last 06/03/21. Assessment & Plan (06/14/2022 2:26 PM COMMERCIAL COLLECTIONS DRIVER): Normocytic. AOCD pattern on labs. Likely from GIN, serious illness, frequent blood draws, etc. -Intermittently requiring PRBC last 06/03/21. F/u Hb 8.1. Assessment & Plan (06/13/2022 4:10 PM COMMERCIAL COLLECTIONS DRIVER): Normocytic. AOCD pattern on labs. Likely from GIN, serious illness, frequent blood draws, etc. -Intermittently requiring PRBC last 06/03/21. F/u Hb 8.1. Assessment & Plan (06/12/2022 6:17 PM COMMERCIAL COLLECTIONS DRIVER): Normocytic. AOCD pattern on labs. Likely from GIN, serious illness, frequent blood draws, etc. - intermittently requiring PRBC last 06/03/21. F/u Hb 8.1. Billing statement. I have reviewed current Hb 8.5, remains stable post recent transfusion with HD stability. Plan to limit blood draws, monitor serial counts for additional needs. Transfuse PRN Hb<7. Assessment & Plan (06/11/2022 4:33 PM COMMERCIAL COLLECTIONS DRIVER): Normocytic. AOCD pattern on labs. Likely from GIN, serious illness, frequent blood draws, etc. - intermittently requiring PRBC last 06/03/21. F/u Hb 8.1. Billing statement. I have reviewed current Hb 8.5, remains stable post recent transfusion with HD stability. Plan to limit blood draws, monitor serial counts for additional needs. Transfuse PRN Hb<7 Assessment & Plan (06/10/2022 3:23 PM COMMERCIAL COLLECTIONS DRIVER): Normocytic. AOCD pattern on labs. Likely from GIN, serious illness, frequent blood draws, etc. - intermittently requiring PRBC last 06/03/21. F/u Hb 8.1. Billing statement. I have reviewed current Hb 8.1, remains stable post recent transfusion with HD stability. Plan to limit blood draws, monitor serial counts for additional needs. Transfuse PRN Hb<7 Assessment & Plan (06/10/2022 9:24 AM COMMERCIAL COLLECTIONS DRIVER): Normocytic. AOCD pattern on labs. Likely from GNI, serious illness, frequent blood draws, etc. - intermittently requiring PRBC last 06/03/21. F/u Hb 8.1. Billing statement. I have reviewed current Hb 8.1, remains stable post recent transfusion with HD stability. Plan to limit blood draws, monitor serial counts for additional needs. Transfuse PRN Hb<7 Assessment & Plan (06/08/2022 4:02 PM COMMERCIAL COLLECTIONS DRIVER): Normocytic. AOCD pattern on labs. Likely from GIN, serious illness, frequent blood draws, etc. - intermittently requiring PRBC last 06/03/21. F/u Hb 8.1. Billing statement. I have reviewed current Hb 8.1, remains stable post recent transfusion with HD stability. Plan to limit blood draws, monitor serial counts for additional needs. Assessment & Plan (06/07/2022 11:00 AM COMMERCIAL COLLECTIONS DRIVER): Normocytic. AOCD pattern on labs. Likely from GIN, serious illness, frequent blood draws, etc. - intermittently requiring PRBC last 06/03/21 Billing statement. I have reviewed current Hb 8.1, remains stable post recent transfusion with HD stability. Plan to limit blood draws, monitor serial counts for additional needs. Assessment & Plan (06/06/2022 6:31 PM COMMERCIAL COLLECTIONS DRIVER): Normocytic. 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 - intermittently requiring PRBC last 06/03 Billing statement. I have reviewed current Hb 8.1, remains stable post transfusion. Plan to limit blood draws, monitor serial counts. Assessment & Plan (06/05/2022 2:00 PM COMMERCIAL COLLECTIONS DRIVER): - Normocytic. 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 - intermittently requiring PRBC last 06/03 Assessment & Plan (06/04/2022 11:09 AM COMMERCIAL COLLECTIONS DRIVER): - Normocytic. 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 - f/u CBC today p 1 unit PRBC 06/03 Assessment & Plan (06/03/2022 2:57 PM COMMERCIAL COLLECTIONS DRIVER): - Normocytic. 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 - requiring 1 unit PRBC today for slow drop likely AOCD and lab draws Assessment & Plan (06/02/2022 2:26 PM COMMERCIAL COLLECTIONS DRIVER): - Normocytic. 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 - cont to monitor H/H, transfuse for Hb < 7, remains relatively stable but at borderline of requiring PRBC Assessment & Plan (06/01/2022 2:18 PM COMMERCIAL COLLECTIONS DRIVER): - Normocytic. 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 - cont to monitor H/H, transfuse for Hb < 7, remains relatively stable but at borderline of requiring PRBC Assessment & Plan (05/31/2022 2:57 PM COMMERCIAL COLLECTIONS DRIVER): - Normocytic. 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 - cont to monitor H/H, transfuse for Hb < 7 Assessment & Plan (05/30/2022 2:03 PM COMMERCIAL COLLECTIONS DRIVER): - Normocytic. 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 - cont to monitor H/H, transfuse for Hb < 7 Assessment & Plan (05/29/2022 3:13 PM COMMERCIAL COLLECTIONS DRIVER): Normocytic. B12, folate normal. Likely from GIN, serious illness, frequent blood draws, etc. Drop over last 24 hrs likely dilutional due to IVF. No e/o bleeding - cont to monitor H/H, transfuse for Hb < 7 - ferritin high, c/w anemia of chronic dz Assessment & Plan (05/28/2022 1:53 PM COMMERCIAL COLLECTIONS DRIVER): Normocytic. B12, folate normal. Likely from GIN, serious illness, frequent blood draws, etc. Drop over last 24 hrs likely dilutional due to IVF. No e/o bleeding - cont to monitor H/H, transfuse for Hb < 7 - ferritin high, c/w anemia of chronic dz Assessment & Plan (05/27/2022 3:53 PM COMMERCIAL COLLECTIONS DRIVER): Normocytic. B12, folate normal. Likely from GIN, serious illness, frequent blood draws, etc. Drop over last 24 hrs likely dilutional due to IVF. No e/o bleeding - cont to monitor H/H, transfuse for Hb < 7 - ferritin high, c/w anemia of chronic dz Assessment & Plan (05/26/2022 1:22 PM COMMERCIAL COLLECTIONS DRIVER): Normocytic. B12, folate normal. Likely from GIN, [...] -Apparently can get denosumab but would need SERVICE CONSULTANT approval. Appreciate nephrology help sensipar not an [...] -Apparently can get denosumab but would need SERVICE CONSULTANT approval. Appreciate nephrology help sensipar not an [...] status. Assessment & Plan (06/24/2022 5:06 PM COMMERCIAL COLLECTIONS DRIVER): Normocalcemic on arrival. Uncorrected Ca as high [...] -Apparently can get denosumab but would need SERVICE CONSULTANT approval. Appreciate nephrology help sensipar not an [...] am. Assessment & Plan (06/23/2022 3:58 PM COMMERCIAL COLLECTIONS DRIVER): Normocalcemic on arrival. Uncorrected Ca as high [...] -Apparently can get denosumab but would need SERVICE CONSULTANT approval. Appreciate nephrology help sensipar not an [...] 06/23. Assessment & Plan (06/22/2022 4:15 PM COMMERCIAL COLLECTIONS DRIVER): Normocalcemic on arrival. Uncorrected Ca as high [...] -Apparently can get denosumab but would need SERVICE CONSULTANT approval. Appreciate nephrology help sensipar not an [...] iCa. Assessment & Plan (06/21/2022 3:27 PM COMMERCIAL COLLECTIONS DRIVER): Normocalcemic on arrival. Uncorrected Ca as high [...] -Apparently can get denosumab but would need SERVICE CONSULTANT approval. Appreciate nephrology help sensipar not an [...] response. Assessment & Plan (06/20/2022 6:15 PM COMMERCIAL COLLECTIONS DRIVER): Normocalcemic on arrival. Uncorrected Ca as high [...] -Apparently can get denosumab but would need SERVICE CONSULTANT approval. Appreciate nephrology help sensipar not an [...] approval. Assessment & Plan (06/16/2022 11:57 AM COMMERCIAL COLLECTIONS DRIVER): Normocalcemic on arrival. Uncorrected Ca as high [...] low level hyperCa. Recommend continued NPO by [facility] 06/08. - Continue water flushes per tube (300 q4). - Ca++ increased today: 12.1 (11.9). - if Cr continues to downtrend may be able to consider bisphosphonate. 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 - Cosyntropin test within normal limits, AI ruled out. - 1L of IVF today Assessment & Plan (06/15/2022 1:22 PM COMMERCIAL COLLECTIONS DRIVER): Normocalcemic on arrival. Uncorrected Ca as high [...] low level hyperCa. Recommend continued NPO by [facility] 06/08. - Continue water flushes per tube (300 q4). - Ca++ increased today: 12.1 (11.9). - if Cr continues to downtrend may be able to consider bisphosphonate. 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 - Cosyntropin test within normal limits, AI ruled out. Assessment & Plan (06/14/2022 2:26 PM COMMERCIAL COLLECTIONS DRIVER): Normocalcemic on arrival. Uncorrected Ca as high [...] low level hyperCa. Recommend continued NPO by [facility] 06/08. - Continue water flushes per tube (300 q4). - Ca++ increased today: 12.1 (11.9). - if Cr continues to downtrend may be able to consider bisphosphonate. 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 Recommending ordering cosyntropin to rule out adrenal insufficiency. Assessment & Plan (06/13/2022 4:03 PM COMMERCIAL COLLECTIONS DRIVER): Normocalcemic on arrival. Uncorrected Ca as high [...] low level hyperCa. Recommend continued NPO by [facility] 06/08. - Continue water flushes per tube (300 q4). - Ca++ decreased today: 11.9 (12.8). - if Cr continues to downtrend may be able to consider bisphosphonate. - Continue to monitor Assessment & Plan (06/12/2022 6:20 PM COMMERCIAL COLLECTIONS DRIVER): Normocalcemic on arrival. Uncorrected Ca as high [...] supplementation. Assessment & Plan (06/11/2022 4:35 PM COMMERCIAL COLLECTIONS DRIVER): Normocalcemic on arrival. Uncorrected Ca as high [...] low level hyperCa. Recommend continued NPO by [facility] 06/08. - cont water per tube (300 [...] supplementation. Assessment & Plan (06/10/2022 3:28 PM COMMERCIAL COLLECTIONS DRIVER): Normocalcemic on arrival. Uncorrected Ca as high [...] low level hyperCa. Recommend continued NPO by [facility] 06/08. - cont water per tube (300 [...] supplementation. Assessment & Plan (06/10/2022 9:27 AM COMMERCIAL COLLECTIONS DRIVER): Normocalcemic on arrival. Uncorrected Ca as high [...] supplementation. Assessment & Plan (06/08/2022 4:09 PM COMMERCIAL COLLECTIONS DRIVER): Normocalcemic on arrival. Uncorrected Ca as high [...] supplementation. Assessment & Plan (06/07/2022 11:04 AM COMMERCIAL COLLECTIONS DRIVER): Normocalcemic on arrival. Uncorrected Ca as high [...] supplementation. Assessment & Plan (06/06/2022 6:40 PM COMMERCIAL COLLECTIONS DRIVER): Normocalcemic on arrival. Uncorrected Ca as high [...] supplementation. Assessment & Plan (06/05/2022 1:59 PM COMMERCIAL COLLECTIONS DRIVER): - Normocalcemic on arrival. Uncorrected Ca as [...] now Assessment & Plan (06/04/2022 11:09 AM COMMERCIAL COLLECTIONS DRIVER): - Normocalcemic on arrival. Uncorrected Ca as [...] considered Assessment & Plan (06/03/2022 2:56 PM COMMERCIAL COLLECTIONS DRIVER): - Normocalcemic on arrival. Uncorrected Ca as [...] 11.4 Assessment & Plan (06/02/2022 2:25 PM COMMERCIAL COLLECTIONS DRIVER): - Normocalcemic on arrival. Uncorrected Ca as [...] IVF Assessment & Plan (06/01/2022 2:18 PM COMMERCIAL COLLECTIONS DRIVER): - Normocalcemic on arrival. Uncorrected Ca as [...] d/c Assessment & Plan (05/31/2022 2:57 PM COMMERCIAL COLLECTIONS DRIVER): - Normocalcemic on arrival. Uncorrected Ca as [...] stable/downtrending Assessment & Plan (05/30/2022 2:01 PM COMMERCIAL COLLECTIONS DRIVER): - Normocalcemic on arrival. Uncorrected Ca as [...] improve Assessment & Plan (05/29/2022 3:13 PM COMMERCIAL COLLECTIONS DRIVER): - Normocalcemic on arrival. Uncorrected Ca as [...] improve Assessment & Plan (05/28/2022 1:52 PM COMMERCIAL COLLECTIONS DRIVER): - Normocalcemic on arrival. Uncorrected Ca as [...] improve Assessment & Plan (05/27/2022 3:52 PM COMMERCIAL COLLECTIONS DRIVER): - Normocalcemic on arrival. Uncorrected Ca as [...] today Assessment & Plan (05/26/2022 1:19 PM COMMERCIAL COLLECTIONS DRIVER): - Normocalcemic on arrival. Uncorrected Ca as [...] IVF Assessment & Plan (05/27/2022 3:53 PM COMMERCIAL COLLECTIONS DRIVER): - Has been hypo- and hypernatremic during course Sodium now normal, cont to monitor daily BMP Assessment & Plan (05/26/2022 1:19 PM COMMERCIAL COLLECTIONS DRIVER): - Has been hypo- and hypernatremic during course Sodium now normal, cont to monitor daily BMP Cervical stenosis of spine 09/19/2021 Overview (09/19/2021): Added automatically from request for surgery [id number] Assessment & Plan (11/10/2022 9:33 AM CDT): [...] need NSGY clinic OP follow up at [place]; NSGY to arrange; Dr. Casas no longer at [facility] Assessment & Plan (06/26/2022 5:11 PM CDT): Presented for elective C 3-5 ACDF and C3-7 posterior fusion on 03/17/22. Sutures out. NSurg f/u appreciated. Plan MRI c/t spine as above, assess for structural or occult infection (unlikely). Touch base with neurosurgery when imaging available Elevated ESR, CRP. Will need NSGY clinic OP follow up at [place]. Surgical incision healed well. No muscular spasticity [...] need NSGY clinic OP follow up at [place]. Surgical incision healed well. No muscular spasticity noted on LE exam. Bilateral strength intact. Therapy per neurosurgery, if able to participate, currently doesn't follow commands. Assessment & Plan (06/24/2022 5:04 PM COMMERCIAL COLLECTIONS DRIVER): Presented for elective C 3-5 ACDF and C3-7 posterior fusion on 03/17/22. Sutures out. NSurg f/u appreciated. Plan MRI c/t spine as above, assess for structural or occult infection (unlikely). Will need NSGY clinic OP follow up at [place]. Surgical incision healed well. No muscular spasticity noted on LE exam. Bilateral strength intact. Therapy per neurosurgery, if able to participate, currently doesn't follow commands. Assessment & Plan (06/23/2022 3:49 PM COMMERCIAL COLLECTIONS DRIVER): Presented for elective C 3-5 ACDF and C3-7 posterior fusion on 03/17/22. Sutures out. NSurg f/u appreciated. Will need NSGY clinic OP follow up at [place]. Surgical incision healed well. No muscular spasticity noted on LE exam. Bilateral strength intact. Therapy per neurosurgery, if able to participate, currently doesn't follow commands. Assessment & Plan (06/22/2022 4:10 PM COMMERCIAL COLLECTIONS DRIVER): Presented for elective C 3-5 ACDF and C3-7 posterior fusion on 03/17/22. Sutures out. Will need NSGY clinic OP follow up at [place]. Surgical incision healed well. No muscular spasticity noted on LE exam. Bilateral strength intact. Therapy per neurosurgery, if able to participate, currently doesn't follow commands. Assessment & Plan (06/21/2022 3:24 PM COMMERCIAL COLLECTIONS DRIVER): Presented for elective C 3-5 ACDF and C3-7 posterior fusion on 03/17/22. Sutures out. Will need NSGY clinic OP follow up at [place]. Surgical incision healed well. No muscular spasticity noted on LE exam. Therapy per neurosurgery, if able to participate. Assessment & Plan (06/20/2022 6:10 PM COMMERCIAL COLLECTIONS DRIVER): Presented for elective C 3-5 ACDF and C3-7 posterior fusion on 03/17/22. Sutures out. Will need NSGY clinic OP follow up at [place]. Surgical incision healed well. No muscular spasticity noted on LE exam. Therapy per neurosurgery, if able to participate. Assessment & Plan (06/16/2022 11:56 AM COMMERCIAL COLLECTIONS DRIVER): Presented for elective C 3-5 ACDF and C3-7 posterior fusion on 03/17/22. Sutures out. Will need NSGY clinic OP follow up at [place]. Surgical incision healed well. No muscular spasticity noted on LE exam. Therapy per neurosurgery, if able to participate. Assessment & Plan (06/15/2022 1:19 PM COMMERCIAL COLLECTIONS DRIVER): Presented for elective C 3-5 ACDF and C3-7 posterior fusion on 03/17/22. Sutures out. Will need NSGY clinic OP follow up at [place]. Surgical incision healed well. No muscular spasticity noted on LE exam. Therapy per neurosurgery, if able to participate. Assessment & Plan (06/14/2022 2:19 PM COMMERCIAL COLLECTIONS DRIVER): Presented for elective C 3-5 ACDF and C3-7 posterior fusion on 03/17/22. Sutures out. Will need NSGY clinic OP follow up at [place]. Surgical incision healed well. No muscular spasticity noted on LE exam. Therapy per neurosurgery, if able to participate. Assessment & Plan (06/13/2022 3:58 PM COMMERCIAL COLLECTIONS DRIVER): Presented for elective C 3-5 ACDF and C3-7 posterior fusion on 03/17/22. Sutures out. Will need NSGY clinic OP follow up at [place]. Surgical incision healed well. No muscular spasticity noted on LE exam. Therapy per neurosurgery, if able to participate. Assessment & Plan (06/12/2022 6:18 PM COMMERCIAL COLLECTIONS DRIVER): Presented for elective C 3-5 ACDF and C3-7 posterior fusion on 03/17/22. Sutures out. Will need NSGY clinic OP follow up at [place]. Surgical incision healed well. No muscular spasticity noted on LE exam. Therapy per neurosurgery, if able to participate. Plan DC to SNF once bed available. Assessment & Plan (06/11/2022 4:33 PM COMMERCIAL COLLECTIONS DRIVER): Presented for elective C 3-5 ACDF and C3-7 posterior fusion on 03/17/22. Sutures out. Will need NSGY clinic OP follow up at [place]. Surgical incision healed well. No muscular spasticity noted on exam. Therapy per neurosurgery. Plan DC to SNF once bed available. Assessment & Plan (06/10/2022 3:23 PM COMMERCIAL COLLECTIONS DRIVER): Presented for elective C 3-5 ACDF and C3-7 posterior fusion on 03/17/22. Sutures out. Will need NSGY clinic OP follow up at [place]. Surgical incision healing well. No muscular spasticity noted on exam. Therapy per neurosurgery. Plan DC to SNF once bed available. Assessment & Plan (06/10/2022 9:24 AM COMMERCIAL COLLECTIONS DRIVER): Presented for elective C 3-5 ACDF and C3-7 posterior fusion on 03/17/22. Sutures out. Will need NSGY clinic OP follow up at [place]. Surgical incision healing well. No muscular spasticity noted on exam. Therapy per neurosurgery. Plan DC to SNF Assessment & Plan (06/08/2022 3:56 PM COMMERCIAL COLLECTIONS DRIVER): Presented for elective C 3-5 ACDF and C3-7 posterior fusion on 03/17/22. Sutures out. Will need NSGY clinic OP follow up at [place]. Surgical incision healing well. No muscular spasticity noted on exam. Assessment & Plan (06/07/2022 10:57 AM COMMERCIAL COLLECTIONS DRIVER): Presented for elective C 3-5 ACDF and C3-7 posterior fusion on 03/17/22. Sutures out. Will need NSGY clinic OP follow up at [place]. Surgical incision healing well. No muscular spasticity noted on exam. Assessment & Plan (06/06/2022 6:33 PM COMMERCIAL COLLECTIONS DRIVER): Presented for elective C 3-5 ACDF and C3-7 posterior fusion on 03/17. Sutures out. Will need NSGY follow up at [place]. Surgical incision healing well. No muscular spasticity noted on exam. Assessment & Plan (06/05/2022 2:02 PM COMMERCIAL COLLECTIONS DRIVER): - Presented for elective C 3-5 ACDF and C3-7 posterior fusion on 03/17. Sutures out. Will need NSGY follow up at [place]. Assessment & Plan (05/31/2022 2:57 PM COMMERCIAL COLLECTIONS DRIVER): - Presented for elective C 3-5 ACDF and C3-7 posterior fusion on 03/17. Sutures out. Will need NSGY follow up at [place]. Assessment & Plan (05/30/2022 2:04 PM COMMERCIAL COLLECTIONS DRIVER): - Presented for elective C 3-5 ACDF and C3-7 posterior fusion on 03/17. Sutures out. Will need NSGY follow up at [place]. Assessment & Plan (05/29/2022 3:13 PM COMMERCIAL COLLECTIONS DRIVER): - Presented for elective C 3-5 ACDF and C3-7 posterior fusion on 03/17. Sutures out. Will need NSGY follow up at [place]. Assessment & Plan (05/28/2022 1:53 PM COMMERCIAL COLLECTIONS DRIVER): - Presented for elective C 3-5 ACDF and C3-7 posterior fusion on 03/17. Sutures out. Will need NSGY follow up at [place]. Assessment & Plan (05/27/2022 3:53 PM COMMERCIAL COLLECTIONS DRIVER): - Presented for elective C 3-5 ACDF and C3-7 posterior fusion on 03/17. Sutures out. Will need NSGY follow up at [place]. Assessment & Plan (05/25/2022 3:16 PM COMMERCIAL COLLECTIONS DRIVER): - Presented for elective C 3-5 ACDF and C3-7 posterior fusion on 03/17. Sutures out. Will need NSGY follow up at [place]. Strangulated inguinal hernia 09/19/2021 Overview (04/09/2022): Added automatically from request for surgery [id number] Assessment & Plan (08/16/2022 5:36 PM CDT): [...] stranding. Assessment & Plan (06/23/2022 4:00 PM COMMERCIAL COLLECTIONS DRIVER): S/p ex lap and repair 04/09. Had evidence of intestinal ischemia. Well healed incision. -Still NPO, swallow study redone given his being more awake, but speech recommends continued NPO status. On J tube feeds. Assessment & Plan (06/22/2022 4:16 PM COMMERCIAL COLLECTIONS DRIVER): S/p ex lap and repair 04/09. Had evidence of intestinal ischemia. Well healed incision. -Still NPO, swallow study redone given his being more awake, but speech recommends continued NPO status. Assessment & Plan (06/21/2022 3:27 PM COMMERCIAL COLLECTIONS DRIVER): S/p ex lap and repair 04/09. Had evidence of intestinal ischemia. Well healed incision. -Still NPO, swallow study redone given his being more awake, but speech recommends continued NPO status. Assessment & Plan (06/20/2022 6:16 PM COMMERCIAL COLLECTIONS DRIVER): S/p ex lap and repair 04/09. Had evidence of intestinal ischemia. Well healed incision. -Still NPO, swallow study redone given his being more awake, but speech recommends continued NPO status. Assessment & Plan (06/16/2022 11:56 AM COMMERCIAL COLLECTIONS DRIVER): S/p ex lap and repair 04/09. Had evidence of intestinal ischemia. Well healed incision. -Tolerating TF at goal per Gtube. Nutritional needs appear to be getting met. -Remains NPO per speech follow up on 06/14. Ok to do ice chips. Assessment & Plan (06/15/2022 1:20 PM COMMERCIAL COLLECTIONS DRIVER): S/p ex lap and repair 04/09. Had evidence of intestinal ischemia. Well healed incision. -Tolerating TF at goal per Gtube. Nutritional needs appear to be getting met. -Remains NPO per speech follow up on 06/14. Ok to do ice chips. Assessment & Plan (06/14/2022 2:20 PM COMMERCIAL COLLECTIONS DRIVER): S/p ex lap and repair 04/09. Had evidence of intestinal ischemia. Well healed incision. -Tolerating TF at goal per Gtube. Nutritional needs appear to be getting met. -Remains NPO per speech follow up on 06/08. Ok to do ice chips. Assessment & Plan (06/13/2022 3:59 PM COMMERCIAL COLLECTIONS DRIVER): S/p ex lap and repair 04/09. Had evidence of intestinal ischemia. Well healed incision. -Tolerating TF at goal per Gtube. Nutritional needs appear to be getting met. -Remains NPO per speech follow up on 06/08. Assessment & Plan (06/12/2022 6:20 PM COMMERCIAL COLLECTIONS DRIVER): S/p ex lap and repair 04/09. Had evidence of intestinal ischemia. Well healed incision. - tolerating TF per Gtube. Nutritional needs appear to be getting met. -Remains NPO per speech f/u 06/08. Billing statement I have reviewed electrolytes, K 3.6, ca 12.5. Discussed with RN and no tube feed residuals. Plan strict aspiration precautions, further advance diet and adjust tube feeds per christian science practitioner. Plan to recheck bed weight. Assessment & Plan (06/11/2022 4:35 PM COMMERCIAL COLLECTIONS DRIVER): S/p ex lap and repair 04/09. Had evidence of intestinal ischemia. Well healed incision. - tolerating TF per Gtube. Nutritional needs appear to be getting met. -Remains NPO per speech f/u 06/08. Billing statement I have reviewed electrolytes, K 3.6, ca 12.5. Discussed with RN and no tube feed residuals. Plan strict aspiration precautions, further advance diet and adjust tube feeds per christian science practitioner. Plan to recheck bed weight. Assessment & Plan (06/10/2022 3:30 PM COMMERCIAL COLLECTIONS DRIVER): S/p ex lap and repair 04/09. Had evidence of intestinal ischemia. Well healed incision. - tolerating TF per Gtube. Nutritional needs appear to be getting met. -Remains NPO per speech f/u 06/08. Billing statement I have reviewed electrolytes, K 3.6, ca 12.8. Discussed with RN and no tube feed residuals. Plan strict aspiration precautions, further advance diet and adjust tube feeds per christian science practitioner. Plan to recheck bed weight. Assessment & Plan (06/10/2022 9:27 AM COMMERCIAL COLLECTIONS DRIVER): S/p ex lap and repair 04/09. Had evidence of intestinal ischemia. Well healed incision. - tolerating TF per Gtube. Nutritional needs appear to be getting met. - ADAT per speech. Billing statement I have reviewed electrolytes, K 3.3, ca 10.6. Discussed with RN and no tube feed residuals. Plan strict aspiration precautions, further advance diet and adjust tube feeds per christian science practitioner. Plan to recheck bed weight. Assessment & Plan (06/08/2022 4:11 PM COMMERCIAL COLLECTIONS DRIVER): S/p ex lap and repair 04/09. Had evidence of intestinal ischemia. Well healed incision. - tolerating TF per Gtube. Nutritional needs appear to be getting met. - ADAT per speech. Billing statement I have reviewed electrolytes, K 3.3, ca 10.6. Discussed with RN and no tube feed residuals. Plan further advance diet and adjust tube feeds per christian science practitioner. Plan to recheck bed weight. Assessment & Plan (06/07/2022 11:08 AM COMMERCIAL COLLECTIONS DRIVER): S/p ex lap and repair 04/09. Had [...] weight. Assessment & Plan (06/06/2022 6:41 PM COMMERCIAL COLLECTIONS DRIVER): - S/p ex lap and repair 04/09. Had evidence of intestinal ischemia. Well healed incision. - tolerating TF per Gtube. - NPO per speech. Billing statement I have reviewed electrolytes, K 3.3, ca 10.6. Discussed with RN and no tube feed residuals. Plan to continue tube feeds at current rate. Assessment & Plan (06/05/2022 2:01 PM COMMERCIAL COLLECTIONS DRIVER): - S/p ex lap and repair 04/09. Had evidence of intestinal ischemia. Well healed incision. - tolerating TF - NPO per speech Assessment & Plan (06/04/2022 11:09 AM COMMERCIAL COLLECTIONS DRIVER): - S/p ex lap and repair 04/09. Had evidence of intestinal ischemia. Well healed incision. - tolerating TF - NPO per speech Assessment & Plan (06/02/2022 2:26 PM COMMERCIAL COLLECTIONS DRIVER): - S/p ex lap and repair 04/09. Had evidence of intestinal ischemia. Well healed incision. - tolerating TF - NPO per speech Assessment & Plan (06/01/2022 2:18 PM COMMERCIAL COLLECTIONS DRIVER): - S/p ex lap and repair 04/09. Had evidence of intestinal ischemia. Well healed incision. - tolerating TF - NPO per speech Assessment & Plan (05/31/2022 2:57 PM COMMERCIAL COLLECTIONS DRIVER): - S/p ex lap and repair 04/09. Had evidence of intestinal ischemia. Well healed incision. - tolerating TF - NPO per speech Assessment & Plan (05/30/2022 2:04 PM COMMERCIAL COLLECTIONS DRIVER): - S/p ex lap and repair 04/09. Had evidence of intestinal ischemia. Well healed incision. - tolerating TF - NPO 2/2 mental status Assessment & Plan (05/29/2022 3:13 PM COMMERCIAL COLLECTIONS DRIVER): - S/p ex lap and repair 04/09. Had evidence of intestinal ischemia. Well healed incision. Assessment & Plan (05/28/2022 1:53 PM COMMERCIAL COLLECTIONS DRIVER): - S/p ex lap and repair 04/09. Had evidence of intestinal ischemia. Well healed incision. Assessment & Plan (05/27/2022 3:53 PM COMMERCIAL COLLECTIONS DRIVER): - S/p ex lap and repair 04/09. Had evidence of intestinal ischemia. Well healed incision. Assessment & Plan (05/25/2022 3:17 PM COMMERCIAL COLLECTIONS DRIVER): - S/p ex lap and repair 04/09. Had evidence of intestinal ischemia. Well healed incision. Age-related osteoporosis wit hout current pathological fracture 08/23/2021 Assessment & Plan (10/25/2021 3:35 PM CDT): Not well controlled, patient also has hypo vitamin-D Will start alendronate 70 mg weekly Continue ergocalciferol 37749 units weekly Ensure calcium approximately 1000 mg [...] (01/27/2021): Added automatically from request for surgery [id number] Bilateral primary osteoarthritis of knee 021 Assessment [...] ambulation Assessment & Plan (04/29/2021 11:06 AM COMMERCIAL COLLECTIONS DRIVER): Stable, patient reports occasional episodes of vertigo, [...] Stable. Assessment & Plan (06/24/2022 5:04 PM COMMERCIAL COLLECTIONS DRIVER): History of COPD. Managed with Budesonide nebs and PRN albuterol. Prior exacerbation treatment this stay, currently controlled. Currently on RA, no wheezing. Unable to follow commands for MDI, continue nebulizers with RT and doing well. Stable. Assessment & Plan (06/23/2022 3:49 PM COMMERCIAL COLLECTIONS DRIVER): History of COPD. Managed with Budesonide nebs and PRN albuterol. Prior exacerbation treatment this stay, currently controlled. Currently on RA, no wheezing. -Unable to follow commands for MDI, continue nebulizers with RT and doing well. Assessment & Plan (06/22/2022 4:10 PM COMMERCIAL COLLECTIONS DRIVER): History of COPD. Managed with Budesonide nebs and PRN albuterol. Prior exacerbation treatment this stay, currently controlled. Currently on RA, no wheezing. -Unable to follow commands for MDI, continue nebulizers and doing well. Assessment & Plan (06/21/2022 3:24 PM COMMERCIAL COLLECTIONS DRIVER): History of COPD. Managed with Budesonide nebs and PRN albuterol. Prior exacerbation treatment this stay, currently controlled. Currently on RA, no wheezing. -Unable to follow commands for MDI, continue nebs. Doing well. Assessment & Plan (06/20/2022 6:10 PM COMMERCIAL COLLECTIONS DRIVER): History of COPD. Managed with Budesonide nebs and PRN albuterol. Prior exacerbation treatment this stay, currently controlled. Currently on RA, no wheezing. -Unable to follow commands for MDI, continue nebs. Doing well. Assessment & Plan (06/16/2022 11:50 AM COMMERCIAL COLLECTIONS DRIVER): History of COPD. Managed with Budesonide nebs and PRN albuterol. Prior exacerbation treatment this stay, currently controlled. Currently on RA, no wheezing. -Unable to follow commands for MDI, continue nebs. Assessment & Plan (06/15/2022 1:18 PM COMMERCIAL COLLECTIONS DRIVER): History of COPD. Managed with Budesonide nebs and PRN albuterol. Prior exacerbation treatment this stay, currently controlled. Currently on RA, no wheezing. -Unable to follow commands for MDI, continue nebs. Assessment & Plan (06/14/2022 2:19 PM COMMERCIAL COLLECTIONS DRIVER): History of COPD. Managed with Budesonide nebs and PRN albuterol. Prior exacerbation treatment this stay, currently controlled. Currently on RA, no wheezing. -Unable to follow commands for MDI, continue nebs. Assessment & Plan (06/13/2022 3:55 PM COMMERCIAL COLLECTIONS DRIVER): History of COPD. Managed with Budesonide nebs and PRN albuterol. Prior exacerbation treatment this stay, currently controlled. Currently on RA, no wheezing. -Unable to follow commands for MDI, continue nebs. Assessment & Plan (06/12/2022 6:18 PM COMMERCIAL COLLECTIONS DRIVER): Hx COPD. Managed Budesonide nebs and PRN [...] plan. Assessment & Plan (06/11/2022 4:33 PM COMMERCIAL COLLECTIONS DRIVER): Hx COPD. Managed Budesonide nebs and PRN [...] plan. Assessment & Plan (06/10/2022 3:24 PM COMMERCIAL COLLECTIONS DRIVER): Hx COPD. Managed Budesonide nebs and PRN albuterol. Prior exacerbation treatment this stay, currently controlled On 2L-RA. Unable to follow commands for MDI, continue nebs. Billing statement Reviewed O2 requirements last 24hrs and recent chest imaging, exam without wheezing but encephalopathy limits use of MDIs. Plan to continue nebs as prescribed. No change in current plan. Assessment & Plan (06/10/2022 9:25 AM COMMERCIAL COLLECTIONS DRIVER): Hx COPD. Managed Budesonide nebs and PRN albuterol. Prior exacerbation treatment this stay, currently controlled On 2L-RA. Billing statement Reviewed O2 requirements last 24hrs and recent chest imaging, exam without wheezing but encephalopathy limits use of MDIs. Plan to continue nebs as prescribed. No change in current plan. Assessment & Plan (06/08/2022 4:03 PM COMMERCIAL COLLECTIONS DRIVER): Hx COPD. Managed Budesonide nebs and PRN albuterol. Prior exacerbation treatment this stay, currently controlled On 2L-RA. Billing statement Reviewed O2 requirements last 24hrs and recent chest imaging, exam without wheezing but encephalopathy limits use of MDIs. Plan to continue nebs as prescribed. Assessment & Plan (06/07/2022 11:02 AM COMMERCIAL COLLECTIONS DRIVER): - Budesonide nebs and PRN albuterol. Prior exacerbation treatment this stay, currently controlled On RA Billing statement Reviewed O2 requirements last 24hrs and recent chest imaging, exam without wheezing but encephalopathy limits use of MDIs. Plan to continue nebs as prescribed. Assessment & Plan (06/06/2022 6:34 PM COMMERCIAL COLLECTIONS DRIVER): - Budesonide nebs and PRN albuterol. Prior exacerbation treatment this stay, currently controlled On RA Billing statement Reviewed O2 requirements and recent chest imaging. Plan DC continuous O2 sat monitoring. Assessment & Plan (06/05/2022 2:02 PM COMMERCIAL COLLECTIONS DRIVER): - Budesonide nebs and PRN albuterol. Prior exacerbation treatment this stay, currently controlled On RA Assessment & Plan (05/30/2022 2:04 PM COMMERCIAL COLLECTIONS DRIVER): - Budesonide nebs and PRN albuterol. Prior exacerbation treatment this stay, currently controlled On RA Assessment & Plan (05/29/2022 3:13 PM COMMERCIAL COLLECTIONS DRIVER): - Budesonide nebs and PRN albuterol. Prior exacerbation treatment this stay, currently controlled On RA Assessment & Plan (05/28/2022 1:53 PM COMMERCIAL COLLECTIONS DRIVER): - Budesonide nebs and PRN albuterol. Prior exacerbation treatment this stay, currently controlled On RA Assessment & Plan (05/27/2022 3:53 PM COMMERCIAL COLLECTIONS DRIVER): - Budesonide nebs and PRN albuterol. Prior exacerbation treatment this stay, currently controlled On RA Assessment & Plan (05/26/2022 1:17 PM COMMERCIAL COLLECTIONS DRIVER): - Budesonide nebs and PRN albuterol. Prior [...] Ellipta Assessment & Plan (06/07/2021 4:52 PM COMMERCIAL COLLECTIONS DRIVER): Stable, well controlled; quit smoking approximately 24 years ago Active in pulmonary rehab, walking for up to 60 minutes at a time new line rare use of rescue inhaler Continue Trelegy Ellipta 1 puff daily Assessment & Plan (04/29/2021 11:07 AM COMMERCIAL COLLECTIONS DRIVER): Stable, well controlled; patient reports he does get dyspneic especially significant exertion Follows with pulmonology for management Continue Trelegy Ellipta 1 puff daily, albuterol p.r.n. for dyspnea Assessment & Plan (02/21/2021 8:31 PM COMMERCIAL COLLECTIONS DRIVER): Continues to have significant cough, barking cough; [...] daily Assessment & Plan (06/07/2021 4:51 PM COMMERCIAL COLLECTIONS DRIVER): Stable, well controlled; continue to monitor Assessment & Plan (04/29/2021 11:07 AM COMMERCIAL COLLECTIONS DRIVER): Stable, well controlled; patient reports occasional episodes of nocturia x1 Continue finasteride 5 mg daily Assessment & Plan (05/06/2020 12:57 PM COMMERCIAL COLLECTIONS DRIVER): Patient does report increased urine frequency. UA [...] issues. Assessment & Plan (05/06/2020 12:56 PM COMMERCIAL COLLECTIONS DRIVER): Continue meclizine prn. Assessment & Plan (04/08/2020 3:22 AM COMMERCIAL COLLECTIONS DRIVER): Patient feels ataxic but [id number] and [id number] were normal. MRI is pending. Neurology has been consulted. Meclizine has not helped. Fall precautions. May need PT after MRI is completed. Assessment & Plan (04/07/2020 1:52 PM COMMERCIAL COLLECTIONS DRIVER): With new lethargy, orthostatic hypotension- I believe [...] 03/04/2019 Assessment & Plan (03/04/2019 2:55 PM COMMERCIAL COLLECTIONS DRIVER): Will do emg/ncs . Recommended cock-up wrist [...] monitor. Assessment & Plan (06/24/2022 5:05 PM COMMERCIAL COLLECTIONS DRIVER): Continue amlodipine 10 mg daily. Discontinued home HCTZ on admit. On coreg and uptitrated to 25 BID on 06/05/22. Volume stable off dialysis. No peripheral edema. -Mostly normotensive, will continue to monitor. Assessment & Plan (06/23/2022 3:49 PM COMMERCIAL COLLECTIONS DRIVER): Continue amlodipine 10 mg daily. Discontinued home HCTZ on admit. On coreg and uptitrated to 25 BID on 06/05/22. Volume stable off dialysis. -Mostly normotensive, will continue to monitor. Assessment & Plan (06/22/2022 4:11 PM COMMERCIAL COLLECTIONS DRIVER): Continue amlodipine 10 mg daily. Discontinued home HCTZ on admit. On coreg and uptitrated to 25 BID on 06/05/22. Volume stable off dialysis. -Mostly normotensive, will continue to monitor. Assessment & Plan (06/21/2022 3:25 PM COMMERCIAL COLLECTIONS DRIVER): Continue amlodipine 10 mg daily. Discontinued home HCTZ on admit. On coreg and uptitrated to 25 BID on 06/05. Volume stable. -Mostly normotensive, will continue to monitor. Assessment & Plan (06/20/2022 6:10 PM COMMERCIAL COLLECTIONS DRIVER): -Continue amlodipine 10 mg daily -Continue coreg. Uptitrated coreg 25 BID on 06/05. Volume stable. -Mostly normotensive, will continue to monitor. Assessment & Plan (06/16/2022 11:50 AM COMMERCIAL COLLECTIONS DRIVER): -Continue amlodipine 10 mg daily -Continue coreg. Uptitrated coreg 25 BID on 06/05. -Mostly normotensive, will continue to monitor. Assessment & Plan (06/15/2022 1:17 PM COMMERCIAL COLLECTIONS DRIVER): -Continue amlodipine 10 mg daily -Continue coreg. Uptitrated coreg 25 BID on 06/05. -Mostly normotensive, will continue to monitor. Assessment & Plan (06/14/2022 2:19 PM COMMERCIAL COLLECTIONS DRIVER): -Continue amlodipine 10 mg daily -Continue coreg. Uptitrated coreg 25 BID on 06/05. -Mostly normotensive, will continue to monitor. Assessment & Plan (06/13/2022 3:54 PM COMMERCIAL COLLECTIONS DRIVER): -Continue amlodipine 10 mg daily -Continue coreg. Uptitrated coreg 25 BID on 06/05. -Mostly normotensive, will continue to monitor. Assessment & Plan (06/12/2022 6:19 PM COMMERCIAL COLLECTIONS DRIVER): Cont amlodipine, coreg, uptitrated coreg to 25 bid given persistent HTN 2/20. Improved trend, continue dosing at this level. Billing statement Plan continue dual agent control. Plan monitor renal function as OP. Assessment & Plan (06/11/2022 4:34 PM COMMERCIAL COLLECTIONS DRIVER): Cont amlodipine, coreg, uptitrated coreg to 25 bid given persistent HTN 2/20. Improved trend, continue dosing at this level. Billing statement Plan continue dual agent control. Plan monitor renal function. Assessment & Plan (06/10/2022 3:25 PM COMMERCIAL COLLECTIONS DRIVER): Cont amlodipine, coreg, uptitrated coreg to 25 bid given persistent HTN 2/20. Improved trend, continue dosing at this level. Billing statement Plan continue dual agent control. Plan monitor renal function. Assessment & Plan (06/10/2022 9:25 AM COMMERCIAL COLLECTIONS DRIVER): Cont amlodipine, coreg, uptitrated coreg to 25 bid given persistent HTN 2/20. Improved trend, continue dosing at this level. Billing statement Plan continue dual agent control. Assessment & Plan (06/08/2022 4:04 PM COMMERCIAL COLLECTIONS DRIVER): Cont amlodipine, coreg, uptitrated coreg to 25 bid given persistent HTN 2/20. Improved trend, continue dosing at this level. Billing statement Plan dual agent control. Assessment & Plan (06/07/2022 11:03 AM COMMERCIAL COLLECTIONS DRIVER): Cont amlodipine, coreg, uptitrated coreg to 25 bid given persistent HTN 2/20. Improved trend, continue dosing at this level. Assessment & Plan (06/06/2022 6:35 PM COMMERCIAL COLLECTIONS DRIVER): Cont amlodipine, coreg, uptitrated coreg to 25 bid given persistent HTN 06/05. Improved trend, will hold dosing at this level. Assessment & Plan (06/05/2022 2:02 PM COMMERCIAL COLLECTIONS DRIVER): Cont amlodipine, coreg, uptitrated coreg to 25 bid given persistent HTN 06/05 Assessment & Plan (05/30/2022 2:05 PM COMMERCIAL COLLECTIONS DRIVER): Cont amlodipine, coreg Assessment & Plan (05/29/2022 3:13 PM COMMERCIAL COLLECTIONS DRIVER): Cont current meds Assessment & Plan (05/28/2022 1:53 PM COMMERCIAL COLLECTIONS DRIVER): Cont current meds Assessment & Plan (05/27/2022 3:53 PM COMMERCIAL COLLECTIONS DRIVER): Cont current meds Assessment & Plan (05/26/2022 1:17 PM COMMERCIAL COLLECTIONS DRIVER): Cont current meds Assessment & Plan (12/20/2021 [...] mg Assessment & Plan (06/07/2021 4:50 PM COMMERCIAL COLLECTIONS DRIVER): Stable, well controlled; blood pressure at target today Continue hydrochlorothiazide 25 mg daily Assessment & Plan (04/29/2021 11:04 AM COMMERCIAL COLLECTIONS DRIVER): Controlled; blood pressure at target Continue amlodipine 10 mg, to chlorothiazide 25 mg, losartan 100 mg Assessment & Plan (07/20/2020 7:39 AM CDT): Rechecked in office and was 136/78. Will continue to monitor. May need to change medication. Pt also sees cardiology. Will see him back next month and will recheck Assessment & Plan (05/06/2020 12:55 PM COMMERCIAL COLLECTIONS DRIVER): Presented with elevated BP. Presently well controlled. Continue home Amlodipine and Losartan. HCTZ is on hold as patient is currently on iv fluids. Assessment & Plan (04/08/2020 3:18 AM COMMERCIAL COLLECTIONS DRIVER): Amlodipine and losartan have been resumed with hold parameters. Holding hydrochlorothiazide as it can cause vertigo. Assessment & Plan (03/24/2020 8:24 AM COMMERCIAL COLLECTIONS DRIVER): Blood pressure is adequately controlled on current [...] recommended. Assessment & Plan (06/07/2021 4:51 PM COMMERCIAL COLLECTIONS DRIVER): Stable, well controlled; continue sertraline 100 mg [...] change. Assessment & Plan (05/06/2020 12:54 PM COMMERCIAL COLLECTIONS DRIVER): Continue home Prozac. Mood is stable at this time. Assessment & Plan (04/08/2020 3:18 AM COMMERCIAL COLLECTIONS DRIVER): Continue SSRI Assessment & Plan (03/24/2020 8:24 AM COMMERCIAL COLLECTIONS DRIVER): Stable on current medication. Continue fluoxetine as [...] mg Assessment & Plan (06/07/2021 4:50 PM COMMERCIAL COLLECTIONS DRIVER): Stable, well controlled; no side effects from current medication Continue rosuvastatin 40 mg daily Assessment & Plan (04/29/2021 11:05 AM COMMERCIAL COLLECTIONS DRIVER): Stable, well controlled LDL less than 100; continues to have elevated ASCVD risk score 24.8% Continue rosuvastatin 40 mg daily, good blood pressure control Assessment & Plan (05/06/2020 12:54 PM COMMERCIAL COLLECTIONS DRIVER): Continue home statin Assessment & Plan (04/08/2020 3:18 AM COMMERCIAL COLLECTIONS DRIVER): Continue Crestor Assessment & Plan (03/24/2020 8:24 AM COMMERCIAL COLLECTIONS DRIVER): Lipid abnormalities are stable, reviewed previous lipid [...] 03/18/2023 Assessment & Plan (06/17/2022 5:35 PM COMMERCIAL COLLECTIONS DRIVER): New dx after mild coughing noted and then called in 05/29 to note she tested positive at home. Remdesivir x 3 doses. No hypoxia/fever. COVID RECOVERED Assessment & Plan (06/16/2022 11:58 AM COMMERCIAL COLLECTIONS DRIVER): New dx after mild coughing noted and then called in 05/29 to note she tested positive at home. Remdesivir x 3 doses. No hypoxia/fever. COVID RECOVERED Assessment & Plan (06/15/2022 1:22 PM COMMERCIAL COLLECTIONS DRIVER): New dx after mild coughing noted and then called in 05/29 to note she tested positive at home. Remdesivir x 3 doses. No hypoxia/fever. COVID RECOVERED Assessment & Plan (06/14/2022 2:26 PM COMMERCIAL COLLECTIONS DRIVER): New dx after mild coughing noted and then called in 05/29 to note she tested positive at home. Remdesivir x 3 doses. No hypoxia/fever. COVID RECOVERED Assessment & Plan (06/13/2022 4:14 PM COMMERCIAL COLLECTIONS DRIVER): New dx after mild coughing noted and then called in 05/29 to note she tested positive at home. Remdesivir x 3 doses. No hypoxia/fever. COVID RECOVERED Assessment & Plan (06/12/2022 6:19 PM COMMERCIAL COLLECTIONS DRIVER): - new dx after mild coughing noted [...] [facility]. Assessment & Plan (06/11/2022 4:34 PM COMMERCIAL COLLECTIONS DRIVER): - new dx after mild coughing noted [...] SNF. Assessment & Plan (06/10/2022 3:25 PM COMMERCIAL COLLECTIONS DRIVER): - new dx after mild coughing noted [...] SNF. Assessment & Plan (06/10/2022 9:25 AM COMMERCIAL COLLECTIONS DRIVER): - new dx after mild coughing noted [...] SNF. Assessment & Plan (06/08/2022 4:04 PM COMMERCIAL COLLECTIONS DRIVER): - new dx after mild coughing noted [...] [place]. Assessment & Plan (06/07/2022 11:03 AM COMMERCIAL COLLECTIONS DRIVER): - new dx after mild coughing noted [...] [place]. Assessment & Plan (06/06/2022 6:33 PM COMMERCIAL COLLECTIONS DRIVER): - new dx after mild coughing noted and then called in 05/29 to note she tested positive at home - given high risk for worsening and has mild cough gave remdesivir x 3 doses - remains on isolation ( 1) - anticipate 10 days - thus far no hypoxia/fever, still having intermittent cough, no oxygen requirement. Billing statement I have reviewed labs, dopplers and O2 requirements. Clinically resolved infection, Plan continue quarantine for total of 10d per hospital policy. Assessment & Plan (06/05/2022 1:56 PM COMMERCIAL COLLECTIONS DRIVER): - new dx after mild coughing noted and then called in 05/29 to note she tested positive at home - given high risk for worsening and has mild cough gave remdesivir x 3 doses - remains on isolation ( 1) - anticipate 10 days - thus far no hypoxia/fever, still having intermittent cough Assessment & Plan (06/04/2022 11:00 AM COMMERCIAL COLLECTIONS DRIVER): - new dx after mild coughing noted and then called in 05/29 to note she tested positive at home - given high risk for worsening and has mild cough gave remdesivir x 3 doses - remains on isolation (05/30 day 1) - anticipate 10 days - thus far no hypoxia/fever and cough slowly improving Assessment & Plan (06/03/2022 2:56 PM COMMERCIAL COLLECTIONS DRIVER): - new dx after mild coughing noted and then called in 05/29 to note she tested positive at home - given high risk for worsening and has mild cough gave remdesivir x 3 doses - cough seems to be improving today, remains on isolation (05/30 day 1) - monitor for hypoxia/fever Assessment & Plan (06/02/2022 2:25 PM COMMERCIAL COLLECTIONS DRIVER): - new dx after mild coughing noted and then called in 05/29 to note she tested positive at home - given high risk for worsening and has mild cough gave remdesivir x 3 doses - thus far still coughing, had one cough induced emesis event 06/01 PM - monitor for hypoxia/fever Assessment & Plan (06/01/2022 2:17 PM COMMERCIAL COLLECTIONS DRIVER): - new dx after mild coughing noted and then called in 05/29 to note she tested positive at home - given high risk for worsening and has mild cough gave remdesivir x 3 doses which he finishes today; no further complication as of now - monitor for hypoxia, currently on RA Assessment & Plan (05/31/2022 2:56 PM COMMERCIAL COLLECTIONS DRIVER): - new dx after mild coughing noted and then called in 05/29 to note she tested positive at home - given high risk for worsening and has mild cough will complete Remdesivir 200 mg x1 then 100 mg x 2 additional doses (completes 06/01) - monitor for hypoxia, currently on RA Assessment & Plan (05/30/2022 1:59 PM COMMERCIAL COLLECTIONS DRIVER): - new dx after mild coughing noted and then called in last night to note she tested positive at home - given high risk for worsening and has mild cough will start Remdesivir 200 mg x1 then 100 mg x 2 additional doses - monitor for hypoxia, currently on RA Transaminitis 05/30/2022 06/17/2022 Assessment & Plan (06/17/2022 5:35 PM COMMERCIAL COLLECTIONS DRIVER): Mild increase noted when diagnosed with Covid. Statin held. Now resolved. -Continue Crestor 10mg Assessment & Plan (06/16/2022 11:58 AM COMMERCIAL COLLECTIONS DRIVER): Mild increase noted when diagnosed with Covid. Statin held. Now resolved. -Continue Crestor 10mg Assessment & Plan (06/15/2022 1:23 PM COMMERCIAL COLLECTIONS DRIVER): Mild increase noted when diagnosed with Covid. Statin held. Now resolved. -Re-starting Crestor 10mg Assessment & Plan (06/14/2022 2:26 PM COMMERCIAL COLLECTIONS DRIVER): Mild increase noted when diagnosed with Covid. Statin held. Now resolved. -Re-starting Crestor 10mg Assessment & Plan (06/13/2022 4:19 PM COMMERCIAL COLLECTIONS DRIVER): Mild increase noted when diagnosed with Covid. Statin held. Now resolved. -Re-starting Crestor 10mg Assessment & Plan (06/05/2022 2:01 PM COMMERCIAL COLLECTIONS DRIVER): - mild noted on recent labs, ?2/2 covid - still mild uptrend - holding statin as well in meantime, reviewed med list and rest of meds aren't big offenders for LFT issues Assessment & Plan (06/03/2022 2:57 PM COMMERCIAL COLLECTIONS DRIVER): - mild noted on recent labs, ?viral vs. Other >meds - cont to hold statin and monitor > mildly better today, cont to watch Assessment & Plan (06/02/2022 2:26 PM COMMERCIAL COLLECTIONS DRIVER): - mild noted on recent labs, ?viral vs. Other >meds - cont to hold statin and monitor Assessment & Plan (06/01/2022 2:19 PM COMMERCIAL COLLECTIONS DRIVER): - mild noted on recent labs, ?viral vs. Other >meds - still mildly worsening so will hold statin at this point and observe course Assessment & Plan (05/31/2022 2:58 PM COMMERCIAL COLLECTIONS DRIVER): - mild noted on recent labs, ?viral [...] monitoring. Assessment & Plan (06/24/2022 5:02 PM COMMERCIAL COLLECTIONS DRIVER): R femoral v DVT noted on US 05/08. No pitting edema appreciated on RLE. Plan: Continue Apixaban 5 BID. Monitoring serial blood counts and Hb remains stable on serial monitoring. Assessment & Plan (06/23/2022 3:48 PM COMMERCIAL COLLECTIONS DRIVER): R femoral v DVT noted on US 05/08. No pitting edema appreciated on RLE. Plan: - Continue Apixaban 5 BID. Monitoring serial blood counts and Hb remains stable on serial monitoring. Assessment & Plan (06/22/2022 4:07 PM COMMERCIAL COLLECTIONS DRIVER): R femoral v DVT noted on US 05/08. No pitting edema appreciated on RLE. - Continue Apixaban 5 BID. Monitoring serial blood counts and Hb remains stable. Assessment & Plan (06/21/2022 3:22 PM COMMERCIAL COLLECTIONS DRIVER): R femoral v DVT noted on US 05/08. No pitting edema appreciated on RLE. - Continue Apixaban 5 BID. Monitoring serial blood counts and remains stable. Assessment & Plan (06/20/2022 6:08 PM COMMERCIAL COLLECTIONS DRIVER): R femoral v DVT noted on US 05/08. No pitting edema appreciated on RLE. - Continue Apixaban 5 BID. Assessment & Plan (06/16/2022 12:00 PM COMMERCIAL COLLECTIONS DRIVER): R femoral v DVT noted on US 05/08. No pitting edema appreciated on RLE. - Continue Apixaban 5 BID Assessment & Plan (06/15/2022 1:23 PM COMMERCIAL COLLECTIONS DRIVER): R femoral v DVT noted on US 05/08. No pitting edema appreciated on RLE. - Continue Apixaban 5 BID Assessment & Plan (06/14/2022 2:26 PM COMMERCIAL COLLECTIONS DRIVER): R femoral v DVT noted on US 05/08. No pitting edema appreciated on RLE. - Continue Apixaban 5 BID Assessment & Plan (06/13/2022 4:20 PM COMMERCIAL COLLECTIONS DRIVER): R femoral v DVT noted on US 05/08. No pitting edema appreciated on RLE. - Continue Apixaban 5 BID Assessment & Plan (06/12/2022 6:16 PM COMMERCIAL COLLECTIONS DRIVER): R femoral v DVT noted on US 05/08. Treating with apixaban 5 bid No pitting edema appreciated on RLE. F/u Hb 8.5 on anticoagulation. Billing statement Personally reviewed doppler results with RLE DVT and agree with continued plan for apixiban therapy for acute DVT for 3mo duration (triggered). Assessment & Plan (06/11/2022 4:32 PM COMMERCIAL COLLECTIONS DRIVER): R femoral v DVT noted on US 05/08. Treating with apixaban 5 bid No pitting edema appreciated on RLE. F/u Hb 8.5 on anticoagulation. Billing statement Personally reviewed doppler results with RLE DVT and agree with continued plan for apixiban therapy for acute DVT for 3mo duration (triggered). Assessment & Plan (06/10/2022 3:21 PM COMMERCIAL COLLECTIONS DRIVER): R femoral v DVT noted on US 05/08. Treating with apixaban 5 bid No pitting edema appreciated on RLE. F/u Hb 8.1 on anticoagulation. Billing statement I have reviewed doppler results with RLE DVT and agree with continued plan for apixiban therapy for acute DVT for 3mo duration (triggered). Assessment & Plan (06/10/2022 9:23 AM COMMERCIAL COLLECTIONS DRIVER): R femoral v DVT noted on US 05/08. Treating with apixaban 5 bid No pitting edema appreciated on RLE. F/u Hb 8.1 on anticoagulation. Billing statement I have reviewed doppler results with RLE DVT and agree with continuing apixiban therapy for acute DVT for 3mo duration (triggered). Assessment & Plan (06/08/2022 4:01 PM COMMERCIAL COLLECTIONS DRIVER): R femoral v DVT noted on US 05/08 - cont apixaban 5 bid No pitting edema appreciated. F/u Hb 8.1 on anticoagulation. Billing statement I have reviewed doppler results with RLE DVT and agree with continuing apixiban therapy for acute DVT for 3mo duration (triggered). Assessment & Plan (06/07/2022 10:59 AM COMMERCIAL COLLECTIONS DRIVER): - noted on US 05/08 - cont apixaban 5 bid No pitting edema appreciated. Billing statement I have reviewed doppler results with RLE DVT and agree with continuing apixiban therapy for acute DVT for 3mo duration (triggered). Assessment & Plan (06/06/2022 6:28 PM COMMERCIAL COLLECTIONS DRIVER): - noted on US 05/08 - cont apixaban 5 bid No pitting edema appreciated. Billing statement I have reviewed doppler results with RLE DVT and agree with continuing apixiban therapy for acute DVT. Assessment & Plan (06/05/2022 2:01 PM COMMERCIAL COLLECTIONS DRIVER): - noted on US 05/08 - cont apixaban 5 bid Assessment & Plan (06/04/2022 11:09 AM COMMERCIAL COLLECTIONS DRIVER): - noted on US 05/08 - cont apixaban 5 bid Assessment & Plan (06/03/2022 2:57 PM COMMERCIAL COLLECTIONS DRIVER): - noted on US 05/08 - cont apixaban 5 bid Assessment & Plan (06/02/2022 2:26 PM COMMERCIAL COLLECTIONS DRIVER): - noted on 05/08 - cont apixaban 5 bid Assessment & Plan (06/01/2022 2:18 PM COMMERCIAL COLLECTIONS DRIVER): - noted on 05/08 - cont apixaban 5 bid Assessment & Plan (05/31/2022 2:57 PM COMMERCIAL COLLECTIONS DRIVER): - noted on 05/08 - cont apixaban 5 bid Assessment & Plan (05/30/2022 2:04 PM COMMERCIAL COLLECTIONS DRIVER): - noted on US 05/08 - cont apixaban 5 bid Goals of care, counseling/discussion 05/27/2022 03/18/2023 Assessment & Plan (07/14/2022 12:11 PM CDT): Multiple discussions throughout prolonged course, present goal is short term SNF placement w/ eventual goal of returning home. - Consulted palliative care for assistance in penitentiary goals. Much appreciated. Assessment & Plan (06/26/2022 5:14 PM CDT): Poor prognosis for most of hospitalization with severe encephalopathy. Was not following commands with behavioral issues that prevented patient from going SNF as skilled (insurance will not cover SNF if he is unable to skill for rehab, which requires following commands). Awaited family decision on facility for long term care at SNF (vs [facility] with private duty, which family [...] plans. 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 Much appreciated. Assessment & Plan (06/25/2022 10:21 AM CDT): Poor prognosis. Really not following commands and has behavioral issues that are preventing patient from going SNF as skilled (insurance will not cover SNF if he is unable to skill for rehab, which requires following commands). Awaiting family decision on facility for long term care at SNF (vs [facility] with private duty, which family declines). CM following and spoke with in f/u 06/21, 06/22, 06/23. Remains full code. Concern for recurrent aspiration events despite tube feeds and ongoing lack of progress seen in mental status. Anticipate family meeting once MRI results obtained to firm up DC plans. Consulted palliative care for assistance in penitentiary goals. Much appreciated. Assessment & Plan (06/24/2022 5:05 PM COMMERCIAL COLLECTIONS DRIVER): Poor prognosis. Really not following commands and has behavioral issues that are preventing patient from going SNF as skilled (insurance will not cover SNF if he is unable to skill for rehab, which requires following commands). Awaiting family decision on facility for long term care at SNF (vs [facility] with private duty, which family declines). CM following and spoke with in f/u 06/21, 06/22, 06/23. Remains full code. Concern for recurrent aspiration events despite tube feeds and ongoing lack of progress seen in mental status. Anticipate family meeting once MRI results obtained to firm up DC plans. Consulted palliative care for assistance in penitentiary goals. Much appreciated. Assessment & Plan (06/23/2022 3:57 PM COMMERCIAL COLLECTIONS DRIVER): Really not following commands and has behavioral issues that are preventing patient from going SNF as skilled (insurance will not cover SNF if he is unable to skill for rehab, which requires following commands). Awaiting family decision on facility for long term care at SNF (vs [facility] with private duty, which family declines). CM following and spoke with in f/u 38, 06/22. Remains full code. Concern for recurrent aspiration events despite tube feeds and ongoing lack of progress seen in mental status. Anticipate family meeting once MRI results obtained to firm up DC plans. 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 Much appreciated. Assessment & Plan (06/22/2022 4:13 PM COMMERCIAL COLLECTIONS DRIVER): Really not following commands and has behavioral issues that are preventing patient from going SNF (insurance will not cover SNF if he is unable to skill for rehab, which requires following commands). Looking at long term care at SNF as OP (vs [facility] with private duty, family declines). CM following and spoke with in f/u 06/21. Remains full code. Concern for recurrent aspiration events despite tube feeds and ongoing lack of progress seen in mental status. Anticipate family meeting once MRI results obtained to firm up DC plans. 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 Assessment & Plan (06/21/2022 3:26 PM COMMERCIAL COLLECTIONS DRIVER): Really not following commands and has behavioral issues that are preventing patient from going SNF (insurance will not cover SNF if he is unable to skill for rehab, which requires following commands). Looking at long term care at SNF as OP vs [facility] with private duty. CM following and spoke with in f/u 06/21. Remains full code. Anticipate family meeting once MRI results obtained to firm up DC plans. Consider palliative care involvement. Assessment & Plan (06/20/2022 6:11 PM COMMERCIAL COLLECTIONS DRIVER): Really not following commands and has behavioral issues that are preventing patient from going SNF (insurance will not cover SNF if he is unable to skill for rehab, which requires following commands). CM following and spoke with in f/u 38. Remains full code. Assessment & Plan (06/16/2022 11:58 AM COMMERCIAL COLLECTIONS DRIVER): Multiple discussions with from prior teams (Dr. Barksdale and Dr. Marley) > cont supportive treatments with goal of improvement of encephalopathy and d/c to SNF; remains Full Code. - Spouse, Normal, willing to accept MRI after today's discussion. - Anticipate d/c to SNF, however not medically ready yet. Assessment & Plan (06/15/2022 1:22 PM COMMERCIAL COLLECTIONS DRIVER): Multiple discussions with from prior teams (Dr. Barksdale and Dr. Marley) > cont supportive treatments with goal of improvement of encephalopathy and d/c to SNF; remains Full Code. - Spouse, Normal, willing to accept MRI after today's discussion. - Anticipate d/c to SNF, however not medically ready yet. Assessment & Plan (06/14/2022 2:26 PM COMMERCIAL COLLECTIONS DRIVER): Multiple discussions with from prior teams (Dr. Barksdale and Dr. Marley) > cont supportive treatments with goal of improvement of encephalopathy and d/c to SNF; remains Full Code. - Spouse, Normal, willing to accept MRI after today's discussion. - Anticipate d/c to SNF, however not medically ready yet. Assessment & Plan (06/13/2022 4:22 PM COMMERCIAL COLLECTIONS DRIVER): Multiple discussions with from prior teams (Dr. Barksdale and Dr. Marley) > cont supportive treatments with goal of improvement of encephalopathy and d/c to SNF; remains Full Code. - Spouse, Normal, willing to accept MRI after today's discussion. - Anticipate d/c to SNF, however not medically ready yet. Assessment & Plan (06/12/2022 6:19 PM COMMERCIAL COLLECTIONS DRIVER): multiple discussions with , several times over [...] but no beds until late in week ([facility], [facility]). Needs private room for nebulizer use (??), as unable to use MDIs. Additional updated 06/11 with same plan for full code and no MRI. Assessment & Plan (06/11/2022 4:34 PM COMMERCIAL COLLECTIONS DRIVER): multiple discussions with , several times over [...] but no beds until late in week ([facility], [facility]). Needs private room for nebulizer use, as unable to use MDIs. Additional updated 06/11 with same plan for full code and no MRI. Assessment & Plan (06/10/2022 3:25 PM COMMERCIAL COLLECTIONS DRIVER): multiple discussions with , several times over [...] but no beds until late in week ([facility], [facility]). Needs private room for nebulizer use, as unable to use MDIs. Assessment & Plan (06/10/2022 9:26 AM COMMERCIAL COLLECTIONS DRIVER): multiple discussions with , several times over [...] but no beds until late in week ([facility], [facility]). Needs private room for nebulizer use, as unable to use MDIs. Assessment & Plan (06/08/2022 4:05 PM COMMERCIAL COLLECTIONS DRIVER): multiple discussions with , several times over [...] but no beds until late in week ([facility], [facility]). Needs private room for Covid, nebulizer use. Assessment & Plan (06/07/2022 11:04 AM COMMERCIAL COLLECTIONS DRIVER): multiple discussions with , several times over [...] but no beds until late in week ([facility], [facility]) Assessment & Plan (06/06/2022 6:38 PM COMMERCIAL COLLECTIONS DRIVER): multiple discussions with , several times over [...] but no beds until late in week ([facility]) Assessment & Plan (06/05/2022 2:00 PM COMMERCIAL COLLECTIONS DRIVER): - as above again d/w'd multiple times [...] but no beds until late in week ([facility]) Assessment & Plan (06/04/2022 11:09 AM COMMERCIAL COLLECTIONS DRIVER): - as above again d/w'd 05/30 and [...] but no beds until late in week ([facility]) Assessment & Plan (06/03/2022 2:58 PM COMMERCIAL COLLECTIONS DRIVER): - as above again d/w'd 05/30 and [...] but no beds until late in week ([facility]) Assessment & Plan (06/02/2022 2:26 PM COMMERCIAL COLLECTIONS DRIVER): - as above again d/wYamilkad 05/30 and she reiterated similar goals as to Dr. Marley's note from 05/29 > cont supportive treatments with goal of improvement of encephalopathy and d/c to SNF; remains FC; does not want to pursue MRI for now at least Assessment & Plan (06/01/2022 2:18 PM COMMERCIAL COLLECTIONS DRIVER): - as above again d/miod 05/30 and she reiterated similar goals as to Dr. Marley's note from 05/29 > cont supportive treatments with goal of improvement of encephalopathy and d/c to SNF; remains FC; does not want to pursue MRI for now at least Assessment & Plan (05/31/2022 2:57 PM COMMERCIAL COLLECTIONS DRIVER): - as above again d/miod 05/30 and she reiterated similar goals as to Dr. Marley's note from 05/29 > cont supportive treatments with goal of improvement of encephalopathy and d/c to SNF; remains FC; does not want to pursue MRI for now at least Assessment & Plan (05/30/2022 2:03 PM COMMERCIAL COLLECTIONS DRIVER): - as above again d/w'd and she reiterated similar goals as to Dr. Marley's note from 05/29 > cont supportive treatments with goal of improvement of encephalopathy and d/c to SNF; remains FC; does not want to pursue MRI for now at least Assessment & Plan (05/29/2022 3:14 PM COMMERCIAL COLLECTIONS DRIVER): Ongoing discussions with patient's that I am [...] Code Assessment & Plan (05/28/2022 1:54 PM COMMERCIAL COLLECTIONS DRIVER): Discussed with patient's yesterday and today that [...] discussions. Assessment & Plan (05/27/2022 3:55 PM COMMERCIAL COLLECTIONS DRIVER): Discussed with patient's yesterday and today that [...] & son regarding options. Decline home with [facility] & private duty, agreeable to pursing long term SNF at [place]. Domingo Marley requests SNF with therapy. Ongoing CM//SW discussions without decision on facility, ongoing encouragement. Reiterated time may allow brain to heal, discussed benefits of set routine in managing behaviors [employer] terminal. Palliative care consulted 06/22 & appreciated. Discussed above at length with son 06/24 at bedside, Ayaka daily when present (most days). Marked improvement with resolution of hypercalcemia. Able to tolerate up to chair daily. Plan family meeting once MRI results obtained. Plan PT/OT reevaluation and SNF at [place]. List provided by CM. Await family decision. [...] help). However recurrent hypernatremia with TF held 38 and increased vocalizations. Managing mobility limited by [...] given his CKD). Trial off the oxycodone 3-06/21 with increased agitation, vocalizations. Improved with resuming [...] HHC & private duty, agreeable to pursing long term SNF at [place]. Ayaka requests SNF with therapy. Ongoing CM//SW discussions without decision on facility, ongoing encouragement. Reiterated time may allow brain to heal, discussed benefits of set routine in managing behaviors [employer] container terminal. Palliative care consulted 06/22 & appreciated. Discussed above at length with son 06/24 at bedside. Plan family meeting once MRI results obtained. Plan long term SNF at [place]. List provided by CM. Await family decision. Assessment & Plan (06/24/2022 5:02 PM COMMERCIAL COLLECTIONS DRIVER): Likely multifactorial. Initially thought to be acute [...] HHC & private duty, agreeable to pursing long term SNF at [place]. Ayaka requests SNF with therapy. Ongoing CM//SW discussions without decision on facility, ongoing encouragement. Reiterated time may allow brain to heal, discussed benefits of set routine in managing behaviors penitentiary. Palliative care consulted 06/22 & appreciated. Discussed above at length with son 06/24 at bedside. Plan family meeting once MRI results obtained. Plan SNF at [place]. List provided by CM. Await family decision. Assessment & Plan (06/23/2022 3:47 PM COMMERCIAL COLLECTIONS DRIVER): Likely multifactorial. Initially thought to be acute [...] home with HH & private duty vs long term SNF at [place]. Ayaka requests SNF with therapy. Ongoing CM//SW discussions without decision. Palliative care consulted 06/22. Anticipate son to arrive 06/24. Plan family meeting once MRI results obtained. Assessment & Plan (06/22/2022 4:09 PM COMMERCIAL COLLECTIONS DRIVER): Likely multifactorial. Thought to be acute delirium [...] discussions with regarding options of home with HHC & private duty vs long term SNF at [place]. Ayaka requests SNF with therapy. Ongoing CM//SW discussions without decision. Palliative care consulted 06/22. Plan family meeting once MRI results obtained. Assessment & Plan (06/21/2022 3:22 PM COMMERCIAL COLLECTIONS DRIVER): Likely multifactorial. Thought to be acute delirium [...] rehab due to encephalopathy, plan home with [facility] vs long term SNF at [place]. Ongoing CM//SW discussions for dispo planning. Will attempt family meeting once MRI results obtained. Assessment & Plan (06/20/2022 6:08 PM COMMERCIAL COLLECTIONS DRIVER): Likely multifactorial. Thought to be acute delirium [...] restraints). Assessment & Plan (06/16/2022 11:57 AM COMMERCIAL COLLECTIONS DRIVER): Likely multifactorial. Thought to be acute delirium [...] oxycodone Assessment & Plan (06/15/2022 1:22 PM COMMERCIAL COLLECTIONS DRIVER): Likely multifactorial. Thought to be acute delirium [...] precautions. Assessment & Plan (06/14/2022 2:26 PM COMMERCIAL COLLECTIONS DRIVER): Likely multifactorial. Thought to be acute delirium [...] PEG tube for feeding, seen by speech 2 NPO. Advanced to dysphagia 1 diet with nectar thick liquids, poor tolerance and resumed NPO status. -Continue Zoloft to 50 mg -Discontinue Seroquel -Scheduling tylenol q6h for its benefit with acute agitation. -Not medically ready to discharge. -Continue aspiration precautions. Assessment & Plan (06/13/2022 4:10 PM COMMERCIAL COLLECTIONS DRIVER): Likely multifactorial. Thought to be acute delirium [...] PEG tube for feeding, seen by speech 2 NPO. Advanced to dysphagia 1 diet with nectar thick liquids, poor tolerance and resumed NPO status. -Continue Zoloft to 50 mg -Discontinue Seroquel -Scheduling tylenol q6h for its benefit with acute agitation. -Not medically ready to discharge. -Continue aspiration precautions. Assessment & Plan (06/12/2022 6:16 PM COMMERCIAL COLLECTIONS DRIVER): Likely multifactorial ISO initial delirium and toxic-metabolic [...] 06/12 Assessment & Plan (06/11/2022 4:30 PM COMMERCIAL COLLECTIONS DRIVER): Likely multifactorial ISO initial delirium and toxic-metabolic [...] available. Assessment & Plan (06/10/2022 3:21 PM COMMERCIAL COLLECTIONS DRIVER): 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 [...] covid diagnosis, but unlikely given predating symptoms. [facility] 06/08 advanced to regular diet with nectar [...] available. Assessment & Plan (06/10/2022 9:22 AM COMMERCIAL COLLECTIONS DRIVER): 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 [...] ADAT. Assessment & Plan (06/08/2022 4:00 PM COMMERCIAL COLLECTIONS DRIVER): 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 [...] goals/adequacy. Assessment & Plan (06/07/2022 10:58 AM COMMERCIAL COLLECTIONS DRIVER): 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 [...] seroquel) Assessment & Plan (06/06/2022 6:37 PM COMMERCIAL COLLECTIONS DRIVER): 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 [...] status. Assessment & Plan (06/05/2022 1:56 PM COMMERCIAL COLLECTIONS DRIVER): - Likely multifactorial ISO delirium and toxic-metabolic [...] 05/28) Assessment & Plan (06/04/2022 10:59 AM COMMERCIAL COLLECTIONS DRIVER): - Likely multifactorial ISO delirium and toxic-metabolic [...] 05/28) Assessment & Plan (06/03/2022 2:55 PM COMMERCIAL COLLECTIONS DRIVER): - Likely multifactorial ISO delirium and toxic-metabolic [...] 05/28) Assessment & Plan (06/02/2022 2:24 PM COMMERCIAL COLLECTIONS DRIVER): - Likely multifactorial ISO delirium and toxic-metabolic [...] 05/28) Assessment & Plan (06/01/2022 2:17 PM COMMERCIAL COLLECTIONS DRIVER): - Likely multifactorial ISO delirium and toxic-metabolic [...] 05/28) Assessment & Plan (05/31/2022 2:55 PM COMMERCIAL COLLECTIONS DRIVER): - Likely multifactorial ISO delirium and toxic-metabolic [...] 05/28) Assessment & Plan (05/30/2022 1:58 PM COMMERCIAL COLLECTIONS DRIVER): - Likely multifactorial ISO delirium and toxic-metabolic [...] 05/28) Assessment & Plan (05/29/2022 3:12 PM COMMERCIAL COLLECTIONS DRIVER): 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 [...] 05/28) Assessment & Plan (05/28/2022 1:53 PM COMMERCIAL COLLECTIONS DRIVER): 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 [...] anesthesia, and brain MRI seems unlikely to casino change attendant. -Recent ammonia, tsh, lactate, HIV, ABG are [...] [email or web address] Assessment & Plan (05/27/2022 3:51 PM COMMERCIAL COLLECTIONS DRIVER): 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 [...] anesthesia, and brain MRI seems unlikely to casino change attendant. -Recent ammonia, tsh, lactate, HIV, ABG are negative or normal -continue management of hypernatremia (now resolved) and hypercalcemia -PEG tube for feeding -appreciate neurology recommendations -May be developing new baseline, or may be very slow to recover from this prolonged delirium/hospitalization; seemed slightly improved this am Assessment & Plan (05/26/2022 1:25 PM COMMERCIAL COLLECTIONS DRIVER): 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 [...] (04/03/2022): Added automatically from request for surgery [id number] Assessment & Plan (06/17/2022 5:35 PM COMMERCIAL COLLECTIONS DRIVER): In setting of shock, PNA, pneumothorax, and AMS in post-op setting. Tracheostomy placed in ICU and decannulated 05/13, did well on 2L, weaned to RA. Remains stable. Small anterior cervical os with tiny air leak, occlusion dressing placed. Pt unable to stent when speaking due to encephalopathy. Assessment & Plan (06/16/2022 11:56 AM COMMERCIAL COLLECTIONS DRIVER): In setting of shock, PNA, pneumothorax, and AMS in post-op setting. Tracheostomy placed in ICU and decannulated 05/13, did well on 2L, weaned to RA. Remains stable. Small anterior cervical os with tiny air leak, occlusion dressing placed. Pt unable to stent when speaking due to encephalopathy. Assessment & Plan (06/15/2022 1:20 PM COMMERCIAL COLLECTIONS DRIVER): In setting of shock, PNA, pneumothorax, and AMS in post-op setting. Tracheostomy placed in ICU and decannulated 05/13, did well on 2L, weaned to RA. Remains stable. Small anterior cervical os with tiny air leak, occlusion dressing placed. Pt unable to stent when speaking due to encephalopathy. Assessment & Plan (06/14/2022 2:20 PM COMMERCIAL COLLECTIONS DRIVER): In setting of shock, PNA, pneumothorax, and AMS in post-op setting. Tracheostomy placed in ICU and decannulated 05/13, did well on 2L, weaned to RA. Remains stable. Small anterior cervical os with tiny air leak, occlusion dressing placed. Pt unable to stent when speaking due to encephalopathy. Assessment & Plan (06/13/2022 3:58 PM COMMERCIAL COLLECTIONS DRIVER): In setting of shock, PNA, pneumothorax, and AMS in post-op setting. Tracheostomy placed in ICU and decannulated 05/13, did well on 2L, weaned to RA. Remains stable. Small anterior cervical os with tiny air leak, occlusion dressing placed. Pt unable to stent when speaking due to encephalopathy. Assessment & Plan (06/12/2022 6:20 PM COMMERCIAL COLLECTIONS DRIVER): In setting of shock, PNA, pneumothorax, and AMS in post-op setting. Tracheostomy placed in ICU and decannulated 05/13, now doing well on 2L, weaned to RA. Remains stable. Small anterior cervical os with tiny air leak, occlusion dressing placed. Pt unable to stent when speaking due to encephalopathy. Assessment & Plan (06/10/2022 3:30 PM COMMERCIAL COLLECTIONS DRIVER): In setting of shock, PNA, pneumothorax, and AMS in post-op setting. Tracheostomy placed in ICU and decannulated 05/13, now doing well on 2L, weaned to RA. Remains stable. Small anterior cervical os with tiny air leak, occlusion dressing placed. Pt unable to stent when speaking due to encephalopathy. Assessment & Plan (06/10/2022 9:27 AM COMMERCIAL COLLECTIONS DRIVER): In setting of shock, PNA, pneumothorax, and AMS in post-op setting. Tracheostomy placed in ICU and decannulated 05/13, now doing well on 2L, wean to RA Assessment & Plan (06/08/2022 4:11 PM COMMERCIAL COLLECTIONS DRIVER): In setting of shock, PNA, pneumothorax, and AMS in post-op setting. Tracheostomy placed in ICU and decannulated 05/13, now doing well on 2L, wean to RA Assessment & Plan (05/30/2022 2:04 PM COMMERCIAL COLLECTIONS DRIVER): - In setting of shock, PNA, pneumothorax, and AMS in post-op setting. Tracheostomy placed in ICU and decannulated 05/13, now doing well on RA Assessment & Plan (05/29/2022 3:13 PM COMMERCIAL COLLECTIONS DRIVER): - In setting of shock, PNA, pneumothorax, and AMS in post-op setting. Tracheostomy placed in ICU and decannulated 05/13, now doing well on RA Assessment & Plan (05/28/2022 1:53 PM COMMERCIAL COLLECTIONS DRIVER): - In setting of shock, PNA, pneumothorax, and AMS in post-op setting. Tracheostomy placed in ICU and decannulated 05/13, now doing well on RA Assessment & Plan (05/27/2022 3:53 PM COMMERCIAL COLLECTIONS DRIVER): - In setting of shock, PNA, pneumothorax, and AMS in post-op setting. Tracheostomy placed in ICU and decannulated 05/13, now doing well on RA Assessment & Plan (05/25/2022 3:17 PM COMMERCIAL COLLECTIONS DRIVER): - In setting of shock, PNA, pneumothorax, and AMS in post-op setting. Tracheostomy placed in ICU and decannulated 05/13, now doing well on RA Assessment & Plan (04/05/2022 12:16 PM COMMERCIAL COLLECTIONS DRIVER): Ravinder Chapman is a 76 y.o. male with a PMHx of cervical myelopathy, COPD/AMAYA (CPAP at home), and obesity initially admitted to the [facility] [place] floor s/p C3-7 ACDF and C3-7 PSF then transferred to the ICU on 03/20 with ARDS secondary to aspiration [...] saturation. Assessment & Plan (04/05/2021 5:48 PM COMMERCIAL COLLECTIONS DRIVER): Patient reports no significant vertigo, but loses [...] 07/19/2020 Assessment & Plan (05/06/2020 12:58 PM COMMERCIAL COLLECTIONS DRIVER): D- dimer is 815. Slightly elevated as age adjusted normal value for this patient is 730. Possibly secondary to current inflammatory process given acute colitis. Do not suspect PE or DVT. Colitis 05/05/2020 07/19/2020 Assessment & Plan (05/06/2020 12:54 PM COMMERCIAL COLLECTIONS DRIVER): Presented with abdominalo pain X 2 days. [...] 09/22/2019 Assessment & Plan (03/04/2019 2:55 PM COMMERCIAL COLLECTIONS DRIVER): Family hx of breast ca. Will order [...] weight-bearing; Assessment & Plan (04/29/2021 11:06 AM COMMERCIAL COLLECTIONS DRIVER): Stable, patient has been working on weight [...] 01/14/2018 Assessment & Plan (04/10/2017 9:35 AM COMMERCIAL COLLECTIONS DRIVER): Will treat with omnicef. Overall he's improved. [...] (07/15/2022 10:46 AM CDT): Severe GIN/ATN requiring MANAGER PROGRAMMING in setting of critical illness. Making reasonable amount of urine, creatinine stabilized off dialysis. Tunneled line removed 05/25. Cr appears to have improved to 1.2-1.3. GIN resolved. 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 -Continue to avoid nephrotoxins - encourage PO intake Assessment & Plan (06/26/2022 5:10 PM CDT): Severe GIN/ATN requiring MANAGER PROGRAMMING in setting of critical illness. Making reasonable amount of urine, creatinine stabilized off dialysis. Tunneled line removed 05/25. Cr appears to be plateaued <2. GIN resolved. 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 -Continue to avoid nephrotoxins -Cont intermittent IVF as needed for hypernatremia, as TF FW flushes doesn't seem to help as much, but further advanced. Home Weatherizing Worker reconsulted to address volume of flushes, water needs. -Volume status on exam appears good. Tx hypercalcemia as elsewhere, iCr 1.90 with holding of TF for recurrent vomiting. Assessment & Plan (06/25/2022 10:19 AM CDT): Severe GIN/ATN requiring MANAGER PROGRAMMING in setting of critical illness. Making reasonable amount of urine, creatinine stabilized off dialysis. Tunneled line removed 05/25. Cr appears to be plateaued <2. GIN resolved. 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 -Continue to avoid nephrotoxins -Cont intermittent IVF as needed for hypernatremia, as TF FW flushes doesn't seem to help as much, but further advanced. Home Weatherizing Worker reconsulted to address volume of flushes, water needs. -Volume status on exam appears good. Tx hypercalcemia as elsewhere, improvign trend. Assessment & Plan (06/24/2022 5:03 PM COMMERCIAL COLLECTIONS DRIVER): Severe GIN/ATN requiring MANAGER PROGRAMMING in setting of critical illness. Making reasonable amount of urine, creatinine stabilized off dialysis. Tunneled line removed 05/25. Cr appears to be plateaued <2. GIN resolved. 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 -Continue to avoid nephrotoxins -Cont intermittent IVF as needed for hypernatremia, as TF FW flushes doesn't seem to help as much. Home Weatherizing Worker reconsulted to address volume of flushes, water needs. -Volume status on exam appears good. Tx hypercalcemia as elsewhere. Assessment & Plan (06/23/2022 3:48 PM COMMERCIAL COLLECTIONS DRIVER): Severe GIN/ATN requiring MANAGER PROGRAMMING in setting of critical illness. Making reasonable [...] elsewhere. Assessment & Plan (06/22/2022 4:08 PM COMMERCIAL COLLECTIONS DRIVER): Severe GIN/ATN requiring MANAGER PROGRAMMING in setting of critical illness. Making reasonable amount of urine, creatinine stabilized off dialysis. Tunneled line removed 2. Cr appears to be plateaued <2. GIN resolved. 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 -Continue to avoid nephrotoxins -Cont intermittent IVF as needed for hypernatremia, as TF FW flushes doesn't seem to help as much. Tx hypercalcemia as elsewhere. Assessment & Plan (06/21/2022 3:23 PM COMMERCIAL COLLECTIONS DRIVER): Severe GIN/ATN requiring MANAGER PROGRAMMING in setting of critical illness. Making reasonable amount of urine, creatinine stabilizing off dialysis. Tunneled line removed 2. Cr appears to be plateaued <2. GIN resolved. 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 -Continue to avoid nephrotoxins -Cont intermittent D5w IV as needed for hypernatremia, as TF FW flushes doesn't seem to help as much. Assessment & Plan (06/20/2022 6:09 PM COMMERCIAL COLLECTIONS DRIVER): Severe GIN/ATN requiring MANAGER PROGRAMMING in setting of critical illness. Making reasonable amount of urine, creatinine stabilizing off dialysis. Tunneled line removed 2. Cr appears to be plateaued <2. GIN resolved. 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 -Continue to avoid nephrotoxins -Cont NS IV as needed for hypernatremia, -TF FW flushes doesn't seem to help as much. Assessment & Plan (06/16/2022 11:56 AM COMMERCIAL COLLECTIONS DRIVER): Severe GIN/ATN requiring MANAGER PROGRAMMING in setting of critical illness. Making reasonable amount of urine, creatinine stabilizing off dialysis. Tunneled line removed 2/9. Cr appears to be plateaued <2. GIN resolved. -Continue to avoid nephrotoxins Assessment & Plan (06/15/2022 1:19 PM COMMERCIAL COLLECTIONS DRIVER): Severe GIN/ATN requiring MANAGER PROGRAMMING in setting of critical illness. Making reasonable amount of urine, creatinine stabilizing off dialysis. Tunneled line removed 2/9. Cr appears to be plateaued <2. GIN resolved. -Continue to avoid nephrotoxins Assessment & Plan (06/14/2022 2:19 PM COMMERCIAL COLLECTIONS DRIVER): Severe GIN/ATN requiring MANAGER PROGRAMMING in setting of critical illness. Making reasonable amount of urine, creatinine stabilizing off dialysis. Tunneled line removed 2/9. Cr appears to be plateaued <2. GIN resolved. -Continue to avoid nephrotoxins Assessment & Plan (06/13/2022 3:57 PM COMMERCIAL COLLECTIONS DRIVER): Severe GIN/ATN requiring MANAGER PROGRAMMING in setting of critical illness. Making reasonable amount of urine, creatinine stabilizing off dialysis. Tunneled line removed 2. Cr appears to be plateaued <2. GIN resolved. -Continue to avoid nephrotoxins Assessment & Plan (06/12/2022 6:17 PM COMMERCIAL COLLECTIONS DRIVER): Severe GIN/ATN requiring MANAGER PROGRAMMING in setting of critical illness. Making reasonable [...] PCP Assessment & Plan (06/11/2022 4:33 PM COMMERCIAL COLLECTIONS DRIVER): Severe GIN/ATN requiring MANAGER PROGRAMMING in setting of critical illness. Making reasonable [...] PCP Assessment & Plan (06/10/2022 3:23 PM COMMERCIAL COLLECTIONS DRIVER): Severe GIN/ATN requiring MANAGER PROGRAMMING in setting of critical illness. Making reasonable [...] exams. Assessment & Plan (06/10/2022 9:23 AM COMMERCIAL COLLECTIONS DRIVER): Severe GIN/ATN requiring MANAGER PROGRAMMING in setting of critical illness. Making reasonable [...] exams. Assessment & Plan (06/08/2022 4:02 PM COMMERCIAL COLLECTIONS DRIVER): Severe GIN/ATN requiring MANAGER PROGRAMMING in setting of critical illness. Making reasonable [...] exams. Assessment & Plan (06/07/2022 11:00 AM COMMERCIAL COLLECTIONS DRIVER): Severe GIN/ATN requiring MANAGER PROGRAMMING in setting of critical illness. Making reasonable [...] exams. Assessment & Plan (06/06/2022 6:29 PM COMMERCIAL COLLECTIONS DRIVER): - Severe GIN/ATN requiring MANAGER PROGRAMMING in setting of critical illness. Making reasonable [...] exams. Assessment & Plan (06/05/2022 2:00 PM COMMERCIAL COLLECTIONS DRIVER): - Severe GIN/ATN requiring MANAGER PROGRAMMING in setting of critical illness. Making reasonable amount of urine, creatinine stabilizing off dialysis - tunneled line removed 2/9 - cont to avoid nephrotoxins - Cr appears to be leveling off around 2 thus far Assessment & Plan (06/04/2022 11:03 AM COMMERCIAL COLLECTIONS DRIVER): - Severe GIN/ATN requiring MANAGER PROGRAMMING in setting of critical illness. Making reasonable amount of urine, creatinine stabilizing off dialysis - tunneled line removed 2/9 - cont to avoid nephrotoxins Assessment & Plan (06/03/2022 2:56 PM COMMERCIAL COLLECTIONS DRIVER): - Severe GIN/ATN requiring MANAGER PROGRAMMING in setting of critical illness. Making reasonable amount of urine, creatinine stabilizing off dialysis - tunneled line removed 2/9 - cont to avoid nephrotoxins Assessment & Plan (06/02/2022 2:25 PM COMMERCIAL COLLECTIONS DRIVER): - Severe GIN/ATN requiring MANAGER PROGRAMMING in setting of critical illness. Making reasonable amount of urine, creatinine stabilizing off dialysis - tunneled line removed 2/9 - cont to avoid nephrotoxins Assessment & Plan (06/01/2022 2:18 PM COMMERCIAL COLLECTIONS DRIVER): - Severe GIN/ATN requiring MANAGER PROGRAMMING in setting of critical illness. Making reasonable amount of urine, creatinine stabilizing off dialysis - tunneled line removed 2/9 - cont to avoid nephrotoxins Assessment & Plan (05/31/2022 2:57 PM COMMERCIAL COLLECTIONS DRIVER): - Severe GIN/ATN requiring MANAGER PROGRAMMING in setting of critical illness. Making reasonable amount of urine, creatinine stabilizing off dialysis - tunneled line removed 2/9 - cont to avoid nephrotoxins Assessment & Plan (05/30/2022 2:02 PM COMMERCIAL COLLECTIONS DRIVER): - Severe GIN/ATN requiring MANAGER PROGRAMMING in setting of critical illness. Making reasonable amount of urine, creatinine stabilizing off dialysis - tunneled line removed 2/9 - cont to avoid nephrotoxins Assessment & Plan (05/29/2022 3:13 PM COMMERCIAL COLLECTIONS DRIVER): - Severe GIN/ATN requiring MANAGER PROGRAMMING in setting of critical illness. Making good urine, creatinine stable off dialysis - tunneled line removed 2/9 - cont to avoid nephrotoxins Assessment & Plan (05/28/2022 1:53 PM COMMERCIAL COLLECTIONS DRIVER): - Severe GIN/ATN requiring MANAGER PROGRAMMING in setting of critical illness. Making good urine, creatinine stable off dialysis - tunneled line removed 2/9 - cont to avoid nephrotoxins Assessment & Plan (05/27/2022 3:52 PM COMMERCIAL COLLECTIONS DRIVER): - Severe GIN/ATN requiring MANAGER PROGRAMMING in setting of critical illness. Making good urine, creatinine slowly improving off dialysis - tunneled line removed 2/9 - cont to avoid nephrotoxins Assessment & Plan (05/26/2022 1:17 PM COMMERCIAL COLLECTIONS DRIVER): - Severe GIN/ATN requiring MANAGER PROGRAMMING in setting of critical illness. Making good urine, creatinine has stabilized off dialysis - tunneled line removed 2/9 - cont to avoid nephrotoxins Encounters Date Type Department Care Team Description 09/25/2024 Telephone [facility] [address] [address] Janet Ricks MA Unsuccessful Phone Call 1 ([employer] med adh) 09/10/2024 8:45 AM CDT Office Visit 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); LBBB (left bundle branch block); Chronic diastolic congestive heart failure (HCC); Essential hypertension; Stage 3b chronic kidney disease (HCC); AMAYA on CPAP; History of DVT (deep vein thrombosis); Lipid screening; History of tobacco abuse 07/09/2024 9:55 AM CDT Lab [facility] [address] [place] [address] from Last 3 Months Immunizations Immunization Administration [...] calcification 03/27/2019 Smoking Quit in 1996 Cataract 2018 Bilateral Pneumonia 2020 Colon polyp Depression 1985 [...] materials from doctor or pharmacy Sometimes 10/09/2022 [facility] Utilities Answer Date Recorded In the past [...] often do you attend chur ch or confucianism services? More than 4 times per year 06/20/2023 Do you belong to any clubs o r organizations such as restorationist groups, unions, fraternal or athletic groups, or [...] place to sleep or slept in a intermediate (including now)? No 06/20/2023 Personal Safety Answer Date Recorded Have you ever been in or are you currently in a harmful physical or emotional relationship or is someone making you feel afraid or unsafe? Denies 06/16/2023 Sex and Gender Information Value Date Recorded Sex Assigned at Not on file Legal Sex Male 1:30 PM COMMERCIAL COLLECTIONS DRIVER Gender Identity Male 02/21/2021 12:31 PM COMMERCIAL COLLECTIONS DRIVER Sexual Orientation Straight 12/22/2020 11 :36 AM [...] 09/10/2024 8:23 AM CDT Plan of Treatment Health Maintenance Due Date Last Done Comments Hepatitis B Screening 1963 Zoster Vaccine (1 of 2) 1996 Covid-19 Vaccine (2023- 5 season) 2023 12/26/2021, 12/26/2021, 08/18/2021, Additional [...] history exists Medical Devices Implanted Type Area Raw Products Director Device Identifier Shelf Expiration Date Model / Serial / Lot [employer] Device Vascular Closure Femoral Artery Bioabsorbable Dual Method Vascade 6-7fr Collagen [id number] - [id number] Implanted:Qty: 1 on 06/18/2023 by Maria A Seymour MD at [facility] Collagen Right: Common Femoral Artery [employer] 02/07/2025 [id number] / / [id number] [employer] Allograft Bone Putty 2.5cc 700-025 - [id number] Implanted:Qty: 1 on 03/17/2022 by Boogie Casas MD at [facility] Cervical [employer] [id number] 09/13/2024 700-025 / / [id number] [employer] Screw Trelloss-C Sa 3.5x12mm [id number] - [id number] Implanted:Qty: 1 on 03/17/2022 by Boogie Casas MD at [facility] [employer] [id number] 01/04/2027 [id number] / / [id number] [employer] Spacer Trelloss-C Sa [id number] 6deg [id number] - [id number] Implanted:Qty: 1 on 03/17/2022 by Boogie Casas MD at [facility] Cerv[facility] [employer] [id number] 02/10/2025 [id number] / / [id number] [employer] Spacer Trelloss-C Sa [id number] 6deg [id number] - [id number] Implanted:Qty: 1 on 03/17/2022 by Boogie Casas MD at [facility] Cerv[facility] [employer] [id number] 01/28/2025 [id number] / / [id number] [employer] Inqu Paste Mix Plus Numerical Tool Programmer 10cc Bone Graft Hyaluronic Acid Poly [id number] - [id number] Implanted:Qty: 1 on 03/17/2022 by Boogie Casas MD at [facility] [employer] 08/31/2022 [id number] / / [id number] [employer] Virage 3.5mm 16mm Polyaxial Spine Screw Bone Nonsterile 07.65930.009 - [id number] Implanted:Qty: 7 on 03/17/2022 by Boogie Casas MD at [facility] [employer] [id number]. [id number] / / [employer] Virage 3.5mm 14mm Polyaxial Spine Screw Bone Nonsterile 07.78609.007 - [id number] Implanted:Qty: 2 on 03/17/2022 by Boogie Casas MD at [facility] [employer] [id number]. [id number] / / [employer] Virage 4mm 20mm Self Tap Polyaxial Spine Screw Bone Titanium Gold [id number] - [id number] Implanted:Qty: 1 on 03/17/2022 by Boogie Casas MD at [facility] [employer] [id number]. [id number] / / Prasanna Straight Cocr 3.5mm X 400mm - [id number] Implanted:Qty: 1 on 03/17/2022 by Boogie Casas MD at [facility] [employer] [id number]. [id number] / / [employer] Virage Closure Top Lid Sterilization Nonsterile Disposable Screw 38730.001 - [id number] Implanted:Qty: 10 on 03/17/2022 by Boogie Casas MD at [facility] [id number] .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 73 m2 Comment: [...] was last reviewed 2021. Testing performed by: [address] [address] Blood 07/09/2024 10:0 4 AM CDT 07/09/2024 1:21 PM CDT Sanford Mcduffie MD LAB BLOOD ORDERABLES Final R esult [facility] (MIAMI) 1 [facility] Department [place] [address] * Protein / creatinine ratio, urine, random (07/09/2024 10:04 AM CDT) Protein, ur, quant 16.4 mg/dL Comment: Interpretive Data No reference range established. Current interpretive data was last revised 2018. Testing performed by: [address] [address] Creatinine Ur 182.8 mg/dL [facility] (PAM) Comment: Interpretive Data No reference range established. Current interpretive data was last revised 2018. Testing performed by: [address] [address] Protein/creatinin e ratio 89.7 0.0 - 180.0 mg/g CR [facility] (PAM) Comment:Testing performed by : [address] [address] Urine 07/09/2024 10:0 4 AM CDT 07/09/2024 10:05 AM CDT Sanford Mcduffie MD LAB URINE ORDERABLES Final R esult [facility] FR[facility] (MIAMI) 1 [facility] [place] [address] * Vitamin D 25 hydroxy (07/09/2024 10:04 AM CDT) Pathologist [facility] Vitamin D 25-OH 72 30 - 80 ng/mL Comment:Testing performed by : [facility], [address] [place] [address], [address] Blood 07/09/2024 10:0 4 AM CDT 07/09/2024 10:04 AM CDT Sanford Mcduffie MD LAB BLOOD ORDERABLES Final R esult Performing Organization Address City/[facility]/ZIP Co de Phone Number SHONA FRY (MIAMI) 1 [facility] [place] [address] * (ABNORMAL) CBC without differential (07/09/2024 10:04 AM CDT) [facility] WBC 7.6 3.8 - 9.9 K/cumm Comment:Testing performed by : [facility], [address] [place] [address], [address] Hgb 12.3(L) 13.0 - 17.5 g/dL [facility] (PAM) Comment:Testing performed by : [facility], [address] [place] [address], [address] Hct 40.4 38.9 - 50.3 % [facility] (PAM) Comment:Testing performed by : [facility], [address] [place] [address], [address] Plt 173 150 - 400 K/cumm [facility] (PAM) Comment:Testing performed by : [address], [address] MPV 11.8 9.1 - 12.3 fL [facility] (PAM) Comment:Testing performed by : [facility], [address] [place] [address], [address] RBC 4.62 4.30 - 5.80 M/cumm [facility] (PAM) Comment:Testing performed by : [facility], [address] [place] [address], [address] MCV 87.4 81.3 - 96.4 fL [facility] (PAM) Comment:Testing performed by : [address], [address] MCH 26.6(L) 27.1 - 33.3 pg [facility] (PAM) Comment:Testing performed by : [facility], [address] [place] [address], [address] MCHC 30.4(L) 32.3 - 35.7 g/dL [facility] (PAM) Comment:Testing performed by : [address], [address] RDW CV 15.7(H) 11.1 - 14.9 % [facility] (PAM) Comment:Testing performed by : [address], [address] RDW SD 49.9(H) 35.7 - 48.1 fL [facility] (PAM) Comment:Testing performed by : [address], [address] NRBC abs 0.00 0.00 - 0.01 K/cumm [facility] (PAM) Comment:Testing performed by : [address], [address] Blood 07/09/2024 10:0 4 AM CDT 07/09/2024 10:04 AM CDT us Sanford Mcduffie MD LAB BLOOD ORDERABLES Final R esult [facility] (MI[place]I) 1 [facility] Department [place] [address] * Uric acid (07/09/2024 10:04 AM CDT) Uric acid 5.0 3.0 - 8.0 mg/dL Comment:Testing performed by : [address] [place]., [address] Blood 07/09/2024 10:0 4 AM CDT 07/09/2024 10:05 AM CDT Sanford Mcduffie MD LAB BLOOD ORDERABLES Final R esult Performing Organization Address City/[facility] Co de Phone Number [facility] FRY (PAM) 1 [place] [address] * PTH (07/09/2024 10:04 AM CDT) PTH 65 15 - 65 pg/mL Comment:Testing performed by : [facility], [address] [place] [address], [address] Blood 07/09/2024 10:0 4 AM CDT 07/09/2024 10:05 AM CDT Sanford Mcduffie MD LAB BLOOD ORDERABLES Final R esult Performing Organization Address City/[facility] de Phone Number [facility] FRY (PAM) 1 [place] [address] * (ABNORMAL) Renal function panel (07/09/2024 10:04 AM CDT) Sodium 145 135 - 145 mmol/L Comment:Testing performed by : [facility], [address] [place] [address], [address] Potassium, pl 4.2 3.3 - 4.9 mmol/L [facility] (PAM) Comment:Testing performed by : [facility], [address] [place] [address], [address] Chloride 111(H) 97 - 110 mmol/L [facility] (PAM) Comment:Testing performed by : [address], [address] CO2 26 22 - 32 mmol/L [facility] (PAM) Comment:Testing performed by : [address], [address] Anion gap 8 2 - 15 mmol/L [facility] (PAM) Comment:Testing performed by : [address] [place]., [address] BUN 37(H) 6 - 25 mg/dL [facility] (PAM) Comment:Testing performed by : [facility], [address] [place] [address]., [address] Creatinine 1.76(H) 0.80 - 1.30 mg/dL [facility] (PAM) Comment:Testing performed by : [facility], [address] [place] [address], [address] Glucose 98 70 - 199 mg/dL CERNER [...] was last revised 2022. Testing performed by: [facility], [address] [place] [address], [address] Calcium 10.0 8.5 - 10.3 mg/dL [facility] (PAM) Comment:Testing performed by : [address] [address] Phosphorus, pl 3.7 2.3 - 4.5 mg/dL [facility] (PAM) Comment:Testing performed by : [address], [address] Albumin 3.9 3.5 - 5.0 g/dL [facility] (PAM) Comment:Testing performed by : [address], [address] Blood 07/09/2024 10:0 4 AM CDT 07/09/2024 10:05 AM CDT us Sanford Mcduffie MD LAB BLOOD ORDERABLES Final R esult [facility] (MIAMI) 1 [facility] Department [place] [address] * US Abdominal Aortic Aneurysm Screening (02/12/2024 [...] by: Lani Simmons M.D. Reymundo Bloom MD [facility] US PROCEDURES Final Result * COLONOSCOPY (03/28/2021 7:23 AM COMMERCIAL COLLECTIONS DRIVER) Anatomical Region Laterality Modality Other Narrative Procedure Note Roe Dior MD - 03/28/2021 7:23 AM CST [facility] Patient Name: Ravinder Chapman Procedure Date: 03/28/2021 7:23 AM Date of : 1945 Admit Type: Outpatient Age: 75 Gender: Male Attending MD: Roe Dior M.D. Room: [facility] 2 Note Status: Finalized [...] scope was passed under direct vision. TheColonoscope [id number] was introduced through the anus and advanced [...] 7:23 AM Procedure Code(s): --- Professional --- [address]3245, Colonoscopy, flexible; with removal of tumor(s), polyp(s), or other lesion(s) by snare technique Diagnosis Code(s): --- Professional --- K57.30, Diverticulosis of large intestine without perforation orabscess without bleeding K63.5, Polyp of colon K64.9, Unspecified hemorrhoids Z86.010, Personal history of colonic polyps CPT copyright 2019 [employer]. All rights reserved. The codes documented in this report are preliminary and upon physician/internist reviewmay be revised to meet current compliance requirements. 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 ADVANCE DIRECTIVE 01/03/2022 2:56 PM POWER OF SOIL SURVEYOR-MEDICAL * Full Code (Latest Code Status on [...] 6:30 PM 05/24/2020 4:53 PM Care Teams Councilman Relationship Specialty Start Date End Date Nick Almanzar MD [address] [place] [address] PCP - General Family Medicine 12/23/20 Luke Santiago MD Consulting Physician Pulmonary Disease 05/15/20 [place] [address] [facility] [address] [place] [address] Consulting Physician Pulmonary Disease 11/02/20 Jony Wilcox MD [address] [place] [address] [address] [place], [place] [id number] Consulting Physician Nephrology 06/19/23 Maria A Seymour MD [address] [facility] [address] [place] [address] Consulting Physician Interventional Cardiology 06/19/23 Alex Urbina MD [address] [place] [address] Consulting Physician Cardiology 06/19/23 [place] [address] [address] Nurse Practitioner Consumer Attorney 02/27/24
[2024-10-02 09:42] VITALS: BP 146/61; PULSE 55; RESP 20; TEMP 36.1; O2SAT 96; BMI 31.6
[2024-10-02] MEDS: LACTATED RINGERS 1,000 ML 150 ML IV CONT (09:53)
--- NOTE | 2024-10-02 09:56 | WPDANESEPPF ---
Anes - Initial Pre Proc Eval Procedure: Operation Date: 10/02/24 11:00 Proposed Procedures p Colonoscopy - Moreno Templeton MD Date/Time: 10/02/24 09:56 Surgeon: Moreno Templeton MD Pre Op Diagnosis: Diverticulitis of large intestine Patient Data Age: 78 Gender: M Height: 1.7 m Weight: 91.5 kg Last Vital Signs Temp 36.1 C L 10/02/24 09:42 Pulse 55 L 10/02/24 09:42 Resp 20 10/02/24 09:42 BP 146/61 H 10/02/24 09:42 Pulse Ox 96 10/02/24 09:42 O2 Del Method Room Air 10/02/24 09:42 Allergies Allergy/AdvReac Type Severity Reaction Status Date / Time Quinolones Allergy Mild RASH Verified 10/02/24 09:40 celecoxib Allergy Unknown Unknown Verified 10/02/24 09:40 levofloxacin Allergy Unknown Unknown Verified 10/02/24 09:40 Penicillins Allergy Unknown Unknown Verified 10/02/24 09:40 Home Medications ?Medication ?Instructions ?Recorded ?Confirmed ?Type albuterol 90 mcg/actuation aerosol 90 mcg inhalation .as needed PRN 03/25/20 09/17/24 History inhaler bronchospasm amlodipine 10 mg tablet 10 mg PO DAILY 03/25/20 10/02/24 History aspirin 81 mg capsule,delayed 81 mg PO DAILY 03/25/20 10/02/24 History release finasteride 5 mg tablet 5 mg PO DAILY 03/25/20 10/02/24 History rosuvastatin 40 mg tablet 40 mg PO DAILY 03/25/20 10/02/24 History umeclidinium 62.5 mcg-vilanterol 1 inh inhalation DAILY 03/25/20 10/02/24 History 25 mcg/actuation powdr for inhalation (Anoro Ellipta) allopurinol 100 mg tablet 100 mg PO DAILY 01/22/24 10/02/24 History carvedilol 25 mg tablet 25 mg PO Q12H 01/22/24 10/02/24 History duloxetine 30 mg capsule,delayed 30 mg PO DAILY 01/22/24 10/02/24 History release ferrous sulfate 325 mg (65 mg 325 mg PO DAILY 01/22/24 09/17/24 History iron) tablet,delayed release losartan 50 mg tablet 50 mg PO DAILY 01/22/24 10/02/24 History meclizine 12.5 mg tablet 12.5 mg PO TID PRN dizziness 01/22/24 09/17/24 History nitroglycerin 0.4 mg sublingual 0.4 mg sublingual Q5M PRN chest 01/22/24 09/17/24 History tablet pain omega-3 fatty acids 1,000 mg 1,000 mg PO DAILY 01/22/24 10/02/24 History capsule sertraline 25 mg tablet 25 mg PO DAILY 01/22/24 10/02/24 History ergocalciferol (vitamin D2) 1,250 1,250 mcg PO .2 weeks #7 caps 07/21/24 09/17/24 Rx mcg (50,000 unit) capsule Farxiga 10 mg tablet 10 mg PO DAILY #30 tabs 07/30/24 10/02/24 Rx (dapagliflozin propanediol) calcitriol 0.25 mcg capsule 0.25 mcg PO DAILY #90 caps 09/09/24 10/02/24 Rx Patient hx anesthesia problems: none Family hx anesthesia problems: none Results Review: All pre-operative results and documents have been reviewed as part of the pre-operative evaluation. [facility] Past Medical History Medical History (Updated 10/01/24 @ 09:46 by Ravinder Farias DO) DVT (deep venous thrombosis) COPD (chronic obstructive pulmonary disease) Chronic kidney disease, stage 3b Essential (primary) hypertension Hyperlipidemia, unspecified AMAYA (obstructive sleep apnea) CAD (coronary artery disease) Surgical History Surgical History (Updated 10/01/24 @ 09:46 by Ravinder Farias DO) Hx of fusion of cervical spine Social History Social History Smoking packs per day: 1 Smoking cigarettes per day: 20.0 Years smoked: 20 Smoking pack-years: 20.00 Smoking status: Former smoker Tobacco type: cigarettes Smoking end date: 04/16/96 Alcohol intake: never Substance use: never Substance use type: does not use Do You Feel Safe in your Home?: Yes Lack of Transportation: No Lack of Food: Never True Current Housing: I Have Housing Concerned About Future Housing: No Difficulty Paying Gas/Electric Bills: No Difficulty Paying for Meds: No Currently Unemployed: No Difficulty w/ Childcare or Family Care: No Living arrangements: with family Additional living arrangements comments: Gender identity (if verbalized by the patient): Male Sexual Orientation (if Verbalized by the Patient): Straight or Heterosexual Spiritual care concerns: No Anes - Eval Final PreProcedure Day of Procedure 10/02/24 09:56 Patient weight: obese Heart: regular rate and rhythm Lungs: clear to auscultation Airway: Mallampati scale class II Neurological: alert and oriented Last oral intake: >/= 8 hours ASA classification: III Emergent: no Anesthetic plan: proceed Anesthesia type and monitoring: general GIVS and standard monitoring Results Review: All pre-operative results and documents have been reviewed as part of the pre-operative evaluation. Informed Consent: The patient's anesthetic plan and its attendant risks and benefits were discussed with the patient/family/POA. Questions were solicited and answers provided to the satisfaction of the patient/family/POA.
--- NOTE | 2024-10-02 10:28 | PM.HPGS ---
History of Present Illness History of Present Illness Consent: Risks, benefits, and alternatives have been discussed and questions answered. Patient agrees to proceed with procedure. Chief complaint: Diverticulitis of large intestine Narrative: Ravinder Chapman is a 78 year old male here for colonoscopy, had diverticulitis now asymptomatic, last colonoscopy 2020 Review of Systems Review of Systems: All systems reviewed & are unremarkable except as noted in HPI and below PMFSH Past Medical History Medical History (Updated 10/02/24 @ 10:29 by Moreno Templeton MD) History of diverticulitis of colon DVT (deep venous thrombosis) COPD (chronic obstructive pulmonary disease) Chronic kidney disease, stage 3b Essential (primary) hypertension Hyperlipidemia, unspecified AMAYA (obstructive sleep apnea) CAD (coronary artery disease) Surgical History Surgical History (Updated 10/01/24 @ 09:46 by Ravinder Farias DO) Hx of fusion of cervical spine Social History Social History Smoking packs per day: 1 Smoking cigarettes per day: 20.0 Years smoked: 20 Smoking pack-years: 20.00 Smoking status: Former smoker Tobacco type: cigarettes Smoking end date: 04/16/96 Alcohol intake: never Substance use: never Substance use type: does not use Do You Feel Safe in your Home?: Yes Lack of Transportation: No Lack of Food: Never True Current Housing: I Have Housing Concerned About Future Housing: No Difficulty Paying Gas/Electric Bills: No Difficulty Paying for Meds: No Currently Unemployed: No Difficulty w/ Childcare or Family Care: No Living arrangements: with family Additional living arrangements comments: Gender identity (if verbalized by the patient): Male Sexual Orientation (if Verbalized by the Patient): Straight or Heterosexual Spiritual care concerns: No Meds Home Medications and Allergies Home Medications ?Medication ?Instructions ?Recorded ?Confirmed ?Type albuterol 90 mcg/actuation aerosol 90 mcg inhalation .as needed PRN 03/25/20 09/17/24 History inhaler bronchospasm amlodipine 10 mg tablet 10 mg PO DAILY 03/25/20 10/02/24 History aspirin 81 mg capsule,delayed 81 mg PO DAILY 03/25/20 10/02/24 History release finasteride 5 mg tablet 5 mg PO DAILY 03/25/20 10/02/24 History rosuvastatin 40 mg tablet 40 mg PO DAILY 03/25/20 10/02/24 History umeclidinium 62.5 mcg-vilanterol 1 inh inhalation DAILY 03/25/20 10/02/24 History 25 mcg/actuation powdr for inhalation (Anoro Ellipta) allopurinol 100 mg tablet 100 mg PO DAILY 01/22/24 10/02/24 History carvedilol 25 mg tablet 25 mg PO Q12H 01/22/24 10/02/24 History duloxetine 30 mg capsule,delayed 30 mg PO DAILY 01/22/24 10/02/24 History release ferrous sulfate 325 mg (65 mg 325 mg PO DAILY 01/22/24 09/17/24 History iron) tablet,delayed release losartan 50 mg tablet 50 mg PO DAILY 01/22/24 10/02/24 History meclizine 12.5 mg tablet 12.5 mg PO TID PRN dizziness 01/22/24 09/17/24 History nitroglycerin 0.4 mg sublingual 0.4 mg sublingual Q5M PRN chest 01/22/24 09/17/24 History tablet pain omega-3 fatty acids 1,000 mg 1,000 mg PO DAILY 01/22/24 10/02/24 History capsule sertraline 25 mg tablet 25 mg PO DAILY 01/22/24 10/02/24 History ergocalciferol (vitamin D2) 1,250 1,250 mcg PO .2 weeks #7 caps 07/21/24 09/17/24 Rx mcg (50,000 unit) capsule Farxiga 10 mg tablet 10 mg PO DAILY #30 tabs 07/30/24 10/02/24 Rx (dapagliflozin propanediol) calcitriol 0.25 mcg capsule 0.25 mcg PO DAILY #90 caps 09/09/24 10/02/24 Rx Allergies Allergy/AdvReac Type Severity Reaction Status Date / Time Quinolones Allergy Mild RASH Verified 10/02/24 09:40 celecoxib Allergy Unknown Unknown Verified 10/02/24 09:40 levofloxacin Allergy Unknown Unknown Verified 10/02/24 09:40 Penicillins Allergy Unknown Unknown Verified 10/02/24 09:40 Vital Signs Vital Signs - 24 hr 10/02/24 09:42 Temperature 97 F L Pulse Rate 55 L Respiratory Rate 20 Blood Pressure 146/61 H Pulse Oximetry 96 Oxygen Delivery Room Air Exam Const: General: comfortable and no acute distress HENMT: Face/Nose/Sinus: Normal nares present Eyes: General: appearance normal, both eyes and all related structures Neck: Neck: no JVD Resp: Auscultation: clear to auscultation bilaterally Cardio: Rate: regular rate Rhythm: regular rhythm GI: Inspection: non-distended GI Palp: Yes Soft to palpation Skin: General skin exam: normal color Neuro: Speech: normal speech Extrem: General: normal to inspection Psych: Mental Status: mental status grossly normal Assessment and Plan Assessment and plan (1) History of diverticulitis of colon: Code(s): Z87.19 - Personal history of other diseases of the digestive system Status: Acute Assessment and Plan: colonoscopy
--- NOTE | 2024-10-02 10:42 | S_PTH ---
PATIENT: Ravinder Chapman LOC: [facility] Reyes#:[id number] AGE/SX: 78/M ROOM: RE10/02/[address]: Moreno Templeton MD : 1945 BED: DIS: 10/02/2024 SPEC #: [id number] RECD: 10/02/24 12:58 STATUS: CASANDRA REDiana #: [id number] MARYLOU: 10/02/24 10:[address]: Moreno Templeton DEPT: [facility] Surgical RECD BY: Angie Newman ENTERED: 10/02/24 12:58 SP TYPE: Surgical OTHR DR: Nick AlmanzarMD Tissues: A - Colon Polypectomy B - Colon Polypectomy Procedures: Hematoxylin and Eosin Stain Gross and Microscopic Level 4
[2024-10-02 10:45] VITALS: BP 115/59; PULSE 53; RESP 18; O2SAT 93
[2024-10-02 10:55] VITALS: BP 115/66; PULSE 55; RESP 20; O2SAT 93
[2024-10-02 11:05] VITALS: BP 135/67; PULSE 54; RESP 14; O2SAT 97
== END 2024-10-02 11:18 | disposition home or self-care (01) ==
PROVIDERS: PCP Hospitalist; Referring Provider Nurse Practitioner; Visit Provider Internal Medicine Gastroenterology
PROC: 0DJD8ZZ Inspection of Lower Intestinal Tract, Via Natural or Artificial Opening Endoscopic (ICD-10-PCS; CPT 45378; principal; 2024-10-02 11:00)
DX: D12.2 Benign neoplasm of ascending colon (principal); D12.3 Benign neoplasm of transverse colon; K57.30 Diverticulosis of large intestine without perforation or abscess without bleeding; Z86.0100 Personal history of colon polyps, unspecified; Z87.19 Personal history of other diseases of the digestive system; Z87.891 Personal history of nicotine dependence; E66.9 Obesity, unspecified; Z68.31 Body mass index [BMI] 31.0-31.9, adult
CPT/HCPCS: 45385; 88305; J2003; J2704; J7120

== ENCOUNTER 2024-12-11 10:10 | Outpatient (CLI) | payer MEDICARE, SELFPAY ==
--- OUTSIDE RECORDS SUMMARY | 2023-11-14 10:00 | XMS_ITS ---
Author Organization [facility] Office Address [address] [place] [address] Care Team Providers Care Crown Wheel Assembler Name Role Phone Jony Wilcox Unavailable [phone] Medications Medication SIG (Take, Route, Frequency, Duration) Notes Start Date End Date Status Ergocalciferol 1.25 MG (05890 UT) 1 capsule Orally Once a week; Duration: 90 day(s) 09/12/2023 06/07/2024 Active Farxiga 10 MG 1 tablet Orally Once a day; Duration: 90 09/12/2023 06/07/2024 Active Losartan Potassium 50 MG 1 tablet Orally Once a day; Duration: 90 07/11/2023 Active Calcitriol 0.25 MCG 1 capsule Orally Onc e a day; Duration: 90 day(s) 07/11/2023 04/05/2024 Active Ergocalciferol 1.25 MG (48927 UT) 1 capsule Orally Once a week; Duration: 90 day(s) 07/11/2023 04/05/2024 Active Calcitriol 0.25 MCG 1 capsule Orally Onc e a day; Duration: 90 day(s) 09/12/2023 06/07/2024 Active Allopurinol 100 MG 1 tablet Orally Once a day; Duration: 90 day(s) 09/12/2023 06/07/2024 Active Encounters Encounter Location Date Provider Diagnosis Jairo Bruno [address] [place] [address] 11/14/2023 Jony Wilcox Chronic kidney disea se, stage 3b N18.32 ; Essential (primary) hypertension I10 ; Type 2 diabetes mellitus with hyperglycemia E11.65 ; Obesity, unspecified E66.9 and Anxiety disorder, unspecified F41.9 Assessments Encounter Date Diagnosis (ICD Code) Assessment Notes Treatment Notes Treatment Clinical Notes Section Notes 11/14/2023 Chronic kidney disease, stage 3b (ICD-10 - N18.32) 11/14/2023 Essential (primary) hypertension (ICD-10 - I10) 11/14/2023 Type 2 diabetes mellitus with hyperglycemia (ICD-10 - E11.65) 11/14/2023 Obesity, unspecified (ICD-10 - E66.9) 11/14/2023 Anxiety disorder, unspecified (ICD-10 - F41.9) Plan Of Treatment No Information Progress Notes * Ravinder HINOJOSA EDOB:[birth year] (79 yo M)Acc No.[id number]:11/14/2023 Progress Notes Patient: Ravinder NIÑO Provider: Ivonne WEIR MD, F.A.CDonP, F.A.S.N. :1945 A ge:77 Y S ex:Male Date:11/14/2023 Address:[address] [place] [address] Subjective: * Chief Complaints: * * Medical History: * Medications: T aking Losartan Potassium 50 MG Tablet 1 tablet Orally Once a day , Taking Calcitriol 0.25 MCG Capsule 1 capsule Orally Once a day , stop date 04/05/2024, Taking Ergocalciferol 1.25 MG (36549 UT) Capsule 1 capsule Orally Once a week , stop date 04/05/2024, Taking Calcitriol 0.25 MCG Capsule 1 capsule Orally Once a day , stop date 06/07/2024, Taking Allopurinol 100 MG Tablet 1 tablet Orally Once a day , stop date 06/07/2024, Taking Farxiga 10 MG Tablet 1 tablet Orally Once a day , stop date 06/07/2024, Taking Ergocalciferol 1.25 MG (11562 UT) Capsule 1 capsule Orally Once a week , stop date 06/07/2024 Objective: * Vitals: Assessment: * Assessment: 1. C hronic kidney disease, stage 3b - N18.32 (Primary) 2 . E ssential (primary) hypertension - I10 3 . T ype 2 diabetes mellitus with hyperglycemia - E11.65 4 . O besity, unspecified - E66.9 5 . A nxiety disorder, unspecified - F41.9 Plan: * Treatment: * Billing Information: * Visit Code: 77273 Office Visit, Est Pt., Level 4. * Procedure Codes: * Electronic signature of Ad Wilcox MD on 12/11/2024 at 10:18 AM CDT Sign off status: Pending * Provider: Ivonne WEIR MD, F.A.C.P, F.A.S.N. Date: 0 11/14/2023 Generated for Printing/Faxing/eTransmitting on: 0 12/11/2024 10:18 AM CDT
--- OUTSIDE RECORDS SUMMARY | 2024-02-07 09:00 | XMS_ITS ---
Author Organization [facility] Office Address [address] [facility] [address] [place] [address] Care Team Providers Care Product Management Manager Name Role Phone Brenden Jony Unavailable [phone] Encounters Encounter Location Date Provider Diagnosis Jairo Bruno [address] [place] [address] 02/07/2024 Ivonne Wilcox Plan Of Treatment No Information Progress Notes * Ravinder HINOJOSA EDOB:[birth year] (79 yo M)Acc No.[id number]:02/07/2024 Progress Notes Patient: Ravinder NIÑO Provider: Ivonne WEIR MD, F.Lorin.C.P, F.A.S.N. :1945 A ge:78 Y S ex:Male Date:02/07/2024 Address:[address] [place] [address] Subjective: * Chief Complaints: * * Medical History: Objective: * Vitals: Assessment: Plan: * Treatment: * Billing Information: * Visit Code: * Procedure Codes: * Electronic signature of Ad Wilcox MD on 12/11/2024 at 10:18 AM CDT Sign off status: Pending * Provider: Ivonne WEIR MD, F.Lorin.C.P, F.A.S.N. Date: Generated for Printing/Faxing/eTransmitting on: 0 12/11/2024 10:18 AM CDT
--- OUTSIDE RECORDS SUMMARY | 2024-02-08 10:15 | XMS_ITS ---
Author Organization [facility] Address [address] [facility] [address] [place] [address] Care Team Providers Care Child Care Sitter Name Role Phone Brenden Jony Unavailable [phone] Encounters Encounter Location Date Provider Diagnosis Jairo Bruno [address] [place] [address] 02/08/2024 Ivonne Wilcox Plan Of Treatment No Information Progress Notes * Ravinder HINOJOSA EDOB:[birth year] (79 yo M)Acc No.[id number]:02/08/2024 Patient: Ravinder NIÑO Provider: Ivonne WEIR MD, F.Lorin.C.P, F.A.S.N. :1945 A ge:78 Y S ex:Male Date:02/08/2024 Address:[address] [place] [address] Subjective: * Chief Complaints: Objective: Assessment: Plan: * Billing Information: * Visit Code: * Procedure Codes: * Electronic signature of Ad Wilcox MD on 12/11/2024 at 10:18 AM CDT Sign off status: Pending * Provider: Ivonne WEIR MD, F.Lorin.C.P, F.A.S.N. Date: Generated for Printing/Faxing/eTransmitting on: 0 12/11/2024 10:18 AM CDT
--- OUTSIDE RECORDS SUMMARY | 2024-12-11 10:18 | XMS_ITS | Clinical Summary ---
Author Organization [facility] [employer] Address [address] [place] [address] Care Team Providers Care Metal Wire Coating Operator Name Role Phone Michael Cheney MD Unavailable [phone] Nick Almanzar MD Primary Care Provider [phone] Source Comments [facility],non-owned Affiliates and Associated Physician Practices is amultiple site organization consisting of ambulatory clinics and hospital sitesin [place], [place], [place] and [place]. This disclosure is being madepursuant to the Care Everywhere program and may not contain all information available regarding this patient. 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 MECHANIC Sexual Orientation Straight 03/25/2021 3: 11 PM FAA CERTIFIED POWERPLANT MECHANIC Last Filed Vital Signs Vital Sign Reading Time Taken Comments Blood Pressure - - Pulse - - Temperature - - Respiratory Rate - - Oxygen Saturation - - Inhaled Oxygen Concentration - - Weight 93.9 kg (207 lb) 04/05/2021 2:31 PM FAA CERTIFIED POWERPLANT MECHANIC Height 171.5 cm (5' 7.5) 04/05/2021 2:31 PM FAA CERTIFIED POWERPLANT MECHANIC Body Mass Index 31.94 04/05/2021 2:31 PM FAA CERTIFIED POWERPLANT MECHANIC Plan of Treatment Health Maintenance Due Date Last Done Comments HEPATITIS C SCREENING 11/23/1964 DTAP/TDAP/TD VACCINES (1 - Tdap) 1965 PNEUMOCOCCAL VACCINE 50+ (1 of 2 - PCV) 1965 ZOSTER VACCINE (1 of 2) 1996 Respiratory Syncytial Virus (RSV) Vaccine Pt: or over 60 yrs (1 - 1-dose 75+ series) 2021 COVID-19 VACCINE ( - season) 2023 01/26/2021, 06/29/2020, 06/08/2020 DEPRESSION SCREENING 04/16/2024 MEDICARE AWV CALENDAR YEAR 2024 INFLUENZA VACCINE (#1) 2024 9, 03/12/2018, 03/12/2018, Additional history exists HEPATITIS B [...] patient's age to complete this topic Insurance [employer] MEDICARE ADV Care Teams Metal Wire Coating Operator Relationship Specialty Start Date End Date Nick Almanzar MD [address] [place] [address] PCP - General Family Medicine 02/25/21 [place] [address] [place] [address] Orthopedic Surgery 01/25/18
--- OUTSIDE RECORDS SUMMARY | 2024-12-11 10:18 | XMS_ITS | Patient Health Record ---
Author Organization [facility] Address [address] [facility] [address] [place] [address] Care Team Providers Care Roll Scale Worker Name Role Phone Jony Wilcox Unavailable [phone] Reason For Referral No Information Medications Medication SIG (Take, Route, Frequency, Duration) Notes Start Date End Date Status Losartan Potassium 50 MG TAKE 1 TABLET B Y MOUTH DAILY; Duration: 90 Active Problems Problem Type SNOMED Code ICD Code Onset Dates Problem Status W/U Status Risk Notes Problem Hyperglycemia due to type 2 diabetes mellitus (305819345634571) Type 2 diabetes mellitus with hyperglycemia (E11.65) Active confirmed Problem Obesity (056393557) Obesity, unspecified (E66.9) Active confirmed Problem Anxiety disorder (387483014) Anxiety disorder, unspecified (F41.9) Active confirmed Problem Essential hypertension (12404994) Essential (primary) hypertension (I10) Active confirmed Problem Chronic kidney disease stage 3B (disorder) (475720559) Chronic kidney disease, stage 3b (N18.32) Active confirmed Plan Of Treatment No Information
[2024-12-11 10:34] LABS: Hematocrit 42.6 % (42.0-52.0); Hemoglobin 13.4 g/dL (14.0-18.0); Mean Corpuscular HGB Conc 31.5 g/dl (32-36); Mean Corpuscular Hemoglobin 27.7 pg (26-34); Mean Corpuscular Volume 88.0 fl (80-100); Platelet Count Result 156 k/mm3 (150-375); Red Blood Count 4.84 M/mm3 (4.6-6.20); White Blood Count 6.6 K/mm3 (4.5-10.0)
[2024-12-11 10:47] LABS: Total Protein Urine Random 17 mg/dL; Ur Ttl Prot Creatinine Ratio 0.16 mg/mg (0-0.20)
[2024-12-11 10:52] LABS: Albumin Level 3.9 g/dL (3.5-5.1); Anion Gap 6 mmol/L (4-12); Blood Urea Nitrogen 31 mg/dL (9-20); Calcium 9.5 mg/dL (8.4-10.2); Carbon Dioxide 24 mmol/L (22-30); Chloride 109 mmol/L (98-107); Estimated Glomerular Filt Rate 29; Glucose 99 mg/dL (65-110); Potassium 4.6 mmol/L (3.4-5.0); Sodium 139 mmol/L (137-145); Uric Acid 4.8 mg/dL (3.5-8.5)
[2024-12-11 11:12] LABS: Parathyroid Intact 90.0 pg/mL (14.5-75.2)
== END 2024-12-11 10:11 | disposition home or self-care (01) ==
PROVIDERS: PCP Hospitalist; Visit Provider Internal Medicine Nephrology
DX: E55.9 Vitamin D deficiency, unspecified (principal); N18.32 Chronic kidney disease, stage 3b
CPT/HCPCS: 36415; 80069; 82306; 82570; 83970; 84156; 84550; 85027

== ENCOUNTER 2025-01-02 09:47 | Outpatient (CLI) | payer MEDICARE, SELFPAY ==
--- OUTSIDE RECORDS SUMMARY | 2025-01-02 09:50 | XMS_ITS | Encounter Summary ---
Author Organization [facility] Address [address] [place] [address] Care Team Providers Care Berry Picker Machine Operator Name Role Phone Luke Santiago MD Unavailable [phone] Michael Lynch MD Unavailable [phone] Nick Almanzar MD Primary Care Provider [phone] Jony Wilcox MD Unavailable [phone] Maria A Seymour MD Unavailable [phone] Alex Urbina MD Unavailable Vanessa Darling NP Unavailable [phone] Encounter Details Date Type Department Care Team (Late st Contact Info) Description 01/01/2025 Results Follow-Up [facility] [address] [address] Nick Almanzar MD [address] [place] [address] [place] [address] Vitamin D 25 hydroxy, Hepatitis B surface antibody (immune status) Blood, Hepatitis B core antibody, total Blood, Additional followed-up results: 6 Social History Tobacco Use Types Packs/Day Years [...] doctor or pharmacy Sometimes 10/09/2022 [facility] Utilities Answer Date Recorded In the past 12 months has e electric, gas, oil, or water company threatened to shut off services in your home? No 06/20/2023 Social Connection and Isolation Panel Answer Date Recorded In a typical week, how many times do you talk on the phone with family, friends, or neighbors? Three times a week 06/20/2023 How often do you get togethe r with friends or relatives? Once a week 06/20/2023 How often do you attend chur ch or voodoo services? More than 4 times per year 06/20/2023 Do you belong to any clubs o r organizations such as anabaptism groups, unions, fraternal or athletic groups, or [...] points, staff should administer the PHQ-9) 0 12/31/2024 Hunger Vital Sign Answer Date Recorded Within [...] making you feel afraid or unsafe? 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 Sexual Orientation Straight 12/22/2020 11 :36 AM CDT documented as of this encounter Plan of Treatment Not on file documented as of this encounter Visit Diagnoses Not on filedocumented in this encounter Care Teams Berry Picker Machine Operator Relationship Specialty Start Date End Date Nick Almanzar [place] [address] PCP - General Family Medicine 12/23/20 Luke Santiago MD Consulting Physician Pulmonary Disease 05/15/20 [place] [address] [address] [facility] [address] [place], [place] [id number] Consulting Physician Pulmonary Disease 11/02/20 Jony Wilcox MD [address] [place] [address] [address] [place] [address] Consulting Physician Nephrology 06/19/23 Maria A Seymour MD [address] [facility] [address] [place] [address] Consulting Physician Interventional Cardiology 06/19/23 Alex Urbina MD [address] [facility] [address], [facility] [address] [place] [address] Consulting Physician Cardiology 06/19/23 [place] [address] [address] [facility] [address] [place] [address] Nurse Practitioner Life Management Teacher 02/27/24 documented as of this encounter
--- OUTSIDE RECORDS SUMMARY | 2025-01-02 09:51 | XMS_ITS | Encounter Summary ---
Author Organization [facility] Address [address] [place] [address] Care Team Providers Care Binding Cutter Name Role Phone Luke Santiago MD Unavailable [phone] Michael Lynch MD Unavailable Nick Almanzar MD Primary Care Provider [phone] Jony Wilcox MD Unavailable [phone] Maria A Seymour MD Unavailable [phone] Alex Urbina MD Unavailable Vanessa Darling NP Unavailable Reason for Visit * Reason Onset Date Comments Med Refill 12/05/2024 Encounter Details Date Type Department Care Team (Late st Contact Info) Description 12/05/2024 [facility]phone [facility] [address] [address] Nick Almanzar MD [address] [place] [address] Med Refill Social History Tobacco Use Types Packs/Day Years [...] materials from doctor or pharmacy Sometimes 10/09/2022 [facility] Utilities Answer Date Recorded In the past 12 months has e ulike, gas, oil, or water [employer] threatened to shut off services in your home? No 06/20/2023 Social Connection and Isolation Panel Answer Date Recorded In a typical week, how many times do you talk on the phone with family, friends, or neighbors? Three times a week 06/20/2023 How often do you get togethe r with friends or relatives? Once a week 06/20/2023 [facility] or [facility]alism services? More than 4 times per year 06/20/2023 Do you belong to any clubs o r organizations such as protestant groups, unions, fraternal or athletic groups, or [...] place to sleep or slept in a group home (including now)? No 06/20/2023 Personal Safety Answer Date Recorded Have you ever been in or are you currently in a harmful physical or emotional relationship or is someone making you feel afraid or unsafe? 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 * Telephone Encounter - Kendra Shah - 12/05/2024 12:13 PM CDT Medication Question/Clarification Medication Name(s)/Dose: cephalexin (KEFLEX) 500 mg capsule What is the question or clarification needed? Patient is calling asking if the Almanzar thinks its ok to take the cephalexin (KEFLEX) 500 mg capsule? Patient is allergic to penicillin. If needed, Pharmacy(s) medication(s) should be sent to: Pharmacy on File Additional Comments: This is for an infection of left foot next to the last toe. Does message need to be routed? Yes-Action Needed documented in this encounter Plan of Treatment Not on file documented as of this encounter Visit Diagnoses Not on filedocumented in this encounter Care Teams Binding Cutter Relationship Specialty Start Date End Date Nick Almanzar MD [address] [place] [address] PCP - General Family Medicine 12/23/20 Luke Santiago MD Consulting Physician Pulmonary Disease 05/15/20 [place] [address] [address] [facility] [address] [place] [address] Consulting Physician Pulmonary Disease 11/02/20 Jony Wilcox MD [address] [place] [address] Consulting Physician Nephrology 06/19/23 Maria A Seymour MD [address] [facility] [address], [place] [address] Consulting Physician Interventional Cardiology 06/19/23 Alex Urbina MD [address] [facility] [address] [facility] [place] [address] Consulting Physician Cardiology 06/19/23 [place] [address] [address] [facility] [address] [place] [address] Nurse Practitioner Skein Mercerizing Machine Operator 02/27/24 documented as of this encounter
--- OUTSIDE RECORDS SUMMARY | 2025-01-02 09:51 | XMS_ITS | Clinical Summary ---
Author Organization [facility] Address [address] [place] [address] Care Team Providers Care Care Asst Name Role Phone Luke Santiago MD Unavailable Michael Lynch MD Unavailable Nick Almanzar MD Primary Care Provider [phone] Jony Wilcox MD Unavailable [phone] Maria A Seymour MD Unavailable [phone] Alex Urbina MD Unavailable [phone] Vanessa Darling NP Unavailable [phone] Allergies Active Allergy Reactions Criticality Noted Date Comments Celecoxib Unknown 08/02/2024 CELEBREX Doxycycline Muscle pain Medium 05/23/2023 Levofloxacin Other (See comments) Low Reaction: feels funny, Moxifloxacin Other (See comments) Low Reaction: didnt feel well, Penicillins Other (See comments) Low Reaction: hair loss, dents in arms, Quinolones Rash Medium 08/02/2024 Spironolactone Other (See comments) Low 06/27/2021 Gynecomastia Medications albuterol HFA (PROVENTIL HFA,VENTOLIN HFA,PROAIR HFA) 90 mcg/actuation inhaler Inhale 2 puffs every 6 (six) hours as needed for wheezing or shortness of breath 021 Active albuterol 2.5 mg /3 mL (0.083 %) nebulizer solution Take 3 mL (2.5 mg total) by nebulization every 6 (six) hours as needed for shortness of breath 021 Active ferrous sulfate 325 mg (65 mg of elemental iron) tabletIndications :Iron Deficiency Anemia Take 1 tablet (325 mg total) by mouth daily with breakfast Currently taking one tablet of 27 mg ferrous gluconate by mouth daily. Active omega-3 fatty acids 1,000 mg capsuleIndication s:per md advisement Take 1 capsule by mouth every morning fish oil; patient taking 1200 mg softgels. 021 Active Trelegy Ellipta 200-62.5-25 mcg inhaler USE 1 INHALATION BY MOUTH DAILY 120 each 5 022 Active acetaminophen (TYLENOL) 500 mg tabletIndications :Pain Take 1 tablet (500 mg total) by mouth every 6 (six) hours as needed for pain Active finasteride (PROSCAR) 5 mg tablet Take 1 tablet (5 mg total) by mouth daily 90 tablet 3 023 Active aspirin 81 mg enteric coated tablet Take 1 tablet (81 mg total) by mouth daily Active meclizine (ANTIVERT) 12.5 mg tabletIndications :Middle ear effusion, bilateral,Dizzine ss Take 1 tablet (12.5 mg total) by mouth 3 (three) times a day as needed for dizziness 90 tablet 024 Active nitroglycerin (NITROSTAT) 0.4 mg SL tabletIndications :Coronary artery disease of [place] artery of [place] heart with stable angina pectoris Place 1 tablet (0.4 mg total) under the tongue every 5 (five) minutes as needed for chest pain May repeat dose every 5 minutes for up to 3 doses total. 25 tablet 3 024 Active dapagliflozin propanediol (Farxiga) 10 mg tablet Take 1 tablet (10 mg total) by mouth daily 90 tablet 3 024 Active rosuvastatin (CRESTOR) 40 mg tabletIndications :Mixed hyperlipidemia Take 1 tablet (40 mg total) by mouth daily 100 tablet 3 025 Active ergocalciferol (VITAMIN D) 50,000 unit capsuleIndication s:Osteoporosis,Vi tamin D Deficiency Take 1 capsule (50,000 Units total) by mouth every 14 (fourteen) days 6 capsule 3 025 2025 Active allopurinoL (ZYLOPRIM) 100 mg tablet Take 1 tablet (100 mg total) by mouth daily 90 tablet 3 025 2025 Active losartan (COZAAR) 50 mg tablet Take 1 tablet (50 mg total) by mouth daily 90 tablet [address] (CYMBALTA) 30 mg capsule Take 1 capsule (30 mg total) by mouth daily 90 capsule 3 025 2025 Active amLODIPine (NORVASC) 10 mg tablet Take 1 tablet (10 mg total) by mouth daily 90 tablet 3 Active carvediloL (COREG) 25 mg tablet Take 1 tablet (25 mg total) by mouth 2 (two) times a day with meals 180 tablet 3 025 2025 Active sertraline (ZOLOFT) 50 mg tablet Take 1 tablet (50 mg total) by mouth daily 30 tablet 11 025 2025 Active calcitRIOL (ROCALTROL) 0.25 mcg capsule Take 1 capsule (0.25 mcg total) by mouth daily Active HYDROcodone-aceta minophen (NORCO) 5-325 mg per tabletIndications :Pain Take 1 tablet by mouth every 8 (eight) hours as needed for pain 10 tablet 024 2024 Discontinued(T herapy completed) sertraline (ZOLOFT) 25 mg tablet Take 1 tablet (25 mg total) by mouth daily 90 tablet 4 025 2024 Discontinued(R eorder) cephalexin (KEFLEX) 500 mg capsule Take 1 capsule (500 mg total) by mouth 4 (four) times a day for 7 days 28 capsule 025 2024 sulfamethoxazole- trimethoprim (Bactrim DS) 800-160 mg per tablet Take 1 tablet (160 mg of trimethoprim total) by mouth 2 (two) times a day for 7 days 14 tablet 025 2024 sertraline (ZOLOFT) 50 mg tablet Take 1 tablet (50 mg total) by mouth daily 90 tablet 4 025 2024 Discontinued Active Problems Problem Noted Date Diagnosed Date Moderate episode of recurrent major depressive d isorder 12/31/2024 Assessment & Plan (12/31/2024 4:42 PM CDT): Stable, multiple stressors; diagnosed with cancer, stressors around family Continue sertraline 50 mg daily, will reassess response to medications Weak urinary stream 12/19/2024 Vitamin D deficiency, unspecified 12/19/2024 Assessment & Plan (12/31/2024 4:41 PM CDT): Stable, well controlled; continue calcitriol 0.25 mcg daily; ergocalciferol 29951 units weekly Phimosis 12/19/2024 Depression 12/19/2024 Kidney disease 12/19/2024 Overview (12/19/2024): [employer] 04/07/2024 Diverticulitis 12/19/2024 Dependent edema 12/19/2024 Epididymitis 12/19/2024 Balanitis 12/19/2024 Asthma 12/19/2024 Abnormal results of kidney function studies 08/2024 Hydrocele 12/19/2024 Secondary hyperparathyroidism, not elsewhere cla ssified 06/02/2024 [...] kidney disease (CKD) 03/18/2023 Assessment & Plan (12/31/2024 4:41 PM CDT): Stable, no major changes in EGFR, ranging in the low 40s to high 30s PTH within normal range Continue calcium and vitamin-D supplementation Assessment & Plan (12/27/2023 1:34 PM CDT): [...] via J tube 06/21 and initially tolerating. Compliance Officer re advanced TFlushes & spot bolus [...] via J tube 06/21 and initially tolerating. Compliance Officer re advanced TFlushes & spot bolus [...] leukocytosis. Assessment & Plan (06/24/2022 5:08 PM DEPENDENCY CASE MANAGER): Per nursing over last few weeks [...] TF via J tube 06/21 and tolerating. Compliance Officer re TFlushes. Continue Strict aspiration precautions. - ANIA recently NAD, no constipation. Assessment & Plan (06/23/2022 4:00 PM DEPENDENCY CASE MANAGER): Per nursing over last few weeks [...] constipation. Assessment & Plan (06/22/2022 4:16 PM DEPENDENCY CASE MANAGER): Per nursing over last few weeks [...] NAD. Assessment & Plan (06/21/2022 3:29 PM DEPENDENCY CASE MANAGER): Per nursing over last few weeks [...] NAD. Assessment & Plan (06/20/2022 6:17 PM DEPENDENCY CASE MANAGER): Per nursing over last few weeks [...] negative. Assessment & Plan (06/24/2022 5:06 PM DEPENDENCY CASE MANAGER): UA on 3/2 with nitrates and >50 WBC. No urine cultures with MDR. Started IV ceftriaxone. Might be adding some component to the AMS, but no change noted with treatment with IV Ceftriaxone (3/2-c). Urine Cx growing Klebsiella variicola. Sensitivities include ceftriaxone. Pt completed 7 day course 06/22/22. Checked for urinary retention, bladder scan negative. Assessment & Plan (06/23/2022 3:59 PM DEPENDENCY CASE MANAGER): UA on 3/2 with nitrates and >50 WBC. No urine cultures with MDR. Started IV ceftriaxone. Might be adding some component to the AMS, but no change noted with treatment with IV Ceftriaxone (3/2-c). Urine Cx growing Klebsiella variicola. Sensitivities include ceftriaxone. Pt completed 7 day course 06/22/22. Checked for urinary retention, bladder scan negative. Assessment & Plan (06/22/2022 4:16 PM DEPENDENCY CASE MANAGER): UA on 3/2 with nitrates and [...] CTX Assessment & Plan (06/21/2022 3:31 PM DEPENDENCY CASE MANAGER): UA on 3/2 with nitrates and >50 WBC. No urine cultures with MDR. Started IV ceftriaxone. Might be adding some component to the AMS. -Ceftriaxone 3/2- completes 7 day course on 06/22/22. Check for urinary retention, bladder scan negative. -Urine Cx growing Klebsiella variicola. Sensitivities back. S to CTX Assessment & Plan (06/19/2022 10:12 PM DEPENDENCY CASE MANAGER): UA on 3/2 with nitrates and >50 WBC. No urine cultures with MDR. Will start him on ceftriaxone while urine culture results. Might be adding some component to the AMS. -Ceftriaxone 3/2- complete 7 day course. Check for urinary retention. -Urine Cx growing Klebsiella variicola. Sensitivities back. S to CTX Assessment & Plan (06/16/2022 12:04 PM DEPENDENCY CASE MANAGER): UA on 3/2 with nitrates and >50 WBC. No urine cultures with MDR. Will start him on ceftriaxone while urine culture results. Might be adding some component to the AMS. -Ceftriaxone 3/2- -Urine Cx growing Klebsiella variicola. Sensitivities pending. Assessment & Plan (06/15/2022 1:24 PM DEPENDENCY CASE MANAGER): UA on 32 with nitrates and [...] unremarkable. Assessment & Plan (06/24/2022 5:03 PM DEPENDENCY CASE MANAGER): Normocytic. AOCD pattern on labs. Likely from GIN, serious illness, frequent blood draws, etc. -Intermittently requiring PRBC last 06/03/22. F/u Hb 7.8, limit routine labs. No evidence of hematuria, melena or hematochezia. Assessment & Plan (06/23/2022 3:48 PM DEPENDENCY CASE MANAGER): Normocytic. AOCD pattern on labs. Likely from GIN, serious illness, frequent blood draws, etc. -Intermittently requiring PRBC last 06/03/22. F/u Hb 7.3, limit routine labs. No evidence of hematuria, melena or hematochezia. Assessment & Plan (06/22/2022 4:08 PM DEPENDENCY CASE MANAGER): Normocytic. AOCD pattern on labs. Likely from GIN, serious illness, frequent blood draws, etc. -Intermittently requiring PRBC last 06/03/22. F/u Hb 7.3, limit routine labs. No evidence of hematuria, melena or hematochezia. Assessment & Plan (06/21/2022 3:23 PM DEPENDENCY CASE MANAGER): Normocytic. AOCD pattern on labs. Likely from GIN, serious illness, frequent blood draws, etc. -Intermittently requiring PRBC last 06/03/22. F/u Hb 7.5, limit routine labs. Assessment & Plan (06/20/2022 6:09 PM DEPENDENCY CASE MANAGER): Normocytic. AOCD pattern on labs. Likely from GIN, serious illness, frequent blood draws, etc. -Intermittently requiring PRBC last 06/03/21. F/u Hb 7.5, limit routine labs. Assessment & Plan (06/16/2022 11:57 AM DEPENDENCY CASE MANAGER): Normocytic. AOCD pattern on labs. Likely from GIN, serious illness, frequent blood draws, etc. -Intermittently requiring PRBC last 06/03/21. Assessment & Plan (06/15/2022 1:22 PM DEPENDENCY CASE MANAGER): Normocytic. AOCD pattern on labs. Likely from GIN, serious illness, frequent blood draws, etc. -Intermittently requiring PRBC last 06/03/21. Assessment & Plan (06/14/2022 2:26 PM DEPENDENCY CASE MANAGER): Normocytic. AOCD pattern on labs. Likely from GIN, serious illness, frequent blood draws, etc. -Intermittently requiring PRBC last 06/03/21. F/u Hb 8.1. Assessment & Plan (06/13/2022 4:10 PM DEPENDENCY CASE MANAGER): Normocytic. AOCD pattern on labs. Likely from GIN, serious illness, frequent blood draws, etc. -Intermittently requiring PRBC last 06/03/21. F/u Hb 8.1. Assessment & Plan (06/12/2022 6:17 PM DEPENDENCY CASE MANAGER): Normocytic. AOCD pattern on labs. Likely from GIN, serious illness, frequent blood draws, etc. - intermittently requiring PRBC last 06/03/21. F/u Hb 8.1. Billing statement. I have reviewed current Hb 8.5, remains stable post recent transfusion with HD stability. Plan to limit blood draws, monitor serial counts for additional needs. Transfuse PRN Hb<7. Assessment & Plan (06/11/2022 4:33 PM DEPENDENCY CASE MANAGER): Normocytic. AOCD pattern on labs. Likely from GIN, serious illness, frequent blood draws, etc. - intermittently requiring PRBC last 06/03/21. F/u Hb 8.1. Billing statement. I have reviewed current Hb 8.5, remains stable post recent transfusion with HD stability. Plan to limit blood draws, monitor serial counts for additional needs. Transfuse PRN Hb<7 Assessment & Plan (06/10/2022 3:23 PM DEPENDENCY CASE MANAGER): Normocytic. AOCD pattern on labs. Likely from GIN, serious illness, frequent blood draws, etc. - intermittently requiring PRBC last 06/03/21. F/u Hb 8.1. Billing statement. I have reviewed current Hb 8.1, remains stable post recent transfusion with HD stability. Plan to limit blood draws, monitor serial counts for additional needs. Transfuse PRN Hb<7 Assessment & Plan (06/10/2022 9:24 AM DEPENDENCY CASE MANAGER): Normocytic. AOCD pattern on labs. Likely from GIN, serious illness, frequent blood draws, etc. - intermittently requiring PRBC last 06/03/21. F/u Hb 8.1. Billing statement. I have reviewed current Hb 8.1, remains stable post recent transfusion with HD stability. Plan to limit blood draws, monitor serial counts for additional needs. Transfuse PRN Hb<7 Assessment & Plan (06/08/2022 4:02 PM DEPENDENCY CASE MANAGER): Normocytic. AOCD pattern on labs. Likely from GIN, serious illness, frequent blood draws, etc. - intermittently requiring PRBC last 06/03/21. F/u Hb 8.1. Billing statement. I have reviewed current Hb 8.1, remains stable post recent transfusion with HD stability. Plan to limit blood draws, monitor serial counts for additional needs. Assessment & Plan (06/07/2022 11:00 AM DEPENDENCY CASE MANAGER): Normocytic. AOCD pattern on labs. Likely from GIN, serious illness, frequent blood draws, etc. - intermittently requiring PRBC last 06/03/21 Billing statement. I have reviewed current Hb 8.1, remains stable post recent transfusion with HD stability. Plan to limit blood draws, monitor serial counts for additional needs. Assessment & Plan (06/06/2022 6:31 PM DEPENDENCY CASE MANAGER): Normocytic. 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 - intermittently requiring PRBC last 06/03 Billing statement. I have reviewed current Hb 8.1, remains stable post transfusion. Plan to limit blood draws, monitor serial counts. Assessment & Plan (06/05/2022 2:00 PM DEPENDENCY CASE MANAGER): - Normocytic. 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 - intermittently requiring PRBC last 06/03 Assessment & Plan (06/04/2022 11:09 AM DEPENDENCY CASE MANAGER): - Normocytic. 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 - f/u CBC today p 1 unit PRBC 06/03 Assessment & Plan (06/03/2022 2:57 PM DEPENDENCY CASE MANAGER): - Normocytic. 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 - requiring 1 unit PRBC today for slow drop likely AOCD and lab draws Assessment & Plan (06/02/2022 2:26 PM DEPENDENCY CASE MANAGER): - Normocytic. 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 - cont to monitor H/H, transfuse for Hb < 7, remains relatively stable but at borderline of requiring PRBC Assessment & Plan (06/01/2022 2:18 PM DEPENDENCY CASE MANAGER): - Normocytic. 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 - cont to monitor H/H, transfuse for Hb < 7, remains relatively stable but at borderline of requiring PRBC Assessment & Plan (05/31/2022 2:57 PM DEPENDENCY CASE MANAGER): - Normocytic. 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 - cont to monitor H/H, transfuse for Hb < 7 Assessment & Plan (05/30/2022 2:03 PM DEPENDENCY CASE MANAGER): - Normocytic. 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 - cont to monitor H/H, transfuse for Hb < 7 Assessment & Plan (05/29/2022 3:13 PM DEPENDENCY CASE MANAGER): Normocytic. B12, folate normal. Likely from GIN, serious illness, frequent blood draws, etc. Drop over last 24 hrs likely dilutional due to IVF. No e/o bleeding - cont to monitor H/H, transfuse for Hb < 7 - ferritin high, c/w anemia of chronic dz Assessment & Plan (05/28/2022 1:53 PM DEPENDENCY CASE MANAGER): Normocytic. B12, folate normal. Likely from GIN, serious illness, frequent blood draws, etc. Drop over last 24 hrs likely dilutional due to IVF. No e/o bleeding - cont to monitor H/H, transfuse for Hb < 7 - ferritin high, c/w anemia of chronic dz Assessment & Plan (05/27/2022 3:53 PM DEPENDENCY CASE MANAGER): Normocytic. B12, folate normal. Likely from GIN, serious illness, frequent blood draws, etc. Drop over last 24 hrs likely dilutional due to IVF. No e/o bleeding - cont to monitor H/H, transfuse for Hb < 7 - ferritin high, c/w anemia of chronic dz Assessment & Plan (05/26/2022 1:22 PM DEPENDENCY CASE MANAGER): Normocytic. B12, folate normal. Likely from [...] -Apparently can get denosumab but would need TRACK PATROL approval. Appreciate nephrology help sensipar not an [...] -Apparently can get denosumab but would need TRACK PATROL approval. Appreciate nephrology help sensipar not an [...] status. Assessment & Plan (06/24/2022 5:06 PM DEPENDENCY CASE MANAGER): Normocalcemic on arrival. Uncorrected Ca as [...] -Apparently can get denosumab but would need TRACK PATROL approval. Appreciate nephrology help sensipar not an [...] am. Assessment & Plan (06/23/2022 3:58 PM DEPENDENCY CASE MANAGER): Normocalcemic on arrival. Uncorrected Ca as [...] -Apparently can get denosumab but would need TRACK PATROL approval. Appreciate nephrology help sensipar not an [...] 06/23. Assessment & Plan (06/22/2022 4:15 PM DEPENDENCY CASE MANAGER): Normocalcemic on arrival. Uncorrected Ca as [...] -Apparently can get denosumab but would need TRACK PATROL approval. Appreciate nephrology help sensipar not an [...] iCa. Assessment & Plan (06/21/2022 3:27 PM DEPENDENCY CASE MANAGER): Normocalcemic on arrival. Uncorrected Ca as [...] -Apparently can get denosumab but would need TRACK PATROL approval. Appreciate nephrology help sensipar not an [...] response. Assessment & Plan (06/20/2022 6:15 PM DEPENDENCY CASE MANAGER): Normocalcemic on arrival. Uncorrected Ca as [...] -Apparently can get denosumab but would need TRACK PATROL approval. Appreciate nephrology help sensipar not an [...] approval. Assessment & Plan (06/16/2022 11:57 AM DEPENDENCY CASE MANAGER): Normocalcemic on arrival. Uncorrected Ca as [...] low level hyperCa. Recommend continued NPO by [facility] 06/08. - Continue water flushes per tube (300 q4). - Ca++ increased today: 12.1 (11.9). - if Cr continues to downtrend may be able to consider bisphosphonate. 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 - Cosyntropin test within normal limits, AI ruled out. - 1L of IVF today Assessment & Plan (06/15/2022 1:22 PM DEPENDENCY CASE MANAGER): Normocalcemic on arrival. Uncorrected Ca as [...] low level hyperCa. Recommend continued NPO by [facility] 06/08. - Continue water flushes per tube (300 q4). - Ca++ increased today: 12.1 (11.9). - if Cr continues to downtrend may be able to consider bisphosphonate. 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 - Cosyntropin test within normal limits, AI ruled out. Assessment & Plan (06/14/2022 2:26 PM DEPENDENCY CASE MANAGER): Normocalcemic on arrival. Uncorrected Ca as [...] low level hyperCa. Recommend continued NPO by [facility] 06/08. - Continue water flushes per tube (300 q4). - Ca++ increased today: 12.1 (11.9). - if Cr continues to downtrend may be able to consider bisphosphonate. 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 Recommending ordering cosyntropin to rule out adrenal insufficiency. Assessment & Plan (06/13/2022 4:03 PM DEPENDENCY CASE MANAGER): Normocalcemic on arrival. Uncorrected Ca as [...] low level hyperCa. Recommend continued NPO by [facility] 06/08. - Continue water flushes per tube (300 q4). - Ca++ decreased today: 11.9 (12.8). - if Cr continues to downtrend may be able to consider bisphosphonate. - Continue to monitor Assessment & Plan (06/12/2022 6:20 PM DEPENDENCY CASE MANAGER): Normocalcemic on arrival. Uncorrected Ca as [...] supplementation. Assessment & Plan (06/11/2022 4:35 PM DEPENDENCY CASE MANAGER): Normocalcemic on arrival. Uncorrected Ca as [...] low level hyperCa. Recommend continued NPO by [facility] 06/08. - cont water per [...] supplementation. Assessment & Plan (06/10/2022 3:28 PM DEPENDENCY CASE MANAGER): Normocalcemic on arrival. Uncorrected Ca as [...] low level hyperCa. Recommend continued NPO by [facility] 06/08. - cont water per [...] supplementation. Assessment & Plan (06/10/2022 9:27 AM DEPENDENCY CASE MANAGER): Normocalcemic on arrival. Uncorrected Ca as [...] supplementation. Assessment & Plan (06/08/2022 4:09 PM DEPENDENCY CASE MANAGER): Normocalcemic on arrival. Uncorrected Ca as [...] supplementation. Assessment & Plan (06/07/2022 11:04 AM DEPENDENCY CASE MANAGER): Normocalcemic on arrival. Uncorrected Ca as [...] supplementation. Assessment & Plan (06/06/2022 6:40 PM DEPENDENCY CASE MANAGER): Normocalcemic on arrival. Uncorrected Ca as [...] supplementation. Assessment & Plan (06/05/2022 1:59 PM DEPENDENCY CASE MANAGER): - Normocalcemic on arrival. Uncorrected Ca [...] now Assessment & Plan (06/04/2022 11:09 AM DEPENDENCY CASE MANAGER): - Normocalcemic on arrival. Uncorrected Ca [...] considered Assessment & Plan (06/03/2022 2:56 PM DEPENDENCY CASE MANAGER): - Normocalcemic on arrival. Uncorrected Ca [...] 11.4 Assessment & Plan (06/02/2022 2:25 PM DEPENDENCY CASE MANAGER): - Normocalcemic on arrival. Uncorrected Ca [...] IVF Assessment & Plan (06/01/2022 2:18 PM DEPENDENCY CASE MANAGER): - Normocalcemic on arrival. Uncorrected Ca [...] d/c Assessment & Plan (05/31/2022 2:57 PM DEPENDENCY CASE MANAGER): - Normocalcemic on arrival. Uncorrected Ca [...] stable/downtrending Assessment & Plan (05/30/2022 2:01 PM DEPENDENCY CASE MANAGER): - Normocalcemic on arrival. Uncorrected Ca [...] improve Assessment & Plan (05/29/2022 3:13 PM DEPENDENCY CASE MANAGER): - Normocalcemic on arrival. Uncorrected Ca [...] improve Assessment & Plan (05/28/2022 1:52 PM DEPENDENCY CASE MANAGER): - Normocalcemic on arrival. Uncorrected Ca [...] improve Assessment & Plan (05/27/2022 3:52 PM DEPENDENCY CASE MANAGER): - Normocalcemic on arrival. Uncorrected Ca [...] today Assessment & Plan (05/26/2022 1:19 PM DEPENDENCY CASE MANAGER): - Normocalcemic on arrival. Uncorrected Ca [...] IVF Assessment & Plan (05/27/2022 3:53 PM DEPENDENCY CASE MANAGER): - Has been hypo- and hypernatremic during course Sodium now normal, cont to monitor daily BMP Assessment & Plan (05/26/2022 1:19 PM DEPENDENCY CASE MANAGER): - Has been hypo- and hypernatremic during course Sodium now normal, cont to monitor daily BMP Cervical stenosis of spine 09/19/2021 Overview (09/19/2021): Added automatically from request for surgery [id number] Assessment & Plan (11/10/2022 9:33 AM CDT): [...] need NSGY clinic OP follow up at [place]; NSGY to arrange; Dr. Casas no longer at [facility] Assessment & Plan (06/26/2022 5:11 PM CDT): Presented for elective C 3-5 ACDF and C3-7 posterior fusion on 03/17/22. Sutures out. NSurg f/u appreciated. Plan MRI c/t spine as above, assess for structural or occult infection (unlikely). Touch base with neurosurgery when imaging available Elevated ESR, CRP. Will need NSGY clinic OP follow up at [place]. Surgical incision healed well. No muscular spasticity [...] need NSGY clinic OP follow up at [place]. Surgical incision healed well. No muscular spasticity noted on LE exam. Bilateral strength intact. Therapy per neurosurgery, if able to participate, currently doesn't follow commands. Assessment & Plan (06/24/2022 5:04 PM DEPENDENCY CASE MANAGER): Presented for elective C 3-5 ACDF and C3-7 posterior fusion on 03/17/22. Sutures out. NSurg f/u appreciated. Plan MRI c/t spine as above, assess for structural or occult infection (unlikely). Will need NSGY clinic OP follow up at [place]. Surgical incision healed well. No muscular spasticity noted on LE exam. Bilateral strength intact. Therapy per neurosurgery, if able to participate, currently doesn't follow commands. Assessment & Plan (06/23/2022 3:49 PM DEPENDENCY CASE MANAGER): Presented for elective C 3-5 ACDF and C3-7 posterior fusion on 03/17/22. Sutures out. NSurg f/u appreciated. Will need NSGY clinic OP follow up [place] Surgical incision healed well. No muscular spasticity noted on LE exam. Bilateral strength intact. Therapy per neurosurgery, if able to participate, currently doesn't follow commands. Assessment & Plan (06/22/2022 4:10 PM DEPENDENCY CASE MANAGER): Presented for elective C 3-5 ACDF and C3-7 posterior fusion on 03/17/22. Sutures out. Will need NSGY clinic OP follow up at [place]. Surgical incision healed well. No muscular spasticity noted on LE exam. Bilateral strength intact. Therapy per neurosurgery, if able to participate, currently doesn't follow commands. Assessment & Plan (06/21/2022 3:24 PM DEPENDENCY CASE MANAGER): Presented for elective C 3-5 ACDF and C3-7 posterior fusion on 03/17/22. Sutures out. Will need NSGY clinic OP follow up [place]. Surgical incision healed well. No muscular spasticity noted on LE exam. Therapy per neurosurgery, if able to participate. Assessment & Plan (06/20/2022 6:10 PM DEPENDENCY CASE MANAGER): Presented for elective C 3-5 ACDF and C3-7 posterior fusion on 03/17/22. Sutures out. Will need [place]GY clinic OP follow up [place] Surgical incision healed well. No muscular spasticity noted on LE exam. Therapy per neurosurgery, if able to participate. Assessment & Plan (06/16/2022 11:56 AM DEPENDENCY CASE MANAGER): Presented for elective C 3-5 ACDF and C3-7 posterior fusion on 03/17/22. Sutures out. Will need [place]GY clinic [place] follow up [place] Surgical incision healed well. No muscular spasticity noted on LE exam. Therapy per neurosurgery, if able to participate. Assessment & Plan (06/15/2022 1:19 PM DEPENDENCY CASE MANAGER): Presented for elective C 3-5 ACDF and C3-7 posterior fusion on 03/17/22. Sutures out. Will need [place]GY clinic [place] follow up [place] Surgical incision healed well. No muscular spasticity noted on LE exam. Therapy per neurosurgery, if able to participate. Assessment & Plan (06/14/2022 2:19 PM DEPENDENCY CASE MANAGER): Presented for elective C 3-5 ACDF and C3-7 posterior fusion on 03/17/22. Sutures out. Will need [place]GY clinic [place] follow up [place] Surgical incision healed well. No muscular spasticity noted on LE exam. Therapy per neurosurgery, if able to participate. Assessment & Plan (06/13/2022 3:58 PM DEPENDENCY CASE MANAGER): Presented for elective C 3-5 ACDF and C3-7 posterior fusion on 03/17/22. Sutures out. Will need [place]GY clinic [place] follow up [place] Surgical incision healed well. No muscular spasticity noted on LE exam. Therapy per neurosurgery, if able to participate. Assessment & Plan (06/12/2022 6:18 PM DEPENDENCY CASE MANAGER): Presented for elective C 3-5 ACDF and C3-7 posterior fusion on 03/17/22. Sutures out. Will need [place]GY clinic [place] follow up [place] Surgical incision healed well. No muscular spasticity noted on LE exam. Therapy per neurosurgery, if able to participate. Plan DC to SNF once bed available. Assessment & Plan (06/11/2022 4:33 PM DEPENDENCY CASE MANAGER): Presented for elective C 3-5 ACDF and C3-7 posterior fusion on 03/17/22. Sutures out. Will need NSGY clinic OP follow up [place] Surgical incision healed well. No muscular spasticity noted on exam. Therapy per neurosurgery. Plan DC to SNF once bed available. Assessment & Plan (06/10/2022 3:23 PM DEPENDENCY CASE MANAGER): Presented for elective C 3-5 ACDF and C3-7 posterior fusion on 03/17/22. Sutures out. Will need NSGY clinic OP follow up [place] Surgical incision healing well. No muscular spasticity noted on exam. Therapy per neurosurgery. Plan DC to SNF once bed available. Assessment & Plan (06/10/2022 9:24 AM DEPENDENCY CASE MANAGER): Presented for elective C 3-5 ACDF and C3-7 posterior fusion on 03/17/22. Sutures out. Will need NSGY clinic [place] follow up [place] Surgical incision healing well. No muscular spasticity noted on exam. Therapy per neurosurgery. Plan DC to SNF Assessment & Plan (06/08/2022 3:56 PM DEPENDENCY CASE MANAGER): Presented for elective C 3-5 ACDF and C3-7 posterior fusion on 03/17/22. Sutures out. Will need NSGY clinic OP follow up [place] Surgical incision healing well. No muscular spasticity noted on exam. Assessment & Plan (06/07/2022 10:57 AM DEPENDENCY CASE MANAGER): Presented for elective C 3-5 ACDF and C3-7 posterior fusion on 03/17/22. Sutures out. Will need NSGY clinic OP follow up [place] Surgical incision healing well. No muscular spasticity noted on exam. Assessment & Plan (06/06/2022 6:33 PM DEPENDENCY CASE MANAGER): Presented for elective C 3-5 ACDF and C3-7 posterior fusion on 03/17. Sutures out. Will need [place]GY follow up at [place] Surgical incision healing well. No muscular spasticity noted on exam. Assessment & Plan (06/05/2022 2:02 PM DEPENDENCY CASE MANAGER): - Presented for elective C 3-5 ACDF and C3-7 posterior fusion on 03/17. Sutures out. Will need [place] follow up [place] Assessment & Plan (05/31/2022 2:57 PM DEPENDENCY CASE MANAGER): - Presented for elective C 3-5 ACDF and C3-7 posterior fusion on 03/17. Sutures out. Will need [place]GY follow up at [place]. Assessment & Plan (05/30/2022 2:04 PM DEPENDENCY CASE MANAGER): - Presented for elective C 3-5 ACDF and C3-7 posterior fusion on 03/17. Sutures out. Will need [place] follow up [place] Assessment & Plan (05/29/2022 3:13 PM DEPENDENCY CASE MANAGER): - Presented for elective C 3-5 ACDF and C3-7 posterior fusion on 03/17. Sutures out. Will need [place] follow up [place] Assessment & Plan (05/28/2022 1:53 PM DEPENDENCY CASE MANAGER): - Presented for elective C 3-5 ACDF and C3-7 posterior fusion on 03/17. Sutures out. Will need [place]GY follow up at [place] Assessment & Plan (05/27/2022 3:53 PM DEPENDENCY CASE MANAGER): - Presented for elective C 3-5 ACDF and C3-7 posterior fusion on 03/17. Sutures out. Will need [place]GY follow up [place] Assessment & Plan (05/25/2022 3:16 PM DEPENDENCY CASE MANAGER): - Presented for elective C 3-5 ACDF and C3-7 posterior fusion on 03/17. Sutures out. Will need [place] follow up [place]. Strangulated inguinal hernia 09/19/2021 Overview (04/09/2022): Added automatically from request for surgery [id number] Assessment & Plan (08/16/2022 5:36 PM CDT): [...] stranding. Assessment & Plan (06/23/2022 4:00 PM DEPENDENCY CASE MANAGER): S/p ex lap and repair 04/09. Had evidence of intestinal ischemia. Well healed incision. -Still NPO, swallow study redone given his being more awake, but speech recommends continued NPO status. On J tube feeds. Assessment & Plan (06/22/2022 4:16 PM DEPENDENCY CASE MANAGER): S/p ex lap and repair 04/09. Had evidence of intestinal ischemia. Well healed incision. -Still NPO, swallow study redone given his being more awake, but speech recommends continued NPO status. Assessment & Plan (06/21/2022 3:27 PM DEPENDENCY CASE MANAGER): S/p ex lap and repair 04/09. Had evidence of intestinal ischemia. Well healed incision. -Still NPO, swallow study redone given his being more awake, but speech recommends continued NPO status. Assessment & Plan (06/20/2022 6:16 PM DEPENDENCY CASE MANAGER): S/p ex lap and repair 04/09. Had evidence of intestinal ischemia. Well healed incision. -Still NPO, swallow study redone given his being more awake, but speech recommends continued NPO status. Assessment & Plan (06/16/2022 11:56 AM DEPENDENCY CASE MANAGER): S/p ex lap and repair 04/09. Had evidence of intestinal ischemia. Well healed incision. -Tolerating TF at goal per Gtube. Nutritional needs appear to be getting met. -Remains NPO per speech follow up on 06/14. Ok to do ice chips. Assessment & Plan (06/15/2022 1:20 PM DEPENDENCY CASE MANAGER): S/p ex lap and repair 04/09. Had evidence of intestinal ischemia. Well healed incision. -Tolerating TF at goal per Gtube. Nutritional needs appear to be getting met. -Remains NPO per speech follow up on 06/14. Ok to do ice chips. Assessment & Plan (06/14/2022 2:20 PM DEPENDENCY CASE MANAGER): S/p ex lap and repair 04/09. Had evidence of intestinal ischemia. Well healed incision. -Tolerating TF at goal per Gtube. Nutritional needs appear to be getting met. -Remains NPO per speech follow up on 06/08. Ok to do ice chips. Assessment & Plan (06/13/2022 3:59 PM DEPENDENCY CASE MANAGER): S/p ex lap and repair 04/09. Had evidence of intestinal ischemia. Well healed incision. -Tolerating TF at goal per Gtube. Nutritional needs appear to be getting met. -Remains NPO per speech follow up on 06/08. Assessment & Plan (06/12/2022 6:20 PM DEPENDENCY CASE MANAGER): S/p ex lap and repair 04/09. Had evidence of intestinal ischemia. Well healed incision. - tolerating TF per Gtube. Nutritional needs appear to be getting met. -Remains NPO per speech f/u 06/08. Billing statement I have reviewed electrolytes, K 3.6, ca 12.5. Discussed with RN and no tube feed residuals. Plan strict aspiration precautions, further advance diet and adjust tube feeds per milk collector. Plan to recheck bed weight. Assessment & Plan (06/11/2022 4:35 PM DEPENDENCY CASE MANAGER): S/p ex lap and repair 04/09. Had evidence of intestinal ischemia. Well healed incision. - tolerating TF per Gtube. Nutritional needs appear to be getting met. -Remains NPO per speech f/u 06/08. Billing statement I have reviewed electrolytes, K 3.6, ca 12.5. Discussed with RN and no tube feed residuals. Plan strict aspiration precautions, further advance diet and adjust tube feeds per milk collector. Plan to recheck bed weight. Assessment & Plan (06/10/2022 3:30 PM DEPENDENCY CASE MANAGER): S/p ex lap and repair 04/09. Had evidence of intestinal ischemia. Well healed incision. - tolerating TF per Gtube. Nutritional needs appear to be getting met. -Remains NPO per speech f/u 06/08. Billing statement I have reviewed electrolytes, K 3.6, ca 12.8. Discussed with RN and no tube feed residuals. Plan strict aspiration precautions, further advance diet and adjust tube feeds per milk collector. Plan to recheck bed weight. Assessment & Plan (06/10/2022 9:27 AM DEPENDENCY CASE MANAGER): S/p ex lap and repair 04/09. Had evidence of intestinal ischemia. Well healed incision. - tolerating TF per Gtube. Nutritional needs appear to be getting met. - ADAT per speech. Billing statement I have reviewed electrolytes, K 3.3, ca 10.6. Discussed with RN and no tube feed residuals. Plan strict aspiration precautions, further advance diet and adjust tube feeds per milk collector. Plan to recheck bed weight. Assessment & Plan (06/08/2022 4:11 PM DEPENDENCY CASE MANAGER): S/p ex lap and repair 04/09. Had evidence of intestinal ischemia. Well healed incision. - tolerating TF per Gtube. Nutritional needs appear to be getting met. - ADAT per speech. Billing statement I have reviewed electrolytes, K 3.3, ca 10.6. Discussed with RN and no tube feed residuals. Plan further advance diet and adjust tube feeds per milk collector. Plan to recheck bed weight. Assessment & Plan (06/07/2022 11:08 AM DEPENDENCY CASE MANAGER): S/p ex lap and repair 04/09. [...] weight. Assessment & Plan (06/06/2022 6:41 PM DEPENDENCY CASE MANAGER): - S/p ex lap and repair 04/09. Had evidence of intestinal ischemia. Well healed incision. - tolerating TF per Gtube. - NPO per speech. Billing statement I have reviewed electrolytes, K 3.3, ca 10.6. Discussed with RN and no tube feed residuals. Plan to continue tube feeds at current rate. Assessment & Plan (06/05/2022 2:01 PM DEPENDENCY CASE MANAGER): - S/p ex lap and repair 04/09. Had evidence of intestinal ischemia. Well healed incision. - tolerating TF - NPO per speech Assessment & Plan (06/04/2022 11:09 AM DEPENDENCY CASE MANAGER): - S/p ex lap and repair 04/09. Had evidence of intestinal ischemia. Well healed incision. - tolerating TF - NPO per speech Assessment & Plan (06/02/2022 2:26 PM DEPENDENCY CASE MANAGER): - S/p ex lap and repair 04/09. Had evidence of intestinal ischemia. Well healed incision. - tolerating TF - NPO per speech Assessment & Plan (06/01/2022 2:18 PM DEPENDENCY CASE MANAGER): - S/p ex lap and repair 04/09. Had evidence of intestinal ischemia. Well healed incision. - tolerating TF - NPO per speech Assessment & Plan (05/31/2022 2:57 PM DEPENDENCY CASE MANAGER): - S/p ex lap and repair 04/09. Had evidence of intestinal ischemia. Well healed incision. - tolerating TF - NPO per speech Assessment & Plan (05/30/2022 2:04 PM DEPENDENCY CASE MANAGER): - S/p ex lap and repair 04/09. Had evidence of intestinal ischemia. Well healed incision. - tolerating TF - NPO 2/2 mental status Assessment & Plan (05/29/2022 3:13 PM DEPENDENCY CASE MANAGER): - S/p ex lap and repair 04/09. Had evidence of intestinal ischemia. Well healed incision. Assessment & Plan (05/28/2022 1:53 PM DEPENDENCY CASE MANAGER): - S/p ex lap and repair 04/09. Had evidence of intestinal ischemia. Well healed incision. Assessment & Plan (05/27/2022 3:53 PM DEPENDENCY CASE MANAGER): - S/p ex lap and repair 04/09. Had evidence of intestinal ischemia. Well healed incision. Assessment & Plan (05/25/2022 3:17 PM DEPENDENCY CASE MANAGER): - S/p ex lap and repair 04/09. Had evidence of intestinal ischemia. Well healed incision. Age-related osteoporosis wit hout current pathological fracture 08/23/2021 Assessment & Plan (10/25/2021 3:35 PM CDT): Not well controlled, patient also has hypo vitamin-D Will start alendronate 70 mg weekly Continue ergocalciferol 94617 units weekly Ensure calcium approximately 1000 mg [...] (01/27/2021): Added automatically from request for surgery [id number] Bilateral primary osteoarthritis of knee 021 Assessment [...] ambulation Assessment & Plan (04/29/2021 11:06 AM DEPENDENCY CASE MANAGER): Stable, patient reports occasional episodes of vertigo, generally well controlled, uses cane as needed for steadiness Assessment & Plan (09/16/2020 11:50 AM CDT): Vestibular rehab for vestibular dysfunction Good hydration LBBB (left bundle branch block) 06/08/2020 Thrush 05/14/2020 Hypophosphatemia 05/10/2020 Hyperglycemia 05/08/2020 COPD (chronic obstructive pulmonary disease) Assessment & Plan (12/31/2024 4:40 PM CDT): Stable, gets tired near the end of every day; needs nap Continue Trelegy Ellipta 1 puff daily, albuterol PRN Assessment & Plan (12/27/2023 1:33 PM CDT): [...] Stable. Assessment & Plan (06/24/2022 5:04 PM DEPENDENCY CASE MANAGER): History of COPD. Managed with Budesonide nebs and PRN albuterol. Prior exacerbation treatment this stay, currently controlled. Currently on RA, no wheezing. Unable to follow commands for MDI, continue nebulizers with RT and doing well. Stable. Assessment & Plan (06/23/2022 3:49 PM DEPENDENCY CASE MANAGER): History of COPD. Managed with Budesonide nebs and PRN albuterol. Prior exacerbation treatment this stay, currently controlled. Currently on RA, no wheezing. -Unable to follow commands for MDI, continue nebulizers with RT and doing well. Assessment & Plan (06/22/2022 4:10 PM DEPENDENCY CASE MANAGER): History of COPD. Managed with Budesonide nebs and PRN albuterol. Prior exacerbation treatment this stay, currently controlled. Currently on RA, no wheezing. -Unable to follow commands for MDI, continue nebulizers and doing well. Assessment & Plan (06/21/2022 3:24 PM DEPENDENCY CASE MANAGER): History of COPD. Managed with Budesonide nebs and PRN albuterol. Prior exacerbation treatment this stay, currently controlled. Currently on RA, no wheezing. -Unable to follow commands for MDI, continue nebs. Doing well. Assessment & Plan (06/20/2022 6:10 PM DEPENDENCY CASE MANAGER): History of COPD. Managed with Budesonide nebs and PRN albuterol. Prior exacerbation treatment this stay, currently controlled. Currently on RA, no wheezing. -Unable to follow commands for MDI, continue nebs. Doing well. Assessment & Plan (06/16/2022 11:50 AM DEPENDENCY CASE MANAGER): History of COPD. Managed with Budesonide nebs and PRN albuterol. Prior exacerbation treatment this stay, currently controlled. Currently on RA, no wheezing. -Unable to follow commands for MDI, continue nebs. Assessment & Plan (06/15/2022 1:18 PM DEPENDENCY CASE MANAGER): History of COPD. Managed with Budesonide nebs and PRN albuterol. Prior exacerbation treatment this stay, currently controlled. Currently on RA, no wheezing. -Unable to follow commands for MDI, continue nebs. Assessment & Plan (06/14/2022 2:19 PM DEPENDENCY CASE MANAGER): History of COPD. Managed with Budesonide nebs and PRN albuterol. Prior exacerbation treatment this stay, currently controlled. Currently on RA, no wheezing. -Unable to follow commands for MDI, continue nebs. Assessment & Plan (06/13/2022 3:55 PM DEPENDENCY CASE MANAGER): History of COPD. Managed with Budesonide nebs and PRN albuterol. Prior exacerbation treatment this stay, currently controlled. Currently on RA, no wheezing. -Unable to follow commands for MDI, continue nebs. Assessment & Plan (06/12/2022 6:18 PM DEPENDENCY CASE MANAGER): Hx COPD. Managed Budesonide nebs and [...] plan. Assessment & Plan (06/11/2022 4:33 PM DEPENDENCY CASE MANAGER): Hx COPD. Managed Budesonide nebs and [...] plan. Assessment & Plan (06/10/2022 3:24 PM DEPENDENCY CASE MANAGER): Hx COPD. Managed Budesonide nebs and PRN albuterol. Prior exacerbation treatment this stay, currently controlled On 2L-RA. Unable to follow commands for MDI, continue nebs. Billing statement Reviewed O2 requirements last 24hrs and recent chest imaging, exam without wheezing but encephalopathy limits use of MDIs. Plan to continue nebs as prescribed. No change in current plan. Assessment & Plan (06/10/2022 9:25 AM DEPENDENCY CASE MANAGER): Hx COPD. Managed Budesonide nebs and PRN albuterol. Prior exacerbation treatment this stay, currently controlled On 2L-RA. Billing statement Reviewed O2 requirements last 24hrs and recent chest imaging, exam without wheezing but encephalopathy limits use of MDIs. Plan to continue nebs as prescribed. No change in current plan. Assessment & Plan (06/08/2022 4:03 PM DEPENDENCY CASE MANAGER): Hx COPD. Managed Budesonide nebs and PRN albuterol. Prior exacerbation treatment this stay, currently controlled On 2L-RA. Billing statement Reviewed O2 requirements last 24hrs and recent chest imaging, exam without wheezing but encephalopathy limits use of MDIs. Plan to continue nebs as prescribed. Assessment & Plan (06/07/2022 11:02 AM DEPENDENCY CASE MANAGER): - Budesonide nebs and PRN albuterol. Prior exacerbation treatment this stay, currently controlled On RA Billing statement Reviewed O2 requirements last 24hrs and recent chest imaging, exam without wheezing but encephalopathy limits use of MDIs. Plan to continue nebs as prescribed. Assessment & Plan (06/06/2022 6:34 PM DEPENDENCY CASE MANAGER): - Budesonide nebs and PRN albuterol. Prior exacerbation treatment this stay, currently controlled On RA Billing statement Reviewed O2 requirements and recent chest imaging. Plan DC continuous O2 sat monitoring. Assessment & Plan (06/05/2022 2:02 PM DEPENDENCY CASE MANAGER): - Budesonide nebs and PRN albuterol. Prior exacerbation treatment this stay, currently controlled On RA Assessment & Plan (05/30/2022 2:04 PM DEPENDENCY CASE MANAGER): - Budesonide nebs and PRN albuterol. Prior exacerbation treatment this stay, currently controlled On RA Assessment & Plan (05/29/2022 3:13 PM DEPENDENCY CASE MANAGER): - Budesonide nebs and PRN albuterol. Prior exacerbation treatment this stay, currently controlled On RA Assessment & Plan (05/28/2022 1:53 PM DEPENDENCY CASE MANAGER): - Budesonide nebs and PRN albuterol. Prior exacerbation treatment this stay, currently controlled On RA Assessment & Plan (05/27/2022 3:53 PM DEPENDENCY CASE MANAGER): - Budesonide nebs and PRN albuterol. Prior exacerbation treatment this stay, currently controlled On RA Assessment & Plan (05/26/2022 1:17 PM DEPENDENCY CASE MANAGER): - Budesonide nebs and PRN albuterol. [...] Ellipta Assessment & Plan (06/07/2021 4:52 PM DEPENDENCY CASE MANAGER): Stable, well controlled; quit smoking approximately 24 years ago Active in pulmonary rehab, walking for up to 60 minutes at a time new line rare use of rescue inhaler Continue Trelegy Ellipta 1 puff daily Assessment & Plan (04/29/2021 11:07 AM DEPENDENCY CASE MANAGER): Stable, well controlled; patient reports he does get dyspneic especially significant exertion Follows with pulmonology for management Continue Trelegy Ellipta 1 puff daily, albuterol p.r.n. for dyspnea Assessment & Plan (02/21/2021 8:31 PM DEPENDENCY CASE MANAGER): Continues to have significant cough, barking [...] daily Assessment & Plan (06/07/2021 4:51 PM DEPENDENCY CASE MANAGER): Stable, well controlled; continue to monitor Assessment & Plan (04/29/2021 11:07 AM DEPENDENCY CASE MANAGER): Stable, well controlled; patient reports occasional episodes of nocturia x1 Continue finasteride 5 mg daily Assessment & Plan (05/06/2020 12:57 PM DEPENDENCY CASE MANAGER): Patient does report increased urine frequency. [...] issues. Assessment & Plan (05/06/2020 12:56 PM DEPENDENCY CASE MANAGER): Continue meclizine prn. Assessment & Plan (04/08/2020 3:22 AM DEPENDENCY CASE MANAGER): Patient feels ataxic but [id number] and [id number] were normal. MRI is pending. Neurology has been consulted. Meclizine has not helped. Fall precautions. May need PT after MRI is completed. Assessment & Plan (04/07/2020 1:52 PM DEPENDENCY CASE MANAGER): With new lethargy, orthostatic hypotension- I [...] 03/04/2019 Assessment & Plan (03/04/2019 2:55 PM DEPENDENCY CASE MANAGER): Will do emg/ncs . Recommended cock-up wrist brace, especially to be worn at night. Nsaids. Primary osteoarthritis of left knee 01/25/2018 Synovial cyst of left popliteal space 11/04/2017 Essential hypertension 02/26/2013 Overview (07/20/2016): Hypertension Assessment & Plan (12/31/2024 4:42 PM CDT): Stable, well controlled, blood pressure at goal Continue amlodipine 10 mg daily, carvedilol 25 mg b.i.d. Assessment & Plan (12/27/2023 1:32 PM CDT): [...] monitor. Assessment & Plan (06/24/2022 5:05 PM DEPENDENCY CASE MANAGER): Continue amlodipine 10 mg daily. Discontinued home HCTZ on admit. On coreg and uptitrated to 25 BID on 06/05/22. Volume stable off dialysis. No peripheral edema. -Mostly normotensive, will continue to monitor. Assessment & Plan (06/23/2022 3:49 PM DEPENDENCY CASE MANAGER): Continue amlodipine 10 mg daily. Discontinued home HCTZ on admit. On coreg and uptitrated to 25 BID on 06/05/22. Volume stable off dialysis. -Mostly normotensive, will continue to monitor. Assessment & Plan (06/22/2022 4:11 PM DEPENDENCY CASE MANAGER): Continue amlodipine 10 mg daily. Discontinued home HCTZ on admit. On coreg and uptitrated to 25 BID on 06/05/22. Volume stable off dialysis. -Mostly normotensive, will continue to monitor. Assessment & Plan (06/21/2022 3:25 PM DEPENDENCY CASE MANAGER): Continue amlodipine 10 mg daily. Discontinued home HCTZ on admit. On coreg and uptitrated to 25 BID on 06/05. Volume stable. -Mostly normotensive, will continue to monitor. Assessment & Plan (06/20/2022 6:10 PM DEPENDENCY CASE MANAGER): -Continue amlodipine 10 mg daily -Continue coreg. Uptitrated coreg 25 BID on 06/05. Volume stable. -Mostly normotensive, will continue to monitor. Assessment & Plan (06/16/2022 11:50 AM DEPENDENCY CASE MANAGER): -Continue amlodipine 10 mg daily -Continue coreg. Uptitrated coreg 25 BID on 06/05. -Mostly normotensive, will continue to monitor. Assessment & Plan (06/15/2022 1:17 PM DEPENDENCY CASE MANAGER): -Continue amlodipine 10 mg daily -Continue coreg. Uptitrated coreg 25 BID on 06/05. -Mostly normotensive, will continue to monitor. Assessment & Plan (06/14/2022 2:19 PM DEPENDENCY CASE MANAGER): -Continue amlodipine 10 mg daily -Continue coreg. Uptitrated coreg 25 BID on 06/05. -Mostly normotensive, will continue to monitor. Assessment & Plan (06/13/2022 3:54 PM DEPENDENCY CASE MANAGER): -Continue amlodipine 10 mg daily -Continue coreg. Uptitrated coreg 25 BID on 06/05. -Mostly normotensive, will continue to monitor. Assessment & Plan (06/12/2022 6:19 PM DEPENDENCY CASE MANAGER): Cont amlodipine, coreg, uptitrated coreg to 25 bid given persistent HTN 2. Improved trend, continue dosing at this level. Billing statement Plan continue dual agent control. Plan monitor renal function as OP. Assessment & Plan (06/11/2022 4:34 PM DEPENDENCY CASE MANAGER): Cont amlodipine, coreg, uptitrated coreg to 25 bid given persistent HTN 220. Improved trend, continue dosing at this level. Billing statement Plan continue dual agent control. Plan monitor renal function. Assessment & Plan (06/10/2022 3:25 PM DEPENDENCY CASE MANAGER): Cont amlodipine, coreg, uptitrated coreg to 25 bid given persistent HTN 2/20. Improved trend, continue dosing at this level. Billing statement Plan continue dual agent control. Plan monitor renal function. Assessment & Plan (06/10/2022 9:25 AM DEPENDENCY CASE MANAGER): Cont amlodipine, coreg, uptitrated coreg to 25 bid given persistent HTN 2/20. Improved trend, continue dosing at this level. Billing statement Plan continue dual agent control. Assessment & Plan (06/08/2022 4:04 PM DEPENDENCY CASE MANAGER): Cont amlodipine, coreg, uptitrated coreg to 25 bid given persistent HTN 2/20. Improved trend, continue dosing at this level. Billing statement Plan dual agent control. Assessment & Plan (06/07/2022 11:03 AM DEPENDENCY CASE MANAGER): Cont amlodipine, coreg, uptitrated coreg to 25 bid given persistent HTN 06/05. Improved trend, continue dosing at this level. Assessment & Plan (06/06/2022 6:35 PM DEPENDENCY CASE MANAGER): Cont amlodipine, coreg, uptitrated coreg to 25 bid given persistent HTN 06/05. Improved trend, will hold dosing at this level. Assessment & Plan (06/05/2022 2:02 PM DEPENDENCY CASE MANAGER): Cont amlodipine, coreg, uptitrated coreg to 25 bid given persistent HTN 06/05 Assessment & Plan (05/30/2022 2:05 PM DEPENDENCY CASE MANAGER): Cont amlodipine, coreg Assessment & Plan (05/29/2022 3:13 PM DEPENDENCY CASE MANAGER): Cont current meds Assessment & Plan (05/28/2022 1:53 PM DEPENDENCY CASE MANAGER): Cont current meds Assessment & Plan (05/27/2022 3:53 PM DEPENDENCY CASE MANAGER): Cont current meds Assessment & Plan (05/26/2022 1:17 PM DEPENDENCY CASE MANAGER): Cont current meds Assessment & Plan [...] mg Assessment & Plan (06/07/2021 4:50 PM DEPENDENCY CASE MANAGER): Stable, well controlled; blood pressure at target today Continue hydrochlorothiazide 25 mg daily Assessment & Plan (04/29/2021 11:04 AM DEPENDENCY CASE MANAGER): Controlled; blood pressure at target Continue amlodipine 10 mg, to chlorothiazide 25 mg, losartan 100 mg Assessment & Plan (07/20/2020 7:39 AM CDT): Rechecked in office and was 136/78. Will continue to monitor. May need to change medication. Pt also sees cardiology. Will see him back next month and will recheck Assessment & Plan (05/06/2020 12:55 PM DEPENDENCY CASE MANAGER): Presented with elevated BP. Presently well controlled. Continue home Amlodipine and Losartan. HCTZ is on hold as patient is currently on iv fluids. Assessment & Plan (04/08/2020 3:18 AM DEPENDENCY CASE MANAGER): Amlodipine and losartan have been resumed with hold parameters. Holding hydrochlorothiazide as it can cause vertigo. Assessment & Plan (03/24/2020 8:24 AM DEPENDENCY CASE MANAGER): Blood pressure is adequately controlled on [...] recommended. Assessment & Plan (06/07/2021 4:51 PM DEPENDENCY CASE MANAGER): Stable, well controlled; continue sertraline 100 [...] change. Assessment & Plan (05/06/2020 12:54 PM DEPENDENCY CASE MANAGER): Continue home Prozac. Mood is stable at this time. Assessment & Plan (04/08/2020 3:18 AM DEPENDENCY CASE MANAGER): Continue SSRI Assessment & Plan (03/24/2020 8:24 AM DEPENDENCY CASE MANAGER): Stable on current medication. Continue fluoxetine [...] 02/26/2013 Overview (07/21/2016): Hyperlipidemia Assessment & Plan (12/31/2024 4:40 PM CDT): Stable, well controlled, lipids in within normal limits Encourage low-fat high-fiber diet Continue rosuvastatin 40 mg daily Assessment & Plan (12/27/2023 1:33 PM CDT): [...] mg Assessment & Plan (06/07/2021 4:50 PM DEPENDENCY CASE MANAGER): Stable, well controlled; no side effects from current medication Continue rosuvastatin 40 mg daily Assessment & Plan (04/29/2021 11:05 AM DEPENDENCY CASE MANAGER): Stable, well controlled LDL less than 100; continues to have elevated ASCVD risk score 24.8% Continue rosuvastatin 40 mg daily, good blood pressure control Assessment & Plan (05/06/2020 12:54 PM DEPENDENCY CASE MANAGER): Continue home statin Assessment & Plan (04/08/2020 3:18 AM DEPENDENCY CASE MANAGER): Continue Crestor Assessment & Plan (03/24/2020 8:24 AM DEPENDENCY CASE MANAGER): Lipid abnormalities are stable, [facility] Pharmacotherapy as ordered. Order for lipid [...] Problem Noted Date Diagnosed Date Resolved Date Malignant neoplasm of brain 12/19/2024 12/31/2024 Deep vein thrombosis (DVT) d uring current [...] 03/18/2023 Assessment & Plan (06/17/2022 5:35 PM DEPENDENCY CASE MANAGER): New dx after mild coughing noted and then called in 05/29 to note she tested positive at home. Remdesivir x 3 doses. No hypoxia/fever. COVID RECOVERED Assessment & Plan (06/16/2022 11:58 AM DEPENDENCY CASE MANAGER): New dx after mild coughing noted and then called in 05/29 to note she tested positive at home. Remdesivir x 3 doses. No hypoxia/fever. COVID RECOVERED Assessment & Plan (06/15/2022 1:22 PM DEPENDENCY CASE MANAGER): New dx after mild coughing noted and then called in 05/29 to note she tested positive at home. Remdesivir x 3 doses. No hypoxia/fever. COVID RECOVERED Assessment & Plan (06/14/2022 2:26 PM DEPENDENCY CASE MANAGER): New dx after mild coughing noted and then called in 05/29 to note she tested positive at home. Remdesivir x 3 doses. No hypoxia/fever. COVID RECOVERED Assessment & Plan (06/13/2022 4:14 PM DEPENDENCY CASE MANAGER): New dx after mild coughing noted and then called in 05/29 to note she tested positive at home. Remdesivir x 3 doses. No hypoxia/fever. COVID RECOVERED Assessment & Plan (06/12/2022 6:19 PM DEPENDENCY CASE MANAGER): - new dx after mild coughing [...] hospital policy 06/10, awaiting private room at [facility]. Assessment & Plan (06/11/2022 4:34 PM DEPENDENCY CASE MANAGER): - new dx after mild coughing [...] hospital policy 06/10, awaiting private room at [facility]. Assessment & Plan (06/10/2022 3:25 PM DEPENDENCY CASE MANAGER): - new dx after mild coughing [...] per hospital policy, awaiting private room at [facility]. Assessment & Plan (06/10/2022 9:25 AM DEPENDENCY CASE MANAGER): - new dx after mild coughing [...] SNF. Assessment & Plan (06/08/2022 4:04 PM DEPENDENCY CASE MANAGER): - new dx after mild coughing [...] SNF. Assessment & Plan (06/07/2022 11:03 AM DEPENDENCY CASE MANAGER): - new dx after mild coughing [...] SNF. Assessment & Plan (06/06/2022 6:33 PM DEPENDENCY CASE MANAGER): - new dx after mild coughing [...] policy. Assessment & Plan (06/05/2022 1:56 PM DEPENDENCY CASE MANAGER): - new dx after mild coughing noted and then called in 05/29 to note she tested positive at home - given high risk for worsening and has mild cough gave remdesivir x 3 doses - remains on isolation (05/30 day 1) - anticipate 10 days - thus far no hypoxia/fever, still having intermittent cough Assessment & Plan (06/04/2022 11:00 AM DEPENDENCY CASE MANAGER): - new dx after mild coughing noted and then called in 05/29 to note she tested positive at home - given high risk for worsening and has mild cough gave remdesivir x 3 doses - remains on isolation (05/30 day 1) - anticipate 10 days - thus far no hypoxia/fever and cough slowly improving Assessment & Plan (06/03/2022 2:56 PM DEPENDENCY CASE MANAGER): - new dx after mild coughing noted and then called in 05/29 to note she tested positive at home - given high risk for worsening and has mild cough gave remdesivir x 3 doses - cough seems to be improving today, remains on isolation ( 1) - monitor for hypoxia/fever Assessment & Plan (06/02/2022 2:25 PM DEPENDENCY CASE MANAGER): - new dx after mild coughing noted and then called in 05/29 to note she tested positive at home - given high risk for worsening and has mild cough gave remdesivir x 3 doses - thus far still coughing, had one cough induced emesis event 06/01 PM - monitor for hypoxia/fever Assessment & Plan (06/01/2022 2:17 PM DEPENDENCY CASE MANAGER): - new dx after mild coughing noted and then called in 05/29 to note she tested positive at home - given high risk for worsening and has mild cough gave remdesivir x 3 doses which he finishes today; no further complication as of now - monitor for hypoxia, currently on RA Assessment & Plan (05/31/2022 2:56 PM DEPENDENCY CASE MANAGER): - new dx after mild coughing noted and then called in 05/29 to note she tested positive at home - given high risk for worsening and has mild cough will complete Remdesivir 200 mg x1 then 100 mg x 2 additional doses (completes 06/01) - monitor for hypoxia, currently on RA Assessment & Plan (05/30/2022 1:59 PM DEPENDENCY CASE MANAGER): - new dx after mild coughing noted and then called in last night to note she tested positive at home - given high risk for worsening and has mild cough will start Remdesivir 200 mg x1 then 100 mg x 2 additional doses - monitor for hypoxia, currently on RA Transaminitis 05/30/2022 06/17/2022 Assessment & Plan (06/17/2022 5:35 PM DEPENDENCY CASE MANAGER): Mild increase noted when diagnosed with Covid. Statin held. Now resolved. -Continue Crestor 10mg Assessment & Plan (06/16/2022 11:58 AM DEPENDENCY CASE MANAGER): Mild increase noted when diagnosed with Covid. Statin held. Now resolved. -Continue Crestor 10mg Assessment & Plan (06/15/2022 1:23 PM DEPENDENCY CASE MANAGER): Mild increase noted when diagnosed with Covid. Statin held. Now resolved. -Re-starting Crestor 10mg Assessment & Plan (06/14/2022 2:26 PM DEPENDENCY CASE MANAGER): Mild increase noted when diagnosed with Covid. Statin held. Now resolved. -Re-starting Crestor 10mg Assessment & Plan (06/13/2022 4:19 PM DEPENDENCY CASE MANAGER): Mild increase noted when diagnosed with Covid. Statin held. Now resolved. -Re-starting Crestor 10mg Assessment & Plan (06/05/2022 2:01 PM DEPENDENCY CASE MANAGER): - mild noted on recent labs, ?2/2 covid - still mild uptrend - holding statin as well in meantime, reviewed med list and rest of meds aren't big offenders for LFT issues Assessment & Plan (06/03/2022 2:57 PM DEPENDENCY CASE MANAGER): - mild noted on recent labs, ?viral vs. Other >meds - cont to hold statin and monitor > mildly better today, cont to watch Assessment & Plan (06/02/2022 2:26 PM DEPENDENCY CASE MANAGER): - mild noted on recent labs, ?viral vs. Other >meds - cont to hold statin and monitor Assessment & Plan (06/01/2022 2:19 PM DEPENDENCY CASE MANAGER): - mild noted on recent labs, ?viral vs. Other >meds - still mildly worsening so will hold statin at this point and observe course Assessment & Plan (05/31/2022 2:58 PM DEPENDENCY CASE MANAGER): - mild noted on recent labs, [...] monitoring. Assessment & Plan (06/24/2022 5:02 PM DEPENDENCY CASE MANAGER): R femoral v DVT noted on US 05/08. No pitting edema appreciated on RLE. Plan: Continue Apixaban 5 BID. Monitoring serial blood counts and Hb remains stable on serial monitoring. Assessment & Plan (06/23/2022 3:48 PM DEPENDENCY CASE MANAGER): R femoral v DVT noted on US 05/08. No pitting edema appreciated on RLE. Plan: - Continue Apixaban 5 BID. Monitoring serial blood counts and Hb remains stable on serial monitoring. Assessment & Plan (06/22/2022 4:07 PM DEPENDENCY CASE MANAGER): R femoral v DVT noted on US 05/08. No pitting edema appreciated on RLE. - Continue Apixaban 5 BID. Monitoring serial blood counts and Hb remains stable. Assessment & Plan (06/21/2022 3:22 PM DEPENDENCY CASE MANAGER): R femoral v DVT noted on US 05/08. No pitting edema appreciated on RLE. - Continue Apixaban 5 BID. Monitoring serial blood counts and remains stable. Assessment & Plan (06/20/2022 6:08 PM DEPENDENCY CASE MANAGER): R femoral v DVT noted on US 05/08. No pitting edema appreciated on RLE. - Continue Apixaban 5 BID. Assessment & Plan (06/16/2022 12:00 PM DEPENDENCY CASE MANAGER): R femoral v DVT noted on US 05/08. No pitting edema appreciated on RLE. - Continue Apixaban 5 BID Assessment & Plan (06/15/2022 1:23 PM DEPENDENCY CASE MANAGER): R femoral v DVT noted on US 05/08. No pitting edema appreciated on RLE. - Continue Apixaban 5 BID Assessment & Plan (06/14/2022 2:26 PM DEPENDENCY CASE MANAGER): R femoral v DVT noted on US 05/08. No pitting edema appreciated on RLE. - Continue Apixaban 5 BID Assessment & Plan (06/13/2022 4:20 PM DEPENDENCY CASE MANAGER): R femoral v DVT noted on US 05/08. No pitting edema appreciated on RLE. - Continue Apixaban 5 BID Assessment & Plan (06/12/2022 6:16 PM DEPENDENCY CASE MANAGER): R femoral v DVT noted on US 05/08. Treating with apixaban 5 bid No pitting edema appreciated on RLE. F/u Hb 8.5 on anticoagulation. Billing statement Personally reviewed doppler results with RLE DVT and agree with continued plan for apixiban therapy for acute DVT for 3mo duration (triggered). Assessment & Plan (06/11/2022 4:32 PM DEPENDENCY CASE MANAGER): R femoral v DVT noted on US 05/08. Treating with apixaban 5 bid No pitting edema appreciated on RLE. F/u Hb 8.5 on anticoagulation. Billing statement Personally reviewed doppler results with RLE DVT and agree with continued plan for apixiban therapy for acute DVT for 3mo duration (triggered). Assessment & Plan (06/10/2022 3:21 PM DEPENDENCY CASE MANAGER): R femoral v DVT noted on US 05/08. Treating with apixaban 5 bid No pitting edema appreciated on RLE. F/u Hb 8.1 on anticoagulation. Billing statement I have reviewed doppler results with RLE DVT and agree with continued plan for apixiban therapy for acute DVT for 3mo duration (triggered). Assessment & Plan (06/10/2022 9:23 AM DEPENDENCY CASE MANAGER): R femoral v DVT noted on US 05/08. Treating with apixaban 5 bid No pitting edema appreciated on RLE. F/u Hb 8.1 on anticoagulation. Billing statement I have reviewed doppler results with RLE DVT and agree with continuing apixiban therapy for acute DVT for 3mo duration (triggered). Assessment & Plan (06/08/2022 4:01 PM DEPENDENCY CASE MANAGER): R femoral v DVT noted on US 05/08 - cont apixaban 5 bid No pitting edema appreciated. F/u Hb 8.1 on anticoagulation. Billing statement I have reviewed doppler results with RLE DVT and agree with continuing apixiban therapy for acute DVT for 3mo duration (triggered). Assessment & Plan (06/07/2022 10:59 AM DEPENDENCY CASE MANAGER): - noted on US 05/08 - cont apixaban 5 bid No pitting edema appreciated. Billing statement I have reviewed doppler results with RLE DVT and agree with continuing apixiban therapy for acute DVT for 3mo duration (triggered). Assessment & Plan (06/06/2022 6:28 PM DEPENDENCY CASE MANAGER): - noted on US 05/08 - cont apixaban 5 bid No pitting edema appreciated. Billing statement I have reviewed doppler results with RLE DVT and agree with continuing apixiban therapy for acute DVT. Assessment & Plan (06/05/2022 2:01 PM DEPENDENCY CASE MANAGER): - noted on 05/08 - cont apixaban 5 bid Assessment & Plan (06/04/2022 11:09 AM DEPENDENCY CASE MANAGER): - noted on 05/08 - cont apixaban 5 bid Assessment & Plan (06/03/2022 2:57 PM DEPENDENCY CASE MANAGER): - noted on 05/08 - cont apixaban 5 bid Assessment & Plan (06/02/2022 2:26 PM DEPENDENCY CASE MANAGER): - noted on 05/08 - cont apixaban 5 bid Assessment & Plan (06/01/2022 2:18 PM DEPENDENCY CASE MANAGER): - noted on 05/08 - cont apixaban 5 bid Assessment & Plan (05/31/2022 2:57 PM DEPENDENCY CASE MANAGER): - noted on 05/08 - cont apixaban 5 bid Assessment & Plan (05/30/2022 2:04 PM DEPENDENCY CASE MANAGER): - noted on US 05/08 - cont apixaban 5 bid Goals of care, counseling/discussion 05/27/2022 03/18/2023 Assessment & Plan (07/14/2022 12:11 PM CDT): Multiple discussions throughout prolonged course, present goal is short term SNF placement w/ eventual goal of returning home. - Consulted palliative care for assistance in long-term goals. Much appreciated. Assessment & Plan (06/26/2022 5:14 PM CDT): Poor prognosis for most of hospitalization with severe encephalopathy. Was not following commands with behavioral issues that prevented patient from going SNF as skilled (insurance will not cover SNF if he is unable to skill for rehab, which requires following commands). Awaited family decision on facility for fpc care at SNF (vs [facility] with private duty, which family declines). CM [...] plans. 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 Much appreciated. Assessment & Plan (06/25/2022 10:21 AM CDT): Poor prognosis. Really not following commands and has behavioral issues that are preventing patient from going SNF as skilled (insurance will not cover SNF if he is unable to skill for rehab, which requires following commands). Awaiting family decision on facility for fpc care at SNF (vs [facility] with private duty, which family declines). CM following and spoke with in f/u 06/21, 06/22, 06/23. Remains full code. Concern for recurrent aspiration events despite tube feeds and ongoing lack of progress seen in mental status. Anticipate family meeting once MRI results obtained to firm up DC plans. 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 Much appreciated. Assessment & Plan (06/24/2022 5:05 PM DEPENDENCY CASE MANAGER): Poor prognosis. Really not following commands and has behavioral issues that are preventing patient from going SNF as skilled (insurance will not cover SNF if he is unable to skill for rehab, which requires following commands). Awaiting family decision on facility for fpc care at SNF (vs [facility] with private duty, which family declines). CM following and spoke with in f/u 06/21, 06/22, 06/23. Remains full code. Concern for recurrent aspiration events despite tube feeds and ongoing lack of progress seen in mental status. Anticipate family meeting once MRI results obtained to firm up DC plans. Consulted palliative care for assistance in long-term goals. Much appreciated. Assessment & Plan (06/23/2022 3:57 PM DEPENDENCY CASE MANAGER): Really not following commands and has behavioral issues that are preventing patient from going SNF as skilled (insurance will not cover SNF if he is unable to skill for rehab, which requires following commands). Awaiting family decision on facility for fpc care at SNF (vs [facility] with private duty, which family declines). CM following and spoke with in f/u 06/21, 06/22. Remains full code. Concern for recurrent aspiration events despite tube feeds and ongoing lack of progress seen in mental status. Anticipate family meeting once MRI results obtained to firm up DC plans. Consulted palliative care for assistance in long-term goals. Much appreciated. Assessment & Plan (06/22/2022 4:13 PM DEPENDENCY CASE MANAGER): Really not following commands and has behavioral issues that are preventing patient from going SNF (insurance will not cover SNF if he is unable to skill for rehab, which requires following commands). Looking at fpc care at SNF as OP (vs [facility] with private duty, family declines). CM following and spoke with in f/u 06/21. Remains full code. Concern for recurrent aspiration events despite tube feeds and ongoing lack of progress seen in mental status. Anticipate family meeting once MRI results obtained to firm up DC plans. 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 Assessment & Plan (06/21/2022 3:26 PM DEPENDENCY CASE MANAGER): Really not following commands and has behavioral issues that are preventing patient from going SNF (insurance will not cover SNF if he is unable to skill for rehab, which requires following commands). Looking at fpc care at SNF as OP vs [facility] with private duty. CM following and spoke with in f/u 06/21. Remains full code. Anticipate family meeting once MRI results obtained to firm up DC plans. Consider palliative care involvement. Assessment & Plan (06/20/2022 6:11 PM DEPENDENCY CASE MANAGER): Really not following commands and has behavioral issues that are preventing patient from going SNF (insurance will not cover SNF if he is unable to skill for rehab, which requires following commands). CM following and spoke with in f/u 06/21. Remains full code. Assessment & Plan (06/16/2022 11:58 AM DEPENDENCY CASE MANAGER): Multiple discussions with from prior teams (Dr. Barksdale and Dr. Marley) > cont supportive treatments with goal of improvement of encephalopathy and d/c to SNF; remains Full Code. - Spouse, Normal, willing to accept MRI after today's discussion. - Anticipate d/c to SNF, however not medically ready yet. Assessment & Plan (06/15/2022 1:22 PM DEPENDENCY CASE MANAGER): Multiple discussions with from prior teams (Dr. Barksdale and Dr. Marley) > cont supportive treatments with goal of improvement of encephalopathy and d/c to SNF; remains Full Code. - Spouse, Normal, willing to accept MRI after today's discussion. - Anticipate d/c to SNF, however not medically ready yet. Assessment & Plan (06/14/2022 2:26 PM DEPENDENCY CASE MANAGER): Multiple discussions with from prior teams (Dr. Barksdale and Dr. Marley) > cont supportive treatments with goal of improvement of encephalopathy and d/c to SNF; remains Full Code. - Spouse, Normal, willing to accept MRI after today's discussion. - Anticipate d/c to SNF, however not medically ready yet. Assessment & Plan (06/13/2022 4:22 PM DEPENDENCY CASE MANAGER): Multiple discussions with from prior teams (Dr. Barksdale and Dr. Marley) > cont supportive treatments with goal of improvement of encephalopathy and d/c to SNF; remains Full Code. - Spouse, Normal, willing to accept MRI after today's discussion. - Anticipate d/c to SNF, however not medically ready yet. Assessment & Plan (06/12/2022 6:19 PM DEPENDENCY CASE MANAGER): multiple discussions with , several times [...] no beds until late in week ([facility], [facility]). Needs private room for nebulizer use (??), as unable to use MDIs. Additional updated 06/11 with same plan for full code and no MRI. Assessment & Plan (06/11/2022 4:34 PM DEPENDENCY CASE MANAGER): multiple discussions with , several times [...] no beds until late in week ([facility], [facility]). Needs private room for nebulizer use, as unable to use MDIs. Additional updated 06/11 with same plan for full code and no MRI. Assessment & Plan (06/10/2022 3:25 PM DEPENDENCY CASE MANAGER): multiple discussions with , several times [...] no beds until late in week ([facility], [facility]). Needs private room for nebulizer use, as unable to use MDIs. Assessment & Plan (06/10/2022 9:26 AM DEPENDENCY CASE MANAGER): multiple discussions with , several times [...] no beds until late in week ([facility], [facility]). Needs private room for nebulizer use, as unable to use MDIs. Assessment & Plan (06/08/2022 4:05 PM DEPENDENCY CASE MANAGER): multiple discussions with , several times [...] no beds until late in week ([facility], [facility]). Needs private room for Covid, nebulizer use. Assessment & Plan (06/07/2022 11:04 AM DEPENDENCY CASE MANAGER): multiple discussions with , several times [...] no beds until late in week ([facility], [facility]) Assessment & Plan (06/06/2022 6:38 PM DEPENDENCY CASE MANAGER): multiple discussions with , several times [...] no beds until late in week ([facility]) Assessment & Plan (06/05/2022 2:00 PM DEPENDENCY CASE MANAGER): - as above again d/w'd multiple [...] no beds until late in week ([facility]) Assessment & Plan (06/04/2022 11:09 AM DEPENDENCY CASE MANAGER): - as above again d/w'd 05/30 [...] no beds until late in week ([facility]) Assessment & Plan (06/03/2022 2:58 PM DEPENDENCY CASE MANAGER): - as above again d/w'd 05/30 [...] no beds until late in week ([facility]) Assessment & Plan (06/02/2022 2:26 PM DEPENDENCY CASE MANAGER): - as above again d/w'd 05/30 and she reiterated similar goals as to Dr. Marley's note from 05/29 > cont supportive treatments with goal of improvement of encephalopathy and d/c to SNF; remains FC; does not want to pursue MRI for now at least Assessment & Plan (06/01/2022 2:18 PM DEPENDENCY CASE MANAGER): - as above again d/w'd 05/30 and she reiterated similar goals as to Dr. Marley's note from 05/29 > cont supportive treatments with goal of improvement of encephalopathy and d/c to SNF; remains FC; does not want to pursue MRI for now at least Assessment & Plan (05/31/2022 2:57 PM DEPENDENCY CASE MANAGER): - as above again d/w'd 05/30 and she reiterated similar goals as to Dr. Marley's note from 05/29 > cont supportive treatments with goal of improvement of encephalopathy and d/c to SNF; remains FC; does not want to pursue MRI for now at least Assessment & Plan (05/30/2022 2:03 PM DEPENDENCY CASE MANAGER): - as above again d/w'd and she reiterated similar goals as to Dr. Marley's note from 05/29 > cont supportive treatments with goal of improvement of encephalopathy and d/c to SNF; remains FC; does not want to pursue MRI for now at least Assessment & Plan (05/29/2022 3:14 PM DEPENDENCY CASE MANAGER): Ongoing discussions with patient's that I [...] Code Assessment & Plan (05/28/2022 1:54 PM DEPENDENCY CASE MANAGER): Discussed with patient's yesterday and today [...] discussions. Assessment & Plan (05/27/2022 3:55 PM DEPENDENCY CASE MANAGER): Discussed with patient's yesterday and today [...] HHC & private duty, agreeable to pursing [facility] [place]. [place] requests SNF with therapy. Ongoing CM//SW discussions without decision on facility, ongoing encouragement. 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 Palliative care consulted 06/22 & appreciated. Discussed above at length with son 11 at bedside, Ay[place] daily when present (most days). Marked improvement with resolution of hypercalcemia. Able to tolerate up to chair daily. Plan family meeting once MRI results obtained. Plan PT/OT reevaluation and SNF at [place]. List provided by CM. Await family decision. [...] help). However recurrent hypernatremia with TF held 3/8 and increased vocalizations. Managing mobility limited by [...] HH & private duty, agreeable to pursing [facility] SN[facility] at [place]. [place] requests SNF with therapy. Ongoing CM//SW discussions without decision on facility, ongoing encouragement. 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 Palliative care consulted 3/9 & appreciated. Discussed above at length with son 06/24 at bedside. Plan family meeting once MRI results obtained. Plan [facility] SNF at [place]. List provided by CM. Await family decision. Assessment & Plan (06/24/2022 5:02 PM DEPENDENCY CASE MANAGER): Likely multifactorial. Initially thought to be [...] HH & private duty, agreeable to pursing [facility] SN[facility] at [place]. [place] requests SNF with therapy. Ongoing CM//SW discussions without decision on facility, ongoing encouragement. 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 Palliative care consulted 06/22 & appreciated. Discussed above at length with son 06/24 at bedside. Plan family meeting once MRI results obtained. Plan SNF at [place]. List provided by CM. Await family decision. Assessment & Plan (06/23/2022 3:47 PM DEPENDENCY CASE MANAGER): Likely multifactorial. Initially thought to be [...] home with HH & private duty vs [facility] SN[facility] at [place]. [place] requests SNF with therapy. Ongoing CM//SW discussions without decision. Palliative care consulted 06/22. Anticipate son to arrive 06/24. Plan family meeting once MRI results obtained. Assessment & Plan (06/22/2022 4:09 PM DEPENDENCY CASE MANAGER): Likely multifactorial. Thought to be acute [...] home with HH & private duty vs [facility] [place]. [place] requests SNF with therapy. Ongoing CM//SW discussions without decision. Palliative care consulted 06/22. Plan family meeting once MRI results obtained. Assessment & Plan (06/21/2022 3:22 PM DEPENDENCY CASE MANAGER): Likely multifactorial. Thought to be acute [...] rehab due to encephalopathy, plan home with [facility] vs [facility] SN[facility] at [place]. Ongoing CM//SW discussions for dispo planning. Will attempt family meeting once MRI results obtained. Assessment & Plan (06/20/2022 6:08 PM DEPENDENCY CASE MANAGER): Likely multifactorial. Thought to be acute [...] restraints). Assessment & Plan (06/16/2022 11:57 AM DEPENDENCY CASE MANAGER): Likely multifactorial. Thought to be acute [...] oxycodone Assessment & Plan (06/15/2022 1:22 PM DEPENDENCY CASE MANAGER): Likely multifactorial. Thought to be acute [...] precautions. Assessment & Plan (06/14/2022 2:26 PM DEPENDENCY CASE MANAGER): Likely multifactorial. Thought to be acute [...] precautions. Assessment & Plan (06/13/2022 4:10 PM DEPENDENCY CASE MANAGER): Likely multifactorial. Thought to be acute [...] precautions. Assessment & Plan (06/12/2022 6:16 PM DEPENDENCY CASE MANAGER): Likely multifactorial ISO initial delirium and [...] 06/12 Assessment & Plan (06/11/2022 4:30 PM DEPENDENCY CASE MANAGER): Likely multifactorial ISO initial delirium and [...] available. Assessment & Plan (06/10/2022 3:21 PM DEPENDENCY CASE MANAGER): Likely multifactorial ISO delirium and toxic-metabolic [...] available. Assessment & Plan (06/10/2022 9:22 AM DEPENDENCY CASE MANAGER): Likely multifactorial ISO delirium and toxic-metabolic [...] covid diagnosis, but unlikely given predating symptoms. [facility] 06/08 advanced to regular diet with nectar [...] ADAT. Assessment & Plan (06/08/2022 4:00 PM DEPENDENCY CASE MANAGER): Likely multifactorial ISO delirium and toxic-metabolic [...] covid diagnosis, but unlikely given predating symptoms. [facility] 06/08 advanced to regular diet with nectar [...] goals/adequacy. Assessment & Plan (06/07/2022 10:58 AM DEPENDENCY CASE MANAGER): Likely multifactorial ISO delirium and toxic-metabolic [...] seroquel) Assessment & Plan (06/06/2022 6:37 PM DEPENDENCY CASE MANAGER): Likely multifactorial ISO delirium and toxic-metabolic [...] status. Assessment & Plan (06/05/2022 1:56 PM DEPENDENCY CASE MANAGER): - Likely multifactorial ISO delirium and [...] 05/28) Assessment & Plan (06/04/2022 10:59 AM DEPENDENCY CASE MANAGER): - Likely multifactorial ISO delirium and [...] 05/28) Assessment & Plan (06/03/2022 2:55 PM DEPENDENCY CASE MANAGER): - Likely multifactorial ISO delirium and [...] 05/28) Assessment & Plan (06/02/2022 2:24 PM DEPENDENCY CASE MANAGER): - Likely multifactorial ISO delirium and [...] 05/28) Assessment & Plan (06/01/2022 2:17 PM DEPENDENCY CASE MANAGER): - Likely multifactorial ISO delirium and [...] 05/28) Assessment & Plan (05/31/2022 2:55 PM DEPENDENCY CASE MANAGER): - Likely multifactorial ISO delirium and [...] 05/28) Assessment & Plan (05/30/2022 1:58 PM DEPENDENCY CASE MANAGER): - Likely multifactorial ISO delirium and [...] 05/28) Assessment & Plan (05/29/2022 3:12 PM DEPENDENCY CASE MANAGER): Likely multifactorial ISO delirium and toxic-metabolic [...] 05/28) Assessment & Plan (05/28/2022 1:53 PM DEPENDENCY CASE MANAGER): Likely multifactorial ISO delirium and toxic-metabolic [...] anesthesia, and brain MRI seems unlikely to international exchange coordinator. -Recent ammonia, tsh, lactate, HIV, ABG are [...] trazoldone Assessment & Plan (05/27/2022 3:51 PM DEPENDENCY CASE MANAGER): Likely multifactorial ISO delirium and toxic-metabolic [...] anesthesia, and brain MRI seems unlikely to international exchange coordinator. -Recent ammonia, tsh, lactate, HIV, ABG are negative or normal -continue management of hypernatremia (now resolved) and hypercalcemia -PEG tube for feeding -appreciate neurology recommendations -May be developing new baseline, or may be very slow to recover from this prolonged delirium/hospitalization; seemed slightly improved this am Assessment & Plan (05/26/2022 1:25 PM DEPENDENCY CASE MANAGER): Likely multifactorial ISO delirium and toxic-metabolic [...] (04/03/2022): Added automatically from request for surgery [id number] Assessment & Plan (06/17/2022 5:35 PM DEPENDENCY CASE MANAGER): In setting of shock, PNA, pneumothorax, and AMS in post-op setting. Tracheostomy placed in ICU and decannulated 05/13, did well on 2L, weaned to RA. Remains stable. Small anterior cervical os with tiny air leak, occlusion dressing placed. Pt unable to stent when speaking due to encephalopathy. Assessment & Plan (06/16/2022 11:56 AM DEPENDENCY CASE MANAGER): In setting of shock, PNA, pneumothorax, and AMS in post-op setting. Tracheostomy placed in ICU and decannulated 05/13, did well on 2L, weaned to RA. Remains stable. Small anterior cervical os with tiny air leak, occlusion dressing placed. Pt unable to stent when speaking due to encephalopathy. Assessment & Plan (06/15/2022 1:20 PM DEPENDENCY CASE MANAGER): In setting of shock, PNA, pneumothorax, and AMS in post-op setting. Tracheostomy placed in ICU and decannulated 05/13, did well on 2L, weaned to RA. Remains stable. Small anterior cervical os with tiny air leak, occlusion dressing placed. Pt unable to stent when speaking due to encephalopathy. Assessment & Plan (06/14/2022 2:20 PM DEPENDENCY CASE MANAGER): In setting of shock, PNA, pneumothorax, and AMS in post-op setting. Tracheostomy placed in ICU and decannulated 05/13, did well on 2L, weaned to RA. Remains stable. Small anterior cervical os with tiny air leak, occlusion dressing placed. Pt unable to stent when speaking due to encephalopathy. Assessment & Plan (06/13/2022 3:58 PM DEPENDENCY CASE MANAGER): In setting of shock, PNA, pneumothorax, and AMS in post-op setting. Tracheostomy placed in ICU and decannulated 05/13, did well on 2L, weaned to RA. Remains stable. Small anterior cervical os with tiny air leak, occlusion dressing placed. Pt unable to stent when speaking due to encephalopathy. Assessment & Plan (06/12/2022 6:20 PM DEPENDENCY CASE MANAGER): In setting of shock, PNA, pneumothorax, and AMS in post-op setting. Tracheostomy placed in ICU and decannulated 05/13, now doing well on 2L, weaned to RA. Remains stable. Small anterior cervical os with tiny air leak, occlusion dressing placed. Pt unable to stent when speaking due to encephalopathy. Assessment & Plan (06/10/2022 3:30 PM DEPENDENCY CASE MANAGER): In setting of shock, PNA, pneumothorax, and AMS in post-op setting. Tracheostomy placed in ICU and decannulated 05/13, now doing well on 2L, weaned to RA. Remains stable. Small anterior cervical os with tiny air leak, occlusion dressing placed. Pt unable to stent when speaking due to encephalopathy. Assessment & Plan (06/10/2022 9:27 AM DEPENDENCY CASE MANAGER): In setting of shock, PNA, pneumothorax, and AMS in post-op setting. Tracheostomy placed in ICU and decannulated 05/13, now doing well on 2L, wean to RA Assessment & Plan (06/08/2022 4:11 PM DEPENDENCY CASE MANAGER): In setting of shock, PNA, pneumothorax, and AMS in post-op setting. Tracheostomy placed in ICU and decannulated 05/13, now doing well on 2L, wean to RA Assessment & Plan (05/30/2022 2:04 PM DEPENDENCY CASE MANAGER): - In setting of shock, PNA, pneumothorax, and AMS in post-op setting. Tracheostomy placed in ICU and decannulated 05/13, now doing well on RA Assessment & Plan (05/29/2022 3:13 PM DEPENDENCY CASE MANAGER): - In setting of shock, PNA, pneumothorax, and AMS in post-op setting. Tracheostomy placed in ICU and decannulated 05/13, now doing well on RA Assessment & Plan (05/28/2022 1:53 PM DEPENDENCY CASE MANAGER): - In setting of shock, PNA, pneumothorax, and AMS in post-op setting. Tracheostomy placed in ICU and decannulated 05/13, now doing well on RA Assessment & Plan (05/27/2022 3:53 PM DEPENDENCY CASE MANAGER): - In setting of shock, PNA, pneumothorax, and AMS in post-op setting. Tracheostomy placed in ICU and decannulated 05/13, now doing well on RA Assessment & Plan (05/25/2022 3:17 PM DEPENDENCY CASE MANAGER): - In setting of shock, PNA, pneumothorax, and AMS in post-op setting. Tracheostomy placed in ICU and decannulated 05/13, now doing well on RA Assessment & Plan (04/05/2022 12:16 PM DEPENDENCY CASE MANAGER): Ravinder Chapman is a 76 y.o. male with a PMHx of cervical myelopathy, COPD/AMAYA (CPAP at home), and obesity initially admitted to the [facility] spine floor s/p C3-7 [...] saturation. Assessment & Plan (04/05/2021 5:48 PM DEPENDENCY CASE MANAGER): Patient reports no significant vertigo, but [...] 07/19/2020 Assessment & Plan (05/06/2020 12:58 PM DEPENDENCY CASE MANAGER): D- dimer is 815. Slightly elevated as age adjusted normal value for this patient is 730. Possibly secondary to current inflammatory process given acute colitis. Do not suspect PE or DVT. Colitis 05/05/2020 07/19/2020 Assessment & Plan (05/06/2020 12:54 PM DEPENDENCY CASE MANAGER): Presented with abdominalo pain X 2 [...] 09/22/2019 Assessment & Plan (03/04/2019 2:55 PM DEPENDENCY CASE MANAGER): Family hx of breast ca. Will [...] weight-bearing; Assessment & Plan (04/29/2021 11:06 AM DEPENDENCY CASE MANAGER): Stable, patient has been working on [...] 01/14/2018 Assessment & Plan (04/10/2017 9:35 AM DEPENDENCY CASE MANAGER): Will treat with omnicef. Overall he's [...] (07/15/2022 10:46 AM CDT): Severe GIN/ATN requiring [employer] in setting of critical illness. Making reasonable amount of urine, creatinine stabilized off dialysis. Tunneled line removed 05/25. Cr appears to have improved to 1.2-1.3. GIN resolved. 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 -Continue to avoid nephrotoxins - encourage PO intake Assessment & Plan (06/26/2022 5:10 PM CDT): Severe GIN/ATN requiring [employer] in setting of critical illness. Making reasonable amount of urine, creatinine stabilized off dialysis. Tunneled line removed 05/25. Cr appears to be plateaued <2. GIN resolved. 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 -Continue to avoid nephrotoxins -Cont intermittent IVF as needed for hypernatremia, as TF FW flushes doesn't seem to help as much, but further advanced. Compliance Officer reconsulted to address volume of flushes, water needs. -Volume status on exam appears good. Tx hypercalcemia as elsewhere, iCr 1.90 with holding of TF for recurrent vomiting. Assessment & Plan (06/25/2022 10:19 AM CDT): Severe GIN/ATN requiring [employer] in setting of critical illness. Making reasonable amount of urine, creatinine stabilized off dialysis. Tunneled line removed 05/25. Cr appears to be plateaued <2. GIN resolved. 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 -Continue to avoid nephrotoxins -Cont intermittent IVF as needed for hypernatremia, as TF FW flushes doesn't seem to help as much, but further advanced. Compliance Officer reconsulted to address volume of flushes, water needs. -Volume status on exam appears good. Tx hypercalcemia as elsewhere, improvign trend. Assessment & Plan (06/24/2022 5:03 PM DEPENDENCY CASE MANAGER): Severe GIN/ATN requiring [employer] in setting of critical illness. Making reasonable amount of urine, creatinine stabilized off dialysis. Tunneled line removed 05/25. Cr appears to be plateaued <2. GIN resolved. 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 -Continue to avoid nephrotoxins -Cont intermittent IVF as needed for hypernatremia, as TF FW flushes doesn't seem to help as much. Compliance Officer reconsulted to address volume of flushes, water needs. -Volume status on exam appears good. Tx hypercalcemia as elsewhere. Assessment & Plan (06/23/2022 3:48 PM DEPENDENCY CASE MANAGER): Severe GIN/ATN requiring [employer] in setting of critical illness. Making reasonable [...] elsewhere. Assessment & Plan (06/22/2022 4:08 PM DEPENDENCY CASE MANAGER): Severe GIN/ATN requiring [employer] in setting of critical illness. Making reasonable amount of urine, creatinine stabilized off dialysis. Tunneled line removed 05/25. Cr appears to be plateaued <2. GIN resolved. 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 -Continue to avoid nephrotoxins -Cont intermittent IVF as needed for hypernatremia, as TF FW flushes doesn't seem to help as much. Tx hypercalcemia as elsewhere. Assessment & Plan (06/21/2022 3:23 PM DEPENDENCY CASE MANAGER): Severe GIN/ATN requiring [employer] in setting of critical illness. Making reasonable amount of urine, creatinine stabilizing off dialysis. Tunneled line removed 05/25. Cr appears to be plateaued <2. GIN resolved. 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 -Continue to avoid nephrotoxins -Cont intermittent D5w IV as needed for hypernatremia, as TF FW flushes doesn't seem to help as much. Assessment & Plan (06/20/2022 6:09 PM DEPENDENCY CASE MANAGER): Severe GIN/ATN requiring [employer] in setting of critical illness. Making reasonable amount of urine, creatinine stabilizing off dialysis. Tunneled line removed 2. Cr appears to be plateaued <2. GIN resolved. 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 -Continue to avoid nephrotoxins -Cont NS IV as needed for hypernatremia, -TF FW flushes doesn't seem to help as much. Assessment & Plan (06/16/2022 11:56 AM DEPENDENCY CASE MANAGER): Severe GIN/ATN requiring [employer] in setting of critical illness. Making reasonable amount of urine, creatinine stabilizing off dialysis. Tunneled line removed 2. Cr appears to be plateaued <2. GIN resolved. -Continue to avoid nephrotoxins Assessment & Plan (06/15/2022 1:19 PM DEPENDENCY CASE MANAGER): Severe GIN/ATN requiring [employer] in setting of critical illness. Making reasonable amount of urine, creatinine stabilizing off dialysis. Tunneled line removed 2. Cr appears to be plateaued <2. GIN resolved. -Continue to avoid nephrotoxins Assessment & Plan (06/14/2022 2:19 PM DEPENDENCY CASE MANAGER): Severe GIN/ATN requiring [employer] in setting of critical illness. Making reasonable amount of urine, creatinine stabilizing off dialysis. Tunneled line removed 2. Cr appears to be plateaued <2. GIN resolved. -Continue to avoid nephrotoxins Assessment & Plan (06/13/2022 3:57 PM DEPENDENCY CASE MANAGER): Severe GIN/ATN requiring [employer] in setting of critical illness. Making reasonable amount of urine, creatinine stabilizing off dialysis. Tunneled line removed 2/9. Cr appears to be plateaued <2. GIN resolved. -Continue to avoid nephrotoxins Assessment & Plan (06/12/2022 6:17 PM DEPENDENCY CASE MANAGER): Severe GIN/ATN requiring [employer] in setting of critical illness. Making reasonable [...] PCP Assessment & Plan (06/11/2022 4:33 PM DEPENDENCY CASE MANAGER): Severe GIN/ATN requiring [employer] in setting of critical illness. Making reasonable [...] PCP Assessment & Plan (06/10/2022 3:23 PM DEPENDENCY CASE MANAGER): Severe GIN/ATN requiring [employer] in setting of critical illness. Making reasonable [...] exams. Assessment & Plan (06/10/2022 9:23 AM DEPENDENCY CASE MANAGER): Severe GIN/ATN requiring [employer] in setting of critical illness. Making reasonable [...] exams. Assessment & Plan (06/08/2022 4:02 PM DEPENDENCY CASE MANAGER): Severe GIN/ATN requiring [employer] in setting of critical illness. Making reasonable [...] exams. Assessment & Plan (06/07/2022 11:00 AM DEPENDENCY CASE MANAGER): Severe GIN/ATN requiring [employer] in setting of critical illness. Making reasonable [...] exams. Assessment & Plan (06/06/2022 6:29 PM DEPENDENCY CASE MANAGER): - Severe GIN/ATN requiring [employer] in setting of critical illness. Making reasonable [...] exams. Assessment & Plan (06/05/2022 2:00 PM DEPENDENCY CASE MANAGER): - Severe GIN/ATN requiring [employer] in setting of critical illness. Making reasonable amount of urine, creatinine stabilizing off dialysis - tunneled line removed 2/9 - cont to avoid nephrotoxins - Cr appears to be leveling off around 2 thus far Assessment & Plan (06/04/2022 11:03 AM DEPENDENCY CASE MANAGER): - Severe GIN/ATN requiring [employer] in setting of critical illness. Making reasonable amount of urine, creatinine stabilizing off dialysis - tunneled line removed 2/9 - cont to avoid nephrotoxins Assessment & Plan (06/03/2022 2:56 PM DEPENDENCY CASE MANAGER): - Severe GIN/ATN requiring [employer] in setting of critical illness. Making reasonable amount of urine, creatinine stabilizing off dialysis - tunneled line removed 2/9 - cont to avoid nephrotoxins Assessment & Plan (06/02/2022 2:25 PM DEPENDENCY CASE MANAGER): - Severe GIN/ATN requiring [employer] in setting of critical illness. Making reasonable amount of urine, creatinine stabilizing off dialysis - tunneled line removed 2/9 - cont to avoid nephrotoxins Assessment & Plan (06/01/2022 2:18 PM DEPENDENCY CASE MANAGER): - Severe GIN/ATN requiring [employer] in setting of critical illness. Making reasonable amount of urine, creatinine stabilizing off dialysis - tunneled line removed 2/9 - cont to avoid nephrotoxins Assessment & Plan (05/31/2022 2:57 PM DEPENDENCY CASE MANAGER): - Severe GIN/ATN requiring [employer] in setting of critical illness. Making reasonable amount of urine, creatinine stabilizing off dialysis - tunneled line removed 2/9 - cont to avoid nephrotoxins Assessment & Plan (05/30/2022 2:02 PM DEPENDENCY CASE MANAGER): - Severe GIN/ATN requiring [employer] in setting of critical illness. Making reasonable amount of urine, creatinine stabilizing off dialysis - tunneled line removed 2/9 - cont to avoid nephrotoxins Assessment & Plan (05/29/2022 3:13 PM DEPENDENCY CASE MANAGER): - Severe GIN/ATN requiring [employer] in setting of critical illness. Making good urine, creatinine stable off dialysis - tunneled line removed 2/9 - cont to avoid nephrotoxins Assessment & Plan (05/28/2022 1:53 PM DEPENDENCY CASE MANAGER): - Severe GIN/ATN requiring [employer] in setting of critical illness. Making good urine, creatinine stable off dialysis - tunneled line removed 2/9 - cont to avoid nephrotoxins Assessment & Plan (05/27/2022 3:52 PM DEPENDENCY CASE MANAGER): - Severe GIN/ATN requiring [employer] in setting of critical illness. Making good urine, creatinine slowly improving off dialysis - tunneled line removed 05/25 - cont to avoid nephrotoxins Assessment & Plan (05/26/2022 1:17 PM DEPENDENCY CASE MANAGER): - Severe GIN/ATN requiring [employer] in setting of critical illness. Making good urine, creatinine has stabilized off dialysis - tunneled line removed 05/25 - cont to avoid nephrotoxins Encounters Date Type Department Care Team Description 01/01/2025 Results Follow-Up [facility] [address] [id number] Nick Almanzar MD Vitamin D 25 hydroxy, Hepatitis B surface antibody (immune status) Blood, Hepatitis B core antibody, total Blood, Additional followed-up results: 6 12/31/2024 12:00 PM CDT Lab [facility] [address] [place] [id number] Vitamin D deficiency, unspecified; Stage 3b chronic kidney disease (CKD) (HCC); Need for hepatitis B screening test; Mixed hyperlipidemia 12/31/2024 11:00 AM CDT Office Visit [facility] [address] [phone] Nick Almanzar MD Medicare annual wellness visit, subsequent (Primary Dx); Need for hepatitis B screening test; Vitamin D deficiency, unspecified; Mixed hyperlipidemia; Moderate episode of recurrent major depressive disorder (HCC); Panlobular emphysema (HCC); Stage 3b chronic kidney disease (CKD) (HCC); Essential hypertension 12/17/2024 Orders Only [facility] [address] [phone] Nick Almanzar MD 12/05/2024 Telephone [facility] [address] [phone] Nick Almanzar MD Med Refill 12/05/2024 [facility] ED Outreach [facility] Organization [address] [place] [id number] Birdie Vigil MA 12/05/2024 Results Follow-Up [facility] [address] [place] [id number] Lisbet Apodaca NP Aerobic and anaerobic culture and gram stain Wound Toe, fourth, right 12/04/2024 4:36 PM CDT - 12/04/2024 7:16 PM CDT Emergency [facility] Emergency Department [address] [place] [address] Cellulitis of other specified site (Primary Dx) Discharge Disposition: Discharge to home or self care 12/04/2024 3:33 PM CDT - 12/04/2024 11:59 PM CDT Hospital Encounter [address] [address] Infection of toe Discharge Disposition: Discharge to home or self care 12/04/2024 2:45 PM CDT Office Visit [facility] at [address] [place] [phone] Lisbet Apodaca NP Infection of toe (Primary Dx) 10/28/2024 Results Follow-Up [facility] of [address] [phone] Nick Almanzar MD Colonoscopy 10/02/2024 Telephone [facility] Accountable Care Organization [address] [place] [id number] Catarina Cuevas MA Chart Review (Med adherence) from Last 3 Months Immunizations Immunization Administration Dates Next Due Influenza, Quad, Adjuvantate d, Intramuscular 12/26/2021 Influenza, Quadrivalent, Hig h Dose, Preservative Free, Intrr 01/17/2021,02/05/2020 Influenza, Split 02/26/2013 Influenza, Trivalent, High D ose, Split, Preservative Free, Intramuscular 01/09/2024,03/04/2019,03/12/2018 Influenza, Trivalent, IM (MDV) 02/26/2013 Influenza, Unspecified 01/08/2024,2022,12/20/2022(Defer red: Patient Refused),12/15/2020(Deferred: Patient Refused),12/15/2020(Deferred: Patient Refused),12/16/2019(Deferred: Patient Refused),12/16/2019(Deferred: Patient Refused),03/12/2018,03/22/2017(Deferre d: Patient Refused) Pfizer SARS-CoV-2 Monovalent Vaccination (12+ Yrs) PURPLE 12/26/2021,08/18/2021,01/26/2021 Pneumococcal Conjugate PCV 13 01/06/2019 Pneumococcal Polysaccharide PPV23 11/30/2019,04/2011 RSV Vaccine, Pref, Recombina nt, Subunit, Adjuvanted, PF, IM (Arexvy) 04/10/2023 Tdap 03/12/2018 ZOSTER Recombinant 12/25/2023,04/10/2023 Surgical History Surgery Date Site/Laterality Comments CARPAL [...] replacement three times Brother Alzheimer's disease Father Wm.Dyllan Memory loss Father Wm.Dyllan Stroke Father Wm.Dyllan Stroke; Breast cancer Mother Kim Cancer Mother [...] materials from doctor or pharmacy Sometimes 10/09/2022 [facility] Utilities Answer Date Recorded In the past 12 months has e [employer], gas, oil, or water Fluid-1 threatened to shut off services in your [...] often do you attend chur ch or congregational services? 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 Sexual Orientation Straight 12/22/2020 11 :36 AM CDT Obstetrics History Last Filed Vital Signs Vital Sign Reading Time Taken Comments Blood Pressure 126/78 12/31/2024 11:03 AM CDT Pulse 52 12/31/2024 11:03 AM CDT Temperature 36.6 C (97.8 F) 12/31/2024 11:03 AM CDT Respiratory Rate 20 12/31/2024 11:03 AM CDT Oxygen Saturation 97% 12/31/2024 11:03 AM CDT Inhaled Oxygen Concentration - - Weight 93.4 kg (206 lb) 12/31/2024 11:03 AM CDT Height 170.2 cm (5' 7) 12/31/2024 11:03 AM CDT Body Mass Index 32.26 12/31/2024 11:03 AM CDT Plan of Treatment Health Maintenance Due Date Last Done Comments Covid-19 Vaccine (2024-05 6 season) 2024 12/26/2021, 12/26/2021, 08/18/2021, Additional history exists Influenza Vaccine (#1) 2024 , 01/08/2024, 02/16/2023, Additional history exists Colon Cancer Screening-FIT 09/29/202509/29, 03/28/2021, 03/28/2021, Additional history exists Colon Cancer Screening-FOBT 09/29/202509/14, 03/28/2021, 03/28/2021, Additional history exists Depression Screening 12/31/2025 12/31/2024, 12/27/2023, 06/16/2023, Additional history exists Fall Risk Assessment 12/31/2025 12/31/2024, 02/27/2024, 12/27/2023, Additional history exists Well Visit 65+ 12/31/2025 12/31/2024, 09/2022, 12/14/2021, Additional history exists Colon Cancer Screening-DNA Stool 09/30/2027 09/29/2024, 03/28/2021, 03/28/2021, Additional history exists DTaP/Tdap/Td Vaccine (2 - Td or Tdap) 03/12/2028 03/12/2018 Colon Cancer Screening-CT Colonography 09/29/2029 09/29/2024, 03/28/2021, 03/28/2021, Additional history exists Colon Cancer Screening-Colonoscopy 09/29/2029 09/29/2024, 03/28/2021, 03/28/2021, Additional history exists Colon Cancer Screening-Sigmoidoscopy 09/29/2029 09/29/2024, 03/28/2021, 03/28/2021, Additional history exists Colorectal Cancer Screening 09/29/2029 Pneumococcal vaccine 65+ Completed 020, 01/06/2019, 04/16/2011 Hepatitis C Screening Completed 01/19/2020 Zoster Vaccine Completed 12/25/2023, 04/10/2023 Abdominal Aortic Aneurysm (A AA) Screen Completed 02/12/2024, 02/21/2023, 06/25/2022, Additional history exists Hepatitis B Screening Completed 12/31/2024 Medical Devices Implanted Type Area Business Development Consultant Device Identifier Shelf Expiration Date Model / Serial / Lot [employer] Device Vascular Closure Femoral Artery Bioabsorbable Dual Method Vascade 6-7fr Collagen [id number] - [id number] Implanted:Qty: 1 on 06/18/2023 by Maria A Seymour MD at [facility] Collagen Right: Common Femoral Artery [employer] 02/07/2025 [id number] / / [id number] Cer[employer] Inc Allograft Bone Putty 2.5cc 700-025 - [id number] Implanted:Qty: 1 on 03/17/2022 by Boogie Casas MD at [facility] Spine Cervical [employer] Inc [id number] 09/13/2024 700-025 / / [id number] Nex[employer] Screw Trelloss-C Sa 3.5x12mm [id number] - [id number] Implanted:Qty: 1 on 03/17/2022 by Boogie Casas MD at [facility] Spine Cervical [employer] [id number] 01/04/2027 [id number] / / [id number] [employer] Spacer Trelloss-C Sa [id number] 6deg [id number] - [id number] Implanted:Qty: 1 on 03/17/2022 by Boogie Casas MD at [facility] Spine Cervical [employer] [id number] 02/10/2025 [id number] / / [id number] [employer] Spacer Trelloss-C Sa [id number] 6deg [id number] - [id number] Implanted:Qty: 1 on 03/17/2022 by Boogie Casas MD at [facility] Spine Cervical [employer] [id number] 01/28/2025 [id number] / / [id number] [employer] Llc Inqu Paste Mix Plus Pediatric Medical Assistant 10cc Bone Graft Hyaluronic Acid Poly [id number] - [id number] Implanted:Qty: 1 on 03/17/2022 by Boogie Casas MD at [facility] Spine Cervical [employer] 08/31/2022 [id number] / / [id number] [employer] Virage 3.5mm 16mm Polyaxial Spine Screw Bone Nonsterile 07.69478.009 - [id number] Implanted:Qty: 7 on 03/17/2022 by Boogie Casas MD at [facility] Spine Cervical [employer] [id number]. 009 / / [employer] Virage 3.5mm 14mm Polyaxial Spine Screw Bone Nonsterile 07.70170.007 - [id number] Implanted:Qty: 2 on 03/17/2022 by Boogie Casas MD at [facility] Spine Cervical [employer] [id number]. [id number] / / [employer] Virage 4mm 20mm Self Tap Polyaxial Spine Screw Bone Titanium Gold 07.41027.056 - [id number] Implanted:Qty: 1 on 03/17/2022 by Boogie Casas MD at [facility] Spine Cervical [employer] 07.17811. 056 / / Prasanna Straight Cocr 3.5mm X 400mm - [id number] Implanted:Qty: 1 on 03/17/2022 by Boogie Casas MD at [facility] Spine Cervical [employer] [id number]. 002 / / [employer] Virage Closure Top Lid Sterilization Nonsterile Disposable Screw 07.88510.001 - [id number] Implanted:Qty: 10 on 03/17/2022 by Boogie Casas MD at [facility] Spine Cervical [employer] 36914. 001 / / Allosource Canpac Nonpurge Frozen Graft 50cc Bone [id number] - [id number] Implanted:Qty: 1 on 03/17/2022 by Boogie Casas MD at [facility] Spine Cervical [employer] 06/23/2026 [id number] / / [id number] [employer] Screw Trelloss-C Sa 3.5x14mm [id number] - [id number] Implanted:Qty: 1 on 03/17/2022 by Boogie Casas MD at [facility] Spine Cervical [employer] [id number] 03/01/2025 [id number] / / [id number] Procedures Procedure Name Priority Date/Time Associated Diagnosis Comments EGFR Routine 12/31/2024 11:57 AM CDT Mixed hyperlipidemia Stage 3b chronic kidney disease (CKD) (HCC) DIFFERENTIAL AUTO Routine 12/31/2024 11: 57 AM CDT Mixed hyperlipidemia Stage 3b chronic kidney disease (CKD) (HCC) LIPID PANEL Routine 12/31/2024 11:57 AM CDT Mixed hyperlipidemia Stage 3b chronic kidney disease (CKD) (HCC) CBC WITH AUTO DIFFERENTIAL Routine 12/31/2024 11:57 AM CDT Mixed hyperlipidemia Stage 3b chronic kidney disease (CKD) (HCC) COMPREHENSIVE METABOLIC PANEL Routine 12/31/2024 11:57 AM CDT Mixed hyperlipidemia Stage 3b chronic kidney disease (CKD) (HCC) VITAMIN D 25 HYDROXY Routine 12/31/2024 11:57 AM CDT Vitamin D deficiency, unspecified Stage 3b chronic kidney disease (CKD) (HCC) HEPATITIS B SURFACE ANTIGEN Routine 12/31/2024 11:57 AM CDT Need for hepatitis B screening test HEPATITIS B CORE ANTIBODY, TOTAL Routine 12/31/2024 11:57 AM CDT Need for hepatitis B screening test HEPATITIS B SURFACE ANTIBODY (IMMUNE STATUS) Routine 12/31/2024 11:57 AM CDT Need for hepatitis B screening test XR FOOT RIGHT 3 OR MORE VIEWS ED 12/04/2024 5:02 PM CDT EGFR STAT 12/04/2024 4:54 PM CDT DIFFERENTIAL AUTO STAT 12/04/2024 4:5 4 PM CDT SEPSIS LACTATE WITH REFLEX STAT 12/04/2024 4:54 PM CDT COMPREHENSIVE METABOLIC PANEL STAT 12/04/2024 4:54 PM CDT CBC WITH AUTO DIFFERENTIAL STAT 12/04/2024 4:54 PM CDT AEROBIC AND ANAEROBIC CULTURE AND GRAM STAIN Routine 12/04/2024 3:33 PM CDT Infection of toe TN INCISION & DRAINAGE ABSCESS SIMPLE/SINGLE Routine 12/04/2024 2:45 PM CDT Infection of toe COLONOSCOPY Routine 09/29/2024 10:35 AM CDT US ABDOMINAL AORTIC ANEURYSM SCREENING Schedule Routine, Read Routine (OP Routine) 02/12/2024 9:07 AM CDT Screening for abdominal aortic aneurysm HEPATITIS C ANTIBODY Routine 01/19/2020 2:11 PM CDT Encounter for hepatitis C screening test for low risk patient from Last 3 Months or Most Recently Relevant to Health Maintenance Results * (ABNORMAL) eGFR (12/31/2024 11:57 AM CDT) eGFR 47(L) >=60 mL/min/1. 73 m2 Comment: Interpretive Data [...] was last reviewed 2021. Testing performed by: [facility], [address] [place] [address]., [address] Blood 12/31/2024 11:5 7 AM CDT 12/31/2024 7:16 PM CDT us Nick Almanzar MD LAB BLOOD ORDERABLES Renata gonzalez Result SHONA FRY (RAINELLE) 1 [facility] Department [place] [address] * Differential, auto (12/31/2024 11:57 AM CDT) Neutrophil abs 4.58 1.50 - 6.50 K/cumm Comment:Testing performed by : [facility], [address] [place] [address]., [address] Imm gran abs 0.01 0.00 - 0.10 K/cumm SHONA FRY (PAM) Comment:Testing performed by : [address] [address] Lymphocyte abs 1.10 0.80 - 3.30 K/cumm SHONA FRY (PAM) Comment:Testing performed by : [address] [address] Monocyte abs 0.59 0.20 - 0.80 K/cumm [facility] (PAM) Comment:Testing performed by : [facility], [address] [place] [address]., [address] Eosinophil abs 0.14 0.00 - 0.50 K/cumm [facility] (PAM) Comment:Testing performed by : [facility], [address] [place] [address]., [address] Basophil abs 0.01 0.00 - 0.10 K/cumm [facility] (PAM) Comment:Testing performed by : [address] [address] Neutrophil pct 71.1 % [facility] (PAM) Comment: Interpretive Data Percent cell count reference ranges are not reported, since discordance with absolute values may lead to misinterpretation of CBC data. Current Interpretive Data was last revised on 2017. Testing performed by: [address] [address] Imm gran pct 0.2 % [facility] (PAM) Comment: Interpretive Data Percent cell count reference ranges are not reported, since discordance with absolute values may lead to misinterpretation of CBC data. Current Interpretive Data was last revised on 2017. Testing performed by: [address] [address] Lymphocyte pct 17.1 % [facility] (PAM) Comment: Interpretive Data Percent cell count reference ranges are not reported, since discordance with absolute values may lead to misinterpretation of CBC data. Current Interpretive Data was last revised on 2017. Testing performed by: [address] [address] Monocyte pct 9.2 % [facility] (PAM) Comment: Interpretive Data Percent cell count reference ranges are not reported, since discordance with absolute values may lead to misinterpretation of CBC data. Current Interpretive Data was last revised on 2017. Testing performed by: [address] [address] Eosinophil pct 2.2 % [facility] (PAM) Comment: Interpretive Data Percent cell count reference ranges are not reported, since discordance with absolute values may lead to misinterpretation of CBC data. Current Interpretive Data was last revised on 2017. Testing performed by: [address] [address] Basophil pct 0.2 % [facility] (PAM) Comment: Interpretive Data Percent cell count reference ranges are not reported, since discordance with absolute values may lead to misinterpretation of CBC data. Current Interpretive Data was last revised on 2017. Testing performed by: [address], [address] Blood 12/31/2024 11:5 7 AM CDT 12/31/2024 7:03 PM CDT us Nick Almanzar MD LAB BLOOD ORDERABLES Renata gonzalez Result SHONA FRY (PAM) 1 [facility] Department [place] [address] * (ABNORMAL) CBC with auto differential (12/31/2024 11:57 AM CDT) WBC 6.43 3.80 - 9.90 K/cumm Comment:Testing performed by : [address], [address] Hgb 13.2 13.0 - 17.5 g/dL [facility] (PAM) Comment:Testing performed by : [address], [address] Hct 43.8 38.9 - 50.3 % [facility] (PAM) Comment:Testing performed by : [address] [address] Plt 125(L) 150 - 400 K/cumm [facility] (PAM) Comment:Testing performed by : [address] [address] MPV 11.6 9.1 - 12.3 fL [facility] (PAM) Comment:Testing performed by : [address], [address] RBC 4.75 4.30 - 5.80 M/cumm [facility] (PAM) Comment:Testing performed by : [address], [address] MCV 92.2 81.3 - 96.4 fL SHONA FRY (PAM) Comment:Testing performed by : [facility], [address] [place] [address], [address] MCH 27.8 27.1 - 33.3 pg [facility] (PAM) Comment:Testing performed by : [facility], [address] [place] [address], [address] MCHC 30.1(L) 32.3 - 35.7 g/dL [facility] (PAM) Comment:Testing performed by : [facility], [address] [place] [address], [address] RDW CV 15.4(H) 11.1 - 14.9 % [facility] (PAM) Comment:Testing performed by : [facility], [address] [place] [address], [address] RDW SD 52.8(H) 35.7 - 48.1 fL SHONA FRY (PAM) Comment:Testing performed by : [facility], [address] [place] [address], [address] NRBC abs 0.00 0.00 - 0.01 K/cumm SHONA FRY (PAM) Comment:Testing performed by : [facility], [address] [place] [address], [address] Blood 12/31/2024 11:5 7 AM CDT 12/31/2024 7:03 PM CDT Nick Almanzar MD LAB BLOOD ORDERABLES Renata gonzalez Result SHONA FRY (PAM) 1 [facility] Department [place] [address] * Hepatitis B core antibody, total Blood (12/31/2024 11:57 AM CDT) Hep B core IgG/IgM Nonreactive Nonreactive Comment:Testing performed by : [facility], [address] [facility] [place]., [address] Blood 12/31/2024 11:5 7 AM CDT 01/01/2025 10:21 AM CDT Nick Almanzar MD LAB MICROBIOLOGY - GENERA L ORDERABLES Final Result SHONA FRY (RAINELLE) 1 [facility] [place] [address] * Vitamin D 25 hydroxy (12/31/2024 11:57 AM CDT) Vitamin D 25-OH 80 30 - 80 ng/mL Comment:Testing performed by : [address], [address] Blood 12/31/2024 11:5 7 AM CDT 12/31/2024 7:03 PM CDT Nick Almanzar MD LAB BLOOD ORDERABLES Renata l Result Performing Organization Address [facility] Co de Phone Number SHONA FRY (RAINELLE) [address] [place] [id number] * Hepatitis B surface antibody (immune status) Blood (12/31/2024 11:57 AM CDT) HBsAb (immune status) Nonreactive Comment: Interpretive Data Nonreactive: This result is consistent with a lack of immunity to Hepatitis B Virus when used in the setting of routine screening. Equivocal: The immune status of the individual should be further assessed, if appropriate, after consideration of clinical status, risk factors, and additional diagnostic information. Reactive: This result is consistent with immunity to Hepatitis B Virus when used in the setting of routine screening. Current interpretive data was last revised on 19. Testing performed by: [address] [address] Blood 12/31/2024 11:5 7 AM CDT 12/31/2024 7:03 PM CDT Nick Almanzar MD LAB MICROBIOLOGY - GENERA L ORDERABLES Final Result Performing Organization Address City/[facility]/ZIP Co de Phone Number SHONA FRY (RAINELLE) 1 [facility] [place] [address] * Hepatitis B Surface Antigen Blood (12/31/2024 11:57 AM CDT) HepBsAg Nonreactive Nonreactive Comment:Testing performed by : [facility], [address] [place] [address]., [address] Blood 12/31/2024 11:5 7 AM CDT 12/31/2024 7:03 PM CDT Nick Almanzar MD LAB MICROBIOLOGY - GENERA L ORDERABLES Final Result SHONA ANG (RAINELLE) 1 [facility] Department [place] [address] * Lipid panel (12/31/2024 11:57 AM CDT) Cholesterol 147 30 - 199 mg/dL Comment: Interpretive Data Ages < or = 19 years Acceptable: <170 mg/dL Borderline high: 170-199 mg/dL High: >or= 200 mg/dL Ages > or = 20 years Desirable: <200 mg/dL Borderline high: 200-239 mg/dL High: >or= 240 mg/dL Literature References: 1. Expert Panel on Integrated Guidelines for Cardiovascular Health and Risk Reduction in Children and Adolescents. Pediatrics 2011;128:S213 2. NCEP Expert Panel. Circulation 2004;110:227 Current Interpretive Data was last revised on 2017. Testing performed by: [facility], [address] [place] [address]., [address] Triglycerides 124 <=149 mg/dL SHONA FRY (PAM) Comment: Interpretive Data Ages < or = 9 years Acceptable: <75 mg/dL Borderline high: 75-99 mg/dL High: >or= 100 mg/dL Ages 10 to 20 years Acceptable: <90 mg/dL Borderline high: 90-129 mg/dL High: >or= 130 mg/dL Ages > or = 20 years Desirable: <150 mg/dL Borderline high: 150-199 mg/dL High: 200-499 mg/dL Very high: >or= 499 mg/dL Literature References: 1. Expert Panel on Integrated Guidelines for Cardiovascular Health and Risk Reduction in Children and Adolescents. Pediatrics 2011;128:S213 2. NCEP Expert Panel. Circulation 2004;110:227 Current Interpretive Data was last revised on 2017. Testing performed by: [facility], [address] [place] [address]., [address] HDL 47 >=40 mg/dL SHONA Rodríguez (PAM) Comment: Interpretive Data Ages < or = 19 years Acceptable: >45 mg/dL Borderline low: 40-45 mg/dL Low: <40 mg/dL Ages > or = 20 years Desirable: >or= 60 mg/dL Low: <40 mg/dL Literature References: 1. Expert Panel on Integrated Guidelines for Cardiovascular Health and Risk Reduction in Children and Adolescents. Pediatrics 2011;128:S213 2. NCEP Expert Panel. Circulation 2004;110:227 Current Interpretive Data was last revised on 2017. Testing performed by: [facility], [address] [place] [address]., [address] LDL, calculated 78 <=129 mg/dL SHONA FRY (PAM) Comment: Interpretive Data Ages < or = 19 years Acceptable: <110 mg/dL Borderline high: 110-129 mg/dL High: >or= 130 mg/dL Ages > or = 20 years Optimal: <100 mg/dL Near optimal: 100-129 mg/dL Borderline high: 130-159 mg/dL High: >160 mg/dL Calculated using the Remington LDL-C estimating equation. This equation was implemented on 2023. Prior to this date LDL-C was estimated using the Friedewald equation. Literature References: 1. Expert Panel on Integrated Guidelines for Cardiovascular Health and Risk Reduction in Children and Adolescents. Pediatrics 2011;128:S213 2. NCEP Expert Panel. Circulation 2004;110:227 3. Remington Santoyo et al. LUIS ARMANDO Cardiol. 2020 August 14;5(5):540-548. doi: 10.1001/[email or web address].2020.0013 Current Interpretive Data was last revised on 2023. Testing performed by: [address] [address] Non-HDL Cholesterol 100 mg/dL SHONA FRY (PAM) Comment: Interpretive Data Ages < or = 19 years Acceptable: <120 mg/dL Borderline high: 120-144 mg/dL High: >145 mg/dL Ages > or = 20 years When triglycerides are >200 mg/dL, Non-HDL cholesterol is a secondary target of therapy with treatment goals that are 30 mg/dL greater than the LDL cholesterol target. Literature References: 1. Expert Panel on Integrated Guidelines for Cardiovascular Health and Risk Reduction in Children and Adolescents. Pediatrics 2011;128:S213 2. NCEP Expert Panel. Circulation 2004;110:227 Current Interpretive Data was last revised on 2017. Testing performed by: [address] [address] Chol/HDL ratio 3 CERNE R AN[facility] (PAM) Comment:Testing performed by : [address] [address] Blood 12/31/2024 11:5 7 AM CDT 12/31/2024 7:03 PM CDT us Nick Almanzar MD LAB BLOOD ORDERABLES Renata gonzalez Result SHONA FRY (PAM) 1 [facility] Department [place] [address] * (ABNORMAL) Comprehensive metabolic panel (12/31/2024 11:57 AM CDT) Sodium 143 135 - 145 mmol/L Comment:Testing performed by : [address] [address] Potassium, pl 4.4 3.3 - 4.9 mmol/L [facility] (PAM) Comment:Testing performed by : [address] [address] Chloride 107 97 - 110 mmol/L [facility] (PAM) Comment:Testing performed by : [address] [address] CO2 25 22 - 32 mmol/L [facility] (PAM) Comment:Testing performed by : [address] [address] Anion gap 11 2 - 15 mmol/L [facility] (PAM) Comment:Testing performed by : [address] [address] BUN 33(H) 6 - 25 mg/dL [facility] (PAM) Comment:Testing performed by : [address] [address] Creatinine 1.50(H) 0.80 - 1.30 mg/dL [facility] (PAM) Comment:Testing performed by : [address] [address] Glucose 94 70 - 199 mg/dL [facility] (PAM) [...] was last revised 2022. Testing performed by: [address], [address] Calcium 9.9 8.5 - 10.3 mg/dL [facility] (PAM) Comment:Testing performed by : [address], [address] Bilirubin, total 0.2 0.1 - 1.2 mg/dL [facility] (PAM) Comment:Testing performed by : [address] [address] Protein, pl 6.6 6.5 - 8.5 g/dL [facility] (PAM) Comment:Testing performed by : [address], [address] Albumin 3.9 3.5 - 5.0 g/dL [facility] (PAM) Comment:Testing performed by : [address], [address] Alk phos 86 40 - 130 Units/L [facility] (PAM) Comment:Testing performed by : [address], [address] ALT 14 7 - 55 Units/L [facility] (PAM) Comment:Testing performed by : [address], [address] AST 21 10 - 50 Units/L SHONA FRY (PAM) Comment:Testing performed by : [facility], [id number] [place] [address], [place]., [address] Blood 12/31/2024 11:5 7 AM CDT 12/31/2024 7:03 PM CDT us Nick Almanzar MD LAB BLOOD ORDERABLES Renata carlos Result HSONA FRY (PAM) 1 [facility] [place] [address] * XR Foot Right 3 or More Views (12/04/2024 5:02 PM CDT) Anatomical Region Laterality Modality Lower Extremities, Foot Right Computed Radiography 12/04/2024 6:28 PM CDT Narrative 12/04/2024 6:30 PM CDT EXAM DESCRIPTION: XR FOOT RIGHT 3 OR MORE VIEWS REASON FOR STUDY: wound, wound fourth digit redness and irritation to the 4th digit on the right foot x 2 days. Pt reports he was at today where they opened up a blister on his toe and sent cultures of it. Pt was advised to come to ED. TECHNIQUE: 3 radiographic view(s) of the right foot . COMPARISON: None FINDINGS: BONES/JOINTS: There is no acute fracture, malalignment or osseous abnormality. Degenerative narrowing of the 1st metatarsophalangeal joint with associated cyst formation and marginal osteophytes. SOFT TISSUES: Soft tissue swelling about the 4th phalanx. No radiopaque foreign body. IMPRESSION: Soft tissue swelling about the 4th phalanx. No evidence of fracture or radiopaque foreign body. THIS IS AN ELECTRONICALLY VERIFIED FINAL REPORT 12/04/2024 6:30 PM - Electronically signed by Vicente Byrd M.D. KT: DIANN Report ID: [id number] Reading Location: [place] [address] Procedure Note Vicente Byrd MD - 12/04/2024 EXAM DESCRIPTION: XR FOOT RIGHT 3 OR MORE VIEWS REASON FOR STUDY: wound, wound fourth digit redness and irritation to the 4th digit on the right foot x 2 days. Pt reports he was at today where they opened up a blister on his toe andsent cultures of it. Pt was advised to come to ED. TECHNIQUE: 3 radiographic view(s) of the right foot . COMPARISON: None FINDINGS: BONES/JOINTS: There is no acute fracture, malalignment or osseousabnormality. Degenerative narrowing of the 1st metatarsophalangeal joint withassociated cyst formation and marginal osteophytes. SOFT TISSUES: Soft tissue swelling about the 4th phalanx. No radiopaque foreign body. IMPRESSION: Soft tissue swelling about the 4th phalanx. No evidence of fracture or radiopaque foreign body. THIS IS AN ELECTRONICALLY VERIFIED FINAL REPORT 12/04/2024 6:30 PM - Electronically signed by Vicente Byrd M.D. KT: DIANN Report ID: [id number] Reading Location: [place] [address] Debra AVALOS IMG XR PROCEDURES Final Result * Sepsis Lactate w/ Reflex (12/04/2024 4:54 PM CDT) Pathologist [facility] Sepsis Lactate 1.0 0.7 - 2.0 mmol/L Blood 12/04/2024 4:54 PM CDT 12/04/2024 4:58 PM CDT Debra AVALOS LAB BLOOD ORDERABLES Final Resu lt [facility] [address] [facility] Department [place] [address] * (ABNORMAL) eGFR (12/04/2024 4:54 PM CDT) Pathologist [facility] eGFR 46(L) >=60 mL/min/1. 73 m2 Comment: Interpretive Data [...] Current interpretive data was last reviewed 2021. Blood 12/04/2024 4:54 PM CDT 12/04/2024 4:58 PM CDT us Debra AVALOS LAB BLOOD ORDERABLES Final Resu lt [facility] ([place]) [address] [facility] Department [place] [address] * Differential, auto (12/04/2024 4:54 PM CDT) Neutrophil abs 5.30 1.50 - 6.50 K/cumm Imm gran abs 0.02 0.00 - 0.10 K/cumm [facility] ([facility]) Lymphocyte abs 1.21 0.80 - 3.30 K/cumm [facility] ([facility]) Monocyte abs 0.58 0.20 - 0.80 K/cumm [facility] ([facility]) Eosinophil abs 0.14 0.00 - 0.50 K/cumm [facility] ([facility]) Basophil abs 0.01 0.00 - 0.10 K/cumm [facility] ([facility]) Neutrophil pct 73.0 % [facility] (P[facility]) Comment: Interpretive Data Percent cell count reference ranges are not reported, since discordance with absolute values may lead to misinterpretation of CBC data. Current Interpretive Data was last revised on 2017. Imm gran pct 0.3 % [facility] ([facility]) Comment: Interpretive Data Percent cell count reference ranges are not reported, since discordance with absolute values may lead to misinterpretation of CBC data. Current Interpretive Data was last revised on 2017. Lymphocyte pct 16.7 % [facility] ([facility]) Comment: Interpretive Data Percent cell count reference ranges are not reported, since discordance with absolute values may lead to misinterpretation of CBC data. Current Interpretive Data was last revised on 2017. Monocyte pct 8.0 % [facility] ([facility]) Comment: Interpretive Data Percent cell count reference ranges are not reported, since discordance with absolute values may lead to misinterpretation of CBC data. Current Interpretive Data was last revised on 2017. Eosinophil pct 1.9 % [facility] ([facility]) Comment: Interpretive Data Percent cell count reference ranges are not reported, since discordance with absolute values may lead to misinterpretation of CBC data. Current Interpretive Data was last revised on 2017. Basophil pct 0.1 % [facility] ([facility]) Comment: Interpretive Data Percent cell count reference ranges are not reported, since discordance with absolute values may lead to misinterpretation of CBC data. Current Interpretive Data was last revised on 2017. Blood 12/04/2024 4:54 PM CDT 12/04/2024 4:58 PM CDT us Debra AVALOS LAB BLOOD ORDERABLES Final Resu lt [facility] (PAM) [address] [facility] Department [place] [address] * (ABNORMAL) CBC with auto differential (12/04/2024 4:54 PM CDT) WBC 7.26 3.80 - 9.90 K/cumm Hgb 13.3 13.0 - 17.5 g/dL [facility] ([facility]) Hct 41.2 38.9 - 50.3 % [facility] ([facility]) Plt 146(L) 150 - 400 K/cumm [facility] ([facility]) MPV 10.7 9.1 - 12.3 fL [facility] ([facility]) RBC 4.74 4.30 - 5.80 M/cumm [facility] (PAM) MCV 86.9 81.3 - 96.4 fL [facility] MCH 28.1 27.1 - 33.3 pg [facility] ([facility] MCHC 32.3 32.3 - 35.7 g/dL [facility] RDW CV 14.6 11.1 - 14.9 % [facility] RDW SD 46.5 35.7 - 48.1 fL [facility] (P[facility]) NRBC abs 0.00 0.00 - 0.01 K/cumm [facility] (PAM) Blood 12/04/2024 4:54 PM CDT 12/04/2024 4:58 PM CDT us Debra AVALOS LAB BLOOD ORDERABLES Final Resu lt [facility] ([place]) [address] [facility] Department [place] [address] * (ABNORMAL) Comprehensive metabolic panel (12/04/2024 4:54 PM CDT) Sodium 144 135 - 145 mmol/L [facility] (PAM) Potassium, pl 3.7 3.3 - 4.9 mmol/L [facility] (PAM) Chloride 110 97 - 110 mmol/L [facility] (PAM) CO2 21(L) 22 - 32 mmol/L [facility] (PAM) Anion gap 13 2 - 15 mmol/L [facility] (PAM) BUN 29(H) 6 - 25 mg/dL [facility] (P[facility]) Creatinine 1.54(H) 0.80 - 1.30 mg/dL [facility] Glucose 105 70 - 199 mg/dL [facility] (PAM) Comment: Interpretive Data Fasting glucose [...] Current interpretive data was last revised 2022. Calcium 9.2 8.5 - 10.3 mg/dL [facility] ([facility]) Bilirubin, total 0.2 0.1 - 1.2 mg/dL [facility] ([facility]) Protein, pl 6.8 6.5 - 8.5 g/dL [facility] ([facility]) Albumin 3.9 3.5 - 5.0 g/dL [facility] ([facility]) Alk phos 98 40 - 130 Units/L [facility] ([facility]) ALT 12 7 - 55 Units/L [facility] ([facility]) AST 16 10 - 50 Units/L [facility] ([facility]) Blood 12/04/2024 4:54 PM CDT 12/04/2024 4:58 PM CDT Debra AVALOS LAB BLOOD ORDERABLES Final Resu lt [facility] ([facility]) [address] [facility] Department [place] [address] * (ABNORMAL) Aerobic and anaerobic culture and gram stain Wound Toe, fourth, right (12/04/2024 3:33 PM CDT) Direct Specimen Exam Stain: No polymorphonuclear leukocytes seen. Abundant Gram Positive Cocci Comment:Testing performed by : [facility], [address] [facility] [place]., [address] Report Final Report: Abundant Staphylococcus aureus Methicillin susceptible (MSSA) by penicillin binding protein 2a (PBP2a) testing. Rare Staphylococcus lugdunensis (.) [facility] Comment:Testing performed by : [facility], [address] [facility] [place] [address] Organism STAPHYLOCOCCUS AUREUS VANDANANER Organism STAPHYLOCOCCUS LUGDUNENSIS VANDANANER Wound (Toe, fourth, right) 12/04/2024 3:33 PM CDT 12/05/2024 2:20 AM CDT Gregg NAGEL CH - 12/12/2024 7:16 AM CDT Specimen received on an ESwab. Testing performed by [facility] ([phone]) Specimens submitted from normally sterile body sites will have all bacterial morphotypes identified. Specimens that contain grossly mixed mojgan and/or are from body sites that are not normally sterile will be examined for Staphylococcus aureus, Pseudomonas aeruginosa, beta-hemolytic strep, vancomycin-resistant Enterococcus, Bacteroides, Parabacteroides, Clostridium perfringens and fungus. If any of these are isolated, the organism will be reported. Current interpretive data was last revised on 2019. Organism Antibiotic Method Susceptibility Staphylococcus aureus Vancomycin INTERPRETATION Susceptible Staphylococcus aureus Trimethoprim with Sulfamethoxazole INTERPRETATION Susceptible Staphylococcus aureus Linezolid INTERPRETATION Susceptible Staphylococcus aureus Doxycycline INTERPRETATION Susceptible Staphylococcus aureus Clindamycin INTERPRETATION Susceptible Staphylococcus aureus Erythromycin INTERPRETATION Susceptible Staphylococcus aureus Oxacillin INTERPRETATION Susceptible Staphylococcus aureus Cefazolin INTERPRETATION Susceptible Staphylococcus aureus Ceftriaxone INTERPRETATION Susceptible Staphylococcus lugdunensis Vancomycin INTERPRETATION Susceptible Staphylococcus lugdunensis Trimethoprim with Sulfamethoxazole INTERPRETATION Susceptible Staphylococcus lugdunensis Linezolid INTERPRETATION Susceptible Staphylococcus lugdunensis Doxycycline INTERPRETATION Susceptible Staphylococcus lugdunensis Clindamycin INTERPRETATION Resistant Staphylococcus lugdunensis Erythromycin INTERPRETATION Susceptible Staphylococcus lugdunensis Oxacillin INTERPRETATION Susceptible Staphylococcus lugdunensis Cefazolin INTERPRETATION Susceptible Staphylococcus lugdunensis Ceftriaxone INTERPRETATION Susceptible us Lisbet Apodaca NP LAB MICROBIOLOGY - GENERAL ORDERABLES Final Result [facility] [id number] [facility] Department [place] [address] * [place] INCISION & DRAINAGE ABSCESS SIMPLE/SINGLE (12/04/2024 2:45 PM CDT) Narrative Nick Almanzar MD - 12/04/2024 2:45 PM CDT Nick Almanzar MD 12/05/2024 3:26 PM Incision and Drainage Performed by: Lisbet Apodaca NP Authorized by: Lisbet Apodaca NP Consent Given by: Patient Verbal consent obtained: Yes Type: Paronychia Body area: Lower extremity Location details: Left fourth toe Anesthesia method: none. Offered, patient declined. Needle gauge: 22 G Incision type: Single puncture. Complexity: Simple Drainage: Purulent Drainage amount: Moderate Wound treatment: Wound left open Patient tolerance: Patient tolerated the procedure well with no immediate complications Lisbet Apodaca FLOOR MOLDER IN CLINIC/BEDSIDE ORDERABLE S Final Result * Colonoscopy (09/29/2024 10:35 AM CDT) Anatomical Region Laterality Modality Other 09/29/2024 10:3 5 AM CDT Historical Provider ENDOSCOPY PROCEDURES Renata l Result * US Abdominal Aortic Aneurysm Screening [...] MD IMG US PROCEDURES Final Result * Hepatitis C antibody (01/19/2020 2:11 PM [...] MICROBIOLOGY - GENERAL OR DERABLES Final Result Performing Organization Address City/State/[facility] Co de Phone Number [facility] [place] [address] Department [place] [address] from Last 3 Months or Most Recently Relevant to Health Maintenance Insurance AET MEDICARE AETNA MEDICARE AET MEDICARE T MEDICARE Advance Directives For more information, please contact: [phone] Documents on File Type Date Recorded Patient Director Software Expl anation ADVANCE DIRECTIVE 01/03/2022 2:56 PM [employer] * Full Code (Latest Code Status on [...] 6:30 PM 05/24/2020 4:53 PM Care Teams Care Asst Relationship Specialty Start Date End Date Nick Almanzar MD [address] [place] [address] PCP - General Family Medicine 12/23/20 Luke Santiago MD Consulting Physician Pulmonary Disease 05/15/20 [place] [address] [address] [facility] [address] [place] [address] Consulting Physician Pulmonary Disease 11/02/20 Jony Wilcox MD [address] [place] [address] [address] [place] [address] Consulting Physician Nephrology 06/19/23 Maria A Seymour MD [address] [facility] [address] [place], [place] [id number] Consulting Physician Interventional Cardiology 06/19/23 Alex Urbina MD [address] [facility] [address], [facility] [address] [place] [address] Consulting Physician Cardiology 06/19/23 [place] [id number] [address] Nurse Practitioner Prime Minister 02/27/24
--- OUTSIDE RECORDS SUMMARY | 2025-01-02 09:51 | XMS_ITS | Encounter Summary ---
Author Organization [facility] Healthcare Address [address] [place] [address] Care Team Providers Care [employer] Assistant Principal Name Role Phone Luke Santiago MD Unavailable Michael Lynch MD Unavailable [phone] Nick Almanzar MD Primary Care Provider [phone] Maribell Diaz LPN Unavailable Savannah Staton MA Unavailable [phone] Savannah Staton MA Unavailable [phone] Emmanuel Rodriguez LPN Unavailable [phone] Jony Wilcox MD Unavailable [phone] Maria A Seymour MD Unavailable [phone] Alex Urbina MD Unavailable [phone] Millicent Mccracken RN Unavailable Vanessa Darling NP [...] oz pur e alcohol) Social Connection and Isolation Panel Answer Date Recorded In a typical week, how many times do you talk on the phone with family, friends, or neighbors? More than three times a week 04/07/2022 How often do you get togethe r with friends or relatives? More than three times a week 04/07/2022 How often do you attend [facility] or christian services? More than 4 times per year 04/07/2022 Do you belong to any clubs o r organizations such as synagogue groups, unions, fraternal or athletic groups, or [...] in a nursing home (including now)? No 04/07/2022 Sex and Gender Information Value Date Recorded Sex Assigned at Not on file Legal Sex Male 1:30 PM ELECTRICAL CONTROLS TECHNICIAN Gender Identity Male 02/21/2021 12:31 PM ELECTRICAL CONTROLS TECHNICIAN Sexual Orientation Straight 12/22/2020 11 :36 AM CDT documented as of this encounter Plan of Treatment Not on file documented as of this encounter Visit Diagnoses Not on filedocumented in this encounter Additional Health Concerns Infection Onset Date Last Indicated Resolved Time COVID: Suspected 05/30/2022 05/30/2022 05/30/2022 6:01 AM ELECTRICAL CONTROLS TECHNICIAN Coronavirus, contact + droplet 05/30/2022 05/30/2022 06/10/2022 10:20 AM ELECTRICAL CONTROLS TECHNICIAN COVID19 Comment:06/10/2022 This patient has recovered from a previous COVID infection and can be managed with routine PPE Opal Sorto RN 05/30/2022 05/30/2022 06/10/2022 10:17 AM ELECTRICAL CONTROLS TECHNICIAN COVID: Recovered Comment:Added based on recent COVID infection. 06/10/2022 06/10/2022 09/08/2022 3:05 AM C DT COVID: Suspected 07/18/2022 07/18/2022 07/18/2022 10:05 AM CDT COVID19 Comment:Patient is COVID recovered. 07/18/2022 Lie Arnold 07/18/2022 07/18/2022 07/18/2022 11:47 AM CDT COVID: Recovered Comment:Added based on recent COVID infection. 07/18/2022 09/14/2022 10/16/2022 3:05 AM C DT COVID: Suspected 06/16/2023 06/16/2023 06/16/2023 6:46 PM ELECTRICAL CONTROLS TECHNICIAN documented as of this encounter Care Teams High [employer] Assistant Principal Relationship Specialty Start Date End Date Nick Almanzar MD [address] [place] [address] PCP - General Family Medicine 12/23/20 Luke Santiago MD Consulting Physician Pulmonary Disease 05/15/20 [place] [address] [facility] [address] [place] [address] Consulting Physician Pulmonary Disease 11/02/20 Maribell Diaz LPN [address] [place] [address] [address] [place] [address] Linen Room Houseperson 08/16/22 09/06/22 Savannah Staton MA [address] [place] [address] [address] [place] [address] ACO Care Metal Box Maker 02/22/23 02/22/23 Savannah Staton MA [address] [place] [address] [address] [place] [address] ACO Care Metal Box Maker 02/23/23 02/23/23 Emmanuel Rodriguez LPN [address] [place] [address] [address] [place] [address] ACO Care Metal Box Maker 05/21/23 06/20/23 Jony Wilcox MD [address] [place] [address] [address] [place] [address] Consulting Physician Nephrology 06/19/23 Maria A Seymour MD [address] [place], [place] [address] [facility] [address], [place] [address] Consulting Physician Interventional Cardiology 06/19/23 Alex Urbina MD [address] [facility] [address] [facility] [address] [place] [address] Consulting Physician Cardiology 06/19/23 Millicent Mccracken, RN [address] [place] [address] [facility] [address] [place] [address] Linen Room Houseperson 06/20/23 07/18/23 [place] [address] [address] [facility] [address] [place] [address] Nurse Practitioner Heading Repairer 02/27/24 documented as of this encounter
--- OUTSIDE RECORDS SUMMARY | 2025-01-02 09:51 | XMS_ITS ---
Author Organization [facility] Address [address] [place] [address] Care Team Providers Care Criminal Court Judge Name Role Phone Luke Santiago MD Unavailable Michael Lynch MD Unavailable Nick Almanzar MD Primary Care Provider [phone] Jony Wilcox MD Unavailable [phone] Maria A Seymour MD Unavailable [phone] Alex Urbina MD Unavailable Vanessa Darling NP [...] 12/04/2024 3:33 PM CDT Infection of toe TX INCISION & DRAINAGE ABSCESS SIMPLE/SINGLE Routine 12/04/2024 2:45 PM CDT Infection of toe COLONOSCOPY Routine 09/29/2024 10:35 AM CDT ABDOMINAL AORTIC ANEURYSM SCREENING Schedule Routine, Read [...] needed for wheezing or shortness of breath Active albuterol 2.5 mg /3 mL (0.083 [...] mg SL tabletIndications :Coronary artery disease of [place] artery of [place] heart with stable angina pectoris Place 1 [...] controlled; continue calcitriol 0.25 mcg daily; ergocalciferol 33800 units weekly Phimosis 12/19/2024 Depression 12/19/2024 Kidney [...] via J tube 8 and initially tolerating. Vegetable Vendor re advanced TFlushes & spot bolus IVF [...] via J tube 8 and initially tolerating. Vegetable Vendor re advanced TFlushes & spot bolus IVF [...] leukocytosis. Assessment & Plan (06/24/2022 5:08 PM PARTS COUNTER SALESPERSON): Per nursing over last few weeks has [...] TF via J tube 38 and tolerating. Vegetable Vendor re TFlushes. Continue Strict aspiration precautions. - ANIA MELARA, no constipation. Assessment & Plan (06/23/2022 4:00 PM PARTS COUNTER SALESPERSON): Per nursing over last few weeks has [...] 38. Continue Strict aspiration precautions. - ANIA salgado NAD, no constipation. Assessment & Plan (06/22/2022 4:16 PM PARTS COUNTER SALESPERSON): Per nursing over last few weeks has [...] NAD. Assessment & Plan (06/21/2022 3:29 PM PARTS COUNTER SALESPERSON): Per nursing over last few weeks has [...] NAD. Assessment & Plan (06/20/2022 6:17 PM PARTS COUNTER SALESPERSON): Per nursing over last few weeks has [...] Plan (07/14/2022 12:14 PM CDT): Urine Cx /2 growing Klebsiella variicola. Sensitivities include ceftriaxone. Completed [...] negative. Assessment & Plan (06/24/2022 5:06 PM PARTS COUNTER SALESPERSON): UA on 3/2 with nitrates and >50 WBC. No urine cultures with MDR. Started IV ceftriaxone. Might be adding some component to the AMS, but no change noted with treatment with IV Ceftriaxone (3/2-c). Urine Cx growing Klebsiella variicola. Sensitivities include ceftriaxone. Pt completed 7 day course 06/22/22. Checked for urinary retention, bladder scan negative. Assessment & Plan (06/23/2022 3:59 PM PARTS COUNTER SALESPERSON): UA on 32 with nitrates and >50 WBC. No urine cultures with MDR. Started IV ceftriaxone. Might be adding some component to the AMS, but no change noted with treatment with IV Ceftriaxone (3/2-c). Urine Cx growing Klebsiella variicola. Sensitivities include ceftriaxone. Pt completed 7 day course 06/22/22. Checked for urinary retention, bladder scan negative. Assessment & Plan (06/22/2022 4:16 PM PARTS COUNTER SALESPERSON): UA on 3 with nitrates and >50 WBC. No urine cultures with MDR. Started IV ceftriaxone. Might be adding some component to the AMS, but no change noted with treatment with IV Ceftriaxone (3/2-c). Pt completed 7 day course 06/22/22. Checked for urinary retention, bladder scan negative. -Urine Cx growing Klebsiella variicola. Sensitivities back. S to CTX Assessment & Plan (06/21/2022 3:31 PM PARTS COUNTER SALESPERSON): UA on 3 with nitrates and >50 WBC. No urine cultures with MDR. Started IV ceftriaxone. Might be adding some component to the AMS. -Ceftriaxone 3/2- completes 7 day course on 06/22/22. Check for urinary retention, bladder scan negative. -Urine Cx growing Klebsiella variicola. Sensitivities back. S to CTX Assessment & Plan (06/19/2022 10:12 PM PARTS COUNTER SALESPERSON): UA on 3/2 with nitrates and >50 WBC. No urine cultures with MDR. Will start him on ceftriaxone while urine culture results. Might be adding some component to the AMS. -Ceftriaxone 3/2- complete 7 day course. Check for urinary retention. -Urine Cx growing Klebsiella variicola. Sensitivities back. S to CTX Assessment & Plan (06/16/2022 12:04 PM PARTS COUNTER SALESPERSON): UA on 06/15 with nitrates and >50 WBC. No urine cultures with MDR. Will start him on ceftriaxone while urine culture results. Might be adding some component to the AMS. -Ceftriaxone 06/15- -Urine Cx growing Klebsiella variicola. Sensitivities pending. Assessment & Plan (06/15/2022 1:24 PM PARTS COUNTER SALESPERSON): UA on 06/15 with nitrates and >50 [...] unremarkable. Assessment & Plan (06/24/2022 5:03 PM PARTS COUNTER SALESPERSON): Normocytic. AOCD pattern on labs. Likely from GIN, serious illness, frequent blood draws, etc. -Intermittently requiring PRBC last 06/03/22. F/u Hb 7.8, limit routine labs. No evidence of hematuria, melena or hematochezia. Assessment & Plan (06/23/2022 3:48 PM PARTS COUNTER SALESPERSON): Normocytic. AOCD pattern on labs. Likely from GIN, serious illness, frequent blood draws, etc. -Intermittently requiring PRBC last 06/03/22. F/u Hb 7.3, limit routine labs. No evidence of hematuria, melena or hematochezia. Assessment & Plan (06/22/2022 4:08 PM PARTS COUNTER SALESPERSON): Normocytic. AOCD pattern on labs. Likely from GIN, serious illness, frequent blood draws, etc. -Intermittently requiring PRBC last 06/03/22. F/u Hb 7.3, limit routine labs. No evidence of hematuria, melena or hematochezia. Assessment & Plan (06/21/2022 3:23 PM PARTS COUNTER SALESPERSON): Normocytic. AOCD pattern on labs. Likely from GIN, serious illness, frequent blood draws, etc. -Intermittently requiring PRBC last 06/03/22. F/u Hb 7.5, limit routine labs. Assessment & Plan (06/20/2022 6:09 PM PARTS COUNTER SALESPERSON): Normocytic. AOCD pattern on labs. Likely from GIN, serious illness, frequent blood draws, etc. -Intermittently requiring PRBC last 06/03/21. F/u Hb 7.5, limit routine labs. Assessment & Plan (06/16/2022 11:57 AM PARTS COUNTER SALESPERSON): Normocytic. AOCD pattern on labs. Likely from GIN, serious illness, frequent blood draws, etc. -Intermittently requiring PRBC last 06/03/21. Assessment & Plan (06/15/2022 1:22 PM PARTS COUNTER SALESPERSON): Normocytic. AOCD pattern on labs. Likely from GIN, serious illness, frequent blood draws, etc. -Intermittently requiring PRBC last 06/03/21. Assessment & Plan (06/14/2022 2:26 PM PARTS COUNTER SALESPERSON): Normocytic. AOCD pattern on labs. Likely from GIN, serious illness, frequent blood draws, etc. -Intermittently requiring PRBC last 06/03/21. F/u Hb 8.1. Assessment & Plan (06/13/2022 4:10 PM PARTS COUNTER SALESPERSON): Normocytic. AOCD pattern on labs. Likely from GIN, serious illness, frequent blood draws, etc. -Intermittently requiring PRBC last 06/03/21. F/u Hb 8.1. Assessment & Plan (06/12/2022 6:17 PM PARTS COUNTER SALESPERSON): Normocytic. AOCD pattern on labs. Likely from GIN, serious illness, frequent blood draws, etc. - intermittently requiring PRBC last 06/03/21. F/u Hb 8.1. Billing statement. I have reviewed current Hb 8.5, remains stable post recent transfusion with HD stability. Plan to limit blood draws, monitor serial counts for additional needs. Transfuse PRN Hb<7. Assessment & Plan (06/11/2022 4:33 PM PARTS COUNTER SALESPERSON): Normocytic. AOCD pattern on labs. Likely from GIN, serious illness, frequent blood draws, etc. - intermittently requiring PRBC last 06/03/21. F/u Hb 8.1. Billing statement. I have reviewed current Hb 8.5, remains stable post recent transfusion with HD stability. Plan to limit blood draws, monitor serial counts for additional needs. Transfuse PRN Hb<7 Assessment & Plan (06/10/2022 3:23 PM PARTS COUNTER SALESPERSON): Normocytic. AOCD pattern on labs. Likely from GIN, serious illness, frequent blood draws, etc. - intermittently requiring PRBC last 06/03/21. F/u Hb 8.1. Billing statement. I have reviewed current Hb 8.1, remains stable post recent transfusion with HD stability. Plan to limit blood draws, monitor serial counts for additional needs. Transfuse PRN Hb<7 Assessment & Plan (06/10/2022 9:24 AM PARTS COUNTER SALESPERSON): Normocytic. AOCD pattern on labs. Likely from GIN, serious illness, frequent blood draws, etc. - intermittently requiring PRBC last 06/03/21. F/u Hb 8.1. Billing statement. I have reviewed current Hb 8.1, remains stable post recent transfusion with HD stability. Plan to limit blood draws, monitor serial counts for additional needs. Transfuse PRN Hb<7 Assessment & Plan (06/08/2022 4:02 PM PARTS COUNTER SALESPERSON): Normocytic. AOCD pattern on labs. Likely from GIN, serious illness, frequent blood draws, etc. - intermittently requiring PRBC last 06/03/21. F/u Hb 8.1. Billing statement. I have reviewed current Hb 8.1, remains stable post recent transfusion with HD stability. Plan to limit blood draws, monitor serial counts for additional needs. Assessment & Plan (06/07/2022 11:00 AM PARTS COUNTER SALESPERSON): Normocytic. AOCD pattern on labs. Likely from GIN, serious illness, frequent blood draws, etc. - intermittently requiring PRBC last 06/03/21 Billing statement. I have reviewed current Hb 8.1, remains stable post recent transfusion with HD stability. Plan to limit blood draws, monitor serial counts for additional needs. Assessment & Plan (06/06/2022 6:31 PM PARTS COUNTER SALESPERSON): Normocytic. 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 - intermittently requiring PRBC last 06/03 Billing statement. I have reviewed current Hb 8.1, remains stable post transfusion. Plan to limit blood draws, monitor serial counts. Assessment & Plan (06/05/2022 2:00 PM PARTS COUNTER SALESPERSON): - Normocytic. 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 - intermittently requiring PRBC last 06/03 Assessment & Plan (06/04/2022 11:09 AM PARTS COUNTER SALESPERSON): - Normocytic. 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 - f/u CBC today p 1 unit PRBC 06/03 Assessment & Plan (06/03/2022 2:57 PM PARTS COUNTER SALESPERSON): - Normocytic. 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 - requiring 1 unit PRBC today for slow drop likely AOCD and lab draws Assessment & Plan (06/02/2022 2:26 PM PARTS COUNTER SALESPERSON): - Normocytic. 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 - cont to monitor H/H, transfuse for Hb < 7, remains relatively stable but at borderline of requiring PRBC Assessment & Plan (06/01/2022 2:18 PM PARTS COUNTER SALESPERSON): - Normocytic. 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 - cont to monitor H/H, transfuse for Hb < 7, remains relatively stable but at borderline of requiring PRBC Assessment & Plan (05/31/2022 2:57 PM PARTS COUNTER SALESPERSON): - Normocytic. 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 - cont to monitor H/H, transfuse for Hb < 7 Assessment & Plan (05/30/2022 2:03 PM PARTS COUNTER SALESPERSON): - Normocytic. 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 - cont to monitor H/H, transfuse for Hb < 7 Assessment & Plan (05/29/2022 3:13 PM PARTS COUNTER SALESPERSON): Normocytic. B12, folate normal. Likely from GIN, serious illness, frequent blood draws, etc. Drop over last 24 hrs likely dilutional due to IVF. No e/o bleeding - cont to monitor H/H, transfuse for Hb < 7 - ferritin high, c/w anemia of chronic dz Assessment & Plan (05/28/2022 1:53 PM PARTS COUNTER SALESPERSON): Normocytic. B12, folate normal. Likely from GIN, serious illness, frequent blood draws, etc. Drop over last 24 hrs likely dilutional due to IVF. No e/o bleeding - cont to monitor H/H, transfuse for Hb < 7 - ferritin high, c/w anemia of chronic dz Assessment & Plan (05/27/2022 3:53 PM PARTS COUNTER SALESPERSON): Normocytic. B12, folate normal. Likely from GIN, serious illness, frequent blood draws, etc. Drop over last 24 hrs likely dilutional due to IVF. No e/o bleeding - cont to monitor H/H, transfuse for Hb < 7 - ferritin high, c/w anemia of chronic dz Assessment & Plan (05/26/2022 1:22 PM PARTS COUNTER SALESPERSON): Normocytic. B12, folate normal. Likely from GIN, [...] -Apparently can get denosumab but would need ELECTRONIC DEVELOPMENT TECHNICIAN approval. Appreciate nephrology help sensipar not an [...] -Apparently can get denosumab but would need ELECTRONIC DEVELOPMENT TECHNICIAN approval. Appreciate nephrology help sensipar not an [...] status. Assessment & Plan (06/24/2022 5:06 PM PARTS COUNTER SALESPERSON): Normocalcemic on arrival. Uncorrected Ca as high [...] -Apparently can get denosumab but would need ELECTRONIC DEVELOPMENT TECHNICIAN approval. Appreciate nephrology help sensipar not an [...] am. Assessment & Plan (06/23/2022 3:58 PM PARTS COUNTER SALESPERSON): Normocalcemic on arrival. Uncorrected Ca as high [...] -Apparently can get denosumab but would need ELECTRONIC DEVELOPMENT TECHNICIAN approval. Appreciate nephrology help sensipar not an [...] 06/23. Assessment & Plan (06/22/2022 4:15 PM PARTS COUNTER SALESPERSON): Normocalcemic on arrival. Uncorrected Ca as high [...] -Apparently can get denosumab but would need ELECTRONIC DEVELOPMENT TECHNICIAN approval. Appreciate nephrology help sensipar not an [...] iCa. Assessment & Plan (06/21/2022 3:27 PM PARTS COUNTER SALESPERSON): Normocalcemic on arrival. Uncorrected Ca as high [...] -Apparently can get denosumab but would need ELECTRONIC DEVELOPMENT TECHNICIAN approval. Appreciate nephrology help sensipar not an [...] response. Assessment & Plan (06/20/2022 6:15 PM PARTS COUNTER SALESPERSON): Normocalcemic on arrival. Uncorrected Ca as high [...] -Apparently can get denosumab but would need ELECTRONIC DEVELOPMENT TECHNICIAN approval. Appreciate nephrology help sensipar not an [...] approval. Assessment & Plan (06/16/2022 11:57 AM PARTS COUNTER SALESPERSON): Normocalcemic on arrival. Uncorrected Ca as high [...] today Assessment & Plan (06/15/2022 1:22 PM PARTS COUNTER SALESPERSON): Normocalcemic on arrival. Uncorrected Ca as high [...] out. Assessment & Plan (06/14/2022 2:26 PM PARTS COUNTER SALESPERSON): Normocalcemic on arrival. Uncorrected Ca as high [...] low level hyperCa. Recommend continued NPO by [facility] 06/08. - Continue water flushes per tube (300 q4). - Ca++ increased today: 12.1 (11.9). - if Cr continues to downtrend may be able to consider bisphosphonate. 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 Recommending ordering cosyntropin to rule out adrenal insufficiency. Assessment & Plan (06/13/2022 4:03 PM PARTS COUNTER SALESPERSON): Normocalcemic on arrival. Uncorrected Ca as high [...] low level hyperCa. Recommend continued NPO by [facility] 06/08. - Continue water flushes per tube (300 q4). - Ca++ decreased today: 11.9 (12.8). - if Cr continues to downtrend may be able to consider bisphosphonate. - Continue to monitor Assessment & Plan (06/12/2022 6:20 PM PARTS COUNTER SALESPERSON): Normocalcemic on arrival. Uncorrected Ca as high [...] low level hyperCa. Recommend continued NPO by [facility] 06/08. - cont water per tube (300 [...] supplementation. Assessment & Plan (06/11/2022 4:35 PM PARTS COUNTER SALESPERSON): Normocalcemic on arrival. Uncorrected Ca as high [...] low level hyperCa. Recommend continued NPO by [facility] 06/08. - cont water per tube (300 [...] supplementation. Assessment & Plan (06/10/2022 3:28 PM PARTS COUNTER SALESPERSON): Normocalcemic on arrival. Uncorrected Ca as high [...] supplementation. Assessment & Plan (06/10/2022 9:27 AM PARTS COUNTER SALESPERSON): Normocalcemic on arrival. Uncorrected Ca as high [...] level hyperCa. Advanced tolerance of PO by [facility] 06/08. - cont water per tube (300 [...] supplementation. Assessment & Plan (06/08/2022 4:09 PM PARTS COUNTER SALESPERSON): Normocalcemic on arrival. Uncorrected Ca as high [...] supplementation. Assessment & Plan (06/07/2022 11:04 AM PARTS COUNTER SALESPERSON): Normocalcemic on arrival. Uncorrected Ca as high [...] supplementation. Assessment & Plan (06/06/2022 6:40 PM PARTS COUNTER SALESPERSON): Normocalcemic on arrival. Uncorrected Ca as high [...] supplementation. Assessment & Plan (06/05/2022 1:59 PM PARTS COUNTER SALESPERSON): - Normocalcemic on arrival. Uncorrected Ca as [...] now Assessment & Plan (06/04/2022 11:09 AM PARTS COUNTER SALESPERSON): - Normocalcemic on arrival. Uncorrected Ca as [...] considered Assessment & Plan (06/03/2022 2:56 PM PARTS COUNTER SALESPERSON): - Normocalcemic on arrival. Uncorrected Ca as [...] 11.4 Assessment & Plan (06/02/2022 2:25 PM PARTS COUNTER SALESPERSON): - Normocalcemic on arrival. Uncorrected Ca as [...] IVF Assessment & Plan (06/01/2022 2:18 PM PARTS COUNTER SALESPERSON): - Normocalcemic on arrival. Uncorrected Ca as [...] d/c Assessment & Plan (05/31/2022 2:57 PM PARTS COUNTER SALESPERSON): - Normocalcemic on arrival. Uncorrected Ca as [...] stable/downtrending Assessment & Plan (05/30/2022 2:01 PM PARTS COUNTER SALESPERSON): - Normocalcemic on arrival. Uncorrected Ca as [...] improve Assessment & Plan (05/29/2022 3:13 PM PARTS COUNTER SALESPERSON): - Normocalcemic on arrival. Uncorrected Ca as [...] improve Assessment & Plan (05/28/2022 1:52 PM PARTS COUNTER SALESPERSON): - Normocalcemic on arrival. Uncorrected Ca as [...] improve Assessment & Plan (05/27/2022 3:52 PM PARTS COUNTER SALESPERSON): - Normocalcemic on arrival. Uncorrected Ca as [...] today Assessment & Plan (05/26/2022 1:19 PM PARTS COUNTER SALESPERSON): - Normocalcemic on arrival. Uncorrected Ca as [...] IVF Assessment & Plan (05/27/2022 3:53 PM PARTS COUNTER SALESPERSON): - Has been hypo- and hypernatremic during course Sodium now normal, cont to monitor daily BMP Assessment & Plan (05/26/2022 1:19 PM PARTS COUNTER SALESPERSON): - Has been hypo- and hypernatremic during course Sodium now normal, cont to monitor daily BMP Cervical stenosis of spine 09/19/2021 Overview (09/19/2021): Added automatically from request for surgery [id number] Assessment & Plan (11/10/2022 9:33 AM CDT): [...] need NSGY clinic [place]; [facility]; Dr. Casas no longer at [facility] Assessment & Plan (06/26/2022 5:11 PM CDT): Presented for elective C 3-5 ACDF and C3-7 posterior fusion on 03/17/22. Sutures out. NSurg f/u appreciated. Plan MRI c/t spine as above, assess for structural or occult infection (unlikely). Touch base with neurosurgery when imaging available Elevated ESR, CRP. Will need NSGY clinic OP follow up at [place]. Surgical incision healed well. No muscular spasticity [...] need NSGY clinic OP follow up at [place]. Surgical incision healed well. No muscular spasticity noted on LE exam. Bilateral strength intact. Therapy per neurosurgery, if able to participate, currently doesn't follow commands. Assessment & Plan (06/24/2022 5:04 PM PARTS COUNTER SALESPERSON): Presented for elective C 3-5 ACDF and C3-7 posterior fusion on 03/17/22. Sutures out. NSurg f/u appreciated. Plan MRI c/t spine as above, assess for structural or occult infection (unlikely). Will need NSGY clinic OP follow up at [place]. Surgical incision healed well. No muscular spasticity noted on LE exam. Bilateral strength intact. Therapy per neurosurgery, if able to participate, currently doesn't follow commands. Assessment & Plan (06/23/2022 3:49 PM PARTS COUNTER SALESPERSON): Presented for elective C 3-5 ACDF and C3-7 posterior fusion on 03/17/22. Sutures out. NSurg f/u appreciated. Will need NSGY clinic OP follow up at [place]. Surgical incision healed well. No muscular spasticity noted on LE exam. Bilateral strength intact. Therapy per neurosurgery, if able to participate, currently doesn't follow commands. Assessment & Plan (06/22/2022 4:10 PM PARTS COUNTER SALESPERSON): Presented for elective C 3-5 ACDF and C3-7 posterior fusion on 03/17/22. Sutures out. Will need NSGY clinic OP follow up at [place]. Surgical incision healed well. No muscular spasticity noted on LE exam. Bilateral strength intact. Therapy per neurosurgery, if able to participate, currently doesn't follow commands. Assessment & Plan (06/21/2022 3:24 PM PARTS COUNTER SALESPERSON): Presented for elective C 3-5 ACDF and C3-7 posterior fusion on 03/17/22. Sutures out. Will need NSGY clinic OP follow up at [place]. Surgical incision healed well. No muscular spasticity noted on LE exam. Therapy per neurosurgery, if able to participate. Assessment & Plan (06/20/2022 6:10 PM PARTS COUNTER SALESPERSON): Presented for elective C 3-5 ACDF and C3-7 posterior fusion on 03/17/22. Sutures out. Will need NSGY clinic OP follow up at [place]. Surgical incision healed well. No muscular spasticity noted on LE exam. Therapy per neurosurgery, if able to participate. Assessment & Plan (06/16/2022 11:56 AM PARTS COUNTER SALESPERSON): Presented for elective C 3-5 ACDF and C3-7 posterior fusion on 03/17/22. Sutures out. Will need NSGY clinic OP follow up at [place]. Surgical incision healed well. No muscular spasticity noted on LE exam. Therapy per neurosurgery, if able to participate. Assessment & Plan (06/15/2022 1:19 PM PARTS COUNTER SALESPERSON): Presented for elective C 3-5 ACDF and C3-7 posterior fusion on 03/17/22. Sutures out. Will need NSGY clinic OP follow up at [place]. Surgical incision healed well. No muscular spasticity noted on LE exam. Therapy per neurosurgery, if able to participate. Assessment & Plan (06/14/2022 2:19 PM PARTS COUNTER SALESPERSON): Presented for elective C 3-5 ACDF and C3-7 posterior fusion on 03/17/22. Sutures out. Will need NSGY clinic OP follow up at [place]. Surgical incision healed well. No muscular spasticity noted on LE exam. Therapy per neurosurgery, if able to participate. Assessment & Plan (06/13/2022 3:58 PM PARTS COUNTER SALESPERSON): Presented for elective C 3-5 ACDF and C3-7 posterior fusion on 03/17/22. Sutures out. Will need NSGY clinic OP follow up at [place]. Surgical incision healed well. No muscular spasticity noted on LE exam. Therapy per neurosurgery, if able to participate. Assessment & Plan (06/12/2022 6:18 PM PARTS COUNTER SALESPERSON): Presented for elective C 3-5 ACDF and C3-7 posterior fusion on 03/17/22. Sutures out. Will need NSGY clinic OP follow up at [place]. Surgical incision healed well. No muscular spasticity noted on LE exam. Therapy per neurosurgery, if able to participate. Plan DC to SNF once bed available. Assessment & Plan (06/11/2022 4:33 PM PARTS COUNTER SALESPERSON): Presented for elective C 3-5 ACDF and C3-7 posterior fusion on 03/17/22. Sutures out. Will need NSGY clinic OP follow up at [place]. Surgical incision healed well. No muscular spasticity noted on exam. Therapy per neurosurgery. Plan DC to SNF once bed available. Assessment & Plan (06/10/2022 3:23 PM PARTS COUNTER SALESPERSON): Presented for elective C 3-5 ACDF and C3-7 posterior fusion on 03/17/22. Sutures out. Will need NSGY clinic OP follow up at [place]. Surgical incision healing well. No muscular spasticity noted on exam. Therapy per neurosurgery. Plan DC to SNF once bed available. Assessment & Plan (06/10/2022 9:24 AM PARTS COUNTER SALESPERSON): Presented for elective C 3-5 ACDF and C3-7 posterior fusion on 03/17/22. Sutures out. Will need NSGY clinic OP follow up at [place]. Surgical incision healing well. No muscular spasticity noted on exam. Therapy per neurosurgery. Plan DC to SNF Assessment & Plan (06/08/2022 3:56 PM PARTS COUNTER SALESPERSON): Presented for elective C 3-5 ACDF and C3-7 posterior fusion on 03/17/22. Sutures out. Will need NSGY clinic OP follow up at [place]. Surgical incision healing well. No muscular spasticity noted on exam. Assessment & Plan (06/07/2022 10:57 AM PARTS COUNTER SALESPERSON): Presented for elective C 3-5 ACDF and C3-7 posterior fusion on 03/17/22. Sutures out. Will need NSGY clinic OP follow up at [place]. Surgical incision healing well. No muscular spasticity noted on exam. Assessment & Plan (06/06/2022 6:33 PM PARTS COUNTER SALESPERSON): Presented for elective C 3-5 ACDF and C3-7 posterior fusion on 03/17. Sutures out. Will need NSGY follow up at [place]. Surgical incision healing well. No muscular spasticity noted on exam. Assessment & Plan (06/05/2022 2:02 PM PARTS COUNTER SALESPERSON): - Presented for elective C 3-5 ACDF and C3-7 posterior fusion on 03/17. Sutures out. Will need NSGY follow up at [place]. Assessment & Plan (05/31/2022 2:57 PM PARTS COUNTER SALESPERSON): - Presented for elective C 3-5 ACDF and C3-7 posterior fusion on 03/17. Sutures out. Will need NSGY follow up at [place]. Assessment & Plan (05/30/2022 2:04 PM PARTS COUNTER SALESPERSON): - Presented for elective C 3-5 ACDF and C3-7 posterior fusion on 03/17. Sutures out. Will need NSGY follow up at [place]. Assessment & Plan (05/29/2022 3:13 PM PARTS COUNTER SALESPERSON): - Presented for elective C 3-5 ACDF and C3-7 posterior fusion on 03/17. Sutures out. Will need NSGY follow up at [place]. Assessment & Plan (05/28/2022 1:53 PM PARTS COUNTER SALESPERSON): - Presented for elective C 3-5 ACDF and C3-7 posterior fusion on 03/17. Sutures out. Will need NSGY follow up at [place]. Assessment & Plan (05/27/2022 3:53 PM PARTS COUNTER SALESPERSON): - Presented for elective C 3-5 ACDF and C3-7 posterior fusion on 03/17. Sutures out. Will need NSGY follow up at [place]. Assessment & Plan (05/25/2022 3:16 PM PARTS COUNTER SALESPERSON): - Presented for elective C 3-5 ACDF and C3-7 posterior fusion on 03/17. Sutures out. Will need NSGY follow up at [place]. Strangulated inguinal hernia 09/19/2021 Overview (04/09/2022): Added automatically from request for surgery [id number] Assessment & Plan (08/16/2022 5:36 PM CDT): [...] stranding. Assessment & Plan (06/23/2022 4:00 PM PARTS COUNTER SALESPERSON): S/p ex lap and repair 04/09. Had evidence of intestinal ischemia. Well healed incision. -Still NPO, swallow study redone given his being more awake, but speech recommends continued NPO status. On J tube feeds. Assessment & Plan (06/22/2022 4:16 PM PARTS COUNTER SALESPERSON): S/p ex lap and repair 04/09. Had evidence of intestinal ischemia. Well healed incision. -Still NPO, swallow study redone given his being more awake, but speech recommends continued NPO status. Assessment & Plan (06/21/2022 3:27 PM PARTS COUNTER SALESPERSON): S/p ex lap and repair 04/09. Had evidence of intestinal ischemia. Well healed incision. -Still NPO, swallow study redone given his being more awake, but speech recommends continued NPO status. Assessment & Plan (06/20/2022 6:16 PM PARTS COUNTER SALESPERSON): S/p ex lap and repair 04/09. Had evidence of intestinal ischemia. Well healed incision. -Still NPO, swallow study redone given his being more awake, but speech recommends continued NPO status. Assessment & Plan (06/16/2022 11:56 AM PARTS COUNTER SALESPERSON): S/p ex lap and repair 04/09. Had evidence of intestinal ischemia. Well healed incision. -Tolerating TF at goal per Gtube. Nutritional needs appear to be getting met. -Remains NPO per speech follow up on 06/14. Ok to do ice chips. Assessment & Plan (06/15/2022 1:20 PM PARTS COUNTER SALESPERSON): S/p ex lap and repair 04/09. Had evidence of intestinal ischemia. Well healed incision. -Tolerating TF at goal per Gtube. Nutritional needs appear to be getting met. -Remains NPO per speech follow up on 06/14. Ok to do ice chips. Assessment & Plan (06/14/2022 2:20 PM PARTS COUNTER SALESPERSON): S/p ex lap and repair 04/09. Had evidence of intestinal ischemia. Well healed incision. -Tolerating TF at goal per Gtube. Nutritional needs appear to be getting met. -Remains NPO per speech follow up on 06/08. Ok to do ice chips. Assessment & Plan (06/13/2022 3:59 PM PARTS COUNTER SALESPERSON): S/p ex lap and repair 04/09. Had evidence of intestinal ischemia. Well healed incision. -Tolerating TF at goal per Gtube. Nutritional needs appear to be getting met. -Remains NPO per speech follow up on 06/08. Assessment & Plan (06/12/2022 6:20 PM PARTS COUNTER SALESPERSON): S/p ex lap and repair 04/09. Had evidence of intestinal ischemia. Well healed incision. - tolerating TF per Gtube. Nutritional needs appear to be getting met. -Remains NPO per speech f/u 06/08. Billing statement I have reviewed electrolytes, K 3.6, ca 12.5. Discussed with RN and no tube feed residuals. Plan strict aspiration precautions, further advance diet and adjust tube feeds per motel food service supervisor. Plan to recheck bed weight. Assessment & Plan (06/11/2022 4:35 PM PARTS COUNTER SALESPERSON): S/p ex lap and repair 04/09. Had evidence of intestinal ischemia. Well healed incision. - tolerating TF per Gtube. Nutritional needs appear to be getting met. -Remains NPO per speech f/u 06/08. Billing statement I have reviewed electrolytes, K 3.6, ca 12.5. Discussed with RN and no tube feed residuals. Plan strict aspiration precautions, further advance diet and adjust tube feeds per motel food service supervisor. Plan to recheck bed weight. Assessment & Plan (06/10/2022 3:30 PM PARTS COUNTER SALESPERSON): S/p ex lap and repair 04/09. Had evidence of intestinal ischemia. Well healed incision. - tolerating TF per Gtube. Nutritional needs appear to be getting met. -Remains NPO per speech f/u 06/08. Billing statement I have reviewed electrolytes, K 3.6, ca 12.8. Discussed with RN and no tube feed residuals. Plan strict aspiration precautions, further advance diet and adjust tube feeds per motel food service supervisor. Plan to recheck bed weight. Assessment & Plan (06/10/2022 9:27 AM PARTS COUNTER SALESPERSON): S/p ex lap and repair 04/09. Had evidence of intestinal ischemia. Well healed incision. - tolerating TF per Gtube. Nutritional needs appear to be getting met. - ADAT per speech. Billing statement I have reviewed electrolytes, K 3.3, ca 10.6. Discussed with RN and no tube feed residuals. Plan strict aspiration precautions, further advance diet and adjust tube feeds per motel food service supervisor. Plan to recheck bed weight. Assessment & Plan (06/08/2022 4:11 PM PARTS COUNTER SALESPERSON): S/p ex lap and repair 04/09. Had evidence of intestinal ischemia. Well healed incision. - tolerating TF per Gtube. Nutritional needs appear to be getting met. - ADAT per speech. Billing statement I have reviewed electrolytes, K 3.3, ca 10.6. Discussed with RN and no tube feed residuals. Plan further advance diet and adjust tube feeds per motel food service supervisor. Plan to recheck bed weight. Assessment & Plan (06/07/2022 11:08 AM PARTS COUNTER SALESPERSON): S/p ex lap and repair 04/09. Had [...] weight. Assessment & Plan (06/06/2022 6:41 PM PARTS COUNTER SALESPERSON): - S/p ex lap and repair 04/09. Had evidence of intestinal ischemia. Well healed incision. - tolerating TF per Gtube. - NPO per speech. Billing statement I have reviewed electrolytes, K 3.3, ca 10.6. Discussed with RN and no tube feed residuals. Plan to continue tube feeds at current rate. Assessment & Plan (06/05/2022 2:01 PM PARTS COUNTER SALESPERSON): - S/p ex lap and repair 04/09. Had evidence of intestinal ischemia. Well healed incision. - tolerating TF - NPO per speech Assessment & Plan (06/04/2022 11:09 AM PARTS COUNTER SALESPERSON): - S/p ex lap and repair 04/09. Had evidence of intestinal ischemia. Well healed incision. - tolerating TF - NPO per speech Assessment & Plan (06/02/2022 2:26 PM PARTS COUNTER SALESPERSON): - S/p ex lap and repair 04/09. Had evidence of intestinal ischemia. Well healed incision. - tolerating TF - NPO per speech Assessment & Plan (06/01/2022 2:18 PM PARTS COUNTER SALESPERSON): - S/p ex lap and repair 04/09. Had evidence of intestinal ischemia. Well healed incision. - tolerating TF - NPO per speech Assessment & Plan (05/31/2022 2:57 PM PARTS COUNTER SALESPERSON): - S/p ex lap and repair 04/09. Had evidence of intestinal ischemia. Well healed incision. - tolerating TF - NPO per speech Assessment & Plan (05/30/2022 2:04 PM PARTS COUNTER SALESPERSON): - S/p ex lap and repair 04/09. Had evidence of intestinal ischemia. Well healed incision. - tolerating TF - NPO 2/2 mental status Assessment & Plan (05/29/2022 3:13 PM PARTS COUNTER SALESPERSON): - S/p ex lap and repair 04/09. Had evidence of intestinal ischemia. Well healed incision. Assessment & Plan (05/28/2022 1:53 PM PARTS COUNTER SALESPERSON): - S/p ex lap and repair 04/09. Had evidence of intestinal ischemia. Well healed incision. Assessment & Plan (05/27/2022 3:53 PM PARTS COUNTER SALESPERSON): - S/p ex lap and repair 04/09. Had evidence of intestinal ischemia. Well healed incision. Assessment & Plan (05/25/2022 3:17 PM PARTS COUNTER SALESPERSON): - S/p ex lap and repair 04/09. Had evidence of intestinal ischemia. Well healed incision. Age-related osteoporosis wit hout current pathological fracture 08/23/2021 Assessment & Plan (10/25/2021 3:35 PM CDT): Not well controlled, patient also has hypo vitamin-D Will start alendronate 70 mg weekly Continue ergocalciferol 40513 units weekly Ensure calcium approximately 1000 mg [...] (01/27/2021): Added automatically from request for surgery [id number] Bilateral primary osteoarthritis of knee 021 Assessment [...] ambulation Assessment & Plan (04/29/2021 11:06 AM PARTS COUNTER SALESPERSON): Stable, patient reports occasional episodes of vertigo, [...] Stable. Assessment & Plan (06/24/2022 5:04 PM PARTS COUNTER SALESPERSON): History of COPD. Managed with Budesonide nebs and PRN albuterol. Prior exacerbation treatment this stay, currently controlled. Currently on RA, no wheezing. Unable to follow commands for MDI, continue nebulizers with RT and doing well. Stable. Assessment & Plan (06/23/2022 3:49 PM PARTS COUNTER SALESPERSON): History of COPD. Managed with Budesonide nebs and PRN albuterol. Prior exacerbation treatment this stay, currently controlled. Currently on RA, no wheezing. -Unable to follow commands for MDI, continue nebulizers with RT and doing well. Assessment & Plan (06/22/2022 4:10 PM PARTS COUNTER SALESPERSON): History of COPD. Managed with Budesonide nebs and PRN albuterol. Prior exacerbation treatment this stay, currently controlled. Currently on RA, no wheezing. -Unable to follow commands for MDI, continue nebulizers and doing well. Assessment & Plan (06/21/2022 3:24 PM PARTS COUNTER SALESPERSON): History of COPD. Managed with Budesonide nebs and PRN albuterol. Prior exacerbation treatment this stay, currently controlled. Currently on RA, no wheezing. -Unable to follow commands for MDI, continue nebs. Doing well. Assessment & Plan (06/20/2022 6:10 PM PARTS COUNTER SALESPERSON): History of COPD. Managed with Budesonide nebs and PRN albuterol. Prior exacerbation treatment this stay, currently controlled. Currently on RA, no wheezing. -Unable to follow commands for MDI, continue nebs. Doing well. Assessment & Plan (06/16/2022 11:50 AM PARTS COUNTER SALESPERSON): History of COPD. Managed with Budesonide nebs and PRN albuterol. Prior exacerbation treatment this stay, currently controlled. Currently on RA, no wheezing. -Unable to follow commands for MDI, continue nebs. Assessment & Plan (06/15/2022 1:18 PM PARTS COUNTER SALESPERSON): History of COPD. Managed with Budesonide nebs and PRN albuterol. Prior exacerbation treatment this stay, currently controlled. Currently on RA, no wheezing. -Unable to follow commands for MDI, continue nebs. Assessment & Plan (06/14/2022 2:19 PM PARTS COUNTER SALESPERSON): History of COPD. Managed with Budesonide nebs and PRN albuterol. Prior exacerbation treatment this stay, currently controlled. Currently on RA, no wheezing. -Unable to follow commands for MDI, continue nebs. Assessment & Plan (06/13/2022 3:55 PM PARTS COUNTER SALESPERSON): History of COPD. Managed with Budesonide nebs and PRN albuterol. Prior exacerbation treatment this stay, currently controlled. Currently on RA, no wheezing. -Unable to follow commands for MDI, continue nebs. Assessment & Plan (06/12/2022 6:18 PM PARTS COUNTER SALESPERSON): Hx COPD. Managed Budesonide nebs and PRN [...] plan. Assessment & Plan (06/11/2022 4:33 PM PARTS COUNTER SALESPERSON): Hx COPD. Managed Budesonide nebs and PRN [...] plan. Assessment & Plan (06/10/2022 3:24 PM PARTS COUNTER SALESPERSON): Hx COPD. Managed Budesonide nebs and PRN albuterol. Prior exacerbation treatment this stay, currently controlled On 2L-RA. Unable to follow commands for MDI, continue nebs. Billing statement Reviewed O2 requirements last 24hrs and recent chest imaging, exam without wheezing but encephalopathy limits use of MDIs. Plan to continue nebs as prescribed. No change in current plan. Assessment & Plan (06/10/2022 9:25 AM PARTS COUNTER SALESPERSON): Hx COPD. Managed Budesonide nebs and PRN albuterol. Prior exacerbation treatment this stay, currently controlled On 2L-RA. Billing statement Reviewed O2 requirements last 24hrs and recent chest imaging, exam without wheezing but encephalopathy limits use of MDIs. Plan to continue nebs as prescribed. No change in current plan. Assessment & Plan (06/08/2022 4:03 PM PARTS COUNTER SALESPERSON): Hx COPD. Managed Budesonide nebs and PRN albuterol. Prior exacerbation treatment this stay, currently controlled On 2L-RA. Billing statement Reviewed O2 requirements last 24hrs and recent chest imaging, exam without wheezing but encephalopathy limits use of MDIs. Plan to continue nebs as prescribed. Assessment & Plan (06/07/2022 11:02 AM PARTS COUNTER SALESPERSON): - Budesonide nebs and PRN albuterol. Prior exacerbation treatment this stay, currently controlled On RA Billing statement Reviewed O2 requirements last 24hrs and recent chest imaging, exam without wheezing but encephalopathy limits use of MDIs. Plan to continue nebs as prescribed. Assessment & Plan (06/06/2022 6:34 PM PARTS COUNTER SALESPERSON): - Budesonide nebs and PRN albuterol. Prior exacerbation treatment this stay, currently controlled On RA Billing statement Reviewed O2 requirements and recent chest imaging. Plan DC continuous O2 sat monitoring. Assessment & Plan (06/05/2022 2:02 PM PARTS COUNTER SALESPERSON): - Budesonide nebs and PRN albuterol. Prior exacerbation treatment this stay, currently controlled On RA Assessment & Plan (05/30/2022 2:04 PM PARTS COUNTER SALESPERSON): - Budesonide nebs and PRN albuterol. Prior exacerbation treatment this stay, currently controlled On RA Assessment & Plan (05/29/2022 3:13 PM PARTS COUNTER SALESPERSON): - Budesonide nebs and PRN albuterol. Prior exacerbation treatment this stay, currently controlled On RA Assessment & Plan (05/28/2022 1:53 PM PARTS COUNTER SALESPERSON): - Budesonide nebs and PRN albuterol. Prior exacerbation treatment this stay, currently controlled On RA Assessment & Plan (05/27/2022 3:53 PM PARTS COUNTER SALESPERSON): - Budesonide nebs and PRN albuterol. Prior exacerbation treatment this stay, currently controlled On RA Assessment & Plan (05/26/2022 1:17 PM PARTS COUNTER SALESPERSON): - Budesonide nebs and PRN albuterol. Prior [...] Ellipta Assessment & Plan (06/07/2021 4:52 PM PARTS COUNTER SALESPERSON): Stable, well controlled; quit smoking approximately 24 years ago Active in pulmonary rehab, walking for up to 60 minutes at a time new line rare use of rescue inhaler Continue Trelegy Ellipta 1 puff daily Assessment & Plan (04/29/2021 11:07 AM PARTS COUNTER SALESPERSON): Stable, well controlled; patient reports he does get dyspneic especially significant exertion Follows with pulmonology for management Continue Trelegy Ellipta 1 puff daily, albuterol p.r.n. for dyspnea Assessment & Plan (02/21/2021 8:31 PM PARTS COUNTER SALESPERSON): Continues to have significant cough, barking cough; [...] daily Assessment & Plan (06/07/2021 4:51 PM PARTS COUNTER SALESPERSON): Stable, well controlled; continue to monitor Assessment & Plan (04/29/2021 11:07 AM PARTS COUNTER SALESPERSON): Stable, well controlled; patient reports occasional episodes of nocturia x1 Continue finasteride 5 mg daily Assessment & Plan (05/06/2020 12:57 PM PARTS COUNTER SALESPERSON): Patient does report increased urine frequency. UA [...] issues. Assessment & Plan (05/06/2020 12:56 PM PARTS COUNTER SALESPERSON): Continue meclizine prn. Assessment & Plan (04/08/2020 3:22 AM PARTS COUNTER SALESPERSON): Patient feels ataxic but [id number] and [id number] were normal. MRI is pending. Neurology has been consulted. Meclizine has not helped. Fall precautions. May need PT after MRI is completed. Assessment & Plan (04/07/2020 1:52 PM PARTS COUNTER SALESPERSON): With new lethargy, orthostatic hypotension- I believe [...] 03/04/2019 Assessment & Plan (03/04/2019 2:55 PM PARTS COUNTER SALESPERSON): Will do emg/ncs . Recommended cock-up wrist [...] monitor. Assessment & Plan (06/24/2022 5:05 PM PARTS COUNTER SALESPERSON): Continue amlodipine 10 mg daily. Discontinued home HCTZ on admit. On coreg and uptitrated to 25 BID on 06/05/22. Volume stable off dialysis. No peripheral edema. -Mostly normotensive, will continue to monitor. Assessment & Plan (06/23/2022 3:49 PM PARTS COUNTER SALESPERSON): Continue amlodipine 10 mg daily. Discontinued home HCTZ on admit. On coreg and uptitrated to 25 BID on 06/05/22. Volume stable off dialysis. -Mostly normotensive, will continue to monitor. Assessment & Plan (06/22/2022 4:11 PM PARTS COUNTER SALESPERSON): Continue amlodipine 10 mg daily. Discontinued home HCTZ on admit. On coreg and uptitrated to 25 BID on 06/05/22. Volume stable off dialysis. -Mostly normotensive, will continue to monitor. Assessment & Plan (06/21/2022 3:25 PM PARTS COUNTER SALESPERSON): Continue amlodipine 10 mg daily. Discontinued home HCTZ on admit. On coreg and uptitrated to 25 BID on 06/05. Volume stable. -Mostly normotensive, will continue to monitor. Assessment & Plan (06/20/2022 6:10 PM PARTS COUNTER SALESPERSON): -Continue amlodipine 10 mg daily -Continue coreg. Uptitrated coreg 25 BID on 06/05. Volume stable. -Mostly normotensive, will continue to monitor. Assessment & Plan (06/16/2022 11:50 AM PARTS COUNTER SALESPERSON): -Continue amlodipine 10 mg daily -Continue coreg. Uptitrated coreg 25 BID on 06/05. -Mostly normotensive, will continue to monitor. Assessment & Plan (06/15/2022 1:17 PM PARTS COUNTER SALESPERSON): -Continue amlodipine 10 mg daily -Continue coreg. Uptitrated coreg 25 BID on 06/05. -Mostly normotensive, will continue to monitor. Assessment & Plan (06/14/2022 2:19 PM PARTS COUNTER SALESPERSON): -Continue amlodipine 10 mg daily -Continue coreg. Uptitrated coreg 25 BID on 06/05. -Mostly normotensive, will continue to monitor. Assessment & Plan (06/13/2022 3:54 PM PARTS COUNTER SALESPERSON): -Continue amlodipine 10 mg daily -Continue coreg. Uptitrated coreg 25 BID on 06/05. -Mostly normotensive, will continue to monitor. Assessment & Plan (06/12/2022 6:19 PM PARTS COUNTER SALESPERSON): Cont amlodipine, coreg, uptitrated coreg to 25 bid given persistent HTN 2/20. Improved trend, continue dosing at this level. Billing statement Plan continue dual agent control. Plan monitor renal function as OP. Assessment & Plan (06/11/2022 4:34 PM PARTS COUNTER SALESPERSON): Cont amlodipine, coreg, uptitrated coreg to 25 bid given persistent HTN 2/20. Improved trend, continue dosing at this level. Billing statement Plan continue dual agent control. Plan monitor renal function. Assessment & Plan (06/10/2022 3:25 PM PARTS COUNTER SALESPERSON): Cont amlodipine, coreg, uptitrated coreg to 25 bid given persistent HTN 2/20. Improved trend, continue dosing at this level. Billing statement Plan continue dual agent control. Plan monitor renal function. Assessment & Plan (06/10/2022 9:25 AM PARTS COUNTER SALESPERSON): Cont amlodipine, coreg, uptitrated coreg to 25 bid given persistent HTN 2/20. Improved trend, continue dosing at this level. Billing statement Plan continue dual agent control. Assessment & Plan (06/08/2022 4:04 PM PARTS COUNTER SALESPERSON): Cont amlodipine, coreg, uptitrated coreg to 25 bid given persistent HTN 2/20. Improved trend, continue dosing at this level. Billing statement Plan dual agent control. Assessment & Plan (06/07/2022 11:03 AM PARTS COUNTER SALESPERSON): Cont amlodipine, coreg, uptitrated coreg to 25 bid given persistent HTN 2/20. Improved trend, continue dosing at this level. Assessment & Plan (06/06/2022 6:35 PM PARTS COUNTER SALESPERSON): Cont amlodipine, coreg, uptitrated coreg to 25 bid given persistent HTN 2/20. Improved trend, will hold dosing at this level. Assessment & Plan (06/05/2022 2:02 PM PARTS COUNTER SALESPERSON): Cont amlodipine, coreg, uptitrated coreg to 25 bid given persistent HTN 06/05 Assessment & Plan (05/30/2022 2:05 PM PARTS COUNTER SALESPERSON): Cont amlodipine, coreg Assessment & Plan (05/29/2022 3:13 PM PARTS COUNTER SALESPERSON): Cont current meds Assessment & Plan (05/28/2022 1:53 PM PARTS COUNTER SALESPERSON): Cont current meds Assessment & Plan (05/27/2022 3:53 PM PARTS COUNTER SALESPERSON): Cont current meds Assessment & Plan (05/26/2022 1:17 PM PARTS COUNTER SALESPERSON): Cont current meds Assessment & Plan (12/20/2021 [...] mg Assessment & Plan (06/07/2021 4:50 PM PARTS COUNTER SALESPERSON): Stable, well controlled; blood pressure at target today Continue hydrochlorothiazide 25 mg daily Assessment & Plan (04/29/2021 11:04 AM PARTS COUNTER SALESPERSON): Controlled; blood pressure at target Continue amlodipine 10 mg, to chlorothiazide 25 mg, losartan 100 mg Assessment & Plan (07/20/2020 7:39 AM CDT): Rechecked in office and was 136/78. Will continue to monitor. May need to change medication. Pt also sees cardiology. Will see him back next month and will recheck Assessment & Plan (05/06/2020 12:55 PM PARTS COUNTER SALESPERSON): Presented with elevated BP. Presently well controlled. Continue home Amlodipine and Losartan. HCTZ is on hold as patient is currently on iv fluids. Assessment & Plan (04/08/2020 3:18 AM PARTS COUNTER SALESPERSON): Amlodipine and losartan have been resumed with hold parameters. Holding hydrochlorothiazide as it can cause vertigo. Assessment & Plan (03/24/2020 8:24 AM PARTS COUNTER SALESPERSON): Blood pressure is adequately controlled on current [...] recommended. Assessment & Plan (06/07/2021 4:51 PM PARTS COUNTER SALESPERSON): Stable, well controlled; continue sertraline 100 mg [...] change. Assessment & Plan (05/06/2020 12:54 PM PARTS COUNTER SALESPERSON): Continue home Prozac. Mood is stable at this time. Assessment & Plan (04/08/2020 3:18 AM PARTS COUNTER SALESPERSON): Continue SSRI Assessment & Plan (03/24/2020 8:24 AM PARTS COUNTER SALESPERSON): Stable on current medication. Continue fluoxetine as [...] mg Assessment & Plan (06/07/2021 4:50 PM PARTS COUNTER SALESPERSON): Stable, well controlled; no side effects from current medication Continue rosuvastatin 40 mg daily Assessment & Plan (04/29/2021 11:05 AM PARTS COUNTER SALESPERSON): Stable, well controlled LDL less than 100; continues to have elevated ASCVD risk score 24.8% Continue rosuvastatin 40 mg daily, good blood pressure control Assessment & Plan (05/06/2020 12:54 PM PARTS COUNTER SALESPERSON): Continue home statin Assessment & Plan (04/08/2020 3:18 AM PARTS COUNTER SALESPERSON): Continue Crestor Assessment & Plan (03/24/2020 8:24 AM PARTS COUNTER SALESPERSON): Lipid abnormalities are stable, reviewed previous lipid levels in [facility]. Pharmacotherapy as ordered. Order for [...] (Arexvy) 04/10/2023 Tdap 03/12/2018 ZOSTER Recombinant 12/25/2023,04/10/2023 Social History Tobacco Use Types Packs/Day Years [...] materials from doctor or pharmacy Sometimes 10/09/2022 [facility] Utilities Answer Date Recorded In the past [...] often do you attend chur ch or druze services? More than 4 times per year 06/20/2023 Do you belong to any clubs o r organizations such as spiritism groups, unions, fraternal or athletic groups, or [...] place to sleep or slept in a chcf (including now)? No 06/20/2023 Personal Safety Answer Date Recorded Have you ever been in or are you currently in a harmful physical or emotional relationship or is someone making you feel afraid or unsafe? Denies 12/04/2024 Sex and Gender Information Value Date Recorded Sex Assigned at Not on file Legal Sex Male 1:30 PM PARTS COUNTER SALESPERSON Gender Identity Male 02/21/2021 12:31 PM PARTS COUNTER SALESPERSON Sexual Orientation Straight 12/22/2020 11 :36 AM [...] Mass Index 32.26 12/31/2024 11:03 AM CDT Results * (ABNORMAL) eGFR (12/31/2024 11:57 AM [...] was last reviewed 2021. Testing performed by: [address] [address] Blood 12/31/2024 11:5 7 AM CDT 12/31/2024 7:16 PM CDT Nick Almanzar MD LAB BLOOD ORDERABLES Renata gonzalez Result [facility]ONA FRY ([place]) 1 [facility]ly [facility] Department [place] [address] * Differential, auto (12/31/2024 11:57 AM CDT) Neutrophil abs 4.58 1.50 - 6.50 K/cumm Comment:Testing performed by : [address] [address] Imm gran abs 0.01 0.00 - 0.10 K/cumm [facility] ([facility]) Comment:Testing performed by : [address] [address] Lymphocyte abs 1.10 0.80 - 3.30 K/cumm [facility] ([place]) Comment:Testing performed by : [address], [address] Monocyte abs 0.59 0.20 - 0.80 K/cumm [facility] ([place]) Comment:Testing performed by : [address], [address] Eosinophil abs 0.14 0.00 - 0.50 K/cumm [facility] ([place]) Comment:Testing performed by : [facility], [address] [place] [address]., [address] Basophil abs 0.01 0.00 - 0.10 K/cumm [facility] ([facility]) Comment:Testing performed by : [facility], [address] [place] [address]., [id number] Neutrophil pct 71.1 % [facility] ([place]) Comment: Interpretive Data Percent cell count reference ranges are not reported, since discordance with absolute values may lead to misinterpretation of CBC data. Current Interpretive Data was last revised on 2017. Testing performed by: [facility], [address] [place] [address]., [id number] Imm gran pct 0.2 % [facility] ([place]) Comment: Interpretive Data Percent cell count reference ranges are not reported, since discordance with absolute values may lead to misinterpretation of CBC data. Current Interpretive Data was last revised on 2017. Testing performed by: [facility], [address] [place] [address]., [address] Lymphocyte pct 17.1 % [facility] ([place]) Comment: Interpretive Data Percent cell count reference ranges are not reported, since discordance with absolute values may lead to misinterpretation of CBC data. Current Interpretive Data was last revised on 2017. Testing performed by: [facility], [address] [place] [address]., [id number] Monocyte pct 9.2 % [facility] ([place]) Comment: Interpretive Data Percent cell count reference ranges are not reported, since discordance with absolute values may lead to misinterpretation of CBC data. Current Interpretive Data was last revised on 2017. Testing performed by: [facility], [address] [place] [address]., [address] Eosinophil pct 2.2 % [facility] ([facility]) Comment: Interpretive Data Percent cell count reference ranges are not reported, since discordance with absolute values may lead to misinterpretation of CBC data. Current Interpretive Data was last revised on 2017. Testing performed by: [address] [address] Basophil pct 0.2 % [facility] ([place]) Comment: Interpretive Data Percent cell count reference ranges are not reported, since discordance with absolute values may lead to misinterpretation of CBC data. Current Interpretive Data was last revised on 2017. Testing performed by: [address], [address] Blood 12/31/2024 11:5 7 AM CDT 12/31/2024 7:03 PM CDT us Nick Almanzar MD LAB BLOOD ORDERABLES Renata gonzalez Result [facility] ([place]) 1 [facility] Department [place] [address] * (ABNORMAL) CBC with auto differential (12/31/2024 11:57 AM CDT) WBC 6.43 3.80 - 9.90 K/cumm Comment:Testing performed by : [address], [address] Hgb 13.2 13.0 - 17.5 g/dL [facility] ([place]) Comment:Testing performed by : [address], [address] Hct 43.8 38.9 - 50.3 % [facility] ([place]) Comment:Testing performed by : [address], [address] Plt 125(L) 150 - 400 K/cumm [facility] ([place]) Comment:Testing performed by : [address], [address] MPV 11.6 9.1 - 12.3 fL [facility] ([place]) Comment:Testing performed by : [address], [address] RBC 4.75 4.30 - 5.80 M/cumm [facility] ([place]) Comment:Testing performed by : [address], [address] MCV 92.2 81.3 - 96.4 fL [facility] ([place]) Comment:Testing performed by : [address], [address] MCH 27.8 27.1 - 33.3 pg [facility] ([place]) Comment:Testing performed by : [facility], [address] [place] [address], [address] MCHC 30.1(L) 32.3 - 35.7 g/dL [facility] ([place]) Comment:Testing performed by : [facility], [address] [place] [address], [address] RDW CV 15.4(H) 11.1 - 14.9 % [facility] ([place]) Comment:Testing performed by : [facility], [address] [place] [address], [address] RDW SD 52.8(H) 35.7 - 48.1 fL [facility] ([place]) Comment:Testing performed by : [facility], [address] [place] [address], [address] NRBC abs 0.00 0.00 - 0.01 K/cumm [facility] ([place]) Comment:Testing performed by : [facility], [address] [place] [address], [address] Blood 12/31/2024 11:5 7 AM CDT 12/31/2024 7:03 PM CDT us Nick Almanzar MD LAB BLOOD ORDERABLES Renata l Result Performing Organization Address City/[facility]/ZIP Co de Phone Number V[facility]NA[facility]ASHID [facility] ([place]) 1 [facility] Department [place] [address] * Hepatitis B core antibody, total Blood (12/31/2024 11:57 AM CDT) Hep B core IgG/IgM Nonreactive Nonreactive Comment:Testing performed by : [facility], [address] [facility] [place]., [address] Blood 12/31/2024 11:5 7 AM CDT 01/01/2025 10:21 AM CDT Nick lAmanzar MD LAB MICROBIOLOGY - GENERA L ORDERABLES Final Result [facility]ID [facility] ([place]) 1 [place] [address] * Vitamin D 25 hydroxy (12/31/2024 11:57 AM CDT) [facility] Vitamin D 25-OH 80 30 - 80 ng/mL Comment:Testing performed by : [facility], [address] [place] [address], [address] Blood 12/31/2024 11:5 7 AM CDT 12/31/2024 7:03 PM CDT Nick Almanzar MD LAB BLOOD ORDERABLES Renata l Result Performing Organization Address City/[facility]/ZIP Co de Phone Number [facility] FRY ([place]) 1 [place] [address] * Hepatitis B surface antibody (immune status) Blood (12/31/2024 11:57 AM CDT) [facility] HBsAb (immune status) Nonreactive Comment: Interpretive Data [...] last revised on 19. Testing performed by: [facility], [address] [place] [address]., [address] Blood 12/31/2024 11:5 7 AM CDT 12/31/2024 7:03 PM CDT Nick Almanzar MD LAB MICROBIOLOGY - GENERA L ORDERABLES Final Result [facility] FRY ([place]) 1 [place] [address] * Hepatitis B Surface Antigen Blood (12/31/2024 11:57 AM CDT) [facility] HepBsAg Nonreactive Nonreactive Comment:Testing performed by : [facility], [address] [place] [address]., [address] Blood 12/31/2024 11:5 7 AM CDT 12/31/2024 7:03 PM CDT us Nick Almanzar MD LAB MICROBIOLOGY - GENERA L ORDERABLES Final Result SHONA ANG ([place]) 1 [facility] Department [place] [address] * Lipid panel (12/31/2024 11:57 AM CDT) [...] last revised on 2017. Testing performed by: [address] [address] Triglycerides 124 <=149 mg/dL [facility] ([place]) [...] last revised on 2017. Testing performed by: [address] [place] [address] HDL 47 >=40 mg/dL SHONA Rodríguez ([place]) [...] last revised on 2017. Testing performed by: [facility], [address] [place] [address]., [address] LDL, calculated 78 <=129 mg/dL [facility] ([place]) Comment: Interpretive Data Ages < or = 19 years Acceptable: <110 mg/dL Borderline high: 110-129 mg/dL High: >or= 130 mg/dL Ages > or = 20 years Optimal: <100 mg/dL Near optimal: 100-129 mg/dL Borderline high: 130-159 mg/dL High: >160 mg/dL Calculated using the Remintgon LDL-C estimating equation. This equation was implemented on 2023. Prior to this date LDL-C was estimated using the Friedewald equation. Literature References: 1. Expert Panel on Integrated Guidelines for Cardiovascular Health and Risk Reduction in Children and Adolescents. Pediatrics 2011;128:S213 2. NCEP Expert Panel. Circulation 2004;110:227 3. Remington Santoyo et al. LUIS ARMANDO Cardiol. 2019August 14;5(5):540-548. doi: 10.1001/jamacardio.2020.0013 Current Interpretive Data was last revised on 2023. Testing performed by: [facility], [address] [place] [address]., [address] Non-HDL Cholesterol 100 mg/dL [facility] ([place]) [...] last revised on 2017. Testing performed by: [facility], [address] [place] [address]., [address] Chol/HDL ratio 3 [facility] ([place]) Comment:Testing performed by : [address], [address] Blood 12/31/2024 11:5 7 AM CDT 12/31/2024 7:03 PM CDT us Nick Almanzar MD LAB BLOOD ORDERABLES Renata gonzalez Result [facility] ([place]) 1 [facility] Department [place] [address] * (ABNORMAL) Comprehensive metabolic panel (12/31/2024 11:57 AM CDT) Sodium 143 135 - 145 mmol/L Comment:Testing performed by : [address], [address] Potassium, pl 4.4 3.3 - 4.9 mmol/L [facility] ([place]) Comment:Testing performed by : [address] [address] Chloride 107 97 - 110 mmol/L [facility] ([place]) Comment:Testing performed by : [address] [address] CO2 25 22 - 32 mmol/L [facility] ([place]) Comment:Testing performed by : [address], [address] Anion gap 11 2 - 15 mmol/L [facility] ([place]) Comment:Testing performed by : [address], [address] BUN 33(H) 6 - 25 mg/dL [facility] ([place]) Comment:Testing performed by : [address], [address] Creatinine 1.50(H) 0.80 - 1.30 mg/dL [facility] ([place]) Comment:Testing performed by : [address] [address] Glucose 94 70 - 199 mg/dL CERNER [...] was last revised 2022. Testing performed by: [address], [address] Calcium 9.9 8.5 - 10.3 mg/dL [facility] ([place]) Comment:Testing performed by : [address], [address] Bilirubin, total 0.2 0.1 - 1.2 mg/dL [facility] ([place]) Comment:Testing performed by : [address] [address] Protein, pl 6.6 6.5 - 8.5 g/dL [facility] ([place]) Comment:Testing performed by : [address], [address] Albumin 3.9 3.5 - 5.0 g/dL [facility] ([place]) Comment:Testing performed by : [address] [address] Alk phos 86 40 - 130 Units/L [facility] ([place]) Comment:Testing performed by : [address], [address] ALT 14 7 - 55 Units/L [facility] ([facility]) Comment:Testing performed by : [address], [address] AST 21 10 - 50 Units/L [facility] ([facility]) Comment:Testing performed by : [address], [address] Blood 12/31/2024 11:5 7 AM CDT 12/31/2024 7:03 PM CDT us Nick Almanzar MD LAB BLOOD ORDERABLES Renata gonzalez Result [facility] [place]) 1 [facility] Department [place] [address] * XR Foot Right 3 or More [...] Vicente Byrd M.D. KT: DIANN Report ID: [id number] Reading Location: [id number] Procedure Note Vicente Byrd MD - 12/04/2024 [...] Vicente Byrd M.D. KT: DIANN Report ID: [id number] Reading Location: [place] [address] Debra AVALOS IMG XR PROCEDURES Final Result * Sepsis Lactate w/ Reflex (12/04/2024 4:54 PM CDT) Sepsis Lactate 1.0 0.7 - 2.0 mmol/L Blood 12/04/2024 4:54 PM CDT 12/04/2024 4:58 PM CDT Debra AVALOS LAB BLOOD ORDERABLES Final Resu lt [facility] [place] 1 [facility] Department of Laboratories [place], [place] [id number] * (ABNORMAL) eGFR (12/04/2024 4:54 PM CDT) eGFR 46(L) >=60 mL/min/1. 73 m2 Comment: [...] BLOOD ORDERABLES Final Resu lt [facility] ([place]) 1 [facility] Department [place] [address] * Differential, auto (12/04/2024 4:54 PM CDT) [...] revised on 2017. Basophil pct 0.1 % [facility] ([place]) Comment: Interpretive Data Percent cell count reference ranges are not reported, since discordance with absolute values may lead to misinterpretation of CBC data. Current Interpretive Data was last revised on 2017. Blood 12/04/2024 4:54 PM CDT 12/04/2024 4:58 PM CDT us Debra AVALOS LAB BLOOD ORDERABLES Final Resu lt [facility] ([place]) 1 [facility] Department [place] [address] * (ABNORMAL) CBC with auto differential (12/04/2024 4:54 PM CDT) WBC 7.26 3.80 - 9.90 K/cumm Hgb 13.3 13.0 - 17.5 g/dL [facility] ([place]) Hct 41.2 38.9 - 50.3 % [facility] ([place]) Plt 146(L) 150 - 400 K/cumm [facility] ([place]) MPV 10.7 9.1 - 12.3 fL [facility] ([place]) RBC 4.74 4.30 - 5.80 M/cumm [facility] ([place]) MCV 86.9 81.3 - 96.4 fL [facility] ([place]) MCH 28.1 27.1 - 33.3 pg [facility] ([place]) MCHC 32.3 32.3 - 35.7 g/dL [facility] ([place]) RDW CV 14.6 11.1 - 14.9 % [facility] ([place]) RDW SD 46.5 35.7 - 48.1 fL [facility] NRBC abs 0.00 0.00 - 0.01 K/cumm [facility] ([facility]) Blood 12/04/2024 4:54 PM CDT 12/04/2024 4:58 PM CDT us Debra AVALOS LAB BLOOD ORDERABLES Final [facility] 1 [facility] Department [place] [address] * (ABNORMAL) Comprehensive metabolic panel (12/04/2024 4:54 PM CDT) Sodium 144 135 - 145 mmol/L [facility] Potassium, pl 3.7 3.3 - 4.9 mmol/L [facility] Chloride 110 97 - 110 mmol/L [facility] CO2 21(L) 22 - 32 mmol/L [facility] ([facility]) Anion gap 13 2 - 15 mmol/L [facility] BUN 29(H) 6 - 25 mg/dL [facility] Creatinine 1.54(H) 0.80 - 1.30 mg/dL [facility] ([facility]) Glucose 105 70 - 199 mg/dL [facility] Comment: Interpretive Data Fasting glucose [...] AVALOS LAB BLOOD ORDERABLES Final [facility]u lt [facility] 1 [facility] [place] [address] * (ABNORMAL) Aerobic and anaerobic culture and gram stain Wound Toe, fourth, right (12/04/2024 3:33 PM CDT) Direct Specimen Exam Stain: No polymorphonuclear leukocytes seen. Abundant Gram Positive Cocci Comment:Testing performed by : [facility], [address] [place]., [address] Report Final Report: Abundant Staphylococcus aureus Methicillin susceptible (MSSA) by penicillin binding protein 2a (PBP2a) testing. Rare Staphylococcus lugdunensis (.) SHONA Comment:Testing performed by : [facility], [address] [place]., [address] Organism STAPHYLOCOCCUS AUREUS VANDANANER Organism STAPHYLOCOCCUS LUGDUNENSIS [facility]ER Wound (Toe, fourth, right) 12/04/2024 3:33 PM CDT 12/05/2024 2:20 AM CDT Narrative [facility] CH - 12/12/2024 7:16 AM CDT Specimen received on an ESwab. Testing performed by [facility] ([phone]) Specimens submitted from normally sterile body sites [...] INTERPRETATION Susceptible Staphylococcus lugdunensis Ceftriaxone INTERPRETATION Susceptible Lisbet Apodaca NP LAB MICROBIOLOGY - GENERAL ORDERABLES Final [place] [facility] [address] [facility] Department [place] [address] * [place] INCISION & DRAINAGE ABSCESS SIMPLE/SINGLE (12/04/2024 2:45 PM CDT) Nick Thompson MD - 12/04/2024 2:45 PM CDT Nick [...] well with no immediate complications Lisbet Apodaca [employer] ARCHITECT IN CLINIC/BEDSIDE ORDERABLE S Final Result * [...] GENERAL OR DERABLES Final Result [facility] S[facility] [address] Department of Laboratories [place], [place] [id number] from Last 3 Months or Most Recently Relevant to Health Maintenance
--- OUTSIDE RECORDS SUMMARY | 2025-01-02 09:51 | XMS_ITS | Clinical Summary ---
Author Organization [facility] Address [address] [place] [address] Care Team Providers Care Drive Thru Order Taker Name Role Phone Michael Cheney MD Unavailable [phone] Nick Almanzar MD Primary Care Provider [phone] Source Comments [facility],non-owned Affiliates and Associated Physician Practices is amultiple site organization consisting of ambulatory clinics and hospital sitesin [place], [place], [place] and [place]. This disclosure is being madepursuant to the Care Everywhere program and may not contain all information available regarding this patient. Last updated 18.[facility] Allergies Active Allergy Reactions Criticality Noted Date [...] mg by mouth once daily 1 Active [place]-3 1000 MG Take 1 capsule by mouth [...] (01/16/2024): Added automatically from request for surgery [id number] IMO Replacement Utility 01/16/2024 Bilateral primary osteoarthritis [...] Sex Assigned at Male 03/25/2021 3:11 PM KEYBOARD OPERATOR Legal Sex Male 6:25 AM KEYBOARD OPERATOR Gender Identity Male 03/25/2021 3:11 PM KEYBOARD OPERATOR Sexual Orientation Straight 03/25/2021 3: 11 PM KEYBOARD OPERATOR Last Filed Vital Signs Vital Sign Reading Time Taken Comments Blood Pressure - - Pulse - - Temperature - - Respiratory Rate - - Oxygen Saturation - - Inhaled Oxygen Concentration - - Weight 93.9 kg (207 lb) 04/05/2021 2:31 PM KEYBOARD OPERATOR Height 171.5 cm (5' 7.5) 04/05/2021 2:31 PM KEYBOARD OPERATOR Body Mass Index 31.94 04/05/2021 2:31 PM KEYBOARD OPERATOR Plan of Treatment Health Maintenance Due Date Last Done Comments HEPATITIS C SCREENING 11/23/1964 DTAP/TDAP/TD VACCINES (1 - Tdap) 1965 PNEUMOCOCCAL VACCINE 50+ (1 of 2 - PCV) 1965 ZOSTER VACCINE (1 of 2) 1996 Respiratory Syncytial Virus (RSV) Vaccine Pt: or over 60 yrs (1 - 1-dose 75+ series) 2021 DEPRESSION SCREENING 04/16/2024 MEDICARE AWV CALENDAR YEAR 2024 COVID-19 VACCINE ( - 2024- season) 2024 01/26/2021, 06/29/2020, 06/08/2020 INFLUENZA VACCINE (#1) 2024 9, 03/12/2018, 03/12/2018, [...] topic Insurance [employer] MEDICARE ADV Care Teams Drive Thru Order Taker Relationship Specialty Start Date End Date Nick Almanzar MD [address] [place] [address] PCP - General Family Medicine 02/25/21 [place] [address] [place] [address] Orthopedic Surgery 01/25/18
--- OUTSIDE RECORDS SUMMARY | 2025-01-02 09:51 | XMS_ITS ---
Author Organization [facility] Address [address] [place] [address] Care Team Providers Care Finance Administrator Name Role Phone Luke Santiago MD Unavailable Michael Lynch MD Unavailable Nikc Almanzar MD Primary Care Provider [phone] Jony Wilcox MD Unavailable [phone] Maria A Seymour MD Unavailable [phone] Alex Urbina MD Unavailable [phone] Vanessa Darling NP Unavailable Active Problems Problem Noted Date Diagnosed Date [...] controlled; continue calcitriol 0.25 mcg daily; ergocalciferol 83942 units weekly Phimosis 12/19/2024 Depression 12/19/2024 Kidney [...] via J tube 06/21 and initially tolerating. Computer Network Support Specialist re advanced TFlushes & spot bolus IVF [...] via J tube 06/21 and initially tolerating. Computer Network Support Specialist re advanced TFlushes & spot bolus IVF [...] leukocytosis. Assessment & Plan (06/24/2022 5:08 PM AUTO GLASS WORKER): Per nursing over last few weeks has [...] Resumed TF via J tube 8 and tolerating. Computer Network Support Specialist re TFlushes. Continue Strict aspiration precautions. - ANIA recently NAD, no constipation. Assessment & Plan (06/23/2022 4:00 PM AUTO GLASS WORKER): Per nursing over last few weeks has [...] tube 8. Continue Strict aspiration precautions. - ANIA MELARA, no constipation. Assessment & Plan (06/22/2022 4:16 PM AUTO GLASS WORKER): Per nursing over last few weeks has had intermittent vomiting. - Started bolus TF to see if this helps. Rrecurrence with suspected aspiration 3/8 on bolus feeds. CXR neg for PNA. Add reglan q8hrs for GERD D/w IR and converted G to GJ tube 06/21/22 Resumed TF via J tube 06/21. Add low dose reglan for reflux 3/8. Continue Strict aspiration precautions. - Cont to observe. - ANIA MELARA. Assessment & Plan (06/21/2022 3:29 PM AUTO GLASS WORKER): Per nursing over last few weeks has had intermittent vomiting. - Started bolus TF to see if this helps. Rrecurrence with suspected aspiration 3/8 on bolus feeds. CXR neg for PNA. Add reglan q8hrs for GERD D/w IR and converted G to GJ tube 06/21/22 Resumed TF via J tube 8. Continue Strict aspiration precautions. - Cont to observe. - ANIA recently KELTON. Assessment & Plan (06/20/2022 6:17 PM AUTO GLASS WORKER): Per nursing over last few weeks has [...] negative. Assessment & Plan (06/24/2022 5:06 PM AUTO GLASS WORKER): UA on 06/15 with nitrates and >50 WBC. No urine cultures with MDR. Started IV ceftriaxone. Might be adding some component to the AMS, but no change noted with treatment with IV Ceftriaxone (3/2-c). Urine Cx growing Klebsiella variicola. Sensitivities include ceftriaxone. Pt completed 7 day course 06/22/22. Checked for urinary retention, bladder scan negative. Assessment & Plan (06/23/2022 3:59 PM AUTO GLASS WORKER): UA on 3/2 with nitrates and >50 WBC. No urine cultures with MDR. Started IV ceftriaxone. Might be adding some component to the AMS, but no change noted with treatment with IV Ceftriaxone (2-c). Urine Cx growing Klebsiella variicola. Sensitivities include ceftriaxone. Pt completed 7 day course 06/22/22. Checked for urinary retention, bladder scan negative. Assessment & Plan (06/22/2022 4:16 PM AUTO GLASS WORKER): UA on 32 with nitrates and >50 WBC. No urine cultures with MDR. Started IV ceftriaxone. Might be adding some component to the AMS, but no change noted with treatment with IV Ceftriaxone (32-c). Pt completed 7 day course 06/22/22. Checked for urinary retention, bladder scan negative. -Urine Cx growing Klebsiella variicola. Sensitivities back. S to CTX Assessment & Plan (06/21/2022 3:31 PM AUTO GLASS WORKER): UA on 32 with nitrates and >50 WBC. No urine cultures with MDR. Started IV ceftriaxone. Might be adding some component to the AMS. -Ceftriaxone 3/2- completes 7 day course on 06/22/22. Check for urinary retention, bladder scan negative. -Urine Cx growing Klebsiella variicola. Sensitivities back. S to CTX Assessment & Plan (06/19/2022 10:12 PM AUTO GLASS WORKER): UA on 3/2 with nitrates and >50 WBC. No urine cultures with MDR. Will start him on ceftriaxone while urine culture results. Might be adding some component to the AMS. -Ceftriaxone 3/2- complete 7 day course. Check for urinary retention. -Urine Cx growing Klebsiella variicola. Sensitivities back. S to CTX Assessment & Plan (06/16/2022 12:04 PM AUTO GLASS WORKER): UA on 3/2 with nitrates and >50 WBC. No urine cultures with MDR. Will start him on ceftriaxone while urine culture results. Might be adding some component to the AMS. -Ceftriaxone 06/15- -Urine Cx growing Klebsiella variicola. Sensitivities pending. Assessment & Plan (06/15/2022 1:24 PM AUTO GLASS WORKER): UA on 06/15 with nitrates and >50 [...] unremarkable. Assessment & Plan (06/24/2022 5:03 PM AUTO GLASS WORKER): Normocytic. AOCD pattern on labs. Likely from GIN, serious illness, frequent blood draws, etc. -Intermittently requiring PRBC last 06/03/22. F/u Hb 7.8, limit routine labs. No evidence of hematuria, melena or hematochezia. Assessment & Plan (06/23/2022 3:48 PM AUTO GLASS WORKER): Normocytic. AOCD pattern on labs. Likely from GIN, serious illness, frequent blood draws, etc. -Intermittently requiring PRBC last 06/03/22. F/u Hb 7.3, limit routine labs. No evidence of hematuria, melena or hematochezia. Assessment & Plan (06/22/2022 4:08 PM AUTO GLASS WORKER): Normocytic. AOCD pattern on labs. Likely from GIN, serious illness, frequent blood draws, etc. -Intermittently requiring PRBC last 06/03/22. F/u Hb 7.3, limit routine labs. No evidence of hematuria, melena or hematochezia. Assessment & Plan (06/21/2022 3:23 PM AUTO GLASS WORKER): Normocytic. AOCD pattern on labs. Likely from GIN, serious illness, frequent blood draws, etc. -Intermittently requiring PRBC last 06/03/22. F/u Hb 7.5, limit routine labs. Assessment & Plan (06/20/2022 6:09 PM AUTO GLASS WORKER): Normocytic. AOCD pattern on labs. Likely from GIN, serious illness, frequent blood draws, etc. -Intermittently requiring PRBC last 06/03/21. F/u Hb 7.5, limit routine labs. Assessment & Plan (06/16/2022 11:57 AM AUTO GLASS WORKER): Normocytic. AOCD pattern on labs. Likely from GIN, serious illness, frequent blood draws, etc. -Intermittently requiring PRBC last 06/03/21. Assessment & Plan (06/15/2022 1:22 PM AUTO GLASS WORKER): Normocytic. AOCD pattern on labs. Likely from GIN, serious illness, frequent blood draws, etc. -Intermittently requiring PRBC last 06/03/21. Assessment & Plan (06/14/2022 2:26 PM AUTO GLASS WORKER): Normocytic. AOCD pattern on labs. Likely from GIN, serious illness, frequent blood draws, etc. -Intermittently requiring PRBC last 06/03/21. F/u Hb 8.1. Assessment & Plan (06/13/2022 4:10 PM AUTO GLASS WORKER): Normocytic. AOCD pattern on labs. Likely from GIN, serious illness, frequent blood draws, etc. -Intermittently requiring PRBC last 06/03/21. F/u Hb 8.1. Assessment & Plan (06/12/2022 6:17 PM AUTO GLASS WORKER): Normocytic. AOCD pattern on labs. Likely from GIN, serious illness, frequent blood draws, etc. - intermittently requiring PRBC last 06/03/21. F/u Hb 8.1. Billing statement. I have reviewed current Hb 8.5, remains stable post recent transfusion with HD stability. Plan to limit blood draws, monitor serial counts for additional needs. Transfuse PRN Hb<7. Assessment & Plan (06/11/2022 4:33 PM AUTO GLASS WORKER): Normocytic. AOCD pattern on labs. Likely from GIN, serious illness, frequent blood draws, etc. - intermittently requiring PRBC last 06/03/21. F/u Hb 8.1. Billing statement. I have reviewed current Hb 8.5, remains stable post recent transfusion with HD stability. Plan to limit blood draws, monitor serial counts for additional needs. Transfuse PRN Hb<7 Assessment & Plan (06/10/2022 3:23 PM AUTO GLASS WORKER): Normocytic. AOCD pattern on labs. Likely from GIN, serious illness, frequent blood draws, etc. - intermittently requiring PRBC last 06/03/21. F/u Hb 8.1. Billing statement. I have reviewed current Hb 8.1, remains stable post recent transfusion with HD stability. Plan to limit blood draws, monitor serial counts for additional needs. Transfuse PRN Hb<7 Assessment & Plan (06/10/2022 9:24 AM AUTO GLASS WORKER): Normocytic. AOCD pattern on labs. Likely from GIN, serious illness, frequent blood draws, etc. - intermittently requiring PRBC last 06/03/21. F/u Hb 8.1. Billing statement. I have reviewed current Hb 8.1, remains stable post recent transfusion with HD stability. Plan to limit blood draws, monitor serial counts for additional needs. Transfuse PRN Hb<7 Assessment & Plan (06/08/2022 4:02 PM AUTO GLASS WORKER): Normocytic. AOCD pattern on labs. Likely from GIN, serious illness, frequent blood draws, etc. - intermittently requiring PRBC last 06/03/21. F/u Hb 8.1. Billing statement. I have reviewed current Hb 8.1, remains stable post recent transfusion with HD stability. Plan to limit blood draws, monitor serial counts for additional needs. Assessment & Plan (06/07/2022 11:00 AM AUTO GLASS WORKER): Normocytic. AOCD pattern on labs. Likely from GIN, serious illness, frequent blood draws, etc. - intermittently requiring PRBC last 06/03/21 Billing statement. I have reviewed current Hb 8.1, remains stable post recent transfusion with HD stability. Plan to limit blood draws, monitor serial counts for additional needs. Assessment & Plan (06/06/2022 6:31 PM AUTO GLASS WORKER): Normocytic. 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 - intermittently requiring PRBC last 06/03 Billing statement. I have reviewed current Hb 8.1, remains stable post transfusion. Plan to limit blood draws, monitor serial counts. Assessment & Plan (06/05/2022 2:00 PM AUTO GLASS WORKER): - Normocytic. 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 - intermittently requiring PRBC last 06/03 Assessment & Plan (06/04/2022 11:09 AM AUTO GLASS WORKER): - Normocytic. 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 - f/u CBC today p 1 unit PRBC 06/03 Assessment & Plan (06/03/2022 2:57 PM AUTO GLASS WORKER): - Normocytic. 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 - requiring 1 unit PRBC today for slow drop likely AOCD and lab draws Assessment & Plan (06/02/2022 2:26 PM AUTO GLASS WORKER): - Normocytic. 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 - cont to monitor H/H, transfuse for Hb < 7, remains relatively stable but at borderline of requiring PRBC Assessment & Plan (06/01/2022 2:18 PM AUTO GLASS WORKER): - Normocytic. 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 - cont to monitor H/H, transfuse for Hb < 7, remains relatively stable but at borderline of requiring PRBC Assessment & Plan (05/31/2022 2:57 PM AUTO GLASS WORKER): - Normocytic. 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 - cont to monitor H/H, transfuse for Hb < 7 Assessment & Plan (05/30/2022 2:03 PM AUTO GLASS WORKER): - Normocytic. 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 - cont to monitor H/H, transfuse for Hb < 7 Assessment & Plan (05/29/2022 3:13 PM AUTO GLASS WORKER): Normocytic. B12, folate normal. Likely from GIN, serious illness, frequent blood draws, etc. Drop over last 24 hrs likely dilutional due to IVF. No e/o bleeding - cont to monitor H/H, transfuse for Hb < 7 - ferritin high, c/w anemia of chronic dz Assessment & Plan (05/28/2022 1:53 PM AUTO GLASS WORKER): Normocytic. B12, folate normal. Likely from GIN, serious illness, frequent blood draws, etc. Drop over last 24 hrs likely dilutional due to IVF. No e/o bleeding - cont to monitor H/H, transfuse for Hb < 7 - ferritin high, c/w anemia of chronic dz Assessment & Plan (05/27/2022 3:53 PM AUTO GLASS WORKER): Normocytic. B12, folate normal. Likely from GIN, serious illness, frequent blood draws, etc. Drop over last 24 hrs likely dilutional due to IVF. No e/o bleeding - cont to monitor H/H, transfuse for Hb < 7 - ferritin high, c/w anemia of chronic dz Assessment & Plan (05/26/2022 1:22 PM AUTO GLASS WORKER): Normocytic. B12, folate normal. Likely from GIN, [...] -Apparently can get denosumab but would need HARDWARE TRAINER approval. Appreciate nephrology help sensipar not an [...] -Apparently can get denosumab but would need HARDWARE TRAINER approval. Appreciate nephrology help sensipar not an [...] status. Assessment & Plan (06/24/2022 5:06 PM AUTO GLASS WORKER): Normocalcemic on arrival. Uncorrected Ca as high [...] -Apparently can get denosumab but would need HARDWARE TRAINER approval. Appreciate nephrology help sensipar not an [...] am. Assessment & Plan (06/23/2022 3:58 PM AUTO GLASS WORKER): Normocalcemic on arrival. Uncorrected Ca as high [...] -Apparently can get denosumab but would need HARDWARE TRAINER approval. Appreciate nephrology help sensipar not an [...] 06/23. Assessment & Plan (06/22/2022 4:15 PM AUTO GLASS WORKER): Normocalcemic on arrival. Uncorrected Ca as high [...] -Apparently can get denosumab but would need HARDWARE TRAINER approval. Appreciate nephrology help sensipar not an [...] iCa. Assessment & Plan (06/21/2022 3:27 PM AUTO GLASS WORKER): Normocalcemic on arrival. Uncorrected Ca as high [...] -Apparently can get denosumab but would need HARDWARE TRAINER approval. Appreciate nephrology help sensipar not an [...] response. Assessment & Plan (06/20/2022 6:15 PM AUTO GLASS WORKER): Normocalcemic on arrival. Uncorrected Ca as high [...] -Apparently can get denosumab but would need HARDWARE TRAINER approval. Appreciate nephrology help sensipar not an [...] approval. Assessment & Plan (06/16/2022 11:57 AM AUTO GLASS WORKER): Normocalcemic on arrival. Uncorrected Ca as high [...] today Assessment & Plan (06/15/2022 1:22 PM AUTO GLASS WORKER): Normocalcemic on arrival. Uncorrected Ca as high [...] low level hyperCa. Recommend continued NPO by [facility] 06/08. - Continue water flushes per tube (300 q4). - Ca++ increased today: 12.1 (11.9). - if Cr continues to downtrend may be able to consider bisphosphonate. 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 - Cosyntropin test within normal limits, AI ruled out. Assessment & Plan (06/14/2022 2:26 PM AUTO GLASS WORKER): Normocalcemic on arrival. Uncorrected Ca as high [...] low level hyperCa. Recommend continued NPO by [facility] 06/08. - Continue water flushes per tube (300 q4). - Ca++ increased today: 12.1 (11.9). - if Cr continues to downtrend may be able to consider bisphosphonate. 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 Recommending ordering cosyntropin to rule out adrenal insufficiency. Assessment & Plan (06/13/2022 4:03 PM AUTO GLASS WORKER): Normocalcemic on arrival. Uncorrected Ca as high [...] low level hyperCa. Recommend continued NPO by [facility] 06/08. - Continue water flushes per tube (300 q4). - Ca++ decreased today: 11.9 (12.8). - if Cr continues to downtrend may be able to consider bisphosphonate. - Continue to monitor Assessment & Plan (06/12/2022 6:20 PM AUTO GLASS WORKER): Normocalcemic on arrival. Uncorrected Ca as high [...] low level hyperCa. Recommend continued NPO by [facility] 06/08. - cont water per tube (300 [...] supplementation. Assessment & Plan (06/11/2022 4:35 PM AUTO GLASS WORKER): Normocalcemic on arrival. Uncorrected Ca as high [...] low level hyperCa. Recommend continued NPO by [facility] 06/08. - cont water per tube (300 [...] supplementation. Assessment & Plan (06/10/2022 3:28 PM AUTO GLASS WORKER): Normocalcemic on arrival. Uncorrected Ca as high [...] supplementation. Assessment & Plan (06/10/2022 9:27 AM AUTO GLASS WORKER): Normocalcemic on arrival. Uncorrected Ca as high [...] supplementation. Assessment & Plan (06/08/2022 4:09 PM AUTO GLASS WORKER): Normocalcemic on arrival. Uncorrected Ca as high [...] supplementation. Assessment & Plan (06/07/2022 11:04 AM AUTO GLASS WORKER): Normocalcemic on arrival. Uncorrected Ca as high [...] supplementation. Assessment & Plan (06/06/2022 6:40 PM AUTO GLASS WORKER): Normocalcemic on arrival. Uncorrected Ca as high [...] supplementation. Assessment & Plan (06/05/2022 1:59 PM AUTO GLASS WORKER): - Normocalcemic on arrival. Uncorrected Ca as [...] now Assessment & Plan (06/04/2022 11:09 AM AUTO GLASS WORKER): - Normocalcemic on arrival. Uncorrected Ca as [...] considered Assessment & Plan (06/03/2022 2:56 PM AUTO GLASS WORKER): - Normocalcemic on arrival. Uncorrected Ca as [...] 11.4 Assessment & Plan (06/02/2022 2:25 PM AUTO GLASS WORKER): - Normocalcemic on arrival. Uncorrected Ca as [...] IVF Assessment & Plan (06/01/2022 2:18 PM AUTO GLASS WORKER): - Normocalcemic on arrival. Uncorrected Ca as [...] d/c Assessment & Plan (05/31/2022 2:57 PM AUTO GLASS WORKER): - Normocalcemic on arrival. Uncorrected Ca as [...] stable/downtrending Assessment & Plan (05/30/2022 2:01 PM AUTO GLASS WORKER): - Normocalcemic on arrival. Uncorrected Ca as [...] improve Assessment & Plan (05/29/2022 3:13 PM AUTO GLASS WORKER): - Normocalcemic on arrival. Uncorrected Ca as [...] improve Assessment & Plan (05/28/2022 1:52 PM AUTO GLASS WORKER): - Normocalcemic on arrival. Uncorrected Ca as [...] improve Assessment & Plan (05/27/2022 3:52 PM AUTO GLASS WORKER): - Normocalcemic on arrival. Uncorrected Ca as [...] today Assessment & Plan (05/26/2022 1:19 PM AUTO GLASS WORKER): - Normocalcemic on arrival. Uncorrected Ca as [...] IVF Assessment & Plan (05/27/2022 3:53 PM AUTO GLASS WORKER): - Has been hypo- and hypernatremic during course Sodium now normal, cont to monitor daily BMP Assessment & Plan (05/26/2022 1:19 PM AUTO GLASS WORKER): - Has been hypo- and hypernatremic during course Sodium now normal, cont to monitor daily BMP Cervical stenosis of spine 09/19/2021 Overview (09/19/2021): Added automatically from request for surgery [id number] Assessment & Plan (11/10/2022 9:33 AM CDT): [...] need NSGY clinic OP follow up at [place]; [facility] to arrange; Dr. Casas no longer at [facility] Assessment & Plan (06/26/2022 5:11 PM CDT): Presented for elective C 3-5 ACDF and C3-7 posterior fusion on 03/17/22. Sutures out. NSurg f/u appreciated. Plan MRI c/t spine as above, assess for structural or occult infection (unlikely). Touch base with neurosurgery when imaging available Elevated ESR, CRP. Will need NSGY clinic OP follow up at [place]. Surgical incision healed well. No muscular spasticity [...] need NSGY clinic OP follow up at [place]. Surgical incision healed well. No muscular spasticity noted on LE exam. Bilateral strength intact. Therapy per neurosurgery, if able to participate, currently doesn't follow commands. Assessment & Plan (06/24/2022 5:04 PM AUTO GLASS WORKER): Presented for elective C 3-5 ACDF and C3-7 posterior fusion on 03/17/22. Sutures out. NSurg f/u appreciated. Plan MRI c/t spine as above, assess for structural or occult infection (unlikely). Will need NSGY clinic OP follow up at [place]. Surgical incision healed well. No muscular spasticity noted on LE exam. Bilateral strength intact. Therapy per neurosurgery, if able to participate, currently doesn't follow commands. Assessment & Plan (06/23/2022 3:49 PM AUTO GLASS WORKER): Presented for elective C 3-5 ACDF and C3-7 posterior fusion on 03/17/22. Sutures out. NSurg f/u appreciated. Will need NSGY clinic OP follow up at [place]. Surgical incision healed well. No muscular spasticity noted on LE exam. Bilateral strength intact. Therapy per neurosurgery, if able to participate, currently doesn't follow commands. Assessment & Plan (06/22/2022 4:10 PM AUTO GLASS WORKER): Presented for elective C 3-5 ACDF and C3-7 posterior fusion on 03/17/22. Sutures out. Will need NSGY clinic OP follow up at [place]. Surgical incision healed well. No muscular spasticity noted on LE exam. Bilateral strength intact. Therapy per neurosurgery, if able to participate, currently doesn't follow commands. Assessment & Plan (06/21/2022 3:24 PM AUTO GLASS WORKER): Presented for elective C 3-5 ACDF and C3-7 posterior fusion on 03/17/22. Sutures out. Will need NSGY clinic OP follow up at [place]. Surgical incision healed well. No muscular spasticity noted on LE exam. Therapy per neurosurgery, if able to participate. Assessment & Plan (06/20/2022 6:10 PM AUTO GLASS WORKER): Presented for elective C 3-5 ACDF and C3-7 posterior fusion on 03/17/22. Sutures out. Will need NSGY clinic OP follow up at [place]. Surgical incision healed well. No muscular spasticity noted on LE exam. Therapy per neurosurgery, if able to participate. Assessment & Plan (06/16/2022 11:56 AM AUTO GLASS WORKER): Presented for elective C 3-5 ACDF and C3-7 posterior fusion on 03/17/22. Sutures out. Will need NSGY clinic OP follow up at [place]. Surgical incision healed well. No muscular spasticity noted on LE exam. Therapy per neurosurgery, if able to participate. Assessment & Plan (06/15/2022 1:19 PM AUTO GLASS WORKER): Presented for elective C 3-5 ACDF and C3-7 posterior fusion on 03/17/22. Sutures out. Will need NSGY clinic OP follow up at [place]. Surgical incision healed well. No muscular spasticity noted on LE exam. Therapy per neurosurgery, if able to participate. Assessment & Plan (06/14/2022 2:19 PM AUTO GLASS WORKER): Presented for elective C 3-5 ACDF and C3-7 posterior fusion on 03/17/22. Sutures out. Will need NSGY clinic OP follow up at [place]. Surgical incision healed well. No muscular spasticity noted on LE exam. Therapy per neurosurgery, if able to participate. Assessment & Plan (06/13/2022 3:58 PM AUTO GLASS WORKER): Presented for elective C 3-5 ACDF and C3-7 posterior fusion on 03/17/22. Sutures out. Will need NSGY clinic OP follow up at [place]. Surgical incision healed well. No muscular spasticity noted on LE exam. Therapy per neurosurgery, if able to participate. Assessment & Plan (06/12/2022 6:18 PM AUTO GLASS WORKER): Presented for elective C 3-5 ACDF and C3-7 posterior fusion on 03/17/22. Sutures out. Will need NSGY clinic OP follow up at [place]. Surgical incision healed well. No muscular spasticity noted on LE exam. Therapy per neurosurgery, if able to participate. Plan DC to SNF once bed available. Assessment & Plan (06/11/2022 4:33 PM AUTO GLASS WORKER): Presented for elective C 3-5 ACDF and C3-7 posterior fusion on 03/17/22. Sutures out. Will need NSGY clinic OP follow up at [place]. Surgical incision healed well. No muscular spasticity noted on exam. Therapy per neurosurgery. Plan DC to SNF once bed available. Assessment & Plan (06/10/2022 3:23 PM AUTO GLASS WORKER): Presented for elective C 3-5 ACDF and C3-7 posterior fusion on 03/17/22. Sutures out. Will need NSGY clinic OP follow up at [place]. Surgical incision healing well. No muscular spasticity noted on exam. Therapy per neurosurgery. Plan DC to SNF once bed available. Assessment & Plan (06/10/2022 9:24 AM AUTO GLASS WORKER): Presented for elective C 3-5 ACDF and C3-7 posterior fusion on 03/17/22. Sutures out. Will need NSGY clinic OP follow up [place]. Surgical incision healing well. No muscular spasticity noted on exam. Therapy per neurosurgery. Plan DC to SNF Assessment & Plan (06/08/2022 3:56 PM AUTO GLASS WORKER): Presented for elective C 3-5 ACDF and C3-7 posterior fusion on 03/17/22. Sutures out. Will need NSGY clinic OP follow up at [place]. Surgical incision healing well. No muscular spasticity noted on exam. Assessment & Plan (06/07/2022 10:57 AM AUTO GLASS WORKER): Presented for elective C 3-5 ACDF and C3-7 posterior fusion on 03/17/22. Sutures out. Will need NSGY clinic OP follow up at [place]. Surgical incision healing well. No muscular spasticity noted on exam. Assessment & Plan (06/06/2022 6:33 PM AUTO GLASS WORKER): Presented for elective C 3-5 ACDF and C3-7 posterior fusion on 03/17. Sutures out. Will need NSGY follow up at [place]. Surgical incision healing well. No muscular spasticity noted on exam. Assessment & Plan (06/05/2022 2:02 PM AUTO GLASS WORKER): - Presented for elective C 3-5 ACDF and C3-7 posterior fusion on 03/17. Sutures out. Will need [facility] follow up [place]. Assessment & Plan (05/31/2022 2:57 PM AUTO GLASS WORKER): - Presented for elective C 3-5 ACDF and C3-7 posterior fusion on 03/17. Sutures out. Will need [facility] follow up [place]. Assessment & Plan (05/30/2022 2:04 PM AUTO GLASS WORKER): - Presented for elective C 3-5 ACDF and C3-7 posterior fusion on 03/17. Sutures out. Will need [facility] follow up [place]. Assessment & Plan (05/29/2022 3:13 PM AUTO GLASS WORKER): - Presented for elective C 3-5 ACDF and C3-7 posterior fusion on 03/17. Sutures out. Will need [facility] follow up [place] [facility]. Assessment & Plan (05/28/2022 1:53 PM AUTO GLASS WORKER): - Presented for elective C 3-5 ACDF and C3-7 posterior fusion on 03/17. Sutures out. Will need [facility] follow up [place] [facility]. Assessment & Plan (05/27/2022 3:53 PM AUTO GLASS WORKER): - Presented for elective C 3-5 ACDF and C3-7 posterior fusion on 03/17. Sutures out. Will need [facility] follow up [place] [facility]. Assessment & Plan (05/25/2022 3:16 PM AUTO GLASS WORKER): - Presented for elective C 3-5 ACDF and C3-7 posterior fusion on 03/17. Sutures out. Will need [facility] follow up [place]. Strangulated inguinal hernia 09/19/2021 Overview (04/09/2022): Added automatically from request for surgery [id number] Assessment & Plan (08/16/2022 5:36 PM CDT): [...] stranding. Assessment & Plan (06/23/2022 4:00 PM [employer] GLASS WORKER): S/p ex lap and repair 04/09. Had evidence of intestinal ischemia. Well healed incision. -Still NPO, swallow study redone given his being more awake, but speech recommends continued NPO status. On J tube feeds. Assessment & Plan (06/22/2022 4:16 PM [employer] GLASS WORKER): S/p ex lap and repair 04/09. Had evidence of intestinal ischemia. Well healed incision. -Still NPO, swallow study redone given his being more awake, but speech recommends continued NPO status. Assessment & Plan (06/21/2022 3:27 PM [employer] GLASS WORKER): S/p ex lap and repair 04/09. Had evidence of intestinal ischemia. Well healed incision. -Still NPO, swallow study redone given his being more awake, but speech recommends continued NPO status. Assessment & Plan (06/20/2022 6:16 PM [employer] GLASS WORKER): S/p ex lap and repair 04/09. Had evidence of intestinal ischemia. Well healed incision. -Still NPO, swallow study redone given his being more awake, but speech recommends continued NPO status. Assessment & Plan (06/16/2022 11:56 AM AUTO GLASS WORKER): S/p ex lap and repair 04/09. Had evidence of intestinal ischemia. Well healed incision. -Tolerating TF at goal per Gtube. Nutritional needs appear to be getting met. -Remains NPO per speech follow up on 06/14. Ok to do ice chips. Assessment & Plan (06/15/2022 1:20 PM AUTO GLASS WORKER): S/p ex lap and repair 04/09. Had evidence of intestinal ischemia. Well healed incision. -Tolerating TF at goal per Gtube. Nutritional needs appear to be getting met. -Remains NPO per speech follow up on 06/14. Ok to do ice chips. Assessment & Plan (06/14/2022 2:20 PM AUTO GLASS WORKER): S/p ex lap and repair 04/09. Had evidence of intestinal ischemia. Well healed incision. -Tolerating TF at goal per Gtube. Nutritional needs appear to be getting met. -Remains NPO per speech follow up on 06/08. Ok to do ice chips. Assessment & Plan (06/13/2022 3:59 PM AUT[employer] GLASS WORKER): S/p ex lap and repair 04/09. Had evidence of intestinal ischemia. Well healed incision. -Tolerating TF at goal per Gtube. Nutritional needs appear to be getting met. -Remains NPO per speech follow up on 06/08. Assessment & Plan (06/12/2022 6:20 PM AUTO GLASS WORKER): S/p ex lap and repair 04/09. Had evidence of intestinal ischemia. Well healed incision. - tolerating TF per Gtube. Nutritional needs appear to be getting met. -Remains NPO per speech f/u 06/08. Billing statement I have reviewed electrolytes, K 3.6, ca 12.5. Discussed with RN and no tube feed residuals. Plan strict aspiration precautions, further advance diet and adjust tube feeds per backer up. Plan to recheck bed weight. Assessment & Plan (06/11/2022 4:35 PM [employer] GLASS WORKER): S/p ex lap and repair 04/09. Had evidence of intestinal ischemia. Well healed incision. - tolerating TF per Gtube. Nutritional needs appear to be getting met. -Remains NPO per speech f/u 06/08. Billing statement I have reviewed electrolytes, K 3.6, ca 12.5. Discussed with RN and no tube feed residuals. Plan strict aspiration precautions, further advance diet and adjust tube feeds per backer up. Plan to recheck bed weight. Assessment & Plan (06/10/2022 3:30 PM AUTO GLASS WORKER): S/p ex lap and repair 04/09. Had evidence of intestinal ischemia. Well healed incision. - tolerating TF per Gtube. Nutritional needs appear to be getting met. -Remains NPO per speech f/u 06/08. Billing statement I have reviewed electrolytes, K 3.6, ca 12.8. Discussed with RN and no tube feed residuals. Plan strict aspiration precautions, further advance diet and adjust tube feeds per backer up. Plan to recheck bed weight. Assessment & Plan (06/10/2022 9:27 AM AUTO GLASS WORKER): S/p ex lap and repair 04/09. Had evidence of intestinal ischemia. Well healed incision. - tolerating TF per Gtube. Nutritional needs appear to be getting met. - ADAT per speech. Billing statement I have reviewed electrolytes, K 3.3, ca 10.6. Discussed with RN and no tube feed residuals. Plan strict aspiration precautions, further advance diet and adjust tube feeds per backer up. Plan to recheck bed weight. Assessment & Plan (06/08/2022 4:11 PM AUT[employer] GLASS WORKER): S/p ex lap and repair 04/09. Had evidence of intestinal ischemia. Well healed incision. - tolerating TF per Gtube. Nutritional needs appear to be getting met. - ADAT per speech. Billing statement I have reviewed electrolytes, K 3.3, ca 10.6. Discussed with RN and no tube feed residuals. Plan further advance diet and adjust tube feeds per backer up. Plan to recheck bed weight. Assessment & Plan (06/07/2022 11:08 AM AUTO GLASS WORKER): S/p ex lap and repair 04/09. Had [...] weight. Assessment & Plan (06/06/2022 6:41 PM [employer] GLASS WORKER): - S/p ex lap and repair 04/09. Had evidence of intestinal ischemia. Well healed incision. - tolerating TF per Gtube. - NPO per speech. Billing statement I have reviewed electrolytes, K 3.3, ca 10.6. Discussed with RN and no tube feed residuals. Plan to continue tube feeds at current rate. Assessment & Plan (06/05/2022 2:01 PM [employer]ASS WORKER): - S/p ex lap and repair 04/09. Had evidence of intestinal ischemia. Well healed incision. - tolerating TF - NPO per speech Assessment & Plan (06/04/2022 11:09 AM [employer]O GLASS WORKER): - S/p ex lap and repair 04/09. Had evidence of intestinal ischemia. Well healed incision. - tolerating TF - NPO per speech Assessment & Plan (06/02/2022 2:26 PM [employer]ASS WORKER): - S/p ex lap and repair 04/09. Had evidence of intestinal ischemia. Well healed incision. - tolerating TF - NPO per speech Assessment & Plan (06/01/2022 2:18 PM [employer]ASS WORKER): - S/p ex lap and repair 04/09. Had evidence of intestinal ischemia. Well healed incision. - tolerating TF - NPO per speech Assessment & Plan (05/31/2022 2:57 PM [employer]ASS WORKER): - S/p ex lap and repair 04/09. Had evidence of intestinal ischemia. Well healed incision. - tolerating TF - NPO per speech Assessment & Plan (05/30/2022 2:04 PM [employer]ASS WORKER): - S/p ex lap and repair 04/09. Had evidence of intestinal ischemia. Well healed incision. - tolerating TF - NPO 2/2 mental status Assessment & Plan (05/29/2022 3:13 PM [employer]ASS WORKER): - S/p ex lap and repair 04/09. Had evidence of intestinal ischemia. Well healed incision. Assessment & Plan (05/28/2022 1:53 PM [employer]ASS WORKER): - S/p ex lap and repair 04/09. Had evidence of intestinal ischemia. Well healed incision. Assessment & Plan (05/27/2022 3:53 PM [employer]ASS WORKER): - S/p ex lap and repair 04/09. Had evidence of intestinal ischemia. Well healed incision. Assessment & Plan (05/25/2022 3:17 PM [employer]ASS WORKER): - S/p ex lap and repair 04/09. Had evidence of intestinal ischemia. Well healed incision. Age-related osteoporosis wit hout current pathological fracture 08/23/2021 Assessment & Plan (10/25/2021 3:35 PM CDT): Not well controlled, patient also has hypo vitamin-D Will start alendronate 70 mg weekly Continue ergocalciferol 95051 units weekly Ensure calcium approximately 1000 mg [...] (01/27/2021): Added automatically from request for surgery [id number] Bilateral primary osteoarthritis of knee 021 Assessment [...] ambulation Assessment & Plan (04/29/2021 11:06 AM [employer]O GLASS WORKER): Stable, patient reports occasional episodes of vertigo, [...] Stable. Assessment & Plan (06/24/2022 5:04 PM [employer] GLASS WORKER): History of COPD. Managed with Budesonide nebs and PRN albuterol. Prior exacerbation treatment this stay, currently controlled. Currently on RA, no wheezing. Unable to follow commands for MDI, continue nebulizers with RT and doing well. Stable. Assessment & Plan (06/23/2022 3:49 PM [employer] GLASS WORKER): History of COPD. Managed with Budesonide nebs and PRN albuterol. Prior exacerbation treatment this stay, currently controlled. Currently on RA, no wheezing. -Unable to follow commands for MDI, continue nebulizers with RT and doing well. Assessment & Plan (06/22/2022 4:10 PM [employer] GLASS WORKER): History of COPD. Managed with Budesonide nebs and PRN albuterol. Prior exacerbation treatment this stay, currently controlled. Currently on RA, no wheezing. -Unable to follow commands for MDI, continue nebulizers and doing well. Assessment & Plan (06/21/2022 3:24 PM AUT[employer] GLASS WORKER): History of COPD. Managed with Budesonide nebs and PRN albuterol. Prior exacerbation treatment this stay, currently controlled. Currently on RA, no wheezing. -Unable to follow commands for MDI, continue nebs. Doing well. Assessment & Plan (06/20/2022 6:10 PM [employer]ASS WORKER): History of COPD. Managed with Budesonide nebs and PRN albuterol. Prior exacerbation treatment this stay, currently controlled. Currently on RA, no wheezing. -Unable to follow commands for MDI, continue nebs. Doing well. Assessment & Plan (06/16/2022 11:50 AM AUTO GLASS WORKER): History of COPD. Managed with Budesonide nebs and PRN albuterol. Prior exacerbation treatment this stay, currently controlled. Currently on RA, no wheezing. -Unable to follow commands for MDI, continue nebs. Assessment & Plan (06/15/2022 1:18 PM [employer]ASS WORKER): History of COPD. Managed with Budesonide nebs and PRN albuterol. Prior exacerbation treatment this stay, currently controlled. Currently on RA, no wheezing. -Unable to follow commands for MDI, continue nebs. Assessment & Plan (06/14/2022 2:19 PM [employer] GLASS WORKER): History of COPD. Managed with Budesonide nebs and PRN albuterol. Prior exacerbation treatment this stay, currently controlled. Currently on RA, no wheezing. -Unable to follow commands for MDI, continue nebs. Assessment & Plan (06/13/2022 3:55 PM [employer]ASS WORKER): History of COPD. Managed with Budesonide nebs and PRN albuterol. Prior exacerbation treatment this stay, currently controlled. Currently on RA, no wheezing. -Unable to follow commands for MDI, continue nebs. Assessment & Plan (06/12/2022 6:18 PM [employer] GLASS WORKER): Hx COPD. Managed Budesonide nebs and PRN [...] plan. Assessment & Plan (06/11/2022 4:33 PM [employer]ASS WORKER): Hx COPD. Managed Budesonide nebs and PRN [...] plan. Assessment & Plan (06/10/2022 3:24 PM AUT[employer] GLASS WORKER): Hx COPD. Managed Budesonide nebs and PRN albuterol. Prior exacerbation treatment this stay, currently controlled On 2L-RA. Unable to follow commands for MDI, continue nebs. Billing statement Reviewed O2 requirements last 24hrs and recent chest imaging, exam without wheezing but encephalopathy limits use of MDIs. Plan to continue nebs as prescribed. No change in current plan. Assessment & Plan (06/10/2022 9:25 AM AUTO GLASS WORKER): Hx COPD. Managed Budesonide nebs and PRN albuterol. Prior exacerbation treatment this stay, currently controlled On 2L-RA. Billing statement Reviewed O2 requirements last 24hrs and recent chest imaging, exam without wheezing but encephalopathy limits use of MDIs. Plan to continue nebs as prescribed. No change in current plan. Assessment & Plan (06/08/2022 4:03 PM [employer]ASS WORKER): Hx COPD. Managed Budesonide nebs and PRN albuterol. Prior exacerbation treatment this stay, currently controlled On 2L-RA. Billing statement Reviewed O2 requirements last 24hrs and recent chest imaging, exam without wheezing but encephalopathy limits use of MDIs. Plan to continue nebs as prescribed. Assessment & Plan (06/07/2022 11:02 AM AUTO GLASS WORKER): - Budesonide nebs and PRN albuterol. Prior exacerbation treatment this stay, currently controlled On RA Billing statement Reviewed O2 requirements last 24hrs and recent chest imaging, exam without wheezing but encephalopathy limits use of MDIs. Plan to continue nebs as prescribed. Assessment & Plan (06/06/2022 6:34 PM [employer] GLASS WORKER): - Budesonide nebs and PRN albuterol. Prior exacerbation treatment this stay, currently controlled On RA Billing statement Reviewed O2 requirements and recent chest imaging. Plan DC continuous O2 sat monitoring. Assessment & Plan (06/05/2022 2:02 PM AUT[employer] GLASS WORKER): - Budesonide nebs and PRN albuterol. Prior exacerbation treatment this stay, currently controlled On RA Assessment & Plan (05/30/2022 2:04 PM [employer]ASS WORKER): - Budesonide nebs and PRN albuterol. Prior exacerbation treatment this stay, currently controlled On RA Assessment & Plan (05/29/2022 3:13 PM [employer]ASS WORKER): - Budesonide nebs and PRN albuterol. Prior exacerbation treatment this stay, currently controlled On RA Assessment & Plan (05/28/2022 1:53 PM [employer]ASS WORKER): - Budesonide nebs and PRN albuterol. Prior exacerbation treatment this stay, currently controlled On RA Assessment & Plan (05/27/2022 3:53 PM AUTO GLASS WORKER): - Budesonide nebs and PRN albuterol. Prior exacerbation treatment this stay, currently controlled On RA Assessment & Plan (05/26/2022 1:17 PM AUTO GLASS WORKER): - Budesonide nebs and PRN albuterol. Prior [...] Ellipta Assessment & Plan (06/07/2021 4:52 PM AUTO GLASS WORKER): Stable, well controlled; quit smoking approximately 24 years ago Active in pulmonary rehab, walking for up to 60 minutes at a time new line rare use of rescue inhaler Continue Trelegy Ellipta 1 puff daily Assessment & Plan (04/29/2021 11:07 AM AUTO GLASS WORKER): Stable, well controlled; patient reports he does get dyspneic especially significant exertion Follows with pulmonology for management Continue Trelegy Ellipta 1 puff daily, albuterol p.r.n. for dyspnea Assessment & Plan (02/21/2021 8:31 PM AUT[employer] GLASS WORKER): Continues to have significant cough, barking cough; [...] daily Assessment & Plan (06/07/2021 4:51 PM AUT[employer] GLASS WORKER): Stable, well controlled; continue to monitor Assessment & Plan (04/29/2021 11:07 AM AUTO GLASS WORKER): Stable, well controlled; patient reports occasional episodes of nocturia x1 Continue finasteride 5 mg daily Assessment & Plan (05/06/2020 12:57 PM AUTO GLASS WORKER): Patient does report increased urine frequency. UA [...] issues. Assessment & Plan (05/06/2020 12:56 PM AUTO GLASS WORKER): Continue meclizine prn. Assessment & Plan (04/08/2020 3:22 AM AUTO GLASS WORKER): Patient feels ataxic but [id number] and jyfx-ej-[id number] were normal. MRI is pending. Neurology has been consulted. Meclizine has not helped. Fall precautions. May need PT after MRI is completed. Assessment & Plan (04/07/2020 1:52 PM AUTO GLASS WORKER): With new lethargy, orthostatic hypotension- I believe [...] 03/04/2019 Assessment & Plan (03/04/2019 2:55 PM AUTO GLASS WORKER): Will do emg/ncs . Recommended cock-up wrist [...] monitor. Assessment & Plan (06/24/2022 5:05 PM AUTO GLASS WORKER): Continue amlodipine 10 mg daily. Discontinued home HCTZ on admit. On coreg and uptitrated to 25 BID on 06/05/22. Volume stable off dialysis. No peripheral edema. -Mostly normotensive, will continue to monitor. Assessment & Plan (06/23/2022 3:49 PM AUT[employer] GLASS WORKER): Continue amlodipine 10 mg daily. Discontinued home HCTZ on admit. On coreg and uptitrated to 25 BID on 06/05/22. Volume stable off dialysis. -Mostly normotensive, will continue to monitor. Assessment & Plan (06/22/2022 4:11 PM AUTO GLASS WORKER): Continue amlodipine 10 mg daily. Discontinued home HCTZ on admit. On coreg and uptitrated to 25 BID on 06/05/22. Volume stable off dialysis. -Mostly normotensive, will continue to monitor. Assessment & Plan (06/21/2022 3:25 PM AUTO GLASS WORKER): Continue amlodipine 10 mg daily. Discontinued home HCTZ on admit. On coreg and uptitrated to 25 BID on 06/05. Volume stable. -Mostly normotensive, will continue to monitor. Assessment & Plan (06/20/2022 6:10 PM AUTO GLASS WORKER): -Continue amlodipine 10 mg daily -Continue coreg. Uptitrated coreg 25 BID on 06/05. Volume stable. -Mostly normotensive, will continue to monitor. Assessment & Plan (06/16/2022 11:50 AM AUTO GLASS WORKER): -Continue amlodipine 10 mg daily -Continue coreg. Uptitrated coreg 25 BID on 06/05. -Mostly normotensive, will continue to monitor. Assessment & Plan (06/15/2022 1:17 PM AUTO GLASS WORKER): -Continue amlodipine 10 mg daily -Continue coreg. Uptitrated coreg 25 BID on 06/05. -Mostly normotensive, will continue to monitor. Assessment & Plan (06/14/2022 2:19 PM AUTO GLASS WORKER): -Continue amlodipine 10 mg daily -Continue coreg. Uptitrated coreg 25 BID on 06/05. -Mostly normotensive, will continue to monitor. Assessment & Plan (06/13/2022 3:54 PM AUTO GLASS WORKER): -Continue amlodipine 10 mg daily -Continue coreg. Uptitrated coreg 25 BID on 06/05. -Mostly normotensive, will continue to monitor. Assessment & Plan (06/12/2022 6:19 PM AUTO GLASS WORKER): Cont amlodipine, coreg, uptitrated coreg to 25 bid given persistent HTN 2/20. Improved trend, continue dosing at this level. Billing statement Plan continue dual agent control. Plan monitor renal function as OP. Assessment & Plan (06/11/2022 4:34 PM AUTO GLASS WORKER): Cont amlodipine, coreg, uptitrated coreg to 25 bid given persistent HTN 2/20. Improved trend, continue dosing at this level. Billing statement Plan continue dual agent control. Plan monitor renal function. Assessment & Plan (06/10/2022 3:25 PM AUTO GLASS WORKER): Cont amlodipine, coreg, uptitrated coreg to 25 bid given persistent HTN 2/20. Improved trend, continue dosing at this level. Billing statement Plan continue dual agent control. Plan monitor renal function. Assessment & Plan (06/10/2022 9:25 AM AUTO GLASS WORKER): Cont amlodipine, coreg, uptitrated coreg to 25 bid given persistent HTN 2/20. Improved trend, continue dosing at this level. Billing statement Plan continue dual agent control. Assessment & Plan (06/08/2022 4:04 PM AUTO GLASS WORKER): Cont amlodipine, coreg, uptitrated coreg to 25 bid given persistent HTN 2/20. Improved trend, continue dosing at this level. Billing statement Plan dual agent control. Assessment & Plan (06/07/2022 11:03 AM AUTO GLASS WORKER): Cont amlodipine, coreg, uptitrated coreg to 25 bid given persistent HTN 2/20. Improved trend, continue dosing at this level. Assessment & Plan (06/06/2022 6:35 PM AUTO GLASS WORKER): Cont amlodipine, coreg, uptitrated coreg to 25 bid given persistent HTN 2/20. Improved trend, will hold dosing at this level. Assessment & Plan (06/05/2022 2:02 PM AUTO GLASS WORKER): Cont amlodipine, coreg, uptitrated coreg to 25 bid given persistent HTN 2/20 Assessment & Plan (05/30/2022 2:05 PM AUTO GLASS WORKER): Cont amlodipine, coreg Assessment & Plan (05/29/2022 3:13 PM AUTO GLASS WORKER): Cont current meds Assessment & Plan (05/28/2022 1:53 PM AUTO GLASS WORKER): Cont current meds Assessment & Plan (05/27/2022 3:53 PM AUTO GLASS WORKER): Cont current meds Assessment & Plan (05/26/2022 1:17 PM AUTO GLASS WORKER): Cont current meds Assessment & Plan (12/20/2021 [...] mg Assessment & Plan (06/07/2021 4:50 PM AUTO GLASS WORKER): Stable, well controlled; blood pressure at target today Continue hydrochlorothiazide 25 mg daily Assessment & Plan (04/29/2021 11:04 AM AUTO GLASS WORKER): Controlled; blood pressure at target Continue amlodipine 10 mg, to chlorothiazide 25 mg, losartan 100 mg Assessment & Plan (07/20/2020 7:39 AM CDT): Rechecked in office and was 136/78. Will continue to monitor. May need to change medication. Pt also sees cardiology. Will see him back next month and will recheck Assessment & Plan (05/06/2020 12:55 PM AUT[employer] GLASS WORKER): Presented with elevated BP. Presently well controlled. Continue home Amlodipine and Losartan. HCTZ is on hold as patient is currently on iv fluids. Assessment & Plan (04/08/2020 3:18 AM AUTO GLASS WORKER): Amlodipine and losartan have been resumed with hold parameters. Holding hydrochlorothiazide as it can cause vertigo. Assessment & Plan (03/24/2020 8:24 AM AUTO GLASS WORKER): Blood pressure is adequately controlled on current [...] recommended. Assessment & Plan (06/07/2021 4:51 PM AUTO GLASS WORKER): Stable, well controlled; continue sertraline 100 mg [...] change. Assessment & Plan (05/06/2020 12:54 PM AUTO GLASS WORKER): Continue home Prozac. Mood is stable at this time. Assessment & Plan (04/08/2020 3:18 AM AUTO GLASS WORKER): Continue SSRI Assessment & Plan (03/24/2020 8:24 AM AUTO GLASS WORKER): Stable on current medication. Continue fluoxetine as [...] mg Assessment & Plan (06/07/2021 4:50 PM AUTO GLASS WORKER): Stable, well controlled; no side effects from current medication Continue rosuvastatin 40 mg daily Assessment & Plan (04/29/2021 11:05 AM AUTO GLASS WORKER): Stable, well controlled LDL less than 100; continues to have elevated ASCVD risk score 24.8% Continue rosuvastatin 40 mg daily, good blood pressure control Assessment & Plan (05/06/2020 12:54 PM AUTO GLASS WORKER): Continue home statin Assessment & Plan (04/08/2020 3:18 AM AUTO GLASS WORKER): Continue Crestor Assessment & Plan (03/24/2020 8:24 AM AUTO GLASS WORKER): Lipid abnormalities are stable, reviewed previous lipid levels in [facility]. Pharmacotherapy as ordered. Order for lipid [...] Lipids will be reassessed in 6 months. Current Treatment and Therapy Plans No current plan information found. Past Treatment and Therapy Plans Lifetime Dose Tracking * Chemical Lifetime Dose Automatic Entry Manual Entr y Fluoro Time 16.507 minutes 12.507 minutes 4 minutes Air kerma at the reference point (Ka,r) 602.952 mGy 1 20.952 mGy 482 mGy DLP 10,601.9 mGycm 10,601.9 mGycm 0 mGycm CTDIvol 2.68 mGy 2.68 mGy 0 mGy Resolved Problems Problem Noted Date Diagnosed Date [...] 03/18/2023 Assessment & Plan (06/17/2022 5:35 PM AUT[employer] GLASS WORKER): New dx after mild coughing noted and then called in 05/29 to note she tested positive at home. Remdesivir x 3 doses. No hypoxia/fever. COVID RECOVERED Assessment & Plan (06/16/2022 11:58 AM AUTO GLASS WORKER): New dx after mild coughing noted and then called in 05/29 to note she tested positive at home. Remdesivir x 3 doses. No hypoxia/fever. COVID RECOVERED Assessment & Plan (06/15/2022 1:22 PM AUTO GLASS WORKER): New dx after mild coughing noted and then called in 05/29 to note she tested positive at home. Remdesivir x 3 doses. No hypoxia/fever. COVID RECOVERED Assessment & Plan (06/14/2022 2:26 PM AUTO GLASS WORKER): New dx after mild coughing noted and then called in 05/29 to note she tested positive at home. Remdesivir x 3 doses. No hypoxia/fever. COVID RECOVERED Assessment & Plan (06/13/2022 4:14 PM AUTO GLASS WORKER): New dx after mild coughing noted and then called in 05/29 to note she tested positive at home. Remdesivir x 3 doses. No hypoxia/fever. COVID RECOVERED Assessment & Plan (06/12/2022 6:19 PM AUTO GLASS WORKER): - new dx after mild coughing noted [...] hospital policy 06/10, awaiting private room at . Assessment & Plan (06/11/2022 4:34 PM AUTO GLASS WORKER): - new dx after mild coughing noted [...] SNF. Assessment & Plan (06/10/2022 3:25 PM AUTO GLASS WORKER): - new dx after mild coughing noted [...] SNF. Assessment & Plan (06/10/2022 9:25 AM AUTO GLASS WORKER): - new dx after mild coughing noted [...] SNF. Assessment & Plan (06/08/2022 4:04 PM AUTO GLASS WORKER): - new dx after mild coughing noted [...] per hospital policy, awaiting private room at . Assessment & Plan (06/07/2022 11:03 AM AUTO GLASS WORKER): - new dx after mild coughing noted [...] per hospital policy, awaiting private room at . Assessment & Plan (06/06/2022 6:33 PM AUTO GLASS WORKER): - new dx after mild coughing noted [...] policy. Assessment & Plan (06/05/2022 1:56 PM AUTO GLASS WORKER): - new dx after mild coughing noted and then called in 05/29 to note she tested positive at home - given high risk for worsening and has mild cough gave remdesivir x 3 doses - remains on isolation (05/30 day 1) - anticipate 10 days - thus far no hypoxia/fever, still having intermittent cough Assessment & Plan (06/04/2022 11:00 AM AUTO GLASS WORKER): - new dx after mild coughing noted and then called in 05/29 to note she tested positive at home - given high risk for worsening and has mild cough gave remdesivir x 3 doses - remains on isolation (05/30 day 1) - anticipate 10 days - thus far no hypoxia/fever and cough slowly improving Assessment & Plan (06/03/2022 2:56 PM AUTO GLASS WORKER): - new dx after mild coughing noted and then called in 05/29 to note she tested positive at home - given high risk for worsening and has mild cough gave remdesivir x 3 doses - cough seems to be improving today, remains on isolation (05/30 day 1) - monitor for hypoxia/fever Assessment & Plan (06/02/2022 2:25 PM AUTO GLASS WORKER): - new dx after mild coughing noted and then called in 05/29 to note she tested positive at home - given high risk for worsening and has mild cough gave remdesivir x 3 doses - thus far still coughing, had one cough induced emesis event 06/01 PM - monitor for hypoxia/fever Assessment & Plan (06/01/2022 2:17 PM AUTO GLASS WORKER): - new dx after mild coughing noted and then called in 05/29 to note she tested positive at home - given high risk for worsening and has mild cough gave remdesivir x 3 doses which he finishes today; no further complication as of now - monitor for hypoxia, currently on RA Assessment & Plan (05/31/2022 2:56 PM AUTO GLASS WORKER): - new dx after mild coughing noted and then called in 05/29 to note she tested positive at home - given high risk for worsening and has mild cough will complete Remdesivir 200 mg x1 then 100 mg x 2 additional doses (completes 06/01) - monitor for hypoxia, currently on RA Assessment & Plan (05/30/2022 1:59 PM AUTO GLASS WORKER): - new dx after mild coughing noted and then called in last night to note she tested positive at home - given high risk for worsening and has mild cough will start Remdesivir 200 mg x1 then 100 mg x 2 additional doses - monitor for hypoxia, currently on RA Transaminitis 05/30/2022 06/17/2022 Assessment & Plan (06/17/2022 5:35 PM AUTO GLASS WORKER): Mild increase noted when diagnosed with Covid. Statin held. Now resolved. -Continue Crestor 10mg Assessment & Plan (06/16/2022 11:58 AM AUTO GLASS WORKER): Mild increase noted when diagnosed with Covid. Statin held. Now resolved. -Continue Crestor 10mg Assessment & Plan (06/15/2022 1:23 PM AUTO GLASS WORKER): Mild increase noted when diagnosed with Covid. Statin held. Now resolved. -Re-starting Crestor 10mg Assessment & Plan (06/14/2022 2:26 PM AUTO GLASS WORKER): Mild increase noted when diagnosed with Covid. Statin held. Now resolved. -Re-starting Crestor 10mg Assessment & Plan (06/13/2022 4:19 PM AUTO GLASS WORKER): Mild increase noted when diagnosed with Covid. Statin held. Now resolved. -Re-starting Crestor 10mg Assessment & Plan (06/05/2022 2:01 PM AUTO GLASS WORKER): - mild noted on recent labs, ?2/2 covid - still mild uptrend - holding statin as well in meantime, reviewed med list and rest of meds aren't big offenders for LFT issues Assessment & Plan (06/03/2022 2:57 PM AUTO GLASS WORKER): - mild noted on recent labs, ?viral vs. Other >meds - cont to hold statin and monitor > mildly better today, cont to watch Assessment & Plan (06/02/2022 2:26 PM AUTO GLASS WORKER): - mild noted on recent labs, ?viral vs. Other >meds - cont to hold statin and monitor Assessment & Plan (06/01/2022 2:19 PM AUTO GLASS WORKER): - mild noted on recent labs, ?viral vs. Other >meds - still mildly worsening so will hold statin at this point and observe course Assessment & Plan (05/31/2022 2:58 PM AUTO GLASS WORKER): - mild noted on recent labs, ?viral [...] monitoring. Assessment & Plan (06/24/2022 5:02 PM AUTO GLASS WORKER): R femoral v DVT noted on US 05/08. No pitting edema appreciated on RLE. Plan: Continue Apixaban 5 BID. Monitoring serial blood counts and Hb remains stable on serial monitoring. Assessment & Plan (06/23/2022 3:48 PM AUTO GLASS WORKER): R femoral v DVT noted on US 05/08. No pitting edema appreciated on RLE. Plan: - Continue Apixaban 5 BID. Monitoring serial blood counts and Hb remains stable on serial monitoring. Assessment & Plan (06/22/2022 4:07 PM AUTO GLASS WORKER): R femoral v DVT noted on US 05/08. No pitting edema appreciated on RLE. - Continue Apixaban 5 BID. Monitoring serial blood counts and Hb remains stable. Assessment & Plan (06/21/2022 3:22 PM AUTO GLASS WORKER): R femoral v DVT noted on US 05/08. No pitting edema appreciated on RLE. - Continue Apixaban 5 BID. Monitoring serial blood counts and remains stable. Assessment & Plan (06/20/2022 6:08 PM AUTO GLASS WORKER): R femoral v DVT noted on US 05/08. No pitting edema appreciated on RLE. - Continue Apixaban 5 BID. Assessment & Plan (06/16/2022 12:00 PM AUTO GLASS WORKER): R femoral v DVT noted on US /. No pitting edema appreciated on RLE. - Continue Apixaban 5 BID Assessment & Plan (06/15/2022 1:23 PM AUTO GLASS WORKER): R femoral v DVT noted on US 05/08. No pitting edema appreciated on RLE. - Continue Apixaban 5 BID Assessment & Plan (06/14/2022 2:26 PM AUTO GLASS WORKER): R femoral v DVT noted on US 05/08. No pitting edema appreciated on RLE. - Continue Apixaban 5 BID Assessment & Plan (06/13/2022 4:20 PM AUTO GLASS WORKER): R femoral v DVT noted on US 05/08. No pitting edema appreciated on RLE. - Continue Apixaban 5 BID Assessment & Plan (06/12/2022 6:16 PM AUTO GLASS WORKER): R femoral v DVT noted on US 05/08. Treating with apixaban 5 bid No pitting edema appreciated on RLE. F/u Hb 8.5 on anticoagulation. Billing statement Personally reviewed doppler results with RLE DVT and agree with continued plan for apixiban therapy for acute DVT for 3mo duration (triggered). Assessment & Plan (06/11/2022 4:32 PM AUTO GLASS WORKER): R femoral v DVT noted on US 05/08. Treating with apixaban 5 bid No pitting edema appreciated on RLE. F/u Hb 8.5 on anticoagulation. Billing statement Personally reviewed doppler results with RLE DVT and agree with continued plan for apixiban therapy for acute DVT for 3mo duration (triggered). Assessment & Plan (06/10/2022 3:21 PM AUTO GLASS WORKER): R femoral v DVT noted on US 05/08. Treating with apixaban 5 bid No pitting edema appreciated on RLE. F/u Hb 8.1 on anticoagulation. Billing statement I have reviewed doppler results with RLE DVT and agree with continued plan for apixiban therapy for acute DVT for 3mo duration (triggered). Assessment & Plan (06/10/2022 9:23 AM AUTO GLASS WORKER): R femoral v DVT noted on US 05/08. Treating with apixaban 5 bid No pitting edema appreciated on RLE. F/u Hb 8.1 on anticoagulation. Billing statement I have reviewed doppler results with RLE DVT and agree with continuing apixiban therapy for acute DVT for 3mo duration (triggered). Assessment & Plan (06/08/2022 4:01 PM AUTO GLASS WORKER): R femoral v DVT noted on US 05/08 - cont apixaban 5 bid No pitting edema appreciated. F/u Hb 8.1 on anticoagulation. Billing statement I have reviewed doppler results with RLE DVT and agree with continuing apixiban therapy for acute DVT for 3mo duration (triggered). Assessment & Plan (06/07/2022 10:59 AM AUTO GLASS WORKER): - noted on US 05/08 - cont apixaban 5 bid No pitting edema appreciated. Billing statement I have reviewed doppler results with RLE DVT and agree with continuing apixiban therapy for acute DVT for 3mo duration (triggered). Assessment & Plan (06/06/2022 6:28 PM AUTO GLASS WORKER): - noted on US 05/08 - cont apixaban 5 bid No pitting edema appreciated. Billing statement I have reviewed doppler results with RLE DVT and agree with continuing apixiban therapy for acute DVT. Assessment & Plan (06/05/2022 2:01 PM AUTO GLASS WORKER): - noted on 05/08 - cont apixaban 5 bid Assessment & Plan (06/04/2022 11:09 AM AUTO GLASS WORKER): - noted on 05/08 - cont apixaban 5 bid Assessment & Plan (06/03/2022 2:57 PM AUTO GLASS WORKER): - noted on 05/08 - cont apixaban 5 bid Assessment & Plan (06/02/2022 2:26 PM AUTO GLASS WORKER): - noted on 05/08 - cont apixaban 5 bid Assessment & Plan (06/01/2022 2:18 PM AUTO GLASS WORKER): - noted on 05/08 - cont apixaban 5 bid Assessment & Plan (05/31/2022 2:57 PM AUTO GLASS WORKER): - noted on 05/08 - cont apixaban 5 bid Assessment & Plan (05/30/2022 2:04 PM AUTO GLASS WORKER): - noted on 05/08 - cont apixaban 5 bid Goals of care, counseling/discussion 05/27/2022 03/18/2023 Assessment & Plan (07/14/2022 12:11 PM CDT): Multiple discussions throughout prolonged course, present goal is short term SNF placement w/ eventual goal of returning home. 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 Much appreciated. Assessment & Plan (06/26/2022 5:14 PM CDT): Poor prognosis for most of hospitalization with severe encephalopathy. Was not following commands with behavioral issues that prevented patient from going SNF as skilled (insurance will not cover SNF if he is unable to skill for rehab, which requires following commands). Awaited family decision on facility for snf care at SNF (vs [facility] with private duty, which family declines). [...] plans. 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 Much appreciated. Assessment & Plan (06/25/2022 10:21 AM CDT): Poor prognosis. Really not following commands and has behavioral issues that are preventing patient from going SNF as skilled (insurance will not cover SNF if he is unable to skill for rehab, which requires following commands). Awaiting family decision on facility for snf care at SNF (vs [facility] with private duty, which family declines). CM following and spoke with in f/u 06/21, 06/22, 06/23. Remains full code. Concern for recurrent aspiration events despite tube feeds and ongoing lack of progress seen in mental status. Anticipate family meeting once MRI results obtained to firm up DC plans. Consulted palliative care for assistance in retirement goals. Much appreciated. Assessment & Plan (06/24/2022 5:05 PM AUTO GLASS WORKER): Poor prognosis. Really not following commands and has behavioral issues that are preventing patient from going SNF as skilled (insurance will not cover SNF if he is unable to skill for rehab, which requires following commands). Awaiting family decision on facility for snf care at SNF (vs [facility] with private duty, which family declines). CM following and spoke with in f/u 06/21, 06/22, 06/23. Remains full code. Concern for recurrent aspiration events despite tube feeds and ongoing lack of progress seen in mental status. Anticipate family meeting once MRI results obtained to firm up DC plans. 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 Much appreciated. Assessment & Plan (06/23/2022 3:57 PM AUTO GLASS WORKER): Really not following commands and has behavioral issues that are preventing patient from going SNF as skilled (insurance will not cover SNF if he is unable to skill for rehab, which requires following commands). Awaiting family decision on facility for snf care at SNF (vs [facility] with private duty, which family declines). CM following and spoke with in f/u 06/21, 06/22. Remains full code. Concern for recurrent aspiration events despite tube feeds and ongoing lack of progress seen in mental status. Anticipate family meeting once MRI results obtained to firm up DC plans. Consulted palliative care for assistance in retirement goals. Much appreciated. Assessment & Plan (06/22/2022 4:13 PM AUTO GLASS WORKER): Really not following commands and has behavioral issues that are preventing patient from going SNF (insurance will not cover SNF if he is unable to skill for rehab, which requires following commands). Looking at snf care at SNF as OP (vs [facility] with private duty, family declines). CM following and spoke with in f/u 06/21. Remains full code. Concern for recurrent aspiration events despite tube feeds and ongoing lack of progress seen in mental status. Anticipate family meeting once MRI results obtained to firm up DC plans. 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 Assessment & Plan (06/21/2022 3:26 PM AUTO GLASS WORKER): Really not following commands and has behavioral issues that are preventing patient from going SNF (insurance will not cover SNF if he is unable to skill for rehab, which requires following commands). Looking at snf care at SNF as OP vs [facility] with private duty. CM following and spoke with in f/u 06/21. Remains full code. Anticipate family meeting once MRI results obtained to firm up DC plans. Consider palliative care involvement. Assessment & Plan (06/20/2022 6:11 PM AUTO GLASS WORKER): Really not following commands and has behavioral issues that are preventing patient from going SNF (insurance will not cover SNF if he is unable to skill for rehab, which requires following commands). CM following and spoke with in f/u 06/21. Remains full code. Assessment & Plan (06/16/2022 11:58 AM AUTO GLASS WORKER): Multiple discussions with from prior teams (Dr. Barksdale and Dr. Marley) > cont supportive treatments with goal of improvement of encephalopathy and d/c to SNF; remains Full Code. - Spouse, Normal, willing to accept MRI after today's discussion. - Anticipate d/c to SNF, however not medically ready yet. Assessment & Plan (06/15/2022 1:22 PM AUTO GLASS WORKER): Multiple discussions with from prior teams (Dr. Barksdale and Dr. Marley) > cont supportive treatments with goal of improvement of encephalopathy and d/c to SNF; remains Full Code. - Spouse, Normal, willing to accept MRI after today's discussion. - Anticipate d/c to SNF, however not medically ready yet. Assessment & Plan (06/14/2022 2:26 PM AUTO GLASS WORKER): Multiple discussions with from prior teams (Dr. Barksdale and Dr. Marlye) > cont supportive treatments with goal of improvement of encephalopathy and d/c to SNF; remains Full Code. - Spouse, Normal, willing to accept MRI after today's discussion. - Anticipate d/c to SNF, however not medically ready yet. Assessment & Plan (06/13/2022 4:22 PM AUTO GLASS WORKER): Multiple discussions with from prior teams (Dr. Barksdale and Dr. Marley) > cont supportive treatments with goal of improvement of encephalopathy and d/c to SNF; remains Full Code. - Spouse, Normal, willing to accept MRI after today's discussion. - Anticipate d/c to SNF, however not medically ready yet. Assessment & Plan (06/12/2022 6:19 PM AUTO GLASS WORKER): multiple discussions with , several times over [...] but no beds until late in week ([facility], [facility]). Needs private room for nebulizer use (??), as unable to use MDIs. Additional updated 06/11 with same plan for full code and no MRI. Assessment & Plan (06/11/2022 4:34 PM AUTO GLASS WORKER): multiple discussions with , several times over [...] but no beds until late in week ([facility], [facility]). Needs private room for nebulizer use, as unable to use MDIs. Additional updated 06/11 with same plan for full code and no MRI. Assessment & Plan (06/10/2022 3:25 PM AUTO GLASS WORKER): multiple discussions with , several times over [...] but no beds until late in week ([facility], [facility]). Needs private room for nebulizer use, as unable to use MDIs. Assessment & Plan (06/10/2022 9:26 AM AUTO GLASS WORKER): multiple discussions with , several times over [...] but no beds until late in week ([facility], [facility]). Needs private room for nebulizer use, as unable to use MDIs. Assessment & Plan (06/08/2022 4:05 PM AUTO GLASS WORKER): multiple discussions with , several times over [...] but no beds until late in week ([facility], [facility]). Needs private room for Covid, nebulizer use. Assessment & Plan (06/07/2022 11:04 AM AUTO GLASS WORKER): multiple discussions with , several times over [...] but no beds until late in week ([facility], [facility]) Assessment & Plan (06/06/2022 6:38 PM AUTO GLASS WORKER): multiple discussions with , several times over [...] but no beds until late in week ([facility]) Assessment & Plan (06/05/2022 2:00 PM AUTO GLASS WORKER): - as above again d/w'd multiple times [...] but no beds until late in week ([facility]) Assessment & Plan (06/04/2022 11:09 AM AUTO GLASS WORKER): - as above again d/w'd 05/30 and [...] but no beds until late in week ([facility]) Assessment & Plan (06/03/2022 2:58 PM AUTO GLASS WORKER): - as above again d/w'd 05/30 and [...] but no beds until late in week ([facility]) Assessment & Plan (06/02/2022 2:26 PM AUTO GLASS WORKER): - as above again d/w'd 05/30 and she reiterated similar goals as to Dr. Marley's note from 05/29 > cont supportive treatments with goal of improvement of encephalopathy and d/c to SNF; remains FC; does not want to pursue MRI for now at least Assessment & Plan (06/01/2022 2:18 PM AUTO GLASS WORKER): - as above again d/w'd 05/30 and she reiterated similar goals as to Dr. Marley's note from 05/29 > cont supportive treatments with goal of improvement of encephalopathy and d/c to SNF; remains FC; does not want to pursue MRI for now at least Assessment & Plan (05/31/2022 2:57 PM AUTO GLASS WORKER): - as above again d/w'd 05/30 and she reiterated similar goals as to Dr. Marley's note from 05/29 > cont supportive treatments with goal of improvement of encephalopathy and d/c to SNF; remains FC; does not want to pursue MRI for now at least Assessment & Plan (05/30/2022 2:03 PM AUTO GLASS WORKER): - as above again d/w'd and she reiterated similar goals as to Dr. Marley's note from 05/29 > cont supportive treatments with goal of improvement of encephalopathy and d/c to SNF; remains FC; does not want to pursue MRI for now at least Assessment & Plan (05/29/2022 3:14 PM AUTO GLASS WORKER): Ongoing discussions with patient's that I am [...] Code Assessment & Plan (05/28/2022 1:54 PM AUTO GLASS WORKER): Discussed with patient's yesterday and today that [...] discussions. Assessment & Plan (05/27/2022 3:55 PM AUTO GLASS WORKER): Discussed with patient's yesterday and today that [...] & son regarding options. Decline home with [facility] & private duty, agreeable to pursing sn[place] SNF [place]. Ayaka requests SNF with therapy. Ongoing CM//SW discussions without decision on facility, ongoing encouragement. Reiterated time may allow brain to heal, discussed benefits of set routine in managing behaviors retirement. Palliative care consulted 06/22 & appreciated. Discussed above at length with son 3/11 at bedside, Ay[place] daily when present (most days). Marked improvement with resolution of hypercalcemia. Able to tolerate up to chair daily. Plan family meeting once MRI results obtained. Plan PT/OT reevaluation and SNF at [place]. List provided by WILLEM. Await family decision. Assessment & Plan (06/25/2022 [...] HH & private duty, agreeable to pursing snf SNF [place]. [place] requests SNF with therapy. Ongoing CM//SW discussions without decision on facility, ongoing encouragement. 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 Palliative care consulted 06/22 & appreciated. Discussed above at length with son 06/24 at bedside. Plan family meeting once MRI results obtained. Plan snf SNF [place]. List provided by CM. Await family decision. Assessment & Plan (06/24/2022 5:02 PM AUTO GLASS WORKER): Likely multifactorial. Initially thought to be acute [...] HHC & private duty, agreeable to pursing sn[place] SNF [place]. [place] requests SNF with therapy. Ongoing CM//SW discussions without decision on facility, ongoing encouragement. Reiterated time may allow brain to heal, discussed benefits of set routine in managing behaviors retirement. Palliative care consulted 06/22 & appreciated. Discussed above at length with son 06/24 at bedside. Plan family meeting once MRI results obtained. Plan SNF [place]. List provided by CM. Await family decision. Assessment & Plan (06/23/2022 3:47 PM AUTO GLASS WORKER): Likely multifactorial. Initially thought to be acute [...] home with HHC & private duty vs sn[facility] SNF [place]. [place] requests SNF with therapy. Ongoing CM//SW discussions without decision. Palliative care consulted 06/22. Anticipate son to arrive 06/24. Plan family meeting once MRI results obtained. Assessment & Plan (06/22/2022 4:09 PM AUTO GLASS WORKER): Likely multifactorial. Thought to be acute delirium [...] discussions with regarding options of home with [facility] & private duty vs sn[place] SNF [place]. [place] requests SNF with therapy. Ongoing CM//SW discussions without decision. Palliative care consulted 06/22. Plan family meeting once MRI results obtained. Assessment & Plan (06/21/2022 3:22 PM AUTO GLASS WORKER): Likely multifactorial. Thought to be acute delirium [...] to encephalopathy, plan home with HHC vs sn[facility] SNF [place]. Ongoing CM//SW discussions for dispo planning. Will attempt family meeting once MRI results obtained. Assessment & Plan (06/20/2022 6:08 PM AUTO GLASS WORKER): Likely multifactorial. Thought to be acute delirium [...] restraints). Assessment & Plan (06/16/2022 11:57 AM AUTO GLASS WORKER): Likely multifactorial. Thought to be acute delirium [...] oxycodone Assessment & Plan (06/15/2022 1:22 PM AUTO GLASS WORKER): Likely multifactorial. Thought to be acute delirium [...] precautions. Assessment & Plan (06/14/2022 2:26 PM AUTO GLASS WORKER): Likely multifactorial. Thought to be acute delirium [...] precautions. Assessment & Plan (06/13/2022 4:10 PM AUTO GLASS WORKER): Likely multifactorial. Thought to be acute delirium [...] precautions. Assessment & Plan (06/12/2022 6:16 PM AUTO GLASS WORKER): Likely multifactorial ISO initial delirium and toxic-metabolic [...] 06/12 Assessment & Plan (06/11/2022 4:30 PM AUTO GLASS WORKER): Likely multifactorial ISO initial delirium and toxic-metabolic [...] available. Assessment & Plan (06/10/2022 3:21 PM AUTO GLASS WORKER): 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 [...] covid diagnosis, but unlikely given predating symptoms. [facility] [place]08 advanced to regular diet with nectar [...] available. Assessment & Plan (06/10/2022 9:22 AM AUTO GLASS WORKER): 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 [...] covid diagnosis, but unlikely given predating symptoms. [facility] [place] advanced to regular diet with nectar [...] ADAT. Assessment & Plan (06/08/2022 4:00 PM AUTO GLASS WORKER): 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 [...] covid diagnosis, but unlikely given predating symptoms. [facility] [place] 06/[place] advanced to regular diet with nectar [...] goals/adequacy. Assessment & Plan (06/07/2022 10:58 AM AUTO GLASS WORKER): 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 [...] seroquel) Assessment & Plan (06/06/2022 6:37 PM AUTO GLASS WORKER): 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 [...] status. Assessment & Plan (06/05/2022 1:56 PM AUTO GLASS WORKER): - Likely multifactorial ISO delirium and toxic-metabolic [...] 05/28) Assessment & Plan (06/04/2022 10:59 AM AUTO GLASS WORKER): - Likely multifactorial ISO delirium and toxic-metabolic [...] 05/28) Assessment & Plan (06/03/2022 2:55 PM AUTO GLASS WORKER): - Likely multifactorial ISO delirium and toxic-metabolic [...] 05/28) Assessment & Plan (06/02/2022 2:24 PM AUTO GLASS WORKER): - Likely multifactorial ISO delirium and toxic-metabolic [...] 05/28) Assessment & Plan (06/01/2022 2:17 PM AUTO GLASS WORKER): - Likely multifactorial ISO delirium and toxic-metabolic [...] 05/28) Assessment & Plan (05/31/2022 2:55 PM AUTO GLASS WORKER): - Likely multifactorial ISO delirium and toxic-metabolic [...] 05/28) Assessment & Plan (05/30/2022 1:58 PM AUTO GLASS WORKER): - Likely multifactorial ISO delirium and toxic-metabolic [...] 05/28) Assessment & Plan (05/29/2022 3:12 PM AUTO GLASS WORKER): 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 [...] 05/28) Assessment & Plan (05/28/2022 1:53 PM AUTO GLASS WORKER): 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 [...] [email or web address] Assessment & Plan (05/27/2022 3:51 PM AUTO GLASS WORKER): 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 [...] am Assessment & Plan (05/26/2022 1:25 PM AUTO GLASS WORKER): 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 [...] (04/03/2022): Added automatically from request for surgery [id number] Assessment & Plan (06/17/2022 5:35 PM AUTO GLASS WORKER): In setting of shock, PNA, pneumothorax, and AMS in post-op setting. Tracheostomy placed in ICU and decannulated 05/13, did well on 2L, weaned to RA. Remains stable. Small anterior cervical os with tiny air leak, occlusion dressing placed. Pt unable to stent when speaking due to encephalopathy. Assessment & Plan (06/16/2022 11:56 AM AUTO GLASS WORKER): In setting of shock, PNA, pneumothorax, and AMS in post-op setting. Tracheostomy placed in ICU and decannulated 05/13, did well on 2L, weaned to RA. Remains stable. Small anterior cervical os with tiny air leak, occlusion dressing placed. Pt unable to stent when speaking due to encephalopathy. Assessment & Plan (06/15/2022 1:20 PM AUTO GLASS WORKER): In setting of shock, PNA, pneumothorax, and AMS in post-op setting. Tracheostomy placed in ICU and decannulated 05/13, did well on 2L, weaned to RA. Remains stable. Small anterior cervical os with tiny air leak, occlusion dressing placed. Pt unable to stent when speaking due to encephalopathy. Assessment & Plan (06/14/2022 2:20 PM AUTO GLASS WORKER): In setting of shock, PNA, pneumothorax, and AMS in post-op setting. Tracheostomy placed in ICU and decannulated 05/13, did well on 2L, weaned to RA. Remains stable. Small anterior cervical os with tiny air leak, occlusion dressing placed. Pt unable to stent when speaking due to encephalopathy. Assessment & Plan (06/13/2022 3:58 PM AUTO GLASS WORKER): In setting of shock, PNA, pneumothorax, and AMS in post-op setting. Tracheostomy placed in ICU and decannulated 05/13, did well on 2L, weaned to RA. Remains stable. Small anterior cervical os with tiny air leak, occlusion dressing placed. Pt unable to stent when speaking due to encephalopathy. Assessment & Plan (06/12/2022 6:20 PM AUTO GLASS WORKER): In setting of shock, PNA, pneumothorax, and AMS in post-op setting. Tracheostomy placed in ICU and decannulated 05/13, now doing well on 2L, weaned to RA. Remains stable. Small anterior cervical os with tiny air leak, occlusion dressing placed. Pt unable to stent when speaking due to encephalopathy. Assessment & Plan (06/10/2022 3:30 PM AUTO GLASS WORKER): In setting of shock, PNA, pneumothorax, and AMS in post-op setting. Tracheostomy placed in ICU and decannulated 05/13, now doing well on 2L, weaned to RA. Remains stable. Small anterior cervical os with tiny air leak, occlusion dressing placed. Pt unable to stent when speaking due to encephalopathy. Assessment & Plan (06/10/2022 9:27 AM AUTO GLASS WORKER): In setting of shock, PNA, pneumothorax, and AMS in post-op setting. Tracheostomy placed in ICU and decannulated 05/13, now doing well on 2L, wean to RA Assessment & Plan (06/08/2022 4:11 PM AUTO GLASS WORKER): In setting of shock, PNA, pneumothorax, and AMS in post-op setting. Tracheostomy placed in ICU and decannulated 05/13, now doing well on 2L, wean to RA Assessment & Plan (05/30/2022 2:04 PM AUTO GLASS WORKER): - In setting of shock, PNA, pneumothorax, and AMS in post-op setting. Tracheostomy placed in ICU and decannulated 05/13, now doing well on RA Assessment & Plan (05/29/2022 3:13 PM AUTO GLASS WORKER): - In setting of shock, PNA, pneumothorax, and AMS in post-op setting. Tracheostomy placed in ICU and decannulated 05/13, now doing well on RA Assessment & Plan (05/28/2022 1:53 PM AUTO GLASS WORKER): - In setting of shock, PNA, pneumothorax, and AMS in post-op setting. Tracheostomy placed in ICU and decannulated 05/13, now doing well on RA Assessment & Plan (05/27/2022 3:53 PM AUTO GLASS WORKER): - In setting of shock, PNA, pneumothorax, and AMS in post-op setting. Tracheostomy placed in ICU and decannulated 05/13, now doing well on RA Assessment & Plan (05/25/2022 3:17 PM AUTO GLASS WORKER): - In setting of shock, PNA, pneumothorax, and AMS in post-op setting. Tracheostomy placed in ICU and decannulated 05/13, now doing well on RA Assessment & Plan (04/05/2022 12:16 PM AUTO GLASS WORKER): Ravinder Chapman is a 76 y.o. male with a PMHx of cervical myelopathy, COPD/AMAYA (CPAP at home), and obesity initially admitted to the [facility] [place] [facility] spine floor s/p C3-7 [...] saturation. Assessment & Plan (04/05/2021 5:48 PM AUTO GLASS WORKER): Patient reports no significant vertigo, but loses [...] 07/19/2020 Assessment & Plan (05/06/2020 12:58 PM AUTO GLASS WORKER): D- dimer is 815. Slightly elevated as age adjusted normal value for this patient is 730. Possibly secondary to current inflammatory process given acute colitis. Do not suspect PE or DVT. Colitis 05/05/2020 07/19/2020 Assessment & Plan (05/06/2020 12:54 PM AUTO GLASS WORKER): Presented with abdominalo pain X 2 days. [...] 09/22/2019 Assessment & Plan (03/04/2019 2:55 PM AUTO GLASS WORKER): Family hx of breast ca. Will order [...] weight-bearing; Assessment & Plan (04/29/2021 11:06 AM AUTO GLASS WORKER): Stable, patient has been working on weight [...] 01/14/2018 Assessment & Plan (04/10/2017 9:35 AM AUTO GLASS WORKER): Will treat with omnicef. Overall he's improved. [...] (07/15/2022 10:46 AM CDT): Severe GIN/ATN requiring ANESTHESIOLOGY PHYSICIAN ASSISTANT in setting of critical illness. Making reasonable amount of urine, creatinine stabilized off dialysis. Tunneled line removed 05/25. Cr appears to have improved to 1.2-1.3. GIN resolved. 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 -Continue to avoid nephrotoxins - encourage PO intake Assessment & Plan (06/26/2022 5:10 PM CDT): Severe GIN/ATN requiring ANESTHESIOLOGY PHYSICIAN ASSISTANT in setting of critical illness. Making reasonable amount of urine, creatinine stabilized off dialysis. Tunneled line removed 05/25. Cr appears to be plateaued <2. GIN resolved. 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 -Continue to avoid nephrotoxins -Cont intermittent IVF as needed for hypernatremia, as TF FW flushes doesn't seem to help as much, but further advanced. Computer Network Support Specialist reconsulted to address volume of flushes, water needs. -Volume status on exam appears good. Tx hypercalcemia as elsewhere, iCr 1.90 with holding of TF for recurrent vomiting. Assessment & Plan (06/25/2022 10:19 AM CDT): Severe GIN/ATN requiring ANESTHESIOLOGY PHYSICIAN ASSISTANT in setting of critical illness. Making reasonable amount of urine, creatinine stabilized off dialysis. Tunneled line removed 05/25. Cr appears to be plateaued <2. GIN resolved. 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 -Continue to avoid nephrotoxins -Cont intermittent IVF as needed for hypernatremia, as TF FW flushes doesn't seem to help as much, but further advanced. Computer Network Support Specialist reconsulted to address volume of flushes, water needs. -Volume status on exam appears good. Tx hypercalcemia as elsewhere, improvign trend. Assessment & Plan (06/24/2022 5:03 PM AUTO GLASS WORKER): Severe GIN/ATN requiring ANESTHESIOLOGY PHYSICIAN ASSISTANT in setting of critical illness. Making reasonable amount of urine, creatinine stabilized off dialysis. Tunneled line removed 05/25. Cr appears to be plateaued <2. GIN resolved. 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 -Continue to avoid nephrotoxins -Cont intermittent IVF as needed for hypernatremia, as TF FW flushes doesn't seem to help as much. Computer Network Support Specialist reconsulted to address volume of flushes, water needs. -Volume status on exam appears good. Tx hypercalcemia as elsewhere. Assessment & Plan (06/23/2022 3:48 PM AUTO GLASS WORKER): Severe GIN/ATN requiring ANESTHESIOLOGY PHYSICIAN ASSISTANT in setting of critical illness. Making reasonable [...] elsewhere. Assessment & Plan (06/22/2022 4:08 PM AUTO GLASS WORKER): Severe GIN/ATN requiring ANESTHESIOLOGY PHYSICIAN ASSISTANT in setting of critical illness. Making reasonable amount of urine, creatinine stabilized off dialysis. Tunneled line removed 05/25. Cr appears to be plateaued <2. GIN resolved. 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 -Continue to avoid nephrotoxins -Cont intermittent IVF as needed for hypernatremia, as TF FW flushes doesn't seem to help as much. Tx hypercalcemia as elsewhere. Assessment & Plan (06/21/2022 3:23 PM AUTO GLASS WORKER): Severe GIN/ATN requiring ANESTHESIOLOGY PHYSICIAN ASSISTANT in setting of critical illness. Making reasonable amount of urine, creatinine stabilizing off dialysis. Tunneled line removed 05/25. Cr appears to be plateaued <2. GIN resolved. 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 -Continue to avoid nephrotoxins -Cont intermittent D5w IV as needed for hypernatremia, as TF FW flushes doesn't seem to help as much. Assessment & Plan (06/20/2022 6:09 PM AUTO GLASS WORKER): Severe GIN/ATN requiring ANESTHESIOLOGY PHYSICIAN ASSISTANT in setting of critical illness. Making reasonable amount of urine, creatinine stabilizing off dialysis. Tunneled line removed 2. Cr appears to be plateaued <2. GIN resolved. 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 -Continue to avoid nephrotoxins -Cont NS IV as needed for hypernatremia, -TF FW flushes doesn't seem to help as much. Assessment & Plan (06/16/2022 11:56 AM AUTO GLASS WORKER): Severe GIN/ATN requiring ANESTHESIOLOGY PHYSICIAN ASSISTANT in setting of critical illness. Making reasonable amount of urine, creatinine stabilizing off dialysis. Tunneled line removed 05/25. Cr appears to be plateaued <2. GIN resolved. -Continue to avoid nephrotoxins Assessment & Plan (06/15/2022 1:19 PM AUTO GLASS WORKER): Severe GIN/ATN requiring ANESTHESIOLOGY PHYSICIAN ASSISTANT in setting of critical illness. Making reasonable amount of urine, creatinine stabilizing off dialysis. Tunneled line removed 05/25. Cr appears to be plateaued <2. GIN resolved. -Continue to avoid nephrotoxins Assessment & Plan (06/14/2022 2:19 PM AUTO GLASS WORKER): Severe GIN/ATN requiring ANESTHESIOLOGY PHYSICIAN ASSISTANT in setting of critical illness. Making reasonable amount of urine, creatinine stabilizing off dialysis. Tunneled line removed 05/25. Cr appears to be plateaued <2. GIN resolved. -Continue to avoid nephrotoxins Assessment & Plan (06/13/2022 3:57 PM AUTO GLASS WORKER): Severe GIN/ATN requiring ANESTHESIOLOGY PHYSICIAN ASSISTANT in setting of critical illness. Making reasonable amount of urine, creatinine stabilizing off dialysis. Tunneled line removed 05/25. Cr appears to be plateaued <2. GIN resolved. -Continue to avoid nephrotoxins Assessment & Plan (06/12/2022 6:17 PM AUTO GLASS WORKER): Severe GIN/ATN requiring ANESTHESIOLOGY PHYSICIAN ASSISTANT in setting of critical illness. Making reasonable amount of urine, creatinine stabilizing off dialysis - tunneled line removed 05/25 - cont to avoid nephrotoxins - Cr [...] PCP Assessment & Plan (06/11/2022 4:33 PM AUTO GLASS WORKER): Severe GIN/ATN requiring ANESTHESIOLOGY PHYSICIAN ASSISTANT in setting of critical illness. Making reasonable [...] PCP Assessment & Plan (06/10/2022 3:23 PM AUTO GLASS WORKER): Severe GIN/ATN requiring ANESTHESIOLOGY PHYSICIAN ASSISTANT in setting of critical illness. Making reasonable [...] exams. Assessment & Plan (06/10/2022 9:23 AM AUTO GLASS WORKER): Severe GIN/ATN requiring ANESTHESIOLOGY PHYSICIAN ASSISTANT in setting of critical illness. Making reasonable [...] exams. Assessment & Plan (06/08/2022 4:02 PM AUTO GLASS WORKER): Severe GIN/ATN requiring ANESTHESIOLOGY PHYSICIAN ASSISTANT in setting of critical illness. Making reasonable [...] exams. Assessment & Plan (06/07/2022 11:00 AM AUTO GLASS WORKER): Severe GIN/ATN requiring ANESTHESIOLOGY PHYSICIAN ASSISTANT in setting of critical illness. Making reasonable [...] exams. Assessment & Plan (06/06/2022 6:29 PM AUTO GLASS WORKER): - Severe GIN/ATN requiring ANESTHESIOLOGY PHYSICIAN ASSISTANT in setting of critical illness. Making reasonable [...] exams. Assessment & Plan (06/05/2022 2:00 PM AUTO GLASS WORKER): - Severe GIN/ATN requiring ANESTHESIOLOGY PHYSICIAN ASSISTANT in setting of critical illness. Making reasonable amount of urine, creatinine stabilizing off dialysis - tunneled line removed 2/9 - cont to avoid nephrotoxins - Cr appears to be leveling off around 2 thus far Assessment & Plan (06/04/2022 11:03 AM AUTO GLASS WORKER): - Severe GIN/ATN requiring ANESTHESIOLOGY PHYSICIAN ASSISTANT in setting of critical illness. Making reasonable amount of urine, creatinine stabilizing off dialysis - tunneled line removed 2/9 - cont to avoid nephrotoxins Assessment & Plan (06/03/2022 2:56 PM AUTO GLASS WORKER): - Severe GIN/ATN requiring ANESTHESIOLOGY PHYSICIAN ASSISTANT in setting of critical illness. Making reasonable amount of urine, creatinine stabilizing off dialysis - tunneled line removed 2/9 - cont to avoid nephrotoxins Assessment & Plan (06/02/2022 2:25 PM AUTO GLASS WORKER): - Severe GIN/ATN requiring ANESTHESIOLOGY PHYSICIAN ASSISTANT in setting of critical illness. Making reasonable amount of urine, creatinine stabilizing off dialysis - tunneled line removed 2/9 - cont to avoid nephrotoxins Assessment & Plan (06/01/2022 2:18 PM AUTO GLASS WORKER): - Severe GIN/ATN requiring ANESTHESIOLOGY PHYSICIAN ASSISTANT in setting of critical illness. Making reasonable amount of urine, creatinine stabilizing off dialysis - tunneled line removed 2/9 - cont to avoid nephrotoxins Assessment & Plan (05/31/2022 2:57 PM AUTO GLASS WORKER): - Severe GIN/ATN requiring ANESTHESIOLOGY PHYSICIAN ASSISTANT in setting of critical illness. Making reasonable amount of urine, creatinine stabilizing off dialysis - tunneled line removed 2/9 - cont to avoid nephrotoxins Assessment & Plan (05/30/2022 2:02 PM AUTO GLASS WORKER): - Severe GIN/ATN requiring ANESTHESIOLOGY PHYSICIAN ASSISTANT in setting of critical illness. Making reasonable amount of urine, creatinine stabilizing off dialysis - tunneled line removed 2/9 - cont to avoid nephrotoxins Assessment & Plan (05/29/2022 3:13 PM AUTO GLASS WORKER): - Severe GIN/ATN requiring ANESTHESIOLOGY PHYSICIAN ASSISTANT in setting of critical illness. Making good urine, creatinine stable off dialysis - tunneled line removed 2/9 - cont to avoid nephrotoxins Assessment & Plan (05/28/2022 1:53 PM AUTO GLASS WORKER): - Severe GIN/ATN requiring ANESTHESIOLOGY PHYSICIAN ASSISTANT in setting of critical illness. Making good urine, creatinine stable off dialysis - tunneled line removed 2/9 - cont to avoid nephrotoxins Assessment & Plan (05/27/2022 3:52 PM AUTO GLASS WORKER): - Severe GIN/ATN requiring ANESTHESIOLOGY PHYSICIAN ASSISTANT in setting of critical illness. Making good urine, creatinine slowly improving off dialysis - tunneled line removed 2/9 - cont to avoid nephrotoxins Assessment & Plan (05/26/2022 1:17 PM AUTO GLASS WORKER): - Severe GIN/ATN requiring ANESTHESIOLOGY PHYSICIAN ASSISTANT in setting of critical illness. Making good urine, creatinine has stabilized off dialysis - tunneled line removed 05/25 - cont to avoid nephrotoxins
[2025-01-02 10:51] LABS: Anion Gap 5 mmol/L (4-12); Blood Urea Nitrogen 38 mg/dL (9-20); Calcium 9.8 mg/dL (8.4-10.2); Carbon Dioxide 28 mmol/L (22-30); Chloride 109 mmol/L (98-107); Estimated Glomerular Filt Rate 42; Glucose 90 mg/dL (65-110); Potassium 4.1 mmol/L (3.4-5.0); Sodium 142 mmol/L (137-145)
== END 2025-01-02 09:48 | disposition home or self-care (01) ==
PROVIDERS: PCP Hospitalist; Visit Provider Internal Medicine Nephrology
DX: N18.32 Chronic kidney disease, stage 3b (principal)
CPT/HCPCS: 36415; 80048